=== PATIENT | male | born 1940 | race Caucasian/White ===

== ENCOUNTER 2017-10-22 15:56 | Observation (INO) | payer OTHER ==
[~2017-10-22] VITALS: Ht 172.7 cm; Wt 81.5 kg
[2017-10-22] MEDS ORDERED: SODIUM CHLORIDE 0.9% 1000ML 1,000 ML IV SCH ×2 (16:18→20:15)
[2017-10-22 16:27] LABS: BASO % 0.3 %; BASO ABS # 0.02 K/uL (0-0.2); COMPLETE YES; EOS % 2.4 %; HEMATOCRIT 36.6 % (42-52); IG% 0.6 %; MEAN CELL VOLUME 95.1 fL (80-100); MEAN CORPUSCULAR HEMOGLOBIN 32.5 pg (25-34); MEAN CORPUSCULAR HGB CONC 34.2 g/dl (32-36); MEAN PLATELET VOLUME 9.6 fL (7.4-10.4); MONO % 6.6 %; NEUT % 79.1 %; PLATELET COUNT 191 K/uL (130-400); RED BLOOD COUNT 3.85 M/uL (4.7-6.1); WHITE BLOOD COUNT 6.37 K/uL (4.8-10.8)
--- NOTE | 2017-10-22 16:34 | DIAGNOSTIC IMAGING REPORT ---
CT SCAN OF THE BRAIN WITHOUT IV CONTRAST CLINICAL HISTORY: Strokelike symptoms. COMPARISON STUDY: No priors. TECHNIQUE: Unenhanced axial CT scan of the brain is performed from the vertex to the skull base. CT DOSE: 712.55 mGy.cm FINDINGS: Brain parenchyma: There are age-related involutional changes noting [id number] patchy subcortical and periventricular microangiopathic change. There is no hemorrhage, mass effect, or evidence of acute territorial ischemia by CT criteria. Saxena-white matter is preserved. No extra-axial fluid collection is seen. Ventricles, sulci, cisterns: Prominent secondary to involutional change. Intracranial vasculature: There is atherosclerotic calcification of the cavernous carotid and vertebral arteries. Calvarium: Unremarkable. Sinuses and mastoids: Trace mucosal thickening is seen in the right maxillary antrum. The remaining visualized paranasal sinuses are clear. The mastoid air cells are well pneumatized. Orbits: The bony orbits are grossly intact. IMPRESSION: There is no hemorrhage, mass effect, or evidence of acute territorial ischemia by CT criteria. Electronically signed by: Rylan Ho M.D. 10/22/2017 4:33 PM Dictated Date/Time: 10/22/2017 4:31 PM
[2017-10-22 16:38] LABS: PARTIAL THROMBOPLASTIN RATIO 1.1; PROTHROMBIN TIME (PATIENT) 10.5 SECONDS (9.0-12.0)
[2017-10-22 16:50] LABS: BLOOD UREA NITROGEN 31 mg/dl (7-18); BUN/CREATININE RATIO 16.9 (10-20); CREATININE 1.84 mg/dl (0.60-1.40); GLUCOSE 121 mg/dl (70-99); POTASSIUM 4.2 mmol/L (3.5-5.1); SODIUM 137 mmol/L (136-145)
[2017-10-22 16:51] LABS: CALCIUM 9.6 mg/dl (8.5-10.1); CARBON DIOXIDE 25 mmol/L (21-32); CHLORIDE 103 mmol/L (98-107); MAGNESIUM 2.2 mg/dl (1.8-2.4)
--- NOTE | 2017-10-22 16:52 | DIAGNOSTIC IMAGING REPORT ---
CHEST ONE VIEW PORTABLE CLINICAL HISTORY: Stroke. COMPARISON STUDY: Chest CT August 10, 2014. FINDINGS: Postoperative findings within the left hemithorax with volume loss are unchanged since CT of August 10, 2014. Blunting of the left costophrenic angle is chronic. Old left-sided rib deformities are noted. There is no evidence of pulmonary edema or pneumonia. A large hiatal hernia is noted. Cardiomediastinal silhouette is stable. IMPRESSION: No acute cardiopulmonary findings. No change in appearance of the chest. Electronically signed by: Blair Robles M.D. 10/22/2017 4:51 PM Dictated Date/Time: 10/22/2017 4:50 PM
[2017-10-22 16:56] LABS: CKMB/CK RATIO 1.8 (0-3.0)
[2017-10-22] MEDS ORDERED: PRT/20 PO (17:06)
[2017-10-22] MEDS ORDERED: ZNTT/150 PO (17:06)
[2017-10-22] MEDS ORDERED: CHOL20009 PO (17:06)
[2017-10-22] MEDS ORDERED: DUTA0.5C PO (17:06)
[2017-10-22] MEDS ORDERED: MONT1TAB3 PO (17:06)
[2017-10-22] MEDS ORDERED: SIMV10TA2 PO (17:06)
[2017-10-22] MEDS ORDERED: CLR10 PO (17:06)
[2017-10-22] MEDS ORDERED: PRED-301 PO (17:06)
[2017-10-22] MEDS ORDERED: LOSA25TA18 PO (17:06)
[2017-10-22] MEDS ORDERED: TAMS0.4C38 PO (17:06)
[2017-10-22] MEDS ORDERED: PHARMACIST DISCHARGE MED REC CONSULT PRN (18:30)
[2017-10-22] MEDS ORDERED: IV FLUIDS COMPLETED PRN (18:45)
[2017-10-22] MEDS ORDERED: HydrALAZINE HCL 20 MG/ML VIAL IV. PRN (18:45)
--- NOTE | 2017-10-22 18:45 | History and Physical ---
History & Physical Date & Time of Service: Oct 22, 2017 at 18:45 Chief Complaint: Headache Primary Care Physician: Lexis Jasso M.D. History of Present Illness Source: patient, family, hospital records 77 year old male with PMH HTN, CAD s/p stent, Aortic aneurysm repair, Left carotid endarterectomy presents to the Emergency Room with complaints difficulty to find words. Pt said that today he woke up with a severe headache. He said that later in the afternoon he was trying to explain something to the cleaning lady but he could not find the words. He said that he was having trouble to formulate words. Pt said that the episode lasted about few minutes. Pt said that he had the same episode about 3 weeks ago where he could not find word. He monae that the headache located in the frontal area, constant, pounding. He denies any vision changes, weakness, numbness, dizziness, slur speech, chest pain, palpitation. Past Medical/Surgical History Medical Problems: (1) HTN (hypertension) Status: Chronic Surgical Problems: (1) Lung cancer Status: Resolved (2) S/P partial lobectomy of lung Status: Resolved Left side Carotid Endarterectomy AAA repair BPH Social History Smoking Status: Former Smoker Allergies Coded Allergies: Penicillins (Verified Allergy, Unknown, UNKNOWN, 10/22/17) Home Medications Scheduled Cholecalciferol (Vitamin D), 1 TAB PO DAILY Dutasteride (Avodart), 0.5 MG PO DAILY Loratadine (Claritin), 10 MG PO DAILY Losartan Potassium (Cozaar), 25 MG PO UD Montelukast Sodium (Singulair), 10 MG PO DAILY Pantoprazole (Protonix), 20 MG PO DAILY Prednisone (Prednisone), 5 MG PO DAILY Ranitidine (Zantac), 150 MG PO DAILY Simvastatin (Zocor), 10 MG PO QPM Tamsulosin Hcl (Flomax), 0.4 MG PO DAILY Review of Systems Constitutional: No fever, No chills, No weakness Eyes: No worsening of vision, No diplopia ENT: No hearing loss, No nasal symptoms Respiratory: No cough, No sputum, No shortness of breath Cardiovascular: No chest pain, No orthopnea, No claudication, No palpitations Abdomen: No pain, No nausea, No vomiting Musculoskeletal: No swelling, No calf pain Genitourinary - Male: No hematuria, No dysuria Neurologic: No paralysis, No weakness, No numbness/tingling Psychiatric: No depression symptoms, No substance abuse Endocrine: No excessive thirst Hematologic / Lymphatic: No abnormal bleeding/bruising Integumentary: No rash, No itch Physical Exam Vital Signs Date Time Temp Pulse Resp B/P (MAP) Pulse Ox O2 Delivery O2 Flow Rate FiO2 10/22/17 18:39 76 20 160/88 98 Room Air 10/22/17 17:44 79 18 191/108 95 Room Air 10/22/17 17:23 78 10/22/17 17:19 80 20 166/97 96 Room Air 10/22/17 16:45 98 Room Air 10/22/17 16:44 76 23 168/105 98 Room Air 10/22/17 16:13 79 24 170/108 95 10/22/17 16:04 36.7 76 24 180/113 97 Room Air General Appearance: WD/WN, no apparent distress Head: normocephalic Eyes: PERRL, EOMI ENT: hearing grossly normal Neck: no adenopathy, no JVD Respiratory/Chest: normal breath sounds, no respiratory distress, no accessory muscle use Cardiovascular: regular rate, rhythm, no JVD Abdomen/GI: normal bowel sounds, non tender, soft Back: no CVA tenderness Extremities/Musculoskelatal: no calf tenderness, no pedal edema Neurologic/Psych: pm technician II-XII nml as tested, no motor/sensory deficits, alert, oriented x 3 Skin: warm/dry, no rash Diagnostics Laboratory Results Results Past 24 Hours Test 10/22/17 15:35 10/22/17 16:53 10/22/17 17:00 Range/Units White Blood Count 6.37 4.8-10.8 K/uL Red Blood Count 3.85 4.7-6.1 M/uL Hemoglobin 12.5 14.0-18.0 g/dL Hematocrit 36.6 42-52 % Mean Corpuscular Volume 95.1 80-100 fL Mean Corpuscular Hemoglobin 32.5 25-34 pg Mean Corpuscular Hemoglobin Concent 34.2 32-36 g/dl Platelet Count 191 130-400 K/uL Mean Platelet Volume 9.6 7.4-10.4 fL Neutrophils (%) (Auto) 79.1 % Lymphocytes (%) (Auto) 11.0 % Monocytes (%) (Auto) 6.6 % Eosinophils (%) (Auto) 2.4 % Basophils (%) (Auto) 0.3 % Neutrophils # (Auto) 5.04 1.4-6.5 K/uL Lymphocytes # (Auto) 0.70 1.2-3.4 K/uL Monocytes # (Auto) 0.42 0.11-0.59 K/uL Eosinophils # (Auto) 0.15 0-0.5 K/uL Basophils # (Auto) 0.02 0-0.2 K/uL RDW Standard Deviation 47.3 36.4-46.3 fL RDW Coefficient of Variation 13.6 11.5-14.5 % Immature Granulocyte % (Auto) 0.6 % Immature Granulocyte # (Auto) 0.04 0.00-0.02 K/uL Prothrombin Time 10.5 9.0-12.0 SECONDS Prothromb Time International Ratio 1.0 0.9-1.1 Activated Partial Thromboplast Time 28.0 21.0-31.0 SECONDS Partial Thromboplastin Ratio 1.1 Sodium Level 137 136-145 mmol/L Potassium Level 4.2 3.5-5.1 mmol/L Chloride Level 103 98-107 mmol/L Carbon Dioxide Level 25 21-32 mmol/L Anion Gap 8.0 3-11 mmol/L Blood Urea Nitrogen 31 7-18 mg/dl Creatinine 1.84 0.60-1.40 mg/dl Est Creatinine Clear Calc Drug Dose 34.9 ml/min Estimated GFR () 39.8 Estimated GFR (Non- 34.3 BUN/Creatinine Ratio 16.9 10-20 Random Glucose 121 70-99 mg/dl Calcium Level 9.6 8.5-10.1 mg/dl Magnesium Level 2.2 1.8-2.4 mg/dl Total Creatine Kinase 111 39-308 U/L Creatine Kinase MB 2.0 0.5-3.6 ng/ml Creatine Kinase MB Ratio 1.8 0-3.0 Troponin I < 0.015 0-0.045 ng/ml Bedside Glucose 148 70-99 mg/dl Bedside Prothrombin Time INR 1.0 0.9-1.[address] SCAN OF THE BRAIN WITHOUT IV CONTRAST CLINICAL HISTORY: Strokelike symptoms. COMPARISON STUDY: No priors. TECHNIQUE: Unenhanced axial CT scan of the brain is performed from the vertex to the skull base. CT DOSE: 712.55 mGy.cm FINDINGS: Brain parenchyma: There are age-related involutional changes noting [id number]-ev-[id number] patchy subcortical and periventricular microangiopathic change. There is no hemorrhage, mass effect, or evidence of acute territorial ischemia by CT criteria. Saxena-white matter is preserved. No extra-axial fluid collection is seen. Ventricles, sulci, cisterns: Prominent secondary to involutional change. Intracranial vasculature: There is atherosclerotic calcification of the cavernous carotid and vertebral arteries. Calvarium: Unremarkable. Sinuses and mastoids: Trace mucosal thickening is seen in the right maxillary antrum. The remaining visualized paranasal sinuses are clear. The mastoid air cells are well pneumatized. Orbits: The bony orbits are grossly intact. IMPRESSION: There is no hemorrhage, mass effect, or evidence of acute territorial ischemia by CT criteria. Electronically signed by: Rylan Ho M.D. 10/22/2017 4:33 PM Dictated Date/Time: 10/22/2017 4:31 PM CHEST ONE VIEW PORTABLE CLINICAL HISTORY: Stroke. COMPARISON STUDY: Chest CT August 10, 2014. FINDINGS: Postoperative findings within the left hemithorax with volume loss are unchanged since CT of August 10, 2014. Blunting of the left costophrenic angle is chronic. Old left-sided rib deformities are noted. There is no evidence of pulmonary edema or pneumonia. A large hiatal hernia is noted. Cardiomediastinal silhouette is stable. IMPRESSION: No acute cardiopulmonary findings. No change in appearance of the chest. Electronically signed by: Blair Robles M.D. 10/22/2017 4:51 PM Dictated Date/Time: 10/22/2017 4:50 PM Impression Assessment and Plan Difficulty to find words Need to R/O CVA CT head showed no acute intracranial abnormality Will get a MRI of the head, carotid u/s and ECHO Start on ASA 81 mg Neuro check EKG showed normal sinus rhythm Will keep SBP btw 160 to 170 Continue telemetry Neurology consult Check lipid, TSH, B12 Headache Possible related to Elevated BP Will start on tylenol prn HTN BP elevated Keep BP elevated for now Hydralazine PRN Hold losartan due to elevated creatine CKD Creatine elevated Unknown baseline Hold losartan Gentle IVF Monitor BMP avoid nephrotoxic agents CAD s/p stent Denies any chest pain Not on beta jesus Only taking ASA 3x weekly troponin negative AAA repair Stable Left Carotid Endarterectomy Carotid Doppler pending BPH Continue flomax and avodart Stable DVT px On heparin subq Code Status Full code Level of Care Telemetry Resuscitation Status FULL RESUSCITATION VTE Prophylaxis VTE Risk Assessment Done? Y/N: Yes Risk Level: Moderate Given or contraindicated: Unfractionated heparin SQ
--- NOTE | 2017-10-22 19:35 | DIAGNOSTIC IMAGING REPORT ---
ULTRASOUND OF THE CAROTID ARTERIES CLINICAL HISTORY: Aphasia. COMPARISON STUDY: No priors. TECHNIQUE: Real-time, grayscale, and color Doppler sonography of the carotid arteries is performed. Images are reviewed in the transverse and longitudinal planes. FINDINGS: Blood pressures were not assessed due to IV sites. The carotid arteries are patent bilaterally and demonstrate antegrade flow. There is pvch-[id number] echogenic shadowing atherosclerotic plaque seen the carotid arteries bulbs bilaterally, right greater than left. Normal doppler arterial waveforms are seen throughout. Velocity measurements are listed below. Common carotid peak systolic velocity (cm/sec): RIGHT: 98 LEFT: 89 ICA proximal peak systolic velocity (cm/sec): RIGHT: 64 LEFT: 69 ICA mid peak systolic velocity (cm/sec): RIGHT: 77 LEFT: 73 ICA distal peak systolic velocity (cm/sec): RIGHT: 54 LEFT: 67 ICA/CC peak systolic ratio: RIGHT: 0.8 LEFT: 0.8 Antegrade flow was shown in the vertebral arteries. The external carotid arteries are patent. IMPRESSION: 1. There is no sonographic evidence of hemodynamically significant stenosis in the right or left carotid arterial system. 2. Antegrade flow is shown in the vertebral arteries. Electronically signed by: Rylan Ho M.D. 10/22/2017 7:33 PM Dictated Date/Time: 10/22/2017 7:32 PM
[2017-10-22 20:04] VITALS: BP 183/99; PULSE 77; TEMP 36.6; O2SAT 95
[2017-10-22 20:05] VITALS: BP 183/99; PULSE 76; TEMP 35.8; TEMP 36.6; Ht 172.7 cm; Wt 81.5 kg
[2017-10-22 20:08] VITALS: BP 183/99; PULSE 76; TEMP 36.6; O2SAT 95
--- NOTE | 2017-10-22 20:14 | EMERGENCY ROOM VISIT NOTE ---
History Report prepared by Live: Suleman Joya Under the Supervision of: Dr. Todd Herbert M.D. First contact with patient: 16:11 Chief Complaint: HEADACHE Stated Complaint: HEADACHE History of Present Illness The patient is a 77 year old male who presents to the Emergency Room with complaints of a persistent frontal headache that began early this morning when he awoke. This afternoon about 3 hours ago, he began having trouble formulating his words. This was noticed by his cleaning lady while they were having a conversation. This only lasted about 5 minutes. The exact same episode happened 2 or 3 weeks ago as well. He denies any vision trouble, trouble ambulating, trouble swallowing, sinus congestion, weakness, or numbness. He has a past medical history of lung cancer with a partial lobectomy and hypertension. He states that he took his normal medications today. He denies any history of a previous stroke. Source of History: patient Onset: 3 hours ago Position: head Symptom Intensity: moderate Quality: ache Timing: constant Associated Symptoms: No weakness, No numbness Note: He had a 5 minute episode that was described as trouble formulating his words. He denies any trouble with his vision, gait, or ability to swallow. Review of Systems See HPI for pertinent positives & negatives. A total of 10 systems reviewed and were otherwise negative. Past Medical & Surgical Medical Problems: (1) Aphasia (2) HTN (hypertension) Surgical Problems: (1) Lung cancer (2) S/P partial lobectomy of lung Family History Omitted secondary to the patient's age. Social History Smoking Status: Former Smoker Smokeless Tobacco Use: No Drug Use: none Occupation Status: retired Current/Historical Medications Scheduled Cholecalciferol (Vitamin D), 1 TAB PO DAILY Dutasteride (Avodart), 0.5 MG PO DAILY Loratadine (Claritin), 10 MG PO DAILY Losartan Potassium (Cozaar), 25 MG PO UD Montelukast Sodium (Singulair), 10 MG PO DAILY Pantoprazole (Protonix), 20 MG PO DAILY Prednisone (Prednisone), 5 MG PO DAILY Ranitidine (Zantac), 150 MG PO DAILY Simvastatin (Zocor), 10 MG PO QPM Tamsulosin Hcl (Flomax), 0.4 MG PO DAILY Allergies Coded Allergies: Penicillins (Verified Allergy, Unknown, UNKNOWN, 10/22/17) Physical Exam Vital Signs Date Time Temp Pulse Resp B/P (MAP) Pulse Ox O2 Delivery O2 Flow Rate FiO2 10/22/17 17:44 79 18 191/108 95 Room Air 10/22/17 17:23 78 10/22/17 17:19 80 20 166/97 96 Room Air 10/22/17 16:45 98 Room Air 10/22/17 16:44 76 23 168/105 98 Room Air 10/22/17 16:13 79 24 170/108 95 10/22/17 16:04 36.7 76 24 180/113 97 Room Air Physical Exam Constitutional: Vital signs reviewed. Eyes: Pupils are equal round reactive to light. Conjunctiva are noninjected. ENT: Pharynx is clear without erythema or exudate. Mucous membranes are moist. Neck supple without meningeal signs. Respiratory: Clear to auscultation bilaterally. Breath sounds are equal bilaterally. Cardiovascular: Regular rate and rhythm. No rubs or gallops. GI: Soft, nondistended and nontender. Bowel sounds are present. Musculoskeletal: No peripheral edema. No lower extremity tenderness. Integumentary: No cyanosis. Neurological: The patient is awake and alert. Cranial nerves II-XII are intact. Motor is 5 out of 5 all extremities. Sensation is intact to light touch all extremities. Normal speech. No pronator drift. No limb ataxia. Psychiatric: Normal affect. Medical Decision & Procedures ER Provider Diagnostic Interpretation: Radiology results as stated below per my review and the radiologist's interpretation: CT SCAN OF THE BRAIN WITHOUT IV CONTRAST CLINICAL HISTORY: Strokelike symptoms. COMPARISON STUDY: No priors. TECHNIQUE: Unenhanced axial CT scan of the brain is performed from the vertex to the skull base. CT DOSE: 712.55 mGy.cm FINDINGS: Brain parenchyma: There are age-related involutional changes noting [id number] patchy subcortical and periventricular microangiopathic change. There is no hemorrhage, mass effect, or evidence of acute territorial ischemia by CT criteria. Saxena-white matter is preserved. No extra-axial fluid collection is seen. Ventricles, sulci, cisterns: Prominent secondary to involutional change. Intracranial vasculature: There is atherosclerotic calcification of the cavernous carotid and vertebral arteries. Calvarium: Unremarkable. Sinuses and mastoids: Trace mucosal thickening is seen in the right maxillary antrum. The remaining visualized paranasal sinuses are clear. The mastoid air cells are well pneumatized. Orbits: The bony orbits are grossly intact. IMPRESSION: There is no hemorrhage, mass effect, or evidence of acute territorial ischemia by CT criteria. Electronically signed by: Rylan Ho M.D. 10/22/2017 4:33 PM Dictated Date/Time: 10/22/2017 4:31 PM CHEST ONE VIEW PORTABLE CLINICAL HISTORY: Stroke. COMPARISON STUDY: Chest CT August 10, 2014. FINDINGS: Postoperative findings within the left hemithorax with volume loss are unchanged since CT of August 10, 2014. Blunting of the left costophrenic angle is chronic. Old left-sided rib deformities are noted. There is no evidence of pulmonary edema or pneumonia. A large hiatal hernia is noted. Cardiomediastinal silhouette is stable. IMPRESSION: No acute cardiopulmonary findings. No change in appearance of the chest. Electronically signed by: Blair Robles M.D. 10/22/2017 4:51 PM Dictated Date/Time: 10/22/2017 4:50 PM Laboratory Results 10/22/17 15:35 Red Blood Count 3.85, Mean Corpuscular Volume 95.1, Mean Corpuscular Hemoglobin 32.5, Mean Corpuscular Hemoglobin Concent 34.2, Mean Platelet Volume 9.6, Neutrophils (%) (Auto) 79.1, Lymphocytes (%) (Auto) 11.0, Monocytes (%) (Auto) 6.6, Eosinophils (%) (Auto) 2.4, Basophils (%) (Auto) 0.3, Neutrophils # (Auto) 5.04, Lymphocytes # (Auto) 0.70, Monocytes # (Auto) 0.42, Eosinophils # (Auto) 0.15, Basophils # (Auto) 0.02 10/22/17 15:35 Test 10/22/17 15:35 10/22/17 16:53 10/22/17 17:00 White Blood Count 6.37 K/uL (4.8-10.8) Red Blood Count 3.85 M/uL (4.7-6.1) Hemoglobin 12.5 g/dL (14.0-18.0) Hematocrit 36.6 % (42-52) Mean Corpuscular Volume 95.1 fL (80-100) Mean Corpuscular Hemoglobin 32.5 pg (25-34) Mean Corpuscular Hemoglobin Concent 34.2 g/dl (32-36) Platelet Count 191 K/uL (130-400) Mean Platelet Volume 9.6 fL (7.4-10.4) Neutrophils (%) (Auto) 79.1 % Lymphocytes (%) (Auto) 11.0 % Monocytes (%) (Auto) 6.6 % Eosinophils (%) (Auto) 2.4 % Basophils (%) (Auto) 0.3 % Neutrophils # (Auto) 5.04 K/uL (1.4-6.5) Lymphocytes # (Auto) 0.70 K/uL (1.2-3.4) Monocytes # (Auto) 0.42 K/uL (0.11-0.59) Eosinophils # (Auto) 0.15 K/uL (0-0.5) Basophils # (Auto) 0.02 K/uL (0-0.2) RDW Standard Deviation 47.3 fL (36.4-46.3) RDW Coefficient of Variation 13.6 % (11.5-14.5) Immature Granulocyte % (Auto) 0.6 % Immature Granulocyte # (Auto) 0.04 K/uL (0.00-0.02) Prothrombin Time 10.5 SECONDS (9.0-12.0) Prothromb Time International Ratio 1.0 (0.9-1.1) Activated Partial Thromboplast Time 28.0 SECONDS (21.0-31.0) Partial Thromboplastin Ratio 1.1 Anion Gap 8.0 mmol/L (3-11) Est Creatinine Clear Calc Drug Dose 34.9 ml/min Estimated GFR () 39.8 Estimated GFR (Non- 34.3 BUN/Creatinine Ratio 16.9 (10-20) Calcium Level 9.6 mg/dl (8.5-10.1) Magnesium Level 2.2 mg/dl (1.8-2.4) Total Creatine Kinase 111 U/L (39-308) Creatine Kinase MB 2.0 ng/ml (0.5-3.6) Creatine Kinase MB Ratio 1.8 (0-3.0) Troponin I < 0.015 ng/ml (0-0.045) Bedside Glucose 148 mg/dl (70-99) Bedside Prothrombin Time INR 1.0 (0.9-1.1) Laboratory results as reviewed by me. ECG Indication: other (Neurologic symptoms) Rate (beats per minute): 77 Rhythm: normal sinus Findings: Q waves (Inferior), no ectopy, other (LVH) ED Course 1611: The patient was evaluated in room B4. A complete history and physical exam was performed. 1618: Ordered Sodium Chloride 1000 ml @ 50 mls/hr IV 1726: Upon reevaluation, the patient informed me that he used to take Plavix many years ago but was taken off of it because of his lung resection. He was told that it was dangerous to continue taking it having underwent this procedure. He takes Aspirin 3 times a week. I also reviewed his test results with him at this time. 1730: [facility] We discussed the patient and his results. The patient will be further evaluated by them for further management. Medical Decision This is a 77-year-old male presents with headache and difficulty with his speech. Differential diagnosis includes expressive aphasia, CVA, TIA, metabolic derangement, intracranial mass, intracranial hemorrhage. I did perform a limited focused review of portions of the patient's old chart on the electronic medical record. The patient has had no recent pertinent visits to this hospital. I did evaluate the patient as noted above. IV access was established. The patient was placed on a continuous surveillance monitor. I did order and personally review the patient's 12-lead EKG and chest x-ray as described above. I did order and review the patient's blood work as noted in the electronic medical record. He is anemic and his creatinine is slightly elevated. I did order a CT of the head. I did review the images myself as well as the radiology report as described above. There is no evidence of intracranial hemorrhage, mass or CVA. I did reevaluate the patient. He has no symptoms at this time other than a headache. He was informed of his test results. I did recommend hospitalization for further workup as he is had 2 episodes of aphasia. I did discuss the case with the hospitalist and home health care case manager. Medication Reconcilliation Current Medication List: was personally reviewed by me Blood Pressure Screening Patient's blood pressure: Elevated blood pressure Blood pressure disposition: Referred to PCP Consults Time Called: 1724 Consulting Physician: Dr. Ap - [facility] Returned Call: [phone] We discussed the patient's case. They will evaluate the patient further as an inpatient. Impression Primary Impression: Expressive aphasia Additional Impressions: TIA (transient ischemic attack) Elevated serum creatinine Anemia Scribe Attestation The scribe's documentation has been prepared under my direct and personally reviewed by me in its entirety. I confirm that the note above accurately reflects all work, treatment, procedures, and medical decision making performed by me. Departure Information Dispostion Being Evaluated By Hospitalist Referrals No Doctor, Assigned (PCP) Patient Instructions My [facility] Problem Qualifiers Additional Impressions: TIA (transient ischemic attack) Transient cerebral ischemia type: unspecified Qualified Codes: G45.9 - Transient cerebral ischemic attack, unspecified Anemia Anemia type: unspecified type Qualified Codes: D64.9 - Anemia, unspecified
[2017-10-22] MEDS ORDERED: HEPARIN SOD 5000 UNIT/0.5 ML CARP SQ SCH (21:00)
[2017-10-22] MEDS ORDERED: SIMVASTATIN 10 MG TAB PO SCH (21:00)
[2017-10-23] VITALS (7 sets, daily range): BP systolic 158–170; BP diastolic 90–106; PULSE 73–80; TEMP 36.4–36.6; O2SAT 97–98
[2017-10-23] MEDS ORDERED: AVODART~ORDER AWAITING ACTION SCH
[2017-10-23 07:11] LABS: HEMATOCRIT 39.1 % (42-52); MEAN CELL VOLUME 96.1 fL (80-100); MEAN CORPUSCULAR HEMOGLOBIN 32.2 pg (25-34); MEAN CORPUSCULAR HGB CONC 33.5 g/dl (32-36); MEAN PLATELET VOLUME 9.8 fL (7.4-10.4); PLATELET COUNT 194 K/uL (130-400); RED BLOOD COUNT 4.07 M/uL (4.7-6.1); WHITE BLOOD COUNT 6.05 K/uL (4.8-10.8)
[2017-10-23 07:36] LABS: BUN/CREATININE RATIO 16.8 (10-20); CALCIUM 9.1 mg/dl (8.5-10.1); CREATININE 1.71 mg/dl (0.60-1.40); POTASSIUM 4.1 mmol/L (3.5-5.1)
[2017-10-23 07:42] LABS: ESTIMATED AVERAGE GLUCOSE 114 mg/dl; HA1C FLAG Normal (Normal)
[2017-10-23 07:47] LABS: CHOLESTEROL/HDL RATIO 2.3; THYROID STIMULATING HORMONE 3.28 uIu/ml (0.300-4.500)
[2017-10-23] MEDS ORDERED: SODIUM CHLORIDE 0.9% 500ML 500 ML IV SCH (08:15)
[2017-10-23] MEDS ORDERED: HydrALAZINE HCL 20 MG/ML VIAL IV. PRN (08:15)
[2017-10-23] MEDS ORDERED: MONTELUKAST SOD 10 MG TAB PO SCH (09:00)
[2017-10-23] MEDS ORDERED: TAMSULOSIN HCL 0.4 MG CAP PO SCH (09:00)
[2017-10-23] MEDS ORDERED: LOSARTAN POTASSIUM 25 MG TAB PO SCH (09:00)
[2017-10-23] MEDS ORDERED: PANTOprazole SOD 40 MG TAB PO SCH (09:00)
[2017-10-23] MEDS ORDERED: ASPIRIN 81 MG ECTAB PO SCH (09:00)
[2017-10-23] MEDS ORDERED: HEPARIN SOD 5000 UNIT/0.5 ML CARP SQ SCH (09:00)
--- NOTE | 2017-10-23 11:24 | DIAGNOSTIC IMAGING REPORT ---
MRI OF THE BRAIN WITHOUT CONTRAST CLINICAL HISTORY: Stroke HEADACHE, LUNG CARCINOMA. EXPRESSIVE APHASIA. COMPARISON STUDY: Noncontrast head CT dated 10/22/2017 FINDINGS: Sagittal T1, axial diffusion, proton density and T2 weighted axial, coronal FLAIR, and axial T1-weighted images were acquired. No intra or extra-axial mass lesions are visualized Axial diffusion-weighted images reveal no evidence of acute or subacute infarction. There is mild ventricular dilatation, likely secondary to volume loss. Proton density T2-weighted and FLAIR images reveal scattered foci of increased T2 signal within the white matter, likely on a small vessel basis. There are no abnormal flow voids. IMPRESSION: 1. No acute intracranial findings 2. No evidence of acute or subacute infarction 3. No evidence of intracranial mass on this noncontrast study. Electronically signed by: Erwin Bhakta M.D. 10/23/2017 11:22 AM Dictated Date/Time: 10/23/2017 11:19 AM
--- NOTE | 2017-10-23 13:45 | CONSULTATION REPORT ---
DATE OF CONSULTATION: 10/23/2017 REQUESTING PHYSICIAN: Nano Alfaro MD HISTORY OF PRESENT ILLNESS: Levi is 77 years old. He is a patient of Dr. Millie Jasso of [facility] and has a past medical history of hypertension, coronary artery disease post-stenting, aortic aneurysm repair, and left carotid endarterectomy, who presented to the Emergency Room with complaints of difficulty in word finding, which occurred briefly about 3 weeks ago and then again yesterday. He had awakened with a headache and then later in the afternoon, he was trying to explain something to a cleaning lady and could not find the words for about 5 minutes. The headache had abated by that time. He had a similar episode 3 weeks ago, but it is not clear whether he had the headache at that point and he denies any vision changes, weakness, numbness, dizziness, slurred speech, etc. during any of these 2 events. PAST MEDICAL HISTORY: As noted above and includes hypertension; a history of lung cancer, which has resolved; he has had a partial lobectomy of the lung; he has had an abdominal aortic aneurysm repair; he has BPH; he has had coronary artery disease and a carotid endarterectomy. SOCIAL HISTORY: Reveals him to be a former smoker, nonconsumer of ethanol, and residing in [place]. MEDICATION LIST: Includes cholecalciferol, Avodart, loratadine, losartan, Singulair, Protonix, prednisone, ranitidine, simvastatin, tamsulosin, and aspirin 81 mg 3 times a week. It is not clear why this particular dosage was arranged. It appears historically that the surgeons in [place] had not put him back on aspirin after the aortic aneurysm repair and it sounds as though Dr. Jasso was concerned that they were learned about potential bleeding and reduced his aspirin from daily to 3 times a week because of this. Whatever the case, we are not going to put him back on daily aspirin. FAMILY HISTORY: Noncontributory. REVIEW OF SYSTEMS: Reveals no real systemic complaints. No issues referable to head, eyes, ears, nose and throat other than the headache and the articulatory disturbance that occurred 3 weeks ago and yesterday, but no new cardiovascular, pulmonary, gastrointestinal, genitourinary, or musculoskeletal systems other than those described above related to his past medical history. PHYSICAL EXAMINATION: VITAL SIGNS: On examination in the Emergency Room, blood pressure was 160/88, pulse was 76, and respirations 20. GENERAL: He was well developed and well nourished and appeared be in no acute distress. HEENT: There were no abnormalities on examination of head, eyes, ears, nose and throat. LUNGS: Clear. HEART: Had a regular rhythm. No murmurs were heard. No carotid bruits. ABDOMEN: Soft and nontender. EXTREMITIES: There was no peripheral edema. Peripheral pulses were normal. NEUROLOGIC: Today neurologically, he is absolutely normal. He is awake, alert, oriented in 3 spheres, quite conversant, has no articulatory disturbance. He says naming issues can repeat, can read and write. There is no facial motility problem. No articulatory problems. Normal facial sensation is seen. Eye movements are normal. Visual barth are full. Tongue protrudes in the midline. Neck flexor strength is normal. I do not hear any bruits. Gait, station and coordination are normal. There is no spasticity, ataxia or drift or pronation sign, tremor, tics or choreiform activity. Reflexes are a little hypoactive, but present. Toes are downgoing. No Luciana's signs are seen. Sensation reveals some age-dependent vibratory loss over the lower extremities distally with preservation of proprioception, light touch and temperature. IMAGING STUDIES: Have shown no evidence for an acute infarction. There are some scattered white matter changes, none incompatible with his age, but nothing looks subacute or active. Carotid duplex studies are unremarkable. EKG showed sinus rhythm thus far. PLAN: At this point, I think he probably could be discharged on daily aspirin and follow up with his primary care physician. I suspect these events could have been TIAs. He does not have a clear history of migraines in the past, but one wonders about migrainous event with the headache as being part of it. All this is academic as I do not think we need to do any further studies and he really is not going to need a neurologic followup unless these events continue to occur. I discussed these findings and impression with Dr. Alfaro and I think the patient is going to be discharged today back to his home.
--- NOTE | 2017-10-23 14:38 | Progress Note ---
Medicine Progress Note Date & Time of Visit: Oct 23, 2017 at 13:26. Subjective Pt was seen and examined Sitting in chair with no distress Pt said that he feels fine Pt is getting very anxious to do home he does not want to wait to discharge His blood pressure is getting higher the longer i kept him in the hospital He denies any chest pain, palpitation, dizziness and SOB Objective Last 8 Hrs Date Time Temp Pulse Resp B/P (MAP) Pulse Ox O2 Delivery O2 Flow Rate FiO2 10/23/17 12:40 36.5 80 20 170/98 (122) 98 Room Air 10/23/17 08:00 97 Room Air 10/23/17 07:17 36.4 73 20 166/93 (117) 97 Room Air Physical Exam: General- No acute distress Head- atraumatic Eyes- PERRL, EOMI ENT- oropharynx clear Neck- supple, no JVD Lungs- clear to auscultation Heart- regular rhythm; no murmur Abdomen- normal bowel sounds, soft Extremities-no calf tenderness Neuro- alert, oriented x 3; PERRL, EOMI Skin- warm & dry Laboratory Results: Last 24 Hours Test 10/22/17 15:35 10/22/17 16:53 10/22/17 17:00 10/22/17 21:46 White Blood Count 6.37 K/uL Red Blood Count 3.85 M/uL Hemoglobin 12.5 g/dL Hematocrit 36.6 % Mean Corpuscular Volume 95.1 fL Mean Corpuscular Hemoglobin 32.5 pg Mean Corpuscular Hemoglobin Concent 34.2 g/dl Platelet Count 191 K/uL Mean Platelet Volume 9.6 fL Neutrophils (%) (Auto) 79.1 % Lymphocytes (%) (Auto) 11.0 % Monocytes (%) (Auto) 6.6 % Eosinophils (%) (Auto) 2.4 % Basophils (%) (Auto) 0.3 % Neutrophils # (Auto) 5.04 K/uL Lymphocytes # (Auto) 0.70 K/uL Monocytes # (Auto) 0.42 K/uL Eosinophils # (Auto) 0.15 K/uL Basophils # (Auto) 0.02 K/uL RDW Standard Deviation 47.3 fL RDW Coefficient of Variation 13.6 % Immature Granulocyte % (Auto) 0.6 % Immature Granulocyte # (Auto) 0.04 K/uL Prothrombin Time 10.5 SECONDS Prothromb Time International Ratio 1.0 Activated Partial Thromboplast Time 28.0 SECONDS Partial Thromboplastin Ratio 1.1 Sodium Level 137 mmol/L Potassium Level 4.2 mmol/L Chloride Level 103 mmol/L Carbon Dioxide Level 25 mmol/L Anion Gap 8.0 mmol/L Blood Urea Nitrogen 31 mg/dl Creatinine 1.84 mg/dl Est Creatinine Clear Calc Drug Dose 34.9 ml/min Estimated GFR () 39.8 Estimated GFR (Non- 34.3 BUN/Creatinine Ratio 16.9 Random Glucose 121 mg/dl Calcium Level 9.6 mg/dl Magnesium Level 2.2 mg/dl Total Creatine Kinase 111 U/L Creatine Kinase MB 2.0 ng/ml Creatine Kinase MB Ratio 1.8 Troponin I < 0.015 ng/ml < 0.015 ng/ml Bedside Glucose 148 mg/dl Bedside Prothrombin Time INR 1.0 Test 10/23/17 06:43 White Blood Count 6.05 K/uL Red Blood Count 4.07 M/uL Hemoglobin 13.1 g/dL Hematocrit 39.1 % Mean Corpuscular Volume 96.1 fL Mean Corpuscular Hemoglobin 32.2 pg Mean Corpuscular Hemoglobin Concent 33.5 g/dl RDW Standard Deviation 46.8 fL RDW Coefficient of Variation 13.5 % Platelet Count 194 K/uL Mean Platelet Volume 9.8 fL Sodium Level 139 mmol/L Potassium Level 4.1 mmol/L Chloride Level 105 mmol/L Carbon Dioxide Level 26 mmol/L Anion Gap 8.0 mmol/L Blood Urea Nitrogen 29 mg/dl Creatinine 1.71 mg/dl Est Creatinine Clear Calc Drug Dose 34.4 ml/min Estimated GFR () 43.5 Estimated GFR (Non- 37.5 BUN/Creatinine Ratio 16.8 Random Glucose 96 mg/dl Estimated Average Glucose 114 mg/dl Hemoglobin A1c 5.6 % Calcium Level 9.1 mg/dl Triglycerides Level 101 mg/dl Cholesterol Level 116 mg/dl HDL Cholesterol 51 mg/dl LDL Cholesterol, Calculated 45 mg/dl VLDL Cholesterol, Calculated 20 mg/dl Cholesterol/HDL Ratio 2.3 Vitamin B12 Level 450 pg/mL Folate 16.87 ng/mL Thyroid Stimulating Hormone (TSH) 3.280 uIu/ml Assessment & Plan Difficulty to find words Need to R/O CVA CT head showed no acute intracranial abnormality Carotid U/S showed no sonographic evidence of hemodynamically significant stenosis in the right or left carotid arterial system MRI of the head showed no acute intracranial abnormality Continue ASA 81 mg daily Case discussed with Neurology EKG showed normal sinus rhythm No arrhythmia on tele monitor LDL at goal Pt wants to go home. Does not want to wait for the echo, recommend outpatient echo Headache Possible related to Elevated BP stable HTN Pt was taking BP med 3xweekly, advised pt to take it daily BP elevated Keep BP elevated for now Hydralazine PRN Resume losartan on discharge Monitor BP CKD Creatine elevated Unknown baseline Resume losartan on admission very anxiouis to go home Increase fluid intake Monitor BMP avoid nephrotoxic agents CAD s/p stent Denies any chest pain Not on beta jesus Only taking ASA 3x weekly troponin negative AAA repair Stable Left Carotid Endarterectomy Carotid Doppler pending BPH Continue flomax and avodart Stable DVT px On heparin subq Code Status Full code Disposition Follow up with PCP with 1 week Current Inpatient Medications: Current Inpatient Medications Medications (Trade) Dose Ordered Sig/Salome Route Start Time Stop Time Status Last Admin Dose Admin Aspirin (Ecotrin Tab) 81 mg QAM PO 10/23/17 09:00 11/22/17 08:59 10/23/17 08:31 81 MG Miscellaneous Information (Pharmacist Discharge Med Rec Consult) 1 ea UD PRN N/A 10/22/17 18:30 11/21/17 18:29 Losartan Potassium (coZAAR TAB) 25 mg DAILY PO 10/23/17 09:00 11/22/17 08:59 Future Hold Montelukast Sodium (Singulair Tab) 10 mg DAILY PO 10/23/17 09:00 11/22/17 08:59 10/23/17 08:32 10 MG Prednisone (PredniSONE TAB) 5 mg DAILY PO 10/23/17 09:00 11/22/17 08:59 10/23/17 08:32 5 MG Simvastatin (Zocor Tab) 10 mg QPM PO 10/22/17 21:00 11/21/17 20:59 10/22/17 20:35 10 MG Tamsulosin HCl (Flomax Cap) 0.4 mg DAILY PO 10/23/17 09:00 11/22/17 08:59 10/23/17 08:32 0.4 MG Miscellaneous Information (Order Awaiting Action) 1 ea QS N/A 11/23/17 00:00 11/22/17 00:00 Pantoprazole Sodium (Protonix Tab) 40 mg QAM PO 10/23/17 09:00 11/22/17 08:59 10/23/17 08:31 40 MG Heparin Sodium (Porcine) (Heparin Sq 5000 Unit/0.5ml) 5,000 unit Q12 SQ 10/23/17 09:00 11/21/17 20:59 10/23/17 09:38 5,000 UNIT Sodium Chloride 1,000 ml @ 70 mls/hr [id number] IV 10/22/17 20:15 10/23/17 17:40 10/22/17 20:35 70 MLS/HR Miscellaneous (Iv Fluids Completed) 1 ea PRN PRN N/A 10/22/17 18:45 10/22/18 18:44 Hydralazine HCl (HydrALAZINE INJ) 10 mg Q4 PRN IV. 10/23/17 08:15 11/21/17 18:44
[2017-10-23] MEDS ORDERED: CLONAZEPAM 1 MG TAB ONE (14:39)
[2017-10-23] MEDS ORDERED: ASPEC81 PO (14:41)
[2017-10-23] MEDS ORDERED: LOSA25TA18 PO (14:41)
--- NOTE | 2017-10-23 14:44 | Discharge Instructions ---
Discharge Instructions Date of Service Oct 23, 2017. Admission Reason for Admission: Aphasia,Htn Discharge Discharge Diagnosis / Problem: TIA, HTN, CAD, CKD Discharge Goals Goal(s): Decrease discomfort, Improve function, Improve disease control Activity Recommendations Activity Limitations: resume your previous activity (as tolerated) . Instructions / Follow-Up Instructions / Follow-Up Schedule follow up with your primary care provider within 1 week Continue Losartan daily for the Blood pressure Continue aspirin daily Monitor blood pressure Check BMP within 1 week for the elevated creatine Fall precaution Current Hospital Diet Patient's current hospital diet: Low Sodium Diet (2gm Na), AHA Diet (Heart Healthy) Discharge Diet Recommended Diet: AHA Diet (Heart Healthy), Low Sodium Diet (2gm Na) Pending Studies Studies pending at discharge: no Laboratory Results Hemoglobin A1c Test 10/23/17 06:43 Range/Units Estimated Average Glucose 114 mg/dl Hemoglobin A1c 5.6 4.5-5.6 % Lipid Panel Test 10/23/17 06:43 Range/Units Triglycerides Level 101 0-150 mg/dl Cholesterol Level 116 0-200 mg/dl HDL Cholesterol 51 mg/dl Cholesterol/HDL Ratio 2.3 LDL Cholesterol, Calculated 45 mg/dl Medical Emergencies . Who to Call and When: Medical Emergencies: If at any time you feel your situation is an emergency, please call 911 immediately. . Non-Emergent Contact Non-Emergency issues call your: Primary Care Provider Call Non-Emergent contact if: you have any medication questions . . "Provider Documentation" section prepared by Nano Alfaro. . VTE Core Measure Inpt VTE Proph given/why not?: Unfractionated heparin SQ
[2017-10-23] MEDS ORDERED: CLONIDINE HCL 0.1 MG TAB PO ONE (14:45)
--- NOTE | 2017-10-27 23:30 | Discharge Summary ---
Discharge Summary Date of Service Oct 27, 2017. Discharge Summary Admission Date: Oct 22, 2017 at 18:36 Discharge Date: Oct 23, 2017 Discharge Disposition: Home Principal Diagnosis: Aphasia Secondary Diagnoses/Problems: HTN AAA repair Headache BPH Procedures: MRI OF THE BRAIN WITHOUT CONTRAST CLINICAL HISTORY: Stroke HEADACHE, LUNG CARCINOMA. EXPRESSIVE APHASIA. COMPARISON STUDY: Noncontrast head CT dated 10/22/2017 FINDINGS: Sagittal T1, axial diffusion, proton density and T2 weighted axial, coronal FLAIR, and axial T1-weighted images were acquired. No intra or extra-axial mass lesions are visualized Axial diffusion-weighted images reveal no evidence of acute or subacute infarction. There is mild ventricular dilatation, likely secondary to volume loss. Proton density T2-weighted and FLAIR images reveal scattered foci of increased T2 signal within the white matter, likely on a small vessel basis. There are no abnormal flow voids. IMPRESSION: 1. No acute intracranial findings 2. No evidence of acute or subacute infarction 3. No evidence of intracranial mass on this noncontrast study. Electronically signed by: Erwin Bhakta M.D. 10/23/2017 11:22 AM Dictated Date/Time: 10/23/2017 11:19 AM [~ rep ct add3]] ULTRASOUND OF THE CAROTID ARTERIES CLINICAL HISTORY: Aphasia. COMPARISON STUDY: No priors. TECHNIQUE: Real-time, grayscale, and color Doppler sonography of the carotid arteries is performed. Images are reviewed in the transverse and longitudinal planes. FINDINGS: Blood pressures were not assessed due to IV sites. The carotid arteries are patent bilaterally and demonstrate antegrade flow. There is [id number] echogenic shadowing atherosclerotic plaque seen the carotid arteries bulbs bilaterally, right greater than left. Normal doppler arterial waveforms are seen throughout. Velocity measurements are listed below. Common carotid peak systolic velocity (cm/sec): RIGHT: 98 LEFT: 89 ICA proximal peak systolic velocity (cm/sec): RIGHT: 64 LEFT: 69 ICA mid peak systolic velocity (cm/sec): RIGHT: 77 LEFT: 73 ICA distal peak systolic velocity (cm/sec): RIGHT: 54 LEFT: 67 ICA/CC peak systolic ratio: RIGHT: 0.8 LEFT: 0.8 Antegrade flow was shown in the vertebral arteries. The external carotid arteries are patent. IMPRESSION: 1. There is no sonographic evidence of hemodynamically significant stenosis in the right or left carotid arterial system. 2. Antegrade flow is shown in the vertebral arteries. Electronically signed by: Rylan Ho M.D. 10/22/2017 7:33 PM Dictated Date/Time: 10/22/2017 7:32 PM [~ rep ct add3]] CHEST ONE VIEW PORTABLE CLINICAL HISTORY: Stroke. COMPARISON STUDY: Chest CT August 10, 2014. FINDINGS: Postoperative findings within the left hemithorax with volume loss are unchanged since CT of August 10, 2014. Blunting of the left costophrenic angle is chronic. Old left-sided rib deformities are noted. There is no evidence of pulmonary edema or pneumonia. A large hiatal hernia is noted. Cardiomediastinal silhouette is stable. IMPRESSION: No acute cardiopulmonary findings. No change in appearance of the chest. Electronically signed by: Blair Robles M.D. 10/22/2017 4:51 PM Dictated Date/Time: 10/22/2017 4:50 PM [~ rep ct add3]] CHEST ONE VIEW PORTABLE CLINICAL HISTORY: Stroke. COMPARISON STUDY: Chest CT August 10, 2014. FINDINGS: Postoperative findings within the left hemithorax with volume loss are unchanged since CT of August 10, 2014. Blunting of the left costophrenic angle is chronic. Old left-sided rib deformities are noted. There is no evidence of pulmonary edema or pneumonia. A large hiatal hernia is noted. Cardiomediastinal silhouette is stable. IMPRESSION: No acute cardiopulmonary findings. No change in appearance of the chest. Electronically signed by: Blair Robles M.D. 10/22/2017 4:51 PM Dictated Date/Time: 10/22/2017 4:[address] SCAN OF THE BRAIN WITHOUT IV CONTRAST CLINICAL HISTORY: Strokelike symptoms. COMPARISON STUDY: No priors. TECHNIQUE: Unenhanced axial CT scan of the brain is performed from the vertex to the skull base. CT DOSE: 712.55 mGy.cm FINDINGS: Brain parenchyma: There are age-related involutional changes noting [id number] patchy subcortical and periventricular microangiopathic change. There is no hemorrhage, mass effect, or evidence of acute territorial ischemia by CT criteria. Saxena-white matter is preserved. No extra-axial fluid collection is seen. Ventricles, sulci, cisterns: Prominent secondary to involutional change. Intracranial vasculature: There is atherosclerotic calcification of the cavernous carotid and vertebral arteries. Calvarium: Unremarkable. Sinuses and mastoids: Trace mucosal thickening is seen in the right maxillary antrum. The remaining visualized paranasal sinuses are clear. The mastoid air cells are well pneumatized. Orbits: The bony orbits are grossly intact. IMPRESSION: There is no hemorrhage, mass effect, or evidence of acute territorial ischemia by CT criteria. Electronically signed by: Rylan Ho M.D. 10/22/2017 4:33 PM Dictated Date/Time: 10/22/2017 4:31 PM Consultations: Neuro Medication Reconciliation New Medications: Aspirin (Aspirin EC Low Dose) 81 Mg Ectab 81 MG PO QAM for 30 Days Changed Medications: Losartan Potassium (Cozaar) 25 Mg Tab 25 MG PO DAILY for 30 Days, #30 TAB (Changed from: UD; Removed Instructions) Continued Medications: Cholecalciferol (Vitamin D) 2,000 Unit Tab 1 TAB PO DAILY Dutasteride (Avodart) 0.5 Mg Cap 0.5 MG PO DAILY, CAP Loratadine (Claritin) 10 Mg Tab 10 MG PO DAILY, TAB Montelukast Sodium (Singulair) 10 Mg Tab 10 MG PO DAILY, TAB Pantoprazole (Protonix) 20 Mg Tab 20 MG PO DAILY, #30 TAB Prednisone (Prednisone) 5 Mg Tab 5 MG PO DAILY, TAB Ranitidine (Zantac) 150 Mg Tab 150 MG PO DAILY, TAB Simvastatin (Zocor) 10 Mg Tab 10 MG PO QPM, TAB Tamsulosin Hcl (Flomax) 0.4 Mg Cap 0.4 MG PO DAILY, CAP Admission Information HPI (per Admitting provider): 77 year old male with PMH HTN, CAD s/p stent, Aortic aneurysm repair, Left carotid endarterectomy presents to the Emergency Room with complaints difficulty to find words. Pt said that today he woke up with a severe headache. He said that later in the afternoon he was trying to explain something to the cleaning lady but he could not find the words. He said that he was having trouble to formulate words. Pt said that the episode lasted about few minutes. Pt said that he had the same episode about 3 weeks ago where he could not find word. He monae that the headache located in the frontal area, constant, pounding. He denies any vision changes, weakness, numbness, dizziness, slur speech, chest pain, palpitation. Physical Exam (per Admitting): General Appearance: WD/WN, no apparent distress Head: normocephalic Eyes: PERRL, EOMI ENT: hearing grossly normal Neck: no adenopathy, no JVD Respiratory/Chest: normal breath sounds, no respiratory distress, no accessory muscle use Cardiovascular: regular rate, rhythm, no JVD Abdomen/GI: normal bowel sounds, non tender, soft Back: no CVA tenderness Extremities/Musculoskelatal: no calf tenderness, no pedal edema Neurologic/Psych: supply chain manager II-XII nml as tested, no motor/sensory deficits, alert , oriented x 3 Skin: warm/dry, no rash Hospital Course Difficulty to find words Need to R/O CVA CT head showed no acute intracranial abnormality Carotid U/S showed no sonographic evidence of hemodynamically significant stenosis in the right or left carotid arterial system MRI of the head showed no acute intracranial abnormality Continue ASA 81 mg daily Case discussed with Neurology EKG showed normal sinus rhythm No arrhythmia on tele monitor LDL at goal Pt wants to go home. Does not want to wait for the echo, recommend outpatient echo Headache Possible related to Elevated BP stable HTN Pt was taking BP med 3xweekly, advised pt to take it daily BP elevated Keep BP elevated for now Hydralazine PRN Resume losartan on discharge Monitor BP CKD Creatine elevated Unknown baseline Resume losartan on admission very anxiouis to go home Increase fluid intake Monitor BMP avoid nephrotoxic agents CAD s/p stent Denies any chest pain Not on beta jesus Only taking ASA 3x weekly troponin negative AAA repair Stable Left Carotid Endarterectomy Carotid Doppler pending BPH Continue flomax and avodart Stable DVT px On heparin subq Code Status Full code Disposition Follow up with PCP with 1 week Total time spent on discharge = 35 minutes This includes examination of the patient, discharge planning, medication reconciliation, and communication with other providers. Discharge Instructions Discharge Instructions Date of Service Oct 23, 2017. Admission Reason for Admission: Aphasia,Htn Discharge Discharge Diagnosis / Problem: TIA, HTN, CAD, CKD Discharge Goals Goal(s): Decrease discomfort, Improve function, Improve disease control Activity Recommendations Activity Limitations: resume your previous activity (as tolerated) . Instructions / Follow-Up Instructions / Follow-Up Schedule follow up with your primary care provider within 1 week Continue Losartan daily for the Blood pressure Continue aspirin daily Monitor blood pressure Check BMP within 1 week for the elevated creatine Fall precaution Current Hospital Diet Patient's current hospital diet: Low Sodium Diet (2gm Na), AHA Diet (Heart Healthy) Discharge Diet Recommended Diet: AHA Diet (Heart Healthy), Low Sodium Diet (2gm Na) Pending Studies Studies pending at discharge: no Laboratory Results Hemoglobin A1c Test 10/23/17 06:43 Range/Units Estimated Average Glucose 114 mg/dl Hemoglobin A1c 5.6 4.5-5.6 % Lipid Panel Test 10/23/17 06:43 Range/Units Triglycerides Level 101 0-150 mg/dl Cholesterol Level 116 0-200 mg/dl HDL Cholesterol 51 mg/dl Cholesterol/HDL Ratio 2.3 LDL Cholesterol, Calculated 45 mg/dl Medical Emergencies . Who to Call and When: Medical Emergencies: If at any time you feel your situation is an emergency, please call 911 immediately. . Non-Emergent Contact Non-Emergency issues call your: Primary Care Provider Call Non-Emergent contact if: you have any medication questions . . "Provider Documentation" section prepared by Nano Alfaro. . VTE Core Measure Inpt VTE Proph given/why not?: Unfractionated heparin SQ Additional Copies To Lexis Jasso M.D.
== END 2017-10-23 15:47 | disposition home or self-care (01) ==
LOC: EDBD 15:56 → C.EDB 15:57 → C.2T 18:36 → ENRESERV 18:54
PROVIDERS: ADMIT Internal Medicine; ATTEND Internal Medicine
DX: R47.01 Aphasia (principal); R51 Headache; I12.9 Hypertensive chronic kidney disease with stage 1 through stage 4 chronic kidney disease, or unspecified chronic kidney disease; N18.9 Chronic kidney disease, unspecified; I25.10 Atherosclerotic heart disease of native coronary artery without angina pectoris; D64.9 Anemia, unspecified; N40.0 Benign prostatic hyperplasia without lower urinary tract symptoms; Z85.118 Personal history of other malignant neoplasm of bronchus and lung; Z87.891 Personal history of nicotine dependence; Z90.2 Acquired absence of lung [part of]; Z79.899 Other long term (current) drug therapy; Z95.5 Presence of coronary angioplasty implant and graft

== ENCOUNTER 2018-07-05 11:27 | Inpatient (IN) | payer OTHER ==
[~2018-07-05] VITALS: Ht 182.9 cm; Wt 83.2 kg
[~2018-07-05 11:27] MED LIST: ASPI-320 PO; CHOL20009 PO; CLR10 PO; DUTA0.5C PO; LOSA25TA18 PO; MONT1TAB3 PO; PRED-301 PO; PRT/20 PO; RANI150T85 PO; SIMV10TA2 PO; TAMS0.4C38 PO
--- NOTE | 2018-07-05 11:58 | DIAGNOSTIC IMAGING REPORT ---
CHEST ONE VIEW PORTABLE CLINICAL HISTORY: EVALUATE GI BLEED COMPARISON STUDY: 10/22/2017 FINDINGS: Chronic pleural reactive changes left base. Small fixed lateral hernia. Postoperative changes overlying left hilum. No acute abnormality. IMPRESSION: Chronic and postoperative change. No acute process. The above report was generated using voice recognition software. It may contain grammatical, syntax or spelling errors. Electronically signed by: Jayson Eden M.D. 07/05/2018 11:56 AM Dictated Date/Time: 07/05/2018 11:56 AM
[2018-07-05 12:02] LABS: HEMATOCRIT 26.6 % (42-52); HEMOGLOBIN 8.8 g/dL (14.0-18.0); MEAN CELL VOLUME 93.3 fL (80-100); MEAN CORPUSCULAR HEMOGLOBIN 30.9 pg (25-34); MEAN CORPUSCULAR HGB CONC 33.1 g/dl (32-36); MEAN PLATELET VOLUME 9.3 fL (7.4-10.4); PLATELET COUNT 164 K/uL (130-400); RED CELL DISTRIBUTION WIDTH SD 50.4 fL (36.4-46.3); WHITE BLOOD COUNT 6.23 K/uL (4.8-10.8)
[2018-07-05 12:19] LABS: BASO % 0.3 %; BASO ABS # 0.02 K/uL (0-0.2); EOS % 2.7 %; EOS ABS # 0.17 K/uL (0-0.5); IG# 0.06 K/uL (0.00-0.02); LYMPH % 15.9 %; LYMPH ABS # 0.99 K/uL (1.2-3.4); MONO % 7.9 %; MONO ABS # 0.49 K/uL (0.11-0.59); NEUT % 72.2 %
[2018-07-05 12:21] LABS: PTT PATIENT 21.7 SECONDS (21.0-31.0)
[2018-07-05 12:30] LABS: CALCIUM 8.7 mg/dl (8.5-10.1); CREATININE 1.93 mg/dl (0.60-1.40); TOTAL PROTEIN 6.8 gm/dl (6.4-8.2)
[2018-07-05] MEDS ORDERED: ALLO100T PO (12:43)
[2018-07-05] MEDS ORDERED: METO-217 PO (12:43)
[2018-07-05] MEDS ORDERED: ISM20 PO (12:43)
[2018-07-05] MEDS ORDERED: ONDANSETRON INJ 2 MG/ML 2 ML VIAL IV STA (12:44)
[2018-07-05] MEDS ORDERED: PANTOprazole INJ 80 MG in DEXTROSE 5% 100ML IV SCH (13:15)
[2018-07-05 13:20] VITALS: O2SAT 96; Ht 182.9 cm; Wt 83.2 kg
[2018-07-05] MEDS ORDERED: ACETAMINOPHEN 325 MG TAB PO PRN (13:30)
[2018-07-05] MEDS ORDERED: ONDANSETRON INJ 2 MG/ML 2 ML VIAL IV PRN (13:30)
[2018-07-05] MEDS ORDERED: PANTOprazole INJ 40 MG in DEXTROSE 5% 100ML IV SCH (13:30)
[2018-07-05] MEDS ORDERED: ASPI-320 PO (13:37)
[2018-07-05] MEDS ORDERED: FLUT0.15 NAE (13:37)
[2018-07-05] MEDS ORDERED: NTRGSL/4 UT (13:37)
[2018-07-05 14:14] VITALS: BP 138/78; PULSE 70; TEMP 36.5; O2SAT 96
--- NOTE | 2018-07-05 14:22 | EMERGENCY ROOM VISIT NOTE ---
History Report prepared by Live: Adrienne Marx Under the Supervision of: Dr. Ciro Moore M.D. First contact with patient: 11:30 Stated Complaint: SYNCOPE History of Present Illness The patient is a 78 year old male who presents to the Emergency Room with complaints of a near syncopal episode this morning after voodoo. He denies losing consciousness but reports being sweaty and feeling light-headed. He also reports feeling nauseous but denies having chest pain and headaches. The patient reports that he was in [place] 2 days ago as he has been having black stools for the last 5-6 days. He states that his doctor referred him to a GI specialist in [place]. Per son, the patient had a scope done a month ago for black stools but states that they did not find anything. The patient states that he had stents placed in his heart years ago and states that he had a catheterization done last week. Per son, the patient had some blockages on this catheterization but was told that they are too small to do anything. Source of History: patient, family Onset: this morning Position: other (generalized) Quality: other (near syncopal episode ) Associated Symptoms: + diaphoresis, + weakness (light-headed), No LOC, No headache, No chest pain Review of Systems See HPI for pertinent positives and negatives. A total of ten systems were reviewed and were otherwise negative. Past Medical & Surgical Medical Problems: (1) Aphasia (2) BPH (benign prostatic hyperplasia) (3) CAD (coronary atherosclerotic disease) (4) GI bleed (5) HTN (hypertension) Surgical Problems: (1) H/O aortic aneurysm repair (2) History of left-sided carotid endarterectomy (3) Lung cancer (4) S/P partial lobectomy of lung Family History Patient reports no known family medical history. Social History Smoking Status: Former Smoker Drug Use: none Occupation Status: retired Current/Historical Medications Scheduled Allopurinol (Zyloprim), 100 MG PO MWF Aspirin (Aspirin EC Low Dose), 81 MG PO DAILY Cholecalciferol (Vitamin D), 1 TAB PO DAILY Dutasteride (Avodart), 0.5 MG PO DAILY Fluticasone Propionate (Nasal) (Flonase Allergy Relief), 2 SPRAY MARIA ESTHER HS Isosorbide Mononitrate (Isosorbide Mononitrate), 20 MG PO QAM Loratadine (Claritin), 10 MG PO DAILY Metoprolol Succinate (Toprol Xl), 50 MG PO BID Montelukast Sodium (Singulair), 10 MG PO DAILY Nitroglycerin (Nitrostat), 0.4 MG UT PRN Pantoprazole (Protonix), 20 MG PO BID Ranitidine (Zantac), 150 MG PO DAILY Simvastatin (Zocor), 10 MG PO QPM Tamsulosin Hcl (Flomax), 0.4 MG PO DAILY Allergies Coded Allergies: Penicillins (Verified Allergy, Unknown, UNKNOWN, 07/05/18) Physical Exam Vital Signs Date Time Temp Pulse Resp B/P (MAP) Pulse Ox O2 Delivery O2 Flow Rate FiO2 07/05/18 13:34 68 18 108/65 96 Room Air 07/05/18 13:20 96 Room Air 07/05/18 12:31 65 18 108/65 99 Room Air 07/05/18 11:48 70 07/05/18 11:38 37.0 62 18 114/67 96 Room Air 07/05/18 11:38 94 Room Air Physical Exam GENERAL: Awake, alert, well-appearing, in no distress HENT: Normocephalic, atraumatic. Oropharynx unremarkable. EYES: Normal conjunctiva. Sclera non-icteric. NECK: Supple. No nuchal rigidity. FROM. No masses. RESPIRATORY: Clear to auscultation. No wheezes. No rales. Normal respiratory effort. CARDIAC: Normal rate. Normal rhythm. No murmurs. No rubs. Extremities warm and well perfused. Pulses equal. No JVD. GI: Soft, non-distended. No tenderness to palpation. No rebound or guarding. No masses. RECTAL: Deferred. MUSCULOSKELETAL: Atraumatic. Chest examination reveals no tenderness. The back is symmetrical on inspection without obvious abnormality. There is no CVA tenderness to palpation. No joint edema. LOWER EXTREMITIES: Calves are equal size bilaterally and non-tender. Trace lower extremity edema. No discoloration. NEURO: Normal sensorium. No sensory or motor deficits noted. SKIN: No rash or jaundice noted. Medical Decision & Procedures ER Provider Diagnostic Interpretation: Radiology results as stated below per my review and radiologist interpretation: CHEST ONE VIEW PORTABLE CLINICAL HISTORY: EVALUATE GI BLEED COMPARISON STUDY: 10/22/2017 FINDINGS: Chronic pleural reactive changes left base. Small fixed lateral hernia. Postoperative changes overlying left hilum. No acute abnormality. IMPRESSION: Chronic and postoperative change. No acute process. The above report was generated using voice recognition software. It may contain grammatical, syntax or spelling errors. Electronically signed by: Jayson Eden M.D. 07/05/2018 11:56 AM Dictated Date/Time: 07/05/2018 11:56 AM Laboratory Results 07/05/18 11:48 Red Blood Count 2.85, Mean Corpuscular Volume 93.3, Mean Corpuscular Hemoglobin 30.9, Mean Corpuscular Hemoglobin Concent 33.1, Mean Platelet Volume 9.3, Neutrophils (%) (Auto) 72.2, Lymphocytes (%) (Auto) 15.9, Monocytes (%) (Auto) 7.9, Eosinophils (%) (Auto) 2.7, Basophils (%) (Auto) 0.3, Neutrophils # (Auto) 4.50, Lymphocytes # (Auto) 0.99, Monocytes # (Auto) 0.49, Eosinophils # (Auto) 0.17, Basophils # (Auto) 0.02 07/05/18 11:48 Test 07/05/18 11:48 07/05/18 12:40 White Blood Count 6.23 K/uL (4.8-10.8) Red Blood Count 2.85 M/uL (4.7-6.1) Hemoglobin 8.8 g/dL (14.0-18.0) Hematocrit 26.6 % (42-52) Mean Corpuscular Volume 93.3 fL (80-100) Mean Corpuscular Hemoglobin 30.9 pg (25-34) Mean Corpuscular Hemoglobin Concent 33.1 g/dl (32-36) Platelet Count 164 K/uL (130-400) Mean Platelet Volume 9.3 fL (7.4-10.4) Neutrophils (%) (Auto) 72.2 % Lymphocytes (%) (Auto) 15.9 % Monocytes (%) (Auto) 7.9 % Eosinophils (%) (Auto) 2.7 % Basophils (%) (Auto) 0.3 % Neutrophils # (Auto) 4.50 K/uL (1.4-6.5) Lymphocytes # (Auto) 0.99 K/uL (1.2-3.4) Monocytes # (Auto) 0.49 K/uL (0.11-0.59) Eosinophils # (Auto) 0.17 K/uL (0-0.5) Basophils # (Auto) 0.02 K/uL (0-0.2) RDW Standard Deviation 50.4 fL (36.4-46.3) RDW Coefficient of Variation 15.0 % (11.5-14.5) Immature Granulocyte % (Auto) 1.0 % Immature Granulocyte # (Auto) 0.06 K/uL (0.00-0.02) Red Blood Cell Morphology Unremarkable Prothrombin Time 10.3 SECONDS (9.0-12.0) Prothromb Time International Ratio 1.0 (0.9-1.1) Activated Partial Thromboplast Time 21.7 SECONDS (21.0-31.0) Partial Thromboplastin Ratio 0.8 Anion Gap 8.0 mmol/L (3-11) Est Creatinine Clear Calc Drug Dose 34.1 ml/min Estimated GFR () 37.3 Estimated GFR (Non- 32.2 BUN/Creatinine Ratio 19.8 (10-20) Calcium Level 8.7 mg/dl (8.5-10.1) Total Bilirubin 0.4 mg/dl (0.2-1) Direct Bilirubin 0.1 mg/dl (0-0.2) Aspartate Amino Transf (AST/SGOT) 11 U/L (15-37) Alanine Aminotransferase (ALT/SGPT) 14 U/L (12-78) Alkaline Phosphatase 58 U/L (45-117) Troponin I 0.100 ng/ml (0-0.045) Total Protein 6.8 gm/dl (6.4-8.2) Albumin 3.0 gm/dl (3.4-5.0) Lipase 201 U/L (73-393) Urine Color YELLOW Urine Appearance CLEAR (CLEAR) Urine pH 5.0 (4.5-7.5) Urine Specific [place] 1.023 (1.000-1.030) Urine Protein NEG (NEG) Urine Glucose (UA) NEG (NEG) Urine Ketones NEG (NEG) Urine Occult Blood NEG (NEG) Urine Nitrite NEG (NEG) Urine Bilirubin NEG (NEG) Urine Urobilinogen NEG (NEG) Urine Leukocyte Esterase NEG (NEG) Laboratory results reviewed by me Medications Administered Medications (Trade) Dose Ordered Sig/Salome Route Start Time Stop Time Status Last Admin Dose Admin Ondansetron HCl (Zofran Inj) 4 mg NOW STAT IV 07/05/18 12:44 07/05/18 12:46 DC 07/05/18 12:49 4 MG Pantoprazole Sodium 80 mg/ Dextrose 120 ml @ 480 mls/hr 1315 IV 07/05/18 13:15 07/05/18 13:29 DC 07/05/18 13:30 480 MLS/HR ECG Per My Interpretation Indication: other (near syncope) Rate (beats per minute): 69 Rhythm: normal sinus Findings: other (left ventricular hypertrophy, no ST elevation, no ST depression ) ED Course 1150: The patient was evaluated in room A3. A complete history and physical exam was performed. 1237: Ordered Pantoprazole Sodium 1 ea IV. 1242: Upon reexamination, the patient was resting. I discussed the test results and treatment plan with him. The patient will be evaluated for further management by Alicia PEOPLES. 1244: Ordered Zofran Inj 4 mg IV. Medical Decision Prior records/ancillary studies reviewed. Triage Nursing notes reviewed and agree them. Additional history obtained from the family. The patient's history was concerning for possible gastrointestinal bleeding as well as near syncope. Differential diagnosis: Etiologies such as peptic ulcer disease, variceal bleed, gastritis, diverticulosis, AVM, coagulopathy, colitis, inflammatory bowel disease, malignancy,Katelyn-Molina tear, esophagitis, as well as others were entertained. Physical exam: As above. ER treatment provided: IV Zofran IV Protonix bolus and drip On reassessment the patient felt better. Diagnostics interpreted by me: ECG: No acute ischemia The labs revealed a moderate anemia on CBC with a hemoglobin of 8.8. Chemistry panel revealed a mild elevation of creatinine 1.93. The patient's troponin was mildly elevated as well. Imaging studies: Chest x-ray as above The patient has a history of a GI bleed without obvious source over a month ago. Family notes that he is set up for a scope because of this dark stools for the last 5-6 days. He has a moderate anemia on his CBC. He experienced near syncope today. Further management in the hospital will be necessary. Consultation: A consultation was placed with the hospitalist. The case was discussed and diagnostics were reviewed. The patient was evaluated in the ER for further treatment. Medication Reconcilliation Current Medication List: was personally reviewed by me Blood Pressure Screening Patient's blood pressure: Normal blood pressure Consults Time Called: 1235 Consulting Physician: Alicia Man Returned Call: [phone] Discussed the patient's case. The patient will be evaluated for further treatment and disposition. Impression Primary Impression: Near syncope Additional Impressions: GI bleed Elevated troponin Scribe Attestation The scribe's documentation has been prepared under my direction and personally reviewed by me in its entirety. I confirm that the note above accurately reflects all work, treatment, procedures, and medical decision making performed by me. Departure Information Dispostion Being Evaluated By Hospitalist Referrals Lexis Jasso M.D. (PCP) Problem Qualifiers
[2018-07-05] MEDS: SODIUM CHLORIDE 0.9% 1000ML 1,000 ML IV SCH (14:38)
--- NOTE | 2018-07-05 16:13 | History and Physical ---
History & Physical Date & Time of Service: Jul 05, 2018 ~ 1245 Chief Complaint: Near syncope Primary Care Physician: Lexis aJsso M.D. History of Present Illness 78-year-old male who presents the ED after a near syncopal event today. Over the past few months, patient was having dark stools suspicious for a GI bleed. Approximately 6 weeks ago patient underwent EGD and colonoscopy at [facility] which per patient's report was unremarkable. Patient reports that the bleeding has since stopped until 1 week ago and he has been having black stools again. Patient was seen by his PCP last week and is scheduled for an EGD in 2 days as an outpatient. Today while sitting at buddhist, patient reports he felt very flushed, lightheaded, nauseated. Patient was lowered to the ground with some help and EMS was called. He also had some midsternal chest tightness with this episode. Patient reports he has been experiencing this for the past several months. Patient underwent cardiac catheterization at [facility] on 06/08/18 that showed moderate to severe 2 vessel occlusive coronary disease however given patient's anatomy medical management was advised. Patient reports that this chest tightness will come on after eating. He reports that he can take 2 Tums and the discomfort will resolve. No shortness of breath. He denies abdominal pain, vomiting, and diarrhea. No other recent illnesses, fevers, chills. He denies any urinary symptoms. In the ED, patient's hemoglobin is 8.8 and troponin is mildly elevated at 0.100. EKG shows new T-wave inversions inferiorly. Patient is hemodynamically stable. He was given a Protonix bolus and started on a drip and also given IV Zofran. Past Medical/Surgical History Medical Problems: (1) BPH (benign prostatic hyperplasia) Status: Chronic (2) CAD (coronary atherosclerotic disease) Permanent Comment: S/P LAD stent Status: Chronic (3) Gout Status: Chronic (4) HTN (hypertension) Status: Chronic (5) Lung cancer Status: Chronic Surgical Problems: (1) H/O aortic aneurysm repair Status: Chronic (2) History of left-sided carotid endarterectomy Status: Chronic (3) Lung cancer Status: Resolved (4) S/P AAA repair Status: Chronic (5) S/P lobectomy of lung Status: Chronic (6) S/P partial lobectomy of lung Status: Resolved Family History Noncontributory secondary to patient's advanced age Social History Smoking Status: Former Smoker Alcohol Use: none Housing status: lives alone Allergies Coded Allergies: Penicillins (Verified Allergy, Unknown, UNKNOWN, 07/05/18) Home Medications Scheduled Allopurinol (Zyloprim), 100 MG PO MWF Aspirin (Aspirin EC Low Dose), 81 MG PO DAILY Cholecalciferol (Vitamin D), 1 TAB PO DAILY Dutasteride (Avodart), 0.5 MG PO DAILY Fluticasone Propionate (Nasal) (Flonase Allergy Relief), 2 SPRAY MARIA ESTHER HS Isosorbide Mononitrate (Isosorbide Mononitrate), 20 MG PO QAM Loratadine (Claritin), 10 MG PO DAILY Metoprolol Succinate (Toprol Xl), 50 MG PO BID Montelukast Sodium (Singulair), 10 MG PO DAILY Nitroglycerin (Nitrostat), 0.4 MG UT PRN Pantoprazole (Protonix), 1 TAB PO BID Ranitidine (Zantac), 150 MG PO DAILY Simvastatin (Zocor), 10 MG PO QPM Tamsulosin Hcl (Flomax), 0.4 MG PO DAILY Review of Systems ROS per HPI, all other systems reviewed and negative Physical Exam Vital Signs Date Time Temp Pulse Resp B/P (MAP) Pulse Ox O2 Delivery O2 Flow Rate FiO2 07/05/18 14:14 36.5 70 20 138/78 (98) 96 Room Air 07/05/18 13:34 68 18 108/65 96 Room Air 07/05/18 13:20 96 Room Air 07/05/18 12:31 65 18 108/65 99 Room Air 07/05/18 11:48 70 07/05/18 11:38 37.0 62 18 114/67 96 Room Air 07/05/18 11:38 94 Room Air General Appearance: WD/WN, no apparent distress Head: normocephalic, atraumatic Eyes: normal inspection, EOMI, sclerae normal ENT: hearing grossly normal, + pertinent finding (Mucous membranes moist) Neck: supple, no JVD, trachea midline Respiratory/Chest: lungs clear, normal breath sounds, no respiratory distress Cardiovascular: regular rate, rhythm, normal peripheral pulses, + pertinent finding (Trace edema BLE) Abdomen/GI: normal bowel sounds, non tender, soft, no organomegaly Extremities/Musculoskelatal: normal inspection, no calf tenderness, normal capillary refill Neurologic/Psych: no motor/sensory deficits, alert, normal mood/affect, oriented x 3 Skin: normal color, warm/dry Diagnostics Laboratory Results Results Past 24 Hours Test 07/05/18 11:48 07/05/18 12:40 Range/Units White Blood Count 6.23 4.8-10.8 K/uL Red Blood Count 2.85 4.7-6.1 M/uL Hemoglobin 8.8 14.0-18.0 g/dL Hematocrit 26.6 42-52 % Mean Corpuscular Volume 93.3 80-100 fL Mean Corpuscular Hemoglobin 30.9 25-34 pg Mean Corpuscular Hemoglobin Concent 33.1 32-36 g/dl Platelet Count 164 130-400 K/uL Mean Platelet Volume 9.3 7.4-10.4 fL Neutrophils (%) (Auto) 72.2 % Lymphocytes (%) (Auto) 15.9 % Monocytes (%) (Auto) 7.9 % Eosinophils (%) (Auto) 2.7 % Basophils (%) (Auto) 0.3 % Neutrophils # (Auto) 4.50 1.4-6.5 K/uL Lymphocytes # (Auto) 0.99 1.2-3.4 K/uL Monocytes # (Auto) 0.49 0.11-0.59 K/uL Eosinophils # (Auto) 0.17 0-0.5 K/uL Basophils # (Auto) 0.02 0-0.2 K/uL RDW Standard Deviation 50.4 36.4-46.3 fL RDW Coefficient of Variation 15.0 11.5-14.5 % Immature Granulocyte % (Auto) 1.0 % Immature Granulocyte # (Auto) 0.06 0.00-0.02 K/uL Red Blood Cell Morphology Unremarkable Prothrombin Time 10.3 9.0-12.0 SECONDS Prothromb Time International Ratio 1.0 0.9-1.1 Activated Partial Thromboplast Time 21.7 21.0-31.0 SECONDS Partial Thromboplastin Ratio 0.8 Sodium Level 140 136-145 mmol/L Potassium Level 4.0 3.5-5.1 mmol/L Chloride Level 108 98-107 mmol/L Carbon Dioxide Level 24 21-32 mmol/L Anion Gap 8.0 3-11 mmol/L Blood Urea Nitrogen 38 7-18 mg/dl Creatinine 1.93 0.60-1.40 mg/dl Est Creatinine Clear Calc Drug Dose 34.1 ml/min Estimated GFR () 37.3 Estimated GFR (Non- 32.2 BUN/Creatinine Ratio 19.8 10-20 Random Glucose 124 70-99 mg/dl Calcium Level 8.7 8.5-10.1 mg/dl Total Bilirubin 0.4 0.2-1 mg/dl Direct Bilirubin 0.1 0-0.2 mg/dl Aspartate Amino Transf (AST/SGOT) 11 15-37 U/L Alanine Aminotransferase (ALT/SGPT) 14 12-78 U/L Alkaline Phosphatase 58 45-117 U/L Troponin I 0.100 0-0.045 ng/ml Total Protein 6.8 6.4-8.2 gm/dl Albumin 3.0 3.4-5.0 gm/dl Lipase 201 73-393 U/L Urine Color YELLOW Urine Appearance CLEAR CLEAR Urine pH 5.0 4.5-7.5 Urine Specific [place] 1.023 1.000-1.030 Urine Protein NEG NEG Urine Glucose (UA) NEG NEG Urine Ketones NEG NEG Urine Occult Blood NEG NEG Urine Nitrite NEG NEG Urine Bilirubin NEG NEG Urine Urobilinogen NEG NEG Urine Leukocyte Esterase NEG NEG Diagnostic Radiology CXR IMPRESSION: Chronic and postoperative change. No acute process. Impression Assessment and Plan NEAR SYNCOPE GI BLEED, LIKELY UPPER -Admit to telemetry -Patient presenting after experiencing a near syncopal episode while seated at buddhist; has been having dark stools for the past 1 week -Had EGD and colonoscopy at [facility] approximately 6 weeks ago - normal per patient report; official reports requested -In the ED, hemoglobin 8.8; unsure of recent baseline, records requested; hemoglobin 13.1 10/2017 -Continue to monitor serial H&H -Patient self stopped his baby aspirin about 1 week ago -S/P Protonix bolus and drip in the ED, will continue with Protonix 40 mg IV twice daily -Clear liquids, n.p.o. after midnight -GI consult, case discussed with Dr. Lakhani -Near syncopal event likely secondary to hypovolemia from GI bleed however also consider cardiac source which will be discussed below HISTORY OF CAD, ELEVATED TROPONIN, EKG CHANGES -Patient did report some midsternal chest tightness with his near syncopal event today however reports that this is the same pain he typically gets after eating and will improve with a Tums -Had cardiac catheterization at [facility] 06/08/18 for this chest pain -cath showed moderate to severe 2 vessel occlusive coronary disease however given patient's anatomy, medical management was advised -EKG shows new T-wave inversions inferiorly compared to EKG from [facility] from 06/08/18 -Troponin mildly elevated at 0.100 -possibly demand ischemia from GI bleed however given EKG changes and patient's report of chest pain, need to consider ACS -Unable to use antiplatelets or anticoagulants secondary to GI bleeding -Continue to cycle cardiac enzymes, check resting echocardiogram -Continue beta-jesus and statin -Cardiology consult, case discussed with Dr. Lazaro HYPERTENSION -BP controlled, continue isosorbide, metoprolol BPH -Continue dutasteride and tamsulosin GOUT -Continue allopurinol DVT PROPHYLAXIS -SCDs due to GI bleeding CODE STATUS -Patient is a full code as per my discussion with him. DISPOSITION -In my clinical judgment this beneficiary meets acute admission criteria, established by [facility], that includes being hospitalized through two midnights. Attending Addendum Pt was seen and examined. Agreed with Alicia PEOPLES exam, assessment and plan. 78- year-old male with PMH of CAD, HTN, BPH, Gout presents the ED after a near syncopal event today.Pt said that for the last few months, He has been having dark stools. Approximately 6 weeks ago, he had EGD and colonoscopy at [facility] which seems to be unremarkable as per pt. He said that today at buddhist , he felt very flushed, lightheaded, nauseated. He said that pt at buddhist helped him to lie down on the ground and EMS was called. He said that he has been having intermittent mid sternal chest discomfort that seems to occur after eating and relieves with Tums. Patient underwent cardiac catheterization at [facility] on 06/08/18 that showed moderate to severe 2 vessel occlusive coronary disease however given patient's anatomy medical management was advised. Currently denies any chest pain, palpitation, dizziness and SOB. Hgb on admission was 8.8 and troponin is mildly elevated at 0.100. Already starting on Protonix drip in the ER. Will monitor H/H. Will start on PPI IV BID. Gastro consulted. Will keep NPO after midnight for possible EGD. Follow up troponin. Will consult cardiology for EKG changes. Will monitor closely. Please refer to Alicia Higuera for other problems. MD Angelina Advanced Directives Existing Living Will: No Existing Power of Youth Care Specialist: No Resuscitation Status VTE Prophylaxis Will order VTE Prophylaxis: Yes
[2018-07-05 17:01] LABS: HEMATOCRIT 26.4 % (42-52); HEMOGLOBIN 8.7 g/dL (14.0-18.0)
[2018-07-05 20:42] VITALS: BP 128/75; PULSE 66; TEMP 36.4; O2SAT 97
[2018-07-05] MEDS: SIMVASTATIN 10 MG TAB PO SCH (21:20)
[2018-07-05] MEDS: METOPROLOL SUCC 50MG EXT REL TAB PO SCH (21:20)
[2018-07-05] MEDS: PANTOprazole INJ 40 MG in SYRINGE 0 ML IV SCH (21:21)
[2018-07-05 23:11] LABS: HEMATOCRIT 25.6 % (42-52); HEMOGLOBIN 8.4 g/dL (14.0-18.0)
[2018-07-06] VITALS (9 sets, daily range): BP systolic 122–168; BP diastolic 74–93; PULSE 56–77; TEMP 36.3–37.2; O2SAT 93–99
[2018-07-06] MEDS: SODIUM CHLORIDE 0.9% 1000ML 1,000 ML IV SCH ×2 (03:15→15:39)
[2018-07-06 05:01] LABS: HEMOGLOBIN 8.6 g/dL (14.0-18.0); MEAN CELL VOLUME 93.5 fL (80-100); MEAN CORPUSCULAR HEMOGLOBIN 30.9 pg (25-34); MEAN CORPUSCULAR HGB CONC 33.1 g/dl (32-36); MEAN PLATELET VOLUME 9.4 fL (7.4-10.4); PLATELET COUNT 157 K/uL (130-400); RED CELL DISTRIBUTION WIDTH CV 15.2 % (11.5-14.5); RED CELL DISTRIBUTION WIDTH SD 51.4 fL (36.4-46.3); WHITE BLOOD COUNT 7.18 K/uL (4.8-10.8)
[2018-07-06 05:32] LABS: CALCIUM 8.2 mg/dl (8.5-10.1); CREATININE 1.77 mg/dl (0.60-1.40); POTASSIUM 4.1 mmol/L (3.5-5.1)
[2018-07-06] MEDS ORDERED: PERFLUTREN LIPID MICROSPHERE (DEFINITY) IV ONE (07:59)
[2018-07-06] MEDS: PANTOprazole INJ 40 MG in SYRINGE 0 ML IV SCH ×2 (08:11→21:11)
[2018-07-06] MEDS: ISOSORBIDE MONONITRATE 20 MG TAB PO SCH (08:12)
[2018-07-06] MEDS: CHOLECALCIFEROL 1000 INTER.UNIT TAB PO SCH (08:12)
[2018-07-06] MEDS: LORATADINE 10 MG TAB PO SCH (08:12)
[2018-07-06] MEDS: METOPROLOL SUCC 50MG EXT REL TAB PO SCH ×2 (08:13→21:12)
[2018-07-06] MEDS: RANITIDINE HCL 150 MG TAB PO SCH (08:13)
[2018-07-06] MEDS ORDERED: ALLOPURINOL 100 MG TAB PO SCH (09:00)
--- NOTE | 2018-07-06 10:28 | ECHOCARDIOGRAM REPORT ---
*NOTICE TO RECEIVING [employer] [employer] [facility] This information is strictly Confidential and protected under [place] law. [place] law prohibits you from making any further disclosure of this information unless further disclosure is expressly permitted by the written consent of the person to whom it pertains or is authorized by law. A general authorization for the release of medical or other information is not sufficient for this purpose. Hospital accepts no responsibility if the information is made available to any other person, INCLUDING THE PATIENT. Interpretation Summary * Name: RENE MAK Study Date: 07/06/2018 07:17 AM BP: 122/74 mmHg * Patient Location: [facility]\S\N279\S\1 HR: 71 * : 1940 (M/d/yyyy) Gender: Male Height: 72 in * Age: 78 yrs Ethnicity: [place] Weight: 188 lb * Ordering Physician: Alicia Sotomayor * Performed By: Vanessa Flores RDCS * * Reason For Study: EKG CHANGES * BSA: 2.1 m2 * The study was technically adequate. * There is no comparison study available. * -- Conclusions -- * Ejection Fraction = 60-65%. * There is mild concentric left ventricular hypertrophy. * The left ventricular wall motion is normal. * Aortic valve sclerosis moderate, without significant aortic valvular stenosis. * Trace aortic regurgitation. * There is mild mitral regurgitation. * There is mild tricuspid regurgitation. * The estimated systolic PAP is 40mmHg. Procedure Details * A complete two-dimensional transthoracic echocardiogram was performed (2D, M-mode, Doppler and color flow Doppler). * A contrast injection of Definity was performed to improve assessment of LV function. * Contrast was injected into an intravenous site in the right arm. * One vial of Definity ultrasound contrast was diluted in normal saline to a total volume of 10 ml. A total of '3' ml of solution was administered during imaging. * Lot # [id number] of Definity utilized for procedure. * Expiration date 06/18. * The attending nurse who injected the contrast agent was LILIANA HOWELL RN. Left Ventricle * The left ventricle is normal in size. * There is no thrombus. * There is mild concentric left ventricular hypertrophy. * Ejection Fraction = 60-65%. * Left ventricular systolic function is normal. * The left ventricular wall motion is normal. Right Ventricle * The right ventricle is normal size. * The right ventricular systolic function is normal as assessed by tricuspid annular plane systolic excursion (TAPSE) (normal >1.5 cm). Atria * The left atrium is mildly dilated. * Right atrial size is normal. * There is no evidence of atrial septal defect, but resolution does not allow assessment for a patent foramen ovale. Mitral Valve * The mitral valve is normal. * The mitral valve leaflets appear thickened, but open well. * There is no mitral valve stenosis. * There is mild mitral regurgitation. Tricuspid Valve * The tricuspid valve is normal. * There is no tricuspid stenosis. * There is mild tricuspid regurgitation. * The estimated systolic PAP is 40mmHg. Aortic Valve * The aortic valve is trileaflet. * Aortic valve sclerosis moderate, without significant aortic valvular stenosis. * Aortic stenosis is absent. * Trace aortic regurgitation. Pulmonic Valve * The pulmonary valve is inadequately visualized, but the Doppler data is adequate for interpretation. * There is no pulmonic valvular stenosis. * Mild pulmonic valvular regurgitation. Great Vessels * The aortic root and proximal ascending aorta are normal sized. Pericardium/Pleural * There is no pericardial effusion. Great Vessels * Normal inferior vena cava diameter and respiratory variation suggests normal central venous pressure. Left Ventricular Diastolic Function * Diastolic dysfunction, Grade II (pseudonormalization pattern). MMode 2D Measurements and Calculations IVSd 1.2 cm IVSs 1.6 cm LVIDd 4.6 cm LVIDs 3.1 cm LVPWd 1.2 cm LVPWs 1.4 cm IVS/LVPW 1.1 FS 33.2 % EDV(Teich) 99.1 ml ESV(Teich) 37.8 ml EF(Teich) 61.8 % EDV(cubed) 99.6 ml ESV(cubed) 29.7 ml EF(cubed) 70.2 % % IVS thick 30.7 % % LVPW thick 18.6 % LV mass(C)d 205.3 grams LV mass(C)dI 99.0 grams/m\S\2 LV mass(C)s 162.2 grams LV mass(C)sI 78.2 grams/m\S\2 CO(Teich) 4.4 l/min CI(Teich) 2.1 l/min/m\S\2 SV(Teich) 61.3 ml SI(Teich) 29.5 ml/m\S\2 CO(cubed) 5.0 l/min CI(cubed) 2.4 l/min/m\S\2 SV(cubed) 69.9 ml SI(cubed) 33.7 ml/m\S\2 ACS 0.48 cm asc Aorta Diam 3.1 cm LVOT diam 2.0 cm LVOT area 3.2 cm\S\2 LVAd ap4 30.5 cm\S\2 LVLd ap4 7.7 cm EDV(MOD-sp4) 98.7 ml LVAs ap4 18.6 cm\S\2 LVLs ap4 6.4 cm ESV(MOD-sp4) 43.0 ml EF(MOD-sp4) 56.4 % LVAd ap2 27.9 cm\S\2 LVLd ap2 8.2 cm EDV(MOD-sp2) 79.2 ml LVAs ap2 16.8 cm\S\2 LVLs ap2 6.9 cm ESV(MOD-sp2) 34.5 ml EF(MOD-sp2) 56.4 % CO(MOD-sp4) 4.0 l/min CI(MOD-sp4) 1.9 l/min/m\S\2 SV(MOD-sp4) 55.7 ml SI(MOD-sp4) 26.8 ml/m\S\2 CO(MOD-sp2) 3.2 l/min CI(MOD-sp2) 1.5 l/min/m\S\2 SV(MOD-sp2) 44.7 ml SI(MOD-sp2) 21.5 ml/m\S\2 Doppler Measurements and Calculations MV E max prasanna 108.7 cm/sec MV A max prasanna 78.1 cm/sec MV E/A 1.4 MV dec time 0.23 sec Ao V2 max 168.3 cm/sec Ao max PG 11.3 mmHg Ao max PG (full) 7.1 mmHg PARRISH(V,A) 2.0 cm\S\2 PARRISH(V,D) 2.0 cm\S\2 LV V1 max PG 4.3 mmHg LV V1 max 103.3 cm/sec MR max prasanna 645.8 cm/sec MR max PG 167.0 mmHg PA V2 max 63.1 cm/sec PA max PG 1.6 mmHg PI end-d prasanna 84.8 cm/sec TR max prasanna 297.0 cm/sec
--- NOTE | 2018-07-06 10:31 | Clinical Documentation Query ---
CLINICAL DOCUMENTATION QUERY QUERY 1 OF 2 78 yo male admitted with GI bleed has T wave inversions in the inferior leads and elevated troponin levels of 0.100 peak. Patient's hgb is 8 and patient is SOB. In your clinical opinion is this patient being managed for: ( ) Type 2 WA due to demand ischemia ( ) Not Agree ( ) Other explanation of clinical findings (No explanation is considered a No Response) ( ) Unable to determine ( ) Need to Discuss (Phone CDS or qliq) (No discussion is considered a No Response) The medical record reflects the following clinical findings, treatment, and risk factors. Clinical Indicators: As above Treatment: Serial EKGs, Cardiology consult, serial troponins Risk Factors: Age, GI bleed, acute anemia QUERY 2 OF 2 Patient's GFR ranges 32.2 to 37.5 over past year. In your clinical opinion is this patient being managed for: ( ) Chronic kidney disease, stage 3 ( ) Not Agree ( ) Other explanation of clinical findings (No explanation is considered a No Response) ( ) Unable to determine ( ) Need to Discuss (Phone CDS or qliq) (No discussion is considered a No Response) The medical record reflects the following clinical findings, treatment, and risk factors. Clinical Indicators: As above Treatment: I&O, serial PRPs Risk Factors: Age, HTN, CAD Please clarify and document your clinical opinion in the progress notes and discharge summary. Terms such as "probable", "suspected", "likely", "questionable", "possible", or "still to be ruled out" are acceptable. IF IN AGREEMENT, YOU MUST DOCUMENT ABOVE DIAGNOSTIC STATEMENT IN DAILY PROGRESS NOTES AND DISCHARGE SUMMARY. This document is not part of the patient's record. Thank You, Bren Page RN, MSN [phone]
[2018-07-06] MEDS ORDERED: NURSING VERBAL MED ORDER ONE (10:45)
[2018-07-06 11:04] LABS: HEMATOCRIT 27.6 % (42-52)
--- NOTE | 2018-07-06 11:09 | Gastrointestinal Consultation ---
Gastrointestinal Consultation Date of Consultation: Jul 06, 2018 Attending Physician: Magda Alfaro Consulting Physician: Talha Moreno Reason for Consultation: GI Bleed History of Present Illness Patient is a 78 year old male seen for suspected GI bleed. 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 Was then brought to ED for evaluation. He was found to be anemic w Hgb of high 8s (baseline 13). He admits to also be having dark stools but solid for last 6 weeks. He mentioned that he gets SOB and chest pain when he's walking, also when he tries to lay down in bed. Sometimes have reflux symptoms, been using TUMs on top of his Zantac at home. 6 weeks ago had EGD/Colonoscopy (we do not have records) at [facility] to r/o GI source of chest pain and also was due for screening colonoscopy. He was told everything looks fine. Of note, admission H&P not mentioned that he had previous cardiac cath in [facility] which showed 2 vessel occlusive CAD. On presentation his Troponin is up at 0.1, and his EKG had new Twave inversions inferiorly. Overnight he had been made NPO. Currently on PPI IV BID, and Ranitidine 150mg BID. His blood ct remained stable at 8. He hasn't had any more chest pain or SOB but also said hasn't been moving around much. He denies any NSAIDs uses. Was on ASA up till 6 weeks ago per his report. Past Medical/Surgical History Medical Problems: (1) Anemia Status: Acute (2) Elevated serum creatinine Status: Acute (3) Expressive aphasia Status: Acute (4) TIA (transient ischemic attack) Status: Acute Past Medical History: See HPI above Past Surgical History: L lobe lung ca resection. Family History Patient reports no known family medical history. 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 ) Allergies Coded Allergies: Penicillins (Verified Allergy, Unknown, UNKNOWN, 07/05/18) Current Medications Home Meds and Scripts Medications Dose Route/Sig Max Daily Dose Days Date Category Dose Instructions Flonase Allergy Relief (Fluticasone Propionate (Nasal)) 50 Mcg/Act Spr 2 [place] MARIA ESTHER HS 07/05/18 Reported Nitrostat (Nitroglycerin) 0.4 Mg Tab 0.4 Mg UT PRN 07/05/18 Reported Aspirin EC Low Dose (Aspirin) 81 Mg Ectab 81 Mg PO DAILY 07/05/18 Reported patient self stopped 1 week ago Zyloprim (Allopurinol) 100 Mg Tab 100 Mg PO MWF 07/05/18 Reported Isosorbide Mononitrate 20 Mg Tab 20 Mg PO QAM 07/05/18 Reported Toprol Xl (Metoprolol Succinate) 50 Mg Tabcr 50 Mg PO BID 07/05/18 Reported Vitamin D (Cholecalciferol) 2,000 Unit Tab 1 Tab PO DAILY 10/22/17 Reported Claritin (Loratadine) 10 Mg Tab 10 Mg PO DAILY 10/22/17 Reported Protonix (Pantoprazole Sodium) 20 Mg Tab 20 Mg PO BID 10/22/17 Reported Singulair (Montelukast Sodium) 10 Mg Tab 10 Mg PO DAILY 10/22/17 Reported Flomax (Tamsulosin Hcl) 0.4 Mg Cap 0.4 Mg PO DAILY 10/22/17 Reported Zantac (Ranitidine HCl) 150 Mg Tab 150 Mg PO DAILY 10/22/17 Reported Zocor (Simvastatin) 10 Mg Tab 10 Mg PO QPM 10/22/17 Reported Avodart (Dutasteride) 0.5 Mg Cap 0.5 Mg PO DAILY 10/22/17 Reported Review of Systems Constitutional: No fever, No chills Respiratory: + shortness of breath, + dyspnea on exertion, No cough Cardiac: + chest pain (on exertion) Abdomen: + see HPI, No pain, No nausea, No vomiting Physical Exam Date Time Temp Pulse Resp B/P (MAP) Pulse Ox O2 Delivery O2 Flow Rate FiO2 07/06/18 08:10 71 161/84 (109) 07/06/18 08:00 Room Air 07/06/18 07:23 36.6 70 18 159/87 (111) 95 Room Air 07/06/18 04:46 37.2 71 18 122/74 (90) 99 Room Air 07/06/18 00:07 37.2 56 16 149/93 (111) 94 Room Air 07/06/18 00:00 Room Air 07/05/18 20:42 36.4 66 20 128/75 (92) 97 Room Air 07/05/18 16:00 Room Air 07/05/18 14:14 36.5 70 20 138/78 (98) 96 Room Air 07/05/18 13:34 68 18 108/65 96 Room Air 07/05/18 13:20 96 Room Air 07/05/18 12:31 65 18 108/65 99 Room Air 07/05/18 11:48 70 07/05/18 11:38 37.0 62 18 114/67 96 Room Air 07/05/18 11:38 94 Room Air General Appearance: WD/WN, no apparent distress Eyes: normal inspection, PERRL, EOMI Neck: supple, no JVD, trachea midline Respiratory/Chest: normal breath sounds, no respiratory distress, no accessory muscle use Cardiovascular: regular rate, rhythm, no gallop, no murmur Abdomen: normal bowel sounds, non tender, soft Extremities: normal inspection, no pedal edema, no calf tenderness Neurologic/Psych: alert, normal mood/affect, oriented x 3 Skin: normal color, no jaundice, no rash Laboratory Results Last 24 Hours Test 07/05/18 11:48 07/05/18 12:40 07/05/18 16:51 07/05/18 22:54 White Blood Count 6.23 K/uL Red Blood Count 2.85 M/uL Hemoglobin 8.8 g/dL 8.7 g/dL 8.4 g/dL Hematocrit 26.6 % 26.4 % 25.6 % Mean Corpuscular Volume 93.3 fL Mean Corpuscular Hemoglobin 30.9 pg Mean Corpuscular Hemoglobin Concent 33.1 g/dl Platelet Count 164 K/uL Mean Platelet Volume 9.3 fL Neutrophils (%) (Auto) 72.2 % Lymphocytes (%) (Auto) 15.9 % Monocytes (%) (Auto) 7.9 % Eosinophils (%) (Auto) 2.7 % Basophils (%) (Auto) 0.3 % Neutrophils # (Auto) 4.50 K/uL Lymphocytes # (Auto) 0.99 K/uL Monocytes # (Auto) 0.49 K/uL Eosinophils # (Auto) 0.17 K/uL Basophils # (Auto) 0.02 K/uL RDW Standard Deviation 50.4 fL RDW Coefficient of Variation 15.0 % Immature Granulocyte % (Auto) 1.0 % Immature Granulocyte # (Auto) 0.06 K/uL Red Blood Cell Morphology Unremarkable Prothrombin Time 10.3 SECONDS Prothromb Time International Ratio 1.0 Activated Partial Thromboplast Time 21.7 SECONDS Partial Thromboplastin Ratio 0.8 Sodium Level 140 mmol/L Potassium Level 4.0 mmol/L Chloride Level 108 mmol/L Carbon Dioxide Level 24 mmol/L Anion Gap 8.0 mmol/L Blood Urea Nitrogen 38 mg/dl Creatinine 1.93 mg/dl Est Creatinine Clear Calc Drug Dose 34.1 ml/min Estimated GFR () 37.3 Estimated GFR (Non- 32.2 BUN/Creatinine Ratio 19.8 Random Glucose 124 mg/dl Calcium Level 8.7 mg/dl Total Bilirubin 0.4 mg/dl Direct Bilirubin 0.1 mg/dl Aspartate Amino Transf (AST/SGOT) 11 U/L Alanine Aminotransferase (ALT/SGPT) 14 U/L Alkaline Phosphatase 58 U/L Troponin I 0.100 ng/ml 0.093 ng/ml 0.084 ng/ml Total Protein 6.8 gm/dl Albumin 3.0 gm/dl Lipase 201 U/L Urine Color YELLOW Urine Appearance CLEAR Urine pH 5.0 Urine Specific [place] 1.023 Urine Protein NEG Urine Glucose (UA) NEG Urine Ketones NEG Urine Occult Blood NEG Urine Nitrite NEG Urine Bilirubin NEG Urine Urobilinogen NEG Urine Leukocyte Esterase NEG Test 07/06/18 04:48 07/06/18 10:43 White Blood Count 7.18 K/uL Red Blood Count 2.78 M/uL Hemoglobin 8.6 g/dL Hematocrit 26.0 % Mean Corpuscular Volume 93.5 fL Mean Corpuscular Hemoglobin 30.9 pg Mean Corpuscular Hemoglobin Concent 33.1 g/dl RDW Standard Deviation 51.4 fL RDW Coefficient of Variation 15.2 % Platelet Count 157 K/uL Mean Platelet Volume 9.4 fL Sodium Level 141 mmol/L Potassium Level 4.1 mmol/L Chloride Level 111 mmol/L Carbon Dioxide Level 25 mmol/L Anion Gap 5.0 mmol/L Blood Urea Nitrogen 29 mg/dl Creatinine 1.77 mg/dl Est Creatinine Clear Calc Drug Dose 37.2 ml/min Estimated GFR () 41.4 Estimated GFR (Non- 35.7 BUN/Creatinine Ratio 16.1 Random Glucose 93 mg/dl Calcium Level 8.2 mg/dl Impression Patient is a 78 year old male presented w presyncopal episode (he suspects from being too hot under 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 He had been having exertional CP, SOB and orthopnea symptoms for weeks. Hx of CAD as noted on admission HPI, new Twave inversion on inferior lead EKG, and Troponin elevated. He is anemic and also noted dark solids stools for weeks now. He had previous EGD/Colonoscopy 6 weeks ago at [facility] which he said was normal. Plan - Obtain endoscopy records from [facility] - OK to continue on Protonix 40mg IV BID and Zantac 150mg BID for now. - Monitor H/H and transfuse prn - Cardiology consulted, awaiting recs and clearance should he needs a repeat endoscopic evaluation. Attending attestation I have seen, examined this patient, and agree with the findings and above by our mid-level provider Titi Acevedo. -Chronic intermittent Melena -recent EGD/Colon. Now with what appears to be a pre-syncopal event possibly from vagal. -Recent heart cath without intervention -Hb stable-Discussed case with Cardiology-will plan on EGD/enteroscopy today to ensure no signs of active bleeding
--- NOTE | 2018-07-06 11:19 | Cardiology Consultation ---
Cardiology Consultation Date of Consultation: Jul 06, 2018 Requesting Physician: Dr. abdalla Attending Security Systems Installer: Dr. Lazaro History of Present Illness Patient is a 78 year old male presents to the emergency department with a syncopal episode. 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 After services completed he was changing clothes. Noted feeling extremely warm then flushed. He became lightheaded and lost consciousness. There was a fall with no reported injury. Patient denies any chest discomfort currently, however, apparently reported some chest heaviness to EMS. He denies any chest discomfort at this time. Notes feeling nauseated en route to the hospital. Reports recent cardiac catheterization performed in [place] after abnormal stress testing and reports of exertional angina. I do not have results of that procedure, however, patient (and family) describe a chronic total occlusion. 2 stents previously paced several years ago. Patient is unclear regarding details. Prescribe long-acting nitrates. His anginal pattern has not changed. Chronic dyspnea on exertion is stable which he attributes to prior lobectomy. Denies orthopnea, PND, or lower extremity edema. Reports dark tarry stools over the past week. Anemia noted on admission as well as acute renal insufficiency suggesting dehydration. ECG performed on admission demonstrates sinus rhythm with inferior T-wave abnormality which is not significantly changed compared to an ECG dated June 04, 2018. Family is present at bedside. Past Medical/Surgical History Problem List: Medical Problems: (1) BPH (benign prostatic hyperplasia) (2) CAD (coronary atherosclerotic disease) (3) Gout (4) HTN (hypertension) (5) Lung cancer Surgical Problems: (1) H/O aortic aneurysm repair (2) History of left-sided carotid endarterectomy (3) Lung cancer (4) S/P AAA repair (5) S/P lobectomy of lung (6) S/P partial lobectomy of lung Family History Patient reports no known family medical history. Father with myocardial infarction at age 57. 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 Head: The patient denies headache and prior head trauma. Cardiovascular: The patient denies chest pain or chest discomfort, dyspnea on exertion, palpitations, PND, orthopnea, edema, spontaneous shortness of breath, syncope and near syncope. Pulmonary: The patient denies cough, wheeze, pleurisy, hemoptysis, sputum, and excessive snoring. Gastrointestinal: The patient denies nausea, vomiting, diarrhea, constipation, bloating, hematemesis, hematochezia, and abdominal pain. Skin: The patient denies diaphoresis and rash. Musculoskeletal: The patient denies joint pain, joint swelling, myalgia, back pain, neck pain and prior injuries. Neurological: The patient denies prior stroke and seizures Allergies Coded Allergies: Penicillins (Verified Allergy, Unknown, UNKNOWN, 07/05/18) Medications Reported Home Medications Medications Dose Route/Sig Max Daily Dose Days Date Category Dose Instructions Flonase Allergy Relief (Fluticasone Propionate (Nasal)) 50 Mcg/Act Spr 2 [place] MARIA ESTHER HS 07/05/18 Reported Nitrostat (Nitroglycerin) 0.4 Mg Tab 0.4 Mg UT PRN 07/05/18 Reported Aspirin EC Low Dose (Aspirin) 81 Mg Ectab 81 Mg PO DAILY 07/05/18 Reported patient self stopped 1 week ago Zyloprim (Allopurinol) 100 Mg Tab 100 Mg PO MWF 07/05/18 Reported Isosorbide Mononitrate 20 Mg Tab 20 Mg PO QAM 07/05/18 Reported Toprol Xl (Metoprolol Succinate) 50 Mg Tabcr 50 Mg PO BID 07/05/18 Reported Vitamin D (Cholecalciferol) 2,000 Unit Tab 1 Tab PO DAILY 10/22/17 Reported Claritin (Loratadine) 10 Mg Tab 10 Mg PO DAILY 10/22/17 Reported Protonix (Pantoprazole Sodium) 20 Mg Tab 20 Mg PO BID 10/22/17 Reported Singulair (Montelukast Sodium) 10 Mg Tab 10 Mg PO DAILY 10/22/17 Reported Flomax (Tamsulosin Hcl) 0.4 Mg Cap 0.4 Mg PO DAILY 10/22/17 Reported Zantac (Ranitidine HCl) 150 Mg Tab 150 Mg PO DAILY 10/22/17 Reported Zocor (Simvastatin) 10 Mg Tab 10 Mg PO QPM 10/22/17 Reported Avodart (Dutasteride) 0.5 Mg Cap 0.5 Mg PO DAILY 10/22/17 Reported Physical Exam Vital Signs (Last 8hrs): Last 8 Hrs Date Time Temp Pulse Resp B/P (MAP) Pulse Ox O2 Delivery O2 Flow Rate FiO2 07/06/18 08:10 71 161/84 (109) 07/06/18 08:00 Room Air 07/06/18 07:23 36.6 70 18 159/87 (111) 95 Room Air 07/06/18 04:46 37.2 71 18 122/74 (90) 99 Room Air General Appearance: Alert and Oriented x3. NAD. Head: Normocephalic Atraumatic. Eyes: PERRLA, EOMI, conjunctiva and sclera clear Neck: Supple. No carotid bruits noted. No JVD. No HJD. Respiratory: Breath sounds clear to auscultation bilaterally. No w/r/r. Cardiovascular: Reg rate and rhythm. S1 and S2 noted. Soft, 1/6 systolic ejection murmur heard best at the right second intercostal space. No rubs, gallops. PMI non displace. Abdomen: Normal bowel sounds, soft nontender. no abdominal bruits. Extremities: No edema, no clubbing or cyanosis. distal pulses 2/4 bilaterally. Neuro: No focal deficits. Psychiatric: Normal affect. Data Last 24 Hours Test 07/05/18 11:48 07/05/18 12:40 07/05/18 16:51 07/05/18 22:54 White Blood Count 6.23 K/uL Red Blood Count 2.85 M/uL Hemoglobin 8.8 g/dL 8.7 g/dL 8.4 g/dL Hematocrit 26.6 % 26.4 % 25.6 % Mean Corpuscular Volume 93.3 fL Mean Corpuscular Hemoglobin 30.9 pg Mean Corpuscular Hemoglobin Concent 33.1 g/dl Platelet Count 164 K/uL Mean Platelet Volume 9.3 fL Neutrophils (%) (Auto) 72.2 % Lymphocytes (%) (Auto) 15.9 % Monocytes (%) (Auto) 7.9 % Eosinophils (%) (Auto) 2.7 % Basophils (%) (Auto) 0.3 % Neutrophils # (Auto) 4.50 K/uL Lymphocytes # (Auto) 0.99 K/uL Monocytes # (Auto) 0.49 K/uL Eosinophils # (Auto) 0.17 K/uL Basophils # (Auto) 0.02 K/uL RDW Standard Deviation 50.4 fL RDW Coefficient of Variation 15.0 % Immature Granulocyte % (Auto) 1.0 % Immature Granulocyte # (Auto) 0.06 K/uL Red Blood Cell Morphology Unremarkable Prothrombin Time 10.3 SECONDS Prothromb Time International Ratio 1.0 Activated Partial Thromboplast Time 21.7 SECONDS Partial Thromboplastin Ratio 0.8 Sodium Level 140 mmol/L Potassium Level 4.0 mmol/L Chloride Level 108 mmol/L Carbon Dioxide Level 24 mmol/L Anion Gap 8.0 mmol/L Blood Urea Nitrogen 38 mg/dl Creatinine 1.93 mg/dl Est Creatinine Clear Calc Drug Dose 34.1 ml/min Estimated GFR () 37.3 Estimated GFR (Non- 32.2 BUN/Creatinine Ratio 19.8 Random Glucose 124 mg/dl Calcium Level 8.7 mg/dl Total Bilirubin 0.4 mg/dl Direct Bilirubin 0.1 mg/dl Aspartate Amino Transf (AST/SGOT) 11 U/L Alanine Aminotransferase (ALT/SGPT) 14 U/L Alkaline Phosphatase 58 U/L Troponin I 0.100 ng/ml 0.093 ng/ml 0.084 ng/ml Total Protein 6.8 gm/dl Albumin 3.0 gm/dl Lipase 201 U/L Urine Color YELLOW Urine Appearance CLEAR Urine pH 5.0 Urine Specific [place] 1.023 Urine Protein NEG Urine Glucose (UA) NEG Urine Ketones NEG Urine Occult Blood NEG Urine Nitrite NEG Urine Bilirubin NEG Urine Urobilinogen NEG Urine Leukocyte Esterase NEG Test 07/06/18 04:48 07/06/18 10:43 White Blood Count 7.18 K/uL Red Blood Count 2.78 M/uL Hemoglobin 8.6 g/dL 9.0 g/dL Hematocrit 26.0 % 27.6 % Mean Corpuscular Volume 93.5 fL Mean Corpuscular Hemoglobin 30.9 pg Mean Corpuscular Hemoglobin Concent 33.1 g/dl RDW Standard Deviation 51.4 fL RDW Coefficient of Variation 15.2 % Platelet Count 157 K/uL Mean Platelet Volume 9.4 fL Sodium Level 141 mmol/L Potassium Level 4.1 mmol/L Chloride Level 111 mmol/L Carbon Dioxide Level 25 mmol/L Anion Gap 5.0 mmol/L Blood Urea Nitrogen 29 mg/dl Creatinine 1.77 mg/dl Est Creatinine Clear Calc Drug Dose 37.2 ml/min Estimated GFR () 41.4 Estimated GFR (Non- 35.7 BUN/Creatinine Ratio 16.1 Random Glucose 93 mg/dl Calcium Level 8.2 mg/dl Imaging: Chest x-ray without evidence of CHF. EKG: Sinus rhythm with inferior T-wave abnormality Telemetry reviewed: Sinus rhythm with occasional premature ventricular complexes Assessment & Plan Final impression: 1. 78-year-old patient with history of coronary disease, prior LAD stenting, recent cardiac catheterization demonstrating chronic total occlusion (report requested via medical records) without intervention presents with syncopal episode which is most likely vasovagal in origin in the setting of anemia, dehydration, excessive heat. 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 Unlikely plaque rupture event given stable ECG and echocardiogram. No intervention recommended per recent catheterization. 2. Chronic coronary disease with chronic class II-III angina 3. Peripheral vascular disease with history of prior carotid endarterectomy and abdominal aortic aneurysm repair 4. Acute renal insufficiency secondary to volume depletion 5. Anemia secondary to GI blood loss Plan / Recommendations: Records requested from [facility] regarding recent cardiac catheterization. It appears the patient's anginal pattern is stable/unchanged. Patient has not used any sublingual nitroglycerin recently. ECG reviewed which appears to be chronic in nature and not significantly changed when compared to prior ECG from June 04, 2018. Resting 2D transthoracic echocardiogram demonstrates normal wall motion. No overt contraindication to EGD, however, patient is considered moderate perioperative cardiovascular risk due to chronic stable angina, and peripheral vascular disease as noted above. No further cardiac testing would lower patient's perioperative risk at this time. Restart aspirin when cleared by gastroenterology. Continue telemetry monitoring during hospitalization. Thank you for allowing me to participate in the care of your patient.
--- NOTE | 2018-07-06 13:48 | Progress Note ---
Medicine Progress Note Date & Time of Visit: Jul 06, 2018 at 13:04. Subjective Pt was seen and examined Sitting in chair with no distress Pt said that he has not had any chest pain since admitting He said that he usually has chest pain with exertion He has not had a BM yet Denies any chest pain, palpitation, dizziness and sob Objective Last 8 Hrs Date Time Temp Pulse Resp B/P (MAP) Pulse Ox O2 Delivery O2 Flow Rate FiO2 07/06/18 11:29 36.5 72 18 137/80 (99) 93 07/06/18 08:10 71 161/84 (109) 07/06/18 08:00 Room Air 07/06/18 07:23 36.6 70 18 159/87 (111) 95 Room Air Physical Exam: General- No acute distress Head- atraumatic Eyes- PERRL, EOMI ENT- oropharynx clear Neck- supple, no JVD Lungs- clear to auscultation Heart- regular rhythm Abdomen- normal bowel sounds, Non distended Extremities- no calf tenderness Neuro- alert, oriented x 3; PERRL, EOMI Skin- warm & dry Laboratory Results: Last 24 Hours Test 07/05/18 16:51 07/05/18 22:54 07/06/18 04:48 07/06/18 10:43 Hemoglobin 8.7 g/dL 8.4 g/dL 8.6 g/dL 9.0 g/dL Hematocrit 26.4 % 25.6 % 26.0 % 27.6 % Troponin I 0.093 ng/ml 0.084 ng/ml White Blood Count 7.18 K/uL Red Blood Count 2.78 M/uL Mean Corpuscular Volume 93.5 fL Mean Corpuscular Hemoglobin 30.9 pg Mean Corpuscular Hemoglobin Concent 33.1 g/dl RDW Standard Deviation 51.4 fL RDW Coefficient of Variation 15.2 % Platelet Count 157 K/uL Mean Platelet Volume 9.4 fL Sodium Level 141 mmol/L Potassium Level 4.1 mmol/L Chloride Level 111 mmol/L Carbon Dioxide Level 25 mmol/L Anion Gap 5.0 mmol/L Blood Urea Nitrogen 29 mg/dl Creatinine 1.77 mg/dl Est Creatinine Clear Calc Drug Dose 37.2 ml/min Estimated GFR () 41.4 Estimated GFR (Non- 35.7 BUN/Creatinine Ratio 16.1 Random Glucose 93 mg/dl Calcium Level 8.2 mg/dl Assessment & Plan NEAR SYNCOPE Possible related to GI bleed and hypovolemia No focal deficit on exam Fall precaution Will monitor in tele GI BLEED Had EGD and colonoscopy at [facility] approximately 6 weeks ago Hemoglobin 8.8 on admission Hemoglobin was 13.1 back in 10/2017 Pt already held baby aspirin about 1 week ago On Protonix 40 mg IV twice daily NPO for possible EGD Case discussed with GI and waiting for cardiology clearance for the EGD due to pt cardiac history No contraindication for EGD but patient is considered moderate perioperative cardiovascular risk due to chronic stable angina as per cardiology ELEVATED TROPONIN Due to demand ischemia Troponin on admission elevated, now trending down slowly S/P [facility] Cath showed moderate to severe 2 vessel occlusive coronary disease Due to the anatomical location, medical management was advised Due to GI bleeding, aspirin given and not a candidate to start on anticoagulant Continue beta-jesus and statin Cardiology on board Asymptomatic CKD 3 Stable Monitor creatine HYPERTENSION BP controlled Continue isosorbide, metoprolol BPH Continue dutasteride and tamsulosin GOUT Continue allopurinol DVT PROPHYLAXIS SCDs due to GI bleeding CODE STATUS FULL CODE Current Inpatient Medications: Current Inpatient Medications Medications (Trade) Dose Ordered Sig/Salome Route Start Time Stop Time Status Last Admin Dose Admin Acetaminophen (Tylenol Tab) 650 mg Q4H PRN PO 07/05/18 13:30 08/04/18 13:29 Ondansetron HCl (Zofran Inj) 4 mg Q6H PRN IV 07/05/18 13:30 08/04/18 13:29 Sodium Chloride 1,000 ml @ 80 mls/hr [id number] IV 07/05/18 14:30 08/04/18 14:29 07/06/18 03:15 80 MLS/HR Allopurinol (Zyloprim Tab) 100 mg MoWeFr@0900 PO 07/06/18 09:00 08/05/18 08:59 07/06/18 08:12 100 MG Isosorbide Mononitrate (Ismo Tab) 20 mg QAM PO 07/06/18 09:00 08/05/18 08:59 07/06/18 08:12 20 MG Loratadine (Claritin Tab) 10 mg DAILY PO 07/06/18 09:00 08/05/18 08:59 07/06/18 08:12 10 MG Metoprolol Succinate (Toprol Xl Tab) 50 mg BID PO 07/05/18 21:00 08/04/18 20:59 07/06/18 08:13 50 MG Montelukast Sodium (Singulair Tab) 10 mg QPM PO 07/06/18 21:00 08/05/18 20:59 Ranitidine HCl (zANTac TAB) 150 mg DAILY PO 07/06/18 09:00 08/05/18 08:59 07/06/18 08:13 150 MG Simvastatin (Zocor Tab) 10 mg QPM PO 07/05/18 21:00 08/04/18 20:59 07/05/18 21:20 10 MG Tamsulosin HCl (Flomax Cap) 0.4 mg QPM PO 07/06/18 21:00 08/05/18 20:59 Cholecalciferol (Vitamin D Tab) 2,000 inter.unit DAILY PO 07/06/18 09:00 08/05/18 08:59 07/06/18 08:12 2,000 INTER.UNIT Miscellaneous Information (Order Awaiting Action) 1 ea QS N/A 07/05/18 16:00 08/04/18 15:59 Pantoprazole Sodium 40 mg/ Syringe 10 ml @ 5 mls/min DAILY@ IV 07/05/18 21:00 08/04/18 20:59 07/06/18 08:11 5 MLS/MIN Dutasteride (Avodart) 0.5 mg HS PO 07/06/18 21:00 08/05/18 20:59
[2018-07-06] MEDS ORDERED: TAMSULOSIN HCL 0.4 MG CAP PO SCH (21:00)
[2018-07-06] MEDS ORDERED: DUTASTERIDE 0.5MG PO SCH (21:00)
[2018-07-06] MEDS ORDERED: MONTELUKAST SOD 10 MG TAB PO SCH (21:00)
[2018-07-06] MEDS: SIMVASTATIN 10 MG TAB PO SCH (21:13)
[2018-07-07] VITALS (8 sets, daily range): BP systolic 125–158; BP diastolic 76–90; PULSE 67–73; TEMP 36.4–36.8; O2SAT 94–97
[2018-07-07] MEDS: SODIUM CHLORIDE 0.9% 1000ML 1,000 ML IV SCH (04:08)
[2018-07-07 05:22] LABS: HEMATOCRIT 26.2 % (42-52); HEMOGLOBIN 8.6 g/dL (14.0-18.0); MEAN CELL VOLUME 94.2 fL (80-100); MEAN CORPUSCULAR HEMOGLOBIN 30.9 pg (25-34); MEAN CORPUSCULAR HGB CONC 32.8 g/dl (32-36); MEAN PLATELET VOLUME 9.5 fL (7.4-10.4); PLATELET COUNT 152 K/uL (130-400); RED CELL DISTRIBUTION WIDTH CV 15.1 % (11.5-14.5); RED CELL DISTRIBUTION WIDTH SD 51.7 fL (36.4-46.3); WHITE BLOOD COUNT 5.97 K/uL (4.8-10.8)
[2018-07-07 05:40] LABS: CALCIUM 7.8 mg/dl (8.5-10.1); CREATININE 1.69 mg/dl (0.60-1.40); POTASSIUM 4.2 mmol/L (3.5-5.1)
[2018-07-07] MEDS ORDERED: NURSING VERBAL MED ORDER ONE (07:45)
--- NOTE | 2018-07-07 10:03 | Gastroenterology Progress Note ---
Progress Note Date of Service: Jul 07, 2018 Subjective Pt evaluation today including: conversation w/ patient No events overnight, no melena. Hb stable Review of Systems Constitutional: No see HPI, No fever, No chills, No sweats, No weight loss, No weakness, No fatigue, No problem reported Eyes: No see HPI, No worsening of vision, No eye pain, No redness, No discharge , No diplopia, No problem reported ENT: No see HPI, No hearing loss, No unusual epistaxis, No nasal symptoms, No sore throat, No tinnitus, No dental problems, No trouble swallowing, No pain on swallowing, No problem reported Respiratory: No see HPI, No cough, No sputum, No wheezing, No shortness of breath, No dyspnea on exertion, No dyspnea at rest, No hemoptysis, No problem reported Cardiac: No see HPI, No chest pain, No orthopnea, No PND, No edema, No claudication, No palpitations, No problem reported Abdomen: No see HPI, No pain, No nausea, No vomiting, No diarrhea, No constipation, No GI bleeding, No dysphagia, No odynophagia, No acolic stools, No jaundice, No dark urine, No problem reported Musculoskeletal: No see HPI, No joint pain, No muscle pain, No swelling, No calf pain, No problem reported Male : No see HPI, No dysuria, No urinary frequency, No incontinence, No nocturia more than once/night, No slowing stream, No hematuria, No sexual dysfunction, No problem reported Medications Current Inpatient Medications Medications (Trade) Dose Ordered Sig/Salome Route Start Time Stop Time Status Last Admin Dose Admin Acetaminophen (Tylenol Tab) 650 mg Q4H PRN PO 07/05/18 13:30 08/04/18 13:29 Ondansetron HCl (Zofran Inj) 4 mg Q6H PRN IV 07/05/18 13:30 08/04/18 13:29 Sodium Chloride 1,000 ml @ 80 mls/hr [id number] IV 07/05/18 14:30 08/04/18 14:29 07/07/18 04:08 80 MLS/HR Allopurinol (Zyloprim Tab) 100 mg MoWeFr@0900 PO 07/06/18 09:00 08/05/18 08:59 07/06/18 08:12 100 MG Isosorbide Mononitrate (Ismo Tab) 20 mg QAM PO 07/06/18 09:00 08/05/18 08:59 07/06/18 08:12 20 MG Loratadine (Claritin Tab) 10 mg DAILY PO 07/06/18 09:00 08/05/18 08:59 07/06/18 08:12 10 MG Metoprolol Succinate (Toprol Xl Tab) 50 mg BID PO 07/05/18 21:00 08/04/18 20:59 07/06/18 21:12 50 MG Montelukast Sodium (Singulair Tab) 10 mg QPM PO 07/06/18 21:00 08/05/18 20:59 07/06/18 21:12 10 MG Ranitidine HCl (zANTac TAB) 150 mg DAILY PO 07/06/18 09:00 08/05/18 08:59 07/06/18 08:13 150 MG Simvastatin (Zocor Tab) 10 mg QPM PO 07/05/18 21:00 08/04/18 20:59 07/06/18 21:13 10 MG Tamsulosin HCl (Flomax Cap) 0.4 mg QPM PO 07/06/18 21:00 08/05/18 20:59 07/06/18 21:12 0.4 MG Cholecalciferol (Vitamin D Tab) 2,000 inter.unit DAILY PO 07/06/18 09:00 08/05/18 08:59 07/06/18 08:12 2,000 INTER.UNIT Pantoprazole Sodium 40 mg/ Syringe 10 ml @ 5 mls/min DAILY@ IV 07/05/18 21:00 08/04/18 20:59 07/06/18 21:11 5 MLS/MIN Dutasteride (Avodart) 0.5 mg HS PO 07/06/18 21:00 08/05/18 20:59 07/06/18 21:12 0.5 MG Objective Vital Signs Date Time Temp Pulse Resp B/P (MAP) Pulse Ox O2 Delivery O2 Flow Rate FiO2 07/07/18 09:50 166/101 (122) 07/07/18 09:46 36.7 75 20 177/109 (131) 95 Room Air 07/07/18 07:46 36.7 70 16 149/88 (108) 97 07/07/18 07:43 73 16 158/90 (112) 07/07/18 04:29 36.4 70 20 152/87 (108) 97 Room Air 07/07/18 00:10 36.7 68 20 145/82 (103) 94 Room Air 07/07/18 00:00 Room Air 07/06/18 19:56 37.2 69 20 143/84 (103) 96 Room Air 07/06/18 16:33 95 Room Air 07/06/18 16:29 95 Room Air 07/06/18 15:25 36.3 77 18 168/89 (115) 95 Room Air 07/06/18 11:29 36.5 72 18 137/80 (99) 93 Physical Exam General Appearance: WD/WN, no apparent distress Respiratory/Chest: chest non-tender, lungs clear Cardiovascular: regular rate, rhythm, no edema, no gallop Abdomen: normal bowel sounds, non tender Extremities: normal range of motion, non-tender Neurologic/Psych: invoice checker II-XII nml as tested Laboratory Results Last 24 Hours Test 07/06/18 10:43 07/07/18 05:08 07/07/18 08:30 Hemoglobin 9.0 g/dL 8.6 g/dL Hematocrit 27.6 % 26.2 % White Blood Count 5.97 K/uL Red Blood Count 2.78 M/uL Mean Corpuscular Volume 94.2 fL Mean Corpuscular Hemoglobin 30.9 pg Mean Corpuscular Hemoglobin Concent 32.8 g/dl RDW Standard Deviation 51.7 fL RDW Coefficient of Variation 15.1 % Platelet Count 152 K/uL Mean Platelet Volume 9.5 fL Sodium Level 142 mmol/L Potassium Level 4.2 mmol/L Chloride Level 112 mmol/L Carbon Dioxide Level 24 mmol/L Anion Gap 6.0 mmol/L Blood Urea Nitrogen 20 mg/dl Creatinine 1.69 mg/dl Est Creatinine Clear Calc Drug Dose 38.9 ml/min Estimated GFR () 43.8 Estimated GFR (Non- 37.8 BUN/Creatinine Ratio 11.6 Random Glucose 96 mg/dl Calcium Level 7.8 mg/dl Troponin I 0.024 ng/ml Assessment and Plan 78 yo with what appears to be obscure overt GI bleeding with melena. Received records from [facility] of EGD/Colon dated 04/23. No lesions identified Will proceed with EGD today and then further recommendations to follow
[2018-07-07] MEDS ORDERED: PROPOFOL IV EMULSION 10 MG/ML 20 ML VIAL ONE (10:26)
[2018-07-07] MEDS ORDERED: LIDOCAINE HCL 2% 2 ML VIAL (20MG/ML) ONE (10:26)
[2018-07-07] MEDS ORDERED: ONDANSETRON INJ 2 MG/ML 2 ML VIAL ONE (10:26)
--- NOTE | 2018-07-07 10:27 | GI REPORT ---
Patient Name: Levi Pérez Procedure Date: 07/07/2018 9:59 AM Date of : 1940 Admit Type: Inpatient Age: 78 Gender: Male Attending MD: Talha Moreno MD Procedure: Upper GI endoscopy Providers: Talha Moreno MD Referring MD: Elvia PARSON Indications: Melena Medicines: Monitored Anesthesia Care Complications: No immediate complications. Estimated blood loss: None. Estimated Blood Loss: Estimated blood loss: none. Procedure: Pre-Anesthesia Assessment: - Pre-Anesthesia Assessment: - Prior to the procedure, a History and Physical was performed, and patient medications, allergies and sensitivities were reviewed. The patient's tolerance of previous anesthesia was reviewed. Please see [email or web address] for complete details. - The risks and benefits of the procedure and the sedation options and risks were discussed with the patient. All questions were answered and informed consent was obtained. - Patient identification and proposed procedure were verified prior to the procedure by the physician and the nurse. The procedure was verified in the pre-procedure area in the procedure room. After obtaining informed consent, the endoscope was passed carefully and meticuously under direct vision and only advanced when the lumen was clearly identified, C02 insuflation was utilized throughout the entirity of the procedure. Throughout the procedure, the patient's blood pressure, pulse, and oxygen saturations were monitored continuously. After obtaining informed consent, the endoscope was passed under direct vision. Throughout the procedure, the patient's blood pressure, pulse, and oxygen saturations were monitored continuously. The scope was introduced through the mouth, and advanced to the fourth part of duodenum. The upper GI endoscopy was accomplished without difficulty. The patient tolerated the procedure well. Findings: A large hiatal hernia was present. Localized mild inflammation characterized by friability was found in the gastric fundus. The examined duodenum was normal. Impression: - Large hiatal hernia. - Gastritis. - Normal examined duodenum. - No specimens collected. Recommendation: - [facility]. - Discuss with patient if desires repeat colonoscopy vs outpatient capsule. - No sigs of bleeding, mild gastritis in the region of hiatal hernia, but not to the extent of makayla Fer's erosions. Talha Moreno MD 07/07/2018 10:26:50 AM This report has been signed electronically. Note Initiated On: 07/07/2018 9:59 AM Number of Addenda: 0 I attest to the content of the Intraoperative Record and orders documented therein, exceptions below {[id number]}
--- NOTE | 2018-07-07 11:04 | Progress Note ---
Progress Note Date of Service Jul 07, 2018. Progress Note Discussed with patient in regards to no bleeding or bleeding lesions identified today on EGD. Options-Colonoscopy tomorrow vs outpatient capsule first given recent Colonoscopy by Dr. Prescott in [facility] in March for same problem. Patient desires outpt capsule endoscopy prior to repeating capsule. Send home on BID PPI just for measures for at least 2 months Outpt Capsule endoscopy Ok to advance diet
--- NOTE | 2018-07-07 11:05 | Anesthesiology Progress Note ---
Anesthesia Post Op Note Date & Time Jul 07, 2018 at 11:05 Vital Signs Pain Intensity: 0 Vital Signs Past 12 Hours Date Time Temp Pulse Resp B/P (MAP) Pulse Ox O2 Delivery O2 Flow Rate FiO2 07/07/18 10:59 67 18 153/88 (109) 98 Room Air 07/07/18 10:45 65 18 131/69 (89) 96 Room Air 07/07/18 10:30 64 16 102/55 (71) 100 Room Air 07/07/18 09:50 166/101 (122) 07/07/18 09:46 36.7 75 20 177/109 (131) 95 Room Air 07/07/18 08:00 96 Room Air 07/07/18 07:46 36.7 70 16 149/88 (108) 97 07/07/18 07:43 73 16 158/90 (112) 07/07/18 04:29 36.4 70 20 152/87 (108) 97 Room Air 07/07/18 00:10 36.7 68 20 145/82 (103) 94 Room Air 07/07/18 00:00 Room Air Notes Mental Status: alert / awake / arousable, participated in evaluation Pt Amnestic to Procedure: Yes Nausea / Vomiting: adequately controlled Pain: adequately controlled Airway Patency, RR, SpO2: stable & adequate BP & HR: stable & adequate Hydration State: stable & adequate Anesthetic Complications: no major complications apparent
[2018-07-07] MEDS: PANTOprazole INJ 40 MG in SYRINGE 0 ML IV SCH (11:21)
[2018-07-07] MEDS: CHOLECALCIFEROL 1000 INTER.UNIT TAB PO SCH (11:22)
[2018-07-07] MEDS: LORATADINE 10 MG TAB PO SCH (11:22)
[2018-07-07] MEDS: ISOSORBIDE MONONITRATE 20 MG TAB PO SCH (11:23)
[2018-07-07] MEDS: RANITIDINE HCL 150 MG TAB PO SCH (11:23)
[2018-07-07] MEDS: METOPROLOL SUCC 50MG EXT REL TAB PO SCH (11:24)
--- NOTE | 2018-07-07 14:28 | Cardiology Follow-Up ---
Subjective General Date of Service: Jul 07, 2018. Pt evaluation today including: conversation w/ patient, conversation w/ family , physical exam, chart review, lab review, review of studies, review of inpatient medication list History of Present Illness The patient is a 78 year old male seen in follow-up. Patient feeling well from a cardiovascular perspective. Denies recurrent lightheadedness, dizziness, flushing, syncope, or near syncope. Denies chest pain or unusual shortness of breath. EGD performed today with no obvious source of bleeding. Capsule endoscopy is planned. Troponin has trended down to normal range. Renal function improving. Patient requesting discharge. Offers no complaints at this time. Allergies Coded Allergies: Penicillins (Verified Allergy, Unknown, UNKNOWN, 07/05/18) Social History Smoking Status: Former Smoker Hx Tobacco Use In Past Year?: No (quit at age 39-10 pack year history) Hx Alcohol Use - Type And Amou: No Hx Substance Use - Type And Am: No Problem List Medical Problems: (1) Anemia Status: Acute (2) Elevated serum creatinine Status: Acute (3) Expressive aphasia Status: Acute (4) TIA (transient ischemic attack) Status: Acute Review of Systems Respiratory: No cough, No sputum, No wheezing, No shortness of breath, No dyspnea on exertion, No dyspnea at rest, No hemoptysis Cardiac: No chest pain, No orthopnea, No PND, No edema, No claudication, No palpitations Physical Exam Vital Signs Last Vital Signs Documentation Date Time Temp Pulse Resp B/P (MAP) Pulse Ox O2 Delivery O2 Flow Rate FiO2 07/07/18 12:12 36.7 68 18 125/76 (92) 96 Room Air Physical Exam Constitutional: General Apperance: heathly-appearing Level of Distress: NAD Head: normocephalic, atraumatic ENMT: normal ENT inspection Neck: supple, trachea midline Lungs: Auscultation: breath sounds normal, no wheezing, no rales/crackles, no rhonchi Cardiovascular: Heart Auscultation: RRR, normal S1, normal S2, I/ BETTY Peripheral Pulses: Radial Pulse: normal on the right Abdomen: Bowel Sounds: normal Inspection & Palpation: soft, non-distended, no tenderness, guarding & rebound Liver: non-tender Extremities: no cyanosis, no edema, no clubbing, no ulcers Neurologic: Gait & Station: pertinent finding (No focal motor deficit) Cranial Nerves: grossly intact Assessment and Plan Assessment and Plan 1. 78-year-old patient admitted with vasovagal syncope in the setting of anemia , dehydration, excessive heat with underlying CAD. 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 Unlikely plaque rupture event given stable ECG and echocardiogram. 2. Chronic coronary disease with history of recent cardiac catheterization demonstrating a chronic total occlusion of undisclosed vessel. Stable class II- III angina per history. 3. Peripheral vascular disease with history of prior carotid endarterectomy and abdominal aortic aneurysm repair 4. Acute renal insufficiency secondary to volume depletion -Creatinine trending downward 5. Anemia secondary to GI blood loss Plan / Recommendations: Continue current cardiovascular medications including beta-jesus, statin, and long acting nitrates. Restart antiplatelet therapy when clear by gastroenterology. Recommend outpatient 14 day ZIO (or MCOT) for further evaluation of syncope and possible occult dysrhythmia. This should be arranged to be a patient's primary care physician and outpatient geodesist, Dr. Corral. No further inpatient cardiovascular testing or intervention at this time. Thank you for allowing me to participate in the care of your patient Laboratory Results Last 24 Hours Test 07/07/18 05:08 07/07/18 08:30 07/07/18 11:54 White Blood Count 5.97 K/uL Red Blood Count 2.78 M/uL Hemoglobin 8.6 g/dL Hematocrit 26.2 % Mean Corpuscular Volume 94.2 fL Mean Corpuscular Hemoglobin 30.9 pg Mean Corpuscular Hemoglobin Concent 32.8 g/dl RDW Standard Deviation 51.7 fL RDW Coefficient of Variation 15.1 % Platelet Count 152 K/uL Mean Platelet Volume 9.5 fL Sodium Level 142 mmol/L Potassium Level 4.2 mmol/L Chloride Level 112 mmol/L Carbon Dioxide Level 24 mmol/L Anion Gap 6.0 mmol/L Blood Urea Nitrogen 20 mg/dl Creatinine 1.69 mg/dl Est Creatinine Clear Calc Drug Dose 38.9 ml/min Estimated GFR () 43.8 Estimated GFR (Non- 37.8 BUN/Creatinine Ratio 11.6 Random Glucose 96 mg/dl Calcium Level 7.8 mg/dl Troponin I 0.024 ng/ml Iron Level 18 mcg/dl Total Iron Binding Capacity 222 mcg/dl Transferrin 168 mg/dl Transferrin % Saturation 8 % Ferritin 43.9 ng/ml Vitamin B12 Level 450 pg/mL Folate 14.05 ng/mL
--- NOTE | 2018-07-07 15:37 | Progress Note ---
Medicine Progress Note Date & Time of Visit: Jul 07, 2018 at 15:15. Subjective Pt was seen and examined Sitting in bed with no distress Pt said that he feels fine Ambulates in the hallway with no distress He is very anxious to go home today He had EGD done this morning Denies any chest pain, palpitation, dizziness and SOB Objective Last 8 Hrs Date Time Temp Pulse Resp B/P (MAP) Pulse Ox O2 Delivery O2 Flow Rate FiO2 07/07/18 12:12 36.7 68 18 125/76 (92) 96 Room Air 07/07/18 11:23 36.8 67 16 153/80 (104) 97 Room Air 07/07/18 10:59 67 18 153/88 (109) 98 Room Air 07/07/18 10:45 65 18 131/69 (89) 96 Room Air 07/07/18 10:30 64 16 102/55 (71) 100 Room Air 07/07/18 09:50 166/101 (122) 07/07/18 09:46 36.7 75 20 177/109 (131) 95 Room Air 07/07/18 08:00 96 Room Air 07/07/18 07:46 36.7 70 16 149/88 (108) 97 07/07/18 07:43 73 16 158/90 (112) Physical Exam: General- No acute distress Head- atraumatic Eyes- PERRL, EOMI ENT- oropharynx clear Neck- supple, no JVD Lungs- clear to auscultation Heart- regular rhythm Abdomen- normal bowel sounds, Non distended Extremities- no calf tenderness Neuro- alert, oriented x 3; PERRL, EOMI Skin- warm & dry Laboratory Results: Last 24 Hours Test 07/07/18 05:08 07/07/18 08:30 07/07/18 11:54 White Blood Count 5.97 K/uL Red Blood Count 2.78 M/uL Hemoglobin 8.6 g/dL Hematocrit 26.2 % Mean Corpuscular Volume 94.2 fL Mean Corpuscular Hemoglobin 30.9 pg Mean Corpuscular Hemoglobin Concent 32.8 g/dl RDW Standard Deviation 51.7 fL RDW Coefficient of Variation 15.1 % Platelet Count 152 K/uL Mean Platelet Volume 9.5 fL Sodium Level 142 mmol/L Potassium Level 4.2 mmol/L Chloride Level 112 mmol/L Carbon Dioxide Level 24 mmol/L Anion Gap 6.0 mmol/L Blood Urea Nitrogen 20 mg/dl Creatinine 1.69 mg/dl Est Creatinine Clear Calc Drug Dose 38.9 ml/min Estimated GFR () 43.8 Estimated GFR (Non- 37.8 BUN/Creatinine Ratio 11.6 Random Glucose 96 mg/dl Calcium Level 7.8 mg/dl Troponin I 0.024 ng/ml Iron Level 18 mcg/dl Total Iron Binding Capacity 222 mcg/dl Transferrin 168 mg/dl Transferrin % Saturation 8 % Ferritin 43.9 ng/ml Vitamin B12 Level 450 pg/mL Folate 14.05 ng/mL Assessment & Plan NEAR SYNCOPE Possible related to GI bleed and hypovolemia No focal deficit on exam Fall precaution Stable GI BLEED Had EGD and colonoscopy at [facility] approximately 6 weeks ago Hemoglobin 8.8 on admission Hemoglobin was 13.1 back in 10/2017 Pt already held baby aspirin about 1 week ago On Protonix 40 mg IV twice daily NPO for possible EGD Case discussed with GI and waiting for cardiology clearance for the EGD due to pt cardiac history No contraindication for EGD but patient is considered moderate perioperative cardiovascular risk due to chronic stable angina as per cardiology 07/07 S/P EGD done today showed No sigs of bleeding, mild gastritis in the region of hiatal hernia, but not to the extent of makayla Fer's erosions. Case discussed with Gastro team recommended to continue PPI BID for at least 2 months GI discussed with pt the option for colonoscopy tomorrow vs outpatient capsule Pt said that he had a recent Colonoscopy by Dr. Prescott in [place] in March for same problem. He chose to have outpt capsule endoscopy Gastro team will arranged for the oupt capsule endoscopy and will contact the patient for the appointment Check CBC between 3 to 5 days to monitor hemoglobin Continue to hold aspirin for now ELEVATED TROPONIN Due to demand ischemia Troponin on admission elevated Repeat troponin today back to normal S/P cardiac catheterization at [facility] 06/08/18 Cath showed moderate to severe 2 vessel occlusive coronary disease Due to the anatomical location, medical management was advised Due to GI bleeding, aspirin given and not a candidate to start on anticoagulant Continue beta-jesus and statin Cardiology on board No further inpatient cardiac intervention or testing as per cardiology Cardiology Recommend outpatient 14 day ZIO (or MCOT) for further evaluation of syncope and possible occult dysrhythmia. Should be arranged by primary care physician and outpatient furnace mechanic, Dr. Corral. Asymptomatic Continue beta-jesus and nitrates CKD 3 Creatine continue to trend down stable HYPERTENSION BP controlled Continue isosorbide, metoprolol BPH Continue dutasteride and tamsulosin GOUT Continue allopurinol DVT PROPHYLAXIS SCDs due to GI bleeding CODE STATUS FULL CODE DISPOSITION DISCHARGE HOME TODAY FOLLOW UP WITH YOUR PCP DR. BOWENS Current Inpatient Medications: Current Inpatient Medications Medications (Trade) Dose Ordered Sig/Salome Route Start Time Stop Time Status Last Admin Dose Admin Acetaminophen (Tylenol Tab) 650 mg Q4H PRN PO 07/05/18 13:30 08/04/18 13:29 Ondansetron HCl (Zofran Inj) 4 mg Q6H PRN IV 07/05/18 13:30 08/04/18 13:29 Sodium Chloride 1,000 ml @ 80 mls/hr [id number] IV 07/05/18 14:30 08/04/18 14:29 07/07/18 04:08 80 MLS/HR Allopurinol (Zyloprim Tab) 100 mg MoWeFr@0900 PO 07/06/18 09:00 08/05/18 08:59 07/06/18 08:12 100 MG Isosorbide Mononitrate (Ismo Tab) 20 mg QAM PO 07/06/18 09:00 08/05/18 08:59 07/07/18 11:23 20 MG Loratadine (Claritin Tab) 10 mg DAILY PO 07/06/18 09:00 08/05/18 08:59 07/07/18 11:22 10 MG Metoprolol Succinate (Toprol Xl Tab) 50 mg BID PO 07/05/18 21:00 08/04/18 20:59 07/07/18 11:24 50 MG Montelukast Sodium (Singulair Tab) 10 mg QPM PO 07/06/18 21:00 08/05/18 20:59 07/06/18 21:12 10 MG Ranitidine HCl (zANTac TAB) 150 mg DAILY PO 07/06/18 09:00 08/05/18 08:59 07/07/18 11:23 150 MG Simvastatin (Zocor Tab) 10 mg QPM PO 07/05/18 21:00 08/04/18 20:59 07/06/18 21:13 10 MG Tamsulosin HCl (Flomax Cap) 0.4 mg QPM PO 07/06/18 21:00 08/05/18 20:59 07/06/18 21:12 0.4 MG Cholecalciferol (Vitamin D Tab) 2,000 inter.unit DAILY PO 07/06/18 09:00 08/05/18 08:59 07/07/18 11:22 2,000 INTER.UNIT Dutasteride (Avodart) 0.5 mg HS PO 07/06/18 21:00 08/05/18 20:59 07/06/18 21:12 0.5 MG Pantoprazole Sodium (Protonix Tab) 40 mg BID PO 07/07/18 21:00 08/06/18 20:59
[2018-07-07] MEDS ORDERED: PANT1TAB3 PO ×2 (15:44→16:01)
--- NOTE | 2018-07-07 15:47 | Discharge Instructions ---
Discharge Instructions Date of Service Jul 07, 2018. Admission Reason for Admission: Gi Bleed Discharge Discharge Diagnosis / Problem: GI bleed, Syncope, Elevated troponin Discharge Goals Goal(s): Decrease discomfort, Improve function, Improve disease control Activity Recommendations Activity Limitations: resume your previous activity (as tolerated) . Instructions / Follow-Up Instructions / Follow-Up Please call to schedule a follow up appointment with your primary care provider Dr. Jasso Follow up with your cardiology Dr. Corral. ( Call to schedule for the appointment) Gastroenterology will arrange for outpatient capsule endoscopy (Will contact you for the appointment) Check CBC between 3 to 5 days to monitor hemoglobin Continue to hold aspirin for now (your physician will advise you when to resume it) Avoid NSAIDs such as (Motrin, Aleve, Ibuprofen, Advil, Naproxen, Celebrex, Meloxicam, ...) Your cardiology or your primary care physician will consider to get outpatient 14 day ZIO (or MCOT) for further evaluation of syncope and possible occult dysrhythmia. Fall precaution Current Hospital Diet Patient's current hospital diet: AHA Diet (Heart Healthy) Discharge Diet Recommended Diet: AHA Diet (Heart Healthy) Procedures Procedures Performed: EGD Pending Studies Studies pending at discharge: no Medical Emergencies . Who to Call and When: Medical Emergencies: If at any time you feel your situation is an emergency, please call 911 immediately. . Non-Emergent Contact Non-Emergency issues call your: Primary Care Provider, Cw Operator Call Non-Emergent contact if: you have any medication questions . . "Provider Documentation" section prepared by Nano Alfaro. .
--- NOTE | 2018-07-07 16:06 | Discharge Summary ---
Discharge Summary Date of Service Jul 07, 2018. Discharge Summary Admission Date: Jul 05, 2018 at 13:20 Discharge Date: Jul 07, 2018 Discharge Disposition: Home Principal Diagnosis: Near Syncope Secondary Diagnoses/Problems: GI Bleed Elevated Troponin CKD stage 3 HTN Gout BPH Procedures: EGD CHEST ONE VIEW PORTABLE CLINICAL HISTORY: EVALUATE GI BLEED COMPARISON STUDY: 10/22/2017 FINDINGS: Chronic pleural reactive changes left base. Small fixed lateral hernia. Postoperative changes overlying left hilum. No acute abnormality. IMPRESSION: Chronic and postoperative change. No acute process. The above report was generated using voice recognition software. It may contain grammatical, syntax or spelling errors. Electronically signed by: Jayson Eden M.D. 07/05/2018 11:56 AM Dictated Date/Time: 07/05/2018 11:56 AM Consultations: Cardio Gastro Medication Reconciliation Continued Medications: Allopurinol (Zyloprim) 100 Mg Tab 100 MG PO MWF Cholecalciferol (Vitamin D) 2,000 Unit Tab 1 TAB PO DAILY Dutasteride (Avodart) 0.5 Mg Cap 0.5 MG PO DAILY, CAP Fluticasone Propionate (Nasal) (Flonase Allergy Relief) 50 Mcg/Act Spr 2 SPRAY MARIA ESTHER HS Isosorbide Mononitrate (Isosorbide Mononitrate) 20 Mg Tab 20 MG PO QAM Loratadine (Claritin) 10 Mg Tab 10 MG PO DAILY, TAB Metoprolol Succinate (Toprol Xl) 50 Mg Tabcr 50 MG PO BID Montelukast Sodium (Singulair) 10 Mg Tab 10 MG PO DAILY, TAB Nitroglycerin (Nitrostat) 0.4 Mg Tab 0.4 MG UT PRN, BTL Pantoprazole (Protonix) 40 Mg Tab 1 TAB PO BID for 30 Days, #60 TAB (This prescription has been renewed) Ranitidine (Zantac) 150 Mg Tab 150 MG PO DAILY, TAB Simvastatin (Zocor) 10 Mg Tab 10 MG PO QPM, TAB Tamsulosin Hcl (Flomax) 0.4 Mg Cap 0.4 MG PO DAILY, CAP Discontinued Medications: Aspirin (Aspirin EC Low Dose) 81 Mg Ectab 81 MG PO DAILY patient self stopped 1 week ago Admission Information HPI (per Admitting provider): 78-year-old male who presents the ED after a near syncopal event today. Over the past few months, patient was having dark stools suspicious for a GI bleed. Approximately 6 weeks ago patient underwent EGD and colonoscopy at [facility] which per patient's report was unremarkable. Patient reports that the bleeding has since stopped until 1 week ago and he has been having black stools again. Patient was seen by his PCP last week and is scheduled for an EGD in 2 days as an outpatient. Today while sitting at [place], patient reports he felt very flushed, lightheaded, nauseated. Patient was lowered to the ground with some help and EMS was called. He also had some midsternal chest tightness with this episode. Patient reports he has been experiencing this for the past several months. Patient underwent cardiac catheterization at [facility] on 06/08/18 that showed moderate to severe 2 vessel occlusive coronary disease however given patient's anatomy medical management was advised. Patient reports that this chest tightness will come on after eating. He reports that he can take 2 Tums and the discomfort will resolve. No shortness of breath. He denies abdominal pain, vomiting, and diarrhea. No other recent illnesses, fevers, chills. He denies any urinary symptoms. In the ED, patient's hemoglobin is 8.8 and troponin is mildly elevated at 0.100. EKG shows new T-wave inversions inferiorly. Patient is hemodynamically stable. He was given a Protonix bolus and started on a drip and also given IV Zofran. Physical Exam (per Admitting): General Appearance: WD/WN, no apparent distress Head: normocephalic, atraumatic Eyes: normal inspection, EOMI, sclerae normal ENT: hearing grossly normal, + pertinent finding (Mucous membranes moist) Neck: supple, no JVD, trachea midline Respiratory/Chest: lungs clear, normal breath sounds, no respiratory distress Cardiovascular: regular rate, rhythm, normal peripheral pulses, + pertinent finding (Trace edema BLE) Abdomen/GI: normal bowel sounds, non tender, soft, no organomegaly Extremities/Musculoskelatal: normal inspection, no calf tenderness, normal capillary refill Neurologic/Psych: no motor/sensory deficits, alert, normal mood/affect, oriented x 3 Skin: normal color, warm/dry Hospital Course NEAR SYNCOPE Possible related to GI bleed and hypovolemia No focal deficit on exam Fall precaution Stable GI BLEED Had EGD and colonoscopy at [facility] approximately 6 weeks ago Hemoglobin 8.8 on admission Hemoglobin was 13.1 back in 10/2017 Pt already held baby aspirin about 1 week ago On Protonix 40 mg IV twice daily NPO for possible EGD Case discussed with GI and waiting for cardiology clearance for the EGD due to pt cardiac history No contraindication for EGD but patient is considered moderate perioperative cardiovascular risk due to chronic stable angina as per cardiology 07/07 S/P EGD done today showed No sigs of bleeding, mild gastritis in the region of hiatal hernia, but not to the extent of makayla Fer's erosions. Case discussed with Gastro team recommended to continue PPI BID for at least 2 months GI discussed with pt the option for colonoscopy tomorrow vs outpatient capsule Pt said that he had a recent Colonoscopy by Dr. Prescott in [place] in March for same problem. He chose to have outpt capsule endoscopy Gastro team will arranged for the oupt capsule endoscopy and will contact the patient for the appointment Check CBC between 3 to 5 days to monitor hemoglobin Continue to hold aspirin for now ELEVATED TROPONIN Due to demand ischemia Troponin on admission elevated Repeat troponin today back to normal S/P cardiac catheterization at [facility] 06/08/18 Cath showed moderate to severe 2 vessel occlusive coronary disease Due to the anatomical location, medical management was advised Due to GI bleeding, aspirin given and not a candidate to start on anticoagulant Continue beta-jesus and statin Cardiology on board No further inpatient cardiac intervention or testing as per cardiology Cardiology Recommend outpatient 14 day ZIO (or MCOT) for further evaluation of syncope and possible occult dysrhythmia. Should be arranged by primary care physician and outpatient knockdown man, Dr. Corral. Asymptomatic Continue beta-jesus and nitrates CKD 3 Creatine continue to trend down stable HYPERTENSION BP controlled Continue isosorbide, metoprolol BPH Continue dutasteride and tamsulosin GOUT Continue allopurinol DVT PROPHYLAXIS SCDs due to GI bleeding CODE STATUS FULL CODE DISPOSITION DISCHARGE HOME TODAY FOLLOW UP WITH YOUR PCP DR. JASSO Total time spent on discharge = 35 minutes This includes examination of the patient, discharge planning, medication reconciliation, and communication with other providers. Discharge Instructions Discharge Instructions Date of Service Jul 07, 2018. Admission Reason for Admission: Gi Bleed Discharge Discharge Diagnosis / Problem: GI bleed, Syncope, Elevated troponin Discharge Goals Goal(s): Decrease discomfort, Improve function, Improve disease control Activity Recommendations Activity Limitations: resume your previous activity (as tolerated) . Instructions / Follow-Up Instructions / Follow-Up Please call to schedule a follow up appointment with your primary care provider Dr. Jasso Follow up with your cardiology Dr. Corral. ( Call to schedule for the appointment) Gastroenterology will arrange for outpatient capsule endoscopy (Will contact you for the appointment) Check CBC between 3 to 5 days to monitor hemoglobin Continue to hold aspirin for now (your physician will advise you when to resume it) Avoid NSAIDs such as (Motrin, Aleve, Ibuprofen, Advil, Naproxen, Celebrex, Meloxicam, ...) Your cardiology or your primary care physician will consider to get outpatient 14 day ZIO (or MCOT) for further evaluation of syncope and possible occult dysrhythmia. Fall precaution Current Hospital Diet Patient's current hospital diet: AHA Diet (Heart Healthy) Discharge Diet Recommended Diet: AHA Diet (Heart Healthy) Procedures Procedures Performed: EGD Pending Studies Studies pending at discharge: no Medical Emergencies . Who to Call and When: Medical Emergencies: If at any time you feel your situation is an emergency, please call 911 immediately. . Non-Emergent Contact Non-Emergency issues call your: Primary Care Provider, Code Number Stamper Call Non-Emergent contact if: you have any medication questions . . "Provider Documentation" section prepared by Nano Alfaro. . Additional Copies To Lexis Jasso M.D.
[2018-07-07] MEDS ORDERED: FERR325T5 PO (16:29)
[2018-07-07] MEDS ORDERED: PANTOprazole SOD 40 MG TAB PO SCH (21:00)
== END 2018-07-07 16:43 | disposition home or self-care (01) | DRG 378 ==
LOC: EDBD 11:27 → C.EDA 11:28 → C.MED 13:20 → ENRESERV 13:49
PROVIDERS: ADMIT Internal Medicine; ATTEND Internal Medicine
PROC: 0DJ08ZZ Inspection of Upper Intestinal Tract, Via Natural or Artificial Opening Endoscopic (ICD-10-PCS; principal; 2018-07-07 10:15)
DX: K92.1 Melena (principal); I24.8 Other forms of acute ischemic heart disease; D50.0 Iron deficiency anemia secondary to blood loss (chronic); I12.9 Hypertensive chronic kidney disease with stage 1 through stage 4 chronic kidney disease, or unspecified chronic kidney disease; N18.3 Chronic kidney disease, stage 3 (moderate); R55 Syncope and collapse; I25.118 Atherosclerotic heart disease of native coronary artery with other forms of angina pectoris; N40.0 Benign prostatic hyperplasia without lower urinary tract symptoms; M10.9 Gout, unspecified; N28.9 Disorder of kidney and ureter, unspecified; Z79.82 Long term (current) use of aspirin; Z79.899 Other long term (current) drug therapy; Z87.891 Personal history of nicotine dependence

== ENCOUNTER 2018-07-18 12:13 | Inpatient (IN) | payer OTHER ==
[~2018-07-18] VITALS: Ht 172.7 cm; Wt 82.9 kg
[~2018-07-18 12:13] MED LIST changes: +ALLO100T PO; -ASPI-320 PO; +FERR325T5 PO; +FLUT0.15 NAE; +ISM20 PO; -LOSA25TA18 PO; +METO-217 PO; +NTRGSL/4 UT; +PANT1TAB3 PO; -PRED-301 PO; -PRT/20 PO
[2018-07-18] MEDS ORDERED: SODIUM CHLORIDE 0.9% 1000ML 1,000 ML IV STA (12:20)
--- NOTE | 2018-07-18 12:53 | DIAGNOSTIC IMAGING REPORT ---
CHEST ONE VIEW PORTABLE CLINICAL HISTORY: 78 years-old Male presenting with EVALUATE ALTERED MENTAL STATUS/WEAKNESS. TECHNIQUE: Portable upright AP view of the chest was obtained. COMPARISON: 07/05/2017. FINDINGS: Atherosclerosis of the aortic arch. Cardiac silhouette normal in size. Surgical clips project over the mediastinum. Punctate hyperdensities in the left midlung possibly calcified granuloma. Partial obscuration of the left hemidiaphragm with small left pleural effusion as on prior exam. No pneumothorax. No new pulmonary opacity. Degenerative changes of the thoracic spine. Moderate hiatal hernia may be present. IMPRESSION: 1. Chronic changes at the left lung base. No superimposed infiltrate to suggest acute cardiopulmonary disease. Electronically signed by: Audi Callaway M.D. 07/18/2018 12:51 PM Dictated Date/Time: 07/18/2018 12:50 PM
--- NOTE | 2018-07-18 13:49 | EMERGENCY ROOM VISIT NOTE ---
History Report prepared by Live: Bren Rasmussen Under the Supervision of: Dr. Adam Gamez D.O. First contact with patient: 12:15 Stated Complaint: SOB History of Present Illness The patient is a 78 year old male who presents to the Emergency Room with complaints of an episode of shortness of breath that onset today. The patient [place] and became dizzy while he was getting out of the car. He notes that he had a tight collar on that made it difficult to breath. Per nurse, he stopped talking, turned grewal, and then turned pink again after a few seconds. The patient complains of dizziness and nausea. The patient denies chest pain, abdominal pain, leg swelling, and back pain. He states that he has a history of aneurysm, GI bleed, hypertension, and left lung cancer. Source of History: patient Onset: today Position: chest Timing: other (epsiode) Associated Symptoms: + SOB, + nausea, No chest pain, No abdominal pain, No back pain Note: The patient complains of dizziness. The patient denies leg swelling. Review of Systems See HPI for pertinent positives & negatives. A total of 10 systems reviewed and were otherwise negative. Past Medical & Surgical Medical Problems: (1) BPH (benign prostatic hyperplasia) (2) CAD (coronary atherosclerotic disease) (3) Dizziness (4) Gout (5) HTN (hypertension) (6) Lung cancer Surgical Problems: (1) H/O aortic aneurysm repair (2) History of left-sided carotid endarterectomy (3) Lung cancer (4) S/P AAA repair (5) S/P lobectomy of lung (6) S/P partial lobectomy of lung Family History Patient reports no known family medical history. Social History Smoking Status: Former Smoker Occupation Status: employed Current/Historical Medications Scheduled Allopurinol (Zyloprim), 100 MG PO MWF Cholecalciferol (Vitamin D), 1 TAB PO DAILY Dutasteride (Avodart), 0.5 MG PO DAILY Ferrous Sulfate (Ferrous Sulfate), 1 TAB PO BID Fluticasone Propionate (Nasal) (Flonase Allergy Relief), 2 SPRAY MARIA ESTHER HS Isosorbide Mononitrate (Isosorbide Mononitrate), 20 MG PO QAM Loratadine (Claritin), 10 MG PO DAILY Metoprolol Succinate (Toprol Xl), 50 MG PO BID Montelukast Sodium (Singulair), 10 MG PO DAILY Nitroglycerin (Nitrostat), 0.4 MG UT PRN Pantoprazole (Protonix), 1 TAB PO BID Ranitidine (Zantac), 150 MG PO DAILY Simvastatin (Zocor), 10 MG PO QPM Tamsulosin Hcl (Flomax), 0.4 MG PO DAILY Allergies Coded Allergies: Penicillins (Verified Allergy, Unknown, UNKNOWN, 07/18/18) Physical Exam Vital Signs Date Time Temp Pulse Resp B/P (MAP) Pulse Ox O2 Delivery O2 Flow Rate FiO2 07/18/18 17:01 76 26 142/87 100 Room Air 07/18/18 16:42 72 20 145/77 98 07/18/18 15:43 37.0 07/18/18 15:20 68 21 132/82 100 07/18/18 15:00 64 14 125/74 96 Room Air 07/18/18 14:18 82 25 134/86 96 Room Air 07/18/18 13:42 78 20 130/77 98 Room Air 07/18/18 12:37 98 Room Air 07/18/18 12:31 71 07/18/18 12:14 98 Room Air 07/18/18 12:14 78 14 119/67 98 Room Air Physical Exam GENERAL: Patient is awake, alert, and in no acute distress. Patient is resting comfortably and showing no signs of anxiety EYES: The conjunctivae are clear. The pupils are round and reactive. EARS, NOSE, MOUTH AND THROAT: The nose is without any evidence of any deformity. Mucous membranes are moist. Tongue is midline NECK: The neck is nontender and supple. RESPIRATORY: Normal respiratory effort is noted. There is no evidence of wheezing rhonchi or rales to auscultation. CARDIOVASCULAR: Regular rate and rhythm noted. There no murmurs rubs or gallops normal S1 normal S2 GASTROINTESTINAL: The abdomen is soft. Bowel sounds are present in all quadrants. Abdomen is nontender. MUSCULOSKELETAL/EXTREMITIES: There is no evidence of gross deformity. Full range of motion is noted in the hips and shoulders. SKIN: There is no obvious evidence of any rash. There are no petechiae, pallor or cyanosis noted. NEUROLOGIC: Patient is awake alert and oriented x3. Medical Decision & Procedures ER Provider Diagnostic Interpretation: Radiology results as stated below per my review and radiologist interpretation: CHEST ONE VIEW PORTABLE CLINICAL HISTORY: 78 years-old Male presenting with EVALUATE ALTERED MENTAL STATUS/WEAKNESS. TECHNIQUE: Portable upright AP view of the chest was obtained. COMPARISON: 07/05/2017. FINDINGS: Atherosclerosis of the aortic arch. Cardiac silhouette normal in size. Surgical clips project over the mediastinum. Punctate hyperdensities in the left midlung possibly calcified granuloma. Partial obscuration of the left hemidiaphragm with small left pleural effusion as on prior exam. No pneumothorax. No new pulmonary opacity. Degenerative changes of the thoracic spine. Moderate hiatal hernia may be present. IMPRESSION: 1. Chronic changes at the left lung base. No superimposed infiltrate to suggest acute cardiopulmonary disease. Electronically signed by: Audi Callaway M.D. 07/18/2018 12:51 PM Dictated Date/Time: 07/18/2018 12:50 PM Laboratory Results 07/18/18 14:00 Red Blood Count 3.01, Mean Corpuscular Volume 95.0, Mean Corpuscular Hemoglobin 30.9, Mean Corpuscular Hemoglobin Concent 32.5, Mean Platelet Volume 8.6, Neutrophils (%) (Auto) 70.3, Lymphocytes (%) (Auto) 18.0, Monocytes (%) (Auto) 7.8, Eosinophils (%) (Auto) 2.9, Basophils (%) (Auto) 0.3, Neutrophils # (Auto) 4.17, Lymphocytes # (Auto) 1.07, Monocytes # (Auto) 0.46, Eosinophils # (Auto) 0.17, Basophils # (Auto) 0.02 07/18/18 14:00 Test 07/18/18 14:00 07/18/18 14:20 White Blood Count 5.93 K/uL (4.8-10.8) Red Blood Count 3.01 M/uL (4.7-6.1) Hemoglobin 9.3 g/dL (14.0-18.0) Hematocrit 28.6 % (42-52) Mean Corpuscular Volume 95.0 fL (80-100) Mean Corpuscular Hemoglobin 30.9 pg (25-34) Mean Corpuscular Hemoglobin Concent 32.5 g/dl (32-36) Platelet Count 222 K/uL (130-400) Mean Platelet Volume 8.6 fL (7.4-10.4) Neutrophils (%) (Auto) 70.3 % Lymphocytes (%) (Auto) 18.0 % Monocytes (%) (Auto) 7.8 % Eosinophils (%) (Auto) 2.9 % Basophils (%) (Auto) 0.3 % Neutrophils # (Auto) 4.17 K/uL (1.4-6.5) Lymphocytes # (Auto) 1.07 K/uL (1.2-3.4) Monocytes # (Auto) 0.46 K/uL (0.11-0.59) Eosinophils # (Auto) 0.17 K/uL (0-0.5) Basophils # (Auto) 0.02 K/uL (0-0.2) RDW Standard Deviation 52.1 fL (36.4-46.3) RDW Coefficient of Variation 15.3 % (11.5-14.5) Immature Granulocyte % (Auto) 0.7 % Immature Granulocyte # (Auto) 0.04 K/uL (0.00-0.02) Prothrombin Time 10.6 SECONDS (9.0-12.0) Prothromb Time International Ratio 1.0 (0.9-1.1) Activated Partial Thromboplast Time 26.2 SECONDS (21.0-31.0) Partial Thromboplastin Ratio 1.0 Anion Gap 8.0 mmol/L (3-11) Est Creatinine Clear Calc Drug Dose 31.5 ml/min Estimated GFR () 34.9 Estimated GFR (Non- 30.1 BUN/Creatinine Ratio 19.5 (10-20) Calcium Level 8.2 mg/dl (8.5-10.1) Magnesium Level 2.4 mg/dl (1.8-2.4) Total Bilirubin 0.3 mg/dl (0.2-1) Direct Bilirubin 0.1 mg/dl (0-0.2) Aspartate Amino Transf (AST/SGOT) 11 U/L (15-37) Alanine Aminotransferase (ALT/SGPT) 22 U/L (12-78) Alkaline Phosphatase 72 U/L (45-117) Total Creatine Kinase 50 U/L (39-308) Creatine Kinase MB < 1.0 ng/ml (0.5-3.6) Creatine Kinase MB Ratio (0-3.0) Troponin I < 0.015 ng/ml (0-0.045) Total Protein 6.8 gm/dl (6.4-8.2) Albumin 3.0 gm/dl (3.4-5.0) Lipase 232 U/L (73-393) Thyroid Stimulating Hormone (TSH) 1.700 uIu/ml (0.300-4.500) Urine Color YELLOW Urine Appearance CLEAR (CLEAR) Urine pH 5.0 (4.5-7.5) Urine Specific [place] 1.017 (1.000-1.030) Urine Protein NEG (NEG) Urine Glucose (UA) NEG (NEG) Urine Ketones NEG (NEG) Urine Occult Blood NEG (NEG) Urine Nitrite NEG (NEG) Urine Bilirubin NEG (NEG) Urine Urobilinogen NEG (NEG) Urine Leukocyte Esterase NEG (NEG) Laboratory results per my review. Medications Administered Medications (Trade) Dose Ordered Sig/Salome Route Start Time Stop Time Status Last Admin Dose Admin Sodium Chloride 1,000 ml @ 999 mls/hr Q1H1M STAT IV 07/18/18 12:20 07/18/18 13:20 DC 07/18/18 12:40 999 MLS/HR ECG Per My Interpretation Indication: SOB/dyspnea Rate (beats per minute): 70 Rhythm: normal sinus Findings: no ectopy, other (Inferior t wave inversion noted) Change: no significant change Change: No change from 07/07/18. ED Course 1215: The patient was evaluated in room C7. A complete history and physical examination were performed. 1220: Ordered NSS 1,000 ml @ 999 mls/hr IV 1435: Upon reevaluation, the patient is resting comfortably. 1522: I discussed the patient's case with Aleta Man. The patient will be evaluated for further management. Medical Decision Prior records/ancillary studies reviewed. Triage Nursing notes reviewed. The patient's history was concerning for syncope. Differential diagnosis: Etiologies such as vasovagal event, infection, hypoglycemia, electrolyte abnormalities, cardiac sources, intracerebral event, toxicologic, neurologic, as well as others were entertained. The patient is a 78-year-old male who presented to the emergency department for an evaluation of syncope. The patient had an episode of near syncope initially. He then had an actual syncopal episode on route which was witnessed by the prehospital personnel. The patient had a pause after a PVC which appeared to last longer than expected the patient had symptoms with this pause and became ashen and had what was described as a syncopal episode. The patient was treated with IV fluids in the emergency department. I discussed patient's laboratory and radiographic studies with him. Currently he is being studied for GI bleeding. The patient had anemia. The patient's stool was dark but it was only trace heme positive. I do not feel this is likely consistent with a worsening GI bleed but rather from his iron pills. I discussed patient's laboratory and radiographic studies with the on-call [facility]. They have agreed to evaluate patient in the emergency department for further management and disposition. The patient was recently brought into the hospital for syncope. At that time was felt to be related to his anemia. This may still be the case but given the findings by the prehospital personnel and the amount of ectopy that he was noted to have on cardiac monitoring I would recommend observation for further cardiac dysrhythmia and evaluation for further intervention such as pacemaker placement if the symptoms would warrant. Medication Reconcilliation Current Medication List: was personally reviewed by me Blood Pressure Screening Patient's blood pressure: Normal blood pressure Consults Time Called: 1520 Consulting Physician: Aleta Man Returned Call: [phone]: I discussed the patient's case with Aleta Man. The patient will be evaluated for further management. Impression Primary Impression: Anemia Additional Impressions: Syncope PVC (premature ventricular contraction) Acute kidney injury Scribe Attestation The scribe's documentation has been prepared under my direction and personally reviewed by me in its entirety. I confirm that the note above accurately reflects all work, treatment, procedures, and medical decision making performed by me. Departure Information Dispostion Being Evaluated By Hospitalist Referrals Lexis Jasso M.D. (PCP) Forms IMPORTANT VISIT INFORMATION Problem Qualifiers Primary Impression: Anemia Anemia type: unspecified type Qualified Codes: D64.9 - Anemia, unspecified Additional Impressions: Syncope Syncope type: unspecified Qualified Codes: R55 - Syncope and collapse
[2018-07-18 14:10] LABS: BASO % 0.3 %; BASO ABS # 0.02 K/uL (0-0.2); EOS % 2.9 %; EOS ABS # 0.17 K/uL (0-0.5); HEMATOCRIT 28.6 % (42-52); HEMOGLOBIN 9.3 g/dL (14.0-18.0); IG# 0.04 K/uL (0.00-0.02); LYMPH ABS # 1.07 K/uL (1.2-3.4); MEAN CORPUSCULAR HEMOGLOBIN 30.9 pg (25-34); MEAN CORPUSCULAR HGB CONC 32.5 g/dl (32-36); MEAN PLATELET VOLUME 8.6 fL (7.4-10.4); MONO % 7.8 %; MONO ABS # 0.46 K/uL (0.11-0.59); NEUT % 70.3 %; NEUT ABS # 4.17 K/uL (1.4-6.5); PLATELET COUNT 222 K/uL (130-400); RED CELL DISTRIBUTION WIDTH CV 15.3 % (11.5-14.5); RED CELL DISTRIBUTION WIDTH SD 52.1 fL (36.4-46.3); WHITE BLOOD COUNT 5.93 K/uL (4.8-10.8)
[2018-07-18 14:19] LABS: PTT PATIENT 26.2 SECONDS (21.0-31.0)
[2018-07-18 14:36] LABS: ALKALINE PHOSPHATASE 72 U/L (45-117); ALT/SGPT 22 U/L (12-78); AST/SGOT 11 U/L (15-37); BLOOD UREA NITROGEN 40 mg/dl (7-18); CALCIUM 8.2 mg/dl (8.5-10.1); CARBON DIOXIDE 23 mmol/L (21-32); CKMB < 1.0 ng/ml (0.5-3.6); CREATININE 2.04 mg/dl (0.60-1.40); GLUCOSE 88 mg/dl (70-99); LIPASE 232 U/L (73-393); POTASSIUM 4.8 mmol/L (3.5-5.1); SODIUM 141 mmol/L (136-145); TOTAL PROTEIN 6.8 gm/dl (6.4-8.2)
--- NOTE | 2018-07-18 17:47 | History and Physical ---
History & Physical Date & Time of Service: Jul 18, 2018 at 17:47 Chief Complaint: SOB Primary Care Physician: Lexis Jasso M.D. History of Present Illness Source: patient, hospital records 78-year-old male with PMH of Anemia, BPH, CAD, CKD stage 3, recently discharged on 07/07 for near syncope and GI bleed presents the ED for dizziness. Pt said that today while at [employer] he felt very dizzy, nausea, sweating associated with SOB. Pt said that he turned grewal and then pink for a few seconds. He said that he had a tight button collar in his neck. he said that he was very hot. Pt said that he usually has dizziness when he walks sometimes. As per ER physician, EMS said that when they placed pt on the monitor, he had another episode of dizziness and looked very pale. At that time there was a short pause noted on the monitor. When pt discharged last time cardiology recommended for patient to follow with PCP and his cardiology to arrange for a outpatient 14 day ZIO (or MCOT) for further evaluation of syncope and possible occult dysrhythmia. Pt said that since discharged, he has not been able to see his pcp or his cardiology. Pt said that he continues to have brown stools. He said that he cannot tell if the dark stool is from the iron supplement or bleeding. He had colonoscopy and EGD done in [place] few weeks ago. He said that he received a call on Friday from to schedule for a capsule endoscopy. He had guaiac done in the ER that was lightly positive as per ER attending. Denies any chest pain, palpitation, abdominal pain, and back pain. Past Medical/Surgical History Medical Problems: (1) Anemia (2) BPH (benign prostatic hyperplasia) (3) CAD (coronary atherosclerotic disease) (4) Dizziness (5) Elevated serum creatinine (6) Expressive aphasia (7) Gout (8) HTN (hypertension) (9) Lung cancer (10) TIA (transient ischemic attack) Surgical Problems: (1) H/O aortic aneurysm repair (2) History of left-sided carotid endarterectomy (3) Lung cancer (4) S/P AAA repair (5) S/P lobectomy of lung (6) S/P partial lobectomy of lung Family History Patient reports no known family medical history. Social History Smoking Status: Former Smoker Housing status: lives alone Occupational Status: employed Allergies Coded Allergies: Penicillins (Verified Allergy, Unknown, UNKNOWN, 07/18/18) Home Medications Scheduled Allopurinol (Zyloprim), 100 MG PO MWF Cholecalciferol (Vitamin D), 1 TAB PO DAILY Dutasteride (Avodart), 0.5 MG PO DAILY Ferrous Sulfate (Ferrous Sulfate), 1 TAB PO BID Fluticasone Propionate (Nasal) (Flonase Allergy Relief), 2 SPRAY MARIA ESTHER HS Isosorbide Mononitrate (Isosorbide Mononitrate), 20 MG PO QAM Loratadine (Claritin), 10 MG PO DAILY Metoprolol Succinate (Toprol Xl), 50 MG PO BID Montelukast Sodium (Singulair), 10 MG PO DAILY Nitroglycerin (Nitrostat), 0.4 MG UT PRN Pantoprazole (Protonix), 1 TAB PO BID Ranitidine (Zantac), 150 MG PO DAILY Simvastatin (Zocor), 10 MG PO QPM Tamsulosin Hcl (Flomax), 0.4 MG PO DAILY Review of Systems Constitutional: + sweats, No fever, No chills Eyes: No redness ENT: No nasal symptoms, No sore throat Respiratory: + shortness of breath, No cough Cardiovascular: No chest pain Abdomen: + nausea, No pain Musculoskeletal: No calf pain Genitourinary - Male: No hematuria, No dysuria Neurologic: No memory loss, No paralysis Psychiatric: No substance abuse Endocrine: No fatigue Hematologic / Lymphatic: No night sweats Integumentary: No rash, No itch Physical Exam Vital Signs Date Time Temp Pulse Resp B/P (MAP) Pulse Ox O2 Delivery O2 Flow Rate FiO2 07/18/18 17:01 76 26 142/87 100 Room Air 07/18/18 16:42 72 20 145/77 98 07/18/18 15:43 37.0 07/18/18 15:20 68 21 132/82 100 07/18/18 15:00 64 14 125/74 96 Room Air 07/18/18 14:18 82 25 134/86 96 Room Air 07/18/18 13:42 78 20 130/77 98 Room Air 07/18/18 12:37 98 Room Air 07/18/18 12:31 71 07/18/18 12:14 98 Room Air 07/18/18 12:14 78 14 119/67 98 Room Air General Appearance: WD/WN, no apparent distress Head: normocephalic, atraumatic Eyes: PERRL, EOMI ENT: normal ENT inspection Neck: no JVD, trachea midline Respiratory/Chest: chest non-tender, no respiratory distress, no accessory muscle use Cardiovascular: regular rate, rhythm, no JVD Abdomen/GI: normal bowel sounds, non tender Back: no CVA tenderness Extremities/Musculoskelatal: no calf tenderness Neurologic/Psych: no motor/sensory deficits, alert, normal mood/affect Skin: warm/dry, no rash Diagnostics Laboratory Results Results Past 24 Hours Test 07/18/18 14:00 07/18/18 14:20 Range/Units White Blood Count 5.93 4.8-10.8 K/uL Red Blood Count 3.01 4.7-6.1 M/uL Hemoglobin 9.3 14.0-18.0 g/dL Hematocrit 28.6 42-52 % Mean Corpuscular Volume 95.0 80-100 fL Mean Corpuscular Hemoglobin 30.9 25-34 pg Mean Corpuscular Hemoglobin Concent 32.5 32-36 g/dl Platelet Count 222 130-400 K/uL Mean Platelet Volume 8.6 7.4-10.4 fL Neutrophils (%) (Auto) 70.3 % Lymphocytes (%) (Auto) 18.0 % Monocytes (%) (Auto) 7.8 % Eosinophils (%) (Auto) 2.9 % Basophils (%) (Auto) 0.3 % Neutrophils # (Auto) 4.17 1.4-6.5 K/uL Lymphocytes # (Auto) 1.07 1.2-3.4 K/uL Monocytes # (Auto) 0.46 0.11-0.59 K/uL Eosinophils # (Auto) 0.17 0-0.5 K/uL Basophils # (Auto) 0.02 0-0.2 K/uL RDW Standard Deviation 52.1 36.4-46.3 fL RDW Coefficient of Variation 15.3 11.5-14.5 % Immature Granulocyte % (Auto) 0.7 % Immature Granulocyte # (Auto) 0.04 0.00-0.02 K/uL Prothrombin Time 10.6 9.0-12.0 SECONDS Prothromb Time International Ratio 1.0 0.9-1.1 Activated Partial Thromboplast Time 26.2 21.0-31.0 SECONDS Partial Thromboplastin Ratio 1.0 Sodium Level 141 136-145 mmol/L Potassium Level 4.8 3.5-5.1 mmol/L Chloride Level 110 98-107 mmol/L Carbon Dioxide Level 23 21-32 mmol/L Anion Gap 8.0 3-11 mmol/L Blood Urea Nitrogen 40 7-18 mg/dl Creatinine 2.04 0.60-1.40 mg/dl Est Creatinine Clear Calc Drug Dose 31.5 ml/min Estimated GFR () 34.9 Estimated GFR (Non- 30.1 BUN/Creatinine Ratio 19.5 10-20 Random Glucose 88 70-99 mg/dl Calcium Level 8.2 8.5-10.1 mg/dl Magnesium Level 2.4 1.8-2.4 mg/dl Total Bilirubin 0.3 0.2-1 mg/dl Direct Bilirubin 0.1 0-0.2 mg/dl Aspartate Amino Transf (AST/SGOT) 11 15-37 U/L Alanine Aminotransferase (ALT/SGPT) 22 12-78 U/L Alkaline Phosphatase 72 45-117 U/L Total Creatine Kinase 50 39-308 U/L Creatine Kinase MB < 1.0 0.5-3.6 ng/ml Creatine Kinase MB Ratio 0-3.0 Troponin I < 0.015 0-0.045 ng/ml Total Protein 6.8 6.4-8.2 gm/dl Albumin 3.0 3.4-5.0 gm/dl Lipase 232 73-393 U/L Thyroid Stimulating Hormone (TSH) 1.700 0.300-4.500 uIu/ml Urine Color YELLOW Urine Appearance CLEAR CLEAR Urine pH 5.0 4.5-7.5 Urine Specific [place] 1.017 1.000-1.030 Urine Protein NEG NEG Urine Glucose (UA) NEG NEG Urine Ketones NEG NEG Urine Occult Blood NEG NEG Urine Nitrite NEG NEG Urine Bilirubin NEG NEG Urine Urobilinogen NEG NEG Urine Leukocyte Esterase NEG NEG Diagnostic Radiology CHEST ONE VIEW PORTABLE CLINICAL HISTORY: 78 years-old Male presenting with EVALUATE ALTERED MENTAL STATUS/WEAKNESS. TECHNIQUE: Portable upright AP view of the chest was obtained. COMPARISON: 07/05/2017. FINDINGS: Atherosclerosis of the aortic arch. Cardiac silhouette normal in size. Surgical clips project over the mediastinum. Punctate hyperdensities in the left midlung possibly calcified granuloma. Partial obscuration of the left hemidiaphragm with small left pleural effusion as on prior exam. No pneumothorax. No new pulmonary opacity. Degenerative changes of the thoracic spine. Moderate hiatal hernia may be present. IMPRESSION: 1. Chronic changes at the left lung base. No superimposed infiltrate to suggest acute cardiopulmonary disease. Electronically signed by: Audi Callaway M.D. 07/18/2018 12:51 PM Dictated Date/Time: 07/18/2018 12:50 PM Impression Assessment and Plan DIZZINESS Present on admission with dizziness, Nausea associated with SOB Possible Vasovagal vs cardiac arrhythmia Strip from EMS showed a quick second pause as per ER ( Might be due to PVC) Cardiology Recommended outpatient 14 day ZIO (or MCOT) for further evaluation of syncope and possible occult dysrhythmia in the last admission Troponin on admission negative EKG on admission showed no ischemic or AV block Currently asymptomatic Will get a carotid u/s Consult cardiology Repeat EKG in am Check for orthostatic BP Hold flomax for now Will continue monitor telemetry Echo done on 07/06 * Ejection Fraction = 60-65%. * There is mild concentric left ventricular hypertrophy. * The left ventricular wall motion is normal. * Aortic valve sclerosis moderate, without significant aortic valvular stenosis. * Trace aortic regurgitation. * There is mild mitral regurgitation. * There is mild tricuspid regurgitation. * The estimated systolic PAP is 40mmHg. HX GI BLEED Had EGD and colonoscopy at [facility] approximately 6 -8 weeks ago Hemoglobin 9.3 on admission, improved when discharge on 07.06 has been off of baby aspirin Continue PPI Had EGD done on last admission that showed No sigs of bleeding, mild gastritis in the region of hiatal hernia, but not to the extent of makayla Fer's erosions. Received call last week for outpatient capsule endoscopy Continue monitor hemoglobin CKD 3 Creatine on admission 2.04 Creatine baseline btw 1.7 to 1.9 Will give gentle hydration Avoid nephrotoxic agents Monitor BP HYPERTENSION BP controlled On isosorbide, metoprolol Will do orthostatic BP BPH On dutasteride Hold flomax for now until r/o orthostatic BP GOUT Continue allopurinol DVT PROPHYLAXIS SCDs due to recent admission for GI bleeding CODE STATUS FULL CODE Resuscitation Status VTE Prophylaxis Will order VTE Prophylaxis: Yes
--- NOTE | 2018-07-18 18:16 | DIAGNOSTIC IMAGING REPORT ---
CAROTID DOPPLER NECK ART CLINICAL HISTORY: 78 years-old Male presenting with dizziness. TECHNIQUE: Real-time grayscale and color and spectral Doppler ultrasound imaging of the bilateral carotid arteries was performed. NASCET criteria was used in evaluating this study. COMPARISON: 10/22/2017. FINDINGS: RIGHT: Common carotid artery (CCA): Atherosclerosis at the carotid bulb. Peak systolic velocity (PSV) 70 cm/s. Internal carotid artery (ICA): Atherosclerosis of the proximal ICA. PSV 77 cm/s. End diastolic velocity (EDV) 25 cm/s. ICA/CCA (systolic) ratio: 1.1. External carotid artery (ECA): Patent. PSV 70 cm/s. LEFT: Common carotid artery (CCA): Atherosclerosis at the carotid bulb. PSV 75 cm/s. Internal carotid artery (ICA): Atherosclerosis of the proximal ICA with findings suggesting pansystolic spectral broadening. PSV 82 cm/s. EDV 19 cm/s. ICA/CCA (systolic) ratio: 1.1. External carotid artery (ECA): Atherosclerosis. PSV 116 cm/s. Bilateral antegrade flow within the vertebral arteries. Blood pressure: Brachial: Right: 136/85 mmHg, Left: 149/87 mmHg. Reference ranges: Stenosis measurements are compared to reference velocity parameters by the Society of Radiologists in Ultrasound (SRU) consensus and Sonographic NASCET index (S-NASCET). SRU Primary parameters: ICA PSV <125 cm/s = normal or less than 50% stenosis; ICA PSV 125-230 cm/s = 50-69% stenosis; ICA PSV >230 cm/s = greater than or equal to 70% stenosis. SRU Additional parameters: ICA/CCA PSV ratio <2 = normal or less than 50% stenosis; ratio 2-4 = 50-69% stenosis; ratio >4 = greater than or equal to 70% stenosis. ICA EDV <40 cm/s = normal or less than 50% stenosis; ICA EDV 40-100 cm/s = 50-69% stenosis; ICA EDV >100 cm/s = greater than or equal to 70% stenosis. S-NASCET parameters: Deceleration spectral broadening + PSV <125 cm/s = less than 50% stenosis; pansystolic spectral broadening + PSV <125 cm/s = 16-49% stenosis; pansystolic spectral broadening + PSV >125 cm/s + EDV <110 cm/s or ICA/CCA PSV ratio 2-4 = 50-69% stenosis; pansystolic spectral broadening + PSV >270 cm/s OR EDV >110 cm/s OR ICA/CCA PSV ratio >4 = 70-79% stenosis; EDV >140 cm/s = 80-99% stenosis. IMPRESSION: 1. Atherosclerosis without hemodynamically significant stenosis in the right carotid arteries. 2. Atherosclerosis with findings suggesting less than 50% stenosis of the proximal left internal carotid artery. Electronically signed by: Audi Callaway M.D. 07/18/2018 6:14 PM Dictated Date/Time: 07/18/2018 6:10 PM
[2018-07-18 18:40] VITALS: BP 152/85; PULSE 72; TEMP 36.4; O2SAT 97
[2018-07-18 19:30] VITALS: O2SAT 97; Ht 172.7 cm; Wt 82.9 kg
[2018-07-18] MEDS ORDERED: METOPROLOL SUCC 50MG EXT REL TAB PO SCH (21:00)
[2018-07-18] MEDS ORDERED: NURSING VERBAL MED ORDER ONE (21:00)
[2018-07-18] MEDS: PANTOprazole SOD 40 MG TAB PO SCH (21:09)
[2018-07-18] MEDS: FERROUS SULFATE 325 MG TAB PO SCH (21:09)
[2018-07-18] MEDS: MONTELUKAST SOD 10 MG TAB PO SCH (21:10)
[2018-07-18] MEDS: SIMVASTATIN 10 MG TAB PO SCH (21:10)
[2018-07-18 23:16] VITALS: BP 123/45; PULSE 65; TEMP 36.7; O2SAT 97
[2018-07-18] MEDS: AVODART-ORDER AWAITING ACTION SCH (23:34)
[2018-07-19] VITALS (8 sets, daily range): BP systolic 102–151; BP diastolic 57–84; PULSE 47–73; TEMP 36.2–36.8; O2SAT 95–99
[2018-07-19 07:19] LABS: CALCIUM 8.5 mg/dl (8.5-10.1); CREATININE 2.08 mg/dl (0.60-1.40); POTASSIUM 4.8 mmol/L (3.5-5.1)
[2018-07-19] MEDS ORDERED: SODIUM CHLORIDE 0.9% 1000ML 1,000 ML IV SCH (07:30)
[2018-07-19 07:32] LABS: HEMATOCRIT 29.9 % (42-52); HEMOGLOBIN 9.7 g/dL (14.0-18.0); MEAN CELL VOLUME 95.5 fL (80-100); MEAN CORPUSCULAR HGB CONC 32.4 g/dl (32-36); MEAN PLATELET VOLUME 9.5 fL (7.4-10.4); PLATELET COUNT 229 K/uL (130-400); RED CELL DISTRIBUTION WIDTH CV 15.4 % (11.5-14.5); RED CELL DISTRIBUTION WIDTH SD 52.8 fL (36.4-46.3); WHITE BLOOD COUNT 5.49 K/uL (4.8-10.8)
[2018-07-19] MEDS: AVODART-ORDER AWAITING ACTION SCH ×2 (08:00→16:00)
[2018-07-19] MEDS: CHOLECALCIFEROL 1000 INTER.UNIT TAB PO SCH (08:17)
[2018-07-19] MEDS: FERROUS SULFATE 325 MG TAB PO SCH ×2 (08:17→20:37)
[2018-07-19] MEDS: ISOSORBIDE MONONITRATE 20 MG TAB PO SCH (08:17)
[2018-07-19] MEDS: PANTOprazole SOD 40 MG TAB PO SCH ×2 (08:17→20:37)
[2018-07-19] MEDS: RANITIDINE HCL 150 MG TAB PO SCH (08:18)
[2018-07-19] MEDS ORDERED: MONTELUKAST SOD 10 MG TAB PO SCH (09:00)
[2018-07-19] MEDS ORDERED: CHOLECALCIFEROL 1000 INTER.UNIT TAB PO SCH (09:00)
[2018-07-19] MEDS ORDERED: METOPROLOL SUCC 25MG EXT REL TAB PO ONE (10:45)
--- NOTE | 2018-07-19 11:53 | Progress Note ---
Medicine Progress Note Date & Time of Visit: Jul 19, 2018 at 10:45. Subjective Pt was seen and examined Sitting in chair with no distress Pt said that he feels fine He said that he does not have any dizziness today He tolerated his diet today Denies any chest pain, palpitation, dizziness and SOB Objective Last 8 Hrs Date Time Temp Pulse Resp B/P (MAP) Pulse Ox O2 Delivery O2 Flow Rate FiO2 07/19/18 08:00 Room Air 07/19/18 07:01 36.4 58 18 142/84 (103) 97 Room Air 07/19/18 04:10 36.8 52 16 128/75 (92) 97 Room Air Physical Exam: General- No acute distress Head- atraumatic Eyes- PERRL, EOMI ENT- oropharynx clear Neck- supple, no JVD Lungs- CTA B/L Heart- regular rhythm, +murmur Abdomen- normal bowel sounds, soft Extremities- no calf tenderness Neuro- alert, oriented x 3; PERRL, EOMI Skin- warm & dry Laboratory Results: Last 24 Hours Test 07/18/18 14:00 07/18/18 14:20 07/19/18 06:29 White Blood Count 5.93 K/uL 5.49 K/uL Red Blood Count 3.01 M/uL 3.13 M/uL Hemoglobin 9.3 g/dL 9.7 g/dL Hematocrit 28.6 % 29.9 % Mean Corpuscular Volume 95.0 fL 95.5 fL Mean Corpuscular Hemoglobin 30.9 pg 31.0 pg Mean Corpuscular Hemoglobin Concent 32.5 g/dl 32.4 g/dl Platelet Count 222 K/uL 229 K/uL Mean Platelet Volume 8.6 fL 9.5 fL Neutrophils (%) (Auto) 70.3 % Lymphocytes (%) (Auto) 18.0 % Monocytes (%) (Auto) 7.8 % Eosinophils (%) (Auto) 2.9 % Basophils (%) (Auto) 0.3 % Neutrophils # (Auto) 4.17 K/uL Lymphocytes # (Auto) 1.07 K/uL Monocytes # (Auto) 0.46 K/uL Eosinophils # (Auto) 0.17 K/uL Basophils # (Auto) 0.02 K/uL RDW Standard Deviation 52.1 fL 52.8 fL RDW Coefficient of Variation 15.3 % 15.4 % Immature Granulocyte % (Auto) 0.7 % Immature Granulocyte # (Auto) 0.04 K/uL Prothrombin Time 10.6 SECONDS Prothromb Time International Ratio 1.0 Activated Partial Thromboplast Time 26.2 SECONDS Partial Thromboplastin Ratio 1.0 Sodium Level 141 mmol/L 138 mmol/L Potassium Level 4.8 mmol/L 4.8 mmol/L Chloride Level 110 mmol/L 108 mmol/L Carbon Dioxide Level 23 mmol/L 24 mmol/L Anion Gap 8.0 mmol/L 6.0 mmol/L Blood Urea Nitrogen 40 mg/dl 35 mg/dl Creatinine 2.04 mg/dl 2.08 mg/dl Est Creatinine Clear Calc Drug Dose 31.5 ml/min 30.3 ml/min Estimated GFR () 34.9 34.1 Estimated GFR (Non- 30.1 29.4 BUN/Creatinine Ratio 19.5 16.9 Random Glucose 88 mg/dl 91 mg/dl Calcium Level 8.2 mg/dl 8.5 mg/dl Magnesium Level 2.4 mg/dl Total Bilirubin 0.3 mg/dl Direct Bilirubin 0.1 mg/dl Aspartate Amino Transf (AST/SGOT) 11 U/L Alanine Aminotransferase (ALT/SGPT) 22 U/L Alkaline Phosphatase 72 U/L Total Creatine Kinase 50 U/L Creatine Kinase MB < 1.0 ng/ml Creatine Kinase MB Ratio Troponin I < 0.015 ng/ml Total Protein 6.8 gm/dl Albumin 3.0 gm/dl Lipase 232 U/L Thyroid Stimulating Hormone (TSH) 1.700 uIu/ml Urine Color YELLOW Urine Appearance CLEAR Urine pH 5.0 Urine Specific [place] 1.017 Urine Protein NEG Urine Glucose (UA) NEG Urine Ketones NEG Urine Occult Blood NEG Urine Nitrite NEG Urine Bilirubin NEG Urine Urobilinogen NEG Urine Leukocyte Esterase NEG Assessment & Plan DIZZINESS Present on admission with dizziness, Nausea associated with SOB Mostly Vasovagal/ orthostatic hypotension Tele monitor showed frequent PVC Strip from EMS showed a quick second pause as per ER ( seems to be due to PVC) Repeat EKG this morning showed PVC Positive orthostatic Currently asymptomatic Carotid doppler showed findings suggesting less than 50% stenosis of the proximal left internal carotid artery and no significant stenosis in the right carotid arteries. Continue to hold flomax due to positive orthostatic Cardiology on board Echo done on 07/06 * Ejection Fraction = 60-65%. * There is mild concentric left ventricular hypertrophy. * The left ventricular wall motion is normal. * Aortic valve sclerosis moderate, without significant aortic valvular stenosis. * Trace aortic regurgitation. * There is mild mitral regurgitation. * There is mild tricuspid regurgitation. * The estimated systolic PAP is 40mmHg. Frequent PVC/Bradycardia Tele monitor and EKG showed PVC Metoprolol decreased to 25mg BID Continue monitor in tele HX GI BLEED Had EGD and colonoscopy at [facility] approximately 6 -8 weeks ago Hemoglobin 9.3 on admission, improved when discharge on 8.6 Hemoglobin improves to 9.7 today has been off of baby aspirin Continue PPI Had EGD done on last admission that showed No sigs of bleeding, mild gastritis in the region of hiatal hernia, but not to the extent of makayla Fer's erosions. Received call last week for outpatient capsule endoscopy Continue monitor hemoglobin CKD 3 Creatine on admission 2.04 Creatine baseline btw 1.7 to 1.9 Creatine today 2.08 Continue gentle IVFx 1 bag Avoid nephrotoxic agents Monitor BP HYPERTENSION Positive orthostatic Continue isosorbide Metoprolol decreased to 25mg Hold flomax due to orthostatic BPH On dutasteride Hold flomax for now until r/o orthostatic BP GOUT Continue allopurinol DVT PROPHYLAXIS SCDs due to recent admission for GI bleeding CODE STATUS FULL CODE Current Inpatient Medications: Current Inpatient Medications Medications (Trade) Dose Ordered Sig/Salome Route Start Time Stop Time Status Last Admin Dose Admin Allopurinol (Zyloprim Tab) 100 mg MoWeFr@0900 PO 07/20/18 09:00 08/19/18 08:59 Ferrous Sulfate (Feosol Tab) 325 mg BID PO 07/18/18 21:00 08/17/18 20:59 07/19/18 08:17 325 MG Isosorbide Mononitrate (Ismo Tab) 20 mg QAM PO 07/19/18 09:00 08/18/18 08:59 07/19/18 08:17 20 MG Pantoprazole Sodium (Protonix Tab) 40 mg BID PO 07/18/18 21:00 08/17/18 20:59 07/19/18 08:17 40 MG Ranitidine HCl (zANTac TAB) 150 mg DAILY PO 07/19/18 09:00 08/18/18 08:59 07/19/18 08:18 150 MG Simvastatin (Zocor Tab) 10 mg QPM PO 07/18/18 21:00 08/17/18 20:59 07/18/18 21:10 10 MG Miscellaneous Information (Order Awaiting Action) 1 ea QS N/A 07/19/18 00:00 08/18/18 00:00 Cholecalciferol (Vitamin D Tab) 2,000 inter.unit DAILY PO 07/19/18 09:00 08/18/18 08:59 07/19/18 08:17 2,000 INTER.UNIT Montelukast Sodium (Singulair Tab) 10 mg HS PO 07/18/18 21:00 08/17/18 20:59 07/18/18 21:10 10 MG Sodium Chloride 1,000 ml @ 75 mls/hr [id number] IV 07/19/18 07:30 07/19/18 20:49 07/19/18 08:16 75 MLS/HR Metoprolol Succinate (Toprol Xl Tab) 25 mg BID PO 07/19/18 21:00 08/18/18 20:59 Metoprolol Succinate (Toprol Xl Tab) 25 mg 1045 ONCE PO 07/19/18 10:45 07/19/18 10:46
--- NOTE | 2018-07-19 19:30 | CARDIOLOGY CONSULTATION ---
DATE OF CONSULTATION: 07/19/2018 REQUESTING PHYSICIAN: Nano Alfaro MD REASON FOR CONSULTATION: Near syncopal episode. HISTORY OF PRESENT ILLNESS: Mr. Pérez is a very pleasant 78-year-old gentleman who is now only following with our cardiology practice, who presented to [facility] on 07/18/2018 with a complaint of a near syncopal event. 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 He states that before the event, he had some herbal tea in the morning to drink and no other liquids, and then several hours later, he went to the [employer] where it was extremely warm. Upon arising out of his car, he got lightheaded, and as he proceeded into the [employer] and up steps, the lightheadedness worsened. He never lost consciousness at this time; however, the lightheadedness worsened, and he felt as though he might, so EMS was called. 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 Since admission, the patient was given IV fluids, and he states he is starting to feel much better now. Of note, the patient was recently hospitalized only 2 weeks ago for a similar event where he was seen and was recommended a 14-day outpatient Zero patch be performed and he follow up with his primary commercial energy auditor, Dr. Corral. PAST SURGICAL HISTORY: 1. History of aortic aneurysm repair. 2. Left carotid endarterectomy. 3. Lung cancer. 4. Abdominal aortic aneurysm repair. 5. Lobectomy. 6. Reported multiple stents to unknown vessels. PAST MEDICAL HISTORY: 1. Coronary artery disease, status post PCI to unknown vessels, with a likely chronic total occlusion. 2. Hypertension. 3. Lung cancer. 4. Gout. 5. BPH. FAMILY HISTORY: Remarkable for father who had a myocardial infarction at age 57. SOCIAL HISTORY: Patient is a former smoker. He denies any alcohol use. He lives by himself. 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 REVIEW OF SYSTEMS: As per HPI, all other review of systems reviewed and negative at this time. ALLERGIES: PENICILLIN. CURRENT MEDICATIONS: 1. Metoprolol succinate 25 mg b.i.d. 2. Isosorbide mononitrate daily. 3. Zantac daily. 4. Protonix daily. 5. Zocor 10 mg daily. PHYSICAL EXAMINATION: VITAL SIGNS: Temperature 36.4, pulse 61, respiratory rate 12, blood pressure 141/77. The patient did have positive orthostatic vital signs this a.m. GENERAL: Awake, alert, oriented x3, in no acute distress, out of bed in chair. HEENT: Normocephalic and atraumatic. Pupils equal, round, and reactive to light and accommodation. Extraocular muscles intact. Anicteric sclerae. Moist mucous membranes. NECK: No JVD, no bruit. CARDIOVASCULAR: Regular. Positive S4. Normal S1 and S2. No S3. No murmurs or rubs. PULMONARY: Clear to auscultation bilaterally. No rales, rhonchi, or wheezing. GASTROINTESTINAL: Bowel sounds x4. Soft. No rebound, guarding, or tenderness. No organomegaly. EXTREMITIES: No clubbing, cyanosis, or edema. +2 pedal pulses bilaterally. SKIN: Warm and dry. TEST RESULTS: 2D echocardiogram performed on 07/06/2018 that was read as mild concentric LVH with normal LV systolic function and wall motion, EF 60%-65%, moderate aortic valve sclerosis/stenosis, mild mitral regurgitation, mild tricuspid regurgitation, PA systolic pressure of 40 mmHg. Telemetry review shows sinus rhythm with frequent PVCs and occasional runs of ventricular bigeminy. IMPRESSION: 1. Orthostatic near syncope. 2. Frequent PVCs. 3. Coronary artery disease. 4. Significant volume depletion. RECOMMENDATIONS: It is my pleasure to see Mr. Pérez in consultation today. The patient and his son were counseled that given the clinical context, it appears that patient was volume depleted and most likely suffered from an orthostatic event, so he was counseled on the need for avoidance in the future, and at this time, I would like to monitor him overnight for another night to make sure we are not missing any arrhythmias. We will continue with IV fluids at this time, and I will be continuing on his beta ejsus. He should then follow up with his primary commercial energy auditor as an outpatient.
[2018-07-19] MEDS: SIMVASTATIN 10 MG TAB PO SCH (20:37)
[2018-07-19] MEDS: MONTELUKAST SOD 10 MG TAB PO SCH (20:37)
[2018-07-19] MEDS: METOPROLOL SUCC 25MG EXT REL TAB PO SCH (20:43)
[2018-07-20 03:54] VITALS: BP 146/75; PULSE 65; TEMP 36.2; O2SAT 99
--- NOTE | 2018-07-20 06:45 | Clinical Documentation Query ---
CLINICAL DOCUMENTATION QUERY 78 yo male admitted for dizziness and orthostatic hypotension. Creatinine is 2.04 on admission with a baseline of 1.69 and 1.77. Patient has a history of CKD 3. In your clinical opinion is this patient being managed for: ( ) Acute kidney failure ( ) Not Agree ( ) Other explanation of clinical findings (No explanation is considered a No Response) ( ) Unable to determine ( ) Need to Discuss (Phone CDS or qliq) (No discussion is considered a No Response) The medical record reflects the following clinical findings, treatment, and risk factors. Clinical Indicators: As above Treatment: IV hydration, serial PRPs Risk Factors: Age, CKD, anemia Please clarify and document your clinical opinion in the progress notes and discharge summary. Terms such as "probable", "suspected", "likely", "questionable", "possible", or "still to be ruled out" are acceptable. IF IN AGREEMENT, YOU MUST DOCUMENT ABOVE DIAGNOSTIC STATEMENT IN DAILY PROGRESS NOTES AND DISCHARGE SUMMARY. This document is not part of the patient's record. Thank You, Bren Page RN, MSN [id number]
[2018-07-20] MEDS: AVODART-ORDER AWAITING ACTION SCH ×2 (06:58)
[2018-07-20 07:25] LABS: CALCIUM 8.7 mg/dl (8.5-10.1); CREATININE 2.06 mg/dl (0.60-1.40); POTASSIUM 4.5 mmol/L (3.5-5.1)
[2018-07-20 07:26] VITALS: BP_SYST 130; BP_SYST 132; BP_SYST 137; BP_DIAS 72; BP_DIAS 77; BP_DIAS 78; PULSE 71; PULSE 74; TEMP 36.2; O2SAT 98
[2018-07-20] MEDS: METOPROLOL SUCC 25MG EXT REL TAB PO SCH (08:08)
[2018-07-20] MEDS: CHOLECALCIFEROL 1000 INTER.UNIT TAB PO SCH (08:08)
[2018-07-20] MEDS: PANTOprazole SOD 40 MG TAB PO SCH (08:08)
[2018-07-20] MEDS: RANITIDINE HCL 150 MG TAB PO SCH (08:08)
[2018-07-20] MEDS: ISOSORBIDE MONONITRATE 20 MG TAB PO SCH (08:08)
[2018-07-20] MEDS: FERROUS SULFATE 325 MG TAB PO SCH (08:08)
[2018-07-20] MEDS ORDERED: ALLOPURINOL 100 MG TAB PO SCH (09:00)
[2018-07-20 10:50] VITALS: BP 109/65
--- NOTE | 2018-07-20 11:34 | Progress Note ---
Medicine Progress Note Date & Time of Visit: Jul 20, 2018 at 11:28. Subjective Pt was seen and examined Sitting in chair with no distress reading newspaper Pt said that he feels much better today He said that he walked around with nurse this morning with no dizziness Denies any chest pain, palpitation, dizziness and SOB Objective Last 8 Hrs Date Time Temp Pulse Resp B/P (MAP) Pulse Ox O2 Delivery O2 Flow Rate FiO2 07/20/18 07:50 Room Air 07/20/18 07:26 36.2 74 18 130/78 (95) 98 Room Air 71 137/77 (97) 71 132/72 (92) 07/20/18 03:54 36.2 65 16 146/75 (98) 99 Room Air Physical Exam: General- No acute distress Head- atraumatic Eyes- PERRL, EOMI ENT- oropharynx clear Neck- supple, no JVD Lungs- CTA B/L Heart- regular rhythm, +murmur Abdomen- normal bowel sounds, soft Extremities- no calf tenderness Neuro- alert, oriented x 3; PERRL, EOMI Skin- warm & dry Laboratory Results: Last 24 Hours Test 07/20/18 06:31 Sodium Level 141 mmol/L Potassium Level 4.5 mmol/L Chloride Level 109 mmol/L Carbon Dioxide Level 23 mmol/L Anion Gap 9.0 mmol/L Blood Urea Nitrogen 32 mg/dl Creatinine 2.06 mg/dl Est Creatinine Clear Calc Drug Dose 30.5 ml/min Estimated GFR () 34.5 Estimated GFR (Non- 29.7 BUN/Creatinine Ratio 15.6 Random Glucose 98 mg/dl Calcium Level 8.7 mg/dl Assessment & Plan DIZZINESS Present on admission with dizziness, Nausea associated with SOB Mostly Vasovagal/ orthostatic hypotension Tele monitor showed frequent PVC Strip from EMS showed a quick second pause as per ER ( seems to be due to PVC) Repeat EKG this morning showed PVC Positive orthostatic Currently asymptomatic Carotid doppler showed findings suggesting less than 50% stenosis of the proximal left internal carotid artery and no significant stenosis in the right carotid arteries. Continue to hold flomax due to positive orthostatic Cardiology on board 07/20 Dizziness resolved No orthostatic VS today Advised pt to move slowly when you are going from a sitting to standing position to avoid falling. Fall precaution Echo done on 07/06 * Ejection Fraction = 60-65%. * There is mild concentric left ventricular hypertrophy. * The left ventricular wall motion is normal. * Aortic valve sclerosis moderate, without significant aortic valvular stenosis. * Trace aortic regurgitation. * There is mild mitral regurgitation. * There is mild tricuspid regurgitation. * The estimated systolic PAP is 40mmHg. Frequent PVC/Bradycardia Tele monitor and EKG showed PVC Continue metoprolol 25mg BID Stable HX GI BLEED Had EGD and colonoscopy at [facility] approximately 6 -8 weeks ago Hemoglobin 9.3 on admission, improved when discharge on 8.6 Hemoglobin improves to 9.7 today has been off of baby aspirin Continue PPI Had EGD done on last admission that showed No sigs of bleeding, mild gastritis in the region of hiatal hernia, but not to the extent of makayla Fer's erosions. Received call last week for outpatient capsule endoscopy Advised pt to call to schedule the capsule endoscopy Continue monitor hemoglobin CKD 3 Creatine on admission 2.04 Creatine baseline btw 1.7 to 1.9 Received gently hydration Creatine today 2.06 Avoid nephrotoxic agents Monitor BP HYPERTENSION Positive orthostatic on admission Continue isosorbide and metoprolol 25mg Stable BPH On dutasteride Will resume flomax on discharge but if symptoms reoccur please d/c flomax GOUT Continue allopurinol DVT PROPHYLAXIS SCDs due to recent admission for GI bleeding CODE STATUS FULL CODE DISPOSITION Follow up with Dr. Jasso on 07/23 (already had an appointment schedule) Current Inpatient Medications: Current Inpatient Medications Medications (Trade) Dose Ordered Sig/Salome Route Start Time Stop Time Status Last Admin Dose Admin Allopurinol (Zyloprim Tab) 100 mg MoWeFr@0900 PO 07/20/18 09:00 08/19/18 08:59 07/20/18 08:07 100 MG Ferrous Sulfate (Feosol Tab) 325 mg BID PO 07/18/18 21:00 08/17/18 20:59 07/20/18 08:08 325 MG Isosorbide Mononitrate (Ismo Tab) 20 mg QAM PO 07/19/18 09:00 08/18/18 08:59 07/20/18 08:08 20 MG Pantoprazole Sodium (Protonix Tab) 40 mg BID PO 07/18/18 21:00 08/17/18 20:59 07/20/18 08:08 40 MG Ranitidine HCl (zANTac TAB) 150 mg DAILY PO 07/19/18 09:00 08/18/18 08:59 07/20/18 08:08 150 MG Simvastatin (Zocor Tab) 10 mg QPM PO 07/18/18 21:00 08/17/18 20:59 07/19/18 20:37 10 MG Miscellaneous Information (Order Awaiting Action) 1 ea QS N/A 07/19/18 00:00 08/18/18 00:00 Cholecalciferol (Vitamin D Tab) 2,000 inter.unit DAILY PO 07/19/18 09:00 08/18/18 08:59 07/20/18 08:08 2,000 INTER.UNIT Montelukast Sodium (Singulair Tab) 10 mg HS PO 07/18/18 21:00 08/17/18 20:59 07/19/18 20:37 10 MG Metoprolol Succinate (Toprol Xl Tab) 25 mg BID PO 07/19/18 21:00 08/18/18 20:59 07/20/18 08:08 25 MG
[2018-07-20] MEDS ORDERED: TPRSR/25 PO (12:00)
--- NOTE | 2018-07-20 12:05 | Discharge Instructions ---
Discharge Instructions Date of Service Jul 20, 2018. Admission Reason for Admission: Dizziness Discharge Discharge Diagnosis / Problem: Dizziness Discharge Goals Goal(s): Decrease discomfort, Increase independence, Improve disease control Activity Recommendations Activity Limitations: resume your previous activity (as tolerated) . Instructions / Follow-Up Instructions / Follow-Up Please follow up with your primary care provider Dr. Jasso Follow up with your cardiology Dr. Corral. ( Call to schedule for the appointment) Gastroenterology to schedule for your capsule endoscopy Continue holding aspirin (your physician will advise you when to resume it) Avoid NSAIDs such as (Motrin, Aleve, Ibuprofen, Advil, Naproxen, Celebrex, Meloxicam, ...) Your cardiology or your primary care physician will need to arrange for outpatient 14 day ZIO (or MCOT) for further evaluation of syncope and possible occult dysrhythmia. Check BMP in 1 week (Your physician will give you the lab order) Fall precaution Metoprolol decreased to 25mg twice a day If dizziness reoccurs, please hold the Flomax and inform your primary care physician about that Current Hospital Diet Patient's current hospital diet: AHA Diet (Heart Healthy) Discharge Diet Recommended Diet: AHA Diet (Heart Healthy) Pending Studies Studies pending at discharge: no Medical Emergencies . Who to Call and When: Medical Emergencies: If at any time you feel your situation is an emergency, please call 911 immediately. . Non-Emergent Contact Non-Emergency issues call your: Primary Care Provider, Gyn Physician, Hydrogen Cell Tender Call Non-Emergent contact if: you have any medication questions . . "Provider Documentation" section prepared by Nano Alfaro. .
[2018-07-20 12:21] VITALS: BP 109/65; PULSE 71; TEMP 36.2; O2SAT 98
--- NOTE | 2018-07-20 18:38 | Discharge Summary ---
Discharge Summary Date of Service Jul 20, 2018. Discharge Summary Admission Date: Jul 18, 2018 at 17:09 Discharge Date: Jul 20, 2018 Discharge Disposition: Home with services Principal Diagnosis: Dizziness Secondary Diagnoses/Problems: Frequent PVC/Bradycardia HTN HX GI BLEED CKD 3 BPH GOUT Procedures: CAROTID DOPPLER NECK ART CLINICAL HISTORY: 78 years-old Male presenting with dizziness. TECHNIQUE: Real-time grayscale and color and spectral Doppler ultrasound imaging of the bilateral carotid arteries was performed. NASCET criteria was used in evaluating this study. COMPARISON: 10/22/2017. FINDINGS: RIGHT: Common carotid artery (CCA): Atherosclerosis at the carotid bulb. Peak systolic velocity (PSV) 70 cm/s. Internal carotid artery (ICA): Atherosclerosis of the proximal ICA. PSV 77 cm/s. End diastolic velocity (EDV) 25 cm/s. ICA/CCA (systolic) ratio: 1.1. External carotid artery (ECA): Patent. PSV 70 cm/s. LEFT: Common carotid artery (CCA): Atherosclerosis at the carotid bulb. PSV 75 cm/s. Internal carotid artery (ICA): Atherosclerosis of the proximal ICA with findings suggesting pansystolic spectral broadening. PSV 82 cm/s. EDV 19 cm/s. ICA/CCA (systolic) ratio: 1.1. External carotid artery (ECA): Atherosclerosis. PSV 116 cm/s. Bilateral antegrade flow within the vertebral arteries. Blood pressure: Brachial: Right: 136/85 mmHg, Left: 149/87 mmHg. Reference ranges: Stenosis measurements are compared to reference velocity parameters by the Society of Radiologists in Ultrasound (SRU) consensus and Sonographic NASCET index (S-NASCET). SRU Primary parameters: ICA PSV <125 cm/s = normal or less than 50% stenosis; ICA PSV 125-230 cm/s = 50-69% stenosis; ICA PSV >230 cm/s = greater than or equal to 70% stenosis. SRU Additional parameters: ICA/CCA PSV ratio <2 = normal or less than 50% stenosis; ratio 2-4 = 50-69% stenosis; ratio >4 = greater than or equal to 70% stenosis. ICA EDV <40 cm/s = normal or less than 50% stenosis; ICA EDV 40-100 cm/s = 50-69% stenosis; ICA EDV >100 cm/s = greater than or equal to 70% stenosis. S-NASCET parameters: Deceleration spectral broadening + PSV <125 cm/s = less than 50% stenosis; pansystolic spectral broadening + PSV <125 cm/s = 16-49% stenosis; pansystolic spectral broadening + PSV >125 cm/s + EDV <110 cm/s or ICA/CCA PSV ratio 2-4 = 50-69% stenosis; pansystolic spectral broadening + PSV >270 cm/s OR EDV >110 cm/s OR ICA/CCA PSV ratio >4 = 70-79% stenosis; EDV >140 cm/s = 80-99% stenosis. IMPRESSION: 1. Atherosclerosis without hemodynamically significant stenosis in the right carotid arteries. 2. Atherosclerosis with findings suggesting less than 50% stenosis of the proximal left internal carotid artery. Electronically signed by: Audi Callaway M.D. 07/18/2018 6:14 PM Dictated Date/Time: 07/18/2018 6:10 PM [~ rep ct add3]] CHEST ONE VIEW PORTABLE CLINICAL HISTORY: 78 years-old Male presenting with EVALUATE ALTERED MENTAL STATUS/WEAKNESS. TECHNIQUE: Portable upright AP view of the chest was obtained. COMPARISON: 07/05/2017. FINDINGS: Atherosclerosis of the aortic arch. Cardiac silhouette normal in size. Surgical clips project over the mediastinum. Punctate hyperdensities in the left midlung possibly calcified granuloma. Partial obscuration of the left hemidiaphragm with small left pleural effusion as on prior exam. No pneumothorax. No new pulmonary opacity. Degenerative changes of the thoracic spine. Moderate hiatal hernia may be present. IMPRESSION: 1. Chronic changes at the left lung base. No superimposed infiltrate to suggest acute cardiopulmonary disease. Electronically signed by: Audi Callaway M.D. 07/18/2018 12:51 PM Dictated Date/Time: 07/18/2018 12:50 PM Consultations: cardio Medication Reconciliation Changed Medications: Metoprolol Succinate (Metoprolol Succinate ER) 25 Mg Tabcr 1 TAB PO BID for 30 Days (Changed from: Metoprolol Succinate (Toprol Xl) 50 Mg Tabcr 50 Mg PO BID) Continued Medications: Allopurinol (Zyloprim) 100 Mg Tab 100 MG PO MWF Cholecalciferol (Vitamin D) 2,000 Unit Tab 1 TAB PO DAILY Dutasteride (Avodart) 0.5 Mg Cap 0.5 MG PO DAILY, CAP Ferrous Sulfate (Ferrous Sulfate) 325 Mg Tab 1 TAB PO BID for 30 Days Fluticasone Propionate (Nasal) (Flonase Allergy Relief) 50 Mcg/Act Spr 2 SPRAY MARIA ESTHER HS Isosorbide Mononitrate (Isosorbide Mononitrate) 20 Mg Tab 20 MG PO QAM Loratadine (Claritin) 10 Mg Tab 10 MG PO DAILY, TAB Montelukast Sodium (Singulair) 10 Mg Tab 10 MG PO DAILY, TAB Nitroglycerin (Nitrostat) 0.4 Mg Tab 0.4 MG UT PRN, BTL Pantoprazole (Protonix) 40 Mg Tab 1 TAB PO BID for 30 Days, #60 TAB Ranitidine (Zantac) 150 Mg Tab 150 MG PO DAILY, TAB Simvastatin (Zocor) 10 Mg Tab 10 MG PO QPM, TAB Tamsulosin Hcl (Flomax) 0.4 Mg Cap 0.4 MG PO DAILY, CAP Admission Information HPI (per Admitting provider): 78-year-old male with PMH of Anemia, BPH, CAD, CKD stage 3, recently discharged on 07/07 for near syncope and GI bleed presents the ED for dizziness. Pt said that today while at [facility] he felt very dizzy, nausea, sweating associated with SOB. Pt said that he turned grewal and then pink for a few seconds. He said that he had a tight button collar in his neck. he said that he was very hot. Pt said that he usually has dizziness when he walks sometimes. As per ER physician, EMS said that when they placed pt on the monitor, he had another episode of dizziness and looked very pale. At that time there was a short pause noted on the monitor. When pt discharged last time cardiology recommended for patient to follow with PCP and his cardiology to arrange for a outpatient 14 day ZIO (or MCOT) for further evaluation of syncope and possible occult dysrhythmia. Pt said that since discharged, he has not been able to see his pcp or his cardiology. Pt said that he continues to have brown stools. He said that he cannot tell if the dark stool is from the iron supplement or bleeding. He had colonoscopy and EGD done in [place] few weeks ago. He said that he received a call on Friday from to schedule for a capsule endoscopy. He had guaiac done in the ER that was lightly positive as per ER attending. Denies any chest pain, palpitation, abdominal pain, and back pain. Physical Exam (per Admitting): General Appearance: WD/WN, no apparent distress Head: normocephalic, atraumatic Eyes: PERRL, EOMI ENT: normal ENT inspection Neck: no JVD, trachea midline Respiratory/Chest: chest non-tender, no respiratory distress, no accessory muscle use Cardiovascular: regular rate, rhythm, no JVD Abdomen/GI: normal bowel sounds, non tender Back: no CVA tenderness Extremities/Musculoskelatal: no calf tenderness Neurologic/Psych: no motor/sensory deficits, alert, normal mood/affect Skin: warm/dry, no rash Hospital Course DIZZINESS Present on admission with dizziness, Nausea associated with SOB Mostly Vasovagal/ orthostatic hypotension Tele monitor showed frequent PVC Strip from EMS showed a quick second pause as per ER ( seems to be due to PVC) Repeat EKG this morning showed PVC Positive orthostatic Currently asymptomatic Carotid doppler showed findings suggesting less than 50% stenosis of the proximal left internal carotid artery and no significant stenosis in the right carotid arteries. Continue to hold flomax due to positive orthostatic Cardiology on board 07/20 Dizziness resolved No orthostatic VS today Advised pt to move slowly when you are going from a sitting to standing position to avoid falling. Fall precaution Echo done on 07/06 * Ejection Fraction = 60-65%. * There is mild concentric left ventricular hypertrophy. * The left ventricular wall motion is normal. * Aortic valve sclerosis moderate, without significant aortic valvular stenosis. * Trace aortic regurgitation. * There is mild mitral regurgitation. * There is mild tricuspid regurgitation. * The estimated systolic PAP is 40mmHg. Frequent PVC/Bradycardia Tele monitor and EKG showed PVC Continue metoprolol 25mg BID Stable HX GI BLEED Had EGD and colonoscopy at [facility] approximately 6 -8 weeks ago Hemoglobin 9.3 on admission, improved when discharge on 8.6 Hemoglobin improves to 9.7 today has been off of baby aspirin Continue PPI Had EGD done on last admission that showed No sigs of bleeding, mild gastritis in the region of hiatal hernia, but not to the extent of makayla Fer's erosions. Received call last week for outpatient capsule endoscopy Advised pt to call to schedule the capsule endoscopy Continue monitor hemoglobin CKD 3 Creatine on admission 2.04 Creatine baseline btw 1.7 to 1.9 Received gently hydration Creatine today 2.06 Avoid nephrotoxic agents Monitor BP HYPERTENSION Positive orthostatic on admission Continue isosorbide and metoprolol 25mg Stable BPH On dutasteride Will resume flomax on discharge but if symptoms reoccur please d/c flomax GOUT Continue allopurinol DVT PROPHYLAXIS SCDs due to recent admission for GI bleeding CODE STATUS FULL CODE DISPOSITION Follow up with Dr. Jasso on 07/23 (already had an appointment schedule) Total time spent on discharge = 35 minutes This includes examination of the patient, discharge planning, medication reconciliation, and communication with other providers. Discharge Instructions Discharge Instructions Date of Service Jul 20, 2018. Admission Reason for Admission: Dizziness Discharge Discharge Diagnosis / Problem: Dizziness Discharge Goals Goal(s): Decrease discomfort, Increase independence, Improve disease control Activity Recommendations Activity Limitations: resume your previous activity (as tolerated) . Instructions / Follow-Up Instructions / Follow-Up Please follow up with your primary care provider Dr. Jasso Follow up with your cardiology Dr. Corral. ( Call to schedule for the appointment) Gastroenterology to schedule for your capsule endoscopy Continue holding aspirin (your physician will advise you when to resume it) Avoid NSAIDs such as (Motrin, Aleve, Ibuprofen, Advil, Naproxen, Celebrex, Meloxicam, ...) Your cardiology or your primary care physician will need to arrange for outpatient 14 day ZIO (or MCOT) for further evaluation of syncope and possible occult dysrhythmia. Fall precaution Metoprolol decreased to 25mg twice a day If dizziness reoccurs, please hold the Flomax and inform your primary care physician about that Current Hospital Diet Patient's current hospital diet: AHA Diet (Heart Healthy) Pending Studies Studies pending at discharge: no Medical Emergencies . Who to Call and When: Medical Emergencies: If at any time you feel your situation is an emergency, please call 911 immediately. . Non-Emergent Contact Non-Emergency issues call your: Primary Care Provider, Toe Closing Machine Tender, [place] Feather Trimmer Call Non-Emergent contact if: you have any medication questions . . "Provider Documentation" section prepared by Nano Alfaro. . Additional Copies To Lexis Jasso M.D.
== END 2018-07-20 12:50 | disposition home health service (06) | DRG 312 ==
LOC: EDBD 12:13 → C.EDC 12:15 → C.MED 17:09 → ENRESERV 17:38
PROVIDERS: ADMIT Internal Medicine; ATTEND Internal Medicine
DX: I95.1 Orthostatic hypotension (principal); N40.0 Benign prostatic hyperplasia without lower urinary tract symptoms; I25.10 Atherosclerotic heart disease of native coronary artery without angina pectoris; M10.9 Gout, unspecified; I12.9 Hypertensive chronic kidney disease with stage 1 through stage 4 chronic kidney disease, or unspecified chronic kidney disease; N18.3 Chronic kidney disease, stage 3 (moderate); I49.3 Ventricular premature depolarization; R00.1 Bradycardia, unspecified; Z79.899 Other long term (current) drug therapy; Z87.891 Personal history of nicotine dependence; Z88.0 Allergy status to penicillin

== ENCOUNTER 2022-07-25 08:59 | Inpatient (IN) ==
[2022-07-25] MEDS ORDERED: NITROGLYCERIN 2% OINTMENT 30GM TUBE EXT STA (09:25)
--- NOTE | 2022-07-25 09:32 | Emergency Department Note ---
Impression & Plan Precordial chest pain, Anemia, Acute GI bleeding, Elevated troponin ED Provider Note NAME: RENE MAK AGE: 82 SEX: M : 1940 ARRIVES VIA: Ambulance INFORMANT: [Patient][ems] ED PROVIDER(S): [Rylan Mar MD] CHIEF COMPLAINT: Cardiac assessment HISTORY OF PRESENT ILLNESS: Patient is an 82-year-old male who presents to the ER with intermittent chest pain for weeks. Today, he woke up around 2 hours ago with chest discomfort. He felt something in his left arm as well. The pain was a 5/10. He was not short of breath. No sweating or nausea. Patient called EMS. On the way to our hospital, he was given 1 nitroglycerin and 3 baby aspirin, his pain is now gone. Patient does have a cardiac history. He had 4 stents placed around 10 years ago. He has a history of lung cancer as well as AAA. The patient does have nitroglycerin prescribed but has not used any over the last few weeks. There has been no cough or congestion. He has been in baseline health otherwise except for the chest discomfort. 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 Of note, on his second interview, the patient admitted to about 2 weeks or so of black stool. REVIEW OF SYSTEMS: See HPI for pertinent positives and negatives. A total of ten systems were reviewed and were otherwise negative. PMHx/PSHx: See Below SOCIAL HISTORY: See Below. PHYSICAL EXAM: GENERAL: Patient is in no acute distress. HEENT: No acute trauma, normocephalic atraumatic, mucous membranes moist, no nasal congestion, no scleral icterus. NECK: No stridor, no adenopathy, no meningismus, trachea is midline. LUNGS: Somewhat diminished breath sounds with occasional crackles at the right base, no respiratory distress, no wheezing. HEART: Regular rhythm with an occasional extra beat, subtle systolic murmur, normal rate. ABDOMEN: Soft, nontender, bowel sounds positive, no peritonitis. EXTREMITIES: No cyanosis or edema, full range of motion of all the joints without pain or difficulty, no signs for acute trauma. NEUROLOGIC: Oriented x 3, no acute motor or sensory deficits, no focal weakness. SKIN: No rash, no jaundice, no diaphoresis. Rectal: Black stool, heme positive. DIFFERENTIAL DIAGNOSIS: Cardiac ischemia, aortic dissection, pulmonary embolism, pneumothorax, pneumonia, pericarditis, myocarditis, esophageal rupture, GERD, cholecystitis, pancreatitis, musculoskeletal, as well as other pathologies. EMERGENCY DEPARTMENT COURSE/PROCEDURES: ECG: Indication was chest pain. The ECG shows a sinus rhythm with PVCs. There is some nonspecific ST change seen diffusely. There is no ST elevation. QTc is 460. Compared to an ECG from 02 September 2018, the number of PVCs has decreased. Continuous Cardiac Monitoring: An order was placed for continuous cardiac monitoring. The monitor shows a rate of 90 with sinus rhythm with PVCs. Critical Care Note: I have personally spent 41 minutes of critical care time in the direct management of this patient. This includes bedside care, interpretation of diagnostic studies, and testing, discussion with consultants, patient, and family members, and other required patient management activities. This 41 minutes is in excess of all separately billable procedures. MEDICAL DECISION MAKING: There is no leukocytosis. The patient is anemic with a hemoglobin of 7.6. I did perform a rectal exam, stool was black and heme positive. There was a normal platelet count. No coagulopathy. Creatinine was elevated but this appears baseline. No significant electrolyte abnormality in need of emergent correction. No concerning liver enzyme elevation. Troponin was elevated, this elevation could be secondary to cardiac ischemia versus demand mismatch. No evidence for pancreatitis. ECG showed a sinus rhythm with PVCs. There was some nonspecific ST change, no ST elevation. COVID test returned negative. Chest x-ray showed some chronic changes, no pneumonia or CHF. The patient was given nitroglycerin paste. He did receive IV Protonix. As he was experiencing chest pain with a low hemoglobin, I discussed a blood transfusion with him. He did consent. The appropriate consent paperwork was signed. 1 unit of packed red blood cells was ordered to be transfused here in the ED. The patient is in need of a hospital stay, certainly, the anemia could be le ading to his chest discomfort/angina. Further cardiac work-up and GI work-ups are warranted. I did speak with the patient and case management. The on-call hospitalist was consulted. Past Med/Surg History Medical History Anemia Arthritis BPH (benign prostatic hyperplasia) CAD (coronary atherosclerotic disease) "S/P LAD stent" Chronic kidney disease ? STAGE GERD (gastroesophageal reflux disease) Hearing deficit HTN (hypertension) Hx of cancer of lung Hx of gout Poor historian Stomach ulcer REASON FOR EGD TIA (transient ischemic attack) X 2 "WITHIN THE LAST 2 YEARS" NONE IN THE LAST 3 MONTHS Surgical History H/O aortic aneurysm repair 2013 AT [facility] H/O heart artery stent X 4 (? DATE "LAST 2 STENTS PLACED AT [facility]") History of colonoscopy History of left-sided carotid endarterectomy History of tonsillectomy and adenoidectomy History of tooth extraction S/P lobectomy of lung Family History (Updated 07/25/22 @ 11:53 by Michelle Gill PA-C) Other No family history of adverse response to anesthesia No significant family history Social History Smoking Status: Former smoker Smoking End Date: 30 years ago; Second Hand Exposure: Yes ( A CHILD/PARENTS SMOKED); Hx Alcohol Use: No Hx Substance Use: No Preferred Language: Yakut Communication Ability: Effective Sfdc Consultant Required: No Beliefs That Will Affect Care: None Current Living Situation: Alone Current Living Situation Comment: 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 How many Children do You have: 1 Feels Safe at Home: Yes Safety Concerns: Feels Safe At This Time Assistive Devices: None Allergies Allergies Allergy/AdvReac Type Severity Reaction Status Date / Time Penicillins Allergy Mild Rash Verified 04/08/22 14:45 Home Meds Home Medications Medication Instructions Recorded Confirmed loratadine 10 mg tablet 10 mg PO QAM #0 tabs 10/22/17 07/25/22 montelukast 10 mg tablet 10 mg PO QPM #0 tabs 10/22/17 07/25/22 metoprolol tartrate 25 mg tablet 50 mg PO BID 08/03/18 07/25/22 amlodipine 5 mg tablet 10 mg PO QAM 09/02/18 07/25/22 allopurinol 100 mg tablet 100 mg PO 3XWK 08/24/21 07/25/22 aspirin 81 mg tablet,delayed 81 mg PO DAILY 08/24/21 07/25/22 release atorvastatin 10 mg tablet 10 mg PO DAILY 08/24/21 07/25/22 cholecalciferol (vitamin D3) 50 50 mcg PO QAM 08/24/21 07/25/22 mcg (2,000 unit) tablet (Vitamin D3) clopidogrel 75 mg tablet 75 mg PO DAILY 08/24/21 07/25/22 famotidine 20 mg tablet 20 mg PO BID 08/24/21 07/25/22 isosorbide mononitrate 60 mg 60 mg PO DAILY 08/24/21 07/25/22 tablet,extended release 24 hr pantoprazole 40 mg tablet,delayed 40 mg PO DAILY 07/25/22 07/25/22 release Previous Rx's Medication Instructions Recorded dutasteride 0.5 mg capsule 0.5 mg PO HS #90 caps 08/20/21 Results & Data (ED) Vital Signs Vital Signs - 24 hr 07/25/22 08:51 07/25/22 08:51 07/25/22 09:30 Temperature 36.7 C Temperature Source Oral Pulse Rate 90 Pulse Rate from SpO2 Sensor Respiratory Rate 16 Respiratory Effort / Characteristics Non-Labored Spontaneous Accessory Muscle Use Non-Labored Spontaneous Respiratory Depth Normal Normal Blood Pressure 161/93 H 141/79 H Blood Pressure Mean 115 99 Pulse Oximetry 98 Oxygen Delivery Method Room Air Room Air Sepsis Recent Fever Within 48 Hours No Sepsis New/Unexplained Change in Mental Status N/A Sepsis Action Taken by Nursing No Action Required 07/25/22 09:30 07/25/22 10:00 07/25/22 10:00 Temperature Temperature Source Pulse Rate 87 90 Pulse Rate from SpO2 Sensor 87 90 Respiratory Rate 17 17 Respiratory Effort / Characteristics Respiratory Depth Blood Pressure 144/87 H Blood Pressure Mean 106 Pulse Oximetry 95 97 Oxygen Delivery Method Sepsis Recent Fever Within 48 Hours Sepsis New/Unexplained Change in Mental Status Sepsis Action Taken by Nursing 07/25/22 10:30 07/25/22 10:30 Temperature Temperature Source Pulse Rate 86 Pulse Rate from SpO2 Sensor Respiratory Rate 16 Respiratory Effort / Characteristics Respiratory Depth Blood Pressure 146/96 H Blood Pressure Mean 112 Pulse Oximetry Oxygen Delivery Method Sepsis Recent Fever Within 48 Hours Sepsis New/Unexplained Change in Mental Status Sepsis Action Taken by Penitentiary Medications Current Medication List: was personally reviewed by me Laboratory Data Attestation: I reviewed the patient's lab results. Result diagrams: 07/25/22 09:15 07/25/22 09:58 Lab Results 07/25/22 07/25/22 07/25/22 Range/Units 09:15 09:15 09:35 WBC 6.04 (4.8-10.8) K/ul RBC 2.35 L (4.63-6.08) M/uL Hgb 7.6 L (14.0-18.0) g/dl Hct 23.3 L (40.1-51.0) % MCV 99.1 (80.0-100.0) fL MCH 32.3 (25.0-34.0) pg MCHC 32.6 (32.0-36.0) g/dL RDW Std Deviation 49.9 H (36.4-46.3) fL RDW Coeff of Serene 14.2 (11.5-14.5) % Plt Count 195 (130-400) K/uL MPV 10.3 (9.4-12.4) fL Immature Gran % (Auto) 0.8 % Neut % (Auto) 73.2 % Lymph % (Auto) 13.4 % Tyrrell % (Auto) 7.6 % Eos % (Auto) 4.5 % Baso % (Auto) 0.5 % Neut # (Auto) 4.42 (1.4-6.5) K/uL Lymph # (Auto) 0.81 L (1.2-3.4) K/uL Tyrrell # (Auto) 0.46 (0.24-0.82) K/uL Eos # (Auto) 0.27 (0-0.50) K/uL Baso # (Auto) 0.03 (0-0.2) K/uL Immature Gran # (Auto) 0.05 H (0.00-0.02) K/uL RBC Morphology Unremarkable PT (9.0-12.0) Seconds INR (0.9-1.1) APTT (21.0-31.0) Seconds PTT Ratio Sodium Cancelled Potassium Cancelled Chloride Cancelled Carbon Dioxide Cancelled Anion Gap Cancelled BUN Cancelled Creatinine Cancelled Est Cr Clr Drug Dosing Cancelled Est GFR ( Amer) Cancelled Est GFR (Non-Af Amer) Cancelled BUN/Creatinine Ratio Cancelled Glucose Cancelled Calcium Cancelled Magnesium Cancelled Total Bilirubin Cancelled AST Cancelled ALT Cancelled Alkaline Phosphatase Cancelled Troponin I High Sens Cancelled Total Protein Cancelled Albumin Cancelled Globulin Cancelled Albumin/Globulin Ratio Cancelled Lipase Cancelled SARS-CoV-2, RNA, NAAT NEGATIVE (NEGATIVE) Blood Type Antibody Screen Crossmatch 07/25/22 07/25/22 07/25/22 Range/Units 09:53 09:58 09:58 WBC (4.8-10.8) K/ul RBC (4.63-6.08) M/uL Hgb (14.0-18.0) g/dl Hct (40.1-51.0) % MCV (80.0-100.0) fL MCH (25.0-34.0) pg MCHC (32.0-36.0) g/dL RDW Std Deviation (36.4-46.3) fL RDW Coeff of Serene (11.5-14.5) % Plt Count (130-400) K/uL MPV (9.4-12.4) fL Immature Gran % (Auto) % Neut % (Auto) % Lymph % (Auto) % Tyrrell % (Auto) % Eos % (Auto) % Baso % (Auto) % Neut # (Auto) (1.4-6.5) K/uL Lymph # (Auto) (1.2-3.4) K/uL Tyrrell # (Auto) (0.24-0.82) K/uL Eos # (Auto) (0-0.50) K/uL Baso # (Auto) (0-0.2) K/uL Immature Gran # (Auto) (0.00-0.02) K/uL RBC Morphology PT 10.6 (9.0-12.0) Seconds INR 1.0 (0.9-1.1) APTT 26.3 (21.0-31.0) Seconds PTT Ratio 1.0 Sodium 140 Potassium 4.3 Chloride 109 H Carbon Dioxide 25 Anion Gap 6 BUN 31 H Creatinine 1.80 H Est Cr Clr Drug Dosing 29.1 Est GFR ( Amer) 39.5 Est GFR (Non-Af Amer) 34.0 BUN/Creatinine Ratio 17.2 Glucose 108 H Calcium 9.5 Magnesium 2.0 Total Bilirubin 0.3 AST 12 L ALT 7 Alkaline Phosphatase 57 Troponin I High Sens 20.7 H Total Protein 6.7 Albumin 3.5 Globulin 3.2 Albumin/Globulin Ratio 1.1 Lipase 33 SARS-CoV-2, RNA, NAAT (NEGATIVE) Blood Type O Positive Antibody Screen NEGATIVE Crossmatch See Detail Administered Medications Pantoprazole Sodium 40 mg/ (Dextrose) 100 mls @ 20 mls/hr IV Q5H ALEX Stop: 08/24/22 12:29 Last Admin: 07/25/22 12:47 Dose: 8 mg/hr, 20 mls/hr Documented By: YANNI Sodium Chloride (Nss 1000ml) 1,000 mls @ 70 mls/hr IV .[id number] ALEX Stop: 07/26/22 00:42 Last Infusion: 07/25/22 15:54 Dose: 70 mls/hr Documented By: Admin: 07/25/22 12:48 Dose: 125 mls/hr Documented By: YANNI Miscellaneous (Avodart-Order Awaiting Action) 1 each N/A QS ALEX Stop: 08/24/22 15:59 Last Admin: 07/25/22 15:52 Dose: Not Given Documented By: YANNI Discontinued Medications Pantoprazole Sodium 80 mg/ (Dextrose) 100 mls @ 400 mls/hr IV ONE STA Stop: 07/25/22 10:22 Last Infusion: 07/25/22 10:55 Dose: 0 mls/hr Documented By: Admin: 07/25/22 10:40 Dose: 400 mls/hr Documented By: STORMY Nitroglycerin (Nitroglycerin 2% Ointment 30gm Tube) 1 inch EXT NOW STA Stop: 07/25/22 09:26 Last Admin: 07/25/22 09:38 Dose: 1 inch Documented By: STORMY Imaging Data Radiologist's Impression: Chest X-Ray 07/25/22 09:26 XR chest 1V portable CLINICAL HISTORY: Atypical chest pain. COMPARISON STUDY: Chest CT August 10, 2014. Chest radiograph August 03, 2018. FINDINGS: Postoperative findings within left hemithorax are unchanged with volume loss. Blunting of the left costophrenic angle is chronic. There is no pneumothorax. Cardiomegaly is unchanged. No evidence for pulmonary edema. A hiatal hernia is noted. Old left sixth rib deformity is present. Surgical clips within the left neck are present. IMPRESSION: No acute cardiopulmonary findings. No change in appearance of the chest. ACT 112: Negative or not required by law. Electronically signed by: Blair Robles M.D. 07/25/2022 10:03 AM Discharge Plan Visit Data Chief Complaint: Cardiac Assessment ED Provider: Rylan Mar Discharge Problem: Precordial chest pain, Anemia, Acute GI bleeding, Elevated troponin Patient Disposition: Admitted As Inpatient Condition: Fair Discharge Instructions Interventions: ED Discharge Assessment Last Done: 07/25/22 11:36
[2022-07-25 09:50] LABS: Basophils # (auto) 0.03 K/uL (0-0.2); Basophils % (auto) 0.5 %; Eosinophils # (auto) 0.27 K/uL (0-0.50); Eosinophils % (auto) 4.5 %; Hematocrit (blood only) 23.3 % (40.1-51.0); Hemoglobin 7.6 g/dl (14.0-18.0); Immature Granulocytes # (auto) 0.05 K/uL (0.00-0.02); Immature Granulocytes % (auto) 0.8 %; Lymphocytes # (auto) 0.81 K/uL (1.2-3.4); Lymphocytes % (auto) 13.4 %; Mean Corpuscular Hemoglobin 32.3 pg (25.0-34.0); Mean Corpuscular Hgb Conc 32.6 g/dL (32.0-36.0); Mean Corpuscular Volume 99.1 fL (80.0-100.0); Mean Platelet Volume 10.3 fL (9.4-12.4); Monocytes # (auto) 0.46 K/uL (0.24-0.82); Monocytes % (auto) 7.6 %; Neutrophils # (auto) 4.42 K/uL (1.4-6.5); Neutrophils % (auto) 73.2 %; Platelet Count 195 K/uL (130-400); RDW Coefficient of Variation 14.2 % (11.5-14.5); RDW Standard Deviation 49.9 fL (36.4-46.3); Red Blood Count 2.35 M/uL (4.63-6.08); White Blood Count 6.04 K/ul (4.8-10.8)
--- NOTE | 2022-07-25 10:05 | XRay Report ---
XR chest 1V portable CLINICAL HISTORY: Atypical chest pain. COMPARISON STUDY: Chest CT August 10, 2014. Chest radiograph August 03, 2018. FINDINGS: Postoperative findings within left hemithorax are unchanged with volume loss. Blunting of t he left costophrenic angle is chronic. There is no pneumothorax. Cardiomegaly is unchanged. No eviden ce for pulmonary edema. A hiatal hernia is noted. Old left sixth rib deformity is present. Surgical c lips within the left neck are present. IMPRESSION: No acute cardiopulmonary findings. No change in appearance of the chest. ACT 112: Negative or not required by law. Electronically signed by: Blair Robles M.D. 07/25/2022 10:03 AM
[2022-07-25] MEDS ORDERED: SODIUM CHLORIDE 0.9% 250 ML IV PRN ×2 (10:08→10:29)
[2022-07-25] MEDS ORDERED: PANTOprazole 80 MG in DEXTROSE 5% 100 ML IV STA (10:08)
[2022-07-25 10:15] LABS: RBC Morphology Unremarkable
--- NOTE | 2022-07-25 10:25 | History & Physical Report ---
Date of Service July 25, 2022 Assessment & Plan (1) GI bleed: Plan: - Admit to tele - Concern for GI bleed with hemoglobin dropped from 11-7.6, start IV pantoprazole in the ER, will continue with Protonix gtt for now - Consult GI, previously has followed with Dr. Conner for history of EGD - Likely that GI bleed is causing chest pain/ischemia but pt also has hx of moderate to large hiatal hernia ? friction exacerbating pain - discussed with GI - appreciate - H&H q6H - Type and cross, blood consent obtained by ER, trend CBC, transfuse 1 unit PRBCs now, maintain Hgb > 8 with CAD - Holding plavix with acute GI bleed, cont baby aspirin (2) Chest pain: (3) CAD (coronary atherosclerotic disease): Plan: - Hx of 2 vessel disease with LAD and RCA s/p stenting. Follows with [facility] as outpatient - Trend cardiac biomarkers, initial set 20.7, trending Q6H x 3 more sets - EKG reviewed without ST wave changes or signs of ischemia, looks similar to previous EKG - Check 2 D echo - Consult cardiology - discussed with Dr. Posey - Holding BP meds, plavix secondary to acute GI bleed as above. Can resume if improvement/stabilization of hgb/hct, likely elevated BP with hypovolemia s econdary to blood loss, monitor, appreciate cardiology recs. - Will continue baby aspirin since on pantoprazole - PT/OT consulted (4) HTN (hypertension): Plan: - Will hold BP medications today and resume tomorrow. Elevated Bp of 150s/110s likely due to hypovolemia currently, scheduled for blood transfusion today. (5) HLD (hyperlipidemia): Plan: - cont statin therapy (6) AAA (abdominal aortic aneurysm): Plan: - Recently saw outpatient vascular surgeon, Dr. Huffman, who he was referred to by [facility]. - Recent CTA abd/pelvis shows 4.1x5.5 cm AAA s/p repair on 07/01/22 and there were no plans other than to watch it at this time per pt - shows occlusion fo proximal inferior mesenteric arter with distal reconstitution, multifocal stenosis of AA and iliac art, left common iliac artery has an aneurysmal dilation - Will check CTA abd/pelvis stat to r/o any change in AAA- start NSS x 1 bag to hydrate with giving contrast (7) GERD (gastroesophageal reflux disease): Plan: - Continue protonix IV BID for now, prior to hospitalization was on both pantoprazole and famotidine - GI consult as above DVT ppx: - teds, scd, holding Plavix secondary to GI bleed CODE: Code Dispo: From home, likely to remain in the hospital x 1-2 days, from home, lives by self (8) Anemia: History of Present Illness Chief Complaint: Chest pain Primary Care Provider: Lexis Jasso This is an 82 yo M with PMhx of CAD s/p remote PCI of the mid LAD (stented and has 50% in stent stenosis), hx of stent in the RCA s/p total occlusion, mitral regurg, HTN, HLD, who follows with [facility] with Dr. Zhong. He presented to the hospital today with acute onset of worsening chest pain which radiating into the left arm. For the past 2 weeks he has awoken in the morning to some substernal chest pain, which has been relieved with taking tums. He reports burping several times but then the pain has typically resolved. This morning he awoke to the substernal chest pain and took 2 Tums, however did not relieve the pain. He rated pain as 5/10 and radiated into his left arm. He reports being left-handed and therefore cannot confirm that this was a new pain or if this was a sore pain from doing regular ADLs. He pressed his life alert button and EMS presented to his home, who then administered aspirin and nitro x1 and pain resolved. Currently he is chest pain-free. He admits to some associated shortness of breath but this is a chronic issue for him, as he has history of remote lung cancer where he has had a partial lobectomy. In the past week he has had worsening shortness of breath with ambulation; prior to the recent hot spell with it being 90 degrees outside he was walking 1 mile per day, took the last week off, and upon walking about 0.25 miles he noticed he was significantly short of breath and needed to rest. He does not wear any oxygen at baseline. On further review he reports he has had some issues with GI bleeding in the past on and off and has previously been on iron supplementation but is not currently. Admits to having dark tarry stools for at least 1 week, and had his last bowel movement this morning. There is some bright pink on toilet paper with wiping. He typically is having 1 bowel movement daily. He has previously followed with [facility] gastroenterology but it has been about 1 year since then when he had an EGD. He cannot recall his last colonoscopy. Denies any lightheadedness, dizziness or recent falls. He uses a walking stick for ambulation assistance. Today was found to have hgb of 7.6 and HCT 23.2, where previously in Aug 2021 Hgb/Hct was 11.3/35/3. Previously the patient has followed with [facility] GI and had an EGD in August 2021 due to abdominal pain and was found to have a hiatal hernia. Social Hx: Pt is a of 8 years, in 2013. 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 Pt currently is working and takes one weekend off every month. Lives at home by himself, has a son and daughter in law who are both physicians. Allergies Allergy/AdvReac Type Severity Reaction Status Date / Time Penicillins Allergy Mild Rash Verified 04/08/22 14:45 Home Medications Medication Instructions Recorded Confirmed Type loratadine 10 mg tablet 10 mg PO QAM #0 tabs 10/22/17 07/25/22 History montelukast 10 mg tablet 10 mg PO QPM #0 tabs 10/22/17 07/25/22 History metoprolol tartrate 25 mg tablet 50 mg PO BID 08/03/18 07/25/22 History amlodipine 5 mg tablet 10 mg PO QAM 09/02/18 07/25/22 History dutasteride 0.5 mg capsule 0.5 mg PO HS #90 caps 08/20/21 07/25/22 Rx allopurinol 100 mg tablet 100 mg PO 3XWK 08/24/21 07/25/22 History aspirin 81 mg tablet,delayed 81 mg PO DAILY 08/24/21 07/25/22 History release atorvastatin 10 mg tablet 10 mg PO DAILY 08/24/21 07/25/22 History cholecalciferol (vitamin D3) 50 50 mcg PO QAM 08/24/21 07/25/22 History mcg (2,000 unit) tablet (Vitamin D3) clopidogrel 75 mg tablet 75 mg PO DAILY 08/24/21 07/25/22 History famotidine 20 mg tablet 20 mg PO BID 08/24/21 07/25/22 History isosorbide mononitrate 60 mg 60 mg PO DAILY 08/24/21 07/25/22 History tablet,extended release 24 hr pantoprazole 40 mg tablet,delayed 40 mg PO DAILY 07/25/22 07/25/22 History release Past Med/Surg History Medical History (Updated 07/25/22 @ 11:27 by Michelle Gill PA-C) Anemia Arthritis BPH (benign prostatic hyperplasia) CAD (coronary atherosclerotic disease) "S/P LAD stent" Chronic kidney disease ? STAGE GERD (gastroesophageal reflux disease) Hearing deficit HTN (hypertension) Hx of cancer of lung Hx of gout Poor historian Stomach ulcer REASON FOR EGD TIA (transient ischemic attack) X 2 "WITHIN THE LAST 2 YEARS" NONE IN THE LAST 3 MONTHS Surgical History H/O aortic aneurysm repair 2013 AT [facility] H/O heart artery stent X 4 (? DATE "LAST 2 STENTS PLACED AT [facility]") History of colonoscopy History of left-sided carotid endarterectomy History of tonsillectomy and adenoidectomy History of tooth extraction S/P lobectomy of lung Family History (Updated 07/25/22 @ 11:53 by Michelle Gill PA-C) Other No family history of adverse response to anesthesia No significant family history Social History Smoking Status: Former smoker Smoking End Date: 30 years ago; Second Hand Exposure: Yes ( A CHILD/PARENTS SMOKED); Hx Alcohol Use: No Hx Substance Use: No Preferred Language: American Communication Ability: Effective Bond Writer Required: No Beliefs That Will Affect Care: None Current Living Situation: Alone Current Living Situation Comment: 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 3X PER WEEK How many Children do You have: 1 Feels Safe at Home: Yes Safety Concerns: Feels Safe At This Time Assistive Devices: None Review of Systems Review of Systems: Constitutional: No fever, sweats or chills Eyes: No diplopia, no worsening or blurred vision ENT: normal hearing, no trouble swallowing Respiratory: No cough, sputum, dyspnea at rest, + dyspnea on exertion as per HPI Cardiovascular: + As per HPI, no current chest pain, tightness or palpitations Abdomen: As per HPI, + dark tarry bowel movements, some pink in bowel movements, no pain, nausea, vomiting, diarrhea or constipation Musculoskeletal: No joint pain, calf pain, swelling Neurologic: No weakness, numbness/tingling, or balance problems Psychiatric: No anxiety or depression Skin: No rash or itch Physical Exam Physical Exam: General: awake, alert, no apparent distress, + pallor Head: Normocephalic, atraumatic ENT: PERRL, EOMI, no pharyngeal exudate, mucous membranes moist Chest: Clear to auscultation, on room air, no adventitious breath sounds Cardiac: Pain is not reproducible with palpation on the chest wall, regular rate and rhythm, + soft systolic murmur, no JVD, normal peripheral pulses, good capillary refill Abdominal: NABS x 4 quadrants, soft, nondistended, nontender to palpation, no rebound or guarding Extremities: Normal inspection, no peripheral edema or erythema, calfs nontender to palpation Psych: Normal mood and affect Neuro: AAO x 3, strength intact bilaterally and rated 5/5, no motor deficits, speech is clear, no peripheral sensory deficits Results & Data Results & Data ([facility]) Vital Signs (Past 12 Hours) Vital Signs Temp Pulse Resp BP Pulse Ox O2 Del Method 07/25/22 08:51 36.7 C 90 16 161/93 H 98 Room Air 07/25/22 08:51 Room Air Laboratory Results 07/25/22 07/25/22 07/25/22 09:58 09:58 09:53 WBC RBC Hgb Hct MCV MCH MCHC RDW Std Deviation RDW Coeff of Serene Plt Count MPV Immature Gran % (Auto) Neut % (Auto) Lymph % (Auto) Branch % (Auto) Eos % (Auto) Baso % (Auto) Neut # (Auto) Lymph # (Auto) Branch # (Auto) Eos # (Auto) Baso # (Auto) Immature Gran # (Auto) RBC Morphology PT 10.6 INR 1.0 APTT 26.3 PTT Ratio 1.0 Sodium 140 Potassium 4.3 Chloride 109 H Carbon Dioxide 25 Anion Gap 6 BUN 31 H Creatinine 1.80 H Est Cr Clr Drug Dosing 29.1 Est GFR ( Amer) 39.5 Est GFR (Non-Af Amer) 34.0 BUN/Creatinine Ratio 17.2 Glucose 108 H Calcium 9.5 Magnesium 2.0 Total Bilirubin 0.3 AST 12 L ALT 7 Alkaline Phosphatase 57 Troponin I High Sens 20.7 H Total Protein 6.7 Albumin 3.5 Globulin 3.2 Albumin/Globulin Ratio 1.1 Lipase 33 SARS-CoV-2, RNA, NAAT Crossmatch See Detail 07/25/22 07/25/22 07/25/22 09:35 09:15 09:15 WBC 6.04 RBC 2.35 L Hgb 7.6 L Hct 23.3 L MCV 99.1 MCH 32.3 MCHC 32.6 RDW Std Deviation 49.9 H RDW Coeff of Serene 14.2 Plt Count 195 MPV 10.3 Immature Gran % (Auto) 0.8 Neut % (Auto) 73.2 Lymph % (Auto) 13.4 Branch % (Auto) 7.6 Eos % (Auto) 4.5 Baso % (Auto) 0.5 Neut # (Auto) 4.42 Lymph # (Auto) 0.81 L Branch # (Auto) 0.46 Eos # (Auto) 0.27 Baso # (Auto) 0.03 Immature Gran # (Auto) 0.05 H RBC Morphology Unremarkable PT INR APTT PTT Ratio Sodium Cancelled Potassium Cancelled Chloride Cancelled Carbon Dioxide Cancelled Anion Gap Cancelled BUN Cancelled Creatinine Cancelled Est Cr Clr Drug Dosing Cancelled Est GFR ( Amer) Cancelled Est GFR (Non-Af Amer) Cancelled BUN/Creatinine Ratio Cancelled Glucose Cancelled Calcium Cancelled Magnesium Cancelled Total Bilirubin Cancelled AST Cancelled ALT Cancelled Alkaline Phosphatase Cancelled Troponin I High Sens Cancelled Total Protein Cancelled Albumin Cancelled Globulin Cancelled Albumin/Globulin Ratio Cancelled Lipase Cancelled SARS-CoV-2, RNA, NAAT NEGATIVE Crossmatch Diagnostic Findings Chest X-Ray 07/25/22 09:26 XR chest 1V portable CLINICAL HISTORY: Atypical chest pain. COMPARISON STUDY: Chest CT August 10, 2014. Chest radiograph August 03, 2018. FINDINGS: Postoperative findings within left hemithorax are unchanged with volume loss. Blunting of the left costophrenic angle is chronic. There is no pneumothorax. Cardiomegaly is unchanged. No evidence for pulmonary edema. A hiatal hernia is noted. Old left sixth rib deformity is present. Surgical clips within the left neck are present. IMPRESSION: No acute cardiopulmonary findings. No change in appearance of the chest. ACT 112: Negative or not required by law. Electronically signed by: Blair Robles M.D. 07/25/2022 10:03 AM Code Status & VTE Plan Code Status Full code -discussed with the patient at bedside Supervising Physician Co-Signing Physician Notes 82-year-old male with PMH of CAD status post stents, mitral regurgitation, HTN, HLD presented to the hospital 07/25 with complaint of worsening chest pain since last 2 weeks HOME CARE RN, with radiation into left arm. Patient reports having chest pain on and off ongoing for the last 2 weeks and also reports having black stool for 1 to 2 weeks HOME CARE RN. Patient denies any NSAID intake. But he does appear to have some GI bleeding issues in the past on and off. Likely upper GI bleed, admitting hemoglobin 7.6, continue with pantoprazole IV, GI evaluated, n.p.o. midnight, likely scope tomorrow, hold antiplatelets. With chest pain, troponin minimally elevated at 20.7, trend troponins. Admitting EKG with no signs of acute ischemia. Cardiology consulted. Upon examination: GENERAL: Alert and oriented x3. NAD, on RA. HEENT: No pallor, no icterus. Pupils equal, round and reactive to light. Oral mucosa moist. NECK: No JVD, no neck masses. HEART: S1 and S2 heard. Regular rate and rhythm. + murmur, no gallop. RESPIRATORY SYSTEM: Normal AP diameter. No accessory muscle use. No wheezing, no crackles. ABDOMEN: Soft, bowel sounds present, nontender, no distention. CENTRAL NERVOUS SYSTEM: No facial droop. Speech is clear. Obeys simple commands. Moves extremities. EXTREMITIES: No edema, no erythema seen. I have seen and examined the patient and have discussed the case with the provider above. I agree with the assessment and plan as stated.
[2022-07-25 10:35] LABS: Partial Thromboplastin Time 26.3 Seconds (21.0-31.0); Prothrombin Time 10.6 Seconds (9.0-12.0)
[2022-07-25 10:46] LABS: Albumin Globulin Ratio 1.1 (0.9-2); Albumin Level 3.5 gm/dl (3.4-5.0); BUN Creatinine Ratio 17.2 (10-20); Bilirubin,Total 0.3 mg/dl (0.2-1.0); Calcium 9.5 mg/dl (8.5-10.1); Creatinine Clr Calc Pharmacy 29.1 ml/min; Est GFR (African American) 39.5 ml/min; Globulin 3.2 gm/dl (2.5-4.0); Potassium 4.3 mmol/L (3.5-5.1); Total Protein 6.7 gm/dl (6.0-8.3)
[2022-07-25 10:51] LABS: Troponin I High Sensitivity 20.7 pg/ml (0-20)
[2022-07-25] MEDS ORDERED: PANTOPRAZOLE BOLUS/DRIP 1 EACH IV STA (12:12)
[2022-07-25] MEDS ORDERED: ACETAMINOPHEN 325 MG TAB PO PRN (12:12)
[2022-07-25] MEDS ORDERED: ONDANSETRON INJ 2 MG/ML 2 ML VIAL IV PRN (12:12)
[2022-07-25] MEDS ORDERED: SODIUM CHLORIDE 0.9% 1000ML 1,000 ML IV SCH (12:15)
[2022-07-25] MEDS: PANTOprazole 40 MG in DEXTROSE 5% 100 ML IV SCH ×3 (12:47→22:47)
--- NOTE | 2022-07-25 13:24 | Gastrointestinal Consultation ---
Date of Consultation July 25, 2022 Assessment & Plan (1) Chest pain: (2) Anemia: Pt is a 82 yo male who presented w CP symptoms relieved w ASA and Nitro though wo acute changes in his EKG and Troponin wo significant elevation. He was found to be anemic w c/o black stools. He had hx of large paraesophageal hernia. Currently also on ASA and Plavix for hx of CAD. Suspect possible Fer's erosion, PUD, AVMs. - CL; NPO after midnight - EGD on 07/26 - PPI bolus and gtt - PRBC transfusion, monitor blood ct and repeat transfusion prn - Recommend repeating CTA to re-eval L iliac artery dissection Supervising Physician Co-Signing Physician Notes I saw and evaluated the patient. We were asked to see the patient with anemia and regular Showed signs of melena. The patient's history is somewhat complicated given her vascular history in addition to a large paraesophageal hernia. Patient denies having hematemesis or bright red blood per rectum. physical examination. Elderly appearing male in no obvious distress Impression: Patient with recurrent Plan, given all his medical history the patient could have a number of etiologies to include arteriovenous malformations, Fer's erosions from his hiatal hernia or perhaps even peptic ulcer disease. Plan hold Anticoagulation and antiplatelet agents agree with transfusion Continue Protonix Endoscopy planned for tomorrow (after trasnfusion and resusitation) History of Present Illness Reason for Consultation: Anemia, GI bleed Requesting Physician: Dr. Kathy Langston Attending Physician: Dr. Jill Vasquez History of Present Illness Pt is a 82 yo male w hx of CAD, AAA repair, GERD, paraesophageal hernia, TIA who presented today w c/o chest pain. He had been having symptoms for days, and usually CP relieved w TUMs. However CP persist this AM despite him taking TUMs. He's not sure if he's having the pain radiating down L arm or not, since he's left handed. He then pressed life alert button, when EMS arrived, given ASA and Nitro, which relieved CP. He denies associated abd pain, n/v. Has intermittent BRBPR which he relates to hemorrhoids, but noticed in the last few days stools are black in color. He is on ASA and Plavix. Denies regular uses of NSAIDs, though took Advil 2 tabs this AM. On eval, he's found to be anemic w H/H 7.6/23 (baseline Hgb 11-13). Normal coag function. BUN/Cr up though at baseline. 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 He's had EGDs in 2017 and 2020 w findings of large paraesophageal hernia. Allergies Allergy/AdvReac Type Severity Reaction Status Date / Time Penicillins Allergy Mild Rash Verified 04/08/22 14:45 Home Medications Medication Instructions Recorded Confirmed Type loratadine 10 mg tablet 10 mg PO QAM #0 tabs 10/22/17 07/25/22 History montelukast 10 mg tablet 10 mg PO QPM #0 tabs 10/22/17 07/25/22 History metoprolol tartrate 25 mg tablet 50 mg PO BID 08/03/18 07/25/22 History amlodipine 5 mg tablet 10 mg PO QAM 09/02/18 07/25/22 History dutasteride 0.5 mg capsule 0.5 mg PO HS #90 caps 08/20/21 07/25/22 Rx allopurinol 100 mg tablet 100 mg PO 3XWK 08/24/21 07/25/22 History aspirin 81 mg tablet,delayed 81 mg PO DAILY 08/24/21 07/25/22 History release atorvastatin 10 mg tablet 10 mg PO DAILY 08/24/21 07/25/22 History cholecalciferol (vitamin D3) 50 50 mcg PO QAM 08/24/21 07/25/22 History mcg (2,000 unit) tablet (Vitamin D3) clopidogrel 75 mg tablet 75 mg PO DAILY 08/24/21 07/25/22 History famotidine 20 mg tablet 20 mg PO BID 08/24/21 07/25/22 History isosorbide mononitrate 60 mg 60 mg PO DAILY 08/24/21 07/25/22 History tablet,extended release 24 hr pantoprazole 40 mg tablet,delayed 40 mg PO DAILY 07/25/22 07/25/22 History release Patient History Medical History (Updated 07/25/22 @ 11:27 by Michelleshahla Gill PA-C) Anemia Arthritis BPH (benign prostatic hyperplasia) CAD (coronary atherosclerotic disease) "S/P LAD stent" Chronic kidney disease ? STAGE GERD (gastroesophageal reflux disease) Hearing deficit HTN (hypertension) Hx of cancer of lung Hx of gout Poor historian Stomach ulcer REASON FOR EGD TIA (transient ischemic attack) X 2 "WITHIN THE LAST 2 YEARS" NONE IN THE LAST 3 MONTHS Surgical History H/O aortic aneurysm repair 2013 AT [facility] H/O heart artery stent X 4 (? DATE "LAST 2 STENTS PLACED AT [facility]") History of colonoscopy History of left-sided carotid endarterectomy History of tonsillectomy and adenoidectomy History of tooth extraction S/P lobectomy of lung Family History (Updated 07/25/22 @ 11:53 by Michelle Gill PA-C) Other No family history of adverse response to anesthesia No significant family history Social History Smoking Status: Former smoker Smoking End Date: 30 years ago; Second Hand Exposure: Yes ( A CHILD/PARENTS SMOKED); Hx Alcohol Use: No Hx Substance Use: No Preferred Language: Polish Communication Ability: Effective Trouble Lineman Required: No Beliefs That Will Affect Care: None Current Living Situation: Alone Current Living Situation Comment: 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 PER 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 Feels Safe at Home: Yes Safety Concerns: Feels Safe At This Time Assistive Devices: Cane, Glasses and Hearing Aid - Bilateral Review of Systems Review of Systems: All systems reviewed & are unremarkable except as noted in HPI & below Physical Exam Constitutional: WD/WN, vitals as above well groomed, cooperative and comfortable Eyes: PERRL, conjunctivae normal, anicteric sclerae ENMT: external ear and nose normal, oropharynx normal Respiratory: normal respiratory effort, lungs clear to auscultation Cardiovascular: RRR, no murmur, no edema Gastrointestinal (Abdomen): normal bowel sounds, soft, nontender, no hepatosp lenomegaly Skin: no rashes, warm and dry no jaundice Psychiatric: A+Ox3, euthymic affect Lymphatic: no lymphedema Results & Data ([facility]) Vital Signs (Past 12 Hours) Vital Signs Temp Pulse Pulse Resp BP Pulse Ox O2 Del Method 07/25/22 12:32 36.5 C 95 H 20 168/83 H 94 07/25/22 11:36 84 14 117/93 96 Room Air 07/25/22 11:22 Room Air 07/25/22 11:22 86 16 97 Room Air 07/25/22 11:00 89 15 07/25/22 11:00 156/110 H 07/25/22 10:30 86 16 07/25/22 10:30 146/96 H 07/25/22 10:00 90 17 97 07/25/22 10:00 144/87 H 07/25/22 09:30 87 17 95 07/25/22 09:30 141/79 H 07/25/22 08:51 36.7 C 90 16 161/93 H 98 Room Air 07/25/22 08:51 Room Air
--- NOTE | 2022-07-25 14:02 | Cardiology Consultation ---
Date of Consultation July 25, 2022 Assessment & Plan (1) Chest pain: (2) Anemia: (3) GI bleed: (4) GERD (gastroesophageal reflux disease): (5) AAA (abdominal aortic aneurysm): (6) HLD (hyperlipidemia): (7) CAD (coronary atherosclerotic disease): (8) TIA (transient ischemic attack): Plan Patient is a complex 82-year-old male with medical issues as outlined. Include chronic stable ischemic heart disease, atherosclerotic carotid disease on dual antiplatelet therapy due to TIAs, abdominal aortic aneurysm status postsurgical repair with proximal to prior repair persistent abdominal aneurysm. Patient on guideline directed optimal medical regimen at baseline Patient carries a history of past anemia, paraesophageal hernia Presents now with signs and symptoms of abdominal and chest discomfort relieved initially by antacids now persistent. Laboratory studies reflect significantly reduced hemoglobin of 7.6. EKGs do not reflect acute ischemia and initial troponin upper limits of normal.. History and presentation findings are not suggestive of acute coronary syndrome although patient at risk given diffuse vascular disease. No acute abdominal or back pain or tenderness to palpation currently CTA of the abdomen pending. Aneurysm evaluation by CAT scan May 2022 and July 01, 2022. We will compare to current study GI evaluation with endoscopy planned Will hold aspirin and clopidogrel acutely. May consider use of single agent antiplatelet therapy as course progresses. Would choose clopidogrel over aspirin given stroke benefits, reduced GI bleeding. Continue all other cardiac medications and antihypertensives Follow renal function closely given contrast administration planned, CKD. Patient to receive hydration as well as blood transfusion will need to follow volume status closely as well Cardiology will follow as clinical course progresses. Appreciate GI evaluation History of Present Illness Reason for Consultation: Chest and abdominal pain, anemia Requesting Physician: Dr. Langston Attending Physician: Kathy Langston MD History of Present Illness AbdominalPatient is an 82-year-old male with complex history which includes 1. Longstanding chronic ischemic heart disease status post remote coronary interventions LAD and right coronary artery. Last diagnostic cardiac catheterization 2017 demonstrated patent LAD stent with 50% narrowing, chronic right coronary occlusion. 2. Chronic angina pectoris 3. Atherosclerotic vascular disease status post abdominal aortic aneurysm repair, 2013 open surgical, with chronic abdominal aneurysm dilatation proximal to the repair site. Aneurysm evaluated at time of chest CT May 10, 2022 and follow-up CT 07/01/2020 4. Atherosclerotic carotid disease status post left carotid enterectomy, past TIAs on dual antiplatelet therapy with aspirin and clopidogrel 5. Left lower lobe lung resection for malignancy 2013 with chronic obstructive lung disease 6. Recurrent anemia, paraesophageal hiatal hernia 7. CKD stage III 8. Hypertension 9. Hyperlipidemia Patient presents now noting approximately 2-week or 3-week history of intermittent epigastric lower chest discomfort nocturnally. Symptoms in the past several days have been relieved by Tums. No daytime exacerbation or worsening with ambulation though patient relatively sedentary. He notes chronic dyspnea secondary to multiple medical issues. Has been aware of melena and blood in stools in the morning bowel movements. No tachypalpitations syncope or near syncope. No true angina. Did not use nitroglycerin for complaints at home. No fevers chills or unexplained infections. No acute sleep disruptions. Does not wear oxygen chronically. No acute weight loss or gain Had similar episode this morning of chest pressure not relieved by Tums. He took additional Advil and presented for further evaluation. ER evaluation included significant drop in hemoglobin of 7.6 (last available 11.03 August 2021) Patient currently without acute complaint, he is receiving blood transfusion. Allergies Allergy/AdvReac Type Severity Reaction Status Date / Time Penicillins Allergy Mild Rash Verified 04/08/22 14:45 Home Medications Medication Instructions Recorded Confirmed Type loratadine 10 mg tablet 10 mg PO QAM #0 tabs 10/22/17 07/25/22 History montelukast 10 mg tablet 10 mg PO QPM #0 tabs 10/22/17 07/25/22 History metoprolol tartrate 25 mg tablet 50 mg PO BID 08/03/18 07/25/22 History amlodipine 5 mg tablet 10 mg PO QAM 09/02/18 07/25/22 History dutasteride 0.5 mg capsule 0.5 mg PO HS #90 caps 08/20/21 07/25/22 Rx allopurinol 100 mg tablet 100 mg PO 3XWK 08/24/21 07/25/22 History aspirin 81 mg tablet,delayed 81 mg PO DAILY 08/24/21 07/25/22 History release atorvastatin 10 mg tablet 10 mg PO DAILY 08/24/21 07/25/22 History cholecalciferol (vitamin D3) 50 50 mcg PO QAM 08/24/21 07/25/22 History mcg (2,000 unit) tablet (Vitamin D3) clopidogrel 75 mg tablet 75 mg PO DAILY 08/24/21 07/25/22 History famotidine 20 mg tablet 20 mg PO BID 08/24/21 07/25/22 History isosorbide mononitrate 60 mg 60 mg PO DAILY 08/24/21 07/25/22 History tablet,extended release 24 hr pantoprazole 40 mg tablet,delayed 40 mg PO DAILY 07/25/22 07/25/22 History release Patient History Medical History (Updated 07/25/22 @ 11:27 by Michelle Gill PA-C) Anemia Arthritis BPH (benign prostatic hyperplasia) CAD (coronary atherosclerotic disease) "S/P LAD stent" Chronic kidney disease ? STAGE GERD (gastroesophageal reflux disease) Hearing deficit HTN (hypertension) Hx of cancer of lung Hx of gout Poor historian Stomach ulcer REASON FOR EGD TIA (transient ischemic attack) X 2 "WITHIN THE LAST 2 YEARS" NONE IN THE LAST 3 MONTHS Surgical History H/O aortic aneurysm repair 2013 AT [facility] H/O heart artery stent X 4 (? DATE "LAST 2 STENTS PLACED AT [facility]") History of colonoscopy History of left-sided carotid endarterectomy History of tonsillectomy and adenoidectomy History of tooth extraction S/P lobectomy of lung Family History (Updated 07/25/22 @ 11:53 by Michelle Gill PA-C) Other No family history of adverse response to anesthesia No significant family history Social History Smoking Status: Former smoker Smoking End Date: 30 years ago; Second Hand Exposure: Yes ( A CHILD/PARENTS SMOKED); Hx Alcohol Use: No Hx Substance Use: No Preferred Language: Australian Communication Ability: Effective Software Requirements Engineer Required: No Beliefs That Will Affect Care: None Current Living Situation: Alone Current Living Situation Comment: 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 COURT 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 3X PER WEEK Feels Safe at Home: Yes Safety Concerns: Feels Safe At This Time Assistive Devices: Cane, Glasses and Hearing Aid - Bilateral Review of Systems Review of Systems: All systems reviewed & are unremarkable except as noted in HPI & below Physical Exam Constitutional: WD/WN, vitals as above Eyes: PERRL, conjunctivae normal, anicteric sclerae ENMT: external ear and nose normal, oropharynx normal Neck: trachea midline, no thyromegaly Respiratory: normal respiratory effort, lungs clear to auscultation Cardiovascular: Rate/Rhythm: regular rate and regular rhythm Heart Sounds: normal S1, normal S2 and + murmur (Grade 2 / 6 systolic murmur); no gallop Palpation: normal PMI Vessels: normal carotid upstroke and radial pulses present; no JVD and no carotid bruit Extremities: no edema Gastrointestinal (Abdomen): normal bowel sounds, soft, nontender, no hepatosplenomegaly Midline incisions intact. No focal tenderness to deep palpation no audible abdominal bruit Musculoskeletal: no cyanosis or clubbing, extremities motor strength 5/5 Skin: no rashes, warm and dry Neurologic: PERRL, EOMI, accommodation nl, no face palsy, no dysarthria Psychiatric: A+Ox3, euthymic affect Results & Data ([facility]) Vital Signs (Past 12 Hours) Vital Signs Temp Pulse Pulse Resp BP Pulse Ox O2 Del Method 07/25/22 13:42 36.5 C 92 H 20 147/80 H 99 07/25/22 13:12 36.8 C 80 20 168/71 H 97 07/25/22 13:05 85 07/25/22 13:03 Room Air 07/25/22 12:57 36.5 C 93 H 20 161/89 H 98 07/25/22 12:32 36.5 C 95 H 20 168/83 H 94 07/25/22 11:36 84 14 117/93 96 Room Air 07/25/22 11:22 Room Air 07/25/22 11:22 86 16 97 Room Air 07/25/22 11:00 89 15 07/25/22 11:00 156/110 H 07/25/22 10:30 86 16 07/25/22 10:30 146/96 H 07/25/22 10:00 90 17 97 07/25/22 10:00 144/87 H 07/25/22 09:30 87 17 95 07/25/22 09:30 141/79 H 07/25/22 08:51 36.7 C 90 16 161/93 H 98 Room Air 07/25/22 08:51 Room Air Laboratory Results Laboratory Results - last 24 hr 07/25/22 07/25/22 07/25/22 09:15 09:15 09:35 WBC 6.04 RBC 2.35 L Hgb 7.6 L Hct 23.3 L MCV 99.1 MCH 32.3 MCHC 32.6 RDW Std Deviation 49.9 H RDW Coeff of [place] 14.2 Plt Count 195 MPV 10.3 Immature Gran % (Auto) 0.8 Neut % (Auto) 73.2 Lymph % (Auto) 13.4 [place] % (Auto) 7.6 Eos % (Auto) 4.5 Baso % (Auto) 0.5 Neut # (Auto) 4.42 Lymph # (Auto) 0.81 L [place] # (Auto) 0.46 Eos # (Auto) 0.27 Baso # (Auto) 0.03 Immature Gran # (Auto) 0.05 H RBC Morphology Unremarkable PT INR APTT PTT Ratio Sodium Cancelled Potassium Cancelled Chloride Cancelled Carbon Dioxide Cancelled Anion Gap Cancelled BUN Cancelled Creatinine Cancelled Est Cr Clr Drug Dosing Cancelled Est GFR ( Amer) Cancelled Est GFR (Non-Af Amer) Cancelled BUN/Creatinine Ratio Cancelled Glucose Cancelled Calcium Cancelled Magnesium Cancelled Total Bilirubin Cancelled AST Cancelled ALT Cancelled Alkaline Phosphatase Cancelled Troponin I High Sens Cancelled Total Protein Cancelled Albumin Cancelled Globulin Cancelled Albumin/Globulin Ratio Cancelled Lipase Cancelled SARS-CoV-2, RNA, NAAT NEGATIVE Blood Type Antibody Screen Crossmatch 07/25/22 07/25/22 07/25/22 09:53 09:58 09:58 WBC RBC Hgb Hct MCV MCH MCHC RDW Std Deviation RDW Coeff of [place] Plt Count MPV Immature Gran % (Auto) Neut % (Auto) Lymph % (Auto) [place] % (Auto) Eos % (Auto) Baso % (Auto) Neut # (Auto) Lymph # (Auto) [place] # (Auto) Eos # (Auto) Baso # (Auto) Immature Gran # (Auto) RBC Morphology PT 10.6 INR 1.0 APTT 26.3 PTT Ratio 1.0 Sodium 140 Potassium 4.3 Chloride 109 H Carbon Dioxide 25 Anion Gap 6 BUN 31 H Creatinine 1.80 H Est Cr Clr Drug Dosing 29.1 Est GFR ( Amer) 39.5 Est GFR (Non-Af Amer) 34.0 BUN/Creatinine Ratio 17.2 Glucose 108 H Calcium 9.5 Magnesium 2.0 Total Bilirubin 0.3 AST 12 L ALT 7 Alkaline Phosphatase 57 Troponin I High Sens 20.7 H Total Protein 6.7 Albumin 3.5 Globulin 3.2 Albumin/Globulin Ratio 1.1 Lipase 33 SARS-CoV-2, RNA, NAAT Blood Type O Positive Antibody Screen NEGATIVE Crossmatch See Detail Diagnostic Findings Echocardiogram 07/25/2022, personally reviewed Mild left ventricular hypertrophy with normal to hyperdynamic LV function EF 60- 65% without wall motion abnormality. Aortic valve is calcified with only minimal stenosis, peak aortic valve velocity 2.1 m per ECG Additional Comments: EKG 07/25/2022, personally reviewed Sinus rhythm with minimal voltage criteria for left hypertrophy, premature ventricular beats. No acute ST segment abnormalities or Q waves
--- NOTE | 2022-07-25 16:25 | Electrocardiogram Report ---
Test Reason : Blood Pressure : / mmHG Vent. Rate : 092 BPM Atrial Rate : 092 BPM P-R Int : 184 ms QRS Dur : 080 ms QT Int : 372 ms P-R-T Axes : 051 053 047 degrees QTc Int : 460 ms Sinus rhythm with frequent Premature ventricular complexes Diffuse Minor Nonspecific ST abnormality Abnormal ECG When compared with ECG of 02-SEP-2018 18:19, No significant change Confirmed by Antonio Yuan ([id number]) on 07/25/2022 4:25:24 PM Referred By: REFERRED SELF Confirmed By:Antonio Yuan
[2022-07-25] MEDS: MONTELUKAST SODIUM 10 MG TABLET PO SCH (21:28)
[2022-07-26] MEDS: PANTOprazole 40 MG in DEXTROSE 5% 100 ML IV SCH ×3 (03:49→14:25)
[2022-07-26 04:02] LABS: Hematocrit (blood only) 25.8 % (40.1-51.0); Hemoglobin 8.6 g/dl (14.0-18.0); Mean Corpuscular Hemoglobin 31.7 pg (25.0-34.0); Mean Corpuscular Hgb Conc 33.3 g/dL (32.0-36.0); Mean Corpuscular Volume 95.2 fL (80.0-100.0); Mean Platelet Volume 9.7 fL (9.4-12.4); Platelet Count 210 K/uL (130-400); RDW Coefficient of Variation 13.9 % (11.5-14.5); RDW Standard Deviation 47.7 fL (36.4-46.3); Red Blood Count 2.71 M/uL (4.63-6.08); White Blood Count 5.58 K/ul (4.8-10.8)
[2022-07-26 04:21] LABS: Albumin Globulin Ratio 1.2 (0.9-2); Albumin Level 3.4 gm/dl (3.4-5.0); BUN Creatinine Ratio 13.6 (10-20); Bilirubin,Total 0.8 mg/dl (0.2-1.0); Calcium 8.8 mg/dl (8.5-10.1); Creatinine Clr Calc Pharmacy 32.3 ml/min; Est GFR (African American) 44.8 ml/min; Est GFR (Non-African American) 38.7 ml/min; Globulin 2.9 gm/dl (2.5-4.0); Potassium 3.7 mmol/L (3.5-5.1); Total Protein 6.3 gm/dl (6.0-8.3)
[2022-07-26 04:44] LABS: Troponin I High Sensitivity 83.2 pg/ml (0-20)
[2022-07-26] MEDS: ISOSORBIDE MONO EXTENDED REL 60 MG TABCR PO SCH (06:50)
[2022-07-26] MEDS: ATORVASTATIN 10 MG TAB PO SCH (06:50)
[2022-07-26] MEDS: CHOLECALCIFEROL 1,000 UNITS 25 MCG TAB PO SCH (06:50)
[2022-07-26] MEDS: amLODIPine BESYLATE 5 MG TAB PO SCH (06:50)
[2022-07-26] MEDS: LORATADINE 10 MG TAB PO SCH (06:50)
[2022-07-26] MEDS: METOPROLOL TARTRATE 50 MG TAB PO SCH ×2 (06:51→20:00)
--- NOTE | 2022-07-26 08:04 | Electrocardiogram Report ---
Test Reason : Blood Pressure : / mmHG Vent. Rate : 078 BPM Atrial Rate : 078 BPM P-R Int : 198 ms QRS Dur : 088 ms QT Int : 396 ms P-R-T Axes : 056 032 034 degrees QTc Int : 451 ms Normal sinus rhythm Minimal voltage criteria for LVH, may be normal variant Diffuse Minor Nonspecific ST abnormality Borderline ECG When compared with ECG of 25-JUL-2022 09:06, Premature ventricular complexes are no longer Present Confirmed by Antonio Yuan ([id number]) on 07/26/2022 8:03:46 AM Referred By: REFERRED SELF Confirmed By:Antonio Yuan
--- NOTE | 2022-07-26 08:08 | Anesthesiology Consultation ---
Date of Service July 26, 2022 Assessment & Plan (1) Encounter for pre-operative examination: Chart Review Chart Review: entry level project coordinator initiated History Surgery Operation Date: 07/26/22 15:45 Proposed Procedures p Esophagogastroduodenoscopy Dr Pedro Vasquez, Height/Weight Height: 5 ft 7 in Weight: 78.6 kg Allergies Allergy/AdvReac Type Severity Reaction Status Date / Time Penicillins Allergy Mild Rash Verified 04/08/22 14:45 Medications Home Medications Medication Instructions Recorded Confirmed Last Taken loratadine 10 mg tablet 10 mg PO QAM #0 tabs 10/22/17 07/25/22 07/24/22 montelukast 10 mg tablet 10 mg PO QPM #0 tabs 10/22/17 07/25/22 07/24/22 metoprolol tartrate 25 mg tablet 50 mg PO BID 08/03/18 07/25/22 07/24/22 amlodipine 5 mg tablet 10 mg PO QAM 09/02/18 07/25/22 07/24/22 dutasteride 0.5 mg capsule 0.5 mg PO HS #90 caps 08/20/21 07/25/22 07/24/22 allopurinol 100 mg tablet 100 mg PO 3XWK 08/24/21 07/25/22 07/24/22 aspirin 81 mg tablet,delayed 81 mg PO DAILY 08/24/21 07/25/22 07/24/22 release atorvastatin 10 mg tablet 10 mg PO DAILY 08/24/21 07/25/22 07/24/22 cholecalciferol (vitamin D3) 50 50 mcg PO QAM 08/24/21 07/25/22 07/24/22 mcg (2,000 unit) tablet (Vitamin D3) clopidogrel 75 mg tablet 75 mg PO DAILY 08/24/21 07/25/22 07/24/22 famotidine 20 mg tablet 20 mg PO BID 08/24/21 07/25/22 07/24/22 isosorbide mononitrate 60 mg 60 mg PO DAILY 08/24/21 07/25/22 07/24/22 tablet,extended release 24 hr pantoprazole 40 mg tablet,delayed 40 mg PO DAILY 07/25/22 07/25/22 07/24/22 release Active Medications Generic Name Dose Route Start Last Admin Trade Name Freq PRN Reason Stop Dose Admin Allopurinol 100 mg 08/26/22 09:00 07/26/22 06:50 Allopurinol 100 Mg Tab PO 08/25/22 08:59 Not Given [id number] [facility] Amlodipine Besylate 10 mg 07/26/22 09:00 07/26/22 06:50 Amlodipine Besylate 5 Mg Tab PO 08/25/22 08:59 Not Given QAM [facility] Atorvastatin Calcium 10 mg 07/26/22 09:00 07/26/22 06:50 Atorvastatin 10 Mg Tab PO 08/25/22 08:59 Not Given DAILY [facility] Pantoprazole Sodium 40 mg/ 100 mls @ 20 mls/hr 07/25/22 12:30 07/26/22 03:49 Dextrose IV 08/24/22 12:29 8 mg/hr Q5H ALEX 20 mls/hr Administration 8 MG/HR Isosorbide Mononitrate 60 mg 07/26/22 09:00 07/26/22 06:50 Isosorbide [place] Extended Rel 60 Mg Tabcr PO 08/25/22 08:59 Not Given DAILY [facility] Protocol Loratadine 10 mg 07/26/22 09:00 07/26/22 06:50 Loratadine 10 Mg Tab PO 08/25/22 08:59 Not Given QAM [facility] Metoprolol Tartrate 50 mg 07/26/22 09:00 07/26/22 06:51 Metoprolol Tartrate 50 Mg Tab PO 08/25/22 08:59 Not Given BID [facility] Miscellaneous 1 each 07/25/22 16:00 07/26/22 06:49 Avodart-Order Awaiting Action N/A 08/24/22 15:59 Not Given QS [facility] Montelukast Sodium 10 mg 07/25/22 21:00 07/25/22 21:28 Montelukast Sodium 10 Mg Tablet PO 08/24/22 20:59 10 mg QPM [facility] Administration Vitamin D 2,000 units 07/26/22 09:00 07/26/22 06:50 Cholecalciferol 1,000 Units 25 Mcg Tab PO 08/25/22 08:59 Not Given QAM [facility] Past Medical History Medical History Anemia Arthritis BPH (benign prostatic hyperplasia) CAD (coronary atherosclerotic disease) "S/P LAD stent" Chronic kidney disease ? STAGE GERD (gastroesophageal reflux disease) Hearing deficit HTN (hypertension) Hx of cancer of lung Hx of gout Poor historian Stomach ulcer REASON FOR EGD TIA (transient ischemic attack) X 2 "WITHIN THE LAST 2 YEARS" NONE IN THE LAST 3 MONTHS Past Family History Family History Other No family history of adverse response to anesthesia No significant family history Past Surgical History Surgical History H/O aortic aneurysm repair 2013 AT [facility] H/O heart artery stent X 4 (? DATE "LAST 2 STENTS PLACED AT [facility]") History of colonoscopy History of left-sided carotid endarterectomy History of tonsillectomy and adenoidectomy History of tooth extraction S/P lobectomy of lung Social History Smoking Status: Former smoker tobacco type: cigarettes Smoking End Date: 30 years ago Hx Alcohol Use: No Hx Substance Use: No substance use type: does not use Physical Exam Vital Signs Last Vital Signs Temp 98.2 F 07/26/22 07:27 Pulse 80 07/26/22 07:27 Resp 20 07/26/22 07:27 BP 162/84 H 07/26/22 07:27 Pulse Ox 97 07/26/22 07:27 O2 Del Method 07/26/22 07:27 Testing Laboratory Results 07/26/22 03:44 07/26/22 03:44 PT 10.6 Seconds (9.0-12.0) 07/25/22 09:53 INR 1.0 (0.9-1.1) 07/25/22 09:53 APTT 26.3 Seconds (21.0-31.0) 07/25/22 09:53 Blood Type O Positive 07/25/22 09:58 Antibody Screen NEGATIVE 07/25/22 09:58 Electrocardiogram Date: 07/26/22 Normal sinus rhythm, rate 78 bpm Minimal voltage criteria for LVH, may be normal variant Borderline ECG When compared with ECG of 25-JUL-2022 09:06, Premature ventricular complexes are no longer Present Chest X-Ray Date: 07/25/22 IMPRESSION: No acute cardiopulmonary findings. No change in appearance of the chest. Echocardiogram Date: 07/25/22 LV is normal in size Mild LVH LV wall motion is normal EF 60-65% Grade 1 diastolic dysfunction There is mod calcification of the AV leaflets and mild restriction of leaflet mobility There is trace MR/TR Doppler findings do not suggest pulmonary hypertension
--- NOTE | 2022-07-26 08:16 | History & Physical Bridge Note ---
Date of Service July 26, 2022 History & Physical Bridge Note I have examined the patient, reviewed the History & Physical and in the interval since the performance of the History & Physical I have noted the following changes of clinical significance. Patient with ongoing melena for the past week but intermittent over the past few months. Denies hematochezia, hematemesis, or any brisk bleeding. Hemoglobin on admission 7.6 from baseline of 13 (however from 08/2018). He recieved 1 unit PRBC with appropriate response to 8.6. On plavix and asa at home. Last EGD in 08/2021 with large paraesophageal hernia Will plan on EGD today given melena and concern for acute blood loss anemia. No known history of GI bleeding. Denies NSAID use. Explained risks of procedure with patient including, but not limited to, bleeding, infection, perforation.
[2022-07-26] MEDS ORDERED: PROPOFOL IV EMULSION 10 MG/ML 20 ML VIAL IV ONE (08:39)
[2022-07-26] MEDS ORDERED: LIDOCAINE 2% MPF LOCAL 5 ML VIAL INFIL ONE (08:39)
[2022-07-26] MEDS ORDERED: allopurinoL 100 MG TAB PO SCH (09:00)
[2022-07-26] MEDS ORDERED: ASPIRIN 81 MG ECTAB PO SCH (09:00)
--- NOTE | 2022-07-26 09:19 | Anesthesiology Progress Note ---
Date of Service July 26, 2022 Anesthesia Post Procedure Vital Signs Vital Signs: Temp Pulse Pulse Resp BP BP BP 07/26/22 08:46 97.2 F L 88 20 172/88 H 07/26/22 07:27 98.2 F 80 20 162/84 H 07/26/22 06:55 78 07/26/22 03:29 99.0 F 86 18 124/68 07/25/22 22:22 76 07/25/22 22:57 97.9 F 79 18 148/67 H 07/25/22 20:30 07/25/22 19:17 97.5 F L 83 18 173/79 H 07/25/22 16:33 97.9 F 80 19 143/80 H 07/25/22 16:19 90 07/25/22 15:48 97.5 F L 79 18 146/77 H 07/25/22 14:42 97.7 F 88 20 151/74 H 07/25/22 13:42 97.7 F 92 H 20 147/80 H 07/25/22 13:12 98.2 F 80 20 168/71 H 07/25/22 13:05 85 07/25/22 13:03 07/25/22 12:57 97.7 F 93 H 20 161/89 H 07/25/22 12:32 97.7 F 95 H 20 168/83 H 07/25/22 11:36 84 14 117/93 07/25/22 11:22 07/25/22 11:22 86 16 07/25/22 11:00 89 15 07/25/22 11:00 156/110 H 07/25/22 10:30 86 16 07/25/22 10:30 146/96 H 07/25/22 10:00 90 17 07/25/22 10:00 144/87 H 07/25/22 09:30 87 17 07/25/22 09:30 141/79 H Pulse Ox O2 Del Method 07/26/22 08:46 99 Room Air 07/26/22 07:27 97 Room Air 07/26/22 06:55 07/26/22 03:29 96 Room Air 07/25/22 22:22 07/25/22 22:57 97 Room Air 07/25/22 20:30 Room Air 07/25/22 19:17 98 Room Air 07/25/22 16:33 96 Room Air 07/25/22 16:19 07/25/22 15:48 99 07/25/22 14:42 98 07/25/22 13:42 99 07/25/22 13:12 97 07/25/22 13:05 07/25/22 13:03 Room Air 07/25/22 12:57 98 07/25/22 12:32 94 07/25/22 11:36 96 Room Air 07/25/22 11:22 Room Air 07/25/22 11:22 97 Room Air 07/25/22 11:00 07/25/22 11:00 07/25/22 10:30 07/25/22 10:30 07/25/22 10:00 97 07/25/22 10:00 07/25/22 09:30 95 07/25/22 09:30 Transfer of Care Handoff Completed per policy Notes Mental Status: alert / awake / arousable and participated in evaluation Patient Amnestic to Procedure: Yes Nausea / Vomiting: adequately controlled Pain: adequately controlled Airway Patency, RR, SpO2: stable & adequate BP & HR: stable & adequate Hydration State: stable & adequate Anesthetic Complications: no major complications apparent and Pt Satisfied with anesthetic care
--- NOTE | 2022-07-26 09:21 | GI REPORT ---
Patient Name: Levi Pérez Procedure Date: 07/26/2022 8:49 AM Date of : 1940 Admit Type: Inpatient Age: 82 Gender: Male Attending MD: Ramonita Pretty DO Procedure: Upper GI endoscopy Providers: Ramonita Pretty DO Referring MD: Kathy Langston Md Indications: Melena Patient Profile: This is an 82 year old male. Refer to note in patient chart for documentation of history and physical. Medicines: Monitored Anesthesia Care Complications: No immediate complications. Estimated Blood Loss: Estimated blood loss: none. Procedure: Pre-Anesthesia Assessment: - Prior to the procedure, a History and Physical was performed, and patient medications and allergies were reviewed. The risks and benefits of the procedure and the sedation options and risks were discussed with the patient. All questions were answered and informed consent was obtained. Patient identification and proposed procedure were verified by the physician, the nurse and the compressor station engineer chief in the procedure room. Mental Status Examination: alert and oriented. Airway Examination: Mallampati Class II (the uvula but not tonsillar pillars visualized). Respiratory Examination: clear to auscultation. CV Examination: RRR, no murmurs, no S3 or S4. Prophylactic Antibiotics: The patient does not require prophylactic antibiotics. Prior Anticoagulants: The patient has taken Plavix (clopidogrel), last dose was 2 days prior to procedure. ASA Grade Assessment: III - A patient with severe systemic disease. After reviewing the risks and benefits, the patient was deemed in satisfactory condition to undergo the procedure. The anesthesia plan was to use monitored anesthesia care (MAC). Immediately prior to administration of medications, the patient was re-assessed for adequacy to receive sedatives. The physical status of the patient was re-assessed after the procedure. After obtaining informed consent, the endoscope was passed under direct vision. Throughout the procedure, the patient's blood pressure, pulse, and oxygen saturations were monitored continuously. The Endoscope was introduced through the mouth, and advanced to the second part of duodenum. The upper GI endoscopy was accomplished without difficulty. The patient tolerated the procedure well. Findings: The Z-line was regular and was found 36 cm from the incisors. A large hiatal hernia was present. The exam of the esophagus was otherwise normal. The entire examined stomach was normal. The duodenal bulb and second portion of the duodenum were normal. Impression: - Z-line regular, 36 cm from the incisors. - Large hiatal hernia. No evidence of shell erosions or ulcerations despite thorough examination of the hernia sac. - Normal stomach. - Normal duodenal bulb and second portion of the duodenum. - No specimens collected. - No source found on upper endoscopy today to explain patient's melena or anemia. Recommendation: - [facility]. - Resume previous diet. - Continue present medications. - Monitor for further evidence of GI bleeding including melena and hematochezia. If he has evidence of overt GI bleeding or dropping hemoglobin would plan for colonoscopy while inpatient. Otherwise would recommend outpatient colonoscopy. Ramonita Pretty, 07/26/2022 9:20:47 AM Note Initiated On: 07/26/2022 8:49 AM Number of Addenda: 0 I attest to the content of the Intraoperative Record and orders documented therein, exceptions below {[id number]}
--- NOTE | 2022-07-26 09:41 | Communication Note ---
Date of Service: July 26, 2022 Given negative EGD today and patient's comorbidities will plan for inpatient colonoscopy on Friday. Will plan for bowel prep on Friday evening and clear l iquid diet the entire day on Friday. NPO after midnight on Friday.
[2022-07-26] MEDS ORDERED: OPTIRAY 300 500mL IV ONE (11:00)
--- NOTE | 2022-07-26 11:07 | Cardiology Progress Note ---
Date of Service July 26, 2022 Assessment & Plan (1) Chest pain: (2) Anemia: (3) GI bleed: (4) GERD (gastroesophageal reflux disease): (5) AAA (abdominal aortic aneurysm): (6) HLD (hyperlipidemia): (7) CAD (coronary atherosclerotic disease): (8) TIA (transient ischemic attack): Plan Patient is a complex 82-year-old male with medical issues as outlined. Include chronic stable ischemic heart disease, atherosclerotic carotid disease on dual antiplatelet therapy due to TIAs, abdominal aortic aneurysm status postsurgical repair with proximal to prior repair persistent abdominal aneurysm. Patient on guideline directed optimal medical regimen at baseline Patient carries a history of past anemia, paraesophageal hernia Presents now with signs and symptoms of abdominal and chest discomfort relieved initially by antacids now persistent. Laboratory studies reflect significantly reduced hemoglobin of 7.6. EKGs do not reflect acute ischemia and initial troponin upper limits of normal.. History and presentation findings are not suggestive of acute coronary syndrome although patient at risk given diffuse vascular disease. No acute abdominal or back pain or tenderness to palpation currently CTA of the abdomen pending. Aneurysm evaluation by CAT scan May 2022 and Jul ust 2021. We will compare to current study GI evaluation with endoscopy planned Will hold aspirin and clopidogrel acutely. May consider use of single agent antiplatelet therapy as course progresses. Would choose clopidogrel over aspirin given stroke benefits, reduced GI bleeding. Continue all other cardiac medications and antihypertensives 07/26/2022 Upper endoscopy without evidence of bleeding source. Interpretation of CTA of the abdomen pending Issues addressed as follows 1. Mildly elevated troponin: Secondary to demand based ischemia and patient with diffuse coronary atherosclerosis. EKG without acute change echocardiogram with preserved LV systolic function 2. GI bleeding with planned colonoscopy on Friday 3. Diffuse atherosclerosis, abdominal aortic aneurysm status post aneurysm repair. CTA pending. Would follow renal function following contrast administration 4. CKD stage III Admission and Anticipated Discharge Date Admission Date: July 25, 2022 Subjective Patient seen and examined, chart, medications, telemetry reviewed. Patient underwent upper GI endoscopy this morning with good tolerance. No revealing source of bleeding. Does note episode of blood in stools as late as yesterday. No noted today but no bowel movement. No fevers or chills. No chest pains or discomfort no worsening shortness of breath. Blood pressure currently elevated but did not have morning medications in anticipation of procedure Review of Systems Review of Systems: All systems reviewed & are unremarkable except as noted in Subjective Physical Exam Constitutional: WD/WN, vitals as above Eyes: PERRL, conjunctivae normal, anicteric sclerae ENMT: external ear and nose normal, oropharynx normal Neck: trachea midline, no thyromegaly Respiratory: normal respiratory effort, lungs clear to auscultation Cardiovascular: Rate/Rhythm: regular rate and regular rhythm Heart Sounds: normal S1, normal S2 and + murmur (Grade 2 / 6 systolic murmur); no gallop Palpation: normal PMI Vessels: normal carotid upstroke and radial pulses present; no JVD and no carotid bruit Extremities: no edema Gastrointestinal (Abdomen): normal bowel sounds, soft, nontender, no hepatosplenomegaly Musculoskeletal: no cyanosis or clubbing, extremities motor strength 5/5 Skin: no rashes, warm and dry Neurologic: PERRL, EOMI, accommodation nl, no face palsy, no dysarthria Psychiatric: A+Ox3, euthymic affect Results & Data ([facility]) Vital Signs (Past 12 Hours) Vital Signs Temp Pulse Pulse Resp BP BP Pulse Ox 07/26/22 09:58 36.4 C L 81 20 163/80 H 98 07/26/22 09:41 77 20 167/87 H 98 07/26/22 09:26 78 20 118/80 98 07/26/22 09:11 78 20 108/67 99 07/26/22 08:46 36.2 C L 88 20 172/88 H 99 07/26/22 07:27 36.8 C 80 20 162/84 H 97 07/26/22 06:55 78 07/26/22 03:29 37.2 C 86 18 124/68 96 O2 Del Method 07/26/22 09:58 Room Air 07/26/22 09:41 Room Air 07/26/22 09:26 Room Air 07/26/22 09:11 Room Air 07/26/22 08:46 Room Air 07/26/22 07:27 Room Air 07/26/22 06:55 07/26/22 03:29 Room Air Laboratory Results Laboratory Results - last 24 hr 07/25/22 07/25/22 07/25/22 09:58 15:22 21:31 WBC RBC Hgb Hct MCV MCH MCHC RDW Std Deviation RDW Coeff of Serene Plt Count MPV Sodium Potassium Chloride Carbon Dioxide Anion Gap BUN Creatinine Est Cr Clr Drug Dosing Est GFR ( Amer) Est GFR (Non-Af Amer) BUN/Creatinine Ratio Glucose Calcium Total Bilirubin AST ALT Alkaline Phosphatase Troponin I High Sens 88.2 H* D 126.8 H* D Total Protein Albumin Globulin Albumin/Globulin Ratio Blood Type O Positive Antibody Screen NEGATIVE Crossmatch See Detail 07/26/22 07/26/22 07/26/22 03:44 03:44 10:10 WBC 5.58 RBC 2.71 L Hgb 8.6 L Hct 25.8 L MCV 95.2 MCH 31.7 MCHC 33.3 RDW Std Deviation 47.7 H RDW Coeff of Serene 13.9 Plt Count 210 MPV 9.7 Sodium 138 Potassium 3.7 Chloride 107 Carbon Dioxide 23 Anion Gap 8 BUN 22 Creatinine 1.62 H Est Cr Clr Drug Dosing 32.3 Est GFR ( Amer) 44.8 Est GFR (Non-Af Amer) 38.7 BUN/Creatinine Ratio 13.6 Glucose 134 H Calcium 8.8 Total Bilirubin 0.8 D AST 11 L ALT 6 L Alkaline Phosphatase 59 Troponin I High Sens 83.2 H* D 59.0 H* D Total Protein 6.3 Albumin 3.4 Globulin 2.9 Albumin/Globulin Ratio 1.2 Blood Type Antibody Screen Crossmatch ECG Additional Comments: EKG 07/26/2022 Normal sinus rhythm Minimal voltage criteria for LVH, may be normal variant Diffuse Minor Nonspecific ST abnormality Borderline ECG When compared with ECG of 25-JUL-2022 09:06, Premature ventricular complexes are no longer Present
--- NOTE | 2022-07-26 11:56 | CT Scan Report ---
CT ANGIOGRAM OF THE ABDOMEN AND PELVIS COMBO CLINICAL HISTORY: Abdominal aortic aneurysm. COMPARISON STUDY: Abdomen and pelvis CTA 07/01/2022. TECHNIQUE: Before and following the IV administration of 120 cc of Optiray 320, CT angiogram of the a bdomen and pelvis was performed from the lung bases the proximal femora. Images are reviewed in the a xial, sagittal, and coronal planes. 3-D MIPS images are created and assessed. IV contrast was adminis tered without complication. A dose lowering technique was utilized adhering to the principles of ALA RA. CT DOSE: 1083.91 mGy.cm FINDINGS: Lower chest: The heart is normal in size and without pericardial effusion. The coronary arteries are densely calcified. There is a moderate to large hiatal hernia, unchanged. Emphysematous change is not ed at the lung bases. There is volume loss in the left lung with a linear metallic foreign body at th e left lung base. Trace bilateral pleural effusions. Scattered calcified granulomas are observed. Liver: The contrast-enhanced liver is normal in size, contour, and attenuation. There is no intrahepa tic biliary ductal dilatation. The main portal veins appear patent. A few subcentimeter hypodense les ions favor cysts. Gallbladder: The gallbladder is contracted and contains calcified gallstones. Spleen: Normal in size and attenuation noting heterogeneous arterial phase enhancement. Pancreas: Unremarkable. Adrenal glands: Unremarkable. Kidneys: The contrast enhanced kidneys are atrophic and without hydronephrosis. The kidneys enhance s ymmetrically. There are at least 4 nonobstructing left renal calculi seen on the unenhanced series. T hese measure up to 4 mm. No right renal calculi are identified and there is no ureteral stone. Scatte red renal cysts measure up to 1.7 cm. A retroaortic left renal vein is incidentally noted. Abdominal aorta and iliac arteries: There is advanced atherosclerotic calcification of the abdominal aorta and iliac arteries. There is evidence of previous repair of a proximal abdominal aortic aneurys m. The residual aneurysm sac just above the level of the renal arteries measures 4.1 x 4.5 cm (AP x t ransverse). This remains unchanged. The abdominal aorta is patent. There is aneurysmal dilatation of the left common iliac artery which measures up to 1.9 cm diameter. 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 There is mild to moderate focal stenosis of the right external iliac artery. Stable mild th ickening of the proximal abdominal aorta wall. Major branches of the abdominal aorta: The celiac trunk and superior mesenteric artery are patent. Th ere is mild to moderate focal stenosis at the origin of the celiac trunk. There is mild to moderate s tenosis of the proximal superior mesenteric artery with poststenotic dilatation. 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 This is reconstituted distally via retrograde flow. Hepat ic arterial anatomy is conventional. There are single bilateral renal arteries. There is high-grade stenosis of the origin of the right renal artery and at least moderate stenosis at the origin of the left renal artery. Bowel: There is moderate to advanced colonic diverticulosis without CT evidence of acute diverticulit is. No bowel obstruction is seen. Fecal retention is noted throughout the colon. The appendix is not visualized. Peritoneum: There is no intraperitoneal free air or abdominal ascites. There is a fat-containing umbi lical hernia. Lymphadenopathy: None. Pelvic viscera: The prostate gland is diminutive and heterogeneous. The bladder wall appears mildly t hickened and trabeculated indicating chronic outlet obstruction. There are bilateral fat-containing i nguinal hernias. Skeletal structures: The skeletal structures are osteopenic. There is a mild chronic superior endplat e compression deformity of T12. Lumbosacral spondylosis is noted. No lytic or blastic lesions are see n. IMPRESSION: 1. Overall no significant change compared to the prior study. The patient is status post repair of a proximal abdominal aortic aneurysm as above. The residual aneurysm sac measures 4.5 x 4.1 cm, unchang ed. 2. The abdominal aorta and iliac arteries are patent bilaterally. 3. 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 4. Multifocal stenoses of the major branches of the abdominal aorta and iliac arteries as above. 5. 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 6. Emphysema with chronic pulmonary parenchymal changes as above. 7. Stable mild thickening of the proximal abdominal aorta wall. 8. Moderate to advanced colonic diverticulosis without CT evidence of acute diverticulitis. 9. Left-sided nephrolithiasis. 10. Moderate to large hiatal hernia. 11. Additional findings as above. ACT 112: Negative or not required by law. Electronically signed by: Shailesh Pinon M.D. 07/26/2022 11:53 AM
--- NOTE | 2022-07-26 14:06 | Hospitalist Progress Note ---
Date of Service July 26, 2022 Assessment & Plan (1) Acute GI bleeding: Plan 82-year-old male with PMH of CAD status post stents, mitral regurgitation, HTN, HLD presented to the hospital 07/25 with complaint of worsening chest pain since last 2 weeks [employer], with radiation into left arm. 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 Patient denies any NSAID intake. But he does appear to have some GI bleeding issues in the past on and off. 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 Plan for inpatient colonoscopy on Friday. Patient with no further bloody/black bowel movement while in the hospital. Patient is status post 1 unit PRBC on 07/25. Hemoglobin stable above 8. Patient with no chest pain. Continue with pantoprazole, transfusion as appropriate, H&H daily or as n eeded from tomorrow. Avoid NSAIDs. DAPT on hold. 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 Admitting EKG with no signs of acute ischemia. DAPT on hold. No further chest pain while in hospital. 07/25 echo with EF of 60 to 65%, grade 1 diastolic dysfunction. Monitor and replete electrolytes as appropriate. Abdominal aortic aneurysm: Follows vascular surgeon Dr. Huffman. Recent CTA ABD/pelvis with 4.1 x 5.5 cm AAA status postrepair on 07/01/2022. Stable. Other chronic medical conditions: HTN, HLD, GERD --->> continue with/resume home meds as and when appropriate. DVT prophylaxis: SCDs, ambulation, DVT/chemoprophylaxis on hold secondary to GI bleed. Full code Dispo: For colonoscopy on Friday. Admission and Anticipated Discharge Date Admission Date: July 25, 2022 Subjective Patient seen and examined at bedside as a follow-up of likely GI bleed and chest pain. Patient was sitting up in chair, on room air, denies any new acute events overnight, NAD, denies any further bowel movement, denies any further chest pain while in the hospital, recently came from upper scope, reports scratchy throat, plan to resume diet. Patient denies any headache/dizziness/belly pain/pain or burning while passing urine/other review of symptoms. Physical Exam Physical Exam: GENERAL: Alert and oriented x3. NAD, on RA. HEENT: No pallor, no icterus. Pupils equal, round and reactive to light. Oral mucosa moist. NECK: No JVD, no neck masses. HEART: S1 and S2 heard. Regular rate and rhythm. + murmur, no gallop. RESPIRATORY SYSTEM: Normal AP diameter. No accessory muscle use. No wheezing, no crackles. ABDOMEN: Soft, bowel sounds present, nontender, no distention. CENTRAL NERVOUS SYSTEM: No facial droop. Speech is clear. Obeys simple commands. Moves extremities. EXTREMITIES: No edema, no erythema seen. Results & Data Results & Data ([facility]) Vital Signs (Past 12 Hours) Vital Signs Temp Pulse Pulse Resp BP BP Pulse Ox 07/26/22 11:22 36.5 C 78 19 146/83 H 100 07/26/22 09:58 36.4 C L 81 20 163/80 H 98 07/26/22 09:41 77 20 167/87 H 98 07/26/22 09:26 78 20 118/80 98 07/26/22 09:11 78 20 108/67 99 07/26/22 08:46 36.2 C L 88 20 172/88 H 99 07/26/22 07:27 36.8 C 80 20 162/84 H 97 07/26/22 06:55 78 07/26/22 03:29 37.2 C 86 18 124/68 96 O2 Del Method O2 Flow Rate 07/26/22 11:22 Nasal Cannula 2 07/26/22 09:58 Room Air 07/26/22 09:41 Room Air 07/26/22 09:26 Room Air 07/26/22 09:11 Room Air 07/26/22 08:46 Room Air 07/26/22 07:27 Room Air 07/26/22 06:55 07/26/22 03:29 Room Air
[2022-07-26] MEDS ORDERED: CLOPIDOGREL BISULFATE 75 MG TAB PO ONE (15:00)
[2022-07-26 16:05] LABS: Hematocrit (blood only) 26.3 % (40.1-51.0); Hemoglobin 8.7 g/dl (14.0-18.0)
[2022-07-26] MEDS ORDERED: LAVAGE SOLUTION 4000ML PO SCH (17:00)
[2022-07-26] MEDS: MONTELUKAST SODIUM 10 MG TABLET PO SCH (20:00)
[2022-07-26 21:29] LABS: Hematocrit (blood only) 26.3 % (40.1-51.0); Hemoglobin 8.8 g/dl (14.0-18.0)
[2022-07-27 06:14] LABS: Hemoglobin 8.5 g/dl (14.0-18.0); Mean Corpuscular Hemoglobin 31.3 pg (25.0-34.0); Mean Corpuscular Volume 91.9 fL (80.0-100.0); Mean Platelet Volume 9.9 fL (9.4-12.4); Platelet Count 220 K/uL (130-400); RDW Coefficient of Variation 13.7 % (11.5-14.5); RDW Standard Deviation 45.6 fL (36.4-46.3); Red Blood Count 2.72 M/uL (4.63-6.08); White Blood Count 5.76 K/ul (4.8-10.8)
[2022-07-27 06:47] LABS: Albumin Globulin Ratio 1.1 (0.9-2); Albumin Level 3.3 gm/dl (3.4-5.0); BUN Creatinine Ratio 14.7 (10-20); Bilirubin,Total 0.4 mg/dl (0.2-1.0); Creatinine Clr Calc Pharmacy 28.4 ml/min; Est GFR (African American) 38.4 ml/min; Est GFR (Non-African American) 33.2 ml/min; Potassium 3.9 mmol/L (3.5-5.1); Total Protein 6.3 gm/dl (6.0-8.3)
[2022-07-27] MEDS ORDERED: CLOPIDOGREL BISULFATE 75 MG TAB PO SCH (09:00)
[2022-07-27] MEDS ORDERED: PANTOprazole 40 MG TAB PO SCH (09:00)
[2022-07-27] MEDS: amLODIPine BESYLATE 5 MG TAB PO SCH (09:04)
[2022-07-27] MEDS: CHOLECALCIFEROL 1,000 UNITS 25 MCG TAB PO SCH (09:05)
[2022-07-27] MEDS: ATORVASTATIN 10 MG TAB PO SCH (09:05)
[2022-07-27] MEDS: ISOSORBIDE MONO EXTENDED REL 60 MG TABCR PO SCH (09:06)
[2022-07-27] MEDS: LORATADINE 10 MG TAB PO SCH (09:06)
[2022-07-27] MEDS: METOPROLOL TARTRATE 50 MG TAB PO SCH (09:07)
[2022-07-27] MEDS ORDERED: DOCUSATE SODIUM 100 MG CAP PO ONE (10:44)
[2022-07-27] MEDS ORDERED: POLYETHYLENE (MIRALAX) 17 GM PACK PO STA (10:44)
--- NOTE | 2022-07-27 12:02 | Discharge Summary ---
Date of Service July 27, 2022 Admission HPI Per Admitting Provider This is an 82 yo M with PMhx of CAD s/p remote PCI of the mid LAD (stented and has 50% in stent stenosis), hx of stent in the RCA s/p total occlusion, mitral regurg, HTN, HLD, who follows with [facility] with Dr. Zhong. He presented to the hospital today with acute onset of worsening chest pain which radiating into the left arm. For the past 2 weeks he has awoken in the morning to some substernal chest pain, which has been relieved with taking tums. He reports burping several times but then the pain has typically resolved. This morning he awoke to the substernal chest pain and took 2 Tums, however did not relieve the pain. He rated pain as 5/10 and radiated into his left arm. He reports being left-handed and therefore cannot confirm that this was a new pain or if this was a sore pain from doing regular ADLs. He pressed his life alert button and EMS presented to his home, who then administered aspirin and nitro x1 and pain resolved. Currently he is chest pain-free. He admits to some associated shortness of breath but this is a chronic issue for him, as he has history of remote lung cancer where he has had a partial lobectomy. In the past week he has had worsening shortness of breath with ambulation; prior to the recent hot spell with it being 90 degrees outside he was walking 1 mile per day, took the last week off, and upon walking about 0.25 miles he noticed he was significantly short of breath and needed to rest. He does not wear any oxygen at baseline. On further review he reports he has had some issues with GI bleeding in the past on and off and has previously been on iron supplementation but is not currently. Admits to having dark tarry stools for at least 1 week, and had his last bowel movement this morning. There is some bright pink on toilet paper with wiping. He typically is having 1 bowel movement daily. He has previously followed with [facility] gastroenterology but it has been about 1 year since then when he had an EGD. He cannot recall his last colonoscopy. Denies any lightheadedness, dizziness or recent falls. He uses a walking stick for ambulation assistance. Today was found to have hgb of 7.6 and HCT 23.2, where previously in Aug 2021 Hgb/Hct was 11.3/35/3. Previously the patient has followed with [facility] and had an EGD in August 2021 due to abdominal pain and was found to have a hiatal hernia. Social Hx: Pt is a of 8 years, in 2013. 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 Pt currently is working and takes one weekend off every month. Lives at home by himself, has a son and daughter in law who are both physicians. Admission Exam Per Admitting Provider General: awake, alert, no apparent distress, + pallor Head: Normocephalic, atraumatic ENT: PERRL, EOMI, no pharyngeal exudate, mucous membranes moist Chest: Clear to auscultation, on room air, no adventitious breath sounds Cardiac: Pain is not reproducible with palpation on the chest wall, regular rate and rhythm, + soft systolic murmur, no JVD, normal peripheral pulses, good capillary refill Abdominal: NABS x 4 quadrants, soft, nondistended, nontender to palpation, no rebound or guarding Extremities: Normal inspection, no peripheral edema or erythema, calfs nontender to palpation Psych: Normal mood and affect Neuro: AAO x 3, strength intact bilaterally and rated 5/5, no motor deficits, speech is clear, no peripheral sensory deficits Principal Diagnosis GI bleed Likely demand ischemia Discharge Exam GENERAL: Alert and oriented x3. NAD, on RA. HEENT: No pallor, no icterus. Pupils equal, round and reactive to light. Oral mucosa moist. NECK: No JVD, no neck masses. HEART: S1 and S2 heard. Regular rate and rhythm. + murmur, no gallop. RESPIRATORY SYSTEM: Normal AP diameter. No accessory muscle use. No wheezing, no crackles. ABDOMEN: Soft, bowel sounds present, nontender, no distention. CENTRAL NERVOUS SYSTEM: No facial droop. Speech is clear. Obeys simple commands. Moves extremities. EXTREMITIES: No edema, no erythema seen. Discharge Data Allergies Allergy/AdvReac Type Severity Reaction Status Date / Time Penicillins Allergy Mild Rash Verified 04/08/22 14:45 Consultations 07/25/22 10:30 ED Decision to Admit Stat 07/25/22 10:39 Consult Cardiology Routine Consult Gastroenterology Routine Procedures Performed Operation Date: 07/26/22 15:45 Actual Procedures p Esophagogastroduodenoscopy - Ramonita Pretty DO Operation Date: 07/29/22 16:30 <No data on this case meets the specified criteria> Operation Date: 07/30/22 16:30 <No data on this case meets the specified criteria> Ordered Studies 07/25/22 12:06 CTA abd pelvis wo/w con [CT angio abd pelvis wo/w con] Stat Hospital Course (1) Acute GI bleeding: Plan 82-year-old male with PMH of CAD status post stents, mitral regurgitation, HTN, HLD presented to the hospital 07/25 with complaint of worsening chest pain since last 2 weeks COPRA SAMPLER, with radiation into left arm. Patient reports having chest pain on and off ongoing for the last 2 weeks and also reports having black stool for 1 to 2 weeks COPRA SAMPLER. Patient denies any NSAID intake. But he does appear to have some GI bleeding issues in the past on and off. He was managed for the following: GI bleed: Patient reported black stool since 1 to 2 weeks COPRA SAMPLER, admitting hemoglobin of 7.6, 07/26 EGD scope with large hiatal hernia but no source of bleed found. Colonoscopy planned on Friday couldn't happen, hence patient would like to pursue Outpatient colonoscopy. Patient with no further bloody/black bowel movement while in the hospital. Patient is status post 1 unit PRBC on 07/25. Hemoglobin stable above 8. Patient with no chest pain. Continue with pantoprazole, Avoid NSAIDs. Patient advised not to strain while defecating, can use [id number] laxative/stool softener liberally. Patient to call GI office at [facility] to set up appointment if he does not get a call from GI office. Patient to get CBC and CMP done in 5 days upon discharge and have the results forwarded to his primary care physician. Chest pain/likely demand ischemia: Patient presented with chest pain on and off for the last 2 weeks COPRA SAMPLER, troponin elevated and down trended, likely in the setting of acute on chronic anemia likely secondary to GI bleed. Admitting EKG with no signs of acute ischemia. Aspirin discontinued on discharge and Plavix resumed. No further chest pain while in hospital. 07/25 echo with EF of 60 to 65%, grade 1 diastolic dysfunction. Monitor and replete electrolytes as appropriate. Abdominal aortic aneurysm: Follows vascular surgeon Dr. Huffman. Recent CTA ABD/pelvis with 4.1 x 5.5 cm AAA status postrepair on 07/01/2022. Stable. Other chronic medical conditions: HTN, HLD, GERD --->> continue with/resume home meds as and when appropriate. DVT prophylaxis: SCDs, ambulation, DVT/chemoprophylaxis on hold secondary to GI bleed. Full code Patient being discharged home with following instruction at the point of discharge: Follow-up with the primary care physician within a week time. For your GI bleed, GI doctor evaluated you, you will need to call GI office at [facility] for setting up appointment for outpatient colonoscopy. You underwent EGD scope while in here without any identifiable source of bleeding. You are being discharged on Protonix daily. As discussed at the bedside, you are advised not to strain while defecating, you can use liberally laxative/stool softener which are available [id number]. Avoid NSAIDs. For your chest pain likely secondary to acute anemia, cardiology evaluated you, your aspirin has been discontinued upon discharge. Continue with Plavix only upon discharge. Get your blood work CBC and CMP done in 5 days upon discharge and have the results forwarded to your primary care physician. You will have to call PCP office to set up the test. If you have further chest pain or recurrence of GI bleed/lightheadedness/dizziness, you need to contact emergency immediately. Take your medications as prescribed. Total Time Total Time Spent Total Time Spent (In Minutes): 35 Discharge Plan Discharge Items Patient Disposition: Home - Self-Care Reason For Visit: CHEST PAIN,GI BLEED Discharge Diagnosis: GI bleed Likely demand ischemia Condition on Discharge: Fair Activity: Resume your previous activity Non-emergency contact: Primary Care Provider Call non-emergency contact if: you have any medication questions, your symptoms worsen and your temperature is above 101 Follow-up/Referrals: Lexis Jasso [Primary Care Provider] - Diet: Heart Healthy Addtl Attending Provider Instructions: Follow-up with the primary care physician within a week time. For your GI bleed, GI doctor evaluated you, you will need to call GI office at [facility] for setting up appointment for outpatient colonoscopy. You underwent EGD scope while in here without any identifiable source of bleeding. You are being discharged on Protonix daily. As discussed at the bedside, you are advised not to strain while defecating, you can use liberally laxative/stool softener which are available [id number]. Avoid NSAIDs. For your chest pain likely secondary to acute anemia, cardiology evaluated you, your aspirin has been discontinued upon discharge. Continue with Plavix only upon discharge. Get your blood work CBC and CMP done in 5 days upon discharge and have the results forwarded to your primary care physician. You will have to call PCP office to set up the test. If you have further chest pain or recurrence of GI bleed/lightheadedness/dizziness, you need to contact emergency immediately. Take your medications as prescribed. Pending Studies at Discharge: No Stand-Alone Forms: [facility], Smoking Cessation Medications and DC Order Prescriptions: Continued montelukast 10 mg Tablet 10 mg PO QPM Qty: 0 loratadine 10 mg Tablet 10 mg PO QAM Qty: 0 dutasteride 0.5 mg capsule 0.5 mg PO HS Qty: 90 3RF metoprolol tartrate 25 mg Tablet 50 mg PO BID amlodipine 5 mg tablet 10 mg PO QAM pantoprazole 40 mg tablet,delayed release (DR/EC) 40 mg PO DAILY Qty: 30 0RF atorvastatin 10 mg Tablet 10 mg PO DAILY clopidogrel 75 mg Tablet 75 mg PO DAILY allopurinol 100 mg Tablet 100 mg PO 3XWK isosorbide mononitrate 60 mg Tablet Extended Release 24 Hr 60 mg PO DAILY famotidine 20 mg Tablet 20 mg PO BID cholecalciferol (vitamin D3) [Vitamin D3] 50 mcg (2,000 unit) Tablet 50 mcg PO QAM Discontinued aspirin 81 mg Tablet,Delayed Release (Dr/Ec) 81 mg PO DAILY Discharge Orders: Discharge Order (Routine); Ordered 07/27/22 Ordered By: Kathy Langston Admission Data Admit Date/Time: 07/25/22 10:39 Attending Provider: Kathy Langston Admit Provider: Michelle Gill Primary Care Provider: Lexis Jasso Other Providers: Cassius Posey ; Jill Vasquez ; Kathy Langston Other Interventions: Discharge Summary Assessment (RN) Last Done: 07/26/22 09:26
[2022-07-29] MEDS ORDERED: LAVAGE SOLUTION 4000ML PO SCH (17:00)
== END 2022-07-27 14:43 | disposition home or self-care (01) | DRG 378 ==
LOC: ED 08:59 → 2S 10:39

== ENCOUNTER 2022-12-14 18:35 | Observation (INO) ==
--- NOTE | 2022-12-14 19:10 | Emergency Department Note ---
Impression & Plan COVID-19, Acute kidney injury superimposed on chronic kidney disease ED Provider Note HISTORY OF PRESENT ILLNESS: Patient is an 82-year-old male presenting with sinus congestion. He reportedly has been having symptoms for the last 2 to 3 days. He was diagnosed with COVID- 19 earlier today at [facility] urgent care. He called his primary care doctor who referred him to the emergency department for further evaluation. Patient denies any chest pain or shortness of breath. He just reports having nasal congestion. Denies any notable fevers. Denies any headache. Reports a nonproductive cough. Reports has been taking Mucinex at home with some relief of symptoms ROS: as above PHYSICAL EXAM: Constitutional: Patient appears in no acute distress. HENT: Head: Normocephalic and atraumatic. Eyes: EOMI, PERRL Mouth/Throat: Mucous membranes moist. Neck: Trachea midline. Neck supple. Cardiovascular: RRR, No murmurs, rubs or gallops. Intact distal pulses. Pulmonary/Chest: No respiratory distress. Breath sounds clear and equal bilaterally. No wheezes or rales. Abdominal: BS +. Abdomen soft, no tenderness, rebound or guarding. Back: No midline spinal tenderness, no paraspinal tenderness, no CVA tende rness. Musculoskeletal: No edema, tenderness or deformity noted. Skin: Warm and dry. No rash, erythema, pallor or cyanosis Psychiatric: Appropriate mood and affect for situation. Neurological: Alert and keenly responsive. CN II-XII grossly intact, moving all extremities equally and fully. MDM: - Vitals signs showed hypertension. - History obtained via patient. Patient presents after being referred by his doctor. He tested positive for COVID-19 earlier today at an urgent care and when he called his doctor he was referred to the emergency department. Patient denies any chest pain, shortness of breath or significant symptoms. He reports having nasal congestion for the last few days. He states has been taking Mucinex at home with some relief of symptoms - Chronic conditions affecting care: CKD; CAD (s/p PCI); HTN - Differential diagnoses include, but are not limited to: viral syndrome; pneumonia; ACS; bronchitis - Order placed for continuous cardiac monitoring. At this time, monitor showed rate of 83 bpm with normal rhythm, per my interpretation. - External medical records reviewed. Patient admitted for GI bleed in July 2022. - EKG reviewed by myself showed normal sinus rhythm. Rate 76 bpm. No acute ischemic changes. QTc 436. Normal intervals. - Laboratory workup interpreted by myself showed slight leukopenia (WBC 3.81); chronic anemia (Hgb 10.4 - improved from previous in July 2022); CELESTE on CKD (Cr 2.36 - baseline around 1.7); stable electrolytes; normal troponin - CXR negative for acute cardiopulmonary pathology, per my interpretation. - CT chest considered, but patient is having no respiratory complaints and is vitally stable. He is on room air. - Discussion was had with social about patient's case and need for admission. - Hospitalist, Dr. Ramirez, consulted for admission. - Patient was given 1L NS in ER. - Social determinants of health impacting treatment: [homelessness; no medical insurance; addition] - Patient admitted to [facility] service for further evaluation and management. ASSESSMENT AND PLAN: Diagnosis: COVID-19 infection; CELESTE on CKD Plan: discharge Stable at discharge Past Med/Surg History Medical History (Updated 12/14/22 @ 20:18 by Jaylin Terry MD) Anemia recently admitted to [facility] for this Arthritis BPH (benign prostatic hyperplasia) CAD (coronary atherosclerotic disease) "S/P LAD stent" Chronic kidney disease ? STAGE GERD (gastroesophageal reflux disease) Hearing deficit bilat CORREA's History of GI bleed 07/25/22, pt recently admitted to [facility] for gi bleed. pt "unsure of all the details, but know that I was anemic and had a couple pints of blood." HTN (hypertension) Hx of cancer of lung Hx of gout Poor historian Stomach ulcer pt "thinks it's gone now" TIA (transient ischemic attack) X 2 "a few years ago was last one" Surgical History H/O aortic aneurysm repair 2013 AT [facility] H/O heart artery stent X 4 (? DATE-"maybe 5 years ago" "LAST 2 STENTS PLACED AT [facility], OTHER 2 AT [facility]") History of colonoscopy History of left-sided carotid endarterectomy History of tonsillectomy and adenoidectomy History of tooth extraction S/P lobectomy of lung Family History Other No family history of adverse response to anesthesia No significant family history Social History Smoking Status: Former smoker Second Hand Exposure: No; Hx Alcohol Use: Yes ("not any more") Hx Substance Use: No Preferred Language: Azeri Communication Ability: Effective Director Marketing Required: No Beliefs That Will Affect Care: None Current Living Situation: Alone Current Living Situation Comment: HAS A RHEUMATOLOGY SPECIALIST ASSISTS 3X PER WEEK How many Children do You have: 1 Feels Safe at Home: Yes Assistive Devices: Glasses and Hearing Aid - Bilateral Allergies Allergies Allergy/AdvReac Type Severity Reaction Status Date / Time Penicillins Allergy Mild Rash Verified 10/09/22 15:19 Home Meds Home Medications Medication Instructions Recorded Confirmed metoprolol tartrate 25 mg tablet 50 mg PO BID 08/03/18 10/09/22 amlodipine 5 mg tablet 5 mg PO QAM 09/02/18 10/09/22 allopurinol 100 mg tablet 100 mg PO Q2D 08/24/21 10/09/22 atorvastatin 10 mg tablet 10 mg PO HS 08/24/21 10/09/22 cholecalciferol (vitamin D3) 50 50 mcg PO QAM 08/24/21 10/09/22 mcg (2,000 unit) tablet (Vitamin D3) clopidogrel 75 mg tablet 75 mg PO QAM 08/24/21 10/09/22 famotidine 20 mg tablet 20 mg PO HS 08/24/21 10/09/22 isosorbide mononitrate 60 mg 60 mg PO QAM 08/24/21 10/09/22 tablet,extended release 24 hr pantoprazole 40 mg tablet,delayed 40 mg PO QAM 08/01/22 10/09/22 release Previous Rx's Medication Instructions Recorded dutasteride 0.5 mg capsule 0.5 mg PO HS #90 caps 10/09/22 Results & Data (ED) Vital Signs Vital Signs - 24 hr 12/14/22 18:47 12/14/22 19:00 12/14/22 19:00 Temperature 36.4 C L Temperature Source Oral Pulse Rate 80 80 Respiratory Rate 18 20 Respiratory Effort / Characteristics Non-Labored Respiratory Depth Normal Blood Pressure 160/89 H 132/81 Blood Pressure Mean 112 98 Pulse Oximetry 94 94 Oxygen Delivery Method Room Air Sepsis Recent Fever Within 48 Hours No Sepsis New/Unexplained Change in Mental Status No Sepsis Action Taken by Nursing No Action Required 12/14/22 19:30 12/14/22 19:30 Temperature Temperature Source Pulse Rate 80 Respiratory Rate 20 Respiratory Effort / Characteristics Respiratory Depth Blood Pressure 143/77 H Blood Pressure Mean 99 Pulse Oximetry 96 Oxygen Delivery Method Room Air Sepsis Recent Fever Within 48 Hours Sepsis New/Unexplained Change in Mental Status Sepsis Action Taken by Nursing Laboratory Data 12/14/22 19:25 12/14/22 19:25 Lab Results 12/14/22 12/14/22 Range/Units 19:25 19:25 WBC 3.81 L (4.8-10.8) K/ul RBC 3.49 L (4.63-6.08) M/uL Hgb 10.4 L (14.0-18.0) g/dl Hct 31.5 L (40.1-51.0) % MCV 90.3 (80.0-100.0) fL MCH 29.8 (25.0-34.0) pg MCHC 33.0 (32.0-36.0) g/dL RDW Std Deviation 55.5 H (36.4-46.3) fL RDW Coeff of Serene 16.8 H (11.5-14.5) % Plt Count 174 (130-400) K/uL MPV 10.1 (9.4-12.4) fL Immature Gran % (Auto) 0.5 % Neut % (Auto) 47.3 % Lymph % (Auto) 26.2 % Freestone % (Auto) 22.6 % Eos % (Auto) 2.9 % Baso % (Auto) 0.5 % Neut # (Auto) 1.80 (1.4-6.5) K/uL Lymph # (Auto) 1.00 L (1.2-3.4) K/uL Freestone # (Auto) 0.86 H (0.24-0.82) K/uL Eos # (Auto) 0.11 (0-0.50) K/uL Baso # (Auto) 0.02 (0-0.2) K/uL Immature Gran # (Auto) 0.02 (0.00-0.02) K/uL Sodium 136 (136-145) mmol/L Potassium 4.0 (3.5-5.1) mmol/L Chloride 105 (98-107) mmol/L Carbon Dioxide 24 (21-32) mmol/L Anion Gap 7 (3-11) BUN 33 H (6-23) mg/dl Creatinine 2.36 H (0.6-1.4) mg/dl Est Cr Clr Drug Dosing 22.9 ml/min Est GFR ( Amer) 28.4 ml/min Est GFR (Non-Af Amer) 24.5 ml/min BUN/Creatinine Ratio 14.0 (10-20) Glucose 138 H (70-99(Fasting)) mg/dl Calcium 9.0 (8.5-10.1) mg/dl Total Bilirubin 0.5 (0.2-1.0) mg/dl AST 15 (13-39) U/L ALT 8 (7-52) U/L Alkaline Phosphatase 63 (34-104) U/L Troponin I High Sens 15.5 (0-20) pg/ml Total Protein 6.9 (6.0-8.3) gm/dl Albumin 3.6 (3.4-5.0) gm/dl Globulin 3.3 (2.5-4.0) gm/dl Albumin/Globulin Ratio 1.1 (0.9-2) Administered Medications Sodium Chloride (Nss 1000ml) 1,000 mls @ 999 mls/hr IV .Q1H1M ONE Stop: 12/14/22 20:56 Last Admin: 12/14/22 20:04 Dose: 999 mls/hr Documented By: AN Discharge Plan Visit Data Chief Complaint: Illness ED Provider: Jaylin Terry Discharge Problem: COVID-19, Acute kidney injury superimposed on chronic kidney disease Forms Stand Alone Forms: My [facility] Prescriptions Prescriptions: No Action dutasteride 0.5 mg capsule 0.5 mg PO HS Qty: 90 3RF metoprolol tartrate 25 mg Tablet 50 mg PO BID amlodipine 5 mg tablet 5 mg PO QAM pantoprazole 40 mg tablet,delayed release (DR/EC) 40 mg PO QAM atorvastatin 10 mg Tablet 10 mg PO HS clopidogrel 75 mg Tablet 75 mg PO QAM allopurinol 100 mg Tablet 100 mg PO Q2D isosorbide mononitrate 60 mg Tablet Extended Release 24 Hr 60 mg PO QAM famotidine 20 mg Tablet 20 mg PO HS cholecalciferol (vitamin D3) [Vitamin D3] 50 mcg (2,000 unit) Tablet 50 mcg PO QAM Referrals Referrals: Lexis Jasso [Primary Care Provider] -
[2022-12-14 19:34] LABS: Basophils # (auto) 0.02 K/uL (0-0.2); Basophils % (auto) 0.5 %; Eosinophils # (auto) 0.11 K/uL (0-0.50); Eosinophils % (auto) 2.9 %; Hematocrit (blood only) 31.5 % (40.1-51.0); Hemoglobin 10.4 g/dl (14.0-18.0); Immature Granulocytes # (auto) 0.02 K/uL (0.00-0.02); Immature Granulocytes % (auto) 0.5 %; Lymphocytes % (auto) 26.2 %; Mean Corpuscular Hemoglobin 29.8 pg (25.0-34.0); Mean Corpuscular Volume 90.3 fL (80.0-100.0); Mean Platelet Volume 10.1 fL (9.4-12.4); Monocytes # (auto) 0.86 K/uL (0.24-0.82); Monocytes % (auto) 22.6 %; Neutrophils % (auto) 47.3 %; Platelet Count 174 K/uL (130-400); RDW Coefficient of Variation 16.8 % (11.5-14.5); RDW Standard Deviation 55.5 fL (36.4-46.3); Red Blood Count 3.49 M/uL (4.63-6.08); White Blood Count 3.81 K/ul (4.8-10.8)
[2022-12-14 19:53] LABS: Albumin Globulin Ratio 1.1 (0.9-2); Albumin Level 3.6 gm/dl (3.4-5.0); Bilirubin,Total 0.5 mg/dl (0.2-1.0); Creatinine Clr Calc Pharmacy 22.9 ml/min; Est GFR (African American) 28.4 ml/min; Est GFR (Non-African American) 24.5 ml/min; Globulin 3.3 gm/dl (2.5-4.0); Total Protein 6.9 gm/dl (6.0-8.3)
[2022-12-14] MEDS ORDERED: SODIUM CHLORIDE 0.9% 1000ML 1,000 ML IV ONE ×2 (19:56→20:29)
[2022-12-14 20:00] LABS: Troponin I High Sensitivity 15.5 pg/ml (0-20)
--- NOTE | 2022-12-14 20:12 | XRay Report ---
XR chest 1V portable CLINICAL HISTORY: cough; COVID+ TECHNIQUE: Single frontal radiograph of the chest was obtained. Comparison: Comparison is made to chest radiograph 07/25/2022 FINDINGS: No lines and tubes are seen. Cardiomegaly is noted. The lungs are clear. A small left pleural effusio n is seen. IMPRESSION: No acute chest disease. ACT 112: Negative or not required by law. Electronically signed by: Jeyson Arana M.D. 12/14/2022 8:10 PM
[2022-12-14] MEDS ORDERED: METOPROLOL TARTRATE 25 MG TAB PO STA (21:42)
--- NOTE | 2022-12-14 21:50 | History & Physical Report ---
Date of Service December 14, 2022 Assessment & Plan (1) Acute kidney injury superimposed on chronic kidney disease: Plan: Secondary to decreased p.o. 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 OBS Medical telemetry given uncontrolled BP Facilitate home BP meds and titrate as needed Supportive management for COVID-19 illness Baseline UA, monitor creatinine response to IVF PT OT eval DVT prophylaxis. Heparin subcu Full code Patient requests for his son to be given periodic updates. Mr. Damian Pérez ([id number]). Text document was generated using [employer] voice recognition software. It may contain grammatical or spelling errors. Kindly contact undersigned for clarification of any documentation item in question. History of Present Illness Chief Complaint: Congestion Primary Care Provider: Lexis Jasso History obtained from patient and records. 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 Last confinement July 2022 for UGI B. Outpatient EGD was normal. Outpatient sigmoid colonoscopy showed diverticulosis and hemorrhoids. Few days history of congestion and dry cough symptoms. No chest pain. Some shortness of breath with coughing. Poor appetite. Patient not sure about sick contacts. Has completed COVID-19 vaccination. Increasing weakness. No headache. Patient sent to ER for evaluation. SBP 180s at the ER. Medical History as above Surgical History : Aortic aneurysm repair, tonsillectomy/adenoidectomy, carotid endarterectomy dental surgery, lung lobectomy Family History : Heart disease Personal/Social history : Past tobacco abuse, rare EtOH intake Allergies Allergy/AdvReac Type Severity Reaction Status Date / Time Penicillins Allergy Mild Rash Verified 12/14/22 21:15 Home Medications Medication Instructions Recorded Confirmed Type metoprolol tartrate 25 mg tablet 25 mg PO BID 08/03/18 12/14/22 History allopurinol 100 mg tablet 100 mg PO 3XWK 08/24/21 12/14/22 History atorvastatin 10 mg tablet 10 mg PO HS 08/24/21 12/14/22 History cholecalciferol (vitamin D3) 50 50 mcg PO QAM 08/24/21 12/14/22 History mcg (2,000 unit) tablet (Vitamin D3) clopidogrel 75 mg tablet 75 mg PO QAM 08/24/21 12/14/22 History famotidine 20 mg tablet 20 mg PO HS 08/24/21 12/14/22 History isosorbide mononitrate 60 mg 60 mg PO QAM 08/24/21 12/14/22 History tablet,extended release 24 hr pantoprazole 40 mg tablet,delayed 40 mg PO QAM 08/01/22 12/14/22 History release dutasteride 0.5 mg capsule 0.5 mg PO HS #90 caps 10/09/22 12/14/22 Rx amlodipine 2.5 mg tablet 2.5 mg PO QAM 12/14/22 12/14/22 History azelastine-fluticasone 137 mcg-50 2 spray intranasal DIRECTED PRN 12/14/22 12/14/22 History mcg/spray nasal spray Nasal Congestion sohkf-hhietfqu-vwf-turp-pet 1 ea topical DIRECTED PRN .. 12/14/22 12/14/22 History topical ointment ferrous sulfate 325 mg (65 mg 325 mg PO 3XWK 12/14/22 12/14/22 History iron) tablet (FeroSul) guaifenesin 600 mg tablet, 600 mg PO Q12H PRN Congestion 12/14/22 12/14/22 History extended release 12 hr (Mucinex) lutein 25 mg-zeaxanthin 5 mg 1 cap PO DAILY 12/14/22 12/14/22 History capsule (Ocuvite Blue Light) Past Med/Surg History Medical History (Updated 12/14/22 @ 20:18 by Jaylin Terry MD) Anemia recently admitted to [facility] for this Arthritis BPH (benign prostatic hyperplasia) CAD (coronary atherosclerotic disease) "S/P LAD stent" Chronic kidney disease ? STAGE GERD (gastroesophageal reflux disease) Hearing deficit bilat [facility]RE[facility]'s History of GI bleed 07/25/22, pt recently admitted to [facility] for gi bleed. pt "unsure of all the details, but know that I was anemic and had a couple pints of blood." HTN (hypertension) Hx of cancer of lung Hx of gout Poor historian Stomach ulcer pt "thinks it's gone now" TIA (transient ischemic attack) X 2 "a few years ago was last one" Surgical History H/O aortic aneurysm repair 2013 AT [facility] H/O heart artery stent X 4 (? DATE-"maybe 5 years ago" "LAST 2 STENTS PLACED AT [facility], OTHER [address] [facility]") History of colonoscopy History of left-sided carotid endarterectomy History of tonsillectomy and adenoidectomy History of tooth extraction S/P lobectomy of lung Family History Other No family history of adverse response to anesthesia No significant family history Social History Smoking Status: Former smoker Second Hand Exposure: No; Do You Dip or Chew Tobacco: No; Tobacco Cessation Education Requested by Patient: No Hx Alcohol Use: No Hx Substance Use: No Preferred Language: Congolese Communication Ability: Effective Burling And Joining Supervisor Required: No Beliefs That Will Affect Care: None Current Living Situation: Alone Current Living Situation Comment: 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 How many Children do You have: 1 Other Information That Helps Us Care for You: No Feels Safe at Home: Yes Safety Concerns: Feels Safe At This Time Assistive Devices: Cane, Glasses and Hearing Aid - Bilateral Review of Systems Review of Systems: As per HPI, all other systems reviewed and negative Physical Exam Physical Exam: GENERAL: Slightly uncomfortable, occasional coughing, slightly hard of hearing, no respiratory distress SKIN: Pallor, warm HEENT: Bespectacled, pale palpebral conjunctivae, no ptosis, dry buccal mucosa NECK : Supple, no tenderness CHEST : Decreased effort , no tenderness HEART : RRR, systolic murmur ABDOMEN: Some distention, nontender EXTREMITIES : No LE swelling/tenderness, no other conspicuous deformities noted NEUROLOGIC : Coherent, no facial asymmetry, gait and stance not assessed. Results & Data Results & Data ([facility]) Vital Signs (Past 12 Hours) Vital Signs Temp Pulse Resp BP Pulse Ox O2 Del Method 12/14/22 21:00 79 94 Room Air 12/14/22 21:00 180/103 H 12/14/22 20:30 82 16 96 12/14/22 20:30 171/94 H 12/14/22 20:00 81 20 94 Room Air 12/14/22 20:00 152/87 H 12/14/22 19:30 80 20 96 Room Air 12/14/22 19:30 143/77 H 12/14/22 19:00 80 20 94 12/14/22 19:00 132/81 12/14/22 18:47 36.4 C L 80 18 160/89 H 94 Room Air Laboratory Results Laboratory Results WBC 3.81 K/ul (4.8-10.8) L 12/14/22 19:25 RBC 3.49 M/uL (4.63-6.08) L 12/14/22 19:25 Hgb 10.4 g/dl (14.0-18.0) L 12/14/22 19:25 Hct 31.5 % (40.1-51.0) L 12/14/22 19:25 MCV 90.3 fL (80.0-100.0) 12/14/22 19:25 MCH 29.8 pg (25.0-34.0) 12/14/22 19:25 MCHC 33.0 g/dL (32.0-36.0) 12/14/22 19:25 RDW Std Deviation 55.5 fL (36.4-46.3) H 12/14/22 19:25 RDW Coeff of Serene 16.8 % (11.5-14.5) H 12/14/22 19:25 Plt Count 174 K/uL (130-400) 12/14/22 19:25 MPV 10.1 fL (9.4-12.4) 12/14/22 19:25 Immature Gran % (Auto) 0.5 % 12/14/22 19:25 Neut % (Auto) 47.3 % 12/14/22 19:25 Lymph % (Auto) 26.2 % 12/14/22 19:25 Person % (Auto) 22.6 % 12/14/22 19:25 Eos % (Auto) 2.9 % 12/14/22 19:25 Baso % (Auto) 0.5 % 12/14/22 19:25 Neut # (Auto) 1.80 K/uL (1.4-6.5) 12/14/22 19:25 Lymph # (Auto) 1.00 K/uL (1.2-3.4) L 12/14/22 19:25 Person # (Auto) 0.86 K/uL (0.24-0.82) H 12/14/22 19:25 Eos # (Auto) 0.11 K/uL (0-0.50) 12/14/22 19:25 Baso # (Auto) 0.02 K/uL (0-0.2) 12/14/22 19:25 Immature Gran # (Auto) 0.02 K/uL (0.00-0.02) 12/14/22 19:25 Sodium 136 mmol/L (136-145) 12/14/22 19:25 Potassium 4.0 mmol/L (3.5-5.1) 12/14/22 19:25 Chloride 105 mmol/L (98-107) 12/14/22 19:25 Carbon Dioxide 24 mmol/L (21-32) 12/14/22 19:25 Anion Gap 7 (3-11) 12/14/22 19:25 BUN 33 mg/dl (6-23) H 12/14/22 19:25 Creatinine 2.36 mg/dl (0.6-1.4) H 12/14/22 19:25 Est Cr Clr Drug Dosing 22.9 ml/min 12/14/22 19:25 Est GFR ( Amer) 28.4 ml/min 12/14/22 19:25 Est GFR (Non-Af Amer) 24.5 ml/min 12/14/22 19:25 BUN/Creatinine Ratio 14.0 (10-20) 12/14/22 19:25 Glucose 138 mg/dl (70-99(Fasting)) H 12/14/22 19:25 Calcium 9.0 mg/dl (8.5-10.1) 12/14/22 19:25 Magnesium 2.1 mg/dl (1.7-2.4) 12/14/22 19:25 Total Bilirubin 0.5 mg/dl (0.2-1.0) 12/14/22 19:25 AST 15 U/L (13-39) 12/14/22 19:25 ALT 8 U/L (7-52) 12/14/22 19:25 Alkaline Phosphatase 63 U/L (34-104) 12/14/22 19:25 Troponin I High Sens 15.5 pg/ml (0-20) 12/14/22 19:25 Total Protein 6.9 gm/dl (6.0-8.3) 12/14/22 19:25 Albumin 3.6 gm/dl (3.4-5.0) 12/14/22 19:25 Globulin 3.3 gm/dl (2.5-4.0) 12/14/22 19:25 Albumin/Globulin Ratio 1.1 (0.9-2) 12/14/22 19:25 SARS-CoV-2, RNA, NAAT POSITIVE (NEGATIVE) A* 12/14/22 20:16 Impressions Chest X-Ray 12/14/22 19:07 XR chest 1V portable CLINICAL HISTORY: cough; COVID+ TECHNIQUE: Single frontal radiograph of the chest was obtained. Comparison: Comparison is made to chest radiograph 07/25/2022 FINDINGS: No lines and tubes are seen. Cardiomegaly is noted. The lungs are clear. A small left pleural effusion is seen. IMPRESSION: No acute chest disease. ACT 112: Negative or not required by law. Electronically signed by: Jeyson Arana M.D. 12/14/2022 8:10 PM Diagnostic Findings EKG as per my interpretation : Rate 75, NSR, LAD, LAFB, T wave abnormalities inferior leads,
[2022-12-14] MEDS ORDERED: BENZONATATE 100 MG CAPSULE PO PRN (21:54)
[2022-12-14] MEDS ORDERED: PROMETHAZINE HCL 6.25 MG in SODIUM CHLORIDE 0.9% 50 ML IV PRN (21:54)
[2022-12-14] MEDS ORDERED: BENZONATATE 100 MG CAPSULE PO ONE (21:54)
[2022-12-14 22:39] LABS: Appearance Urine Clear (Clear); Bilirubin Urine Negative (Negative); Blood Urine Negative (Negative); Color Urine Yellow; Glucose Urine UA Negative (Negative); Ketones Urine Negative (Negative); Leukocyte Esterase Urine Negative (Negative); Nitrite Urine Negative (Negative); Protein Urine Negative (Negative); Specific Gravity Urine 1.009 (1.000-1.030); Urobilinogen Urine Negative (Negative)
[2022-12-14] MEDS ORDERED: guaiFENesin 600 MG TABCR PO PRN (23:17)
[2022-12-14] MEDS ORDERED: ACETAMINOPHEN 325 MG TAB PO PRN (23:17)
[2022-12-15] MEDS: HEPARIN SOD 5,000 UNIT/0.5 ML VIAL SQ SCH ×2 (05:12→14:31)
[2022-12-15 06:13] LABS: Basophils # (auto) 0.03 K/uL (0-0.2); Basophils % (auto) 0.8 %; Eosinophils % (auto) 5.7 %; Hemoglobin 9.8 g/dl (14.0-18.0); Immature Granulocytes # (auto) 0.01 K/uL (0.00-0.02); Immature Granulocytes % (auto) 0.3 %; Lymphocytes # (auto) 0.88 K/uL (1.2-3.4); Lymphocytes % (auto) 24.9 %; Mean Corpuscular Hemoglobin 29.3 pg (25.0-34.0); Mean Corpuscular Hgb Conc 32.7 g/dL (32.0-36.0); Mean Corpuscular Volume 89.8 fL (80.0-100.0); Mean Platelet Volume 9.2 fL (9.4-12.4); Monocytes # (auto) 0.73 K/uL (0.24-0.82); Monocytes % (auto) 20.7 %; Neutrophils # (auto) 1.68 K/uL (1.4-6.5); Neutrophils % (auto) 47.6 %; Platelet Count 162 K/uL (130-400); RDW Coefficient of Variation 16.6 % (11.5-14.5); RDW Standard Deviation 54.7 fL (36.4-46.3); Red Blood Count 3.34 M/uL (4.63-6.08); White Blood Count 3.53 K/ul (4.8-10.8)
[2022-12-15 06:39] LABS: BUN Creatinine Ratio 14.1 (10-20); Calcium 8.5 mg/dl (8.5-10.1); Creatinine Clr Calc Pharmacy 26.3 ml/min; Est GFR (Non-African American) 30.2 ml/min; Potassium 3.8 mmol/L (3.5-5.1)
[2022-12-15] MEDS ORDERED: AVODART~ORDER AWAITING ACTION SCH (08:00)
[2022-12-15] MEDS ORDERED: CLOPIDOGREL BISULFATE 75 MG TAB PO SCH (09:00)
[2022-12-15] MEDS ORDERED: PANTOprazole 40 MG TAB PO SCH (09:00)
[2022-12-15] MEDS ORDERED: amLODIPine BESYLATE 5 MG TAB PO SCH (09:00)
[2022-12-15] MEDS ORDERED: METOPROLOL TARTRATE 25 MG TAB PO SCH (09:00)
[2022-12-15] MEDS ORDERED: ISOSORBIDE MONO EXTENDED REL 60 MG TABCR PO SCH (09:00)
--- NOTE | 2022-12-15 15:42 | Discharge Summary ---
Date of Service December 15, 2022 Admission HPI Per Admitting Provider History obtained from patient and records. 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 Last confinement July 2022 for UGI B. Outpatient EGD was normal. Outpatient sigmoid colonoscopy showed diverticulosis and hemorrhoids. Few days history of congestion and dry cough symptoms. No chest pain. Some shortness of breath with coughing. Poor appetite. Patient not sure about sick contacts. Has completed COVID-19 vaccination. Increasing weakness. No headache. Patient sent to ER for evaluation. SBP 180s at the ER. Medical History as above Surgical History : Aortic aneurysm repair, tonsillectomy/adenoidectomy, carotid endarterectomy dental surgery, lung lobectomy Family History : Heart disease Personal/Social history : Past tobacco abuse, rare EtOH intake Admission Exam Per Admitting Provider GENERAL: Slightly uncomfortable, occasional coughing, slightly hard of hearing, no respiratory distress SKIN: Pallor, warm HEENT: Bespectacled, pale palpebral conjunctivae, no ptosis, dry buccal mucosa NECK : Supple, no tenderness CHEST : Decreased effort , no tenderness HEART : RRR, systolic murmur ABDOMEN: Some distention, nontender EXTREMITIES : No LE swelling/tenderness, no other conspicuous deformities noted NEUROLOGIC : Coherent, no facial asymmetry, gait and stance not assessed. Principal Diagnosis Acute kidney injury superimposed on chronic kidney disease: COVID 19 Discharge Exam General- No acute distress Head- atraumatic Eyes- PERRL, EOMI, ENT- oropharynx clear Neck- supple, no JVD Lungs- No wheezing Heart- regular rhythm; no murmur Abdomen- normal bowel sounds, soft, nontender Extremities- no calf tenderness Neuro- alert, oriented x 3; PERRL, EOMI; no facial palsy; no dysarthria Skin- warm & dry Discharge Data Allergies Allergy/AdvReac Type Severity Reaction Status Date / Time Penicillins Allergy Mild Rash Verified 12/14/22 21:15 Consultations 12/14/22 20:11 ED Decision to Admit Stat Ordered Studies Laboratory Results WBC 3.53 K/ul (4.8-10.8) L 12/15/22 06:01 RBC 3.34 M/uL (4.63-6.08) L 12/15/22 06:01 Hgb 9.8 g/dl (14.0-18.0) L 12/15/22 06:01 Hct 30.0 % (40.1-51.0) L 12/15/22 06:01 MCV 89.8 fL (80.0-100.0) 12/15/22 06:01 MCH 29.3 pg (25.0-34.0) 12/15/22 06:01 MCHC 32.7 g/dL (32.0-36.0) 12/15/22 06:01 RDW Std Deviation 54.7 fL (36.4-46.3) H 12/15/22 06:01 RDW Coeff of Serene 16.6 % (11.5-14.5) H 12/15/22 06:01 Plt Count 162 K/uL (130-400) 12/15/22 06:01 MPV 9.2 fL (9.4-12.4) L 12/15/22 06:01 Immature Gran % (Auto) 0.3 % 12/15/22 06:01 Neut % (Auto) 47.6 % 12/15/22 06:01 Lymph % (Auto) 24.9 % 12/15/22 06:01 [place] % (Auto) 20.7 % 12/15/22 06:01 Eos % (Auto) 5.7 % 12/15/22 06:01 Baso % (Auto) 0.8 % 12/15/22 06:01 Neut # (Auto) 1.68 K/uL (1.4-6.5) 12/15/22 06:01 Lymph # (Auto) 0.88 K/uL (1.2-3.4) L 12/15/22 06:01 [place] # (Auto) 0.73 K/uL (0.24-0.82) 12/15/22 06:01 Eos # (Auto) 0.20 K/uL (0-0.50) 12/15/22 06:01 Baso # (Auto) 0.03 K/uL (0-0.2) 12/15/22 06:01 Immature Gran # (Auto) 0.01 K/uL (0.00-0.02) 12/15/22 06:01 Sodium 138 mmol/L (136-145) 12/15/22 06:01 Potassium 3.8 mmol/L (3.5-5.1) 12/15/22 06:01 Chloride 108 mmol/L (98-107) H 12/15/22 06:01 Carbon Dioxide 25 mmol/L (21-32) 12/15/22 06:01 Anion Gap 5 (3-11) 12/15/22 06:01 BUN 28 mg/dl (6-23) H 12/15/22 06:01 Creatinine 1.99 mg/dl (0.6-1.4) H D 12/15/22 06:01 Est Cr Clr Drug Dosing 26.3 ml/min 12/15/22 06:01 Est GFR ( Amer) 35.0 ml/min 12/15/22 06:01 Est GFR (Non-Af Amer) 30.2 ml/min 12/15/22 06:01 BUN/Creatinine Ratio 14.1 (10-20) 12/15/22 06:01 Glucose 87 mg/dl (70-99(Fasting)) 12/15/22 06:01 Calcium 8.5 mg/dl (8.5-10.1) 12/15/22 06:01 Magnesium 2.1 mg/dl (1.7-2.4) 12/14/22 19:25 Total Bilirubin 0.5 mg/dl (0.2-1.0) 12/14/22 19:25 AST 15 U/L (13-39) 12/14/22 19:25 ALT 8 U/L (7-52) 12/14/22 19:25 Alkaline Phosphatase 63 U/L (34-104) 12/14/22 19:25 Troponin I High Sens 15.5 pg/ml (0-20) 12/14/22 19:25 Total Protein 6.9 gm/dl (6.0-8.3) 12/14/22 19:25 Albumin 3.6 gm/dl (3.4-5.0) 12/14/22 19:25 Globulin 3.3 gm/dl (2.5-4.0) 12/14/22 19:25 Albumin/Globulin Ratio 1.1 (0.9-2) 12/14/22 19:25 Urine Color Yellow 12/14/22 22:10 Urine Appearance Clear (Clear) 12/14/22 22:10 Urine pH 6.0 (4.5-7.5) 12/14/22 22:10 Ur Specific [place] 1.009 (1.000-1.030) 12/14/22 22:10 Urine Protein Negative (Negative) 12/14/22 22:10 Urine Glucose (UA) Negative (Negative) 12/14/22 22:10 Urine Ketones Negative (Negative) 12/14/22 22:10 Urine Blood Negative (Negative) 12/14/22 22:10 Urine Nitrite Negative (Negative) 12/14/22 22:10 Urine Bilirubin Negative (Negative) 12/14/22 22:10 Urine Urobilinogen Negative (Negative) 12/14/22 22:10 Ur Leukocyte Esterase Negative (Negative) 12/14/22 22:10 SARS-CoV-2, RNA, NAAT POSITIVE (NEGATIVE) A* 12/14/22 20:16 Impressions Chest X-Ray 12/14/22 19:07 XR chest 1V portable CLINICAL HISTORY: cough; COVID+ TECHNIQUE: Single frontal radiograph of the chest was obtained. Comparison: Comparison is made to chest radiograph 07/25/2022 FINDINGS: No lines and tubes are seen. Cardiomegaly is noted. The lungs are clear. A small left pleural effusion is seen. IMPRESSION: No acute chest disease. ACT 112: Negative or not required by law. Electronically signed by: Jeyson Arana M.D. 12/14/2022 8:10 PM Hospital Course (1) Acute kidney injury superimposed on chronic kidney disease: Hx CKD stage 4 Present on admission with Poor oral intake due to COVID 19 Creatinine on admission 2.3 Received IVF, Creatinine improved to 1.9 (baseline around 1.7 to 1.9) Continue to avoid nephrotoxic agents Check BMP in 1 week to monitor renal function Covid 19 Does not meet criteria for when the MCV and dexamethasone since patient saturating well on room air Pt said that he feels fine Continue incentive spirometry Pt was advised to seek urgent medical attention if he develops any SOB Clinically stable CAD (coronary atherosclerotic disease): No cardiac symptoms Continue Plavix, Metoprolol and statin HTN (hypertension): Continue amlodipine 2.5 mg p.o. daily, metoprolol Gout Continue Allopurinol Stable DVT prophylaxis on SCD Code status Full code Disposition Spoke to son Damian over the phone that lives in [place] in detail and answered all his questions Stable from physical therapy to return home with HH Discharge home today with home health (2) COVID-19: Total Time Total Time Spent Total Time Spent (In Minutes): 35 minutes Discharge Plan Discharge Items Patient Disposition: Home - Home Health Services Reason For Visit: HTN URGENCY,ARF,COVID Discharge Diagnosis: Acute kidney injury superimposed on chronic kidney disease: COVID 19 Activity: Resume your previous activity Non-emergency contact: Primary Care Provider Call non-emergency contact if: you have any medication questions, your symptoms worsen and your temperature is above 101 Follow-up/Referrals: Lexis Jasso [Primary Care Provider] - Diet: Heart Healthy Addtl Attending Provider Instructions: Follow up with your primary care provider within 1 week Continue physical and occupation therapy with home care Check BMP in 1 week to monitor your renal function Fall precaution Continue to wear mask and practice social distance Continue incentive spirometry Seek medical attention if you develop any shortness of breath Home Isolation COVID-19 Instructions The following information about Home Isolation is from the CDC Website: https://www.cdc.gov/coronavirus/2019-ncov/hcp/iglotgnz-skxmema-iaadwn.html Stay home except to get medical care People who are mildly ill with COVID-19 are able to isolate at home during their illness. You should restrict activities outside your home, except for getting medical care. Do not go to work, school, or public areas. Avoid using public transportation, ride-sharing, or taxis. Separate yourself from other people and animals in your home People: As much as possible, you should stay in a specific room and away from other people in your home. Also, you should use a separate bathroom, if available. Animals: You should restrict contact with pets and other animals while you are sick with COVID-19, just like you would around other people. Although there have not been reports of pets or other animals becoming sick with COVID-19, it is still recommended that people sick with COVID-19 limit contact with animals until more information is known about the virus. When possible, have another member of your household care for your animals while you are sick. If you are sick with COVID-19, avoid contact with your pet, including petting, snuggling, being kissed or licked, and sharing food. If you must care for your pet or be around animals while you are sick, wash your hands before and after you interact with pets and wear a face mask. Call ahead before visiting your doctor If you have a medical appointment, call the healthcare provider and tell them that you have or may have COVID-19. This will help the healthcare providers office take steps to keep other people from getting infected or exposed. Wear a face mask You should wear a face mask when you are around other people (e.g., sharing a room or vehicle) or pets and before you enter a healthcare providers office. If you are not able to wear a face mask (for example, because it causes trouble breathing), then people who live with you should not stay in the same room with you, or they should wear a face mask if they enter your room. Cover your coughs and sneezes Cover your mouth and nose with a tissue when you cough or sneeze. Throw used tissues in a lined trash can. Immediately wash your hands with soap and water for at least 20 seconds or, if soap and water are not available, clean your hands with an alcohol-based hand desktop support technician that contains at least 60% alcohol. Clean your hands often Wash your hands often with soap and water for at least 20 seconds, especially after blowing your nose, coughing, or sneezing; going to the bathroom; and before eating or preparing food. If soap and water are not readily available, use an alcohol-based hand desktop support technician with at least 60% alcohol, covering all surfaces of your hands and rubbing them together until they feel dry. Soap and water are the best option if hands are visibly dirty. Avoid touching your eyes, nose, and mouth with unwashed hands. Avoid sharing personal household items You should not share dishes, drinking glasses, cups, eating utensils, towels, or bedding with other people or pets in your home. After using these items, they s hould be washed thoroughly with soap and water. Clean all high-touch surfaces everyday High touch surfaces include counters, tabletops, doorknobs, bathroom fixtures, toilets, phones, keyboards, tablets, and bedside tables. Also, clean any surfaces that may have blood, stool, or body fluids on them. Use a household cleaning spray or wipe, according to the label instructions. Labels contain instructions for safe and effective use of the cleaning product including precautions you should take when applying the product, such as wearing gloves and making sure you have good ventilation during use of the product. Monitor your symptoms Seek prompt medical attention if your illness is worsening (e.g., difficulty breathing).Beforeseeking care, call your healthcare provider and tell them that you have, or are being evaluated for, COVID-19. Put on a face mask before you enter the facility. These steps will help the healthcare providers office to keep other people in the office or waiting room from getting infected or exposed. Ask your healthcare provider to call the local or state health department. Persons who are placed under active monitoring or facilitated self- monitoring should follow instructions provided by their local health department or occupational health professionals, as appropriate. When working with your local health department check their available hours. If you have a medical emergency and need to call 911, notify the dispatch personnel that you have, or are being evaluated for COVID-19. If possible, put on a face mask before emergency medical services arrive. Discontinuing home isolation Patients with confirmed COVID-19 should remain under home isolation precautions until the risk of secondary transmission to others is thought to be low. The decision to discontinue home isolation precautions should be made on a [id number] basis, in consultation with healthcare providers and state and local health departments. Coronavirus disease 2019 (COVID-19) is a virus that causes a respiratory illness. It is caused by a coronavirus called 2019 novel coronavirus (2019- nCoV). There are many types of coronavirus. Coronaviruses are a very common cause of bronchitis. They may sometimes cause lung infection(pneumonia). Symptoms can range from mild to severe respiratory illness. These viruses are also foundin some animals. COVID-19 was first found in people in [facility], in late 2018. In 2020, several cases of COVID-19 have been confirmed in the [place] Public health officials are working to find the source. How the virus spreads is not yet fully known. It may be spread through droplets of fluid that a person coughs or sneezes into the air. It may be spread if you touch a surface with virus on it, such as a handle or object, and then touch your mouth. What are the symptoms of COVID-19? Some people have no symptoms or mild symptoms. Symptoms may appear 2 to 14 days after contact with the virus. Symptoms can include: Fever Coughing Trouble breathing What are possible complications from COVID-19? In many cases, this virus can cause infection (pneumonia) in both lungs. In some cases, this can cause . How is COVID-19 diagnosed? Your healthcare provider will ask about your symptoms. He or she will also ask about your recent travel and contact with sick people. Testing for the virus is only done through the [facility]. [facility] thinks you may have COVID- 19, he or she will work with your local health department and the CDC on testing. Follow all instructions from your healthcare provider. COVID-19 is diagnosed by: Nasal and throat swab. A cotton-tipped swab is wiped inside your nose or throat. This is done to check for viruses in your nasal mucus. Sputum culture. A small sample of mucus coughed from your lungs (sputum) is collected if you have a cough. It is checked for the virus. How is COVID-19 treated? There is currently no medicine to treat the virus. Treatment is done to help your body while it fights the virus. This is known as supportive care. Supportive care may include: Pain medicine. These include acetaminophen and ibuprofen. They are used to help ease pain and reduce fever. Bed rest. This helps your body fight the illness. For severe illness, you may need to stay in the hospital. Care during severe illness may include: IV (intravenous) fluids.These are given through a vein to help keep your body hydrated. Oxygen. Supplemental oxygen or ventilation with a breathing machine (ventilator) may be given. This is done to keep enough oxygen in your body. Are you at risk for COVID-19? If youve been to a place where people have been sick with this virus, you are at risk for infection. You are at risk if you: Recently traveled to an affected area Had contact with a sick person who recently traveled to this area Had contact with a person who was diagnosed with COVID-19 How can COVID-19 be prevented? There is no vaccine yet. The best prevention is to not have contact with the virus. The CDC advises that people should not travel to areas where there are COVID-19 outbreaks right now for any reason that is not urgent. To help prevent spreading the infection, wash your hands often, or use an alcohol-basedhand desktop support technician. If you are in an area with COVID-19: Wash your hands often. Or use an alcohol-based hand desktop support technician often. Only touch your eyes, nose, or mouth with clean hands. Dont have contact with people who are sick. Follow local instructions about being in public. For example, you may be told to not use public transport for a period of time. Stay away from markets that have live or animals. Wash your hands after touching any animals. Don't touch animals that may be sick. Dont share eating or drinking tools with sick people. Dont kiss someone who is sick. Clean surfaces often with disinfectant. If you were in an area with COVID-19 in the last 14 days: Call your healthcare provider. He or she can talk with local health staff to see what action may be needed. Follow all instructions from your provider. Take your temperature every morning and evening for at least 14 days. This is to check for fever. Keep a record of the readings. Keep watch for symptoms of the virus. Tell your provider right away if you have symptoms. If you were in an area with COVID-19 and have a fever or other symptoms: Dont panic. Keep in mind that other illnesses can cause similar symptoms. Stay away from work, school, and public places. Limit physical contact with family members. Don't kiss anyone or share eating or drinking utensils. Clean surfaces you touch with disinfectant. This is to help prevent the virus from spreading. Call your healthcare provider. Explain that you have been exposed to COVID-19 and have symptoms. Do this before going to any hospital. Wait for instructions. Keep in mind that healthcare staff may wear protective equipment such as masks, gowns, gloves, and eye protection. You may be put in a separate room. This is to prevent the possible virus from spreading. Tell the healthcare staff about recent travel. This includes local travel on public transport. Staff may need to find other people you have been in contact with. Follow all instructions the healthcare staff give you. If you have been diagnosed with COVID-19 Follow all instructions from your healthcare provider. Dont leave your home, except to get medical care. Call your healthcare providers office before going. They can prepare and give you instructions. This will help prevent the virus from spreading. Dont go to work, school, or public areas. Dont use public transport or taxis. Stay away from other people in your home. Have them wear face masks around you. Dont share household items or food. Wear a face mask if you can. This includes at home or in a medical facility. Cover your face with a tissue when you cough or sneeze. Throw the tissue away. Wash your hands. Wash your hands often. Caregivers should: Follow all instructions from healthcare staff. Wear a face mask and protective clothing as advised. Wash hands often. Keep track of the sick persons symptoms. Clean surfaces, fabrics, and laundry thoroughly. Keep other people away from the sick person. When to call your healthcare provider Call your healthcare provider: If youve recently traveled and have symptoms If you have been diagnosed with COVID-19 and your symptoms are worse To learn more To find out more about COVID-19, visit the CDC website at www.cdc.gov/coronavirus/2019-ncov/index.html. 2824-[address] [employer] [place] [address], [place] [address]. All rights reserved. This information is not intended as a substitute for professional medical care. Always follow your healthcare professional's instructions. This information has been adapted from [employer] Pending Studies at Discharge: No Stand-Alone Forms: [facility] [employer], Smoking Cessation Medications and DC Order Prescriptions: Continued dutasteride 0.5 mg capsule 0.5 mg PO HS Qty: 90 3RF metoprolol tartrate 25 mg Tablet 25 mg PO BID pantoprazole 40 mg tablet,delayed release (DR/EC) 40 mg PO QAM amlodipine 2.5 mg tablet 2.5 mg PO QAM Vicks Vaporub Ointment 1 ea TOPICAL DIRECTED PRN (Reason: ..) ferrous sulfate [FeroSul] 325 mg (65 mg iron) tablet 325 mg PO 3XWK Rx Instructions: Take mon, wed, fri azelastine-fluticasone 137-50 mcg/spray spray,non-aerosol 2 spray INTRANASAL DIRECTED PRN (Reason: Nasal Congestion) lutein-zeaxanthin [Ocuvite Blue Light] 25-5 mg capsule 1 cap PO DAILY guaifenesin [Mucinex] 600 mg Tablet Extended Release 12hr 600 mg PO Q12H PRN (Reason: Congestion) atorvastatin 10 mg Tablet 10 mg PO HS clopidogrel 75 mg Tablet 75 mg PO QAM allopurinol 100 mg Tablet 100 mg PO 3XWK Rx Instructions: Take mon, wed, fri isosorbide mononitrate 60 mg Tablet Extended Release 24 Hr 60 mg PO QAM famotidine 20 mg Tablet 20 mg PO HS cholecalciferol (vitamin D3) [Vitamin D3] 50 mcg (2,000 unit) Tablet 50 mcg PO QAM Discharge Orders: Discharge Order (Routine); Ordered 12/15/22 Ordered By: Nano Alfaro Admission Data Admit Date/Time: 12/14/22 21:53 Attending Provider: Nano Alfaro Admit Provider: Sammy Sandoval Primary Care Provider: Lexis Jasso Other Providers: Sammy Sandoval
[2022-12-15] MEDS ORDERED: ATORVASTATIN 10 MG TAB PO SCH (21:00)
[2022-12-15] MEDS ORDERED: FAMOTIDINE 20 MG TAB PO SCH (21:00)
--- NOTE | 2022-12-15 22:12 | Electrocardiogram Report ---
Test Reason : Blood Pressure : / mmHG Vent. Rate : 076 BPM Atrial Rate : 076 BPM P-R Int : 162 ms QRS Dur : 084 ms QT Int : 388 ms P-R-T Axes : -18 005 017 degrees QTc Int : 436 ms Normal sinus rhythm Normal ECG When compared with ECG of 26-JUL-2022 05:25, No significant change was found Confirmed by Reymundo Mckeon ([id number]) on 12/15/2022 10:12:29 PM Referred By: REFERRED SELF Confirmed By:Reymundo Mckeon
[2022-12-16] MEDS ORDERED: FERROUS SULFATE 325 MG TAB PO SCH (09:00)
[2022-12-16] MEDS ORDERED: allopurinoL 100 MG TAB PO SCH (09:00)
== END 2022-12-15 16:05 | disposition home health service (06) ==
LOC: 2N 18:35 → ED 18:35 → 2N 22:25
DX: I50.32 Chronic diastolic (congestive) heart failure; Z87.891 Personal history of nicotine dependence; M10.9 Gout, unspecified; Z88.0 Allergy status to penicillin; I25.10 Atherosclerotic heart disease of native coronary artery without angina pectoris; N17.9 Acute kidney failure, unspecified; I13.0 Hypertensive heart and chronic kidney disease with heart failure and stage 1 through stage 4 chronic kidney disease, or unspecified chronic kidney disease; Z79.899 Other long term (current) drug therapy; I16.0 Hypertensive urgency; N18.4 Chronic kidney disease, stage 4 (severe); I27.20 Pulmonary hypertension, unspecified; U07.1 COVID-19

== ENCOUNTER 2023-01-16 23:14 | Observation (INO) ==
[2023-01-16] MEDS ORDERED: OPTIRAY 320 500ml IV ONE (23:32)
--- NOTE | 2023-01-16 23:49 | Emergency Department Note ---
History of Present Illness General Chief complaint: Stroke Alert Stated complaint: STROKE Time Seen by Provider: 01/16/23 23:18 Source: EMS History of Present Illness Provider complaint: Facial droop aphasia Onset (ago): hour(s) 2 82-year-old male presents emergency department via EMS for strokelike symptoms. Per EMS at 2130 the patient started having expressive aphasia and facial droop. EMS reports that the patient's expressive aphasia has improved since arrival. Patient is not on any blood thinners except for Plavix. Home Medications Medication Instructions Recorded Confirmed Type metoprolol tartrate 25 mg tablet 25 mg PO BID 08/03/18 01/16/23 History allopurinol 100 mg tablet 100 mg PO 3XWK 08/24/21 01/16/23 History atorvastatin 10 mg tablet 10 mg PO HS 08/24/21 01/16/23 History cholecalciferol (vitamin D3) 50 50 mcg PO QAM 08/24/21 01/16/23 History mcg (2,000 unit) tablet (Vitamin D3) clopidogrel 75 mg tablet 75 mg PO QAM 08/24/21 01/16/23 History famotidine 20 mg tablet 20 mg PO HS 08/24/21 01/16/23 History isosorbide mononitrate 60 mg 60 mg PO QAM 08/24/21 01/16/23 History tablet,extended release 24 hr pantoprazole 40 mg tablet,delayed 40 mg PO QAM 08/01/22 01/16/23 History release dutasteride 0.5 mg capsule 0.5 mg PO HS #90 caps 10/09/22 01/16/23 Rx amlodipine 2.5 mg tablet 2.5 mg PO QAM 12/14/22 01/16/23 History azelastine-fluticasone 137 mcg-50 2 spray intranasal DIRECTED PRN 12/14/22 01/16/23 History mcg/spray nasal spray Nasal Congestion ewoot-xdfuqahg-pyz-turp-pet 1 ea topical DIRECTED PRN Pain 12/14/22 01/16/23 History topical ointment ferrous sulfate 325 mg (65 mg 325 mg PO 3XWK 12/14/22 01/16/23 History iron) tablet (FeroSul) guaifenesin 600 mg tablet, 600 mg PO Q12H PRN Congestion 12/14/22 01/16/23 History extended release 12 hr (Mucinex) lutein 25 mg-zeaxanthin 5 mg 1 cap PO DAILY 12/14/22 01/16/23 History capsule (Ocuvite Blue Light) Allergies Allergy/AdvReac Type Severity Reaction Status Date / Time Penicillins Allergy Intermediate Rash Verified 01/16/23 23:34 Past Med/Surg History Medical History Acute kidney injury superimposed on chronic kidney disease Anemia recently admitted to [facility] for this Arthritis BPH (benign prostatic hyperplasia) CAD (coronary atherosclerotic disease) "S/P LAD stent" Chronic kidney disease ? STAGE COVID-19 GERD (gastroesophageal reflux disease) Hearing deficit bilat CORREA's History of GI bleed 07/25/22, pt recently admitted to [facility] for gi bleed. pt "unsure of all the details, but know that I was anemic and had a couple pints of blood." HTN (hypertension) Hx of cancer of lung Hx of gout Poor historian Stomach ulcer pt "thinks it's gone now" TIA (transient ischemic attack) X 2 "a few years ago was last one" Surgical History H/O aortic aneurysm repair 2013 AT [facility] H/O heart artery stent X 4 (? DATE-"maybe 5 years ago" "LAST 2 STENTS PLACED AT [facility], OTHER 2 AT [facility]") History of colonoscopy History of left-sided carotid endarterectomy History of tonsillectomy and adenoidectomy History of tooth extraction S/P lobectomy of lung Family History Other No family history of adverse response to anesthesia No significant family history Social History Smoking Status: Former smoker Second Hand Exposure: No; Hx Alcohol Use: No Hx Substance Use: No Preferred Language: Amharic Communication Ability: Effective Police Liaison Officer Required: No Beliefs That Will Affect Care: None Current Living Situation: Alone Current Living Situation Comment: 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 How many Children do You have: 1 Feels Safe at Home: Yes Assistive Devices: None Physical Exam Vital Signs Vital Signs - 24 hr 01/16/23 23:33 01/16/23 23:37 01/16/23 23:56 Temperature 36.5 C Temperature Source Temporal Artery Scan Pulse Rate 88 85 Pulse Rate [Right] 90 Respiratory Rate 16 18 Respiratory Effort / Characteristics Non-Labored Spontaneous Non-Labored Spontaneous Respiratory Depth Normal Normal Blood Pressure 147/105 H Blood Pressure [Right Arm] 195/116 H Blood Pressure Mean 119 Blood Pressure Mean [Right Arm] 142 Blood Pressure Position Lying Pulse Oximetry 96 95 Oxygen Delivery Method Room Air Room Air Sepsis Recent Fever Within 48 Hours No Sepsis New/Unexplained Change in Mental Status N/A Sepsis Action Taken by Nursing No Action Required 01/17/23 00:10 Temperature Temperature Source Pulse Rate Pulse Rate [Right] 86 Respiratory Rate 16 Respiratory Effort / Characteristics Non-Labored Spontaneous Respiratory Depth Normal Blood Pressure Blood Pressure [Right Arm] 179/106 H Blood Pressure Mean Blood Pressure Mean [Right Arm] 130 Blood Pressure Position Pulse Oximetry 94 Oxygen Delivery Method Room Air Sepsis Recent Fever Within 48 Hours Sepsis New/Unexplained Change in Mental Status Sepsis Action Taken by Nursing Physical Exam HENT: Exam performed. - Head: Normocephalic and atraumatic. - Mouth/Throat: The oropharynx is clear and moist. No trismus in the jaw. No dental abscesses or uvula swelling. No oropharyngeal exudate or tonsillar abscesses. EYES: Conjunctivae and EOM are normal. Pupils are equal, round, and reactive to light. Right eye exhibits no discharge. Left eye exhibits no discharge. No scl eral icterus. NECK: Normal range of motion. Neck supple. No JVD present. No spinous process tenderness present. CV: Normal rate, regular rhythm, normal heart sounds and intact distal pulses. There is no peripheral edema. Palpable radial pulses bue. PULM/CHEST: Effort normal and breath sounds normal. No respiratory distress. No stridor. He has no wheezes. He has no rales. ABD: The abdomen is soft. NEURO:NIHSS: 2 (4:1, 9:1) SKIN: Skin is warm and dry. He is not diaphoretic. Course Course 230: Received call from EMS. Code stroke called prior to patient's arrival. 2317: The patient was evaluated in room B1. A complete history and physical exam was performed Cardiac monitoring: An order was placed for continuous cardiac monitoring. The monitor shows a rate of 85 with sinus rhythm interpreted by me NIHSS: 2 2331:CT of the head viewed by me shows no ICH. Spoke with Dr. Ron James teleneurology who will evaluate the patient. 0020: Vital signs have improved. Symptoms have improved slightly in the pa tiejennifer's speech. Patient is not a TNK candidate per Erika teleneurology. Recommend aspirin 81 mg and labetalol 10 mg at this time. He recommends admission and EEG with MRIs. Patient will be admitted to [facility] Hospitalist team Dr. Hurd was notified. Administered Medications Discontinued Medications Ioversol (Optiray 320 500ml) 125 ml IV ONCE ONE Stop: 01/16/23 23:33 Last Admin: 01/16/23 23:33 Dose: 109 ml Documented By: SHEILA Critical Care Time Critical Care Time: Yes Total Critical Care Time: 38 I have personally spent greater than 38 minutes of critical care time in the direct management of this patient. This includes bedside care, interpretation of diagnostic studies, and testing, discussion with consultants, patient, and family members, and other required patient management activities. This 38 minutes is in excess of all separately billable procedures. Medical Decision Making Medical Records Attestation: I reviewed the patient's medical records. External medical records reviewed. Patient has a history of strokelike symptoms in 2018 with expressive aphasia Laboratory Data Attestation: I reviewed the patient's lab results. 01/16/23 23:36 01/16/23 23:36 Lab Results 01/16/23 01/16/23 01/16/23 Range/Units 23:36 23:36 23:36 WBC 3.90 L (4.8-10.8) K/ul RBC 3.10 L (4.70-6.10) M/uL Hgb 9.5 L (14.0-18.0) g/dl Hct 28.5 L (42.0-52.0) % MCV 91.9 (80.0-100.0) fL MCH 30.6 (25.0-34.0) pg MCHC 33.3 (32.0-36.0) g/dL RDW Std Deviation 52.9 H (36.4-46.3) fL RDW Coeff of Serene 15.6 H (11.5-14.5) % Plt Count 195 (130-400) K/uL MPV 9.5 (9.4-12.4) fL Immature Gran % (Auto) 1.0 % Neut % (Auto) 57.5 % Lymph % (Auto) 18.7 % Lake % (Auto) 15.6 % Eos % (Auto) 6.7 % Baso % (Auto) 0.5 % Neut # (Auto) 2.24 (1.40-6.50) K/uL Lymph # (Auto) 0.73 L (1.2-3.4) K/uL Lake # (Auto) 0.61 H (0.11-0.59) K/uL Eos # (Auto) 0.26 (0-0.50) K/uL Baso # (Auto) 0.02 (0-0.2) K/uL Immature Gran # (Auto) 0.04 (0.01-0.20) K/uL PT 11.4 (9.0-12.0) Seconds INR 1.1 (0.9-1.1) APTT 26.4 (21.0-31.0) Seconds PTT Ratio 1.0 Sodium 133 L (136-145) mmol/L Potassium 3.6 (3.5-5.1) mmol/L Chloride 103 (98-107) mmol/L Carbon Dioxide 26 (21-32) mmol/L Anion Gap 4 (3-11) BUN 26 H (6-23) mg/dl Creatinine 1.94 H (0.6-1.4) mg/dl Est Cr Clr Drug Dosing 28.2 ml/min Est GFR ( Amer) 36.0 ml/min Est GFR (Non-Af Amer) 31.1 ml/min BUN/Creatinine Ratio 13.4 (10-20) Glucose 121 H (70-99(Fasting)) mg/dl POC Glucose (70-99) mg/dl Calcium 8.6 (8.5-10.1) mg/dl Magnesium 1.9 (1.7-2.4) mg/dl Total Bilirubin 0.4 (0.2-1.0) mg/dl AST 12 L (13-39) U/L ALT 8 (7-52) U/L Alkaline Phosphatase 50 (34-104) U/L Troponin I High Sens 14.5 (0-20) pg/ml Total Protein 6.0 (6.0-8.3) gm/dl Albumin 3.1 L (3.4-5.0) gm/dl Globulin 2.9 (2.5-4.0) gm/dl Albumin/Globulin Ratio 1.1 (0.9-2) 01/16/23 Range/Units 23:41 WBC (4.8-10.8) K/ul RBC (4.70-6.10) M/uL Hgb (14.0-18.0) g/dl Hct (42.0-52.0) % MCV (80.0-100.0) fL MCH (25.0-34.0) pg MCHC (32.0-36.0) g/dL RDW Std Deviation (36.4-46.3) fL RDW Coeff of Serene (11.5-14.5) % Plt Count (130-400) K/uL MPV (9.4-12.4) fL Immature Gran % (Auto) % Neut % (Auto) % Lymph % (Auto) % Lake % (Auto) % Eos % (Auto) % Baso % (Auto) % Neut # (Auto) (1.40-6.50) K/uL Lymph # (Auto) (1.2-3.4) K/uL Lake # (Auto) (0.11-0.59) K/uL Eos # (Auto) (0-0.50) K/uL Baso # (Auto) (0-0.2) K/uL Immature Gran # (Auto) (0.01-0.20) K/uL PT (9.0-12.0) Seconds INR (0.9-1.1) APTT (21.0-31.0) Seconds PTT Ratio Sodium (136-145) mmol/L Potassium (3.5-5.1) mmol/L Chloride (98-107) mmol/L Carbon Dioxide (21-32) mmol/L Anion Gap (3-11) BUN (6-23) mg/dl Creatinine (0.6-1.4) mg/dl Est Cr Clr Drug Dosing ml/min Est GFR ( Amer) ml/min Est GFR (Non-Af Amer) ml/min BUN/Creatinine Ratio (10-20) Glucose (70-99(Fasting)) mg/dl POC Glucose 127 H (70-99) mg/dl Calcium (8.5-10.1) mg/dl Magnesium (1.7-2.4) mg/dl Total Bilirubin (0.2-1.0) mg/dl AST (13-39) U/L ALT (7-52) U/L Alkaline Phosphatase (34-104) U/L Troponin I High Sens (0-20) pg/ml Total Protein (6.0-8.3) gm/dl Albumin (3.4-5.0) gm/dl Globulin (2.5-4.0) gm/dl Albumin/Globulin Ratio (0.9-2) Imaging Data My Impression: CT head: No ICH Radiologist's Impression: PreliminaryFindingsOnly See Final Report For Complete Findings CT HEAD: No evidence of acute intracranial pathology. Remote ischemic injuryof the left frontal lobe with encephalomalacia and gliosis. Remote left cerebellar ischemic injury. Mild to moderate nonspecific white matter changes. Left lens replacement. No comparisons. Radiologist: Judith Christianson MD Study ready at 23:44 and initial results transmitted at 23:57 Communications: Clear Time Type Notes Call Doctor Stroke PreliminaryFindingsOnly See Final Report For Complete Findings CTAHEAD: Negative CT angiogramof the head. Comparison made to prior MRAof the brain fromSeptember 03, 2018. Radiologist: Judith Christianson MD Study ready at 23:43 and initial results transmitted at 23:55 Communications: Clear Time Type Notes Call Doctor Stroke PreliminaryFindingsOnly See Final Report For Complete Findings CTANECK: There is a 70%stenosis of the proximal right ICA. Patient is status post left carotid energeticallywith expected postsurgical changes. The vertebral arteries are unremarkable. No comparisons. Findings concerning for bronchitiswith pneumonitis. Prominent mediastinal lymph nodes. Dental carieswith large periapical lucencyabout tooth 14 and #32 concerning for periapical abscess. Recommend dental consult. Radiologist: Judith Christianson MD Study ready at 23:43 and initial results transmitted at 23:50 Communications: Clear Time Type Notes Call Doctor Stroke ECG Data Attestation: I personally reviewed and interpreted this ECG as follows: Indication: + other (cva) Rate (beats per minute): 84 Rhythm: + normal sinus ECG Intervals/blocks: + Normal QRS, + Normal MD and + Normal QT-c ECG ST segments: + Normal ST segments [facility] Narrative 2300: Received call from EMS. Code stroke called prior to patient's arrival. 2318: The patient was evaluated in room B1. A complete history and physical exam was performed Cardiac monitoring: An order was placed for continuous cardiac monitoring. The monitor shows a rate of 85 with sinus rhythm interpreted by me NIHSS: 2 2331:CT of the head viewed by me shows no ICH. Spoke with Dr. Ron James teleneurology who will evaluate the patient. 0020: Vital signs have improved. Symptoms have improved slightly in the patient's speech. Patient is not a TNK candidate per Erika borgesneurology. Recommend aspirin 81 mg and labetalol 10 mg at this time. He recommends admission and EEG with MRIs. Patient will be admitted to [facility] hospitalist team Dr. Hurd was notified. Impression & Plan Brain TIA Discharge Plan Visit Data Chief Complaint: Stroke Alert Stated Complaint: STROKE ED Provider: Daryl Burnham Discharge Problem: Brain TIA Patient Disposition: Admitted As Inpatient Forms Stand Alone Forms: [facility] Prescriptions Prescriptions: No Action dutasteride 0.5 mg capsule 0.5 mg PO HS Qty: 90 3RF metoprolol tartrate 25 mg Tablet 25 mg PO BID pantoprazole 40 mg tablet,delayed release (DR/EC) 40 mg PO QAM amlodipine 2.5 mg tablet 2.5 mg PO QAM uiuee-juoiniqr-hph-turp-pet Ointment 1 ea TOPICAL DIRECTED PRN (Reason: Pain) ferrous sulfate [FeroSul] 325 mg (65 mg iron) tablet 325 mg PO 3XWK Rx Instructions: Take mon, wed, fri azelastine-fluticasone 137-50 mcg/spray spray,non-aerosol 2 spray INTRANASAL DIRECTED PRN (Reason: Nasal Congestion) lutein-zeaxanthin [Ocuvite Blue Light] 25-5 mg capsule 1 cap PO DAILY guaifenesin [Mucinex] 600 mg Tablet Extended Release 12hr 600 mg PO Q12H PRN (Reason: Congestion) atorvastatin 10 mg Tablet 10 mg PO HS clopidogrel 75 mg Tablet 75 mg PO QAM allopurinol 100 mg Tablet 100 mg PO 3XWK Rx Instructions: Take mon, wed, fri isosorbide mononitrate 60 mg Tablet Extended Release 24 Hr 60 mg PO QAM famotidine 20 mg Tablet 20 mg PO HS cholecalciferol (vitamin D3) [Vitamin D3] 50 mcg (2,000 unit) Tablet 50 mcg PO QAM Referrals Referrals: Lexis Jasso [Primary Care Provider] -
[2023-01-16 23:53] LABS: Basophils # (auto) 0.02 K/uL (0-0.2); Basophils % (auto) 0.5 %; Eosinophils # (auto) 0.26 K/uL (0-0.50); Eosinophils % (auto) 6.7 %; Hematocrit (blood only) 28.5 % (42.0-52.0); Hemoglobin 9.5 g/dl (14.0-18.0); Immature Granulocytes # (auto) 0.04 K/uL (0.01-0.20); Lymphocytes # (auto) 0.73 K/uL (1.2-3.4); Lymphocytes % (auto) 18.7 %; Mean Corpuscular Hemoglobin 30.6 pg (25.0-34.0); Mean Corpuscular Hgb Conc 33.3 g/dL (32.0-36.0); Mean Corpuscular Volume 91.9 fL (80.0-100.0); Mean Platelet Volume 9.5 fL (9.4-12.4); Monocytes # (auto) 0.61 K/uL (0.11-0.59); Monocytes % (auto) 15.6 %; Neutrophils # (auto) 2.24 K/uL (1.40-6.50); Neutrophils % (auto) 57.5 %; Platelet Count 195 K/uL (130-400); RDW Coefficient of Variation 15.6 % (11.5-14.5); RDW Standard Deviation 52.9 fL (36.4-46.3)
[2023-01-17 00:08] LABS: Albumin Globulin Ratio 1.1 (0.9-2); Albumin Level 3.1 gm/dl (3.4-5.0); BUN Creatinine Ratio 13.4 (10-20); Bilirubin,Total 0.4 mg/dl (0.2-1.0); Calcium 8.6 mg/dl (8.5-10.1); Creatinine Clr Calc Pharmacy 28.2 ml/min; Est GFR (Non-African American) 31.1 ml/min; Globulin 2.9 gm/dl (2.5-4.0); Magnesium 1.9 mg/dl (1.7-2.4); Potassium 3.6 mmol/L (3.5-5.1)
[2023-01-17 00:13] LABS: Troponin I High Sensitivity 14.5 pg/ml (0-20)
[2023-01-17] MEDS ORDERED: ASPIRIN 81 MG CHEW PO STA (00:15)
[2023-01-17 00:19] LABS: INR 1.1 (0.9-1.1); Partial Thromboplastin Time 26.4 Seconds (21.0-31.0); Prothrombin Time 11.4 Seconds (9.0-12.0)
[2023-01-17] MEDS ORDERED: LABETALOL HCL IV 5 MG/ML 20ML IV STA (00:20)
[2023-01-17] MEDS ORDERED: ASPIRIN CHEW 324 MG PO STA (00:20)
[2023-01-17] MEDS ORDERED: ASPIRIN 81 MG CHEW ONE (00:24)
[2023-01-17] MEDS ORDERED: SODIUM CHLORIDE 0.9% 1000ML 1,000 ML IV SCH (02:38)
[2023-01-17] MEDS ORDERED: EUCALYPTUS OIL TOP PRN (02:38)
[2023-01-17] MEDS ORDERED: NITROGLYCERIN SL 0.4 MG/TAB TAB SL PRN (02:38)
[2023-01-17] MEDS ORDERED: POLYETHYLENE (MIRALAX) 17 GM PACK PO PRN (02:38)
[2023-01-17] MEDS ORDERED: guaiFENesin 600 MG TABCR PO PRN (02:38)
[2023-01-17] MEDS ORDERED: [UNRECOGNIZED DRUG - OTHER] TOP PRN (02:38)
[2023-01-17] MEDS ORDERED: CAMPHOR TOP PRN (02:38)
[2023-01-17] MEDS ORDERED: PETROLATUM TOP PRN (02:38)
[2023-01-17] MEDS ORDERED: PHARMACIST DISCHARGE MED REC CONSULT PRN (02:38)
[2023-01-17] MEDS ORDERED: MENTHOL TOP PRN (02:38)
[2023-01-17] MEDS ORDERED: ACETAMINOPHEN 325 MG TAB PO PRN (02:38)
[2023-01-17 06:09] LABS: Basophils # (auto) 0.02 K/uL (0-0.2); Basophils % (auto) 0.5 %; Eosinophils # (auto) 0.27 K/uL (0-0.50); Eosinophils % (auto) 6.8 %; Hematocrit (blood only) 29.5 % (42.0-52.0); Hemoglobin 9.7 g/dl (14.0-18.0); Immature Granulocytes # (auto) 0.05 K/uL (0.01-0.20); Immature Granulocytes % (auto) 1.3 %; Lymphocytes # (auto) 0.66 K/uL (1.2-3.4); Lymphocytes % (auto) 16.5 %; Mean Corpuscular Hemoglobin 30.4 pg (25.0-34.0); Mean Corpuscular Hgb Conc 32.9 g/dL (32.0-36.0); Mean Corpuscular Volume 92.5 fL (80.0-100.0); Mean Platelet Volume 9.7 fL (9.4-12.4); Monocytes # (auto) 0.54 K/uL (0.11-0.59); Monocytes % (auto) 13.5 %; Neutrophils # (auto) 2.45 K/uL (1.40-6.50); Neutrophils % (auto) 61.4 %; Platelet Count 217 K/uL (130-400); RDW Coefficient of Variation 15.6 % (11.5-14.5); RDW Standard Deviation 53.1 fL (36.4-46.3); Red Blood Count 3.19 M/uL (4.70-6.10); White Blood Count 3.99 K/ul (4.8-10.8)
[2023-01-17 06:14] LABS: BUN Creatinine Ratio 13.9 (10-20); Calcium 9.2 mg/dl (8.5-10.1); Chol HDL Ratio 3.3 (0-5); Creatinine Clr Calc Pharmacy 29.7 ml/min; Est GFR (African American) 39.5 ml/min; Potassium 3.7 mmol/L (3.5-5.1)
--- NOTE | 2023-01-17 06:47 | History and Physical Report ---
DATE OF ADMISSION: 01/17/2023 CHIEF COMPLAINT: Stroke-like symptoms. HISTORY OF PRESENT ILLNESS: This is an 82-year-old male with past medical history significant for chronic diastolic CHF, EF of 60-65% on echo in 2021, history of CAD status post stent, history of peripheral vascular disease, history of abdominal aortic aneurysm repair, history of carotid endarterectomy, history of valvular heart disease and mild AR, moderate MR/TR, history of hypertension, pulmonary hypertension, history of TIA, history of lung cancer, status post surgery, chronic kidney disease, baseline creatinine around 2, chronic anemia, baseline hemoglobin around 10, history of past tobacco abuse, history of upper GI bleed, presents with stroke-like symptoms. The patient lives alone.At 9pm today he was bending down to black pickler the TV remote when the batteries spilled over and same time his son called him, when he answered the call to son , he was having trouble speaking, . Son called half hour later he still was having some symptoms and advised to come to the ER. The patient says he had similar kind of symptoms in the past, resolved on their own. It did not happen in last two years and this time also it lasted for half an hour and got resolved. Currently when he came in, stroke alert was called. Initial workup is unremarkable. There was some facial droop, when he came in, it looks like it is much improved. His speech is clear now. He says he ambulates okay. No difficulty swallowing. Denies any headache. No chest pain, no shortness of breath, no nausea, no abdominal pain. Normal bowel and bladder movements. He has some cough, and has chronic runny nose, no fever. Hemodynamically stable.Lives alone. ALLERGIES: PENICILLIN. PAST MEDICAL HISTORY: As mentioned above. PAST SURGICAL HISTORY: Aortic aneurysm repair, tonsillectomy and adenoidectomy, carotid endarterectomy, dental surgery, lung lobectomy. FAMILY HISTORY: Significant for heart disease. SOCIAL HISTORY: hx of tobacco abuse. Alcohol, occasional. REVIEW OF SYSTEMS: As per HPI. Rest of review of systems is negative. MEDICATIONS: The patient is on allopurinol 100 mg p.o. 3 times week, amlodipine 2.5 mg p.o. a.m., atorvastatin 10 mg p.o. at bedtime, azelastine/fluticasone 2 sprays intranasal p.r.n., vitamin D 50 mcg p.o. a.m., Plavix 75 mg p.o. daily, dutasteride 0.5 mg p.o. at bedtime, famotidine 20 mg p.o. at bedtime, ferrous sulfate 325 mg p.o. 3 times daily, Mucinex 600 mg p.o. b.i.d. p.r.n., isosorbide mononitrate 60 mg p.o. a.m., Ocuvite Blue Light one capsule p.o. daily, metoprolol tartrate 25 mg p.o. b.i.d., Protonix 40 mg p.o. daily. PHYSICAL EXAMINATION: GENERAL: The patient is alert, oriented, not in acute distress. VITAL SIGNS: Temperature 36.5, pulse 84, respiratory rate 16, blood pressure 192/105, oxygen 96% on room air. HEENT: Pupils equal, round and reactive to light. Oral mucosa moist. NECK: No JVD or neck masses. CARDIOVASCULAR: S1 and S2 heard. Regular rate and rhythm. No murmur, no gallop. RESPIRATORY SYSTEM: Normal AP diameter. No accessory muscle use. No wheezing, no crackles. ABDOMEN: Soft, bowel sounds present, nontender, no distention. CENTRAL NERVOUS SYSTEM: Alert and oriented. Speech is clear. No obvious facial droop seen. Power 5/5 in all extremities. Coordination of movements normal. No pronator drift. Sensation is intact. Position sense intact. EXTREMITIES: No edema, no erythema. LABORATORY DATA: WBC 3.9, hemoglobin 9.5, hematocrit 28.5, platelets 195. PT 11.4, INR 1.1, APTT 26.4. Sodium 133, potassium 3.6, chloride 103, CO2 of 26, BUN 36, creatinine 1.9, serum glucose 121, calcium 8.6, magnesium 1.9, total bilirubin 0.4, AST 12, ALT 8, alkaline phosphatase 50. Troponin I high sensitivity 14.5. SARS-CoV-2 rapid test negative. IMAGING DATA: Neck CTA: 70% stenosis of the proximal right ICA. The patient is status post left carotid endarterectomy. Vertebral arteries are unremarkable. Findings concerning for bronchitis and pneumonia. Head CTA, preliminary report, negative CT angiogram of the head. CT of the head without contrast, 1. No acute intracranial findings. 2. 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 EKG: Normal sinus rhythm, rate of 84, no acute ST changes seen. ASSESSMENT AND PLAN: This is an 82-year-old male who presents with stroke-like symptoms. 1. Stroke-like symptoms: Possible transient ischemic attack. This patient has history of TIAs in the past. He had similar episodes in the past. He had some difficulty speaking from 9:30 to 10:00 p.m. tonight. Initial stroke workup with CTA of the head and neck and CTA of the neck are unremarkable. CT head showing old CVA. The patient is on low dose statin and Plavix. We will do stroke workup with MRI scan, lipid profile, HbA1c levels, echocardiogram, PT/OT, monitor in the tele. Speech consult in a.m. and neuro consult in a.m. Closely monitor neuro checks. 2. History of lung cancer, status post lobectomy. 3. History of chronic diastolic congestive heart failure. Will monitor for any volume overload. We will follow echocardiogram. 4. History of coronary artery disease, status post stent. Continue his Plavix, statin and beta jesus and Imdur Currently stable. 5. History of abdominal aortic aneurysm repair and history of left carotid endarterectomy. On Plavix and statin. 6. Hypertension. Continue home medications of Imdur and metoprolol tartrate. We will hold amlodipine to allow for permissive hypertension. We will monitor the blood pressure. 7. Chronic kidney disease, his baseline creatinine is around 2, current creatinine of 1.9. Follow the repeat labs. 8. Chronic anemia, hemoglobin around 10, current hemoglobin 9.5. We will follow the repeat labs. 9. History of gout: On allopurinol. 10. Deep venous thrombosis prophylaxis: Sequential compression devices for now. DISPOSITION: Closely monitor in the tele floor. Level 1 full code. Expect to discharge home and follow with family doctor. Social service to help with discharge planning. Job ID: [id number] [facility] HOSPITALBrittani
--- NOTE | 2023-01-17 07:09 | Magnetic Resonance Report ---
MRI OF THE BRAIN WITHOUT CONTRAST CLINICAL HISTORY: Slurred speech. Confusion. Evaluate for cerebrovascular accident. COMPARISON STUDY: Head CT and CTA of the head January 16, 2023. MRI of the brain September 02, 2018. TECHNIQUE: Utilizing a 1.5 Daniela magnet and dedicated coil, multiplanar, multiecho imaging of the bra in was performed without IV contrast. FINDINGS: There are no foci of restricted diffusion to suggest acute infarct. No acute intracranial h emorrhage, midline shift or mass effect is present. Asymmetric dilatation of the left lateral ventric le is due to atrophy and several old infarcts. Left basal ganglia infarcts were shown on previous MRI . Left frontoparietal infarct is new since previous MRI but chronic. Several old infarcts within left cerebellar hemisphere are present. Basal cisterns are patent. There are no extra-axial collections. Flow-voids for the major intracranial vessels are present. Suspected posterior right nasal cavity benitez yp is noted. Mild polypoid mucosal thickening in the right sphenoid sinus is incidentally noted. Calv arial signal is normal. IMPRESSION: 1. No acute intracranial findings. 2. Multiple old infarcts, as above. ACT 112: Negative or not required by law. Electronically signed by: Blair Robles M.D. 01/17/2023 7:07 AM
--- NOTE | 2023-01-17 07:18 | CT Scan Report ---
CT OF THE HEAD WITHOUT CONTRAST CLINICAL HISTORY: neuro deficit, acute stroke suspected COMPARISON STUDY: Head CT and MRI of the brain September 02, 2018. TECHNIQUE: Helical axial images of the head were obtained without IV contrast. Automated exposure con trol was utilized for the study. A dose lowering technique was utilized adhering to the principles o f ALARA. FINDINGS: No acute intracranial hemorrhage, midline shift or mass effect is present. Old left basal g anglia infarcts are again noted. These are shown on prior exam. Left frontoparietal infarcts are new since prior exam but chronic. Several old lacunar infarcts within the left cerebellar hemisphere are present. Asymmetric dilatation of the left lateral ventricle is due to these old infarct. The basal c isterns are patent. There are no extra-axial collections. No acute calvarial fracture. IMPRESSION: 1. No acute intracranial findings. 2. Several old infarcts, as above. ACT 112: Negative or not required by law. Electronically signed by: Blair Robles M.D. 01/17/2023 7:15 AM
--- NOTE | 2023-01-17 07:25 | CT Scan Report ---
CTA ANGIOGRAPHY OF THE HEAD CLINICAL HISTORY: neuro deficit, acute stroke suspected COMPARISON STUDY: MRA of the head September 03, 2018. TECHNIQUE: Helical axial images of the head were obtained following uneventful intravenous administr ation of 109 cc of Optiray. Sagittal and coronal reconstructions were viewed as well as maximal inten sity projections on an independent 3-D workstation. Automated exposure control was utilized for the study. A dose lowering technique was utilized adhering to the principles of ALARA. FINDINGS: The head CT will be reported separately. No acute intracranial hemorrhage is noted on this exam. 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 Basal cisterns are patent. There are no extra-axial collections. There is extensive plaque within the bilateral cavernou s carotids. This results in moderate stenosis of the right cavernous carotid. There is no central ves katt occlusion. No intracranial aneurysm. There is moderate stenosis of the right P2 segment. Posterio r circulation is otherwise unremarkable. IMPRESSION: 1. No central vessel occlusion. No intracranial aneurysm. 2. Moderate multifocal stenoses within the intracranial vessels, as above. ACT 112: Negative or not required by law. Electronically signed by: Blair Robles M.D. 01/17/2023 7:22 AM
[2023-01-17 07:45] LABS: Estimated Average Glucose 140 mg/dl; Hemoglobin A1C 6.5 % (4.5-5.6)
--- NOTE | 2023-01-17 08:48 | CT Scan Report ---
CT angio neck with con CLINICAL HISTORY: neuro deficit, acute stroke suspected TECHNIQUE: CT angiography of the neck was performed following intravenous administration of iodinated contrast. Coronal and sagittal MIPS were obtained from the axial data set and were submitted for rev iew. Automated dose lowering techniques and/or adjustment according to patient size were utilized fo r this examination. All measurements were calculated based on NASCET criteria. CT DOSE: 1258.02 mGy.cm Comparison: Prior MRI neck 09/03/2018 FINDINGS: Biapical emphysema is seen. CTA Neck: A 3 vessel aortic arch is shown. Atherosclerotic plaque is present in the aortic arch and at the origin of the great vessels. Retropharyngeal course of the carotid arteries noted. There is 70 % stenosis of the right internal carotid artery which may be stable to mildly increased from prior MR A neck. The vertebral arteries are codominant. IMPRESSION: 70% stenosis of the right internal carotid artery may be stable to mildly increased from prior MRI ne ck. Assessment of stenosis of the internal carotid arteries is based on NASCET criteria. ACT 112: Negative or not required by law. Electronically signed by: Jeyson Arana M.D. 01/17/2023 8:46 AM
[2023-01-17] MEDS ORDERED: METOPROLOL TARTRATE 25 MG TAB PO SCH (09:00)
[2023-01-17] MEDS ORDERED: PANTOprazole 40 MG TAB PO SCH (09:00)
[2023-01-17] MEDS ORDERED: allopurinoL 100 MG TAB PO SCH (09:00)
[2023-01-17] MEDS ORDERED: CLOPIDOGREL BISULFATE 75 MG TAB PO SCH (09:00)
[2023-01-17] MEDS ORDERED: ISOSORBIDE MONO EXTENDED REL 60 MG TABCR PO SCH (09:00)
[2023-01-17] MEDS ORDERED: FERROUS SULFATE 325 MG TAB PO SCH (09:00)
[2023-01-17] MEDS ORDERED: CHOLECALCIFEROL 1,000 UNITS 25 MCG TAB PO SCH (09:00)
--- NOTE | 2023-01-17 10:21 | XRay Report ---
XR chest 1V portable CLINICAL HISTORY: neuro deficit, acute stroke suspected TECHNIQUE: Single frontal radiograph of the chest was obtained. Comparison: Comparison is made to chest radiograph 12/14/[address] chest 08/10/2014 FINDINGS: No lines and tubes are seen. The cardiomediastinal silhouette is normal. The lungs are clear. Redemon stration of postsurgical changes of left upper lobectomy. There is blunting of the left costophrenic angle which is compatible with previously noted pleural thickening. IMPRESSION: No acute abnormality is seen. Redemonstration of left upper lobectomy and pleural thickening. ACT 112: Negative or not required by law. Electronically signed by: Jeyson Arana M.D. 01/17/2023 10:20 AM
--- NOTE | 2023-01-17 11:05 | Neurology Consultation ---
Date of Consultation January 17, 2023 Assessment & Plan (1) TIA (transient ischemic attack): Plan NEUROLOGY CONSULTATION Assessment & Plan: Impression: pt with transient speech change now resolved. maybe TIA if any. mri brain negative. Recommendations: not much to offer at this point. no longer need permissive HtN continue plavix and statin and stroke risk modifications. avoid hypotension and sudden position change. will sign off. Dr. Ciro Luna MD [facility] Chief Complaint: speech change History of Present Illness: HPI: pt this morning feeling well and back to himself. no more speech change. able to speak well and no problem swallowing. mri brain negative. chart reviewed. Admission/Initial HPI documentation: This is an 82-year-old male with past medical history significant for chronic diastolic CHF, EF of 60-65% on echo in 2021, history of CAD status post stent, history of peripheral vascular disease, history of abdominal aortic aneurysm repair, history of carotid endarterectomy, history of valvular heart disease and mild AR, moderate MR/TR, history of hypertension, pulmonary hypertension, history of TIA, history of lung cancer, status post surgery, chronic kidney disease, baseline creatinine around 2, chronic anemia, baseline hemoglobin around 10, history of past tobacco abuse, history of upper GI bleed, presents with stroke-like symptoms. 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 Son called half hour later he still was having some symptoms and advised to come to the ER. The patient says he had similar kind of symptoms in the past, resolved on their own. It did not happen in last two years and this time also it lasted for half an hour and got resolved. Currently when he came in, stroke alert was called. Initial workup is unremarkable. There was some facial droop, when he came in, it looks like it is much improved. His speech is clear now. He says he ambulates okay. No difficulty swallowing. Denies any headache. No chest pain, no shortness of breath, no nausea, no abdominal pain. Normal bowel and bladder movements. He has some cough, and has chronic runny nose, no fever. Hemodynamically stable.Lives alone. Past Medical History: See chart Meds: See chart I personally reviewed all of the medications Social & Family History: See chart Review of Systems: Per initial HPI on admission. Physical Exam: GEN: NAD HEENT: Normocephalic Neuro: Mental status:A & O x 3.No dysarthria or aphasia.No neglect. Fluent speech. No apraxia Cranial Nerves:II-XII intact Motor:Normal bulk and tone,5/5 strength x 4 extremities Coordination:Intact Reflexes: down going toes ilene Sensation: Intact x 4 extremities to touch Chart reviewed I have spent more than 50% educating patient about potential diagnosis and neurological evaluation and coordinating care with patient's treatment team. Total time spent (including chart review and coordination of care): 80 min (this includes chart review). History of Present Illness Attending Physician: Kathy Langston MD Allergies Allergy/AdvReac Type Severity Reaction Status Date / Time Penicillins Allergy Intermediate Rash Verified 01/16/23 23:34 Home Medications Medication Instructions Recorded Confirmed Type metoprolol tartrate 25 mg tablet 25 mg PO BID 08/03/18 01/16/23 History allopurinol 100 mg tablet 100 mg PO 3XWK 08/24/21 01/16/23 History atorvastatin 10 mg tablet 10 mg PO HS 08/24/21 01/16/23 History cholecalciferol (vitamin D3) 50 50 mcg PO QAM 08/24/21 01/16/23 History mcg (2,000 unit) tablet (Vitamin D3) clopidogrel 75 mg tablet 75 mg PO QAM 08/24/21 01/16/23 History famotidine 20 mg tablet 20 mg PO HS 08/24/21 01/16/23 History isosorbide mononitrate 60 mg 60 mg PO QAM 08/24/21 01/16/23 History tablet,extended release 24 hr pantoprazole 40 mg tablet,delayed 40 mg PO QAM 08/01/22 01/16/23 History release dutasteride 0.5 mg capsule 0.5 mg PO HS #90 caps 10/09/22 01/16/23 Rx amlodipine 2.5 mg tablet 2.5 mg PO QAM 12/14/22 01/16/23 History azelastine-fluticasone 137 mcg-50 2 spray intranasal DIRECTED PRN 12/14/22 01/16/23 History mcg/spray nasal spray Nasal Congestion kpzfk-bksvembd-wlh-turp-pet 1 ea topical DIRECTED PRN Pain 12/14/22 01/16/23 History topical ointment ferrous sulfate 325 mg (65 mg 325 mg PO 3XWK 12/14/22 01/16/23 History iron) tablet (FeroSul) guaifenesin 600 mg tablet, 600 mg PO Q12H PRN Congestion 12/14/22 01/16/23 History extended release 12 hr (Mucinex) lutein 25 mg-zeaxanthin 5 mg 1 cap PO DAILY 12/14/22 01/16/23 History capsule (Ocuvite Blue Light) Patient History Medical History Acute kidney injury superimposed on chronic kidney disease Anemia recently admitted to [facility] for this Arthritis BPH (benign prostatic hyperplasia) CAD (coronary atherosclerotic disease) "S/P LAD stent" Chronic kidney disease ? STAGE COVID-19 GERD (gastroesophageal reflux disease) Hearing deficit bilat CORREA's History of GI bleed 07/25/22, pt recently admitted to [facility] for gi bleed. pt "unsure of all the details, but know that I was anemic and had a couple pints of blood." HTN (hypertension) Hx of cancer of lung Hx of gout Poor historian Stomach ulcer pt "thinks it's gone now" TIA (transient ischemic attack) X 2 "a few years ago was last one" Surgical History H/O aortic aneurysm repair 2013 AT [facility] H/O heart artery stent X 4 (? DATE-"maybe 5 years ago" "LAST 2 STENTS PLACED AT [facility], OTHER 2 AT [facility]") History of colonoscopy History of left-sided carotid endarterectomy History of tonsillectomy and adenoidectomy History of tooth extraction S/P lobectomy of lung Family History Other No family history of adverse response to anesthesia No significant family history Social History Smoking Status: Former smoker Second Hand Exposure: No; Do You Dip or Chew Tobacco: No; Hx Alcohol Use: No Hx Substance Use: No Preferred Language: Bahamian Communication Ability: Effective Licensing Coordinator Required: No Beliefs That Will Affect Care: None Current Living Situation: Alone Current Living Situation Comment: HAS A NEGATIVE NOTCHER ASSISTS 3X PER WEEK How many Children do You have: 1 Feels Safe at Home: Yes Safety Concerns: Feels Safe At This Time Assistive Devices: Glasses and Hearing Aid - Bilateral Results & Data ([facility]) Vital Signs (Past 12 Hours) Vital Signs Temp Pulse Pulse Resp BP BP Pulse Ox 01/17/23 07:16 36.6 C 78 14 156/87 H 95 01/17/23 06:00 75 01/17/23 04:15 01/17/23 04:08 36.7 C 82 16 152/99 H 96 01/17/23 03:00 01/17/23 02:32 01/17/23 02:31 81 20 156/91 H 94 01/17/23 01:30 86 16 137/86 93 01/17/23 00:51 84 16 192/105 H 96 01/17/23 00:10 86 16 179/106 H 94 01/16/23 23:56 90 18 195/116 H 95 01/16/23 23:37 85 01/16/23 23:33 36.5 C 88 16 147/105 H 96 Pulse Ox O2 Del Method O2 Del Method 01/17/23 07:16 Room Air 01/17/23 06:00 Room Air 01/17/23 04:15 Room Air 01/17/23 04:08 Room Air 01/17/23 03:00 96 Room Air 01/17/23 02:32 Room Air 01/17/23 02:31 Room Air 01/17/23 01:30 Room Air 01/17/23 00:51 Room Air 01/17/23 00:10 Room Air 01/16/23 23:56 Room Air 01/16/23 23:37 01/16/23 23:33 Room Air
--- NOTE | 2023-01-17 13:25 | Pharmacy Report ---
- Date of Service January 17, 2023 - Pharmacy CVA/TIA Medication Review Medications to Prevent Stroke handout has been added to the patients discharge packet. Antiplatelet(s) * clopidogrel 75mg PO daily Cholesterol * Atorvastatin 10mg daily [moderate intensity statin]- High intensity statin deferred due to age >75, LDL 65mg/dL DVT Prophylaxis * SCD thigh Therapeutic Anticoagulation * No history of Afib/Aflutter noted Type 2 Diabetes * [id number]-1.5% consistent with diabetes-- Per hospitalist, will pursue lifestyle modifications for 3 months with PCP follow up. Plan for chemical educator to evaluate prior to discharge. A diabetes medication with proven CVD benefit will then be deferred to their outpatient provider due to familiarity with risks/benefits of such therapies. "Medications to prevent stroke" handout has already been added to the patient's discharge packet, which instructs the patient to follow up with their outpatient provider to evaluate which diabetes medication with proven CVD benefit is best for them.
[2023-01-17] MEDS ORDERED: STROKE PATIENT DISCHARGE STA (13:32)
--- NOTE | 2023-01-17 13:32 | Discharge Summary ---
Date of Service January 17, 2023 Admission HPI Per Admitting Provider DATE OF ADMISSION: 01/17/2023 CHIEF COMPLAINT: Stroke-like symptoms. HISTORY OF PRESENT ILLNESS: This is an 82-year-old male with past medical history significant for chronic diastolic CHF, EF of 60-65% on echo in 2021, history of CAD status post stent, history of peripheral vascular disease, history of abdominal aortic aneurysm repair, history of carotid endarterectomy, history of valvular heart disease and mild AR, moderate MR/TR, history of hypertension, pulmonary hypertension, history of TIA, history of lung cancer, status post surgery, chronic kidney disease, baseline creatinine around 2, chronic anemia, baseline hemoglobin around 10, history of past tobacco abuse, history of upper GI bleed, presents with stroke-like symptoms. The patient lives alone.At 9pm today he was bending down to pickler helper the TV remote when the batteries spilled over and same time his son called him, when he answered the call to son , he was having trouble speaking, . Son called half hour later he still was having some symptoms and advised to come to the ER. The patient says he had similar kind of symptoms in the past, resolved on their own. It did not happen in last two years and this time also it lasted for half an hour and got resolved. Currently when he came in, stroke alert was called. Initial workup is unremarkable. There was some facial droop, when he came in, it looks like it is much improved. His speech is clear now. He says he ambulates okay. No difficulty swallowing. Denies any headache. No chest pain, no shortness of breath, no nausea, no abdominal pain. Normal bowel and bladder movements. He has some cough, and has chronic runny nose, no fever. Hemodynamically stable.Lives alone. ALLERGIES: PENICILLIN. PAST MEDICAL HISTORY: As mentioned above. PAST SURGICAL HISTORY: Aortic aneurysm repair, tonsillectomy and adenoidectomy, carotid endarterectomy, dental surgery, lung lobectomy. FAMILY HISTORY: Significant for heart disease. SOCIAL HISTORY: hx of tobacco abuse. Alcohol, occasional. REVIEW OF SYSTEMS: As per HPI. Rest of review of systems is negative. Admission Exam Per Admitting Provider GENERAL: The patient is alert, oriented, not in acute distress. VITAL SIGNS: Temperature 36.5, pulse 84, respiratory rate 16, blood pressure 192/105, oxygen 96% on room air. HEENT: Pupils equal, round and reactive to light. Oral mucosa moist. NECK: No JVD or neck masses. CARDIOVASCULAR: S1 and S2 heard. Regular rate and rhythm. No murmur, no gallop. RESPIRATORY SYSTEM: Normal AP diameter. No accessory muscle use. No wheezing, no crackles. ABDOMEN: Soft, bowel sounds present, nontender, no distention. CENTRAL NERVOUS SYSTEM: Alert and oriented. Speech is clear. No obvious facial droop seen. Power 5/5 in all extremities. Coordination of movements normal. No pronator drift. Sensation is intact. Position sense intact. EXTREMITIES: No edema, no erythema. Principal Diagnosis TIA Discharge Exam GENERAL: Alert and oriented x3. NAD, on RA. HEENT: No pallor, no icterus. Pupils equal, round and reactive to light. Oral mucosa moist. NECK: No JVD, no neck masses. HEART: S1 and S2 heard. Regular rate and rhythm. No murmur, no gallop. RESPIRATORY SYSTEM: Normal AP diameter. No accessory muscle use. No wheezing, no crackles. ABDOMEN: Soft, bowel sounds present, nontender, no distention. CENTRAL NERVOUS SYSTEM: No facial droop. Speech is clear. Obeys simple commands. Moves extremities. EXTREMITIES: No edema, no erythema seen. Discharge Data Allergies Allergy/AdvReac Type Severity Reaction Status Date / Time Penicillins Allergy Intermediate Rash Verified 01/16/23 23:34 Consultations 01/17/23 00:08 ED Decision to Admit Stat 01/17/23 08:00 Consult Neurology Routine Ordered Studies 01/16/23 23:18 CT angio head w con Stat CT angio neck with con Stat CT head/brain wo con Stat 01/17/23 02:38 MR brain wo con Urgent Hospital Course (1) Brain TIA: Plan 82-year-old man with PMH of chronic diastolic CHF [EF 60 to 65% in echo 2021], CAD status post stent, PVD, AAA repair, carotid endarterectomy, valvular heart disease and mild MR/moderate MR & TR, HTN, pulmonary hypertension, TIA, lung cancer status post surgery, CKD with baseline creatinine around 2, chronic anemia, past tobacco abuse, history of GI bleed presented with strokelike symptoms in the ED on 01/16. Patient underwent a stroke work-up with troponin, EKG, CTA head and neck, brain MRI, CT head which were negative for any new acute findings. Echo was obtained and reviewed. Patient reports having trouble speaking for half an hour, no focal weakness or generalized body weakness. Patient is completely able to articulate clearly and at his baseline at bedside exam and reports his symptoms has been resolved since then. Neurology evaluated, appreciate their recommendation. Patient is also found to have A1c of 6.5%, patient counseled regarding diabetes management in his complex situation of history of TIA/stroke/multiple vascular diseases. Patient opted for lifestyle modification for the time being and would like to follow-up with his PCP for ongoing care of his newly diagnosed diabetes. para educator will be consulted prior to discharge. PT/OT/speech evaluated the patient. Patient reports doing better and is at his baseline and would like to go home today. Lipid panel w/ LDL of 65. Follow up w/ pcp for ongoing HLD Mx. By CMS guidelines, a determination that the admission or continued stay is not medically necessary has been made by a member of the Utilization Review committee and a physician for this hospital stay. Therefore, a Code 44 will be completed and the inpatient admission will be changed to outpatient. Following instructions were communicated at the point of discharge: Follow-up with your primary care physician within a week time and likely you will need labs CBC/CMP/magnesium/phosphorus. For your newly diagnosed diabetes with A1c of 6.5%, you opted for lifestyle modification, our nurse informatics educator will meet you prior to your discharge today. Recommend to closely follow-up with your PCP for ongoing evaluation for your diabetes management and likely you will need repeat A1c level in 3 months. Continue to take your stroke medications as prior. Home Health Attestation I certify that this patient is under my care and that I, or a physicians events and promotions assistant working with me, had a face to-face encounter that meets the home health ujdp-ia-rves encounter requirements with this patient. The encounter with the patient was in whole, or in part, for the following medical condition, which is the primary reason for home health care (list medical condition): I certify that, based on my findings, the following services are medically necessary home health services: My clinical findings support the need for the above services because: Further, I certify that my clinical findings support that this patient is homebound (i.e. absences from home require considerable and taxing effort and are for medical reasons or hoahaoism services or infrequently or of short duration when for other reasons) because: Certification for Home Health Services: Based on the above findings, I certify that this patient is confined to the home and needs intermittent senior living care, physical therapy and/or speech therapy or continues to need occupational therapy. The patient is under my care, and I have initiated the establishment of the plan of care. This patient will be followed by a physician who will periodically review the plan of care. Total Time Total Time Spent Total Time Spent (In Minutes): 45 Discharge Plan Discharge Items Patient Disposition: Home - Self-Care Reason For Visit: STROKE SYMPTOMS Discharge Diagnosis: Likely TIA Activity: Resume your previous activity Non-emergency contact: Primary Care Provider Call non-emergency contact if: you have any medication questions, your symptoms worsen and your temperature is above 101 Follow-up/Referrals: Lexis Jasso [Primary Care Provider] - Diet: Carb Consistent or DM2 and Heart Healthy Addtl Attending Provider Instructions: Follow-up with your primary care physician within a week time and likely you will need labs CBC/CMP/magnesium/phosphorus. For your newly diagnosed diabetes with A1c of 6.5%, you opted for lifestyle modification, our nurse informatics educator will meet you prior to your discharge today. Recommend to closely follow-up with your PCP for ongoing evaluation for your diabetes management and likely you will need repeat A1c level in 3 months. Continue to take your stroke medications as prior. Pending Studies at Discharge: No Stand-Alone Forms: My [facility] [employer], Smoking Cessation, Medications to Prevent Stroke Medications and DC Order Prescriptions: Continued dutasteride 0.5 mg capsule 0.5 mg PO HS Qty: 90 3RF metoprolol tartrate 25 mg Tablet 25 mg PO BID pantoprazole 40 mg tablet,delayed release (DR/EC) 40 mg PO QAM amlodipine 2.5 mg tablet 2.5 mg PO QAM fawoi-tyzytxnv-gbf-turp-pet Ointment 1 ea TOPICAL DIRECTED PRN (Reason: Pain) ferrous sulfate [FeroSul] 325 mg (65 mg iron) tablet 325 mg PO 3XWK Rx Instructions: Take mon, wed, fri azelastine-fluticasone 137-50 mcg/spray spray,non-aerosol 2 spray INTRANASAL DIRECTED PRN (Reason: Nasal Congestion) lutein-zeaxanthin [Ocuvite Blue Light] 25-5 mg capsule 1 cap PO DAILY guaifenesin [Mucinex] 600 mg Tablet Extended Release 12hr 600 mg PO Q12H PRN (Reason: Congestion) atorvastatin 10 mg Tablet 10 mg PO HS clopidogrel 75 mg Tablet 75 mg PO QAM allopurinol 100 mg Tablet 100 mg PO 3XWK Rx Instructions: Take mon, wed, fri isosorbide mononitrate 60 mg Tablet Extended Release 24 Hr 60 mg PO QAM famotidine 20 mg Tablet 20 mg PO HS cholecalciferol (vitamin D3) [Vitamin D3] 50 mcg (2,000 unit) Tablet 50 mcg PO QAM Discharge Orders: Discharge Order (Routine); Ordered 01/17/23 Ordered By: Kathy Clark/Other Patient Handouts: A1C, 5 Steps for Eating Healthier Admission Data Admit Date/Time: 01/17/23 01:42 Attending Provider: Kathy Langston Admit Provider: Carlos Hurd Primary Care Provider: Lexis Jasso Other Providers: Carlos Hurd ; Alexis Guerra Emile ; Odilia Faustin ; Milly Castellano ; Nelly Quarles ; Ciro Onofre Kathleen ; Jose Sage ; Farida Carvajal ; Pal Samuels ; Jana Rose ; Irasema Mitchell ; Ciro Luna ; Prashant Smith
--- NOTE | 2023-01-17 13:34 | Communication Note ---
Date of Service: January 17, 2023 Code 44 attestation: He is an 82-year-old male was admitted with strokelike symptoms and has had appropriate investigation and evaluation by the neurologist. He was discharged home safely in a good medical condition by the attending. By CMS guidelines, a determination that the admission or continued stay is not medically necessary has been made by a member of the UR committee and a physician for this hospital stay, therefore a Code 44 will be completed and the Inpatient admission will be changed to outpatient. Dr Yocasta Forbes Member UR committee
[2023-01-17] MEDS ORDERED: FAMOTIDINE 20 MG TAB PO SCH (21:00)
[2023-01-17] MEDS ORDERED: ATORVASTATIN 10 MG TAB PO SCH (21:00)
--- NOTE | 2023-01-17 22:32 | Electrocardiogram Report ---
Test Reason : Blood Pressure : / mmHG Vent. Rate : 084 BPM Atrial Rate : 084 BPM P-R Int : 186 ms QRS Dur : 080 ms QT Int : 384 ms P-R-T Axes : 058 061 058 degrees QTc Int : 453 ms Poor data quality, interpretation may be adversely affected Normal sinus rhythm Normal ECG When compared with ECG of 14-DEC-2022 19:16, No significant change Confirmed by Booker Friend ([id number]) on 01/17/2023 10:32:04 PM Referred By: REFERRED SELF Confirmed By:Randall Friend
== END 2023-01-17 18:19 | disposition home or self-care (01) | DRG 69 ==
LOC: ED 23:14 → INTOOBSV 01-17 01:42 → 2E 01-17 01:42

== ENCOUNTER 2024-01-02 09:26 | Inpatient (IN) ==
[2024-01-02] MEDS: SODIUM CHLORIDE 0.9% 500 ML IV STA (11:12)
[2024-01-02 11:32] LABS: Basophils # (auto) 0.05 K/uL (0.00-0.20); Basophils % (auto) 0.8 %; Eosinophils # (auto) 0.23 K/uL (0.00-0.50); Eosinophils % (auto) 3.8 %; Hematocrit (blood only) 31.6 % (42.0-52.0); Immature Granulocytes # (auto) 0.03 K/uL (0.01-0.20); Immature Granulocytes % (auto) 0.5 %; Lymphocytes # (auto) 0.86 K/uL (1.20-3.40); Lymphocytes % (auto) 14.3 %; Mean Corpuscular Hemoglobin 31.5 pg (25.0-34.0); Mean Corpuscular Hgb Conc 31.6 g/dL (32.0-36.0); Mean Corpuscular Volume 99.7 fL (80.0-100.0); Monocytes # (auto) 0.43 K/uL (0.11-0.59); Monocytes % (auto) 7.2 %; Neutrophils # (auto) 4.41 K/uL (1.40-6.50); Neutrophils % (auto) 73.4 %; Platelet Count 241 K/uL (130-400); RDW Coefficient of Variation 14.4 % (11.5-14.5); RDW Standard Deviation 52.5 fL (36.4-46.3); Red Blood Count 3.17 M/uL (4.70-6.10); White Blood Count 6.01 K/ul (4.8-10.8)
[2024-01-02 11:40] LABS: Base Excess VBG -1.1 mEq/L; HCO3 VBG 25 mmol/L; Oxygen Saturation VBG < 60.0 %; PCO2 VBG 46 mmHg (38-50); PO2 VBG 25 mmHg; pH VBG 7.34 (7.36-7.41)
[2024-01-02 11:50] LABS: Albumin Globulin Ratio 1.1 (0.9-2); Albumin Level 3.7 gm/dl (3.4-5.0); BUN Creatinine Ratio 15.4 (10-20); Bilirubin,Total 0.6 mg/dl (0.2-1.0); Calcium 9.5 mg/dl (8.6-10.3); Creatinine Clr Calc Pharmacy 22.2 ml/min; Est GFR (African American) 27.7 ml/min; Est GFR (Non-African American) 23.9 ml/min; Globulin 3.4 gm/dl (2.5-4.0); Magnesium 2.1 mg/dl (1.7-2.4); Potassium 4.7 mmol/L (3.5-5.1); Total Protein 7.1 gm/dl (6.0-8.3)
--- NOTE | 2024-01-02 11:54 | XRay Report ---
XR chest 1V portable HISTORY: Dyspnea COMPARISON: Chest 01/17/2023. FINDINGS: No pneumothorax. There are trace bilateral pleural effusions. There is right greater than l eft interstitial/vascular thickening consistent with developing asymmetric pulmonary edema. The heart is mildly enlarged. Postoperative changes again noted within the left hemithorax. No new focal lung consolidations identified. Left basilar linear densities favor scarring. There is a moderate hiatus h ernia, unchanged. IMPRESSION: Developing mild asymmetric pulmonary edema with cardiomegaly and trace bilateral pleural effusions. T his has progressed in the interval. ACT 112: Negative or not required by law. Electronically signed by: Shailesh Pinon M.D. 01/02/2024 11:53 AM
[2024-01-02 11:56] LABS: Troponin I High Sensitivity 15.8 pg/ml (0-20)
[2024-01-02 11:56] LABS: Appearance Urine Clear (Clear); Bacteria Urine Automated Negative (Negative); Bilirubin Urine Negative (Negative); Blood Urine Negative (Negative); Cast Urine Automated 0 /lpf (0-5); Color Urine Yellow; Epithelial Cell Urine Auto 0-5 /lpf (0-5); Glucose Urine UA Negative (Negative); Ketones Urine Negative (Negative); Leukocyte Esterase Urine Negative (Negative); Nitrite Urine Negative (Negative); RBC Urine Automated 0-4 /hpf (0-4); Specific Gravity Urine 1.012 (1.000-1.030); Urobilinogen Urine Negative (Negative); WBC Urine Automated 0 /hpf (0-5)
[2024-01-02 11:58] LABS: Protein Urine 1+ (Negative)
[2024-01-02 12:07] LABS: Partial Thromboplastin Time 27 Seconds (21-31); Prothrombin Time 10.9 Seconds (9.0-12.0)
[2024-01-02 12:11] LABS: D Dimer 5700 ug/L FEU (0-500)
[2024-01-02 12:21] LABS: Adenovirus PCR Not Detected (NotDetected); Bordetella parapertussis PCR Not Detected (NotDetected); Bordetella pertussis PCR Not Detected (NotDetected); Chlamydia pneumoniae PCR Not Detected (NotDetected); Coronavirus 229E PCR Not Detected (NotDetected); Coronavirus CoV-2 (COVID19)PCR Not Detected (NotDetected); Coronavirus HKU1 PCR Not Detected (NotDetected); Coronavirus NL63 PCR Not Detected (NotDetected); Coronavirus OC43PCR Not Detected (NotDetected); Human Metapneumovirus PCR Not Detected (NotDetected); Influenza A PCR Not Detected (NotDetected); Influenza B PCR Not Detected (NotDetected); Mycoplasma pneumoniae PCR Not Detected (NotDetected); Parainfluenza Virus 1 PCR Not Detected (NotDetected); Parainfluenza Virus 2 PCR Not Detected (NotDetected); Parainfluenza Virus 3 PCR Not Detected (NotDetected); Parainfluenza Virus 4 PCR Not Detected (NotDetected); Respiratory Syncytial VirusPCR Not Detected (NotDetected); Rhinovirus/Enterovirus PCR Not Detected (NotDetected)
--- NOTE | 2024-01-02 12:29 | CT Scan Report ---
HEAD CT NONCONTRAST CT DOSE: 625.8 mGy.cm HISTORY: fall 12/15, head injury, worsening confusion TECHNIQUE: Multiaxial CT images of the head were performed without the use of intravenous contrast. A utomated exposure control was utilized for this study. A dose lowering technique was utilized adheri ng to the principles of ALARA. Comparison: Head CT 01/16/2023. Findings: The paranasal sinuses and mastoid air cells are clear. The calvarium and skull base are int act. There is no mass, hematoma, midline shift, acute infarct. White matter hypodensity is nonspecifi c but suggestive of microvascular ischemic change. The ventricles and sulci demonstrate mild age-rela rosey involutional changes. 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 Impression: No significant change compared to the prior study. No acute intracranial abnormality. ACT 112: Negative or not required by law. Electronically signed by: Shailesh Pinon M.D. 01/02/2024 12:28 PM
[2024-01-02] MEDS: LOSARTAN POTASSIUM 50 MG TAB PO STA (13:15)
[2024-01-02] MEDS: ISOSORBIDE MONO EXTENDED REL 60 MG TABCR PO STA (13:16)
--- NOTE | 2024-01-02 13:19 | History & Physical Report ---
Date of Service January 02, 2024 Assessment & Plan (1) Palpitations: (2) SOB (shortness of breath): (3) Chronic diastolic heart failure: Plan: Patient is 83-year-old male with PMH chronic diastolic heart failure, CAD s/p stent, PVD, history AAA repair history of carotid endarterectomy, HTN, HLD, history of TIA, history of lung cancer s/p surgery, CKD IV, chronic anemia, and others listed below presented to ER with c/o episode of palpitations and SOB this morning. In ER afebrile, BP 219/139, P: 72, 95% on room air. No leukocytosis. Negative BioFire respiratory panel D-dimer: 5700. BNP 1215. Negative troponin x 2 CT head: No acute intracranial abnormality CXR: No pneumothorax. There are trace bilateral pleural effusions. There is right greater than left interstitial/vascular thickening consistent with developing asymmetric pulmonary edema. No new focal lung consolidations identified. Left basilar linear densities favor scarring DDx: Arrhythmia. Less likely suspect ACS as EKG without acute ST elevation and no current CP and troponins WNL. Less likely suspect PE however additional studies pending Patient does not examine as significant volume overloaded In ER given 500 mL NSS, Lasix 20 mg IV Venous Doppler BLE pending to rule out DVT VQ scan to rule out PE Monitor response to IV Lasix given in ER Monitor I's and O's, daily weights Echo CBC, BMP, EKG in a.m. (4) Hypertensive urgency: Plan: In ER significantly hypertensive with BP 219/139 Denies headache, dizziness, chest pain, shortness of breath currently Did not have a.m. meds today In ER was given morning meds losartan 100 mg, isosorbide 60 mg. Was also given Lasix 20 mg IV, Nitropaste Hydralazine 10 mg IV now BPs improved to 183/105 Continue losartan, isosorbide, metoprolol succinate Patient previously was on amlodipine however was discontinued in the past Continue to monitor BP, may need to add or adjust BP agents (5) CKD (chronic kidney disease) stage 4, GFR 15-29 ml/min: Plan: Cr: 2.4. Was 2.6 on 08/15/2023 Follows with nephrology, Dr. Booker Willson [facility] Monitor renal functions, avoid nephrotoxic agents if possible (6) CAD (coronary atherosclerotic disease): Plan: S/p stent Continue aspirin, Plavix, atorvastatin, isosorbide, metoprolol succinate Follows with cardiology [facility] (7) TIA (transient ischemic attack): Plan: History TIA Continue aspirin, atorvastatin, Plavix (8) Hx of cancer of lung: Plan: S/p lobectomy 2011 (9) AAA (abdominal aortic aneurysm): Plan: History of AAA repair 2017 (10) GERD (gastroesophageal reflux disease): Plan: Continue famotidine (11) Hx of gout: Plan: Continue allopurinol (12) BPH (benign prostatic hyperplasia): Plan: Continue dutasteride DVT Prophylaxis Heparin SQ Full Code as per discussion with pt Follows with Dr Jasso for routine care Pt was seen and care coordinated with Dr Abraham. See addendum I spent a total of 78 minutes reviewing notes, outpatient records, labs, medication, coordinating, documenting and providing care for this patient excluding time spent in the performance of separately billed services. History of Present Illness Chief Complaint: "heart pounding" and SOB Primary Care Provider: Lexis Jasso Patient is 83-year-old male with PMH chronic diastolic heart failure, CAD s/p stent, PVD, history AAA repair history of carotid endarterectomy, HTN, HLD, history of TIA, history of lung cancer s/p surgery, CKD IV, chronic anemia, and others listed below presented to ER with c/o episode of palpitations and SOB this morning. History obtained from patient as well as inpatient and outpatient chart review. Patient states this morning he was standing trying to urinate when he had sudden onset of "heart pounding" with associated shortness of breath, nausea, diaphoresis. Denies any chest pain, dizziness, headache, syncope, or vomiting. Patient states he made it back to his bed and sat down and called EMS. It is reported EMS noted that patient looked pale and they reported 89% on room air pulse ox and patient was wheezing. Reported gave patient DuoNeb and oxygen. Upon arrival to ER patient is noted to be hypertensive, is not hypoxic. Denies any shortness of breath, palpitations, chest pain, nausea currently. Patient states several weeks ago he had a fall and was seen at [facility] and reports was told had negative CT head at that time. Patient states he also injured his right knee which is getting better. He states he has been having home physical therapy. Has been using walker to ambulate. Patient denies any recurrent falls since. He states has been having progressive memory problems. Patient states earlier this week physical therapist did not complete his physical therapy secondary to his BP being high and reported SBP of 200. Patient reports chronic shortness of breath with exertion since his lung cancer and lobectomy. Denies shortness of breath at rest. Reports chronic clear rhinorrhea. History BPH with chronic hesitancy reported. Denies fever/chills, V/D/C, CORREA, dizziness, syncope, vision changes, neck pain, orthopnea, cough, sore throat, choking, otalgia, rhinorrhea, abdominal pain, paresthesias, extremity weakness, extremity edema, rashes, dysuria, hematuria. Allergies Allergy/AdvReac Type Severity Reaction Status Date / Time Penicillins Allergy Intermediate Rash Verified 07/02/23 12:43 Home Medications Medication Instructions Recorded Confirmed Type allopurinol 100 mg tablet 100 mg PO UD 08/24/21 01/02/24 History atorvastatin 10 mg tablet 10 mg PO HS 08/24/21 01/02/24 History cholecalciferol (vitamin D3) 50 50 mcg PO QAM 08/24/21 01/02/24 History mcg (2,000 unit) tablet (Vitamin D3) clopidogrel 75 mg tablet 75 mg PO HS 08/24/21 01/02/24 History isosorbide mononitrate 60 mg 60 mg PO QAM 08/24/21 01/02/24 History tablet,extended release 24 hr azelastine 137 mcg-fluticasone 50 2 spray intranasal DIRECTED PRN 12/14/22 01/02/24 History mcg/spray nasal spray Nasal Congestion yhebw-xrdoklbw-tos-turp-pet 1 ea topical DIRECTED PRN Pain 12/14/22 01/02/24 History topical ointment guaifenesin 600 mg tablet, 600 mg PO Q12H PRN Congestion 12/14/22 01/02/24 History extended release 12 hr (Mucinex) lutein 25 mg-zeaxanthin 5 mg 1 cap PO DAILY 12/14/22 01/02/24 History capsule (Ocuvite Blue Light) dutasteride 0.5 mg capsule 0.5 mg PO HS #90 caps 09/17/23 01/02/24 Rx aspirin 81 mg tablet,delayed 81 mg PO 3XWK 01/02/24 01/02/24 History release famotidine 20 mg tablet 20 mg PO BID 01/02/24 01/02/24 History losartan 100 mg tablet 100 mg PO DAILY 01/02/24 01/02/24 History metoprolol succinate 100 mg 100 mg PO HS 01/02/24 01/02/24 History tablet,extended release 24 hr montelukast 10 mg tablet 10 mg PO HS 01/02/24 01/02/24 History sodium bicarbonate 650 mg tablet 650 mg PO TID 01/02/24 01/02/24 History Past Med/Surg History Medical History (Updated 01/02/24 @ 22:10 by Aleta Hammer PA-C) BPH (benign prostatic hyperplasia) Acute kidney injury superimposed on chronic kidney disease COVID-19 History of GI bleed 07/25/22, pt recently admitted to [facility] for gi bleed. pt "unsure of all the details, but know that I was anemic and had a couple pints of blood." Poor historian Hearing deficit bilat CORREA's Stomach ulcer pt "thinks it's gone now" Arthritis Chronic kidney disease ? STAGE GERD (gastroesophageal reflux disease) Hx of cancer of lung Hx of gout Anemia recently admitted to [facility] for this TIA (transient ischemic attack) X 2 "a few years ago was last one" CAD (coronary atherosclerotic disease) "S/P LAD stent" HTN (hypertension) Surgical History History of colonoscopy History of tooth extraction History of tonsillectomy and adenoidectomy H/O heart artery stent X 4 (? DATE-"maybe 5 years ago" "LAST 2 STENTS PLACED AT [facility], OTHER 2 AT [facility]") S/P lobectomy of lung History of left-sided carotid endarterectomy H/O aortic aneurysm repair 2013 AT [facility] Family History Other No family history of adverse response to anesthesia No significant family history Social History Smoking Status: Former smoker Second Hand Exposure: No; Do You Dip or Chew Tobacco: No; Hx Alcohol Use: No Hx Substance Use: No Preferred Language: Kyrgyz Communication Ability: Effective Communications Technician Required: No Beliefs That Will Affect Care: None Current Living Situation: Alone Current Living Situation Comment: HAS A [employer] ASSISTS 3X PER WEEK How many Children do You have: 1 Other Information That Helps Us Care for You: No Feels Safe at Home: Yes Safety Concerns: Feels Safe At This Time Assistive Devices: Cane, Glasses and Walker Review of Systems Review of Systems: All systems reviewed & are unremarkable except as noted in HPI & below Physical Exam Physical Exam: General: no acute distress, WDWN Head: normocephalic, atraumatic Eyes: PERRL, EOM's intact, conjunctiva non-injected, anicteric ENT: normal inspection external ears, nose, mucous membranes moist Neck: supple, trachea midline Lungs: clear, no respiratory distress. on RA with O2 sat 95%, slightly diminished breath sounds CV: RRR, + murmur, trace pretibial edema Abd: normal BS, soft, non-tender Ext: no cyanosis, no calf tenderness Neuro: Alert, oriented to person, place, month and year, initially didn't know the day of week, no focal deficits noted, normal affect Skin: warm, dry Results & Data Results & Data Vital Signs (Past 12 Hours) Vital Signs Temp Pulse Pulse Resp BP BP Pulse Ox 01/02/24 13:00 69 21 223/130 H 95 01/02/24 11:30 68 24 217/125 H 98 01/02/24 10:57 68 22 97 01/02/24 10:40 67 01/02/24 09:48 01/02/24 09:30 95 01/02/24 09:27 36.5 C 72 12 219/139 H 93 O2 Del Method 01/02/24 13:00 Room Air 01/02/24 11:30 Room Air 01/02/24 10:57 Room Air 01/02/24 10:40 01/02/24 09:48 Room Air 01/02/24 09:30 Room Air 01/02/24 09:27 Room Air Laboratory Results Short CBC 01/02/24 Range/Units 11:10 WBC 6.01 (4.8-10.8) K/ul Hgb 10.0 L (14.0-18.0) g/dl Hct 31.6 L (42.0-52.0) % Plt Count 241 (130-400) K/uL BMP 01/02/24 11:10 Sodium 140 Potassium 4.7 Chloride 109 H Carbon Dioxide 24 BUN 37 H Creatinine 2.40 H Glucose 99 Calcium 9.5 Liver Function 01/02/24 Range/Units 11:10 Total Bilirubin 0.6 (0.2-1.0) mg/dl AST 24 (13-39) U/L ALT 23 (7-52) U/L Alkaline Phosphatase 72 (34-104) U/L Albumin 3.7 (3.4-5.0) gm/dl Urine 01/02/24 Range/Units 10:35 Urine Color Yellow Urine Appearance Clear (Clear) Urine pH 8.0 H (4.5-7.5) Ur Specific [place] 1.012 (1.000-1.030) Urine Protein 1+ H (Negative) Urine Glucose (UA) Negative (Negative) Diagnostic Findings Head CT 01/02/24 10:[address] DOSE: 625.8 mGy.cm HISTORY: fall 12/15, head injury, worsening confusion TECHNIQUE: Multiaxial CT images of the head were performed without the use of intravenous contrast. Automated exposure control was utilized for this study. A dose lowering technique was utilized adhering to the principles of ALARA. Comparison: Head CT 01/16/2023. Findings: The paranasal sinuses and mastoid air cells are clear. The calvarium and skull base are intact. There is no mass, hematoma, midline shift, acute infarct. White matter hypodensity is nonspecific but suggestive of microvascular ischemic change. The ventricles and sulci demonstrate mild age-related involutio nal changes. 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 Impression: No significant change compared to the prior study. No acute intracranial abnormality. ACT 112: Negative or not required by law. Electronically signed by: Shailesh Pinon M.D. 01/02/2024 12:28 PM Chest X-Ray 01/02/24 10:48 XR chest 1V portable HISTORY: Dyspnea COMPARISON: Chest 01/17/2023. FINDINGS: No pneumothorax. There are trace bilateral pleural effusions. There is right greater than left interstitial/vascular thickening consistent with developing asymmetric pulmonary edema. The heart is mildly enlarged. Postoperative changes again noted within the left hemithorax. No new focal lung consolidations identified. Left basilar linear densities favor scarring. There is a moderate hiatus hernia, unchanged. IMPRESSION: Developing mild asymmetric pulmonary edema with cardiomegaly and trace bilateral pleural effusions. This has progressed in the interval. ACT 112: Negative or not required by law. Electronically signed by: Shailesh Pinon M.D. 01/02/2024 11:53 AM Supervising Physician Co-Signing Physician Notes Pt seen and examined by myself, Puja Abraham MD on the day of service. Care was coordinated with Aleta Hammer PA-C. Pt is an 83-year-old male with PMHx significant for HTN, chronic diastolic heart failure, CAD s/p stent, PVD, history AAA repair, history of carotid endarterectomy, HLD, history of TIA, history of lung cancer s/p surgery, CKD IV, chronic anemia presenting with concerning chest discomfort and found to have hypertensive urgency and possible HFpEf exacerbation. Per pt, he woke up to urinate at about 4:30AM and noticed a "pounding" in his chest, felt like his heart "was trembling". States it was hard to catch his breath but he went back to bed. States it got better when he was laying down but returned and worsened when he was up and moving around. Presented to the ED for further evaluation. Per ED report pt was found to be hypoxic at home and given breathing treatments and oxygen and his symptoms of respiratory distress were resolved on admission. Per patient he loves his salt and cannot live without it. Notes he had [place] onion soup in a bowl from [employer] the day before presentation. hgb 10, d-dimer 5700, VBG pH 7.34 pCO2 46, Cr 2.40, baseline in chart appr 1.8, BNP 1215, UA with noted protein, Biofire negative Chest XR- mild asymmetric pulm edema, trace bilateral pleural effusions (progressing), cardiomegaly, moderate hiatal hernia Echo 2022- EF 65-70%, mild LVH, Grade I diastolic dysfunction, mild aortic stenosis BP 223/130 HR 72, O2 sat >90% on RA Resting comfortably in bed on exam, RRR, no crackles appreciated at lung bases but breath sounds decreased, no appreciable lower extremity edema Pleural Effusions/Pulm Edema/HFpEF- chest xray with mild pulm edema and pleural effusions, CT chest w/o contrast to further define. BNP 1215, possibly significant elevation due to kidney disease. Repeat echo pending. Received IV lasix 20mg in the ED, continue cautious diuresis prn in setting of CKD. Pt currently on RA, no increased oxygen requirement, reassuring. Consider liu placement for accurate ins and out measurements, daily weights recommended. Consider nephrology consult for need for diuresis in setting of CKD. Hypertensive urgency- possibly the cause of his chest symptoms, denies headache. Received home losartan 100mg in the ED, nitrobid paste on anterior chest wall, IV hydralazine 10mg. Consider addition of IV labetalol if further control needed. Consider Nephrology consult if persistent/difficulty controlling. Elevated D-dimer- in ED, d-dimer elevated at 5700. Will defer on CTA PE protocol with contrast in setting of CKD. Doppler US bilateral lower extremities ordered in the ED reassuring for no DVT. Low suspicion for PE given pt's quick resolution of SOB, however V/Q scan ordered and pending. CKD- Cr 2.40, appears chronic, follows with Nephrology outpt. Consider Nephrology consult for further increase. Otherwise as above.
[2024-01-02] MEDS: NITROGLYCERIN 2% OINTMENT 30GM TUBE EXT STA (14:26)
[2024-01-02] MEDS: hydrALAZINE HCL 20 MG/ML VIAL IV STA (14:28)
[2024-01-02] MEDS: FUROSEMIDE INJ 20 MG/2 ML VIAL IV STA (14:29)
--- NOTE | 2024-01-02 14:36 | Emergency Department Note ---
Impression & Plan HTN (hypertension), Dyspnea ED Provider Note CHIEF COMPLAINT: Shortness of breath this morning HISTORY OF PRESENT ILLNESS: This 83-year-old male patient presents to the emergency department via private vehicle for evaluation of shortness of breath. This came on suddenly this morning upon awakening. Patient states he normally feels somewhat short of breath in the mornings, but today was much worse. He states he got out of bed to go to the bathroom and felt that he may not have even made at the 10 feet to the toilet due to how severe the shortness of breath was. He pressed his med alert button and EMS was summoned. Upon EMS arrival, per their report, the patient was wheezing on examination. O2 saturation was 89% on room air. They provided a DuoNeb treatment and started the patient on oxygen which did seem to help. Per EMS report, his color improved and his wheezing resolved. Upon arrival to the emergency department, the patient states that his symptoms had resolved. He is feeling much better. He does report a history of head injury about 3 weeks ago. He was seen in [place] and had a negative CT scan completed at that time. The patient states that he has been following up with his primary care provider, but his son notes that his mental status has been declining somewhat since then. Patient denies any chest pain. Denies any leg pain or swelling, wheezing, congestion, runny nose, sore throat, nausea, vomiting, headache, dizziness, passing out, or other concerning symptoms. REVIEW OF SYSTEMS: A 10 system review of systems was performed with positives and pertinent negatives listed in the history of present illness. All other systems were reviewed and are negative. ALLERGIES: Penicillin PHYSICAL EXAM: VITALS: Vitals are noted on the nurse's note and reviewed by myself. Vital signs stable. GENERAL: This is an 83-year-old, in no acute distress, nondiaphoretic, well- developed well-nourished. SKIN: The skin was without rashes, erythema, edema, or bruising. There is no tenting of the skin. Capillary refill less than 2 seconds. HEAD: Normocephalic atraumatic. EARS: External auditory canals clear, tympanic membranes pearly grewal without erythema or effusion bilaterally. No hemotympanum. Negative prescott sign EYES: Pupils equal round and reactive to light and accommodation. Conjunctivae without injection, sclerae without icterus. Extraocular movements intact. NOSE: Patent, turbinates without inflammation or discharge. No sinus tenderness. MOUTH: Mucous membranes moist. Tonsils are not enlarged. Pharynx without erythema or exudate. Uvula midline. Airway patent. Tongue does not deviate. NECK: Supple without nuchal rigidity. No lymphadenopathy. Cervical spine is nontender. No JVD. HEART: Regular rate and rhythm without murmurs gallops or rubs. LUNGS: Clear to auscultation bilaterally without wheezes, rales or rhonchi. No retractions or accessory muscle use. ABDOMEN: Positive bowel sounds x 4. Soft, nontender, without masses or organomegaly. Carvajal sign negative. No guarding or rebound tenderness. MUSCULOSKELETAL: No muscle atrophy, erythema, or edema noted. Full range of motion without joint tenderness in all extremities. No tenderness to palpation. Normal gait. Strength 5/5 throughout. NEURO: Patient was alert and oriented to person place and time. Normal sensation to light and sharp touch. Deep tendon reflexes 2+ throughout. No focal neurological deficits. An order was placed for continuous punchboard stuffer. The monitor showed a normal sinus rhythm at a ventricular rate of 69 bpm, per my interpretation. EKG was reviewed by myself and found to be Normal Sinus Rhythm at a rate of 70 beats per minute and per my interpretation reveals no ST elevation or depression. No T wave inversion. When compared to previous EKG of 01/16/2023 is not significantly changed Imaging as interpreted by myself and the radiologist revealed no acute findings on head CT, chest x-ray was concerning for developing mild asymmetric pulmonary edema with cardiomegaly and trace bilateral pleural effusions which has progressed from prior study, with radiologist interpretation as above. I agree with the radiologist's findings as based upon my independent interpretation. EMERGENCY DEPARTMENT COURSE: The patient was seen and evaluated as above. There is concern for a hypoxic episode this morning. The patient appears well on examination at this time. He is hypertensive with a blood pressure of 223/130. He did not take his morning medications. These were ordered while in the emergency department, however unfortunately, there did appear to be a delay in obtaining them. Chest x-ray was concerning for asymmetric pulmonary edema with cardiomegaly and trace bilateral pleural effusions. IV access was obtained, labs were drawn. CT of the head was completed and was negative for acute abnormality. This was performed due to history of a fall about 3 weeks ago and son's report of confusion. IV access was obtained, labs were drawn. No leukocytosis, concerning anemia, thrombocytopenia. Renal, hepatic function, and electrolytes without significant abnormality. INR was 1.0. D-dimer was 5700. Creatinine elevated 2.4. Hepatic function and electrolytes otherwise without acute abnormality. BNP elevated at 1215. Troponin 15.8. Urinalysis negative for blood or evidence of infection. D-dimer is elevated. Given the CELESTE with a creatinine of 2.4, we did elect to perform DVT studies of the bilateral lower extremities. Medicine team can consider additional testing for PE. I discussed the case with my attending physician. Patient was medicated with his morning losartan and Imdur. He was given Nitropaste, Lasix, and hydralazine due to the persistent hypertension. The patient did not experience any further episodes of hypoxia. I do feel that the patient would benefit from inpatient care given the persistent hypertension, episode of shortness of breath, and suspicion for CHF episode. I discussed the case with Aleta Hammer PA-C who did agree to see and evaluate the patient for admission. Please see the [facility] dictation regarding ongoing management care of this patient Case was discussed with the attending physician. This visit is during a period of high volume and high acuity in the emergency department. I attest that I have personally reviewed the patient medication list. I attest that I have reviewed the patient's blood pressure and it was found to be hypertensive - hospitalist to manage. GCS 15 In the evaluation and treatment of this patient the following differential diagnoses were entertained: Reactive airway disease, pneumonia, pneumothorax, COPD, CHF, infections, cardiac ischemia, pulmonary embolism, musculoskeletal, gastrointestinal, as well as other pathologies. The chart was completed utilizing [employer] Speech voice recognition software. Grammatical errors, random word insertions, pronoun errors, and incomplete sentences are an occasional consequence of this system due to software limitations, ambient noise, and hardware issues. Any formal questions or concerns about the content, text, or information contained within the body of this dictation should be directly addressed to the provider for clarification. Past Med/Surg History Medical History Acute kidney injury superimposed on chronic kidney disease COVID-19 History of GI bleed 07/25/22, pt recently admitted to [facility] for gi bleed. pt "unsure of all the details, but know that I was anemic and had a couple pints of blood." Poor historian Hearing deficit bilat CORREA's Stomach ulcer pt "thinks it's gone now" Arthritis Chronic kidney disease ? STAGE GERD (gastroesophageal reflux disease) Hx of cancer of lung Hx of gout Anemia recently admitted to [facility] for this TIA (transient ischemic attack) X 2 "a few years ago was last one" CAD (coronary atherosclerotic disease) "S/P LAD stent" BPH (benign prostatic hyperplasia) HTN (hypertension) Surgical History History of colonoscopy History of tooth extraction History of tonsillectomy and adenoidectomy H/O heart artery stent X 4 (? 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: No Beliefs That Will Affect Care: None Current Living Situation: Alone Current Living Situation Comment: 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 How many Children do You have: 1 Feels Safe at Home: Yes Assistive Devices: Other Allergies Allergies Allergy/AdvReac Type Severity Reaction Status Date / Time Penicillins Allergy Intermediate Rash Verified 07/02/23 12:43 Home Meds Home Medications Medication Instructions Recorded Confirmed allopurinol 100 mg tablet 100 mg PO UD 08/24/21 01/02/24 atorvastatin 10 mg tablet 10 mg PO HS 08/24/21 01/02/24 cholecalciferol (vitamin D3) 50 50 mcg PO QAM 08/24/21 01/02/24 mcg (2,000 unit) tablet (Vitamin D3) clopidogrel 75 mg tablet 75 mg PO HS 08/24/21 01/02/24 isosorbide mononitrate 60 mg 60 mg PO QAM 08/24/21 01/02/24 tablet,extended release 24 hr azelastine 137 mcg-fluticasone 50 2 spray intranasal DIRECTED PRN 12/14/22 01/02/24 mcg/spray nasal spray Nasal Congestion [id number]-strzzycr-[id number]-turp-pet 1 ea topical DIRECTED PRN Pain 12/14/22 01/02/24 topical ointment guaifenesin 600 mg tablet, 600 mg PO Q12H PRN Congestion 12/14/22 01/02/24 extended release 12 hr (Mucinex) lutein 25 mg-zeaxanthin 5 mg 1 cap PO DAILY 12/14/22 01/02/24 capsule (Ocuvite Blue Light) aspirin 81 mg tablet,delayed 81 mg PO 3XWK 01/02/24 01/02/24 release famotidine 20 mg tablet 20 mg PO BID 01/02/24 01/02/24 losartan 100 mg tablet 100 mg PO DAILY 01/02/24 01/02/24 metoprolol succinate 100 mg 100 mg PO HS 01/02/24 01/02/24 tablet,extended release 24 hr montelukast 10 mg tablet 10 mg PO HS 01/02/24 01/02/24 sodium bicarbonate 650 mg tablet 650 mg PO TID 01/02/24 01/02/24 Previous Rx's Medication Instructions Recorded dutasteride 0.5 mg capsule 0.5 mg PO HS #90 caps 09/17/23 Results & Data (ED) Vital Signs Vital Signs - 24 hr 01/02/24 09:27 01/02/24 09:30 01/02/24 09:48 Temperature 36.5 C Temperature Source Oral Pulse Rate 72 Pulse Rate [Apical] Respiratory Rate 12 Respiratory Effort / Characteristics Non-Labored Spontaneous Non-Labored Spontaneous Respiratory Depth Normal Normal Respiratory Pattern Regular Blood Pressure 219/139 H Blood Pressure [Left Arm] Blood Pressure Mean 165 Blood Pressure Mean [Left Arm] Pulse Oximetry 93 95 Oxygen Delivery Method Room Air Room Air Room Air Sepsis Recent Fever Within 48 Hours No Sepsis New/Unexplained Change in Mental Status No Sepsis Action Taken by Nursing No Action Required 01/02/24 10:40 01/02/24 10:57 01/02/24 11:30 Temperature Temperature Source Pulse Rate 67 68 Pulse Rate [Apical] 68 Respiratory Rate 22 24 Respiratory Effort / Characteristics Respiratory Depth Respiratory Pattern Blood Pressure Blood Pressure [Left Arm] 217/125 H Blood Pressure Mean Blood Pressure Mean [Left Arm] 155 Pulse Oximetry 97 98 Oxygen Delivery Method Room Air Room Air Sepsis Recent Fever Within 48 Hours Sepsis New/Unexplained Change in Mental Status Sepsis Action Taken by Nursing 01/02/24 13:00 Temperature Temperature Source Pulse Rate Pulse Rate [Apical] 69 Respiratory Rate 21 Respiratory Effort / Characteristics Non-Labored Spontaneous Respiratory Depth Normal Respiratory Pattern Blood Pressure Blood Pressure [Left Arm] 223/130 H Blood Pressure Mean Blood Pressure Mean [Left Arm] 161 Pulse Oximetry 95 Oxygen Delivery Method Room Air Sepsis Recent Fever Within 48 Hours Sepsis New/Unexplained Change in Mental Status Sepsis Action Taken by Nursing Laboratory Data 01/02/24 11:10 01/02/24 11:10 Lab Results 01/02/24 01/02/24 01/02/24 Range/Units 10:35 11:08 11:10 WBC 6.01 (4.8-10.8) K/ul RBC 3.17 L (4.70-6.10) M/uL Hgb 10.0 L (14.0-18.0) g/dl Hct 31.6 L (42.0-52.0) % MCV 99.7 (80.0-100.0) fL MCH 31.5 (25.0-34.0) pg MCHC 31.6 L (32.0-36.0) g/dL RDW Std Deviation 52.5 H (36.4-46.3) fL RDW Coeff of Serene 14.4 (11.5-14.5) % Plt Count 241 (130-400) K/uL MPV 10.0 (9.4-12.4) fL Immature Gran % (Auto) 0.5 % Neut % (Auto) 73.4 % Lymph % (Auto) 14.3 % [place] % (Auto) 7.2 % Eos % (Auto) 3.8 % Baso % (Auto) 0.8 % Neut # (Auto) 4.41 (1.40-6.50) K/uL Lymph # (Auto) 0.86 L (1.20-3.40) K/uL [place] # (Auto) 0.43 (0.11-0.59) K/uL Eos # (Auto) 0.23 (0.00-0.50) K/uL Baso # (Auto) 0.05 (0.00-0.20) K/uL Immature Gran # (Auto) 0.03 (0.01-0.20) K/uL PT 10.9 (9.0-12.0) Seconds INR 1.0 (0.9-1.1) APTT 27 (21-31) Seconds PTT Ratio 1.0 D-Dimer 5700 H* (0-500) ug/L FEU VBG pH (7.36-7.41) VBG pCO2 (38-50) mmHg VBG pO2 mmHg VBG HCO3 mmol/L VBG O2 Saturation % VBG Base Excess mEq/L Sodium 140 (136-145) mmol/L Potassium 4.7 (3.5-5.1) mmol/L Chloride 109 H (98-107) mmol/L Carbon Dioxide 24 (21-32) mmol/L Anion Gap 7 (3-11) BUN 37 H (6-23) mg/dl Creatinine 2.40 H (0.6-1.4) mg/dl Est Cr Clr Drug Dosing 22.2 ml/min Est GFR ( Amer) 27.7 ml/min Est GFR (Non-Af Amer) 23.9 ml/min BUN/Creatinine Ratio 15.4 (10-20) Glucose 99 (70-99(Fasting)) mg/dl Calcium 9.5 (8.6-10.3) mg/dl Magnesium 2.1 (1.7-2.4) mg/dl Total Bilirubin 0.6 (0.2-1.0) mg/dl AST 24 (13-39) U/L ALT 23 (7-52) U/L Alkaline Phosphatase 72 (34-104) U/L Troponin I High Sens 15.8 (0-20) pg/ml B-Natriuretic Peptide 1215 H (0-100) pg/ml Total Protein 7.1 (6.0-8.3) gm/dl Albumin 3.7 (3.4-5.0) gm/dl Globulin 3.4 (2.5-4.0) gm/dl Albumin/Globulin Ratio 1.1 (0.9-2) Urine Color Yellow Urine Appearance Clear (Clear) Urine pH 8.0 H (4.5-7.5) Ur Specific [place] 1.012 (1.000-1.030) Urine Protein 1+ H (Negative) Urine Glucose (UA) Negative (Negative) Urine Ketones Negative (Negative) Urine Blood Negative (Negative) Urine Nitrite Negative (Negative) Urine Bilirubin Negative (Negative) Urine Urobilinogen Negative (Negative) Ur Leukocyte Esterase Negative (Negative) Urine WBC (Auto) 0 (0-5) /hpf Urine RBC (Auto) 0-4 (0-4) /hpf U Hyaline Cast (Auto) 0 (0-5) /lpf U Epithel Cells (Auto) 0-5 (0-5) /lpf Urine Bacteria (Auto) Negative (Negative) Adenovirus (PCR) Not Detected (NotDetected) B. pertussis DNA (PCR) Not Detected (NotDetected) B.parapertussis DNA PCR Not Detected (NotDetected) C. pneumoniae DNA (PCR) Not Detected (NotDetected) Coronavirus OC43 (PCR) Not Detected (NotDetected) Coronavirus HKU1 (PCR) Not Detected (NotDetected) Coronavirus 229E (PCR) Not Detected (NotDetected) SARS-CoV-2 (PCR) Not Detected (NotDetected) Coronavirus NL63 (PCR) Not Detected (NotDetected) Human Metapneumovir PCR Not Detected (NotDetected) Influenza Type A (PCR) Not Detected (NotDetected) Influenza Type B (PCR) Not Detected (NotDetected) M. pneumoniae (PCR) Not Detected (NotDetected) Parainfluenza 1 (PCR) Not Detected (NotDetected) Parainfluenza 2 (PCR) Not Detected (NotDetected) Parainfluenza 3 (PCR) Not Detected (NotDetected) Parainfluenza 4 (PCR) Not Detected (NotDetected) RSV (PCR) Not Detected (NotDetected) Entero/Rhino (PCR) Not Detected (NotDetected) 01/02/24 01/02/24 Range/Units 11:26 14:39 WBC (4.8-10.8) K/ul RBC (4.70-6.10) M/uL Hgb (14.0-18.0) g/dl Hct (42.0-52.0) % MCV (80.0-100.0) fL MCH (25.0-34.0) pg MCHC (32.0-36.0) g/dL RDW Std Deviation (36.4-46.3) fL RDW Coeff of Serene (11.5-14.5) % Plt Count (130-400) K/uL MPV (9.4-12.4) fL Immature Gran % (Auto) % Neut % (Auto) % Lymph % (Auto) % [place] % (Auto) % Eos % (Auto) % Baso % (Auto) % Neut # (Auto) (1.40-6.50) K/uL Lymph # (Auto) (1.20-3.40) K/uL [place] # (Auto) (0.11-0.59) K/uL Eos # (Auto) (0.00-0.50) K/uL Baso # (Auto) (0.00-0.20) K/uL Immature Gran # (Auto) (0.01-0.20) K/uL PT (9.0-12.0) Seconds INR (0.9-1.1) APTT (21-31) Seconds PTT Ratio D-Dimer (0-500) ug/L FEU VBG pH 7.34 L (7.36-7.41) VBG pCO2 46 (38-50) mmHg VBG pO2 25 mmHg VBG HCO3 25 mmol/L VBG O2 Saturation < 60.0 % VBG Base Excess -1.1 mEq/L Sodium (136-145) mmol/L Potassium (3.5-5.1) mmol/L Chloride (98-107) mmol/L Carbon Dioxide (21-32) mmol/L Anion Gap (3-11) BUN (6-23) mg/dl Creatinine (0.6-1.4) mg/dl Est Cr Clr Drug Dosing ml/min Est GFR ( Amer) ml/min Est GFR (Non-Af Amer) ml/min BUN/Creatinine Ratio (10-20) Glucose (70-99(Fasting)) mg/dl Calcium (8.6-10.3) mg/dl Magnesium (1.7-2.4) mg/dl Total Bilirubin (0.2-1.0) mg/dl AST (13-39) U/L ALT (7-52) U/L Alkaline Phosphatase (34-104) U/L Troponin I High Sens 18.0 (0-20) pg/ml B-Natriuretic Peptide (0-100) pg/ml Total Protein (6.0-8.3) gm/dl Albumin (3.4-5.0) gm/dl Globulin (2.5-4.0) gm/dl Albumin/Globulin Ratio (0.9-2) Urine Color Urine Appearance (Clear) Urine pH (4.5-7.5) Ur Specific [place] (1.000-1.030) Urine Protein (Negative) Urine Glucose (UA) (Negative) Urine Ketones (Negative) Urine Blood (Negative) Urine Nitrite (Negative) Urine Bilirubin (Negative) Urine Urobilinogen (Negative) Ur Leukocyte Esterase (Negative) Urine WBC (Auto) (0-5) /hpf Urine RBC (Auto) (0-4) /hpf U Hyaline Cast (Auto) (0-5) /lpf U Epithel Cells (Auto) (0-5) /lpf Urine Bacteria (Auto) (Negative) Adenovirus (PCR) (NotDetected) B. pertussis DNA (PCR) (NotDetected) B.parapertussis DNA PCR (NotDetected) C. pneumoniae DNA (PCR) (NotDetected) Coronavirus OC43 (PCR) (NotDetected) Coronavirus HKU1 (PCR) (NotDetected) Coronavirus 229E (PCR) (NotDetected) SARS-CoV-2 (PCR) (NotDetected) Coronavirus NL63 (PCR) (NotDetected) Human Metapneumovir PCR (NotDetected) Influenza Type A (PCR) (NotDetected) Influenza Type B (PCR) (NotDetected) M. pneumoniae (PCR) (NotDetected) Parainfluenza 1 (PCR) (NotDetected) Parainfluenza 2 (PCR) (NotDetected) Parainfluenza 3 (PCR) (NotDetected) Parainfluenza 4 (PCR) (NotDetected) RSV (PCR) (NotDetected) Entero/Rhino (PCR) (NotDetected) Administered Medications Discontinued Medications Furosemide (Furosemide Inj 20 Mg/2 Ml Vial) 20 mg IV NOW STA Stop: 01/02/24 13:53 Last Admin: 01/02/24 14:29 Dose: 20 mg Documented By: PORFIRIO Hydralazine HCl (Hydralazine Hcl 20 Mg/Ml Vial) 10 mg IV NOW STA Stop: 01/02/24 14:01 Last Admin: 01/02/24 14:28 Dose: 10 mg Documented By: PORFIRIO Sodium Chloride (Nss) 500 mls @ 999 mls/hr IV .Q31M STA Stop: 01/02/24 11:17 Last Infusion: 01/02/24 11:43 Dose: Infused Documented By: Admin: 01/02/24 11:12 Dose: 999 mls/hr Documented By: RED Isosorbide Mononitrate (Isosorbide [place] Extended Rel 60 Mg Tabcr) 60 mg PO NOW STA Stop: 01/02/24 12:08 Last Admin: 01/02/24 13:16 Dose: 60 mg Documented By: PORFIRIO Losartan Potassium (Losartan Potassium 50 Mg Tab) 100 mg PO NOW STA Stop: 01/02/24 12:08 Last Admin: 01/02/24 13:15 Dose: 100 mg Documented By: PORFIRIO Nitroglycerin (Nitroglycerin 2% Ointment 30gm Tube) 0.5 inch EXT NOW STA Stop: 01/02/24 13:51 Last Admin: 01/02/24 14:26 Dose: 0.5 inch Documented By: PORFIRIO Imaging Data Radiologist's Impression: Head CT 01/02/24 10:[address] DOSE: 625.8 mGy.cm HISTORY: fall 12/15, head injury, worsening confusion TECHNIQUE: Multiaxial CT images of the head were performed without the use of intravenous contrast. Automated exposure control was utilized for this study. A dose lowering technique was utilized adhering to the principles of ALARA. Comparison: Head CT 01/16/2023. Findings: The paranasal sinuses and mastoid air cells are clear. The calvarium and skull base are intact. There is no mass, hematoma, midline shift, acute infarct. White matter hypodensity is nonspecific but suggestive of microvascular ischemic change. The ventricles and sulci demonstrate mild age-related involutional changes. 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 Impression: No significant change compared to the prior study. No acute intracranial abnormality. ACT 112: Negative or not required by law. Electronically signed by: Shailesh Pinon M.D. 01/02/2024 12:28 PM Chest X-Ray 01/02/24 10:48 XR chest 1V portable HISTORY: Dyspnea COMPARISON: Chest 01/17/2023. FINDINGS: No pneumothorax. There are trace bilateral pleural effusions. There is right greater than left interstitial/vascular thickening consistent with developing asymmetric pulmonary edema. The heart is mildly enlarged. Postoperative changes again noted within the left hemithorax. No new focal lung consolidations identified. Left basilar linear densities favor scarring. There is a moderate hiatus hernia, unchanged. IMPRESSION: Developing mild asymmetric pulmonary edema with cardiomegaly and trace bilateral pleural effusions. This has progressed in the interval. ACT 112: Negative or not required by law. Electronically signed by: Shailesh Pinon M.D. 01/02/2024 11:53 AM Discharge Plan Visit Data Chief Complaint: Shortness of Breath/Dyspnea Stated Complaint: SOB ED Provider: Ciro Moore ED Midlevel Provider: Reina Rivas Discharge Problem: HTN (hypertension), Dyspnea Forms Stand Alone Forms: [facility] [employer] Prescriptions Prescriptions: No Action dutasteride 0.5 mg capsule 0.5 mg PO HS Qty: 90 3RF toqse-qdlgexnr-zsr-turp-pet Ointment 1 ea TOPICAL DIRECTED PRN (Reason: Pain) azelastine-fluticasone 137-50 mcg/spray spray,non-aerosol 2 spray INTRANASAL DIRECTED PRN (Reason: Nasal Congestion) lutein-zeaxanthin [Ocuvite Blue Light] 25-5 mg capsule 1 cap PO DAILY guaifenesin [Mucinex] 600 mg Tablet Extended Release 12hr 600 mg PO Q12H PRN (Reason: Congestion) atorvastatin 10 mg Tablet 10 mg PO HS clopidogrel 75 mg Tablet 75 mg PO HS allopurinol 100 mg Tablet 100 mg PO UD Rx Instructions: Take mon, fri isosorbide mononitrate 60 mg Tablet Extended Release 24 Hr 60 mg PO QAM cholecalciferol (vitamin D3) [Vitamin D3] 50 mcg (2,000 unit) Tablet 50 mcg PO QAM metoprolol succinate 100 mg tablet extended release 24 hr 100 mg PO HS montelukast 10 mg tablet 10 mg PO HS aspirin 81 mg tablet,delayed release (DR/EC) 81 mg PO 3XWK Rx Instructions: Friday and Friday sodium bicarbonate 650 mg tablet 650 mg PO TID famotidine 20 mg tablet 20 mg PO BID losartan 100 mg tablet 100 mg PO DAILY Referrals Referrals: Lexis Jasso [Primary Care Provider] -
[2024-01-02] MEDS ORDERED: ACETAMINOPHEN 325 MG TAB PO PRN (16:41)
[2024-01-02] MEDS ORDERED: ONDANSETRON INJ 2 MG/ML 2 ML VIAL IV PRN (16:41)
[2024-01-02] MEDS ORDERED: POLYETHYLENE (MIRALAX) 17 GM PACK PO PRN (16:41)
[2024-01-02] MEDS: allopurinoL 100 MG TAB PO SCH (18:11)
[2024-01-02] MEDS: ASPIRIN 81 MG ECTAB PO SCH (18:11)
--- NOTE | 2024-01-02 18:17 | Emergency Department Note ---
ED Visit Note I was consulted by the Advanced Practice Provider. I personally made/approved the management plan and take responsibility for the patient management. I performed a substantive portion of the visit. This includes the aspects of: -History/Physical/Personally seeing the patient -MDM -I independently interpreted the following studies: cxr shows developing CHF .
--- OUTSIDE RECORDS SUMMARY | 2024-01-02 20:45 | External Medical Summary ---
Author Name Unknown Address Unknown Organization [id number]:[facility] [place] - [address] [place] [address] Laboratory Report Ordering Provider Test Date Status JULIO C RODRIGUES 08/15/2023 12:53:22 Final Observation Date Value Abnormality Reference (Units ) Status Hep C Ab 08/15/2023 12:53:22 Negative Negative Final Further HCV quantitative jon ting not performed per protocol. Performing Location [facility] - [address] [place] [address]
--- OUTSIDE RECORDS SUMMARY | 2024-01-02 20:45 | External Medical Summary ---
Author Name Unknown Address Unknown Organization K01:[facility] - [address] [place] [address] Laboratory Report Ordering Provider Test Date Status JULIO C RODRIGUES 08/15/2023 12:53:22 Final Observation Date Value Abnormality Reference (Units ) Status Hep B surface Ag 08/15/2023 12:53:22 Negative Neg ative Final Performing Location [facility] - [address] [place] [address]
--- OUTSIDE RECORDS SUMMARY | 2024-01-02 20:45 | External Medical Summary ---
Author Name Unknown Address Unknown Organization [id number]:[facility] [place] [facility] [address] [facility] [address] Laboratory Report Ordering Provider Test Date Status JULIO C RODRIGUES 08/15/2023 12:53:22 Final Observation Date Value Abnormality Reference (Units) Status Protein 08/15/2023 12:53:22 6.7 6.0-8.3 (g/dL) Final Albumin/Protein.total [Pure mass fraction] in Serum or Plasma by Electrophoresis 08/15/2023 12:53:22 3.35 3.30-4.40 (g/dL) Final Alpha 1 globulin/Protein.tota l [Pure mass fraction] in Serum or Plasma by Electrophoresis 08/15/2023 12:53:22 0.24 0.10-0.30 (g/dL) Final Alpha 2 globulin/Protein.tota l [Pure mass fraction] in Serum or Plasma by Electrophoresis 08/15/2023 12:53:22 0.92 0.60-1.00 (g/dL) Final Beta globulin/Protein.tota l [Pure mass fraction] in Serum or Plasma by Electrophoresis 08/15/2023 12:53:22 0.74 Below low normal 0.80-1.30 (g/dL) Final Gamma globulin/Protein.tota l [Pure mass fraction] in Serum or Plasma by Electrophoresis 08/15/2023 12:53:22 1.46 0.70-1.70 (g/dL) Final Protein Fractions [Interpretation] in Serum or Plasma by Electrophoresis Narrative 08/15/2023 12:53:22 No paraprotein detected. Final Performing Location [facility] [place] [address] [facility] [address]
--- OUTSIDE RECORDS SUMMARY | 2024-01-02 20:45 | External Medical Summary ---
Author Name Unknown Address Unknown Organization [id number][place] [place] [address] [facility] [place] [address] Laboratory Report Ordering Provider Test Date Status JULIO C RODRIGUES 08/15/2023 12:53:22 Final Observation Date Value Abnormality Reference (Units ) Status Triglyceride 08/15/2023 12:53:22 98 <=174 ( mg/dL) Final Triglyceride Reference Range s (mg/dL):
<150 Acceptable
150-174 Borderline high
175-499 High
>=500 Very high Cholesterol 08/15/2023 12:53:22 111 <200 (mg /dL) Final Total Cholesterol Reference Ranges (mg/dL):
<200 Desirable
200-239 Borderline high
>=240 High HDL 08/15/2023 12:53:22 48 >39 (mg/dL ) Final HDL Cholesterol Reference Ra nges (mg/dL):
>=60 High (Desirable)
<50 Low (Undesirable) For Females
<40 Low (Undesirable) For Males NON-HDL CHOLESTEROL 08/15/2023 12:53:22 63 <=159 (mg/dL) Final Non-HDL Cholesterol Referenc e Range (mg/dL):
<100 Target level for high risk ASCVD patient
<130 Optimal for general population
130-159 Near optimal for general population
160-189 Borderline High
190-219 High
>=220 Very High LDL, (calculated) 08/15/2023 12:53:22 43 <= 129 (mg/dL) Final LDL Cholesterol Reference Ra nges (mg/dL):
<70 Target level for high risk ASCVD patient
<100 Optimal for general population
100-129 Near optimal for general population
130-159 Borderline high
160-189 High
>=190 Very high Performing Location [facility] [place] [address] [facility] [address]
--- OUTSIDE RECORDS SUMMARY | 2024-01-02 20:45 | External Medical Summary | Summary of Care ---
Author Name Unknown Organization [facility] Address [address] [facility] [place] [address] Phone [phone] Care Team Providers Care Stone Rougher Name Role Phone Aura Jasso MD Primary Care Provider [phone] Reason for Visit * Reason Comments Outpatient Testing Encounter Details Date Type Department Care Team Description 08/15/2023 Laboratory Laboratory [address] [place] [id number] [facility] [address] [place] [address] Kidney disease, chronic, stage IV (GFR 15-29 ml/min) (HCC); Anemia; Hyperparathyroidism, secondary renal (HCC); Vitamin D deficiency; Myopathy; Uricacidemia; Dyslipidemia, goal LDL below 160; Blood glucose elevated; Disorder of thyroid; Monoclonal paraproteinemia; 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 At bedtime. 0 Active Metamucil 48.57 % Oral Powder (Psyllium) Take by mouth. Three tablespoons in juice after breakfast 0 Active amLODIPine Besylate 10 MG Oral Tablet (Norvasc) Take 1 Tablet by mouth in the morning. In the morning. . 0 Active Metoprolol Tartrate 50 MG Oral Tablet (Lopressor) Take 0.5 Tablets by mouth in the morning and 0.5 Tablets before bedtime. 0 Active Acetaminophen 500 MG Oral Tablet Take 1 Tablet by mouth. Take 2 tabs at night for back pain as needed 0 Active NATURAL SUPPLEMENT Take by mouth daily. eucerin cream apply to dry skin twice per day 0 Active Dutasteride 0.5 MG Oral Capsule (Avodart) Take 1 Capsule by mouth in the morning. 0 Active Allopurinol 100 MG Oral Tablet (Zyloprim) Take 1 Tablet by mouth. Friday , Friday and Friday. 0 Active Aspirin 81 MG Oral Tablet Delayed Release Take 1 Tablet by mouth in the morning. After breakfast . 0 Active Nitroglycerin 0.4 MG Sublingual Tablet Sublingual (Nitrostat) Place 1 Tablet under the tongue. Take one tablet under the tongue as needed for chest pain or pressure. 0 Active Clopidogrel Bisulfate 75 MG Oral Tablet (pLAVix) Take 1 Tablet by mouth in the morning. 0 Active Vitamin D3 50 MCG (2000 UT) Oral Capsule Take 1 Capsule by mouth in the morning. 0 Active Isosorbide Mononitrate ER 60 MG Oral Tablet Extended Release 24 Hour (Imdur) Take 1 Tablet by mouth in the morning. In the morning.. 0 05/05/2023 Active Ocuvite Blue Light 25-5 MG Oral Capsule Take 1 Capsule by mouth in the morning. 0 05/05/2023 Active Jardiance 10 MG Oral Tablet Take 1 Tablet by mouth once a day Friday and only. 0 05/15/2023 Active Losartan Potassium 25 MG Oral Tablet (Cozaar) Take 1 Tablet by mouth in the morning. 30 Tablet 5 06/04/2023 Active Chlorthalidone 25 MG Oral Tablet (Hygroton) Take 0.5 Tablets by mouth in the morning. 45 Tablet 3 06/20/2023 Active documented as of this encounter (statuses as of 08/15/2023) Active Problems Problem Noted Date Chronic kidney disease, stage 4 (severe) 08/11/2023 Overview: Per CKD protocol AAA (abdominal aortic aneurysm) 12/28/19 16 Overview: 3.8 cm 05/12/14 Malignant neoplasm of upper lobe, bronch us or lung 04/21/2012 documented as of this encounter (statuses as of 08/15/2023) Resolved Problems Problem Noted Date Resolved Date Chronic kidney disease, stage 3b 06/09/2023 08/14/2023 Overview: Per CKD protocol documented as of this encounter (statuses as of 08/15/2023) Immunizations Name Administration Dates Next Due Seasonal Influenza, Quadrivalent Hd (Fluzone Hd) 09/01/2021 documented as of this encounter Social History Tobacco Use Types Packs/Day Years Used Date Smoking Tobacco: Former Cigarettes 1 Pipe Cigars Smokeless Tobacco: Former Comments:quit in Alcohol Use Standard Drinks/Week Comments Not Currently 0 (1 standard drink = 0.6 oz pur e alcohol) Sex Assigned at Date Recorded Not on file Job Start Date Occupation Industry Not on file Not on file Not on file documented as of this encounter Plan of Treatment Pending Results Name Type Priority Associated Diagnoses Date /Time COMPREHENSIVE METABOLIC PANEL Lab Routine Kidney disease, chronic, stage IV (GFR 15-29 ml/min) (HCC) Anemia Hyperparathyroidism, secondary renal (HCC) Vitamin D deficiency Myopathy Uricacidemia Dyslipidemia, goal LDL below 160 Blood glucose elevated 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 Tuberculosis exposure 08/15/2023 12:53 PM EDT MAGNESIUM Lab Routine Kidney disease, chronic, stage IV (GFR 15-29 ml/min) (HCC) Anemia Hyperparathyroidism, secondary renal (HCC) Vitamin D deficiency Myopathy Uricacidemia Dyslipidemia, goal LDL below 160 Blood glucose elevated 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 Tuberculosis exposure 08/15/2023 12:53 PM EDT PHOSPHORUS Lab Routine Kidney disease, chronic, stage IV (GFR 15-29 ml/min) (HCC) Anemia Hyperparathyroidism, secondary renal (HCC) Vitamin D deficiency Myopathy Uricacidemia Dyslipidemia, goal LDL below 160 Blood glucose elevated 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 Tuberculosis exposure 08/15/2023 12:53 PM EDT CBC Lab Routine Kidney disease, chronic, stage IV (GFR 15-29 ml/min) (HCC) Anemia Hyperparathyroidism, secondary renal (HCC) Vitamin D deficiency Myopathy Uricacidemia Dyslipidemia, goal LDL below 160 Blood glucose elevated 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 Tuberculosis exposure 08/15/2023 12:53 PM EDT IRON SCREEN, INCLUDING TIBC Lab Routine Kidney disease, chronic, stage IV (GFR 15-29 ml/min) (HCC) Anemia Hyperparathyroidism, secondary renal (HCC) Vitamin D deficiency Myopathy Uricacidemia Dyslipidemia, goal LDL below 160 Blood glucose elevated 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 Tuberculosis exposure 08/15/2023 12:53 PM EDT FERRITIN Lab Routine Kidney disease, chronic, stage IV (GFR 15-29 ml/min) (HCC) Anemia Hyperparathyroidism, secondary renal (HCC) Vitamin D deficiency Myopathy Uricacidemia Dyslipidemia, goal LDL below 160 Blood glucose elevated 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 Tuberculosis exposure 08/15/2023 12:53 PM EDT TRANSFERRIN Lab Routine Kidney disease, chronic, stage IV (GFR 15-29 ml/min) (HCC) Anemia Hyperparathyroidism, secondary renal (HCC) Vitamin D deficiency Myopathy Uricacidemia Dyslipidemia, goal LDL below 160 Blood glucose elevated 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 Tuberculosis exposure 08/15/2023 12:53 PM EDT FOLIC ACID Lab Routine Kidney disease, chronic, stage IV (GFR 15-29 ml/min) (HCC) Anemia Hyperparathyroidism, secondary renal (HCC) Vitamin D deficiency Myopathy Uricacidemia Dyslipidemia, goal LDL below 160 Blood glucose elevated 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 Tuberculosis exposure 08/15/2023 12:53 PM EDT VITAMIN B12 Lab Routine Kidney disease, chronic, stage IV (GFR 15-29 ml/min) (HCC) Anemia Hyperparathyroidism, secondary renal (HCC) Vitamin D deficiency Myopathy Uricacidemia Dyslipidemia, goal LDL below 160 Blood glucose elevated 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 Tuberculosis exposure 08/15/2023 12:53 PM EDT PTH Lab Routine Kidney disease, chronic, stage IV (GFR 15-29 ml/min) (HCC) Anemia Hyperparathyroidism, secondary renal (HCC) Vitamin D deficiency Myopathy Uricacidemia Dyslipidemia, goal LDL below 160 Blood glucose elevated 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 Tuberculosis exposure 08/15/2023 12:53 PM EDT 25-HYDROXY VITAMIN D Lab Routine Kidney disease, chronic, stage IV (GFR 15-29 ml/min) (HCC) Anemia Hyperparathyroidism, secondary renal (HCC) Vitamin D deficiency Myopathy Uricacidemia Dyslipidemia, goal LDL below 160 Blood glucose elevated 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 Tuberculosis exposure 08/15/2023 12:53 PM EDT CK Lab Routine Kidney disease, chronic, stage IV (GFR 15-29 ml/min) (HCC) Anemia Hyperparathyroidism, secondary renal (HCC) Vitamin D deficiency Myopathy Uricacidemia Dyslipidemia, goal LDL below 160 Blood glucose elevated 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 Tuberculosis exposure 08/15/2023 12:53 PM EDT URIC ACID Lab Routine Kidney disease, chronic, stage IV (GFR 15-29 ml/min) (HCC) Anemia Hyperparathyroidism, secondary renal (HCC) Vitamin D deficiency Myopathy Uricacidemia Dyslipidemia, goal LDL below 160 Blood glucose elevated 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 Tuberculosis exposure 08/15/2023 12:53 PM EDT LIPID PANEL WITH DIRECT LDL IF TG IS HIGH Lab Routine Kidney disease, chronic, stage IV (GFR 15-29 ml/min) (HCC) Anemia Hyperparathyroidism, secondary renal (HCC) Vitamin D deficiency Myopathy Uricacidemia Dyslipidemia, goal LDL below 160 Blood glucose elevated 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 Tuberculosis exposure 08/15/2023 12:53 PM EDT HEMOGLOBIN A1C Lab Routine Kidney disease, chronic, stage IV (GFR 15-29 ml/min) (HCC) Anemia Hyperparathyroidism, secondary renal (HCC) Vitamin D deficiency Myopathy Uricacidemia Dyslipidemia, goal LDL below 160 Blood glucose elevated 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 Tuberculosis exposure 08/15/2023 12:53 PM EDT TSH Lab Routine Kidney disease, chronic, stage IV (GFR 15-29 ml/min) (HCC) Anemia Hyperparathyroidism, secondary renal (HCC) Vitamin D deficiency Myopathy Uricacidemia Dyslipidemia, goal LDL below 160 Blood glucose elevated 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 Tuberculosis exposure 08/15/2023 12:53 PM EDT SERUM PROTEIN ELECTROPHORESIS REFLEX PROFILE Lab Routine Kidney disease, chronic, stage IV (GFR 15-29 ml/min) (HCC) Anemia Hyperparathyroidism, secondary renal (HCC) Vitamin D deficiency Myopathy Uricacidemia Dyslipidemia, goal LDL below 160 Blood glucose elevated 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 Tuberculosis exposure 08/15/2023 12:53 PM EDT SERUM IMMUNOFIXATION Lab Routine Kidney disease, chronic, stage IV (GFR 15-29 ml/min) (HCC) Anemia Hyperparathyroidism, secondary renal (HCC) Vitamin D deficiency Myopathy Uricacidemia Dyslipidemia, goal LDL below 160 Blood glucose elevated 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 Tuberculosis exposure 08/15/2023 12:53 PM EDT URINE IMMUNOFIXATION, BENCE ENRIQUE PROTEIN, RANDOM URINE Lab Routine Kidney disease, chronic, stage IV (GFR 15-29 ml/min) (HCC) Anemia Hyperparathyroidism, secondary renal (HCC) Vitamin D deficiency Myopathy Uricacidemia Dyslipidemia, goal LDL below 160 Blood glucose elevated 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 Tuberculosis exposure 08/15/2023 12:53 PM EDT ALBUMIN / CREATININE RATIO, URINE Lab Routine Kidney disease, chronic, stage IV (GFR 15-29 ml/min) (HCC) Anemia Hyperparathyroidism, secondary renal (HCC) Vitamin D deficiency Myopathy Uricacidemia Dyslipidemia, goal LDL below 160 Blood glucose elevated 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 Tuberculosis exposure 08/15/2023 12:53 PM EDT SODIUM, RANDOM URINE Lab Routine Kidney disease, chronic, stage IV (GFR 15-29 ml/min) (HCC) Anemia Hyperparathyroidism, secondary renal (HCC) Vitamin D deficiency Myopathy Uricacidemia Dyslipidemia, goal LDL below 160 Blood glucose elevated 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 Tuberculosis exposure 08/15/2023 12:53 PM EDT HEPATITIS B CORE ANTIBODIES IGG AND IGM Lab Routine Kidney disease, chronic, stage IV (GFR 15-29 ml/min) (HCC) Anemia Hyperparathyroidism, secondary renal (HCC) Vitamin D deficiency Myopathy Uricacidemia Dyslipidemia, goal LDL below 160 Blood glucose elevated 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 Tuberculosis exposure 08/15/2023 12:53 PM EDT HEPATITIS B CORE ANTIBODY IGM Lab Routine Kidney disease, chronic, stage IV (GFR 15-29 ml/min) (HCC) Anemia Hyperparathyroidism, secondary renal (HCC) Vitamin D deficiency Myopathy Uricacidemia Dyslipidemia, goal LDL below 160 Blood glucose elevated 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 Tuberculosis exposure 08/15/2023 12:53 PM EDT HEPATITIS B SURFACE ANTIBODY Lab Routine Kidney disease, chronic, stage IV (GFR 15-29 ml/min) (HCC) Anemia Hyperparathyroidism, secondary renal (HCC) Vitamin D deficiency Myopathy Uricacidemia Dyslipidemia, goal LDL below 160 Blood glucose elevated 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 Tuberculosis exposure 08/15/2023 12:53 PM EDT HEPATITIS B SURFACE ANTIGEN,CONFIRMATION Lab Routine Kidney disease, chronic, stage IV (GFR 15-29 ml/min) (HCC) Anemia Hyperparathyroidism, secondary renal (HCC) Vitamin D deficiency Myopathy Uricacidemia Dyslipidemia, goal LDL below 160 Blood glucose elevated 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 Tuberculosis exposure 08/15/2023 12:53 PM EDT HEPATITIS BE ANTIGEN Lab Routine Kidney disease, chronic, stage IV (GFR 15-29 ml/min) (HCC) Anemia Hyperparathyroidism, secondary renal (HCC) Vitamin D deficiency Myopathy Uricacidemia Dyslipidemia, goal LDL below 160 Blood glucose elevated 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 Tuberculosis exposure 08/15/2023 12:53 PM EDT HEPATITIS C ANTIBODY SCREEN WITH PROGRESSION TO HEPATITIS C RNA QUANTITATIVE Lab Routine Kidney disease, chronic, stage IV (GFR 15-29 ml/min) (HCC) Anemia Hyperparathyroidism, secondary renal (HCC) Vitamin D deficiency Myopathy Uricacidemia Dyslipidemia, goal LDL below 160 Blood glucose elevated 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 Tuberculosis exposure 08/15/2023 12:53 PM EDT QUANTIFERON TB GOLD PLUS Lab Routine Kidney disease, chronic, stage IV (GFR 15-29 ml/min) (HCC) Anemia Hyperparathyroidism, secondary renal (HCC) Vitamin D deficiency Myopathy Uricacidemia Dyslipidemia, goal LDL below 160 Blood glucose elevated 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 Tuberculosis exposure 08/15/2023 12:53 PM EDT RPR Lab Routine Kidney disease, chronic, stage IV (GFR 15-29 ml/min) (HCC) Anemia Hyperparathyroidism, secondary renal (HCC) Vitamin D deficiency Myopathy Uricacidemia Dyslipidemia, goal LDL below 160 Blood glucose elevated 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 Tuberculosis exposure 08/15/2023 12:53 PM EDT URINALYSIS, REFLEX TO CULTURE (NOT FOR NEUTROPENIC PATIENTS) Lab Routine Kidney disease, chronic, stage IV (GFR 15-29 ml/min) (HCC) Anemia Hyperparathyroidism, secondary renal (HCC) Vitamin D deficiency Myopathy Uricacidemia Dyslipidemia, goal LDL below 160 Blood glucose elevated 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 Tuberculosis exposure 08/15/2023 12:53 PM EDT HEPATITIS C ANTIBODY Lab Routine Kidney disease, chronic, stage IV (GFR 15-29 ml/min) (HCC) Anemia Hyperparathyroidism, secondary renal (HCC) Vitamin D deficiency Myopathy Uricacidemia Dyslipidemia, goal LDL below 160 Blood glucose elevated 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 Tuberculosis exposure 08/15/2023 12:53 PM EDT HEPATITIS C RNA ADD ON Lab Routine Kidney disease, chronic, stage IV (GFR 15-29 ml/min) (HCC) Anemia Hyperparathyroidism, secondary renal (HCC) Vitamin D deficiency Myopathy Uricacidemia Dyslipidemia, goal LDL below 160 Blood glucose elevated 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 Tuberculosis exposure 08/15/2023 12:53 PM EDT URINALYSIS, REFLEX TO CULTURE Lab Routine Kidney disease, chronic, stage IV (GFR 15-29 ml/min) (HCC) Anemia Hyperparathyroidism, secondary renal (HCC) Vitamin D deficiency Myopathy Uricacidemia Dyslipidemia, goal LDL below 160 Blood glucose elevated 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 Tuberculosis exposure 08/15/2023 12:53 PM EDT URINE PROTEIN ELECTROPHORESIS REFLEX PROFILE, RANDOM URINE Lab Routine Kidney disease, chronic, stage IV (GFR 15-29 ml/min) (HCC) Anemia Hyperparathyroidism, secondary renal (HCC) Vitamin D deficiency Myopathy Uricacidemia Dyslipidemia, goal LDL below 160 Blood glucose elevated 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 Tuberculosis exposure 08/15/2023 12:55 PM EDT Health Maintenance Due Date Last Done Comments COVID-19 Vaccine (#1) 1940 Pneumococcal Vaccine: 65+ Years (1 - PCV) 1945 Depression Screening 1951 DTaP,Tdap,and Td Vaccines (1 - Tdap) 1958 Zoster Vaccines (1 of 2) 1989 CKD PHOS USE SMARTSET 33112 08/06/2019 08/06/2018, 0 08/13/2013 AAA Monitoring 07/01/2023 07/01/2022, 01/02, 06/06/2014, Additional history exists Influenza Vaccine (FLU shot) (#1) 2023 09/01/2021 GFR 02/03/2024 08/05/2023, 06/01, 06/10/2023, Additional history exists Albumin/Creatinine Ratio 05/06/2024 05/06/2023 CKD HGB USE SMARTSET 73539 06/19/202406/19, 05/02/2023, 04/02/2023, Additional history exists GARDASIL-HPV IMMUNIZATION SERIES Aged Out No longer eligible based on patient's age to complete this topic Hepatitis B Aged Out No longer eligi ble based on patient's age to complete this topic MENINGOCOCCAL (MENACTRA/MENVEO) Aged Out No longer eligible based on patient's age to complete this topic documented as of this encounter Medical Devices Not on filedocumented as of this encounter Procedures Procedure Name Priority Date/Time Associated Diagnosis Comments URINALYSIS, REFLEX TO CULTURE (CUP ONLY) Routine 08/15/2023 12:53 PM EDT Kidney disease, chronic, stage IV (GFR 15-29 ml/min) (HCC) Anemia Hyperparathyroidism , secondary renal (HCC) Vitamin D deficiency Myopathy Uricacidemia Dyslipidemia, goal LDL below 160 Blood glucose elevated 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 Tuberculosis exposure documented in this encounter Results * URINALYSIS, REFLEX TO CULTURE (CUP ONLY) (08/15/2023 12:53 PM EDT) Urinalysis, Reflex to Culture Specimen Specimen collected and received 08/15/2023 2:01 PM EDT [facility] [place]rine Urine specimen / Unknown Non-blood Collection / Unknown 08/15/2023 12:53 PM EDT 08/15/2023 12:53 PM EDT [facility] URINE ORDERABLES [facility] [place] [address] [place] [address] documented in this encounter Visit Diagnoses Diagnosis Kidney disease, chronic, stage IV (GFR 15-29 ml/min) (HCC) Chronic kidney disease, Stage IV (severe) Anemia Anemia, unspecified Hyperparathyroidism, secondary renal (HCC) Secondary hyperparathyroidism (of renal origin) Vitamin D deficiency Unspecified vitamin D deficiency Myopathy Myopathy, unspecified Uricacidemia Other abnormal blood chemistry Dyslipidemia, goal LDL below 160 Other and unspecified hyperlipidemia Blood glucose elevated Other abnormal glucose Disorder of thyroid Unspecified disorder of thyroid 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
--- OUTSIDE RECORDS SUMMARY | 2024-01-02 20:45 | External Medical Summary | Summary of Care ---
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 Role Phone Aura Jasso MD Primary Care Provider [phone] Reason for Visit * Reason Comments Outpatient Testing Encounter Details Date Type Department Care Team Description 08/15/2023 Laboratory Laboratory [address] [place] [id number] [facility] [address] [place] [id number] Kidney disease, chronic, [...] as of this encounter (statuses as of 08/16/2023) Medications Medication Sig Dispensed Refills Start Date [...] as of this encounter (statuses as of 08/16/2023) Active Problems Problem Noted Date Chronic kidney disease, stage 4 (severe) 08/11/2023 Overview: Per CKD protocol AAA (abdominal aortic aneurysm) 12/28/19 16 Overview: 3.8 cm 05/12/14 Malignant neoplasm of upper lobe, bronch us or lung 04/21/2012 documented as of this encounter (statuses as of 08/16/2023) Resolved Problems Problem Noted Date Resolved Date Chronic kidney disease, stage 3b 06/09/2023 08/14/2023 Overview: Per CKD protocol documented as of this encounter (statuses as of 08/16/2023) Immunizations Name Administration Dates Next Due Seasonal [...] Name Type Priority Associated Diagnoses Date /Time SERUM PROTEIN ELECTROPHORESIS REFLEX PROFILE Lab Routine [...] Tdap) 1959 Zoster Vaccines (1 of 2) 1959 AAA Monitoring 07/01/2023 07/01/2022, 01/02, 06/06/2014, Additional history exists Influenza Vaccine (FLU shot) (#1) 2023 09/01/2021 GFR 02/13/2024 08/15/2023, 03/2023, 06/19/2023, Additional history exists Albumin/Creatinine Ratio 08/15/2024 08/15/2023, 05/2023 CKD HGB USE SMARTSET 11386 08/15/202408/15, 06/19/2023, 05/02/2023, Additional history exists CKD PHOS USE SMARTSET 60554 08/15/202408/01, 08/06/2018, 08/13/2013 GARDASIL-HPV IMMUNIZATION SERIES Aged Out No longer [...] Associated Diagnosis Comments URINALYSIS, REFLEX TO CULTURE Routine 08/15/2023 12:53 PM EDT Kidney disease, chronic, stage IV (GFR 15-29 ml/min) (HCC) Anemia Hyperparathyroidis m, secondary renal (HCC) Vitamin D deficiency Myopathy Uricacidemia Dyslipidemia, goal LDL below 160 Blood glucose elevated 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 Tuberculosis exposure URINALYSIS, REFLEX TO CULTURE (CUP ONLY) Routine 08/15/2023 12:53 PM EDT Kidney disease, chronic, stage IV (GFR 15-29 ml/min) (HCC) Anemia Hyperparathyroidis m, secondary renal (HCC) Vitamin D deficiency Myopathy Uricacidemia Dyslipidemia, goal LDL below 160 Blood glucose elevated 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 Tuberculosis exposure HEPATITIS C RNA ADD ON Routine 12:53 PM EDT Kidney disease, chronic, stage IV (GFR 15-29 ml/min) (HCC) Anemia Hyperparathyroidis m, secondary renal (HCC) Vitamin D deficiency Myopathy Uricacidemia Dyslipidemia, goal LDL below 160 Blood glucose elevated 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 Tuberculosis exposure URINALYSIS, REFLEX TO CULTURE (NOT FOR NEUTROPENIC PATIENTS) Routine 08/15/2023 12:53 PM EDT Kidney disease, chronic, stage IV (GFR 15-29 ml/min) (HCC) Anemia Hyperparathyroidis m, secondary renal (HCC) Vitamin D deficiency Myopathy Uricacidemia Dyslipidemia, goal LDL below 160 Blood glucose elevated 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 Tuberculosis exposure HEPATITIS B SURFACE ANTIBODY Routine 08/15/2023 12:53 PM EDT Kidney disease, chronic, stage IV (GFR 15-29 ml/min) (HCC) Anemia Hyperparathyroidis m, secondary renal (HCC) Vitamin D deficiency Myopathy Uricacidemia Dyslipidemia, goal LDL below 160 Blood glucose elevated 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 Tuberculosis exposure LIPID PANEL WITH DIRECT LDL IF TG IS HIGH Routine 08/15/2023 12:53 PM EDT Kidney disease, chronic, stage IV (GFR 15-29 ml/min) (HCC) Anemia Hyperparathyroidis m, secondary renal (HCC) Vitamin D deficiency Myopathy Uricacidemia Dyslipidemia, goal LDL below 160 Blood glucose elevated 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 Tuberculosis exposure 25-HYDROXY VITAMIN D Routine 08/15/2023 12:53 PM EDT Kidney disease, chronic, stage IV (GFR 15-29 ml/min) (HCC) Anemia Hyperparathyroidis m, secondary renal (HCC) Vitamin D deficiency Myopathy Uricacidemia Dyslipidemia, goal LDL below 160 Blood glucose elevated 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 Tuberculosis exposure HEPATITIS C ANTIBODY SCREEN WITH PROGRESSION TO HEPATITIS C RNA QUANTITATIVE Routine 08/15/2023 12:53 PM EDT Kidney disease, chronic, stage IV (GFR 15-29 ml/min) (HCC) Anemia Hyperparathyroidis m, secondary renal (HCC) Vitamin D deficiency Myopathy Uricacidemia Dyslipidemia, goal LDL below 160 Blood glucose elevated 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 Tuberculosis exposure HEMOGLOBIN A1C Routine 08/15/2023 12:53 PM EDT Kidney disease, chronic, stage IV (GFR 15-29 ml/min) (HCC) Anemia Hyperparathyroidis m, secondary renal (HCC) Vitamin D deficiency Myopathy Uricacidemia Dyslipidemia, goal LDL below 160 Blood glucose elevated 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 Tuberculosis exposure COMPREHENSIVE METABOLIC PANEL Routine 08/15/2023 12:53 PM EDT Kidney disease, chronic, stage IV (GFR 15-29 ml/min) (HCC) Anemia Hyperparathyroidis m, secondary renal (HCC) Vitamin D deficiency Myopathy Uricacidemia Dyslipidemia, goal LDL below 160 Blood glucose elevated 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 Tuberculosis exposure HEPATITIS C ANTIBODY Routine 08/15/2023 12:53 PM EDT Kidney disease, chronic, stage IV (GFR 15-29 ml/min) (HCC) Anemia Hyperparathyroidis m, secondary renal (HCC) Vitamin D deficiency Myopathy Uricacidemia Dyslipidemia, goal LDL below 160 Blood glucose elevated 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 Tuberculosis exposure HEPATITIS B CORE ANTIBODY IGM Routine 08/15/2023 12:53 PM EDT Kidney disease, chronic, stage IV (GFR 15-29 ml/min) (HCC) Anemia Hyperparathyroidis m, secondary renal (HCC) Vitamin D deficiency Myopathy Uricacidemia Dyslipidemia, goal LDL below 160 Blood glucose elevated 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 Tuberculosis exposure HEPATITIS B CORE ANTIBODIES IGG AND IGM Routine 08/15/2023 12:53 PM EDT Kidney disease, chronic, stage IV (GFR 15-29 ml/min) (HCC) Anemia Hyperparathyroidis m, secondary renal (HCC) Vitamin D deficiency Myopathy Uricacidemia Dyslipidemia, goal LDL below 160 Blood glucose elevated 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 Tuberculosis exposure FOLIC ACID Routine 08/15/2023 12:53 PM EDT Kidney disease, chronic, stage IV (GFR 15-29 ml/min) (HCC) Anemia Hyperparathyroidis m, secondary renal (HCC) Vitamin D deficiency Myopathy Uricacidemia Dyslipidemia, goal LDL below 160 Blood glucose elevated 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 Tuberculosis exposure IRON SCREEN, INCLUDING TIBC Routine 08/15/2023 12:53 PM EDT Kidney disease, chronic, stage IV (GFR 15-29 ml/min) (HCC) Anemia Hyperparathyroidis m, secondary renal (HCC) Vitamin D deficiency Myopathy Uricacidemia Dyslipidemia, goal LDL below 160 Blood glucose elevated 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 Tuberculosis exposure CK Routine 08/15/2023 12:53 PM EDT Kidney disease, chronic, stage IV (GFR 15-29 ml/min) (HCC) Anemia Hyperparathyroidis m, secondary renal (HCC) Vitamin D deficiency Myopathy Uricacidemia Dyslipidemia, goal LDL below 160 Blood glucose elevated 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 Tuberculosis exposure SODIUM, RANDOM URINE Routine 08/15/2023 12:53 PM EDT Kidney disease, chronic, stage IV (GFR 15-29 ml/min) (HCC) Anemia Hyperparathyroidis m, secondary renal (HCC) Vitamin D deficiency Myopathy Uricacidemia Dyslipidemia, goal LDL below 160 Blood glucose elevated 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 Tuberculosis exposure PHOSPHORUS Routine 08/15/2023 12:53 PM EDT Kidney disease, chronic, stage IV (GFR 15-29 ml/min) (HCC) Anemia Hyperparathyroidis m, secondary renal (HCC) Vitamin D deficiency Myopathy Uricacidemia Dyslipidemia, goal LDL below 160 Blood glucose elevated 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 Tuberculosis exposure PTH Routine 08/15/2023 12:53 PM EDT Kidney disease, chronic, stage IV (GFR 15-29 ml/min) (HCC) Anemia Hyperparathyroidis m, secondary renal (HCC) Vitamin D deficiency Myopathy Uricacidemia Dyslipidemia, goal LDL below 160 Blood glucose elevated 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 Tuberculosis exposure ALBUMIN / CREATININE RATIO, URINE Routine 08/15/2023 12:53 PM EDT Kidney disease, chronic, stage IV (GFR 15-29 ml/min) (HCC) Anemia Hyperparathyroidis m, secondary renal (HCC) Vitamin D deficiency Myopathy Uricacidemia Dyslipidemia, goal LDL below 160 Blood glucose elevated 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 Tuberculosis exposure CBC Routine 08/15/2023 12:53 PM EDT Kidney disease, chronic, stage IV (GFR 15-29 ml/min) (HCC) Anemia Hyperparathyroidis m, secondary renal (HCC) Vitamin D deficiency Myopathy Uricacidemia Dyslipidemia, goal LDL below 160 Blood glucose elevated 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 Tuberculosis exposure URIC ACID Routine 08/15/2023 12:53 PM EDT Kidney disease, chronic, stage IV (GFR 15-29 ml/min) (HCC) Anemia Hyperparathyroidis m, secondary renal (HCC) Vitamin D deficiency Myopathy Uricacidemia Dyslipidemia, goal LDL below 160 Blood glucose elevated 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 Tuberculosis exposure TRANSFERRIN Routine 08/15/2023 12:53 PM EDT Kidney disease, chronic, stage IV (GFR 15-29 ml/min) (HCC) Anemia Hyperparathyroidis m, secondary renal (HCC) Vitamin D deficiency Myopathy Uricacidemia Dyslipidemia, goal LDL below 160 Blood glucose elevated 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 Tuberculosis exposure TSH Routine 08/15/2023 12:53 PM EDT Kidney disease, chronic, stage IV (GFR 15-29 ml/min) (HCC) Anemia Hyperparathyroidis m, secondary renal (HCC) Vitamin D deficiency Myopathy Uricacidemia Dyslipidemia, goal LDL below 160 Blood glucose elevated 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 Tuberculosis exposure MAGNESIUM Routine 08/15/2023 12:53 PM EDT Kidney disease, chronic, stage IV (GFR 15-29 ml/min) (HCC) Anemia Hyperparathyroidis m, secondary renal (HCC) Vitamin D deficiency Myopathy Uricacidemia Dyslipidemia, goal LDL below 160 Blood glucose elevated 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 Tuberculosis exposure FERRITIN Routine 08/15/2023 12:53 PM EDT Kidney disease, chronic, stage IV (GFR 15-29 ml/min) (HCC) Anemia Hyperparathyroidis m, secondary renal (HCC) Vitamin D deficiency Myopathy Uricacidemia Dyslipidemia, goal LDL below 160 Blood glucose elevated 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 Tuberculosis exposure VITAMIN B12 Routine 08/15/2023 12:53 PM EDT Kidney disease, chronic, stage IV (GFR 15-29 ml/min) (HCC) Anemia Hyperparathyroidis m, secondary renal (HCC) Vitamin D deficiency Myopathy Uricacidemia Dyslipidemia, goal LDL below 160 Blood glucose elevated 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 Tuberculosis exposure documented in this encounter Results * (ABNORMAL) URINALYSIS, REFLEX TO CULTURE (08/15/2023 12:53 PM EDT) Color, Urine Colorless Colorless, Light Yellow, Yellow, Dark Yellow 08/15/2023 10:23 PM EDT [facility] Clarity, Urine Clear Clear 08/15/2023 10:23 PM EDT [facility] Glucose, Urine Negative Negative mg/dL 08/15/2023 10:23 PM EDT [facility] Bilirubin, Urine Negative Negative 08/15/2023 10:23 PM EDT [facility] Ketone, Urine Negative Negative mg/dL 08/15/2023 10:23 PM EDT [facility] Specific [place], Urine 1.015 1.003 - 1.030 08/15/2023 10:23 PM EDT [facility] Blood, Urine Negative Negative 08/15/2023 10:23 PM EDT [facility] pH, Urine 6.0 5.0 - 7.5 Units 08/15/2023 10:23 PM EDT [facility] Protein, Urine 30(A) Negative mg/dL 08/15/2023 10:23 PM EDT [facility] Urobilinogen, Urine Normal Normal mg/dL 08/15/2023 10:23 PM EDT [facility] Nitrite, Urine Negative Negative 08/15/2023 10:23 PM EDT [facility] Esterase, Urine Negative Negative 08/15/2023 10:23 PM EDT [facility] RBC, Urine 0-2 0 - 2 /HPF 08/15/2023 10:23 PM EDT [facility] WBC, Urine 0-2 0 - 2 /HPF 08/15/2023 10:23 PM EDT LABORATORY [facility] Bacteria, Urine 0-25 0 - 25 /HPF 08/15/2023 10:23 PM EDT LABORATORY [facility] Culture, Urine 08/15/2023 10:23 PM EDT LABORATORY [facility] Comment:Culture not indicate d by urinalysis results Urine Urine specimen / Unknown Non-blood Collection / Unknown 08/15/2023 12:53 PM EDT 08/15/2023 12:53 PM EDT Booker DangPurdy [facility] LAB URINE ORDERABLES Performing Organization Address City/[facility]/ZIP Co de Phone Number LABORATORY [facility] [address] [place] [address] * URINALYSIS, REFLEX TO CULTURE (CUP ONLY) (08/15/2023 12:53 PM EDT) Urinalysis, Reflex to Culture Specimen Specimen collected and received 08/15/2023 2:01 PM EDT LABORATORY [facility] Urine Urine specimen / Unknown Non-blood Collection / Unknown 08/15/2023 12:53 PM EDT 08/15/2023 12:53 PM EDT Booker Sullivan [facility] URINE ORDERABLES Performing Organization Address [facility] de Phone Number LABORATORY [facility] [address] [place] [address] * HEPATITIS C RNA ADD ON (08/15/2023 12:53 PM EDT) Blood Venous blood specimen / Unknown Venipuncture / Unknown 08/15/2023 12:53 PM EDT 08/15/2023 12:53 PM EDT Booker Good [facility] LAB BLOOD ORDERABLES Performing Organization Address City/[facility]/ZIP Co de Phone Number LABORATORY [facility] [address] [place] [address] * HEPATITIS C ANTIBODY (08/15/2023 12:53 PM EDT) Hepatitis C Antibody Negative Negative 08/16/2023 12:52 AM EDT LABORATORY [facility] Comment:Further HCV quantita tive testing not performed per protocol. Blood Venous blood specimen / Unknown Venipuncture / Unknown 08/15/2023 12:53 PM EDT 08/15/2023 12:53 PM EDT Booker Dangpadmini [employer] DO LAB BLOOD ORDERABLES Performing Organization Address City/[facility]/ZIP Co de Phone Number LABORATORY [facility] [address] [place] [address] * HEPATITIS B SURFACE ANTIBODY (08/15/2023 12:53 PM EDT) Hepatitis B Surface Antibody, Quantitative <3.5 mIU/mL 08/16/2023 12:52 AM EDT LABORATORY [facility] Hepatitis B Surface Antibody, Qualitative Negative 08/16/2023 12:52 AM EDT LABORATORY [facility] Hepatitis B Surface Antibody, Interpretation NOT immune to Hepatitis B Virus 08/16/2023 12:52 AM EDT LABORATORY [facility] Comment: POSITIVE: >=11.5 mIU/mL INDETERMINATE: 8.5-<11.5 mIU/mL NEGATIVE: <8.5 mIU/mL Blood Venous blood specimen / Unknown Venipuncture / Unknown 08/15/2023 12:53 PM EDT 08/15/2023 12:53 PM EDT Booker Dangpadmini [employer] DO LAB BLOOD ORDERABLES Performing Organization Address [facility]/ZIP Co de Phone Number LABORATORY [facility] [address] [place] [address] * HEPATITIS B CORE ANTIBODY IGM (08/15/2023 12:53 PM EDT) Hepatitis B Core Antibody IgM Negative Negative 08/16/2023 12:52 AM EDT LABORATORY [facility] Blood Venous blood specimen / Unknown Venipuncture / Unknown 08/15/2023 12:53 PM EDT 08/15/2023 12:53 PM EDT Booker Sullivan [facility] DO LAB BLOOD ORDERABLES LABORATORY [facility] [address] [place] [address] * HEPATITIS B CORE ANTIBODIES IGG AND IGM (08/15/2023 12:53 PM EDT) Pathologist [facility] Hepatitis B Core Antibodies IgG and IgM Negative Negative 08/16/2023 12:52 AM EDT LABORATORY [facility] Blood Venous blood specimen / Unknown Venipuncture / Unknown 08/15/2023 12:53 PM EDT 08/15/2023 12:53 PM EDT Booker Giordanokim [employer] LAB BLOOD ORDERABLES Performing Organization Address [facility] Co de Phone Number LABORATORY [facility] [address] [place] [address] * SODIUM, RANDOM URINE (08/15/2023 12:53 PM EDT) Pathologist [facility] Sodium, Random Urine 112 mmol/L 08/15/2023 10:27 PM EDT LABORATORY [facility] Urine Non-blood Collection / Unknown 08/15/2023 12:53 PM EDT 08/15/2023 1:49 PM EDT Booker Laurie [facility] LAB URINE ORDERABLES Performing Organization Address [facility] Co de Phone Number LABORATORY [facility] [address] [place] [address] * (ABNORMAL) ALBUMIN / CREATININE RATIO, URINE (08/15/2023 12:53 PM EDT) Pathologist [facility] Albumin, Random Urine 10.23 mg/dL 08/15/2023 10:25 PM EDT LABORATORY [facility] Creatinine, Random Urine 59 mg/dL 08/15/2023 10:25 PM EDT LABORATORY [facility] Albumin / Creatinine Ratio, Urine 173(H) <30 mg/g Creat 08/15/2023 10:25 PM EDT LABORATORY [facility] Urine Urine specimen obtained by clean catch procedure / Unknown Non-blood Collection / Unknown 08/15/2023 12:53 PM EDT 08/15/2023 12:53 PM EDT Narrative LABORATORY [facility] - 08/15/2023 10:25 PM EDT Normal: <30 mg/g creatinine High: 30-300 mg/g creatinine Very High: >300 mg/g creatinine Nephrotic: >2200 mg/g creatinine [facility] URINE ORDERABLES Performing Organization Address City/[facility]/ZIP Co de Phone Number LABORATORY [facility] [address] [place] [address] * TSH (08/15/2023 12:53 PM EDT) Pathologist [facility] TSH 2.37 0.27 - 4.20 uIU/mL 08/16/2023 12:13 AM EDT LABORATORY [facility] Blood Venous blood specimen / Unknown Venipuncture / Unknown 08/15/2023 12:53 PM EDT 08/15/2023 12:53 PM EDT Booker Sullivan [facility] LAB BLOOD ORDERABLES Performing Organization Address [facility] de Phone Number LABORATORY [facility] [address] [place] [address] * (ABNORMAL) HEMOGLOBIN A1C (08/15/2023 12:53 PM EDT) [facility] Hemoglobin A1C 5.8(H) 4.0 - 5.6 % 08/15/2023 10:23 PM EDT LABORATORY [facility] Comment:The use of HbA1c to monitor glycemic status is based on normal hemoglobin and HbA composition. This test should not be used in patients with abnormal hemoglobin that affects the half life of the red blood cell or the in vivo glycation rates. Estimated Average Glucose 120 <126 mg/dL 08/15/2023 10:23 PM EDT LABORATORY [facility] Blood Venous blood specimen / Unknown Venipuncture / Unknown 08/15/2023 12:53 PM EDT 08/15/2023 12:53 PM EDT Booker Sullivan [facility] LAB BLOOD ORDERABLES Performing Organization Address City/[facility]/ZIP Co de Phone Number LABORATORY [facility] [address] [place] [address] * LIPID PANEL WITH DIRECT LDL IF TG IS HIGH (08/15/2023 12:53 PM EDT) Triglycerides 98 <=174 mg/dL 08/15/2023 11:26 PM EDT LABORATORY [facility] Comment: Triglyceride Reference Ranges (mg/dL): <150 Acceptable 150-174 Borderline high 175-499 High >=500 Very high Cholesterol 111 <200 mg/dL 08/15/2023 11:26 PM EDT LABORATORY [facility] Comment: Total Cholesterol Reference Ranges (mg/dL): <200 Desirable 200-239 Borderline high >=240 High HDL Cholesterol 48 >39 mg/dL 11:26 PM EDT LABORATORY [facility] Comment: HDL Cholesterol Reference Ranges (mg/dL): >=60 High (Desirable) <50 Low (Undesirable) For Females <40 Low (Undesirable) For Males Non-HDL Cholesterol 63 <=159 mg/dL 08/15/2023 11:26 PM EDT LABORATORY [facility] Comment: Non-HDL Cholesterol Reference Range (mg/dL): <100 Target level for high risk ASCVD patient <130 Optimal for general population 130-159 Near optimal for general population 160-189 Borderline High 190-219 High >=220 Very High LDL Cholesterol 43 <=129 mg/dL 08/15/2023 11:26 PM EDT LABORATORY [facility] Comment: LDL Cholesterol Reference Ranges (mg/dL): <70 Target level for high risk ASCVD patient <100 Optimal for general population 100-129 Near optimal for general population 130-159 Borderline high 160-189 High >=190 Very high Blood Venous blood specimen / Unknown Venipuncture / Unknown 08/15/2023 12:53 PM EDT 08/15/2023 12:53 PM EDT Booker Willson LAB BLOOD ORDERABLES LABORATORY [facility] [address] [place] [address] * (ABNORMAL) URIC ACID (08/15/2023 12:53 PM EDT) Uric Acid 7.3(H) 3.4 - 7.0 mg/dL 08/15/2023 11:27 PM EDT LABORATORY [facility] Blood Venous blood specimen / Unknown Venipuncture / Unknown 08/15/2023 12:53 PM EDT 08/15/2023 12:53 PM EDT Booker Sullivan [facility] LAB BLOOD ORDERABLES LABORATORY [facility] [address] [place] [address] * CK (08/15/2023 12:53 PM EDT) CK 71 39 - 308 U/L 08/15/2023 11:26 PM EDT LABORATORY [facility] Blood Venous blood specimen / Unknown Venipuncture / Unknown 08/15/2023 12:53 PM EDT 08/15/2023 12:53 PM EDT Booker Dangpadmini [facility] LAB BLOOD ORDERABLES Performing Organization Address [facility] de Phone Number LABORATORY [facility] [address] [place] [address] * 25-HYDROXY VITAMIN D (08/15/2023 12:53 PM EDT) Pathologist [facility] 25-Hydroxy Vitamin D 68 >19 ng/mL 08/15/2023 11:04 PM EDT LABORATORY [facility] Blood Venous blood specimen / Unknown Venipuncture / Unknown 08/15/2023 12:53 PM EDT 08/15/2023 12:53 PM EDT Narrative LABORATORY [facility] - 08/15/2023 11:04 PM EDT Deficient: <20 ng/mL Insufficient: 20-29 ng/mL Recommended/Optimum:30-50 ng/mL Vitamin D intoxication is rare. If suspicious of Vitamin D toxicity, evaluation of serum Calcium and PTH is recommended. Booker Sullivan [facility] LAB BLOOD ORDERABLES Performing Organization Address City/[facility]/ZIP Co de Phone Number LABORATORY [facility] [address] [place] [address] * (ABNORMAL) PTH (08/15/2023 12:53 PM EDT) Pathologist [facility] PTH 83(H) 15 - 65 pg/mL 08/16/2023 12:13 AM EDT LABORATORY [facility] Blood Venous blood specimen / Unknown Venipuncture / Unknown 08/15/2023 12:53 PM EDT 08/15/2023 12:53 PM EDT [facility] LABORATORY [facility] [address] [place] [address] * VITAMIN B12 (08/15/2023 12:53 PM EDT) [facility] Vitamin B12 343 232 - 1,245 pg/mL 08/16/2023 12:13 AM EDT LABORATORY [facility] Blood Venous blood specimen / Unknown Venipuncture / Unknown 08/15/2023 12:53 PM EDT 08/15/2023 12:53 PM EDT Booker Sullivan [facility] LAB BLOOD ORDER[facility]LES LABORATORY [place] [address] [place] [address] * FOLIC ACID (08/15/2023 12:53 PM EDT) [facility] Folic Acid 9.4 >4.5 ng/mL 08/16/2023 12:13 AM EDT LABORATORY [facility] Blood Venous blood specimen / Unknown Venipuncture / Unknown 08/15/2023 12:53 PM EDT 08/15/2023 12:53 PM EDT [facility] LABORATORY [facility] [address] [place] [address] * (ABNORMAL) TRANSFERRIN (08/15/2023 12:53 PM EDT) Transferrin 189(L) 200 - 360 mg/dL 08/15/2023 11:27 PM EDT LAB[facility]ORY [facility] Blood Venous blood specimen / Unknown Venipuncture / Unknown 08/15/2023 12:53 PM EDT 08/15/2023 12:53 PM EDT Booker Dangpadmini [facility] LAB BLOOD ORDERABLES Performing Organization Address City/[facility]/ZIP Co de Phone Number LABORATORY [facility] [address] [place] [address] * FERRITIN (08/15/2023 12:53 PM EDT) Ferritin 68 30 - 400 ng/mL 08/16/2023 12:13 AM EDT LABORATORY [facility] Blood Venous blood specimen / Unknown Venipuncture / Unknown 08/15/2023 12:53 PM EDT 08/15/2023 12:53 PM EDT Booker Sullivan [facility] LAB BLOOD ORDERABLES Performing Organization Address [facility] de Phone Number LABORATORY [facility] [address] [place] [address] * IRON SCREEN, INCLUDING TIBC (08/15/2023 12:53 PM EDT) Iron 86 45 - 176 ug/dL 08/16/2023 2:17 AM EDT LAB[facility]ATORY [facility] Iron Binding Capacity 256 250 - 425 ug/dL 08/16/2023 2:17 AM EDT LAB[facility]ATORY [facility] Transferrin Saturation Percent 34 15 - 55 % 08/16/2023 2:17 AM EDT LAB[facility]ATORY [facility] Blood Venous blood specimen / Unknown Venipuncture / Unknown 08/15/2023 12:53 PM EDT 08/15/2023 12:53 PM EDT Booker Sullivan [facility] LAB BLOOD ORDERABLES Performing Organization Address [facility]/ZIP Co de Phone Number LABORATORY [facility] [address] [place] [address] * (ABNORMAL) CBC (08/15/2023 12:53 PM EDT) WBC 6.07 4.00 - 10.80 K/uL 08/15/2023 10:18 PM EDT LAB[facility]ATORY [facility] RBC 3.33 4.50 - 5.25 M/uL 08/15/2023 10:18 PM EDT LAB[facility]ATORY [facility] HGB 10.9(L) 14.0 - 16.8 g/dL 08/15/2023 10:18 PM EDT LAB[facility]ATORY [facility] HCT 34.3(L) 40.0 - 48.4 % 08/15/2023 10:18 PM EDT LAB[facility]ATORY [facility] MCV 103.0 82.0 - 99.5 fL 08/15/2023 10:18 PM EDT LAB[facility]ATORY [facility] MCH 32.7 27.0 - 34.0 pg 08/15/2023 10:18 PM EDT LAB[facility]ATORY [facility] MCHC 31.8 32.0 - 36.0 g/dL 08/15/2023 10:18 PM EDT LAB[facility]ATORY [facility] RDW 13.4 11.5 - 15.5 % 08/15/2023 10:18 PM EDT LAB[facility]ATORY [facility] PLT 202 140 - 400 K/uL 08/15/2023 10:18 PM EDT LAB[facility]ATORY [facility] MPV 10.9 6.6 - 11.1 fL 08/15/2023 10:18 PM EDT LAB[facility]ATORY [facility] nRBCs 0 <=0 /100 WBCs 08/15/2023 10:18 PM EDT LAB[facility]ATORY [facility] Blood Venous blood specimen / Unknown Venipuncture / Unknown 08/15/2023 12:53 PM EDT 08/15/2023 12:53 PM EDT Booker Sullivan [facility] LAB BLOOD ORDERABLES LABORATORY [facility] [address] [place] [address] * PHOSPHORUS (08/15/2023 12:53 PM EDT) Phosphorus 3.7 2.5 - 4.8 mg/dL 08/15/2023 11:27 PM EDT LAB[facility]ATORY [facility] Blood Venous blood specimen / Unknown Venipuncture / Unknown 08/15/2023 12:53 PM EDT 08/15/2023 12:53 PM EDT [facility] BLO[facility]LES LABORATORY [facility] [address] [place] [address] * MAGNESIUM (08/15/2023 12:53 PM EDT) Pathologist [facility] Magnesium 2.4 1.5 - 2.6 mg/dL 08/15/2023 11:26 PM EDT LABORATORY [facility] Blood Venous blood specimen / Unknown Venipuncture / Unknown 08/15/2023 12:53 PM EDT 08/15/2023 12:53 PM EDT [facility] LAB BLOOD [facility]ABLES Performing Organization Address [facility] Co de Phone Number LABORATORY [facility] [address] [place] [address] * (ABNORMAL) COMPREHENSIVE METABOLIC PANEL (08/15/2023 12:53 PM EDT) BUN 44(H) 6 - 20 mg/dL 08/16/2023 2:17 AM EDT LABORATORY [facility] Creatinine 2.6(H) 0.6 - 1.2 mg/dL 08/16/2023 2:17 AM EDT LABORATORY [facility] Estimated Glomerular Filtration Rate 24(L) >=60 mL/min 08/16/2023 2:17 AM EDT LABORATORY C Comment:eGFR is calculated b ased on the CKD-EPI 2020 equation Sodium 142 135 - 146 mmol/L 08/16/2023 2:17 AM EDT LAB[facility]ATORY [facility] Potassium 5.5(H) 3.5 - 5.1 mmol/L 08/16/2023 2:17 AM EDT LAB[facility]ATORY [facility] Chloride 109(H) 98 - 107 mmol/L 08/16/2023 2:17 AM EDT LAB[facility]ATORY [facility] CO2 19(L) 22 - 32 mmol/L 08/16/2023 2:17 AM EDT LAB[facility]ATORY [facility] Anion Gap 14 7 - 15 mmol/L 08/16/2023 2:17 AM EDT LAB[facility]ATORY [facility] Glucose 99 70 - 120 mg/dL 08/16/2023 2:17 AM EDT LAB[facility]ATORY [facility] Albumin 4.1 3.8 - 5.0 g/dL 08/16/2023 2:17 AM EDT LAB[facility]ATORY [facility] AST 12 10 - 50 U/L 08/16/2023 2:17 AM EDT LAB[facility]ATORY [facility] Alkaline Phosphatase 77 35 - 130 U/L 08/16/2023 2:17 AM EDT LAB[facility]ATORY [facility] Bilirubin, Total 0.4 <=1.2 mg/dL 08/16/2023 2:17 AM EDT LAB[facility]ATORY [facility] Calcium 9.7 8.4 - 10.2 mg/dL 08/16/2023 2:17 AM EDT LAB[facility]ATORY [facility] Protein 6.7 6.0 - 8.3 g/dL 08/16/2023 2:17 AM EDT LAB[facility]ATORY [facility] ALT 9(L) 10 - 50 U/L 08/16/2023 2:17 AM EDT LAB[facility]ATORY [facility] Blood Venous blood specimen / Unknown Venipuncture / Unknown 08/15/2023 12:53 PM EDT 08/15/2023 12:53 PM EDT Booker Sullivan [facility] LAB BLOOD ORDERABLES LAB[facility]ATORY [facility] [address] [place] [address] documented in this encounter Visit [...] tuberculosis documented in this encounter Care Teams Buhr Mill Operator Relationship Specialty Start Date End Date Aura Jasso MD [address] [place] [address] [place] [id number] PCP - General 01/16/01 documented as of this encounter
--- OUTSIDE RECORDS SUMMARY | 2024-01-02 20:45 | External Medical Summary ---
Author Name Unknown Address Unknown Organization [id number]:LABORATORY [facility] [place] [place] - [address] [place] [address] Laboratory Report Ordering Provider Test Date Status JULIO C RODRIGUES 08/15/2023 12:53:22 Final Observation Date Value Abnormality Reference (Units ) Status Folic Acid 08/15/2023 12:53:22 9.4 >4.5 (ng/ mL) Final Performing Location LAB[facility]ATORY [facility] - [address] [place] [address]
--- OUTSIDE RECORDS SUMMARY | 2024-01-02 20:45 | External Medical Summary | Summary of Care ---
Author Name Unknown Organization [facility] Address [address] [address] Phone [phone] Care Team Providers Care Cutting Inspector Name Role Phone Aura Jasso MD Primary Care Provider [phone] Encounter Details Date Type Department Care Team (Late st Contact Info) Description 05/19/2023 Population Health External Data Unspecified Department Allergies Active Allergy Reactions Criticality Noted Date Comments Lisinopril Cough Medium 05/25/2023 Penicillin G Rash 04/21/2012 documented as of this encounter (statuses as of 10/13/2023) Medications Medication Sig Dispensed Refills Start Date [...] day Friday and only. 0 05/15/2023 Active documented as of this encounter (statuses as of 10/13/2023) Active Problems Problem Noted Date Diagnosed Date Chronic kidney disease, stage 4 (severe) 023 Overview: Per CKD protocol AAA (abdominal aortic aneurysm) 12/28/2015 Overview: 3.8 cm 05/12/14 Malignant neoplasm of upper lobe, 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 documented as of this encounter (statuses as of 10/13/2023) Resolved Problems Problem Noted Date Diagnosed Date Resolved Date Chronic kidney disease, stage 3b 06/09/2023 08/14/2023 Overview: Per CKD protocol documented as of this encounter (statuses as of 10/13/2023) Immunizations Name Administration Dates Next Due Seasonal Influenza, Quadrivalent Hd (Fluzone Hd) 09/01/2021 documented as of this encounter Social History Tobacco Use Types Packs/Day Years Used Date Smoking Tobacco: Former Cigarettes 1 Pipe Cigars Smokeless Tobacco: Former Comments:quit in Alcohol Use Standard Drinks/Week Comments Not Currently 0 (1 standard drink = 0.6 oz pur e alcohol) Sex and Gender Information Value Date Recorded Sex Assigned at Not on file Gender Identity Not on file Sexual Orientation Not on file Job Start Date Occupation Industry Not on file Not on file Not on file documented as of this encounter Plan of Treatment Health Maintenance Due Date Last Done Comments COVID-19 Vaccine (#1) 1940 Pneumococcal Vaccine: 65+ Years (1 - PCV) 1945 Depression Screening 1951 DTaP,Tdap,and Td Vaccines (1 - Tdap) 1958 Zoster Vaccines (1 of 2) 1989 Hepatitis B (1 of 3 - Risk 3-dose series) 1999 Influenza Vaccine (FLU shot) (#1) 2023 09/01/2021 GFR 02/13/2024 08/15/2023, 03/2023, 06/19/2023, Additional history exists Albumin/Creatinine Ratio 08/15/2024 08/15/2023, 05/2023 CKD HGB USE SMARTSET 88843 08/15/202408/15, 06/19/2023, 05/02/2023, Additional history exists CKD PHOS USE SMARTSET 16740 08/15/202408/01, 08/06/2018, 08/13/2013 AAA Monitoring 08/21/2024 08/21/2023, 08/0 12/2021, 01/27/2017, Additional history exists GARDASIL-HPV IMMUNIZATION SERIES Aged Out No longer eligible based on patient's age to complete this topic MENINGOCOCCAL (MENACTRA/MENVEO) Aged Out No longer eligible based on patient's age to complete this topic documented as of this encounter Medical Devices Not on filedocumented as of this encounter Care Teams Cutting Inspector Relationship Specialty Start Date End Date Aura Jasso MD [address] [place], [place] [address] [id number] PCP - General 01/16/01 documented as of this encounter
--- OUTSIDE RECORDS SUMMARY | 2024-01-02 20:45 | External Medical Summary ---
Author Name Unknown Address Unknown Organization [id number]:LABORATORY [facility] [place] [address] [facility] [address] Laboratory Report Ordering Provider Test Date Status JULIO C RODRIGUES 08/15/2023 12:53:22 Final Observation Date Value Abnormality Reference (Units ) Status Uric Acid 08/15/2023 12:53:22 7.3 Above high normal 3. 4-7.0 (mg/dL) Final Performing Location LABORATORY [facility] [place] [address] [place] [address]
--- OUTSIDE RECORDS SUMMARY | 2024-01-02 20:45 | External Medical Summary ---
Author Name Unknown Address Unknown Organization [id number]:LABORATORY [facility] - [address] [facility] [address] Laboratory Report Ordering Provider Test Date Status PEG RODRIGUESBENNETTSAMANTHA 08/15/2023 12:53:22 Final Observation Date Value Abnormality Reference (Units ) Status HbA1C 08/15/2023 12:53:22 5.8 Above high normal 4. 0-5.6 (%) Final The use of HbA1c to monitor glycemic status is based on normal hemoglobin and HbA composition. This test should not be used in patients with abnormal hemoglobin that affects the half life of the red blood cell or the in vivo glycation rates. Glucose, estimated average 08/15/2023 12:53:22 120 <126 (mg/dL) Final Performing Location LABORATORY [facility] - [address] [facility] [address]
--- OUTSIDE RECORDS SUMMARY | 2024-01-02 20:45 | External Medical Summary ---
Author Name Unknown Address Unknown Organization [id number]:LABORATORY [facility] - [address] [place] [address] Laboratory Report Ordering Provider Test Date Status JULIO C RODRIGUES 08/15/2023 12:53:22 Final Observation Date Value Abnormality Reference (Units ) Status Vitamin B12 08/15/2023 12:53:22 [phone] (pg/mL) Final Performing Location LAB[facility]ATORY [facility] - [address] [place] [address]
--- OUTSIDE RECORDS SUMMARY | 2024-01-02 20:45 | External Medical Summary | Summary of Care ---
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) Allergies Active Allergy Reactions Severity Noted Date [...] Pipe Cigars Smokeless Tobacco: Former Comments:quit in 1969's Alcohol Use Standard Drinks/Week Comments Not Currently 0 (1 standard drink = 0.6 oz pur e alcohol) Sex Assigned at Date Recorded Not on file Job Start Date Occupation Industry Not on file Not on file Not on file documented as of this encounter Plan of Treatment Pending Results Name Type Priority Associated Diagnoses Date /Time HEPATITIS B SURFACE ANTIGEN Lab Routine 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 Kidney disease, chronic, stage IV (GFR 15-29 ml/min) (HCC) 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) 08/15/2023 12:53 PM EDT Scheduled Orders Name Type Priority Associated Diagnoses Orde r Schedule HEPATITIS B SURFACE ANTIGEN Lab Routine 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 Kidney disease, chronic, stage IV (GFR 15-29 ml/min) (HCC) 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) Expected: 08/16/2023, Expires: 08/16/2024 Health Maintenance Due Date Last Done Comments COVID-19 Vaccine (#1) 1940 Pneumococcal Vaccine: 65+ Years (1 - PCV) 1945 Depression Screening 1951 DTaP,Tdap,and Td Vaccines (1 - Tdap) 1958 Zoster Vaccines (1 of 2) 1958 AAA Monitoring 07/01/2023 07/01/2022, 01/02, 06/06/2014, Additional history exists Influenza Vaccine (FLU shot) (#1) 2023 09/01/2021 GFR 02/13/2024 08/15/2023, 09/0 03/2023, 06/19/2023, Additional history exists Albumin/Creatinine Ratio 08/15/2024 08/15/2023, 05/2023 CKD HGB USE SMARTSET 53409 08/15/202408/15, 06/19/2023, 05/02/2023, Additional history exists CKD PHOS USE SMARTSET 81702 08/15/202408/01, 08/06/2018, 08/13/2013 GARDASIL-HPV IMMUNIZATION SERIES Aged [...] Not on filedocumented as of this encounter Visit Diagnoses Diagnosis 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
--- OUTSIDE RECORDS SUMMARY | 2024-01-02 20:45 | External Medical Summary | Summary of Care ---
Author Name Unknown Organization [facility] Address [address] [address] Phone [phone] Care Team Providers Care Recreation Therapy Director Name Role Phone Aura Jasso MD Primary Care Provider [phone] Encounter Details Date Type Department Care Team (Late st Contact Info) Description 05/14/2023 Population Health External Data Unspecified Department Allergies [...] 08/15/2024 08/15/2023, 05/2023 CKD HGB USE SMARTSET 41298 08/15/202408/15, 06/19/2023, 05/02/2023, Additional history exists CKD PHOS USE SMARTSET 29997 08/15/202408/01, 08/06/2018, 08/13/2013 AAA Monitoring 08/21/2024 08/21/2023, 08/0 12/2021, 01/27/2017, Additional history exists GARDASIL-HPV IMMUNIZATION SERIES Aged Out No longer eligible based on patient's age to complete this topic MENINGOCOCCAL (MENACTRA/MENVEO) Aged Out No longer eligible based on patient's age to complete this topic documented as of this encounter Medical Devices Not on filedocumented as of this encounter Care Teams Recreation Therapy Director Relationship Specialty Start Date End Date Aura Jasso MD [address] [place], [place] [address] [id number] PCP - General 01/16/01 documented as of this encounter
--- OUTSIDE RECORDS SUMMARY | 2024-01-02 20:45 | External Medical Summary ---
Author Name Unknown Address Unknown Organization K01:LABORATORY [facility] - [address] [place] [address] Laboratory Report Ordering Provider Test Date Status JULIO C RODRIGUES 08/15/2023 12:53:22 Final Observation Date Value Abnormality Reference (Units ) Status Ferritin 08/15/2023 12:53:22 68 30-400 (ng /mL) Final Performing Location LAB[facility]ATORY [facility] - [address] [place] [address]
--- OUTSIDE RECORDS SUMMARY | 2024-01-02 20:45 | External Medical Summary ---
Author Name Unknown Address Unknown Organization K01:LABORATORY [facility] [place] - [address] [place] [address] Laboratory Report Ordering Provider Test Date Status RAVIPEGGARRETT 08/15/2023 12:53:22 Final Observation Date Value Abnormality Reference (Units) Status Protein, Urine 08/15/2023 12:53:22 30 (mg/dL) Final Immunofixation for Urine Narrative 08/15/2023 12:53:22 No monoclonal free light chains present (Bence Enrique protein), in a background of glomerular proteinuria. Final Performing Location LABORATORY [facility] [place] - [address] [place] [address]
--- OUTSIDE RECORDS SUMMARY | 2024-01-02 20:45 | External Medical Summary ---
Author Name Unknown Address Unknown Organization K01:LAB[facility]ATORY [facility] - [address] [place] [address] Laboratory Report Ordering Provider Test Date Status JULIO C RODRIGUES 08/15/2023 12:53:22 Final Observation Date Value Abnormality Reference (Units ) Status Phosphate 08/15/2023 12:53:22 3.7 2.5-4.8 (m g/dL) Final Performing Location LAB[facility] - [address] [facility] [address]
--- OUTSIDE RECORDS SUMMARY | 2024-01-02 20:45 | External Medical Summary ---
Author Name Unknown Address Unknown Organization K01:LAB[facility]ATORY [facility] - [address] [place] [address] Laboratory Report Ordering Provider Test Date Status JULIO C RODRIGUES 08/15/2023 12:53:22 Final Observation Date Value Abnormality Reference (Units ) Status Transferrin 08/15/2023 12:53:22 189 Below low normal 2 00-360 (mg/dL) Final Performing Location LABORATORY [facility] - [address] [place] [address]
--- OUTSIDE RECORDS SUMMARY | 2024-01-02 20:45 | External Medical Summary ---
Author Name Unknown Address Unknown Organization K01:LABORATORY [facility] - [address] [place] [address] Laboratory Report Ordering Provider Test Date Status JULIO C RODRIGUES 08/15/2023 12:53:22 Final Observation Date Value Abnormality Reference (Units ) Status CK 08/15/2023 12:53:22 71 39-308 (U/ L) Final Performing Location LABORATORY [facility] - [address] [place] [address]
--- OUTSIDE RECORDS SUMMARY | 2024-01-02 20:45 | External Medical Summary ---
Author Name Unknown Address Unknown Organization K01:[place]ORY [facility] [place] [address] [facility] [address] Laboratory Report Ordering Provider Test Date Status JULIO C RODRIGUES 08/15/2023 12:53:22 Final Observation Date Value Abnormality Reference (Units ) Status TSH 08/15/2023 12:53:22 2.37 0.27-4.20 (uIU/mL) Final Performing Location LAB[facility]ATORY [facility] - [address] [facility] [address]
--- OUTSIDE RECORDS SUMMARY | 2024-01-02 20:45 | External Medical Summary ---
Author Name Unknown Address Unknown Organization K01:LABORATORY [facility] [place] - [address] [place] [address] Laboratory Report Ordering Provider Test Date Status PEG RODRIGUESBENNETTSAMANTHA 08/15/2023 12:53:22 Final Deficient: <20 ng/mL
Ins ufficient: 20-29 ng/mL
Recommended/Optimum:30-50 ng/mL

Vitamin D intoxication is rare. If suspicious of Vitamin D toxicity, evaluation of serum Calcium and PTH is recommended. Observation Date Value Abnormality Reference (Units ) Status 25-OH Vitamin D total 08/15/2023 12:53:22 68 >19 (ng/mL) Final Performing Location LABORATORY [facility] [place] - [address] [place] [address]
--- OUTSIDE RECORDS SUMMARY | 2024-01-02 20:45 | External Medical Summary ---
Author Name Unknown Address Unknown Organization K01:LABORATORY [place] - [address] [place] [address] Laboratory Report Ordering Provider Test Date Status JULIO C RODRIGUES 08/15/2023 12:53:22 Final Observation Date Value Abnormality Reference (Units ) Status Sodium, Urine 08/15/2023 12:53:22 112 (mmol/ L) Final Performing Location LABORATORY C - [address] [place] [address]
--- OUTSIDE RECORDS SUMMARY | 2024-01-02 20:45 | External Medical Summary ---
Author Name Unknown Address Unknown Organization K01:[place] [facility] [place] [address] [facility] [address] Laboratory Report Ordering Provider Test Date Status JULIO C RODRIGUES 08/15/2023 12:53:22 Final Observation Date Value Abnormality Reference (Units ) Status WBC, Total 08/15/2023 12:53:22 6.07 4.00-10.80 (K/uL) Final RBC 08/15/2023 12:53:22 3.33 4.50-5.25 (M/uL) Final Hemoglobin 08/15/2023 12:53:22 10.9 Below low normal 14.0-16.8 (g/dL) Final HCT 08/15/2023 12:53:22 34.3 Below low normal 40.0-48.4 (%) Final MCV 08/15/2023 12:53:22 103.0 82.0-99.5 (fL) Final MCH 08/15/2023 12:53:22 32.7 27.0-34.0 (pg) Final MCHC 08/15/2023 12:53:22 31.8 32.0-36.0 (g/dL) Final RDW 08/15/2023 12:53:22 13.4 11.5-15.5 (%) Final Platelets 08/15/2023 12:53:22 202 140-400 (K/uL) Final MPV 08/15/2023 12:53:22 10.9 6.6-11.1 (fL) Final Nucleated erythrocytes/100 leukocytes [Ratio] in Blood by Automated count 08/15/2023 12:53:22 0 <=0 (/100 WBCs) Final Performing Location [facility] [place] [address] [facility] [address]
--- OUTSIDE RECORDS SUMMARY | 2024-01-02 20:45 | External Medical Summary ---
Author Name Unknown Address Unknown Organization K01:[place]ORY [facility] [place] [address] [place] [address] Laboratory Report Ordering Provider Test Date Status JULIO C RODRIGUES 08/15/2023 12:53:22 Final Observation Date Value Abnormality Reference (Units ) Status Reagin Ab [Presence] in Serum by RPR 08/15/2023 12:53:22 Nonreactive Nonreactive Final Performing Location LABORATORY [facility] [place] [address] [place] [address]
--- OUTSIDE RECORDS SUMMARY | 2024-01-02 20:45 | External Medical Summary ---
Author Name Unknown Address Unknown Organization K01:LABORATORY [facility] [place] - [address] [facility] [place] [address] Laboratory Report Ordering Provider Test Date Status RAVIJULIO C 08/15/2023 12:55:55 Final Observation Date Value Abnormality Reference (Units) Status Protein, Urine 08/15/2023 12:55:55 32 (mg/dL) Final Protein Fractions [Interpretation] in Urine by Electrophoresis Narrative 08/15/2023 12:55:55 Glomerular pattern, no paraprotein detected. Final Albumin, Urine 08/15/2023 12:55:55 15.1 (mg/dL) Final Globulin [Mass/volume] in Urine by Electrophoresis 08/15/2023 12:55:55 16.9 (mg/dL) Final Performing Location LABORATORY [facility] [place] - [address] [facility] [address]
--- OUTSIDE RECORDS SUMMARY | 2024-01-02 20:45 | External Medical Summary ---
Author Name Unknown Address Unknown Organization K01:LABORATORY [facility] [place] - [address] [place] [address] [place] [address] Laboratory Report Ordering Provider Test Date Status JULIO C RODRIGUES 08/15/2023 12:53:22 Final Observation Date Value Abnormality Reference (Units ) Status Parathyrin.intact [Mass/volume] in Serum or Plasma 08/15/2023 12:53:22 83 Above high normal 15-65 (pg/mL) Final Performing Location LABORATORY [facility] [place] - [address] [facility] [address]
--- OUTSIDE RECORDS SUMMARY | 2024-01-02 20:45 | External Medical Summary ---
Author Name Unknown Address Unknown Organization : Laboratory Report Ordering Provider Test Date Status JULIO C RODRIGUES 08/15/2023 12:53:22 Final Observation Date Value Abnormality Reference (Units ) Status Hep B E Ag 08/15/2023 12:53:22 Nonreactive Final Reference range: Nonreactive
For additional information, please refer to
[email or web address]
(This link is being provided for informational/
educational purposes only.)

Test Performed at:
[facility]
[address]
[place] [address]
Shailesh Grier M.D., Ph.D.,Director of Laboratories Performing Location
--- OUTSIDE RECORDS SUMMARY | 2024-01-02 20:45 | External Medical Summary ---
Author Name Unknown Address Unknown Organization : Laboratory Report Ordering Provider Test Date Status PEG RODRIGUESGARRETT 08/15/2023 12:53:22 Final Observation Date Value Abnormality Reference (Units ) Status Mycobacterium tuberculosis stimulated gamma interferon [Interpretation] in Blood Qualitative 08/15/2023 12:53:22 NEGATIVE NEGATIVE Final Negative test result. M. tub erculosis complex
infection unlikely. Gamma interferon background [Units/volume] in Blood by Immunoassay 08/15/2023 12:53:22 0.01 (IU/mL) Final Mitogen stimulated gamma int erferon [Units/volume] corrected for background in Blood 08/15/2023 12:53:22 9.23 (IU/mL) Final Mycobacterium tuberculosis s timulated gamma interferon release by CD4+ T-cells [Units/volume] corrected for background in Blood 08/15/2023 12:53:22 0.00 (IU/mL) Final Mycobacterium tuberculosis s timulated gamma interferon release by CD4+ and CD8+ T-cells [Units/volume] corrected for background in Blood 08/15/2023 12:53:22 0.01 (IU/mL) Final The Nil tube value reflects the background interferon
gamma immune response of the patient's blood sample.
This value has been subtracted from the patient's
displayed TB and Mitogen results.
Lower than expected results with the Mitogen tube
prevent false-negative Quantiferon readings by detect-
ing a patient with a potential immune suppressive
condition and/or suboptimal pre-analytical specimen
handling.
The TB1 Antigen tube is coated with the M.
tuberculosis-specific antigens designed to elicit
responses from TB antigen primed CD4+ helper
T-lymphocytes.
The TB2 Antigen tube is coated with the M.
tuberculosis-specific antigens designed to elicit
responses from TB antigen primed CD4+ helper and CD8+
cytotoxic T-lymphocytes.
For additional information, please refer to
http://education.[employer]ITbills/faq/BJT843
(This link is being provided for information/
educational purposes only.)

Test Performed at:
[facility]
[address]
[place] [address]
Shailesh Grier M.D., Ph.D.,Director of Laboratories Performing Location
--- OUTSIDE RECORDS SUMMARY | 2024-01-02 20:45 | External Medical Summary ---
Author Name Unknown Address Unknown Organization K01:[facility] [address] [place] [address] Laboratory Report Ordering Provider Test Date Status JULIO C RODRIGUES 08/15/2023 12:53:22 Final Observation Date Value Abnormality Reference (Units ) Status Magnesium 08/15/2023 12:53:22 2.4 1.5-2.6 (m g/dL) Final Performing Location [facility] - [address] [place] [address]
--- OUTSIDE RECORDS SUMMARY | 2024-01-02 20:46 | External Medical Summary | Summary of Care ---
Author Name Unknown Organization [facility] Address [address] [address] Phone [phone] Care Team Providers Care Rig Builder Name Role Phone Aura Jasso MD Primary Care Provider [phone] Reason for Visit * Reason Comments Outpatient Testing Encounter Details Date Type Department Care Team Description 08/05/2023 Laboratory Laboratory [address] [place] [id number] [facility] [address] [place] [id number] HTN, goal below 130/80; HTN, goal below 140/90; Kidney disease, chronic, stage IV (GFR 15-29 ml/min) ([facility]); DM type 2, not at goal ([facility]) Allergies Active Allergy Reactions Severity Noted Date Comments Lisinopril Cough Medium 05/25/2023 Penicillin G Rash 04/21/2012 documented as of this encounter (statuses as of 08/05/2023) Medications Medication Sig Dispensed Refills Start Date [...] as of this encounter (statuses as of 08/05/2023) Active Problems Problem Noted Date Chronic kidney disease, stage 3b 023 Overview: Per CKD protocol AAA (abdominal aortic aneurysm) 12/28/19 16 Overview: 3.8 cm 05/12/14 Malignant neoplasm of upper lobe, bronch us or lung 04/21/2012 documented as of this encounter (statuses as of 08/05/2023) Immunizations Name Administration Dates Next Due Seasonal Influenza, Quadrivalent Hd (Fluzone Hd) 09/01/2021 documented as of this encounter Social History Tobacco Use Types Packs/Day Years Used Date Smoking Tobacco: Former Cigarettes 1 Pipe Cigars Smokeless Tobacco: Former Comments:quit in 1970's Alcohol Use Standard Drinks/Week Comments Not Currently 0 (1 standard drink = 0.6 oz pur e alcohol) Sex Assigned at Date Recorded Not on file Job Start Date Occupation Industry Not on file Not on file Not on file documented as of this encounter Plan of Treatment Pending Results Name Type Priority Associated Diagnoses Date /Time COMPREHENSIVE METABOLIC PANEL Lab Routine HTN, goal below 140/90 Kidney disease, chronic, stage IV (GFR 15-29 ml/min) (HCC) DM type 2, not at goal (HCC) 08/05/2023 9:44 AM EDT HEMOGLOBIN A1C Lab Routine HTN, goal below 140/90 Kidney disease, chronic, stage IV (GFR 15-29 ml/min) (HCC) DM type 2, not at goal (HCC) 08/05/2023 9:44 AM EDT Health Maintenance Due Date Last Done Comments COVID-19 Vaccine (#1) 1940 Depression Screening, Annual for Pts 12 and Over 1951 DTaP,Tdap,and Td Vaccines (1 - Tdap) 1958 Zoster Vaccines (1 of 2) 1989 Pneumococcal Vaccine: 65+ Years (1 - PCV) 02/10/2004 CKD PHOS USE SMARTSET 29607 08/06/2019 08/06/2018, 0 08/13/2013 AAA Monitoring 07/01/2023 07/01/2022, 01/02, 06/06/2014, Additional history exists Influenza Vaccine (FLU shot) (#1) 2023 09/01/2021 GFR 12/20/2023 06/19/2023, 05/31, 05/13/2023, Additional history exists Albumin/Creatinine Ratio 05/06/2024 05/06/2023 CKD HGB USE SMARTSET 62247 06/19/202406/19, 05/02/2023, 04/02/2023, Additional history exists GARDASIL-HPV [...] as of this encounter Visit Diagnoses Diagnosis HTN, goal below 130/80 Unspecified essential hypertension HTN, goal below 140/90 Unspecified essential hypertension Kidney disease, chronic, stage IV (GFR 15-29 ml/min) (HCC) Chronic kidney disease, Stage IV (severe) DM type 2, not at goal (HCC) Type II or unspecified type diabetes mellitus without mention of complication, not stated as uncontrolled documented in this encounter Care Teams Rig Builder Relationship Specialty Start Date End Date Aura Jasso MD [address] [place] [address] [place] [id number] PCP - General 01/16/01 documented as of this encounter
--- OUTSIDE RECORDS SUMMARY | 2024-01-02 20:46 | External Medical Summary ---
Author Name Unknown Address Unknown Organization K01:[facility] - [address] [place] [address] Laboratory Report Ordering Provider Test Date Status JULIO C RODRIGUES 08/15/2023 12:53:22 Final Observation Date Value Abnormality Reference (Units ) Status Hep B Core IgM 08/15/2023 12:53:22 Negative Negat odalys Final Performing Location [facility] - [address] [place] [address]
--- OUTSIDE RECORDS SUMMARY | 2024-01-02 20:46 | External Medical Summary ---
Author Name Unknown Address Unknown Organization K01:[facility] [place] [facility] [address] [place] [address] Laboratory Report Ordering Provider Test Date Status JULIO C RODRIGUES 08/15/2023 12:53:22 Final Normal: <30 mg/g creatinine< br/>High: 30-300 mg/g creatinine
Very High: >300 mg/g creatinine
Nephrotic: >2200 mg/g creatinine Observation Date Value Abnormality Reference (Units ) Status Albumin, Urine 08/15/2023 12:53:22 10.23 (mg/dL) Final Creatinine, Urine 08/15/2023 12:53:22 59 (mg/dL) Final Albumin/Creatinine [Mass Ratio] in Urine 08/15/2023 12:53:22 173 Above high normal <30 (mg/g Creat) Final Performing Location [facility] [place] - [address] [place] [address]
--- OUTSIDE RECORDS SUMMARY | 2024-01-02 20:46 | External Medical Summary | Summary of Care ---
Author Name Unknown Organization [facility] Address [address] [facility] [address] Phone [phone] Care Team Providers Care Ux Design Manager Name Role Phone Aura Jasso MD Primary Care Provider [phone] Reason for Visit * Reason Comments Outpatient Testing Encounter Details Date Type Department Care Team Description 08/05/2023 Laboratory Laboratory [address] [place] [phone] [facility] [address] [place] [id number] HTN, goal below 130/80; HTN, goal below 140/90; Kidney disease, chronic, stage IV (GFR 15-29 ml/min) ([facility]); DM type 2, not at goal ([facility]) Allergies Active Allergy Reactions Severity Noted Date [...] - PCV) 02/10/2004 CKD PHOS USE SMARTSET 10697 08/06/2019 08/06/2018, 0 08/13/2013 AAA Monitoring 07/01/2023 07/01/2022, 01/02, 06/06/2014, Additional history exists Influenza Vaccine (FLU shot) (#1) 2023 09/01/2021 GFR 12/20/2023 06/19/2023, 05/31, 05/13/2023, Additional history exists Albumin/Creatinine Ratio 05/06/2024 05/06/2023 CKD HGB USE SMARTSET 47053 06/19/202406/19, 05/02/2023, 04/02/2023, Additional history exists GARDASIL-HPV [...] uncontrolled documented in this encounter Care Teams Ux Design Manager Relationship Specialty Start Date End Date Aura Jasso MD [address] [place] [address] [place] [id number] PCP - General 01/16/01 documented as of this encounter
--- OUTSIDE RECORDS SUMMARY | 2024-01-02 20:46 | External Medical Summary ---
Author Name Unknown Address Unknown Organization K01:[facility] - [address] [facility] [address] Laboratory Report Ordering Provider Test Date Status KWAN BLANCA 08/05/2023 09:44:04 Final Observation Date Value Abnormality Reference (Units ) Status HbA1C 08/05/2023 09:44:04 6.0 Above high normal 4. 0-5.6 (%) Final The use of HbA1c to monitor glycemic status is based on normal hemoglobin and HbA composition. This test should not be used in patients with abnormal hemoglobin that affects the half life of the red blood cell or the in vivo glycation rates. Glucose, estimated average 08/05/2023 09:44:04 126 Above high normal <126 (mg/dL) Ari skelton Performing Location LAB[facility]ATORY [facility] - [address] [facility] [address]
--- OUTSIDE RECORDS SUMMARY | 2024-01-02 20:46 | External Medical Summary ---
Author Name Unknown Address Unknown Organization K01:[facility] [place] [address] [place] [address] Laboratory Report Ordering Provider Test Date Status KWAN BLANCA 08/05/2023 09:44:04 Final Observation Date Value Abnormality Reference (Units ) Status BUN 08/05/2023 09:44:04 54 Above high normal 6-20 (mg/dL) Final Creatinine 08/05/2023 09:44:04 3.1 Above high normal 0.6-1.2 (mg/dL) Final Glomerular filtration rate/1.73 sq M.predicted [Volume Rate/Area] in Serum, Plasma or Blood by Creatinine-based formula (CKD-EPI) 08/05/2023 09:44:04 19 Below low normal >=60 (mL/min) Final eGFR is calculated based on the CKD-EPI 2020 equation SODIUM 08/05/2023 09:44:04 139 135-146 (m mol/L) Final Potassium 08/05/2023 09:44:04 4.4 3.5-5.1 (m mol/L) Final Cl 08/05/2023 09:44:04 105 98-107 (mm ol/L) Final CO2 08/05/2023 09:44:04 22 22-32 (mmo l/L) Final Anion gap 08/05/2023 09:44:04 12 7-15 (mmol /L) Final Glucose 08/05/2023 09:44:04 78 70-120 (mg /dL) Final Albumin 08/05/2023 09:44:04 3.9 3.8-5.0 (g /dL) Final AST (Aspartate aminotransferase) 08/05/2023 09:44:04 13 10-50 (U/L) Final Alk Phos 08/05/2023 09:44:04 66 35-130 (U/ L) Final Bilirubin, Total 08/05/2023 09:44:04 0.3 <=1 .2 (mg/dL) Final Calcium 08/05/2023 09:44:04 9.6 8.4-10.2 ( mg/dL) Final Protein 08/05/2023 09:44:04 6.7 6.0-8.3 (g /dL) Final ALT (Alanine aminotransferase) 08/05/2023 09:44:04 10 10-50 (U/L) Final Performing Location [facility] [place] - [address] [facility] [address]
--- OUTSIDE RECORDS SUMMARY | 2024-01-02 20:46 | External Medical Summary ---
Author Name Unknown Address Unknown Organization K01:[facility] [place] [address] [place] [address] Laboratory Report Ordering Provider Test Date Status PEG RODRIGUESGARRETT 08/15/2023 12:53:22 Final Observation Date Value Abnormality Reference (Units ) Status Iron 08/15/2023 12:53:22 86 45-176 (ug /dL) Final Iron-binding capacity 08/15/2023 12:53:22 256 250-425 (ug/dL) Final Transferrin Sat % 08/15/2023 12:53:22 34 15 -55 (%) Final Performing Location [facility] [place] [address] [place] [address]
[2024-01-02] MEDS: CLOPIDOGREL BISULFATE 75 MG TAB PO SCH (20:58)
[2024-01-02] MEDS: ATORVASTATIN 10 MG TAB PO SCH (20:58)
[2024-01-02] MEDS: FINASTERIDE 5 MG TAB PO SCH (20:59)
[2024-01-02] MEDS: FAMOTIDINE 20 MG TAB PO SCH (20:59)
[2024-01-02] MEDS: METOPROLOL SUCC 50MG EXT REL TAB PO SCH (21:00)
[2024-01-02] MEDS: HEPARIN SOD 5,000 UNIT/0.5 ML VIAL SQ SCH (21:00)
[2024-01-02] MEDS: MONTELUKAST SODIUM 10 MG TABLET PO SCH (21:01)
[2024-01-02] MEDS: SODIUM BICARBONATE 650 MG TAB PO SCH (21:01)
--- NOTE | 2024-01-03 01:20 | Ultrasound Report ---
Exam(s): US VENOUS BILATERAL LOWER EXTREMITIES EXAM: US Duplex Bilateral Lower Extremities Veins CLINICAL HISTORY: Reason for exam: sob, +dimer. TECHNIQUE: Real-time duplex ultrasound scan of the bilateral lower extremity veins integrating B-mode two-dimensional vascular structure, Doppler spectral analysis, color flow Doppler imaging and compression. COMPARISON: No relevant prior studies available. FINDINGS: Right deep veins: Unremarkable. No DVT in the right common femoral, femoral, proximal deep femoral or popliteal veins. The veins demonstrate normal color flow, are normally compressible, with normal phasic flow and/or augmentation response. Left deep veins: Unremarkable. No DVT in the left common femoral, femoral, proximal deep femoral or popliteal veins. The veins demonstrate normal color flow, are normally compressible, with normal phasic flow and/or augmentation response. Soft tissues: No acute findings. No popliteal cyst. IMPRESSION: No evidence of bilateral lower extremity deep venous thrombosis. Electronically signed by: Davide Berger M.D. 01/03/24 01:18 AM
[2024-01-03] MEDS: LABETALOL HCL IV 5 MG/ML 20ML IV PRN (05:16)
[2024-01-03 07:16] LABS: Hematocrit (blood only) 27.4 % (42.0-52.0); Mean Corpuscular Hemoglobin 31.9 pg (25.0-34.0); Mean Corpuscular Hgb Conc 32.8 g/dL (32.0-36.0); Mean Corpuscular Volume 97.2 fL (80.0-100.0); Mean Platelet Volume 10.1 fL (9.4-12.4); Platelet Count 228 K/uL (130-400); RDW Coefficient of Variation 14.3 % (11.5-14.5); RDW Standard Deviation 50.2 fL (36.4-46.3); Red Blood Count 2.82 M/uL (4.70-6.10); White Blood Count 5.78 K/ul (4.8-10.8)
[2024-01-03 07:32] LABS: BUN Creatinine Ratio 16.9 (10-20); Calcium 9.3 mg/dl (8.6-10.3); Creatinine Clr Calc Pharmacy 19.8 ml/min; Est GFR (Non-African American) 21.6 ml/min; Potassium 4.3 mmol/L (3.5-5.1)
[2024-01-03] MEDS ORDERED: hydrALAZINE 10 MG TAB PO SCH (07:45)
[2024-01-03] MEDS: CHOLECALCIFEROL 25 MCG (1000 UNITS) TAB PO SCH (08:45)
[2024-01-03] MEDS: LOSARTAN POTASSIUM 50 MG TAB PO SCH (08:45)
[2024-01-03] MEDS: ISOSORBIDE MONO EXTENDED REL 60 MG TABCR PO SCH (08:45)
--- NOTE | 2024-01-03 08:56 | Nephrology Consultation ---
Date of Consultation January 03, 2024 Assessment & Plan (1) Acute on chronic heart failure with normal ejection fraction: needs diuresis and better BP control >hold further losartan while in house >start lasix 60 mg IV q4h x 3 doses today; reassess in AM tomorrow for further doses >will give potassium 20 mEq bid as well -daily standing weight >f/u cardiology recs (2) CKD (chronic kidney disease) stage 4, GFR 15-29 ml/min: at/near baseline. -daily bmp -hold ARB for now History of Present Illness Reason for Consultation: CELESTE/ CKD , Volume overload, HTN Requesting Physician: Dr Alexis Attending Physician: Kira Alexis MD History of Present Illness 83 y/o M whom I'm asked to see for CELESTE on CKD4 as well as volume overload and HTN was admitted yesterday w/ acute on chronic HFpEF and HTN urgency. PMH includes CKD 4 (follows w/ Dr Willson; baseline creatinine unknown but had been low to mid 2's in ), HFpEF, CAD s/p stent, PVD, s/p AAA repair and carotid endarterectomy, HLD, TIA w/ vertebrobasilar artery syndrome, chronic exertional dyspna after lobectomy 2011 for non small cell lung cancer, prostatic hypertrophy w/ LUTS; concern for early cognitive impairment, gout. [facility] ER visit a few weeks back after a fall w/ R knee injury, ambulatory dysfunction/walker. Earlier this week PT reportedly suspended d/t sbp 200. Takes losartan, metoprolol, imdur for BP as OP. On AM of admission he was standing/ trying to urinate when he had sudden onset of "heart pounding" with associated shortness of breath, nausea, diaphoresis. EMS noted 89% RA and wheezing; gave duoneb, 02. No hypoxia in ER. In the ER he had a L of NS; 20 mg IV lasix, 100 mg losartan, 60 mg imdur, hydralazine 10 mg IV x 1. Currently on losartan 100 mg daily, toprol XL 100 mg, imdur 60 mg daily (his usual OP regimen) to which hydrlazine 25 mg po q8 hrs was added along w/ PRN labetalol 10 mg (has had x 1). when I evaluated him on afternoon rounds he denied dyspnea, f/c, current dizziness or syncope, new/worrisome voiding sx including sense of incomplete void. denied LE edema. rest of 12 system review otherwise negative Allergies Allergy/AdvReac Type Severity Reaction Status Date / Time Penicillins Allergy Intermediate Rash Verified 07/02/23 12:43 Home Medications Medication Instructions Recorded Confirmed Type allopurinol 100 mg tablet 100 mg PO UD 08/24/21 01/02/24 History atorvastatin 10 mg tablet 10 mg PO HS 08/24/21 01/02/24 History cholecalciferol (vitamin D3) 50 50 mcg PO QAM 08/24/21 01/02/24 History mcg (2,000 unit) tablet (Vitamin D3) clopidogrel 75 mg tablet 75 mg PO HS 08/24/21 01/02/24 History isosorbide mononitrate 60 mg 60 mg PO QAM 08/24/21 01/02/24 History tablet,extended release 24 hr azelastine 137 mcg-fluticasone 50 2 spray intranasal DIRECTED PRN 12/14/22 01/02/24 History mcg/spray nasal spray Nasal Congestion revcy-ggerisma-cre-turp-pet 1 ea topical DIRECTED PRN Pain 12/14/22 01/02/24 History topical ointment guaifenesin 600 mg tablet, 600 mg PO Q12H PRN Congestion 12/14/22 01/02/24 History extended release 12 hr (Mucinex) lutein 25 mg-zeaxanthin 5 mg 1 cap PO DAILY 12/14/22 01/02/24 History capsule (Ocuvite Blue Light) dutasteride 0.5 mg capsule 0.5 mg PO HS #90 caps 09/17/23 01/02/24 Rx aspirin 81 mg tablet,delayed 81 mg PO 3XWK 01/02/24 01/02/24 History release famotidine 20 mg tablet 20 mg PO BID 01/02/24 01/02/24 History losartan 100 mg tablet 100 mg PO DAILY 01/02/24 01/02/24 History metoprolol succinate 100 mg 100 mg PO HS 01/02/24 01/02/24 History tablet,extended release 24 hr montelukast 10 mg tablet 10 mg PO HS 01/02/24 01/02/24 History sodium bicarbonate 650 mg tablet 650 mg PO TID 01/02/24 01/02/24 History Patient History Medical History CKD (chronic kidney disease) stage 4, GFR 15-29 ml/min BPH (benign prostatic hyperplasia) Acute kidney injury superimposed on chronic kidney disease COVID-19 History of GI bleed 07/25/22, pt recently admitted to [facility] for gi bleed. pt "unsure of all the details, but know that I was anemic and had a couple pints of blood." Poor historian Hearing deficit bilat CORREA's Stomach ulcer pt "thinks it's gone now" Arthritis GERD (gastroesophageal reflux disease) Hx of cancer of lung Hx of gout Anemia recently admitted to [facility] for this TIA (transient ischemic attack) X 2 "a few years ago was last one" CAD (coronary atherosclerotic disease) "S/P LAD stent" HTN (hypertension) Surgical History History of colonoscopy History of tooth extraction History of tonsillectomy and adenoidectomy H/O heart artery stent X 4 (? DATE-"maybe 5 years ago" "LAST 2 STENTS PLACED AT [facility], OTHER 2 AT [facility]") S/P lobectomy of lung History of left-sided carotid endarterectomy H/O aortic aneurysm repair 2013 AT [facility] Family History Other No family history of adverse response to anesthesia No significant family history Social History Smoking Status: Former smoker Second Hand Exposure: No; Do You Dip or Chew Tobacco: No; Hx Alcohol Use: No Hx Substance Use: No Preferred Language: Mohawk Communication Ability: Effective Trumpet Player Required: No Beliefs That Will Affect Care: None Current Living Situation: Alone Current Living Situation Comment: 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 How many Children do You have: 1 Other Information That Helps Us Care for You: No Feels Safe at Home: Yes Safety Concerns: Feels Safe At This Time Assistive Devices: Cane and Walker Review of Systems 2 Review of Systems: All systems reviewed & are unremarkable except as noted in HPI & below Physical Exam 2 Constitutional: well developed (sitting up in chair on RA w/ sitter) and + thin Eyes: EOM intact bilaterally ENMT: Ears: no external ear abnormality Nose: no external nose abnormality Mouth: + dry oral mucous membranes Neck: no nuchal rigidity Respiratory: normal respiratory effort Auscultation: + diminished lung sounds (markedly) and + crackles (R base) Cardiovascular: Rate/Rhythm: regular rate (HS distant) and regular rhythm no edema Gastrointestinal (Abdomen): Inspection/Auscultation: normal bowel sounds P ercussion/Palpation: abdomen soft; abdomen nontender Musculoskeletal: Extremities: strength 5/5 throughout Skin: no rashes, warm and dry Neurologic: larson, fluent speech, no tremor Psychiatric: Orientation: alert, oriented to person and oriented to place Results & Data Vital Signs (Past 12 Hours) Vital Signs Temp Pulse Pulse Resp BP BP BP 01/03/24 07:36 36.6 C 66 18 175/115 H 01/03/24 05:31 66 166/90 H 01/03/24 05:16 64 183/93 H 01/03/24 04:26 68 16 172/97 H 01/03/24 03:45 188/116 H 01/03/24 03:29 36.5 C 67 18 188/109 H 01/02/24 23:47 36.5 C 64 18 167/91 H 01/02/24 23:00 75 01/02/24 20:56 79 186/83 H Pulse Ox O2 Del Method 01/03/24 07:36 97 Room Air 01/03/24 05:31 01/03/24 05:16 01/03/24 04:26 01/03/24 03:45 01/03/24 03:29 95 Room Air 01/02/24 23:47 97 Room Air 01/02/24 23:00 01/02/24 20:56 Laboratory Results 01/03/24 06:38 01/03/24 06:38 BNP 1215 UA pH 8, 1012; 1+ protein else bland Diagnostic Findings cxr FINDINGS: No pneumothorax. There are trace bilateral pleural effusions. There is right greater than left interstitial/vascular thickening consistent with developing asymmetric pulmonary edema. The heart is mildly enlarged. Postoperative changes again noted within the left hemithorax. No new focal lung consolidations identified. Left basilar linear densities favor scarring. There is a moderate hiatus hernia, unchanged. IMPRESSION: Developing mild asymmetric pulmonary edema with cardiomegaly and trace bilateral pleural effusions. This has progressed in the interval. BLE Dopplers negative Head CT w/o acute process
[2024-01-03] MEDS: hydrALAZINE HCL 25 MG TAB PO SCH (09:20)
[2024-01-03] MEDS: FUROSEMIDE 40 MG/4 ML VIAL IV SCH (09:22)
[2024-01-03] MEDS: POTASSIUM CHLORIDE CRTAB 20 MEQ TABCR PO SCH (09:25)
--- NOTE | 2024-01-03 10:26 | CT Scan Report ---
CT chest diagnostic wo con CT DOSE: 379.93 mGy.cm CLINICAL HISTORY: 83 years-old Male with SOB. Acute shortness of breath. Prior left upper lobectomy. TECHNIQUE: Multiaxial CT images of the chest were performed without contrast. A dose lowering techni que was utilized adhering to the principles of ALARA. COMPARISON: Chest radiograph January 02, 2024, chest CT 08/10/2014. FINDINGS: No thyroid nodule. Borderline enlarged 10 mm precarinal lymph node on image 96 has slightly increased in size from prior and is nonspecific. The heart is upper limits of normal in size. Extens odalys coronary artery calcifications. Atherosclerosis of the thoracic aorta with descending thoracic ao rtic tortuosity. Fusiform aneurysmal dilation of the upper abdominal aorta is partially imaged measur ing up to 4.4 x 5.3 cm, which has increased from the 2014 study. Metallic density focus projects over the posterior left lung base on image 200, which is a chronic fi nding. There are small right greater than left pleural effusions. Moderate pulmonary emphysema with b iapical pleural-parenchymal scarring. Postoperative changes of left hemithorax compatible with prior left upper lobectomy. Bilateral mosaic attenuation with ill-defined ground-glass densities. Mild depe ndent subsegmental bibasilar atelectasis. Scattered low suspicion bilateral solid pulmonary nodules m easuring up to 4 mm appears stable from the 2014 study compatible with benign etiology. There is an i ll-defined 5 mm nodular focus within the right upper lobe posterior segment on image 79, series 4, wh ich is new from prior. Mild intralobular septal thickening. Central airways are patent. Moderate sized hiatal hernia. Cortical thinning of the kidneys. No acute upper abdominal abnormality. Unremarkable soft tissues. Endplate compression deformity without retropulsion at T12 appears chroni c. IMPRESSION: 1. Equivocal mild pulmonary edema with small right greater than left pleural effusions and mild bibas ilar atelectasis. 2. Emphysema with air trapping. 3. There is a new 5 mm solid pulmonary nodule within the right upper lobe with additional stable francisca gn scattered bilateral solid pulmonary nodules measuring up to 4 mm. 4. Aneurysmal dilation of the upper abdominal aorta measures up to 5.3 cm. 5. Prior left upper lobectomy. Please refer to below summary of Fleischner criteria recommendations for follow-up of incidental CT n odules Ayush Moore, Guidelines for management of small pulmonary nodules detected on CT scans: A johanne correa from the Fleischner Society, Radiology 237: [phone].) SOLID NODULES Multiple nodules size: <6 mm * Low risk patients: no routine follow-up * high risk patients: optional CT at 12 months Note: newly detected indeterminate nodule in persons 35 years of age or older. * Low risk patients: minimal or absent history of smoking and/or other known risk factors * high risk patients: history of smoking or of other known risk factors (e.g. first degree relative with lung cancer, or exposure to asbestos, radon, uranium) * if a nodule up to 8 mm is partly solid or is ground glass further follow-up is required after 24 m [address] to exclude possible slow growing adenocarcinoma (REGGIE) ACT 112: Negative or not required by law. Dictated: 01/03/2024 9:26 AM Transcribed: 01/03/2024 10:03 AM Sammy [id number] [facility] Electronically signed by: Andre Pineda M.D. 01/03/2024 10:24 AM
--- NOTE | 2024-01-03 14:12 | Cardiology Consultation ---
Date of Consultation January 03, 2024 Assessment & Plan (1) Hypertensive urgency: (2) Acute heart failure with preserved ejection fraction: (3) Encephalopathy: (4) Aortic stenosis, moderate: (5) Anemia: Plan Patient is an 83-year-old male with known coronary artery and peripheral vascular and carotid artery disease, longstanding hypertension presents with symptoms of shortness of breath and confusion. Marked hypertensive urgency on presentation with chest x-ray findings of pulmonary edema, heart failure with preserved ejection fraction Blood pressures improving with increased medications and diuresis since hospitalization. Echocardiogram ordered and will be reviewed but on preliminary assessment no significant changes from past No signs suggest acute myocardial injury or ischemia Heart failure likely secondary to hypertensive heart disease and hypertensive urgency, underlying kidney disease with diastolic heart failure Appreciate nephrology input on diuretics Oral hydralazine added to medical regimen with blood pressure improving Will continue to follow with patient History of Present Illness Reason for Consultation: Hypertensive urgency, confusion Requesting Physician: Dr. Alexis Attending Physician: Kira Alexis MD History of Present Illness Patient is an 83-year-old male with underlying medical and cardiac issues which include 1. Longstanding chronic ischemic heart disease status post remote coronary interventions LAD and right coronary artery. Last diagnostic cardiac catheterization 2017 demonstrated patent LAD stent with 50% narrowing, chronic right coronary occlusion. 2. Chronic angina pectoris 3. Atherosclerotic vascular disease status post abdominal aortic aneurysm repair, 2013 open surgical, with chronic abdominal aneurysm dilatation proximal to the repair site. 4. Atherosclerotic carotid disease status post left carotid enterectomy, past TIAs on dual antiplatelet therapy with aspirin and clopidogrel 5. Left lower lobe lung resection for malignancy 2013 with chronic obstructive lung disease 6. Recurrent anemia, paraesophageal hiatal hernia 7. CKD stage III-IV 8. Hypertension 9. Hyperlipidemia 10. Calcific aortic valve disease with moderate aortic stenosis Patient presents for symptoms of dyspnea and hypertension. Increased confusion. Patient fair historian only. Family present in the room at time of examination were able to add additional information. Recent increase in difficulties in taking medications with lapse of over a week in late October. Currently is getting 8 and home to help with medication management. But most recently has had symptoms of increasing confusion and dyspnea. Ultimately summoned paramedics due to symptoms of marked dyspnea and heart pounding Chest x-ray with pulmonary edema on presentation. Blood pressure is markedly Patient denies specific chest pain, syncope or near syncope. No recent fevers or infections. No orthopnea per patient no productive cough Historical data per patient limited Allergies Allergy/AdvReac Type Severity Reaction Status Date / Time Penicillins Allergy Intermediate Rash Verified 07/02/23 12:43 Home Medications Medication Instructions Recorded Confirmed Type allopurinol 100 mg tablet 100 mg PO UD 08/24/21 01/02/24 History atorvastatin 10 mg tablet 10 mg PO HS 08/24/21 01/02/24 History cholecalciferol (vitamin D3) 50 50 mcg PO QAM 08/24/21 01/02/24 History mcg (2,000 unit) tablet (Vitamin D3) clopidogrel 75 mg tablet 75 mg PO HS 08/24/21 01/02/24 History isosorbide mononitrate 60 mg 60 mg PO QAM 08/24/21 01/02/24 History tablet,extended release 24 hr azelastine 137 mcg-fluticasone 50 2 spray intranasal DIRECTED PRN 12/14/22 01/02/24 History mcg/spray nasal spray Nasal Congestion hbbbf-nbdltquf-xxl-turp-pet 1 ea topical DIRECTED PRN Pain 12/14/22 01/02/24 History topical ointment guaifenesin 600 mg tablet, 600 mg PO Q12H PRN Congestion 12/14/22 01/02/24 History extended release 12 hr (Mucinex) lutein 25 mg-zeaxanthin 5 mg 1 cap PO DAILY 12/14/22 01/02/24 History capsule (Ocuvite Blue Light) dutasteride 0.5 mg capsule 0.5 mg PO HS #90 caps 09/17/23 01/02/24 Rx aspirin 81 mg tablet,delayed 81 mg PO 3XWK 01/02/24 01/02/24 History release famotidine 20 mg tablet 20 mg PO BID 01/02/24 01/02/24 History losartan 100 mg tablet 100 mg PO DAILY 01/02/24 01/02/24 History metoprolol succinate 100 mg 100 mg PO HS 01/02/24 01/02/24 History tablet,extended release 24 hr montelukast 10 mg tablet 10 mg PO HS 01/02/24 01/02/24 History sodium bicarbonate 650 mg tablet 650 mg PO TID 01/02/24 01/02/24 History Patient History Medical History (Updated 01/03/24 @ 14:26 by Cassius Posey MD) CKD (chronic kidney disease) stage 4, GFR 15-29 ml/min BPH (benign prostatic hyperplasia) Acute kidney injury superimposed on chronic kidney disease COVID-19 History of GI bleed 07/25/22, pt recently admitted to [facility] for gi bleed. pt "unsure of all the details, but know that I was anemic and had a couple pints of blood." Poor historian Hearing deficit bilat CORREA's Stomach ulcer pt "thinks it's gone now" Arthritis GERD (gastroesophageal reflux disease) Hx of cancer of lung Hx of gout Anemia recently admitted to [facility] for this TIA (transient ischemic attack) X 2 "a few years ago was last one" CAD (coronary atherosclerotic disease) "S/P LAD stent" HTN (hypertension) Surgical History History of colonoscopy History of tooth extraction History of tonsillectomy and adenoidectomy H/O heart artery stent X 4 (? DATE-"maybe 5 years ago" "LAST 2 STENTS PLACED AT [facility], OTHER 2 AT [facility]") S/P lobectomy of lung History of left-sided carotid endarterectomy H/O aortic aneurysm repair 2014 AT [facility] Family History Other No family history of adverse response to anesthesia No significant family history Social History Smoking Status: Former smoker Second Hand Exposure: No; Do You Dip or Chew Tobacco: No; Hx Alcohol Use: No Hx Substance Use: No Preferred Language: Yakut Communication Ability: Effective Button Sawyer Required: No Beliefs That Will Affect Care: None Current Living Situation: Alone Current Living Situation Comment: HAS A GRAB SETTER ASSISTS 3X PER WEEK How many Children do You have: 1 Other Information That Helps Us Care for You: No Feels Safe at Home: Yes Safety Concerns: Feels Safe At This Time Assistive Devices: Cane, Glasses and Walker Review of Systems Review of Systems: Unobtainable due to cognitive status Physical Exam Constitutional: well developed; no acute distress Eyes: PERRL, conjunctivae normal, anicteric sclerae Neck: trachea midline, no thyromegaly Respiratory: Auscultation: + diminished lung sounds; no wheezes Cardiovascular: Rate/Rhythm: regular rate and regular rhythm Heart Sounds: normal S1, normal S2 and + murmur (Grade 2 or 6 systolic no diastolic) Vessels: no JVD Extremities: + edema (1+) Gastrointestinal (Abdomen): normal bowel sounds, soft, nontender, no hepatosplenomegaly Results & Data Vital Signs (Past 12 Hours) Vital Signs Temp Pulse Pulse Resp BP BP BP 01/03/24 11:49 36.5 C 68 18 144/74 H 01/03/24 09:38 63 01/03/24 09:00 01/03/24 07:36 36.6 C 66 18 175/115 H 01/03/24 05:31 66 166/90 H 01/03/24 05:16 64 183/93 H 01/03/24 04:26 68 16 172/97 H 01/03/24 03:45 188/116 H 01/03/24 03:29 36.5 C 67 18 188/109 H Pulse Ox O2 Del Method 01/03/24 11:49 98 Room Air 01/03/24 09:38 01/03/24 09:00 Room Air 01/03/24 07:36 97 Room Air 01/03/24 05:31 01/03/24 05:16 01/03/24 04:26 01/03/24 03:45 01/03/24 03:29 95 Room Air Laboratory Results Laboratory Results - last 24 hr 01/02/24 01/03/24 14:39 06:38 WBC 5.78 RBC 2.82 L Hgb 9.0 L Hct 27.4 L MCV 97.2 MCH 31.9 MCHC 32.8 RDW Std Deviation 50.2 H RDW Coeff of Serene 14.3 Plt Count 228 MPV 10.1 Sodium 137 Potassium 4.3 Chloride 106 Carbon Dioxide 23 Anion Gap 8 BUN 44 H Creatinine 2.61 H Est Cr Clr Drug Dosing 19.8 Est GFR ( Amer) 25.0 Est GFR (Non-Af Amer) 21.6 BUN/Creatinine Ratio 16.9 Glucose 96 Calcium 9.3 Phosphorus 4.0 Magnesium 2.0 Troponin I High Sens 18.0 Diagnostic Findings Laboratory Results - last 24 hr 01/02/24 01/03/24 14:39 06:38 WBC 5.78 RBC 2.82 L Hgb 9.0 L Hct 27.4 L MCV 97.2 MCH 31.9 MCHC 32.8 RDW Std Deviation 50.2 H RDW Coeff of Serene 14.3 Plt Count 228 MPV 10.1 Sodium 137 Potassium 4.3 Chloride 106 Carbon Dioxide 23 Anion Gap 8 BUN 44 H Creatinine 2.61 H Est Cr Clr Drug Dosing 19.8 Est GFR ( Amer) 25.0 Est GFR (Non-Af Amer) 21.6 BUN/Creatinine Ratio 16.9 Glucose 96 Calcium 9.3 Phosphorus 4.0 Magnesium 2.0 Troponin I High Sens 18.0 ECG Additional Comments: EKG 01/03/2024 Sinus rhythm with voltage criteria for left ventricular hypertrophy (5) Anemia Anemia type: unspecified type Qualified Code(s): D64.9 - Anemia, unspecified
--- NOTE | 2024-01-03 14:28 | Hospitalist Progress Note ---
Date of Service January 03, 2024 Assessment & Plan (1) Palpitations: (2) SOB (shortness of breath): (3) Chronic diastolic heart failure: (4) Hypertensive urgency: (5) CKD (chronic kidney disease) stage 4, GFR 15-29 ml/min: (6) CAD (coronary atherosclerotic disease): (7) TIA (transient ischemic attack): (8) Hx of cancer of lung: (9) AAA (abdominal aortic aneurysm): (10) GERD (gastroesophageal reflux disease): (11) Hx of gout: (12) BPH (benign prostatic hyperplasia): Plan Mr. Pérez is an 83-year-old male with PMH chronic diastolic heart failure, CAD s/p stent, PVD, history AAA repair history of carotid endarterectomy, HTN, HLD, history of TIA, history of lung cancer s/p surgery, CKD IV, chronic anemia, and others listed below presented to ER on 01/02 with c/o episode of palpitations and SOB. In ER afebrile, BP 219/139, P: 72, 95% on room air. No leukocytosis. Negative [employer] respiratory panel D-dimer: 5700. BNP 1215. Negative troponin x 2 CT head: No acute intracranial abnormality CXR: No pneumothorax. There are trace bilateral pleural effusions. There is right greater than left interstitial/vascular thickening consistent with developing asymmetric pulmonary edema. No new focal lung consolidations identified. Left basilar linear densities favor scarring Long discussion (45 min ) over phone with son, Damian, and daughter in law, regarding patient safety at home. They note they have application in for assisted living, but express deep concern for patient's safety over course of last 2-3 months with subtle cognitive decline involving frequently missed medications and confusion spells, including occasional issues with auditory/visual hallucinations. discussed plan of care from medical standpoint, involving optimizing cardiac/renal status and pt/ot evaluation, all questions answered. #Delirium #Cognitive impairment #Generalized Weakness Family with growing concerns for dementia and inability to care for self at home CT with old scattered infarcts and age related microvascular changes Delirium precautions, fall precautions Avoid benzos PT/OT #Acute on chronic heart failure with preserved EF #Hypertensive Urgency #Acute Dyspnea CXR with pulm edema and cardiomegaly, +pleural effusions Venous Doppler BLE negative for DVT VQ scan ordered on admission ECHO with G1DD, left ventricular hypertropy, EF 55-60% normal wall motion, no phtn -Discontinued losartan 2/2 renal function -Continue metoprolol 100mg qhs -Continue imdur 60mg -Lasix 60mg q4h -Hydralazine 25mg q8h added this am -Potassium supplementation -Continue ASA #Elevated D-Dimer Respiratory status stable, iso AHFpEF, breathing improving, dopplers nega tive--will hold on AC at this [facility] VQ scan ordered on admission, will follow up results #CKD IV Baseline per Nephrology low-mid 2s, 2.61 this am Follows with nephrology, Dr. Booker [facility] Nephrology on consult -Hold Losartan -Starting lasix 60mg q4h IV x 3 doses, reassess in am -Potassium supplementation -At baseline per nephrology -Chris levy and disha ordered #CAD s/p stent #Ischemic cardiomyopathy Continue aspirin, Plavix, atorvastatin, isosorbide, metoprolol succinate Follows with cardiology [facility] #Prior post abdominal aortic aneurysm repair, 2013 open surgical, with chronic abdominal aneurysm dilatation proximal to the repair site. #left carotid enterectomy #Prior TIA CT Aneurysmal dilation of the upper abdominal aorta measures up to 5.3 cm. Continue aspirin, atorvastatin, Plavix #Prior lung cancer S/p [place] lobectomy 2011 #COPD, emphysema #Pulmonary nodules - CT with 5 mm solid pulmonary nodule within the right upper lobe with additional stable benign scattered bilateral solid pulmonary nodules measuring up to 4 mm. #Paraesophageal Hiatal Hernia Continue famotidine #gout Continue allopurinol #BPH Continue dutasteride DVT Prophylaxis Heparin SQ Full Code Admission and Anticipated Discharge Date Admission Date: January 02, 2024 Subjective Patient states he feels well and eager to get home--notes he does live home alone, but he has new "help" When asked what year it is, he stated "1973" then "2073" Denies chest pain, palpitations, further SOB Physical Exam Constitutional: thin gentleman, conversational pleasant, subtle delirium noted with orientation questions Respiratory: scattered crackles, diminished bibasilar Cardiovascular: ?BETTY RRR no lower extremity edema Gastrointestinal (Abdomen): normal bowel sounds, soft, nontender, no hepatosplenomegaly Musculoskeletal: moving all extremities equally Neurologic: PERRL, EOMI, accommodation nl, no face palsy, no dysarthria Results & Data Results & Data Vital Signs (Past 12 Hours) Vital Signs Temp Pulse Pulse Resp BP BP BP 01/03/24 11:49 36.5 C 68 18 144/74 H 01/03/24 09:38 63 01/03/24 09:00 01/03/24 07:36 36.6 C 66 18 175/115 H 01/03/24 05:31 66 166/90 H 01/03/24 05:16 64 183/93 H 01/03/24 04:26 68 16 172/97 H 01/03/24 03:45 188/116 H 01/03/24 03:29 36.5 C 67 18 188/109 H Pulse Ox O2 Del Method 01/03/24 11:49 98 Room Air 01/03/24 09:38 01/03/24 09:00 Room Air 01/03/24 07:36 97 Room Air 01/03/24 05:31 01/03/24 05:16 01/03/24 04:26 01/03/24 03:45 01/03/24 03:29 95 Room Air Laboratory Results Short CBC 01/03/24 Range/Units 06:38 WBC 5.78 (4.8-10.8) K/ul Hgb 9.0 L (14.0-18.0) g/dl Hct 27.4 L (42.0-52.0) % Plt Count 228 (130-400) K/uL BMP 01/03/24 06:38 Sodium 137 Potassium 4.3 Chloride 106 Carbon Dioxide 23 BUN 44 H Creatinine 2.61 H Glucose 96 Calcium 9.3 Medications Administered Home Medications Medication Instructions Recorded Confirmed Last Taken allopurinol 100 mg tablet 100 mg PO 08/24/21 01/02/24 01/15/23 atorvastatin 10 mg tablet 10 mg PO 08/24/21 01/02/24 01/16/23 cholecalciferol (vitamin D3) 50 50 mcg PO [facility] 08/24/21 01/02/24 01/16/23 mcg (2,000 unit) tablet (Vitamin D3) clopidogrel 75 mg tablet 75 mg PO 08/24/21 01/02/24 01/16/23 isosorbide mononitrate 60 mg 60 mg PO [facility] 08/24/21 01/02/24 01/16/23 tablet,extended release 24 hr azelastine 137 mcg-fluticasone 50 2 spray intranasal DIRECTED PRN 12/14/22 01/02/24 Unknown mcg/spray nasal spray Nasal Congestion lummo-mcvywvhl-uzw-turp-pet 1 ea topical DIRECTED PRN Pain 12/14/22 01/02/24 Unknown topical ointment guaifenesin 600 mg tablet, 600 mg PO Q12H PRN Congestion 12/14/22 01/02/24 Unknown extended release 12 hr (Mucinex) lutein 25 mg-zeaxanthin 5 mg 1 cap PO DAILY 12/14/22 01/02/24 01/16/23 capsule (Ocuvite Blue Light) dutasteride 0.5 mg capsule 0.5 mg PO HS #90 caps 09/17/23 01/02/24 Unknown aspirin 81 mg tablet,delayed 81 mg PO 3XWK 01/02/24 01/02/24 Unknown release famotidine 20 mg tablet 20 mg PO BID 01/02/24 01/02/24 Unknown losartan 100 mg tablet 100 mg PO DAILY 01/02/24 01/02/24 Unknown metoprolol succinate 100 mg 100 mg PO HS 01/02/24 01/02/24 Unknown tablet,extended release 24 hr montelukast 10 mg tablet 10 mg PO HS 01/02/24 01/02/24 Unknown sodium bicarbonate 650 mg tablet 650 mg PO TID 01/02/24 01/02/24 Unknown Active Medications Generic Name Dose Route Start Last Admin Trade Name Freq PRN Reason Stop Dose Admin Allopurinol 100 mg 01/02/24 17:00 01/02/24 18:11 Allopurinol 100 Mg Tab PO 02/01/24 16:59 100 mg [id number] ALEX Administration Aspirin 81 mg 01/02/24 17:00 01/02/24 18:11 Aspirin 81 Mg Ectab PO 02/01/24 16:59 81 mg MoWeFr ALEX Administration Atorvastatin Calcium 10 mg 01/02/24 21:00 01/02/24 20:58 Atorvastatin 10 Mg Tab PO 02/01/24 20:59 10 mg HS ALEX Administration Clopidogrel Bisulfate 75 mg 01/02/24 21:00 01/02/24 20:58 Clopidogrel Bisulfate 75 Mg Tab PO 02/01/24 20:59 75 mg HS ALEX Administration Famotidine 20 mg 01/02/24 21:00 01/03/24 08:45 Famotidine 20 Mg Tab PO 02/01/24 20:59 20 mg BID ALEX Administration Finasteride 5 mg 01/02/24 21:00 01/02/24 20:59 Finasteride 5 Mg Tab PO 02/01/24 20:59 5 mg HS ALEX Administration Furosemide 60 mg 01/03/24 09:15 01/03/24 13:00 Furosemide 40 Mg/4 Ml Vial IV 01/03/24 17:16 60 mg Q4H ALEX Administration Heparin Sodium (Porcine) 5,000 units 01/02/24 21:00 01/03/24 08:45 Heparin Sod 5,000 Unit/0.5 Ml Vial SQ 02/01/24 20:59 5,000 units Q12 ALEX Administration Hydralazine HCl 25 mg 01/03/24 07:45 01/03/24 09:20 Hydralazine Hcl 25 Mg Tab PO 02/02/24 07:44 25 mg Q8H ALEX Administration Isosorbide Mononitrate 60 mg 01/03/24 09:00 01/03/24 08:45 Isosorbide [place] Extended Rel 60 Mg Tabcr PO 02/02/24 08:59 60 mg QAM ALEX Administration Labetalol HCl 10 mg 01/03/24 04:48 01/03/24 05:16 Labetalol Hcl Iv 5 Mg/Ml 20ml IV 02/02/24 04:47 10 mg Q4H PRN Administration Hypertension Losartan Potassium 100 mg 01/03/24 09:00 01/03/24 08:45 Losartan Potassium 50 Mg Tab PO 02/02/24 08:59 100 mg DAILY ALEX Administration Metoprolol Succinate 100 mg 01/02/24 21:00 01/02/24 21:00 Metoprolol Succ 50mg Ext Rel Tab PO 02/01/24 20:59 100 mg HS ALEX Administration Montelukast Sodium 10 mg 01/02/24 21:00 01/02/24 21:01 Montelukast Sodium 10 Mg Tablet PO 02/01/24 20:59 10 mg HS AELX Administration Potassium Chloride 20 meq 01/03/24 09:15 01/03/24 09:25 Potassium Chloride Crtab 20 Meq Tabcr PO 02/02/24 09:14 20 meq BID ALEX Administration Sodium Bicarbonate 650 mg 01/02/24 21:00 02/03/24 14:02 Sodium Bicarbonate 650 Mg Tab PO 02/01/24 20:59 650 mg TID ALEX Administration Vitamin D 50 mcg 01/03/24 09:00 01/03/24 08:45 Cholecalciferol 25 Mcg (1000 Units) Tab PO 02/02/24 08:59 50 mcg QAM ALEX Administration
--- NOTE | 2024-01-03 21:42 | Electrocardiogram Report ---
Test Reason : Blood Pressure : / mmHG Vent. Rate : 070 BPM Atrial Rate : 070 BPM P-R Int : 182 ms QRS Dur : 082 ms QT Int : 414 ms P-R-T Axes : 036 025 036 degrees QTc Int : 447 ms Normal sinus rhythm Minimal voltage criteria for LVH, may be normal variant Borderline ECG When compared with ECG of 16-JAN-2023 23:43, T wave amplitude has increased in Lateral leads Confirmed by Travis Charles ([id number]) on 01/03/2024 9:42:19 PM Referred By: REFERRED SELF Confirmed By:Travis Charles
--- NOTE | 2024-01-04 06:21 | Electrocardiogram Report ---
Test Reason : Blood Pressure : / mmHG Vent. Rate : 065 BPM Atrial Rate : 065 BPM P-R Int : 186 ms QRS Dur : 084 ms QT Int : 456 ms P-R-T Axes : 050 033 021 degrees QTc Int : 474 ms Normal sinus rhythm Voltage criteria for left ventricular hypertrophy Abnormal ECG When compared with ECG of 02-JAN-2024 11:30, No significant change Confirmed by Travis Charles ([id number]) on 01/04/2024 6:21:14 AM Referred By: REFERRED SELF Confirmed By:Travis Charles
[2024-01-04] MEDS: hydrALAZINE HCL 20 MG/ML VIAL IV ONE (08:13)
[2024-01-04 08:19] LABS: Hematocrit (blood only) 34.9 % (42.0-52.0); Hemoglobin 11.4 g/dl (14.0-18.0); Mean Corpuscular Hemoglobin 31.8 pg (25.0-34.0); Mean Corpuscular Hgb Conc 32.7 g/dL (32.0-36.0); Mean Corpuscular Volume 97.2 fL (80.0-100.0); Mean Platelet Volume 9.9 fL (9.4-12.4); Platelet Count 271 K/uL (130-400); RDW Coefficient of Variation 14.6 % (11.5-14.5); Red Blood Count 3.59 M/uL (4.70-6.10); White Blood Count 5.92 K/ul (4.8-10.8)
[2024-01-04 08:33] LABS: BUN Creatinine Ratio 18.2 (10-20); Calcium 10.2 mg/dl (8.6-10.3); Creatinine Clr Calc Pharmacy 15.2 ml/min; Est GFR (African American) 19.2 ml/min; Est GFR (Non-African American) 16.5 ml/min; Magnesium 2.2 mg/dl (1.7-2.4); Phosphorus 4.5 mg/dl (2.5-4.9); Potassium 4.4 mmol/L (3.5-5.1)
[2024-01-04] MEDS: ISOSORBIDE MONO EXTENDED REL 30 MG TABCR PO SCH (08:41)
[2024-01-04] MEDS: hydrALAZINE TAB 50 MG TAB PO SCH (08:41)
--- NOTE | 2024-01-04 12:17 | Hospitalist Progress Note ---
Date of Service January 04, 2024 Assessment & Plan (1) Palpitations: (2) SOB (shortness of breath): (3) Chronic diastolic heart failure: (4) Hypertensive urgency: (5) CKD (chronic kidney disease) stage 4, GFR 15-29 ml/min: (6) CAD (coronary atherosclerotic disease): (7) TIA (transient ischemic attack): (8) Hx of cancer of lung: (9) AAA (abdominal aortic aneurysm): (10) GERD (gastroesophageal reflux disease): (11) Hx of gout: (12) BPH (benign prostatic hyperplasia): Plan Mr. Pérez is an 83-year-old male with PMH chronic diastolic heart failure, CAD s/p stent, PVD, history AAA repair history of carotid endarterectomy, HTN, HLD, history of TIA, history of lung cancer s/p surgery, CKD IV, chronic anemia, and others listed below presented to ER on 01/02 with c/o episode of palpitations and SOB. In ER afebrile, BP 219/139, P: 72, 95% on room air. No leukocytosis. Negative [employer] respiratory panel D-dimer: 5700. BNP 1215. Negative troponin x 2 CT head: No acute intracranial abnormality CXR: No pneumothorax. There are trace bilateral pleural effusions. There is right greater than left interstitial/vascular thickening consistent with developing asymmetric pulmonary edema. No new focal lung consolidations identified. Left basilar linear densities favor scarring Long discussion (45 min ) over phone with son, Damian, and daughter in law, regarding patient safety at home. They note they have application in for assisted living, but express deep concern for patient's safety over course of last 2-3 months with subtle cognitive decline involving frequently missed medications and confusion spells, including occasional issues with auditory/visual hallucinations. discussed plan of care from medical standpoint, involving optimizing cardiac/renal status and pt/ot evaluation, all questions answered. 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 #Generalized Weakness Family with growing concerns for dementia and inability to care for self at home CT on admission 01/02 with old scattered infarcts and age related microvascular changes Delirium precautions, fall precautions Avoid benzos PT/OT CT scan today given worsening delirium Given degree of known vacular disease, will allow for degree of permissive hypertension #Acute on chronic heart failure with preserved EF #Hypertensive Urgency #Acute Dyspnea CXR with pulm edema and cardiomegaly, +pleural effusions Venous Doppler BLE negative for DVT VQ scan ordered on admission ECHO with G1DD, left ventricular hypertropy, EF 55-60% normal wall motion, no phtn -Discontinued losartan 2/2 renal function -Continue metoprolol 100mg qhs -Continue imdur increased to 90mg -Lasix 60mg q4h x3 dose, held this am -Hydralazine 25mg q8h, increased to 50mg q8--now held as worsening mentation with "optimized" BP control -Potassium supplementation -Continue ASA #Elevated D-Dimer Respiratory status stable, iso AHFpEF, breathing improving, dopplers negative--will hold on AC at this tme #CELESTE on CKD IV Baseline per Nephrology low-mid 2s, 2.61 this am Follows with nephrology, Dr. Booker Willson [facility] Nephrology on consult -Hold Losartan -Starting lasix 60mg q4h IV x 3 doses, reassess in am -Holding lasix secondary to worsening renal function -Permissive HTN iso notable vascular disease -Potassium supplementation -Avoid nephrotoxic agents -Daiy bmp and lytes ordered #CAD s/p stent #Ischemic cardiomyopathy Continue aspirin, Plavix, atorvastatin, isosorbide, metoprolol succinate Follows with cardiology [facility] #Prior post abdominal aortic aneurysm repair, 2013 open surgical, with chronic abdominal aneurysm dilatation proximal to the repair site. #left carotid enterectomy #Prior TIA CT Aneurysmal dilation of the upper abdominal aorta measures up to 5.3 cm. Continue aspirin, atorvastatin, Plavix #Prior lung cancer S/p [place] lobectomy 2011 #COPD, emphysema #Pulmonary nodules - CT with 5 mm solid pulmonary nodule within the right upper lobe with additional stable benign scattered bilateral solid pulmonary nodules measuring up to 4 mm. #Paraesophageal Hiatal Hernia Continue famotidine #gout Continue allopurinol #BPH Continue dutasteride DVT Prophylaxis Heparin SQ Full Code Admission and Anticipated Discharge Date Admission Date: January 02, 2024 Subjective NAEO Delirious this morning, not following commands Family at bedside, noting history of delirium however "this is the worst yet" Physical Exam Constitutional: eyes open, talking incoherently moving all limbs not following commands Respiratory: diminished 2/2 effort Cardiovascular: BETTY, trace edema of lower extremities Gastrointestinal (Abdomen): normal bowel sounds, soft, nontender, no hepatosplenomegaly Neurologic: Not following commands, disoriented, no focal deficits, aphasic Results & Data Results & Data Vital Signs (Past 12 Hours) Vital Signs Temp Pulse Pulse Pulse Resp BP Pulse Ox 01/04/24 11:54 86 18 128/86 96 01/04/24 08:00 01/04/24 07:41 36.6 C 64 20 186/96 H 97 01/04/24 07:32 66 01/04/24 07:30 66 01/04/24 03:22 36.5 C 71 18 168/92 H 98 01/04/24 00:33 70 01/04/24 00:28 66 163/96 H O2 Del Method 01/04/24 11:54 Room Air 01/04/24 08:00 Room Air 01/04/24 07:41 Room Air 01/04/24 07:32 01/04/24 07:30 01/04/24 03:22 Room Air 01/04/24 00:33 01/04/24 00:28 Laboratory Results Short CBC 01/04/24 Range/Units 07:52 WBC 5.92 (4.8-10.8) K/ul Hgb 11.4 L (14.0-18.0) g/dl Hct 34.9 L (42.0-52.0) % Plt Count 271 (130-400) K/uL [facility] 01/04/24 07:52 Sodium 136 Potassium 4.4 Chloride 100 Carbon Dioxide 25 BUN 59 H Creatinine 3.25 H D Glucose 102 H Calcium 10.2 Medications Administered Home Medications Medication Instructions Recorded Confirmed Last Taken allopurinol 100 mg tablet 100 mg PO 08/24/21 01/02/24 01/15/23 atorvastatin 10 mg tablet 10 mg PO 08/24/21 01/02/24 01/16/23 cholecalciferol (vitamin D3) 50 50 mcg PO QAM 08/24/21 01/02/24 01/16/23 mcg (2,000 unit) tablet (Vitamin D3) clopidogrel 75 mg tablet 75 mg PO 08/24/21 01/02/24 01/16/23 isosorbide mononitrate 60 mg 60 mg PO [facility] 08/24/21 01/02/24 01/16/23 tablet,extended release 24 hr azelastine 137 mcg-fluticasone 50 2 spray intranasal DIRECTED PRN 12/14/22 01/02/24 Unknown mcg/spray nasal spray Nasal Congestion lbekt-njrnsbxo-kbe-turp-pet 1 ea topical DIRECTED PRN Pain 12/14/22 01/02/24 Unknown topical ointment guaifenesin 600 mg tablet, 600 mg PO Q12H PRN Congestion 12/14/22 01/02/24 Unknown extended release 12 hr (Mucinex) lutein 25 mg-zeaxanthin 5 mg 1 cap PO DAILY 12/14/22 01/02/24 01/16/23 capsule (Ocuvite Blue Light) dutasteride 0.5 mg capsule 0.5 mg PO HS #90 caps 09/17/23 01/02/24 Unknown aspirin 81 mg tablet,delayed 81 mg PO 3XWK 01/02/24 01/02/24 Unknown release famotidine 20 mg tablet 20 mg PO BID 01/02/24 01/02/24 Unknown losartan 100 mg tablet 100 mg PO DAILY 01/02/24 01/02/24 Unknown metoprolol succinate 100 mg 100 mg PO HS 01/02/24 01/02/24 Unknown tablet,extended release 24 hr montelukast 10 mg tablet 10 mg PO HS 01/02/24 01/02/24 Unknown sodium bicarbonate 650 mg tablet 650 mg PO TID 01/02/24 01/02/24 Unknown Active Medications Generic Name Dose Route Start Last Admin Trade Name Freq PRN Reason Stop Dose Admin Allopurinol 100 mg 01/02/24 17:00 01/02/24 18:11 Allopurinol 100 Mg Tab PO 02/01/24 16:59 100 mg [id number] ALEX Administration Aspirin 81 mg 01/02/24 17:00 01/02/24 18:11 Aspirin 81 Mg Ectab PO 02/01/24 16:59 81 mg MoWeFr ALEX Administration Atorvastatin Calcium 10 mg 01/02/24 21:00 01/03/24 20:49 Atorvastatin 10 Mg Tab PO 02/01/24 20:59 10 mg HS ALEX Administration Clopidogrel Bisulfate 75 mg 01/02/24 21:00 01/03/24 20:49 Clopidogrel Bisulfate 75 Mg Tab PO 02/01/24 20:59 75 mg HS ALEX Administration Famotidine 20 mg 01/02/24 21:00 01/04/24 08:09 Famotidine 20 Mg Tab PO 02/01/24 20:59 20 mg BID ALEX Administration Finasteride 5 mg 01/02/24 21:00 01/03/24 20:49 Finasteride 5 Mg Tab PO 02/01/24 20:59 5 mg HS ALEX Administration Heparin Sodium (Porcine) 5,000 units 01/02/24 21:00 01/04/24 08:10 Heparin Sod 5,000 Unit/0.5 Ml Vial SQ 02/01/24 20:59 5,000 units Q12 ALEX Administration Hydralazine HCl 50 mg 01/04/24 08:00 01/04/24 08:41 Hydralazine Tab 50 Mg Tab PO 02/03/24 07:59 50 mg Q8H ALEX Administration Isosorbide Mononitrate 90 mg 01/04/24 09:00 01/04/24 08:41 Isosorbide [place] Extended Rel 30 Mg Tabcr PO 02/03/24 08:59 90 mg QAM AELX Administration Labetalol HCl 10 mg 01/03/24 04:48 01/03/24 05:16 Labetalol Hcl Iv 5 Mg/Ml 20ml IV 02/02/24 04:47 10 mg Q4H PRN Administration Hypertension Losartan Potassium 100 mg 01/03/24 09:00 01/03/24 08:45 Losartan Potassium 50 Mg Tab PO 02/02/24 08:59 100 mg DAILY ALEX Administration Metoprolol Succinate 100 mg 01/02/24 21:00 01/03/24 20:47 Metoprolol Succ 50mg Ext Rel Tab PO 02/01/24 20:59 100 mg HS ALEX Administration Montelukast Sodium 10 mg 01/02/24 21:00 01/03/24 20:48 Montelukast Sodium 10 Mg Tablet PO 02/01/24 20:59 10 mg HS ALEX Administration Potassium Chloride 20 meq 01/03/24 09:15 01/04/24 08:09 Potassium Chloride Crtab 20 Meq Tabcr PO 02/02/24 09:14 20 meq BID ALEX Administration Sodium Bicarbonate 650 mg 01/02/24 21:00 01/04/24 08:10 Sodium Bicarbonate 650 Mg Tab PO 02/01/24 20:59 650 mg TID ALEX Administration Vitamin D 50 mcg 01/03/24 09:00 01/04/24 08:09 Cholecalciferol 25 Mcg (1000 Units) Tab PO 02/02/24 08:59 50 mcg QAM ALEX Administration
--- NOTE | 2024-01-04 13:05 | CT Scan Report ---
CT head/brain wo con CLINICAL HISTORY: 83 years-old Male with AMS. Acutely altered mental status TECHNIQUE: Multiple axial CT images of the head were obtained without contrast. A dose lowering tech nique was utilized adhering to the principles of ALARA. CT DOSE: 844.34 mGy.cm COMPARISON: Head CT January 02, 2024 FINDINGS: No acute intracranial hemorrhage, midline shift, intracranial mass, hydrocephalus, territorial ischem ia or abnormal extra-axial collection. Involutional changes with chronic microvascular ischemic disea se. Unchanged asymmetric left lateral ventriculomegaly. Chronic subcentimeter hyperdensity of the rig ht lentiform nucleus on image 20 series 2. Chronic cerebellar lacunar infarcts. Unchanged encephaloma lacia of the superior left frontal lobe. The calvarium is intact. Prior bilateral lens repair. The paranasal sinuses, mastoid air cells, and m iddle ear cavities are clear. IMPRESSION: Chronic findings as above without acute intracranial abnormality identified. ACT 112: Negative or not required by law. The above report was generated using voice recognition software. It may contain grammatical, syntax o r spelling errors. Electronically signed by: Andre Pineda M.D. 01/04/2024 1:02 PM
--- NOTE | 2024-01-04 13:13 | Nephrology Progress Note ---
Date of Service January 04, 2024 Assessment & Plan (1) Acute on chronic renal failure: Plan: Baseline creatinine low to mid twos. Worsening renal function today with creatinine up to 3.3 after diuresis yesterday: Nonoliguric stage I acute kidney injury on CKD 4 in the setting of labile hypertension with urgency and acute on chronic heart failure with preserved ejection fraction -daily bmp -hold ARB for now, though I do note he had a dose yesterday which may be part of the worsened function today in the setting of diuresis; also not clear or known how well this community dwelling patient with concerns for dementia was following his medication regimen at home > so he may have abrupt renal failure with taking meds that were previously prescribed potentially; would need to review with family as patient is not a reliable historian -Reasonable to use hydralazine today/for the time being 50 mg p.o. every 8 hours Potassium on hold while diuretics on hold Continue Toprol and Imdur Will start calcium channel jesus: Amlodipine 5 mg with evening meal; in order to space out different blood pressure medication doses through the day (2) Acute on chronic heart failure with normal ejection fraction: Plan: needs diuresis and better BP control but would hold diuresis today with worsened renal function >hold further losartan for now; diuretics and other antihypertensives as above -daily standing weight Continue fluid restriction 1.8 L Continue strict intake and output >f/u cardiology recs Admission and Anticipated Discharge Date Admission Date: January 02, 2024 Subjective Diuresed nearly 3 kg yesterday; very confused today and not cooperative w/ ROS or exam Review of Systems 2 Review of Systems: Unobtainable due to cognitive status Physical Exam 2 Constitutional: well developed (lying flat in bed on RA) and + thin Eyes: EOM intact bilaterally ENMT: Ears: no external ear abnormality Nose: no external nose abnormality Mouth: + dry oral mucous membranes Neck: no nuchal rigidity Respiratory: normal respiratory effort Auscultation: + diminished lung sounds (markedly) Cardiovascular: Rate/Rhythm: regular rate (HS distant) and regular rhythm Gastrointestinal (Abdomen): Inspection/Auscultation: normal bowel sounds P ercussion/Palpation: abdomen soft; abdomen nontender Musculoskeletal: Extremities: strength 5/5 throughout Skin: no rashes, warm and dry Psychiatric: Orientation: alert (but not oriented beyond to self) Results & Data Vital Signs (Past 12 Hours) Vital Signs Temp Pulse Pulse Pulse Resp BP Pulse Ox 01/04/24 11:54 86 18 128/86 96 01/04/24 08:00 01/04/24 07:41 36.6 C 64 20 186/96 H 97 01/04/24 07:32 66 01/04/24 07:30 66 01/04/24 03:22 36.5 C 71 18 168/92 H 98 O2 Del Method 01/04/24 11:54 Room Air 01/04/24 08:00 Room Air 01/04/24 07:41 Room Air 01/04/24 07:32 01/04/24 07:30 01/04/24 03:22 Room Air Laboratory Results 01/04/24 07:52 01/04/24 07:52
--- NOTE | 2024-01-04 15:11 | Cardiology Progress Note ---
Date of Service January 04, 2024 Assessment & Plan (1) Hypertensive urgency: (2) Acute heart failure with preserved ejection fraction: (3) Encephalopathy: (4) Aortic stenosis, moderate: (5) Anemia: Plan Patient is an 83-year-old male with known coronary artery and peripheral vascular and carotid artery disease, longstanding hypertension presents with symptoms of shortness of breath and confusion. Marked hypertensive urgency on presentation with chest x-ray findings of pu lmonary edema, heart failure with preserved ejection fraction Blood pressures improving with increased medications and diuresis since hospitalization. Echocardiogram ordered and will be reviewed but on preliminary assessment no significant changes from past No signs suggest acute myocardial injury or ischemia Heart failure likely secondary to hypertensive heart disease and hypertensive urgency, underlying kidney disease with diastolic heart failure Appreciate nephrology input on diuretics Oral hydralazine added to medical regimen with blood pressure improving Will continue to follow with patient 01/04/2024 Impression: 1. Heart failure with preserved ejection fraction, pulmonary edema. Clinically appears improved after diuresis. Agree with holding diuretics and hydralazine currently 2. Hypertensive urgency hemodynamically improved. Hydralazine on hold due to very low blood pressures, renal function and delirium. Consider reintroducing hydralazine at lower dose 3. Acute on chronic kidney disease: Given diffuse vascular disease may be requiring higher perfusion pressures renal and cerebral 4. Dementia/delirium Family fully apprised Admission and Anticipated Discharge Date Admission Date: January 02, 2024 Subjective Patient seen and personally examined. Chart medications and telemetry reviewed Patient alert but disoriented with worsening delirium overnight Has had brisk diuresis and appears improved hemodynamically, volume status and blood pressure Hydralazine and Lasix now on hold. No acute complaints chest pain or discomfort no limited Review of Systems Review of Systems: Unobtainable due to cognitive status Physical Exam Constitutional: + thin and + disheveled; no acute distre ss Eyes: PERRL, conjunctivae normal, anicteric sclerae Neck: trachea midline, no thyromegaly Respiratory: Auscultation: + diminished lung sounds; no rales and no wheezes Cardiovascular: Rate/Rhythm: regular rate and regular rhythm Heart Sounds: normal S1, normal S2 and + murmur (Grade 2 or 6 systolic no diastolic) Vessels: no JVD Extremities: + edema (1+) Gastrointestinal (Abdomen): normal bowel sounds, soft, nontender, no hepatosplenomegaly Results & Data Vital Signs (Past 12 Hours) Vital Signs Temp Pulse Pulse Pulse Resp BP Pulse Ox 01/04/24 11:54 86 18 128/86 96 01/04/24 08:00 01/04/24 07:41 36.6 C 64 20 186/96 H 97 01/04/24 07:32 66 01/04/24 07:30 66 01/04/24 03:22 36.5 C 71 18 168/92 H 98 O2 Del Method 01/04/24 11:54 Room Air 01/04/24 08:00 Room Air 01/04/24 07:41 Room Air 01/04/24 07:32 01/04/24 07:30 01/04/24 03:22 Room Air Laboratory Results Laboratory Results - last 24 hr 01/04/24 07:52 WBC 5.92 RBC 3.59 L Hgb 11.4 L Hct 34.9 L MCV 97.2 MCH 31.8 MCHC 32.7 RDW Std Deviation 52.0 H RDW Coeff of Serene 14.6 H Plt Count 271 MPV 9.9 Sodium 136 Potassium 4.4 Chloride 100 Carbon Dioxide 25 Anion Gap 11 BUN 59 H Creatinine 3.25 H D Est Cr Clr Drug Dosing 15.2 Est GFR ( Amer) 19.2 Est GFR (Non-Af Amer) 16.5 BUN/Creatinine Ratio 18.2 Glucose 102 H Calcium 10.2 Phosphorus 4.5 Magnesium 2.2 (5) Anemia Anemia type: unspecified type Qualified Code(s): D64.9 - Anemia, unspecified
[2024-01-04] MEDS: amLODIPine BESYLATE 5 MG TAB PO SCH (16:49)
--- NOTE | 2024-01-04 19:05 | Communication Note ---
Date of Service: January 04, 2024 Responded to code purple this evening-patient was back in bed with an RN placing a liu catheter. He was breathing spontaneously and oxygenating 95% on room air. Vitals were 117/74, Pulse 96, sinus rhythm on the monitor. He is a WNWD man in NAD but has a consistent concern to get up and go to the bathroom. Appears confused. Pr RN in room, he was in the bathroom earlier when he became lightheaded and appeared to become grewal and ashen to the RN assisting. Appeared to have transiently lost consciousness and was drooling for a moment. He was o ff monitor at that time and then maneuvered back to bed and was placed on monitor. Sinus rhythm was noted. A liu catheter was successfully placed. I spoke with daytime RN who reports that earlier int he day he was noted to become confused with speech less clear. This was after lunch and appeared to have been precipitated by his therapy evaluation which had made him dizzy per RN. Per family this was described to be similar to a previous presentation of TIA, so this prompted a repeat head CT. CT head earlier today revealed no acute abnormalities. Normal speech noted this morning and also now but patient is delirious and now trying to get up out of bed constantly saying "I have to go to the bathroom." Although he can tell me he is in the hospital, it is clear he is confused and disoriented. Uncertain mental baseline with reports of dementia history. Soft mitt restraints are being placed after he attempted to remove liu catheter. CN 2-12 are grossly intact and he is moving all extremities equally. Pupils are round and equal bilaterally. No tremor noted. Patient otherwise is delirious and unable to participate in any exam. He is also much too disoriented to tolerate any repeat imaging of his head, which is likely not needed at this point. Per records, he was given 3 consecutive doses of Lasix 60mg IV yesterday and has a worsening renal function today. Hydralazine, a new antihypertensive for him was started this admission and held this morning. In the setting of aortic stenosis and aggressive treatment of his BP, it is possible this altered consciousness was likely a presyncopal event related to an orthostatic change in BP for which he wasn't able to compensate. He also likely has some component of autonomic neuropathy given his age, and may have had a vasovagal component to this if he was bearing down which isn't known. He did have a BM in the bed after everything calmed down. Will repeat BMP now and relay to morning provider. Tarik,
[2024-01-04] MEDS: OLANZapine 10 MG/2.1 ML SDV IM PRN (19:18)
[2024-01-04 20:14] LABS: BUN Creatinine Ratio 17.8 (10-20); Calcium 10.3 mg/dl (8.6-10.3); Creatinine Clr Calc Pharmacy 13.5 ml/min; Est GFR (African American) 16.6 ml/min; Est GFR (Non-African American) 14.3 ml/min; Potassium 4.4 mmol/L (3.5-5.1)
[2024-01-05 07:20] LABS: Hematocrit (blood only) 35.1 % (42.0-52.0); Hemoglobin 11.4 g/dl (14.0-18.0); Mean Corpuscular Hemoglobin 31.7 pg (25.0-34.0); Mean Corpuscular Hgb Conc 32.5 g/dL (32.0-36.0); Mean Corpuscular Volume 97.5 fL (80.0-100.0); Platelet Count 277 K/uL (130-400); RDW Coefficient of Variation 14.5 % (11.5-14.5); RDW Standard Deviation 51.6 fL (36.4-46.3)
[2024-01-05 07:49] LABS: BUN Creatinine Ratio 17.4 (10-20); Calcium 10.5 mg/dl (8.6-10.3); Creatinine Clr Calc Pharmacy 13.2 ml/min; Est GFR (African American) 16.2 ml/min; Magnesium 2.4 mg/dl (1.7-2.4); Phosphorus 4.6 mg/dl (2.5-4.9); Potassium 5.2 mmol/L (3.5-5.1)
[2024-01-05 09:41] LABS: Appearance Urine Slightly Cloudy (Clear); Bilirubin Urine Negative (Negative); Blood Urine 1+ (Negative); Color Urine Yellow; Glucose Urine UA Negative (Negative); Ketones Urine Negative (Negative); Leukocyte Esterase Urine 1+ (Negative); Nitrite Urine Negative (Negative); Protein Urine 2+ (Negative); Specific Gravity Urine 1.015 (1.000-1.030); Urobilinogen Urine Negative (Negative)
[2024-01-05 10:00] LABS: Bacteria Urine 1+ (Negative); Hyaline Casts Urine 0-5 /lpf (0-5)
[2024-01-05 10:01] LABS: Epithelial Cell Urine 0-5 /lpf (0-5)
--- NOTE | 2024-01-05 10:33 | Nephrology Progress Note ---
Date of Service January 05, 2024 Assessment & Plan Admission and Anticipated Discharge Date Admission Date: January 02, 2024 Subjective Assessment & Plan (1) Acute on chronic renal failure: Plan: Baseline creatinine low to mid twos. Worsening renal function today with creatinine even higher. Did not make much urine and Diuretics on Hold. Also Stop Kcl and Losartan for now. Tila likely from ATN and Creat still rising. However his Mental Status iS quite poor and most likely his underlying dementia was lot worse than evident. No dialysis today. (2) Acute on chronic heart failure with normal ejection fraction: Plan: needs diuresis and better BP control but would hold diuresis today with worsened renal function hold further losartan for now. Daily standing weight Continue fluid restriction 1.8 L Continue strict intake and output Subjective had Code Purple with LOC and Acute Worsening of MS. Now he is sleeping. eyes Closed. NPO and no PO meds currently. made very little urine yesterday after Diuretics held. Review of Systems Review of Systems: Unobtainable due to cognitive status Physical Exam Constitutional: eyes closed and not responsive + dry oral mucous membranes Respiratory: normal respiratory effort Auscultation: + diminished lung sounds Cardiovascular: Rate/Rhythm: regular rate (HS distant) and regular rhythm Gastrointestinal (Abdomen): Inspection/Auscultation: normal bowel sounds Percussion/Palpation: abdomen soft; abdomen nontender Musculoskeletal: Extremities: No edema Skin: no rashes, warm and dry Results & Data Vital Signs (Past 12 Hours) Vital Signs Temp Pulse Pulse Pulse Resp BP Pulse Ox 01/05/24 06:59 36.7 C 84 17 153/92 H 97 01/05/24 02:31 36.7 C 88 18 159/93 H 97 01/05/24 00:27 92 H 18 176/98 H 01/04/24 23:00 88 01/04/24 22:30 36.6 C 76 18 171/100 H 96 O2 Del Method 01/05/24 06:59 Room Air 01/05/24 02:31 Room Air 01/05/24 00:27 01/04/24 23:00 01/04/24 22:30 Room Air
--- NOTE | 2024-01-05 14:45 | Hospitalist Progress Note ---
Date of Service January 05, 2024 Assessment & Plan (1) Palpitations: (2) SOB (shortness of breath): (3) Chronic diastolic heart failure: (4) Hypertensive urgency: (5) CKD (chronic kidney disease) stage 4, GFR 15-29 ml/min: (6) CAD (coronary atherosclerotic disease): (7) TIA (transient ischemic attack): (8) Hx of cancer of lung: (9) AAA (abdominal aortic aneurysm): (10) GERD (gastroesophageal reflux disease): (11) Hx of gout: (12) BPH (benign prostatic hyperplasia): Plan Mr. Pérez is an 83-year-old male with PMH chronic diastolic heart failure, CAD s/p stent, PVD, history AAA repair history of carotid endarterectomy, HTN, HLD, history of TIA, history of lung cancer s/p surgery, CKD IV, chronic anemia, and others listed below presented to ER on 01/02 with c/o episode of palpitations and SOB. In ER afebrile, BP 219/139, P: 72, 95% on room air. No leukocytosis. Negative BioFire respiratory panel D-dimer: 5700. BNP 1215. Negative troponin x 2 CT head: No acute intracranial abnormality CXR: No pneumothorax. There are trace bilateral pleural effusions. There is right greater than left interstitial/vascular thickening consistent with developing asymmetric pulmonary edema. No new focal lung consolidations identified. Left basilar linear densities favor scarring Long discussion (45 min ) over phone with son, Damian, and daughter in law, regarding patient safety at home. They note they have application in for assisted living, but express deep concern for patient's safety over course of last 2-3 months with subtle cognitive decline involving frequently missed medications and confusion spells, including occasional issues with auditory/visual hallucinations. discussed plan of care from medical standpoint, involving optimizing cardiac/renal status and pt/ot evaluation, all questions answered. Altered mental status Ongoing cognitive issues for 2-3 months Generalized weakness DD: Metabolic encephalopathy, delirium, cognitive impairment due to possible vascular dementia, Uremia --CT head:No significant change compared to the prior study. No acute intracranial abnormality. --Repeat CT head:Chronic findings as above without acute intracranial abnormality identified. -- BioFire negative Delirium precautions, fall precautions Avoid benzos continue PT/OT Acute on chronic heart failure with preserved EF Hypertensive Urgency Acute Dyspnea Elevated D-dimer--Chest CT:Equivocal mild pulmonary edema with small right greater than left pleural effusions and mild bibasilar atelectasis. Emphysema with air trapping. There is a new 5 mm solid pulmonary nodule within the right upper lobe with additional stable benign scattered bilateral solid pulmonary nodules measuring up to 4 mm. Aneurysmal dilation of the upper abdominal aorta measures up to 5.3 cm. Prior left upper lobectomy. --Venous Doppler:No evidence of bilateral lower extremity deep venous thrombosis. --VQ scan:pending --ECHO: Close normal LV size. Moderate concentric LVH. Basal septum is thickened and dilated consistent with sigmoid septum. Left ventricle wall motion is normal. EF 55 to 60% with grade 1 diastolic dysfunction. Moderate calcification of the aortic valve leaflets and mild restriction of leaflet mobility. Mild to moderate aortic stenosis is present. Trace mitral regurgitation. Mild tricuspid regurgitation. -Discontinued losartan 2/2 renal function -Continue metoprolol 100mg qhs , Imdur increased to 90mg --Started on amlodipine 5 mg daily --Received Lasix --Monitor volume status --Appreciate cardiology, nephrology Input CELESTE on CKD IV Baseline per Nephrology low-mid 2s Follows with nephrology, Dr. Booker [facility]son [facility] Cr 3.7 today -- Lasix, losartan held Monitor renal function Avoid nephrotoxic agents as able Nephrology following Hyperkalemia Secondary to CELESTE Monitor electrolytes Added low potassium diet Multiple pulmonary nodules Incidental finding on CT Follow-up as outpatient Abnormal urinalysis Suspected UTI Follow-up urine cultures Empirically started on Rocephin CAD s/p stent Ischemic cardiomyopathy Continue aspirin, Plavix, atorvastatin, isosorbide, metoprolol succinate Follows with cardiology [facility] [place] Prior post abdominal aortic aneurysm repair, 2013 open surgical, with chronic abdominal aneurysm dilatation proximal to the repair site. H/O left carotid enterectomy H/O TIA CT Aneurysmal dilation of the upper abdominal aorta measures up to 5.3 cm. Continue aspirin, atorvastatin, Plavix, Metoprolol Prior lung cancer S/p [place] lobectomy 2011 COPD, emphysema Pulmonary nodules -CT with 5 mm solid pulmonary nodule within the right upper lobe with additional stable benign scattered bilateral solid pulmonary nodules measuring up to 4 mm. Follow-up as outpatient Paraesophageal Hiatal Hernia Continue famotidine Gout Continue allopurinol BPH Continue dutasteride DVT Px Heparin SQ Code Status Full Code Admission and Anticipated Discharge Date Admission Date: January 02, 2024 Subjective Patient is seen and examined at bedside Drowsy during my encounter Unable to provide any history Sitter at bedside Discussed with patient's son over the phone No distress on exam Urinalysis suggestive of possible UTI Review of Systems Review of Systems: All systems reviewed & are unremarkable except as noted in Subjective Physical Exam Physical Exam: Physical Exam: Vitals signs as noted above General Appearance: Thin, frail, ill-appearing, no apparent distress Head: normocephalic, Atraumatic Eyes: normal inspection, EOMI Neck: supple, Trachea midline Respiratory/Chest: Decreased breath sounds, CTA, No accessory muscle use Cardiovascular: S1, S2, +murmur Abdomen/GI:Soft, Non tender, Bowel sounds present Extremities/Musculoskeletal:normal inspection, no edema Neurologic/Psych: Unable to perform complete neurological exam,+ drowsy Skin: normal color, warm Results & Data Results & Data Vital Signs (Past 12 Hours) Vital Signs Temp Pulse Resp BP Pulse Ox O2 Del Method 01/05/24 11:02 36.7 C 71 17 113/75 100 Room Air 01/05/24 10:43 Room Air 01/05/24 06:59 36.7 C 84 17 153/92 H 97 Room Air Laboratory Results Short CBC 01/05/24 Range/Units 07:02 WBC 7.80 (4.8-10.8) K/ul Hgb 11.4 L (14.0-18.0) g/dl Hct 35.1 L (42.0-52.0) % Plt Count 277 (130-400) K/uL BMP 01/04/24 01/05/24 19:35 07:02 Sodium 136 138 Potassium 4.4 5.2 H Chloride 100 104 Carbon Dioxide 22 24 BUN 65 H 65 H Creatinine 3.66 H D 3.73 H Glucose 141 H 111 H Calcium 10.3 10.5 H Urine 01/05/24 Range/Units Unknown Urine Color Yellow Urine Appearance Slightly Cloudy (Clear) Urine pH 7.0 (4.5-7.5) Ur Specific Morris 1.015 (1.000-1.030) Urine Protein 2+ H (Negative) Urine Glucose (UA) Negative (Negative)
[2024-01-05] MEDS ORDERED: allopurinoL 100 MG TAB PO SCH (15:00)
[2024-01-05] MEDS: cefTRIAXone SODIUM 1,000 MG in DEXTROSE 5 % MINI-B 50 ML IV SCH (15:21)
--- NOTE | 2024-01-05 17:18 | Cardiology Progress Note ---
Date of Service January 05, 2024 Assessment & Plan (1) Hypertensive urgency: (2) Acute heart failure with preserved ejection fraction: (3) Encephalopathy: (4) Aortic stenosis, moderate: (5) Anemia: Plan Patient is an 83-year-old male with known coronary artery and peripheral vascular and carotid artery disease, longstanding hypertension presents with symptoms of shortness of breath and confusion. Marked hypertensive urgency on presentation with chest x-ray findings of pu lmonary edema, heart failure with preserved ejection fraction. Repeat echocardiogram demonstrating preserved LV systolic function with mild to moderate aortic valve stenosis. Clinically improved since admission with diuresis and medical therapy. Agree with holding diuretic and hydralazine at this time due to borderline hypotension and renal insufficiency. Blood pressure remains labile. Continue metoprolol succinate, atorvastatin, clopidogrel, isosorbide mononitrate, amlodipine and aspirin. Recommend hold isosorbide mononitrate with any recurrent hypotension. Admission and Anticipated Discharge Date Admission Date: January 02, 2024 Subjective Patient seen examined the bedside. Poor historian. Denies chest pain or shortness of breath. States "I do not want this treatment". Telemetry will sinus rhythm with PVCs. Review of Systems Review of Systems: Unobtainable due to cognitive status Physical Exam Constitutional: well nourished; no acute distress Cardiovascular: Rate/Rhythm: regular rate and regular rhythm Heart Sounds: normal S1, normal S2 and + murmur (1-2/6 BETTY) Vessels: no JVD Extremities: no edema Neurologic: CN's II-XI intact bilaterally and moves all extremities Results & Data Vital Signs (Past 12 Hours) Vital Signs Temp Pulse Pulse Resp BP BP Pulse Ox 01/05/24 16:00 36.3 C L 84 18 119/75 94 01/05/24 15:00 72 01/05/24 11:02 36.7 C 71 17 113/75 100 01/05/24 10:43 01/05/24 08:30 78 01/05/24 06:59 36.7 C 84 17 153/92 H 97 O2 Del Method 01/05/24 16:00 Room Air 01/05/24 15:00 01/05/24 11:02 Room Air 01/05/24 10:43 Room Air 01/05/24 08:30 01/05/24 06:59 Room Air Laboratory Results CBC 01/05/24 Range/Units 07:02 WBC 7.80 (4.8-10.8) K/ul RBC 3.60 L (4.70-6.10) M/uL Hgb 11.4 L (14.0-18.0) g/dl Hct 35.1 L (42.0-52.0) % Plt Count 277 (130-400) K/uL Comprehensive Metabolic Panel 01/04/24 01/05/24 Range/Units 19:35 07:02 Sodium 136 138 (136-145) mmol/L Potassium 4.4 5.2 H (3.5-5.1) mmol/L Chloride 100 104 (98-107) mmol/L Carbon Dioxide 22 24 (21-32) mmol/L BUN 65 H 65 H (6-23) mg/dl Creatinine 3.66 H D 3.73 H (0.6-1.4) mg/dl Glucose 141 H 111 H (70-99(Fasting)) mg/dl Calcium 10.3 10.5 H (8.6-10.3) mg/dl Intake and Output 01/05/24 01/05/24 01/05/24 06:59 14:59 22:59 Intake Total 660 / 710 50 / 710 Output Total 300 / 401 175 / 175 Balance -300 / -251 485 / 535 50 / 535 Intake: IV 50 / 50 cefTRIAXone SODIUM 1,000 mg In 50 / 50 Dextrose 5 % Mini-B 50 ml @ 100 mls/hr IV Q24H [facility] Rx#: [id number] Oral 660 / 660 Output: Urine Amount (Catheter) 300 / 400 175 / 175 Albert/Indwelling 300 / 400 175 / 175 Other: Weight 63.1 kg Weight Measurement Method Built in [facility] (5) Anemia Anemia type: unspecified type Qualified Code(s): D64.9 - Anemia, unspecified
[2024-01-05] MEDS: QUEtiapine FUMARATE 25 MG TABLET PO PRN (23:03)
[2024-01-06 00:50] LABS: iSTAT Arterial Blood Gas HCO3 17 meg/L (19-24); iSTAT Arterial Blood Gas pCO2 30 mmHg (35-46); iSTAT Arterial Blood Gas pH 7.37 (7.35-7.45); iSTAT Arterial Blood Gas pO2 82 mmHg (80-95); iSTAT Carbon Dioxide 18 mmol/L (24-31); iSTAT Hematocrit 33 % (42-52); iSTAT Hemoglobin 11.2 g/dl (14.0-18.0); iSTAT Potassium 4.6 mmol/L (3.3-5.0); iSTAT Sodium 134 mmol/L (135-144)
--- NOTE | 2024-01-06 01:03 | CT Scan Report ---
Exam(s): CT HEAD Without Contrast EXAM: CT Head Without Intravenous Contrast CLINICAL HISTORY: Reason for exam: AMS. TECHNIQUE: Axial computed tomography images of the head/brain without intravenous contrast. CTDI is 48.47 mGy and DLP is 899.15 mGy-cm. Automated exposure control was utilized for the study. A dose lowering technique was utilized adhering to the principles of ALARA. COMPARISON: No relevant prior studies available. FINDINGS: Brain: Moderate ischemic microangiopathy.. No hemorrhage. No edema. Ventricles: Unremarkable. No ventriculomegaly. Bones/joints: Unremarkable. No acute fracture. Soft tissues: Unremarkable. Sinuses: Unremarkable as visualized. No acute sinusitis. Mastoid air cells: Unremarkable as visualized. No mastoid effusion. IMPRESSION: Normal head/brain CT. Electronically signed by: Joshua Fleming MD 01/06/24 01:03 AM
--- NOTE | 2024-01-06 01:13 | Critical Care Consultation ---
Date of Consultation January 06, 2024 Assessment & Plan (1) Encephalopathy acute: (2) Acute on chronic renal failure: (3) Acute heart failure with preserved ejection fraction: (4) Aortic stenosis, moderate: (5) HTN (hypertension): (6) CAD (coronary atherosclerotic disease): (7) Bradycardia: Plan Reason Critically Ill: 83 YOM with declination of cognitive status over the past few months per chart review, admitted for what appears acute heart failure exacerbation with worsening hyperactive delirium. Required emergent intubation this evening for sustained unresponsive episode complicated by apnea and sonorous respirations. While in ICU post induction and sedation was noted to be bradycardic requiring 0.5mg Atropine followed by Dopamine infusion to maintain HR and MAP. Neuro - Encephalopathy, Delirium, HX of TIA CAM ICU: [place] - Patient with multiple unresponsive like episodes over the past few days followed by hyperactive delirium - Has been receiving PRN Seroquel and/or olanzapine- this evening he received Seroquel - Followed by unresponsive episode with sonorous respirations that progressed to apneic episodes requiring emergent intubation as he never returned back to baseline - Will sedate with propofol - ? 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 - He initially presented with hypertensive urgency and has had increase and addition of multiple blood pressure medications - ECG is without STEMI or block - He has received his 100mg Metoprolol this evening and this may be exacerbated by his worsening renal function - symptoms at this time do not seem to be related to catastrophic intracranial process at this time - HFpEF - is followed by cardiology as well and has had his diuretics and blood pressure medications adjusted relating to his hemodynamics and renal function. - Will hold his ARB, Amlodipine, Metoprolol - while requiring chronotropic and vasoactive medications - IF dose needs to increase consider holding ISMN as well Respiratory - apneic and hypoventilatory requiring emergent intubation and mechanical ventilation - Will need to investigate further on inciting event as clinical picture at this time has many possible offending culprits - Will attempt to wake up and SBT this morning pending mental status as well as hemodynamics GI - No acute needs - OGT placed to LIWS - Initiate feedings if unable to extubate today and decreasing vasopressors RENAL/LYTES - Non Oliguric ARF on CKD 4, - rapid increase in renal function from earlier on 01/05/24- now with BUN 93 and 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 5.54- remains with stable acid base status as well as electrolytes - Baseline 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 2ish- ARB on hold since 01/05/24 - Doubt that this is a BRASH type picture with preserved electrolytes and acid base balance- but either way BB and ARB on hold - Will replace intravascular volume at this time with plasmalyte 110 ml per hour x1 liter - Hold further diuretics at this time and follow urine out put and intravascular/peripheral fluid volumes - Nephrology following prior to ICU admission appreciate their recommendations as well - Hx BPH - Hold Proscar while Albert in place and while on vasoactive medications ENDO - ICU hyperglycemic protocol HEME - No acute needs ID - UTI Possible - On Rocephin for urine on 01/05/24 with WBC and Bacteria +1 LINES/IV ACCESS - PIV, ETT, OGT, Albert Continue use of these lines - pending his clinical course he may need central access as well as arterial line DVT PROPHYLAXIS - SCDs, Heparin subq DISPO: ICU while requiring vasoactive medications and intubation with mechanical ventilation Family Discussion at 0357- Son Reymundo called back we have reviewed mirian's events as well as worsening renal function and hemodynamics. He reports that he tried to call in on 01/05/24 and was unable to get in touch with case managment as they were going to make Levi a DNR/DNI. Following the options of continuing with full support - he reports that his dad would not want to live like this or go through being on life support. He also reports that he would not want dialysis if it ever came to that. He reports that he would also not want to be dependant on other persons in a assisted living or rehab facility. He was also given the choice of stop further escalation of care and wait until morning to see if he improves mentally or hemodynamically and decide further course following further investigation. Son reports that again that he would not want to be kept alive like this. He was given the option of stopping all life sustaining treatment at this time, turn off sedation and palliatively extubate his dad, If he would continue to progress down declination and to focus on comfort measures only at that time. He understands that he may not pass this morning and if that is the case then he would be DNR/DNI and initiation of Comfort measure when and if he would progress towards . I have personally spent 60 minutes of critical care time in the direct management of this patient. This is a life/limb threatening event. This includes time spent evaluating patient, direct bedside care, chart review, placing orders, interpretation of diagnostic studies, discussion with consultants, patient, and family members, as well as other required patient management activities. This time is exclusive of all separately billable procedures, and teaching time and separate from and in addition to any other critical care service time. Thank you for allowing us to participate in the care of this patient. Please refer to my attending physician's documentation for any further recommendations. History of Present Illness Reason for Consultation: Obtundation with apnea requiring emergent intubation and mechanical ventilation Requesting Physician: Carlos Hurd Attending Physician: Timmy Owens MD History of Present Illness 83 YOM with medical history of: HFpEF, HTN, CKD 4, CAD, TIA, lung cancer with lobectomy in 2011, AAA repair 2017, GERD, BPH. Patient was originally admitted on 01/02/24 for complaints of palpitations and difficulty breathing and was brought in by EMS for hypoxia. He was apparently by chart review appropriate and ambulating with a walker prior to admission, but was noted with cognitive decline over the past few months. Patient has had episodes of hyperactive delirium over the past few nights as well as a previous "CODE PURPLE" for a vasovagal like response where he was slow to respond and staring off, but came back to normal baseline a few nights ago. This evening patient was reportedly sitting in chair at bedside asking for ordering pizza and getting more delirious. He was given Seroquel 25mg at 2303 this evening. At 2320 patient had another "CODE PURPLE" called as he became unresponsive, sitting with mouth open, and gasping respirations. He did come to respond to painful stimuli and moving his all his extremities but remained with staring and incomprehensible sounds. He had ABG performed at that time which was with adequate PH and adequate ventilation with oxygenation. He was take to CT scan for stat CT of the head. This again was negative for acute bleed, mass, or Large territorial stroke. He became a little more arousable and was taken back to his room with plan to follow closely as he previously would come to and be hyperactive delirious shortly after. He had EtCO2 placed on and was then noted to be have apneic periods and hypoventilatory periods. At this time decision was made to bring him to the ICU for monitoring of respiratory status and intubation if no rapid resolution. He was given 0.4mg IV Narcan empirically on arrival that had no response noted. He would groan and move localize with noxious stimuli, however remained with incomprehensible sounds and apnea. Decision was made to intubate the patient as he was unable to maintain or protect his airway at this time. See separate Procedure note by Dr. Berger. Family was attempted to be updated by the Primary Hospitalist Service- Dr. Hurd and the RN without answer. Patient will be maintained in the ICU sedated and on mechanical ventilation, will wean sedation this morning and SBT. Consider EEG in the morning. His labs drawn during his "CODE PURPLE" have returned noting notable increase in his BUN to 93 from 65 and 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 up to 5.54 from 3.73 and HCO3 of 20. He has remained with HR in the 50s, BP stable, afebrile through the past few days. SPO2 100% on room air. CODE: FULL Allergies Allergy/AdvReac Type Severity Reaction Status Date / Time Penicillins Allergy Intermediate Rash Verified 07/02/23 12:43 Home Medications Medication Instructions Recorded Confirmed Type allopurinol 100 mg tablet 100 mg PO UD 08/24/21 01/02/24 History atorvastatin 10 mg tablet 10 mg PO HS 08/24/21 01/02/24 History cholecalciferol (vitamin D3) 50 50 mcg PO QAM 08/24/21 01/02/24 History mcg (2,000 unit) tablet (Vitamin D3) clopidogrel 75 mg tablet 75 mg PO HS 08/24/21 01/02/24 History isosorbide mononitrate 60 mg 60 mg PO QAM 08/24/21 01/02/24 History tablet,extended release 24 hr azelastine 137 mcg-fluticasone 50 2 spray intranasal DIRECTED PRN 12/14/22 01/02/24 History mcg/spray nasal spray Nasal Congestion vjaxp-fbxbqyrb-yqo-turp-pet 1 ea topical DIRECTED PRN Pain 12/14/22 01/02/24 History topical ointment guaifenesin 600 mg tablet, 600 mg PO Q12H PRN Congestion 12/14/22 01/02/24 History extended release 12 hr (Mucinex) lutein 25 mg-zeaxanthin 5 mg 1 cap PO DAILY 12/14/22 01/02/24 History capsule (Ocuvite Blue Light) dutasteride 0.5 mg capsule 0.5 mg PO HS #90 caps 09/17/23 01/02/24 Rx aspirin 81 mg tablet,delayed 81 mg PO 3XWK 01/02/24 01/02/24 History release famotidine 20 mg tablet 20 mg PO BID 01/02/24 01/02/24 History losartan 100 mg tablet 100 mg PO DAILY 01/02/24 01/02/24 History metoprolol succinate 100 mg 100 mg PO HS 01/02/24 01/02/24 History tablet,extended release 24 hr montelukast 10 mg tablet 10 mg PO HS 01/02/24 01/02/24 History sodium bicarbonate 650 mg tablet 650 mg PO TID 01/02/24 01/02/24 History Patient History Medical History CKD (chronic kidney disease) stage 4, GFR 15-29 ml/min BPH (benign prostatic hyperplasia) Acute kidney injury superimposed on chronic kidney disease COVID-19 History of GI bleed 07/25/22, pt recently admitted to [facility] for gi bleed. pt "unsure of all the details, but know that I was anemic and had a couple pints of blood." Poor historian Hearing deficit bilat CORREA's Stomach ulcer pt "thinks it's gone now" Arthritis GERD (gastroesophageal reflux disease) Hx of cancer of lung Hx of gout Anemia recently admitted to [facility] for this TIA (transient ischemic attack) X 2 "a few years ago was last one" CAD (coronary atherosclerotic disease) "S/P LAD stent" HTN (hypertension) Surgical History History of colonoscopy History of tooth extraction History of tonsillectomy and adenoidectomy H/O heart artery stent X 4 (? DATE-"maybe 5 years ago" "LAST 2 STENTS PLACED AT [facility], OTHER 2 AT [facility]") S/P lobectomy of lung History of left-sided carotid endarterectomy H/O aortic aneurysm repair [address] 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 How many Children do You have: 1 Feels Safe at Home: Yes Assistive Devices: Cane and Walker Review of Systems Review of Systems: unable to perform secondary to mental status Physical Exam Physical Exam: PHYSICAL EXAM: General: awake, not following commands Head: Normocephalic, atraumatic ENT: PERRLA, EOMI, no pharyngeal exudate, mucous membranes dry Neuro: GCS 11, speech incomprehensible groans, localizes to pain in all extremities then back to obtundation with sonorous respirations and apnea/hypoventilation Chest: equal rise and fall of the chest, no accessory muscle use, no heaves or thrills, Clear to auscultation, on room air, Cardiac: Regular rate and rhythm, telemetry reviewed- sinus bradycardia, skin warm dry, cap refill <3 seconds, peripheral pulses +2 no JVD, no murmur, no edema GI: NABS x 4 quadrants, soft, nontender to palpation, no rebound, guarding or tenderness : Albert to gravity Extremities: Normal inspection, no peripheral edema or erythema, calfs nontender to palpation Psych: Normal mood and affect Skin: no rash or erythema Results & Data Results & Data Vital Signs (Past 12 Hours) Vital Signs Temp Pulse Pulse Resp BP BP Pulse Ox 01/05/24 22:39 36.5 C 73 18 121/85 94 01/05/24 21:00 01/05/24 19:20 36.7 C 72 18 108/73 93 01/05/24 16:00 36.3 C L 84 18 119/75 94 01/05/24 15:00 72 O2 Del Method 01/05/24 22:39 Room Air 01/05/24 21:00 Room Air 01/05/24 19:20 Room Air 01/05/24 16:00 Room Air 01/05/24 15:00 Laboratory Results Abnormal lab results 01/05/24 01/05/24 01/06/24 Range/Units 07:02 Unknown 00:21 RBC 3.60 L (4.70-6.10) M/uL Hgb 11.4 L (14.0-18.0) g/dl POC Hgb (14.0-18.0) g/dl Hct 35.1 L (42.0-52.0) % POC Hct (42-52) % MCHC (32.0-36.0) g/dL RDW Std Deviation 51.6 H (36.4-46.3) fL RDW Coeff of Serene (11.5-14.5) % [place] # (Auto) (0.11-0.59) K/uL POC pCO2 (35-46) mmHg POC HCO3 (19-24) louis/L POC Total CO2 (24-31) mmol/L POC ABG O2 Sat (90-95) % POC Sodium (135-144) mmol/L Sodium (136-145) mmol/L Potassium 5.2 H (3.5-5.1) mmol/L Carbon Dioxide (21-32) mmol/L Anion Gap (3-11) BUN 65 H (6-23) mg/dl Creatinine 3.73 H (0.6-1.4) mg/dl Glucose 111 H (70-99(Fasting)) mg/dl POC Glucose 194 H (70-99) mg/dl Calcium 10.5 H (8.6-10.3) mg/dl AST (13-39) U/L Troponin I High Sens (0-20) pg/ml Urine Protein 2+ H (Negative) Urine Blood 1+ H (Negative) Ur Leukocyte Esterase 1+ H (Negative) Urine RBC 10-30 H (0-4) /hpf Urine WBC 10-30 H (0-5) /hpf Urine Bacteria 1+ H (Negative) 01/06/24 01/06/24 Range/Units 00:36 00:58 RBC 3.45 L (4.70-6.10) M/uL Hgb 10.9 L (14.0-18.0) g/dl POC Hgb 11.2 L (14.0-18.0) g/dl Hct 34.3 L (42.0-52.0) % POC Hct 33 L (42-52) % MCHC 31.8 L (32.0-36.0) g/dL RDW Std Deviation 52.9 H (36.4-46.3) fL RDW Coeff of Serene 14.7 H (11.5-14.5) % [place] # (Auto) 0.96 H (0.11-0.59) K/uL POC pCO2 30 L (35-46) mmHg POC HCO3 17 L (19-24) louis/L POC Total CO2 18 L (24-31) mmol/L POC ABG O2 Sat 96.0 H (90-95) % POC Sodium 134 L (135-144) mmol/L Sodium 133 L (136-145) mmol/L Potassium (3.5-5.1) mmol/L Carbon Dioxide 20 L (21-32) mmol/L Anion Gap 14 H (3-11) BUN 93 H D (6-23) mg/dl Creatinine 5.54 H* D (0.6-1.4) mg/dl Glucose 133 H (70-99(Fasting)) mg/dl POC Glucose (70-99) mg/dl Calcium (8.6-10.3) mg/dl AST 11 L (13-39) U/L Troponin I High Sens 25.5 H (0-20) pg/ml Urine Protein (Negative) Urine Blood (Negative) Ur Leukocyte Esterase (Negative) Urine RBC (0-4) /hpf Urine WBC (0-5) /hpf Urine Bacteria (Negative) Diagnostic Findings Head CT 01/06/24 00:36 Exam(s): CT HEAD Without Contrast EXAM: CT Head Without Intravenous Contrast CLINICAL HISTORY: Reason for exam: AMS. TECHNIQUE: Axial computed tomography images of the head/brain without intravenous contrast. CTDI is 48.47 mGy and DLP is 899.15 mGy-cm. Automated exposure control was utilized for the study. A dose lowering technique was utilized adhering to the principles of ALARA. COMPARISON: No relevant prior studies available. FINDINGS: Brain: Moderate ischemic microangiopathy.. No hemorrhage. No edema. Ventricles: Unremarkable. No ventriculomegaly. Bones/joints: Unremarkable. No acute fracture. Soft tissues: Unremarkable. Sinuses: Unremarkable as visualized. No acute sinusitis. Mastoid air cells: Unremarkable as visualized. No mastoid effusion. IMPRESSION: Normal head/brain CT. Electronically signed by: Joshua Fleming MD 01/06/24 01:03 AM ECG Additional Comments: Sinus bradycardia Voltage criteria for left ventricular hypertrophy Abnormal ECG When compared with ECG of 06-JAN-2024 00:25, (unconfirmed) T wave inversion now evident in Inferior leads Coding Level of Care Code 44657 CRITICAL CARE 1ST 30-74M Diagnoses Encephalopathy acute G93.40 Acute on chronic renal failure N17.9; N18.9 Acute heart failure with preserved ejection fraction I50.31 Aortic stenosis, moderate I35.0 HTN (hypertension) I10 CAD (coronary atherosclerotic disease) I25.10 Bradycardia R00.1
[2024-01-06] MEDS: NALOXONE HCL 0.4 MG/1 ML VIAL/CARP IV STA (01:20)
[2024-01-06 01:27] LABS: Basophils # (auto) 0.06 K/uL (0.00-0.20); Basophils % (auto) 0.7 %; Eosinophils # (auto) 0.21 K/uL (0.00-0.50); Eosinophils % (auto) 2.5 %; Hematocrit (blood only) 34.3 % (42.0-52.0); Hemoglobin 10.9 g/dl (14.0-18.0); Immature Granulocytes # (auto) 0.11 K/uL (0.01-0.20); Immature Granulocytes % (auto) 1.3 %; Lymphocytes % (auto) 22.2 %; Mean Corpuscular Hemoglobin 31.6 pg (25.0-34.0); Mean Corpuscular Hgb Conc 31.8 g/dL (32.0-36.0); Mean Corpuscular Volume 99.4 fL (80.0-100.0); Mean Platelet Volume 10.1 fL (9.4-12.4); Monocytes # (auto) 0.96 K/uL (0.11-0.59); Monocytes % (auto) 11.2 %; Neutrophils # (auto) 5.31 K/uL (1.40-6.50); Neutrophils % (auto) 62.1 %; Platelet Count 276 K/uL (130-400); RDW Coefficient of Variation 14.7 % (11.5-14.5); RDW Standard Deviation 52.9 fL (36.4-46.3); Red Blood Count 3.45 M/uL (4.70-6.10); White Blood Count 8.55 K/ul (4.8-10.8)
[2024-01-06] MEDS: propofoL 1,000 MG/100 ML VIAL IV SCH (01:30)
[2024-01-06 01:45] LABS: Albumin Globulin Ratio 1.1 (0.9-2); Albumin Level 4.2 gm/dl (3.4-5.0); BUN Creatinine Ratio 16.8 (10-20); Bilirubin,Total 0.5 mg/dl (0.2-1.0); Calcium 9.7 mg/dl (8.6-10.3); Creatinine Clr Calc Pharmacy 8.9 ml/min; Est GFR (African American) 10.1 ml/min; Est GFR (Non-African American) 8.7 ml/min; Globulin 3.7 gm/dl (2.5-4.0); Potassium 4.6 mmol/L (3.5-5.1); Total Protein 7.9 gm/dl (6.0-8.3); Troponin I High Sensitivity 25.5 pg/ml (0-20)
[2024-01-06] MEDS ORDERED: STAT IV Infusion **Titration per Protocol STA ×3 (01:46→02:24)
[2024-01-06] MEDS ORDERED: PROPOFOL BOLUS FROM BAG IV PRN (01:46)
--- NOTE | 2024-01-06 02:08 | Emergency Department Note ---
ED Visit Note I was called up to the ICU for help with intubation for this patient. In brief this patient this patient has had episodes of confusion and confusion throughout his hospital stay. Today there was a code purple called for altered mental status/apnea. Patient had been intermittently having apnea episodes. Decision was made by ICU to intubate the patient. I was called for intubation procedure. 20 mg of etomidate as well as 1 mg of succinylcholine was used for video laryngoscopy intubation with a 7.5 ET tube. Tube was visualized through cords at 24 cm at the lip. Endotracheal Intubation Indication apnea, altered mental status. The patient was on 100% oxygen via NRB prior to the procedure. Suction, airway equipment, RSI drugs, respiratory equipment, and appropriate personnel were prepared prior to the initiation of the procedure. A time out was taken. Induction was performed with etomidate/succinylcholine. After observing the c linical benefit of the medications, the airway was easily visualized utilizing a video laryngoscopy. A 7.5 size ETT tube was placed atraumatically to 24 cm using standard technique. The cuff inflated without signs of malfunction. There were bilateral breath sounds, positive colormetric change, no gastric sounds, a good capnography waveform, and post procedure pulse oximetry was 100%. Post intubati on sedation was administered using propofol. There were no complications. .
[2024-01-06] MEDS: PHENYLEPHRINE/NSS 25 MG/250 ML BAG IV SCH (02:20)
[2024-01-06] MEDS: PROPOFOL IV EMULSION 10 MG/ML 100 ML VIAL IV ONE (02:25)
[2024-01-06] MEDS: PLASMA-LYTE A 500 ML IV ONE (02:26)
[2024-01-06] MEDS: NALOXONE HCL 0.4 MG/1 ML VIAL/CARP ONE (02:28)
[2024-01-06] MEDS: RAPID SEQUENCE INDUCTION BAG ONE (02:28)
[2024-01-06] MEDS: ATROPINE SULFATE 0.1 MG/ML 10ML SYR IV STA (02:29)
[2024-01-06] MEDS: DOPamine 400MG / 250ML D5W IV ONE (02:29)
[2024-01-06] MEDS: PHENYLEPHRINE HCL 25 MG/250 ML NSS IV ONE (02:29)
[2024-01-06] MEDS: ATROPINE SULFATE 0.1 MG/ML 10ML SYR IV ONE (02:29)
[2024-01-06] MEDS: DOPamine / D5W 400 MG/250 ML BAG IV SCH (02:30)
[2024-01-06] MEDS: PLASMA-LYTE A 1,000 ML IV SCH (02:30)
[2024-01-06] MEDS: fentaNYL citrate PF 100 MCG/2 ML VIAL IV PRN (03:37)
[2024-01-06 03:52] LABS: iSTAT Allen Test Pass; iSTAT Art Bld Gas pCO2 Correct 40 mmHg (35-46); iSTAT Art Bld Gas pH Corrected 7.367 (7.35-7.45); iSTAT Arterial Blood Gas HCO3 23 meg/L (19-24); iSTAT Arterial Blood Gas pCO2 42 mmHg (35-46); iSTAT Arterial Blood Gas pH 7.35 (7.35-7.45); iSTAT Arterial Blood Gas pO2 178 mmHg (80-95); iSTAT Arterial Blood Gas pO2 C 172; iSTAT Carbon Dioxide 25 mmol/L (24-31); iSTAT FiO2 50 %; iSTAT Hematocrit 24 % (42-52); iSTAT Hemoglobin 8.2 g/dl (14.0-18.0); iSTAT Potassium 4.8 mmol/L (3.3-5.0); iSTAT Site R Radial; iSTAT Sodium 134 mmol/L (135-144)
[2024-01-06] MEDS ORDERED: MoRPHine SULFATE 2 MG/ML CARP IV PRN ×2 (04:08→08:02)
[2024-01-06] MEDS ORDERED: GLYCOPYRROLATE 0.2 MG/ML VIAL IV PRN (04:08)
[2024-01-06] MEDS ORDERED: PROMETHAZINE HCL 12.5 MG in SODIUM CHLORIDE 0.9% 50 ML IV PRN (04:08)
[2024-01-06] MEDS ORDERED: LORazepam 1 MG in SYRINGE 0.25 ML IV PRN (04:08)
[2024-01-06] MEDS ORDERED: LORazepam 0.5 MG TAB PO PRN (04:08)
[2024-01-06] MEDS ORDERED: ONDANSETRON 4 MG OD TAB SL PRN (04:08)
[2024-01-06] MEDS ORDERED: ONDANSETRON INJ 2 MG/ML 2 ML VIAL IV PRN (04:08)
[2024-01-06] MEDS ORDERED: MoRPHine SULFATE 10 MG/0.5 ML UDP PO PRN ×2 (04:08→08:02)
--- NOTE | 2024-01-06 04:22 | Communication Note ---
Date of Service: January 06, 2024 0420- Patient extubated - vasopressor medications removed as well. No further escalation of care as per discussion with Son. - Comfort Measures orders placed for when patient may need them - Initiate if patient progresses towards with either respiratory failure or hemodynamic failure - DNR/DNI [place] ([facility]-)
[2024-01-06] MEDS ORDERED: LORazepam 1 MG in SYRINGE 0.5 ML IV PRN (04:27)
--- NOTE | 2024-01-06 07:07 | XRay Report ---
XR chest 1V portable CLINICAL HISTORY: post intubation COMPARISON STUDY: Chest radiograph January 02, 2024. Chest CT January 03, 2024. FINDINGS: The tip of the endotracheal tube is 3.4 cm above the tito. Tip of nasogastric tube is wit hin the body of the stomach. There is no evidence for pulmonary edema. There is no consolidation to s uggest pneumonia. A hiatal hernia is noted. Cardiomediastinal silhouette is stable. There are trace b ilateral pleural effusions. Left neck surgical clips are present. No pneumothorax. IMPRESSION: 1. Satisfactory positioning of the endotracheal and nasogastric tubes. 2. No evidence for pulmonary edema. No consolidation to suggest pneumonia. Trace bilateral pleural ef fusions. ACT 112: Negative or not required by law. Electronically signed by: Blair Robles M.D. 01/06/2024 7:06 AM
--- NOTE | 2024-01-06 07:46 | Communication Note ---
Date of Service: January 06, 2024 Code lloyd was called last night as patient suddenly became unresponsive.Heart rates were in 40's when it happened. Saw the patient. Heart rates in 50's. Rest of the vitals ok. Moving extremities on painful stimuli.Once in a while spoke one word on prompting but otherwise mostly unresponsive.ABG was ok. Ct head was ok. Then patient developed apneic episodes and at that time patient was transferred to ICU and was intubated. Called Son and daughter and left voice message.Then Patient seems to became bradycardic requiring a dose of atropine and dopamine infusion to maintain HR and MAP. ICU was able to talk to son. And son wanted patient to be DNR and no escalation of care and comfort care if deteriorates . Patient was extubated and currently seems breathing on his own. BP meds held as patient was bradycardic and required dopamine. To monitor and if declines to notify son and initiate comfort care. Further management based on as patient condition evolves .Notified am providers.
--- NOTE | 2024-01-06 08:00 | Communication Note ---
Date of Service: January 06, 2024 Discussed with patient's son at bedside. Explained by ICU team about patient's condition in detail. He understands and agrees with current management. Patient's son prefers patient be transition to comfort measures only. Patient will be transferred out of ICU and will be transition to comfort measures as per family's request.
[2024-01-06] MEDS ORDERED: ATROPINE SULFATE 1% OP SOLN 5 ML BTL SL PRN (08:02)
[2024-01-06] MEDS ORDERED: LORazepam 0.5 MG in SYRINGE 0.25 ML IV PRN (08:02)
[2024-01-06] MEDS: MoRPHine SULFATE 2 MG/ML CARP ONE (08:11)
--- NOTE | 2024-01-06 08:40 | Electrocardiogram Report ---
Test Reason : Blood Pressure : / mmHG Vent. Rate : 053 BPM Atrial Rate : 053 BPM P-R Int : 138 ms QRS Dur : 090 ms QT Int : 482 ms P-R-T Axes : 066 042 072 degrees QTc Int : 452 ms Sinus bradycardia Left atrial enlargement Left ventricular hypertrophy Abnormal ECG When compared with ECG of 03-JAN-2024 03:38, No significant change Confirmed by Antonio Yuan ([id number]) on 01/06/2024 8:39:54 AM Referred By: REFERRED SELF Confirmed By:Antonio Yuan
--- NOTE | 2024-01-06 08:41 | Electrocardiogram Report ---
Test Reason : Blood Pressure : / mmHG Vent. Rate : 052 BPM Atrial Rate : 052 BPM P-R Int : 152 ms QRS Dur : 096 ms QT Int : 486 ms P-R-T Axes : 049 042 000 degrees QTc Int : 451 ms Sinus bradycardia Left ventricular hypertrophy T-wave inversion in Inferior leads , consider ischemia Abnormal ECG When compared with ECG of 06-JAN-2024 00:25, T wave inversion now evident in Inferior leads Confirmed by Antonio Yuan ([id number]) on 01/06/2024 8:40:59 AM Referred By: REFERRED SELF Confirmed By:Antonio Yuan
[2024-01-06] MEDS ORDERED: ETOMIDATE 2 MG/ML 20 ML VIAL IV ONE (12:29)
[2024-01-06] MEDS ORDERED: SUCCINYLCHOLINE CHLORIDE 20 MG/ML 10 ML VIAL IV ONE (12:29)
--- NOTE | 2024-01-06 18:17 | Hospitalist Progress Note ---
Date of Service January 06, 2024 Assessment & Plan (1) Palpitations: (2) SOB (shortness of breath): (3) Chronic diastolic heart failure: (4) Hypertensive urgency: (5) CKD (chronic kidney disease) stage 4, GFR 15-29 ml/min: (6) CAD (coronary atherosclerotic disease): (7) TIA (transient ischemic attack): (8) Hx of cancer of lung: (9) AAA (abdominal aortic aneurysm): (10) GERD (gastroesophageal reflux disease): (11) Hx of gout: (12) BPH (benign prostatic hyperplasia): Plan Mr. Pérez is an 83-year-old male with PMH chronic diastolic heart failure, CAD s/p stent, PVD, history AAA repair history of carotid endarterectomy, HTN, HLD, history of TIA, history of lung cancer s/p surgery, CKD IV, chronic anemia, and others listed below presented to ER on 01/02 with c/o episode of palpitations and SOB. In ER afebrile, BP 219/139, P: 72, 95% on room air. No leukocytosis. Negative BioFire respiratory panel D-dimer: 5700. BNP 1215. Negative troponin x 2 CT head: No acute intracranial abnormality CXR: No pneumothorax. There are trace bilateral pleural effusions. There is right greater than left interstitial/vascular thickening consistent with developing asymmetric pulmonary edema. No new focal lung consolidations identified. Left basilar linear densities favor scarring As per prior provider: Long discussion (45 min ) over phone with son, Damian, and daughter in law, regarding patient safety at home. They note they have application in for assisted living, but express deep concern for patient's safety over course of last 2-3 months with subtle cognitive decline involving frequently missed medications and confusion spells, including occasional issues with auditory/visual hallucinations. discussed plan of care from medical standpoint, involving optimizing cardiac/renal status and pt/ot evaluation, all questions answered. Altered mental status Ongoing cognitive issues for 2-3 months Generalized weakness DD: Metabolic encephalopathy, delirium, cognitive impairment due to possible vascular dementia, Uremia --CT head:No significant change compared to the prior study. No acute intracranial abnormality. --Repeat CT head:Chronic findings as above without acute intracranial abnormality identified. -- BioFire negative Delirium precautions, fall precautions Avoid benzos continue PT/OT Currently transition to comfort measures only Acute on chronic heart failure with preserved EF Hypertensive Urgency Acute Dyspnea Bradycardia Likely Cardiogenic shock--pressors discontinued Terminally extubated on 01/06/2024 Elevated D-dimer--Chest CT:Equivocal mild pulmonary edema with small right greater than left pleural effusions and mild bibasilar atelectasis. Emphysema with air trapping. There is a new 5 mm solid pulmonary nodule within the right upper lobe with additional stable benign scattered bilateral solid pulmonary nodules measuring up to 4 mm. Aneurysmal dilation of the upper abdominal aorta measures up to 5.3 cm. Prior left upper lobectomy. --Venous Doppler:No evidence of bilateral lower extremity deep venous thrombosis. --VQ scan: ordered--discontinued as currently on comfort measures --ECHO: No change when compared to prior study. EF 55 to 60%. Moderate LVH. Left ventricle wall motion normal. Grade 1 diastolic dysfunction. Trace mitral and tricuspid regurgitation. Mild to moderate aortic stenosis is present. Close normal LV size. Moderate concentric LVH. Basal septum is thickened and dilated consistent with sigmoid septum. Left ventricle wall motion is normal. EF 55 to 60% with grade 1 diastolic dysfunction. Moderate calcification of the aortic valve leaflets and mild restriction of leaflet mobility. Mild to moderate aortic stenosis is present. Trace mitral regurgitation. Mild tricuspid regurgitation. -Discontinued losartan 2/2 renal function -Continue metoprolol 100mg qhs , Imdur increased to 90mg--discontinued and is currently on comfort measures --Started on amlodipine 5 mg daily --Received Lasix --Appreciate cardiology, nephrology Input CELESTE on CKD IV Baseline per Nephrology low-mid 2s Follows with nephrology, Dr. Booker [facility] Cr 5.54 -- Lasix, losartan held Monitor renal function Avoid nephrotoxic agents as able Nephrology following Given age, worsening comorbidities, patient/ patient's familypreferred to be transition to comfort measures only Family prefers no escalation of care Hyperkalemia Secondary to CELESTE Monitor electrolytes Added low potassium diet Multiple pulmonary nodules Incidental finding on CT Follow-up as outpatient Abnormal urinalysis UTI ruled out Urine culture negative CAD s/p stent Ischemic cardiomyopathy Continue aspirin, Plavix, atorvastatin, isosorbide, metoprolol succinate--discontinued as some comfort measures only [facility] Prior post abdominal aortic aneurysm repair, 2013 open surgical, with chronic abdominal aneurysm dilatation proximal to the repair site. H/O left carotid enterectomy H/O TIA CT Aneurysmal dilation of the upper abdominal aorta measures up to 5.3 cm. Continue aspirin, atorvastatin, Plavix, Metoprolol--discontinued as some comfort measures only Prior lung cancer S/p [place] lobectomy 2011 COPD, emphysema Pulmonary nodules -CT with 5 mm solid pulmonary nodule within the right upper lobe with additional stable benign scattered bilateral solid pulmonary nodules measuring up to 4 mm. Follow-up as outpatient Paraesophageal Hiatal Hernia Continue famotidine Gout BPH Was on allopurinol, dutasteride DVT Px Heparin SQ--DCed Code Status DNI/DNR Admission and Anticipated Discharge Date Admission Date: January 02, 2024 Subjective Patient is seen and examined at bedside Patient had code purple overnight resulting in unresponsive episode with bradycardia. He underwent emergent intubation and was thought to be in cardiogenic shock. Pressors were initiated by ICU team. Patient was terminally extubated Discussed with patient's son at bedside Patient denies any pain, dyspnea Transitioned to comfort measures Review of Systems Review of Systems: All systems reviewed & are unremarkable except as noted in Subjective Physical Exam Physical Exam: Physical Exam: Vitals signs as noted above General Appearance: Thin, frail, ill-appearing, no apparent distress Head: normocephalic, Atraumatic Eyes: normal inspection, EOMI Neck: supple, Trachea midline Respiratory/Chest: Decreased breath sounds, CTA, No accessory muscle use Cardiovascular: S1, S2, +murmur Abdomen/GI:Soft, Non tender, Bowel sounds present Extremities/Musculoskeletal:normal inspection, no edema Neurologic/Psych: Alert, awake, oriented X1, Grossly moves all extremities, Skin: normal color, warm Results & Data Results & Data Vital Signs (Past 12 Hours) Vital Signs Temp Pulse Pulse Resp BP BP Pulse Ox 01/06/24 16:52 36.6 C 90 16 115/73 94 01/06/24 08:37 01/06/24 06:10 36.7 C 61 15 93 01/06/24 06:10 132/69 O2 Del Method 01/06/24 16:52 Room Air 01/06/24 08:37 Room Air 01/06/24 06:10 01/06/24 06:10 Laboratory Results Short CBC 01/06/24 Range/Units 00:58 WBC 8.55 (4.8-10.8) K/ul Hgb 10.9 L (14.0-18.0) g/dl Hct 34.3 L (42.0-52.0) % Plt Count 276 (130-400) K/uL BMP 01/06/24 00:58 Sodium 133 L Potassium 4.6 Chloride 99 Carbon Dioxide 20 L BUN 93 H D Creatinine 5.54 H* D Glucose 133 H Calcium 9.7 Liver Function 01/06/24 Range/Units 00:58 Total Bilirubin 0.5 (0.2-1.0) mg/dl AST 11 L (13-39) U/L ALT 12 (7-52) U/L Alkaline Phosphatase 71 (34-104) U/L Albumin 4.2 (3.4-5.0) gm/dl
--- NOTE | 2024-01-07 16:27 | Hospitalist Progress Note ---
Date of Service January 07, 2024 Assessment & Plan (1) Palpitations: (2) SOB (shortness of breath): (3) Chronic diastolic heart failure: (4) Hypertensive urgency: (5) CKD (chronic kidney disease) stage 4, GFR 15-29 ml/min: (6) CAD (coronary atherosclerotic disease): (7) TIA (transient ischemic attack): (8) Hx of cancer of lung: (9) AAA (abdominal aortic aneurysm): (10) GERD (gastroesophageal reflux disease): (11) Hx of gout: (12) BPH (benign prostatic hyperplasia): Plan Mr. Pérez is an 83-year-old male with PMH chronic diastolic heart failure, CAD s/p stent, PVD, history AAA repair history of carotid endarterectomy, HTN, HLD, history of TIA, history of lung cancer s/p surgery, CKD IV, chronic anemia, and others listed below presented to ER on 01/02 with c/o episode of palpitations and SOB. In ER afebrile, BP 219/139, P: 72, 95% on room air. No leukocytosis. Negative BioFire respiratory panel D-dimer: 5700. BNP 1215. Negative troponin x 2 CT head: No acute intracranial abnormality CXR: No pneumothorax. There are trace bilateral pleural effusions. There is right greater than left interstitial/vascular thickening consistent with developing asymmetric pulmonary edema. No new focal lung consolidations identified. Left basilar linear densities favor scarring As per prior provider: Long discussion (45 min ) over phone with son, Damian, and daughter in law, regarding patient safety at home. They note they have application in for assisted living, but express deep concern for patient's safety over course of last 2-3 months with subtle cognitive decline involving frequently missed medications and confusion spells, including occasional issues with auditory/visual hallucinations. discussed plan of care from medical standpoint, involving optimizing cardiac/renal status and pt/ot evaluation, all questions answered. Altered mental status Ongoing cognitive issues for 2-3 months Generalized weakness DD: Metabolic encephalopathy, delirium, cognitive impairment due to possible vascular dementia, Uremia --CT head:No significant change compared to the prior study. No acute intracranial abnormality. --Repeat CT head:Chronic findings as above without acute intracranial abnormality identified. -- BioFire negative Delirium precautions, fall precautions Avoid benzos continue PT/OT Currently transition to comfort measures only Discussed with patient's son today: Plan to continue current treatment and discuss further options tomorrow if continues to be stable Acute on chronic heart failure with preserved EF Hypertensive Urgency Acute Dyspnea Bradycardia Likely Cardiogenic shock--pressors discontinued Terminally extubated on 01/06/2024 Elevated D-dimer--Chest CT:Equivocal mild pulmonary edema with small right greater than left pleural effusions and mild bibasilar atelectasis. Emphysema with air trapping. There is a new 5 mm solid pulmonary nodule within the right upper lobe with additional stable benign scattered bilateral solid pulmonary nodules measuring up to 4 mm. Aneurysmal dilation of the upper abdominal aorta measures up to 5.3 cm. Prior left upper lobectomy. --Venous Doppler:No evidence of bilateral lower extremity deep venous thrombosis. --VQ scan: ordered--discontinued as currently on comfort measures --ECHO: No change when compared to prior study. EF 55 to 60%. Moderate LVH. Left ventricle wall motion normal. Grade 1 diastolic dysfunction. Trace mitral and tricuspid regurgitation. Mild to moderate aortic stenosis is present. Close normal LV size. Moderate concentric LVH. Basal septum is thickened and dilated consistent with sigmoid septum. Left ventricle wall motion is normal. EF 55 to 60% with grade 1 diastolic dysfunction. Moderate calcification of the aortic valve leaflets and mild restriction of leaflet mobility. Mild to moderate aortic stenosis is present. Trace mitral regurgitation. Mild tricuspid regurgitation. -Discontinued losartan 2/2 renal function -Continue metoprolol 100mg qhs , Imdur increased to 90mg--discontinued and is currently on comfort measures --Started on amlodipine 5 mg daily --Received Lasix --Appreciate cardiology, nephrology Input CELESTE on CKD IV Baseline per Nephrology low-mid 2s Follows with nephrology, Dr. Booker [facility]son [facility] Cr 5.54 -- Lasix, losartan held Monitor renal function Avoid nephrotoxic agents as able Nephrology following Given age, worsening comorbidities, patient/ patient's familypreferred to be transition to comfort measures only Family prefers no escalation of care Hyperkalemia Secondary to CELESTE Monitor electrolytes Added low potassium diet Multiple pulmonary nodules Incidental finding on CT Follow-up as outpatient Abnormal urinalysis UTI ruled out Urine culture negative CAD s/p stent Ischemic cardiomyopathy Continue aspirin, Plavix, atorvastatin, isosorbide, metoprolol succinate--discontinued as some comfort measures only Follows with cardiology [facility] Prior post abdominal aortic aneurysm repair, 2013 open surgical, with chronic abdominal aneurysm dilatation proximal to the repair site. H/O left carotid enterectomy H/O TIA CT Aneurysmal dilation of the upper abdominal aorta measures up to 5.3 cm. Continue aspirin, atorvastatin, Plavix, Metoprolol--discontinued as some comfort measures only Prior lung cancer S/p [place] lob[place] 2011 COPD, emphysema Pulmonary nodules -CT with 5 mm solid pulmonary nodule within the right upper lobe with additional stable benign scattered bilateral solid pulmonary nodules measuring up to 4 mm. Follow-up as outpatient Paraesophageal Hiatal Hernia Continue famotidine Gout BPH Was on allopurinol, dutasteride DVT Px Heparin SQ--DCed Code Status DNI/DNR Admission and Anticipated Discharge Date Admission Date: January 02, 2024 Subjective Patient is seen and examined at bedside States having minimal right ankle pain " I feel stiff" Otherwise offers no complaints Discussed with patient's son over the phone today Currently on comfort measures only Review of Systems Review of Systems: All systems reviewed & are unremarkable except as noted in Subjective Physical Exam Physical Exam: Physical Exam: Vitals signs as noted above General Appearance: Thin, frail, ill-appearing, no apparent distress Head: normocephalic, Atraumatic Eyes: normal inspection, EOMI Neck: supple, Trachea midline Respiratory/Chest: Decreased breath sounds, CTA, No accessory muscle use Cardiovascular: S1, S2, +murmur Abdomen/GI:Soft, Non tender, Bowel sounds present Extremities/Musculoskeletal:normal inspection, no edema Neurologic/Psych: Alert, awake, oriented X1, Grossly moves all extremities Skin: normal color, warm
[2024-01-07] MEDS: ACETAMINOPHEN 325 MG TAB PO PRN (20:30)
--- NOTE | 2024-01-08 16:38 | Hospitalist Progress Note ---
Date of Service January 08, 2024 Assessment & Plan (1) Palpitations: (2) SOB (shortness of breath): (3) Chronic diastolic heart failure: (4) Hypertensive urgency: (5) CKD (chronic kidney disease) stage 4, GFR 15-29 ml/min: (6) CAD (coronary atherosclerotic disease): (7) TIA (transient ischemic attack): (8) Hx of cancer of lung: (9) AAA (abdominal aortic aneurysm): (10) GERD (gastroesophageal reflux disease): (11) Hx of gout: (12) BPH (benign prostatic hyperplasia): Plan Mr. Pérez is an 83-year-old male with PMH chronic diastolic heart failure, CAD s/p stent, PVD, history AAA repair history of carotid endarterectomy, HTN, HLD, history of TIA, history of lung cancer s/p surgery, CKD IV, chronic anemia, and others listed below presented to ER on 01/02 with c/o episode of palpitations and SOB. In ER afebrile, BP 219/139, P: 72, 95% on room air. No leukocytosis. Negative BioFire respiratory panel D-dimer: 5700. BNP 1215. Negative troponin x 2 CT head: No acute intracranial abnormality CXR: No pneumothorax. There are trace bilateral pleural effusions. There is right greater than left interstitial/vascular thickening consistent with developing asymmetric pulmonary edema. No new focal lung consolidations identified. Left basilar linear densities favor scarring As per prior provider: Long discussion (45 min ) over phone with son, Damian, and daughter in law, regarding patient safety at home. They note they have application in for assisted living, but express deep concern for patient's safety over course of last 2-3 months with subtle cognitive decline involving frequently missed medications and confusion spells, including occasional issues with auditory/visual hallucinations. discussed plan of care from medical standpoint, involving optimizing cardiac/renal status and pt/ot evaluation, all questions answered. Altered mental status Ongoing cognitive issues for 2-3 months Generalized weakness DD: Metabolic encephalopathy, delirium, cognitive impairment due to possible vascular dementia, Uremia --CT head:No significant change compared to the prior study. No acute intracranial abnormality. --Repeat CT head:Chronic findings as above without acute intracranial abnormality identified. -- BioFire negative Delirium precautions, fall precautions Avoid benzos continue PT/OT Currently transition to comfort measures only Discussed with patient's son on multiple occasions: Plan to continue comfort measures for now Plan to discharge to rehab facility as able Acute on chronic heart failure with preserved EF Hypertensive Urgency Acute Dyspnea Bradycardia Likely Cardiogenic shock--pressors discontinued Terminally extubated on 01/06/2024 Elevated D-dimer--Chest CT:Equivocal mild pulmonary edema with small right greater than left pleural effusions and mild bibasilar atelectasis. Emphysema with air trapping. There is a new 5 mm solid pulmonary nodule within the right upper lobe with additional stable benign scattered bilateral solid pulmonary nodules measuring up to 4 mm. Aneurysmal dilation of the upper abdominal aorta measures up to 5.3 cm. Prior left upper lobectomy. --Venous Doppler:No evidence of bilateral lower extremity deep venous thrombosis. --VQ scan: ordered--discontinued as currently on comfort measures --ECHO: No change when compared to prior study. EF 55 to 60%. Moderate LVH. Left ventricle wall motion normal. Grade 1 diastolic dysfunction. Trace mitral and tricuspid regurgitation. Mild to moderate aortic stenosis is present. Close normal LV size. Moderate concentric LVH. Basal septum is thickened and dilated consistent with sigmoid septum. Left ventricle wall motion is normal. EF 55 to 60% with grade 1 diastolic dysfunction. Moderate calcification of the aortic valve leaflets and mild restriction of leaflet mobility. Mild to moderate aortic stenosis is present. Trace mitral regurgitation. Mild tricuspid regurgitation. -Discontinued losartan 2/2 renal function -Continue metoprolol 100mg qhs , Imdur increased to 90mg--discontinued and is currently on comfort measures --Started on amlodipine 5 mg daily --Received Lasix --Appreciate cardiology, nephrology Input CELESTE on CKD IV Baseline per Nephrology low-mid 2s Follows with nephrology, Dr. Booker [facility] Cr 5.54 -- Lasix, losartan held Monitor renal function Avoid nephrotoxic agents as able Nephrology following Given age, worsening comorbidities, patient/ patient's familypreferred to be transition to comfort measures only Family prefers no escalation of care Hyperkalemia Secondary to CELESTE Monitor electrolytes Added low potassium diet Multiple pulmonary nodules Incidental finding on CT Follow-up as outpatient Abnormal urinalysis UTI ruled out Urine culture negative CAD s/p stent Ischemic cardiomyopathy Continue aspirin, Plavix, atorvastatin, isosorbide, metoprolol succinate--discontinued as some comfort measures only Follows with cardiology [facility] Prior post abdominal aortic aneurysm repair, 2013 open surgical, with chronic abdominal aneurysm dilatation proximal to the repair site. H/O left carotid enterectomy H/O TIA CT Aneurysmal dilation of the upper abdominal aorta measures up to 5.3 cm. Continue aspirin, atorvastatin, Plavix, Metoprolol--discontinued as some comfort measures only Prior lung cancer S/p [place] lob[place] 2011 COPD, emphysema Pulmonary nodules -CT with 5 mm solid pulmonary nodule within the right upper lobe with additional stable benign scattered bilateral solid pulmonary nodules measuring up to 4 mm. Follow-up as outpatient Paraesophageal Hiatal Hernia Continue famotidine Gout BPH Was on allopurinol, dutasteride DVT Px Heparin SQ--DCed Code Status DNI/DNR Disposition Rehab as able Admission and Anticipated Discharge Date Admission Date: January 02, 2024 Subjective Patient is seen and examined at bedside Patient's mental status waxes and wanes States having some discomfort of left great toe Discussed with patient's son at bedside Patient denied any chest pain, dyspnea Currently on comfort measures only Patient's son discussed about possible transition to hospice Review of Systems Review of Systems: All systems reviewed & are unremarkable except as noted in Subjective Physical Exam Physical Exam: Physical Exam: Vitals signs as noted above General Appearance: Thin, frail, ill-appearing, no apparent distress Head: normocephalic, Atraumatic Eyes: normal inspection, EOMI Neck: supple, Trachea midline Respiratory/Chest: Decreased breath sounds, CTA, No accessory muscle use Cardiovascular: S1, S2, +murmur Abdomen/GI:Soft, Non tender, Bowel sounds present Extremities/Musculoskeletal:normal inspection, no edema Neurologic/Psych: Alert, awake, oriented X1, Grossly moves all extremities Skin: normal color, warm Results & Data Results & Data Vital Signs (Past 12 Hours) Vital Signs O2 Del Method 01/08/24 11:23 Room Air
--- NOTE | 2024-01-09 17:07 | Hospitalist Progress Note ---
Date of Service January 09, 2024 Assessment & Plan (1) Palpitations: (2) SOB (shortness of breath): (3) Chronic diastolic heart failure: (4) Hypertensive urgency: (5) CKD (chronic kidney disease) stage 4, GFR 15-29 ml/min: (6) CAD (coronary atherosclerotic disease): (7) TIA (transient ischemic attack): (8) Hx of cancer of lung: (9) AAA (abdominal aortic aneurysm): (10) GERD (gastroesophageal reflux disease): (11) Hx of gout: (12) BPH (benign prostatic hyperplasia): Plan Mr. Pérez is an 83-year-old male with PMH chronic diastolic heart failure, CAD s/p stent, PVD, history AAA repair history of carotid endarterectomy, HTN, HLD, history of TIA, history of lung cancer s/p surgery, CKD IV, chronic anemia, and others listed below presented to ER on 01/02 with c/o episode of palpitations and SOB. In ER afebrile, BP 219/139, P: 72, 95% on room air. No leukocytosis. Negative BioFire respiratory panel D-dimer: 5700. BNP 1215. Negative troponin x 2 CT head: No acute intracranial abnormality CXR: No pneumothorax. There are trace bilateral pleural effusions. There is right greater than left interstitial/vascular thickening consistent with developing asymmetric pulmonary edema. No new focal lung consolidations identified. Left basilar linear densities favor scarring As per prior provider: Long discussion (45 min ) over phone with son, Damian, and daughter in law, regarding patient safety at home. They note they have application in for assisted living, but express deep concern for patient's safety over course of last 2-3 months with subtle cognitive decline involving frequently missed medications and confusion spells, including occasional issues with auditory/visual hallucinations. discussed plan of care from medical standpoint, involving optimizing cardiac/renal status and pt/ot evaluation, all questions answered. Altered mental status Ongoing cognitive issues for 2-3 months Generalized weakness DD: Metabolic encephalopathy, delirium, cognitive impairment due to possible vascular dementia, Uremia --CT head:No significant change compared to the prior study. No acute intracranial abnormality. --Repeat CT head:Chronic findings as above without acute intracranial abnormality identified. -- BioFire negative Delirium precautions, fall precautions Avoid benzos continue PT/OT Currently transition to comfort measures only Discussed with patient's son on multiple occasions: Plan to continue comfort measures for now Plan to discharge to rehab facility tomorrow Acute on chronic heart failure with preserved EF Hypertensive Urgency Acute Dyspnea Bradycardia Likely Cardiogenic shock--pressors discontinued Terminally extubated on 01/06/2024 Elevated D-dimer--Chest CT:Equivocal mild pulmonary edema with small right greater than left pleural effusions and mild bibasilar atelectasis. Emphysema with air trapping. There is a new 5 mm solid pulmonary nodule within the right upper lobe with additional stable benign scattered bilateral solid pulmonary nodules measuring up to 4 mm. Aneurysmal dilation of the upper abdominal aorta measures up to 5.3 cm. Prior left upper lobectomy. --Venous Doppler:No evidence of bilateral lower extremity deep venous thrombosis. --VQ scan: ordered--discontinued as currently on comfort measures --ECHO: No change when compared to prior study. EF 55 to 60%. Moderate LVH. Left ventricle wall motion normal. Grade 1 diastolic dysfunction. Trace mitral and tricuspid regurgitation. Mild to moderate aortic stenosis is present. Close normal LV size. Moderate concentric LVH. Basal septum is thickened and dilated consistent with sigmoid septum. Left ventricle wall motion is normal. EF 55 to 60% with grade 1 diastolic dysfunction. Moderate calcification of the aortic valve leaflets and mild restriction of leaflet mobility. Mild to moderate aortic stenosis is present. Trace mitral regurgitation. Mild tricuspid regurgitation. -Discontinued losartan 2/2 renal function -Continue metoprolol 100mg qhs , Imdur increased to 90mg--discontinued and is currently on comfort measures --Started on amlodipine 5 mg daily --Received Lasix --Appreciate cardiology, nephrology Input CELESTE on CKD IV Baseline per Nephrology low-mid 2s Follows with nephrology, Dr. Booker Willson [facility] Cr 5.54 -- Lasix, losartan held Monitor renal function Avoid nephrotoxic agents as able Nephrology following Given age, worsening comorbidities, patient/ patient's familypreferred to be transition to comfort measures only Family prefers no escalation of care Hyperkalemia Secondary to CELESTE Monitor electrolytes Added low potassium diet Multiple pulmonary nodules Incidental finding on CT Follow-up as outpatient Abnormal urinalysis UTI ruled out Urine culture negative CAD s/p stent Ischemic cardiomyopathy Continue aspirin, Plavix, atorvastatin, isosorbide, metoprolol succinate--discontinued as some comfort measures only [facility]s [facility] Prior post abdominal aortic aneurysm repair, 2013 open surgical, with chronic abdominal aneurysm dilatation proximal to the repair site. H/O left carotid enterectomy H/O TIA CT Aneurysmal dilation of the upper abdominal aorta measures up to 5.3 cm. Continue aspirin, atorvastatin, Plavix, Metoprolol--discontinued as some comfort measures only Prior lung cancer S/p [place] lobectomy 2011 COPD, emphysema Pulmonary nodules -CT with 5 mm solid pulmonary nodule within the right upper lobe with additional stable benign scattered bilateral solid pulmonary nodules measuring up to 4 mm. Follow-up as outpatient Paraesophageal Hiatal Hernia Continue famotidine Gout BPH Was on allopurinol, dutasteride DVT Px Heparin SQ--DCed Code Status DNI/DNR Disposition Rehab likely tomorrow Admission and Anticipated Discharge Date Admission Date: January 02, 2024 Subjective Patient is seen and examined at bedside Alert, awake during my encounter Pleasantly confused Unable to obtain any meaningful history No distress on exam Afebrile today Waiting for placement Review of Systems Review of Systems: All systems reviewed & are unremarkable except as noted in Subjective Physical Exam Physical Exam: Physical Exam: Vitals signs as noted above General Appearance: Thin, frail, ill-appearing, no apparent distress Head: normocephalic, Atraumatic Eyes: normal inspection, EOMI Neck: supple, Trachea midline Respiratory/Chest: Decreased breath sounds, CTA, No accessory muscle use Cardiovascular: S1, S2, +murmur Abdomen/GI:Soft, Non tender, Bowel sounds present Extremities/Musculoskeletal:normal inspection, no edema Neurologic/Psych: Alert, awake, oriented X1, Grossly moves all extremities Skin: normal color, warm Results & Data Results & Data Vital Signs (Past 12 Hours) Vital Signs O2 Del Method 01/09/24 08:40 Room Air
--- NOTE | 2024-01-10 11:57 | Hospitalist Progress Note ---
Date of Service January 10, 2024 Assessment & Plan (1) Palpitations: (2) SOB (shortness of breath): (3) Chronic diastolic heart failure: (4) Hypertensive urgency: (5) CKD (chronic kidney disease) stage 4, GFR 15-29 ml/min: (6) CAD (coronary atherosclerotic disease): (7) TIA (transient ischemic attack): (8) Hx of cancer of lung: (9) AAA (abdominal aortic aneurysm): (10) GERD (gastroesophageal reflux disease): (11) Hx of gout: (12) BPH (benign prostatic hyperplasia): Plan Mr. Pérez is an 83-year-old male with PMH chronic diastolic heart failure, CAD s/p stent, PVD, history AAA repair history of carotid endarterectomy, HTN, HLD, history of TIA, history of lung cancer s/p surgery, CKD IV, chronic anemia, and others listed below presented to ER on 01/02 with c/o episode of palpitations and SOB. In ER afebrile, BP 219/139, P: 72, 95% on room air. No leukocytosis. Negative BioFire respiratory panel D-dimer: 5700. BNP 1215. Negative troponin x 2 CT head: No acute intracranial abnormality CXR: No pneumothorax. There are trace bilateral pleural effusions. There is right greater than left interstitial/vascular thickening consistent with developing asymmetric pulmonary edema. No new focal lung consolidations identified. Left basilar linear densities favor scarring As per prior provider: Long discussion (45 min ) over phone with son, Damian, and daughter in law, regarding patient safety at home. They note they have application in for assisted living, but express deep concern for patient's safety over course of last 2-3 months with subtle cognitive decline involving frequently missed medications and confusion spells, including occasional issues with auditory/visual hallucinations. discussed plan of care from medical standpoint, involving optimizing cardiac/renal status and pt/ot evaluation, all questions answered. Altered mental status Ongoing cognitive issues for 2-3 months Generalized weakness DD: Metabolic encephalopathy, delirium, cognitive impairment due to possible vascular dementia, Uremia --CT head:No significant change compared to the prior study. No acute intracranial abnormality. --Repeat CT head:Chronic findings as above without acute intracranial abnormality identified. -- BioFire negative Delirium precautions, fall precautions Avoid benzos continue PT/OT Currently transition to comfort measures only Discussed with patient's son on multiple occasions: Plan to continue comfort measures for now Plan to discharge to SNF today Acute on chronic heart failure with preserved EF Hypertensive Urgency Acute Dyspnea Bradycardia Likely Cardiogenic shock--pressors discontinued Terminally extubated on 01/06/2024 Elevated D-dimer--Chest CT:Equivocal mild pulmonary edema with small right greater than left pleural effusions and mild bibasilar atelectasis. Emphysema with air trapping. There is a new 5 mm solid pulmonary nodule within the right upper lobe with additional stable benign scattered bilateral solid pulmonary nodules measuring up to 4 mm. Aneurysmal dilation of the upper abdominal aorta measures up to 5.3 cm. Prior left upper lobectomy. --Venous Doppler:No evidence of bilateral lower extremity deep venous thrombosis. --VQ scan: ordered--discontinued as currently on comfort measures --ECHO: No change when compared to prior study. EF 55 to 60%. Moderate LVH. Left ventricle wall motion normal. Grade 1 diastolic dysfunction. Trace mitral and tricuspid regurgitation. Mild to moderate aortic stenosis is present. Close normal LV size. Moderate concentric LVH. Basal septum is thickened and dilated consistent with sigmoid septum. Left ventricle wall motion is normal. EF 55 to 60% with grade 1 diastolic dysfunction. Moderate calcification of the aortic valve leaflets and mild restriction of leaflet mobility. Mild to mode rate aortic stenosis is present. Trace mitral regurgitation. Mild tricuspid regurgitation. -Discontinued losartan 2/2 renal function -Continue metoprolol 100mg qhs , Imdur increased to 90mg--discontinued and is currently on comfort measures --Started on amlodipine 5 mg daily --Received Lasix --Appreciate cardiology, nephrology Input CELESTE on CKD IV Baseline per Nephrology low-mid 2s Follows with nephrology, Dr. Booker Willson [facility] Cr 5.54 -- Lasix, losartan held Monitor renal function Avoid nephrotoxic agents as able Nephrology following Given age, worsening comorbidities, patient/ patient's familypreferred to be transition to comfort measures only Family prefers no escalation of care Hyperkalemia Secondary to CELESTE Monitor electrolytes Added low potassium diet Multiple pulmonary nodules Incidental finding on CT Follow-up as outpatient Abnormal urinalysis UTI ruled out Urine culture negative CAD s/p stent Ischemic cardiomyopathy Continue aspirin, Plavix, atorvastatin, isosorbide, metoprolol succinate--discontinued as some comfort measures only Follows with cardiology [facility] Prior post abdominal aortic aneurysm repair, 2013 open surgical, with chronic abdominal aneurysm dilatation proximal to the repair site. H/O left carotid enterectomy H/O TIA CT Aneurysmal dilation of the upper abdominal aorta measures up to 5.3 cm. Continue aspirin, atorvastatin, Plavix, Metoprolol--discontinued as some comfort measures only Prior lung cancer S/p [place] lob[place] 2011 COPD, emphysema Pulmonary nodules -CT with 5 mm solid pulmonary nodule within the right upper lobe with additional stable benign scattered bilateral solid pulmonary nodules measuring up to 4 mm. Follow-up as outpatient Paraesophageal Hiatal Hernia Continue famotidine Gout BPH Was on allopurinol, dutasteride DVT Px Heparin SQ--DCed Code Status DNI/DNR Disposition SNF Admission and Anticipated Discharge Date Admission Date: January 02, 2024 Subjective Patient is seen and examined at bedside Oriented to person and place during my encounter today States having some abdominal discomfort but otherwise no other complaints Denies any chest pain, dyspnea Also denies any nausea, vomiting Plan to be discharged to rehab facility today Review of Systems Review of Systems: All systems reviewed & are unremarkable except as noted in Subjective Physical Exam Physical Exam: Physical Exam: Vitals signs as noted above General Appearance: Thin, frail, ill-appearing, no apparent distress Head: normocephalic, Atraumatic Eyes: normal inspection, EOMI Neck: supple, Trachea midline Respiratory/Chest: Decreased breath sounds, CTA, No accessory muscle use Cardiovascular: S1, S2, +murmur Abdomen/GI:Soft, Non tender, Bowel sounds present Extremities/Musculoskeletal:normal inspection, no edema Neurologic/Psych: Alert, awake, oriented X2, Grossly moves all extremities Skin: normal color, warm Results & Data Results & Data Vital Signs (Past 12 Hours) Vital Signs O2 Del Method 01/10/24 07:24 Room Air
--- NOTE | 2024-01-10 12:04 | Discharge Summary ---
Date of Service January 10, 2024 Admission HPI Per Admitting Provider Patient is 83-year-old male with PMH chronic diastolic heart failure, CAD s/p stent, PVD, history AAA repair history of carotid endarterectomy, HTN, HLD, history of TIA, history of lung cancer s/p surgery, CKD IV, chronic anemia, and others listed below presented to ER with c/o episode of palpitations and SOB this morning. History obtained from patient as well as inpatient and outpatient chart review. Patient states this morning he was standing trying to urinate when he had sudden onset of "heart pounding" with associated shortness of breath, nausea, diaphoresis. Denies any chest pain, dizziness, headache, syncope, or vomiting. Patient states he made it back to his bed and sat down and called EMS. It is reported EMS noted that patient looked pale and they reported 89% on room air pulse ox and patient was wheezing. Reported gave patient DuoNeb and oxygen. Upon arrival to ER patient is noted to be hypertensive, is not hypoxic. Denies any shortness of breath, palpitations, chest pain, nausea currently. Patient states several weeks ago he had a fall and was seen at [facility] and reports was told had negative CT head at that time. Patient states he also injured his right knee which is getting better. He states he has been having home physical therapy. Has been using walker to ambulate. Patient denies any recurrent falls since. He states has been having progressive memory problems. Patient states earlier this week physical therapist did not complete his physical therapy secondary to his BP being high and reported SBP of 200. Patient reports chronic shortness of breath with exertion since his lung cancer and lobectomy. Denies shortness of breath at rest. Reports chronic clear rhinorrhea. History BPH with chronic hesitancy reported. Denies fever/chills, V/D/C, CORREA, dizziness, syncope, vision changes, neck pain, orthopnea, cough, sore throat, choking, otalgia, rhinorrhea, abdominal pain, paresthesias, extremity weakness, extremity edema, rashes, dysuria, hematuria. Admission Exam Per Admitting Provider General: no acute distress, WDWN Head: normocephalic, atraumatic Eyes: PERRL, EOM's intact, conjunctiva non-injected, anicteric ENT: normal inspection external ears, nose, mucous membranes moist Neck: supple, trachea midline Lungs: clear, no respiratory distress. on RA with O2 sat 95%, slightly diminished breath sounds CV: RRR, + murmur, trace pretibial edema Abd: normal BS, soft, non-tender Ext: no cyanosis, no calf tenderness Neuro: Alert, oriented to person, place, month and year, initially didn't know the day of week, no focal deficits noted, normal affect Skin: warm, dry Principal Diagnosis Acute on chronic heart failure with preserved EF Hypertensive Urgency Cardiogenic shock Acute metabolic encephalopathy CELESTE on CKD IV Coronary artery disease Bradycardia Hyperkalemia Discharge Data Allergies Allergy/AdvReac Type Severity Reaction Status Date / Time Penicillins Allergy Intermediate Rash Verified 07/02/23 12:43 Consultations 01/02/24 13:23 ED Decision to Admit Stat 01/03/24 07:37 Consult Cardiology Routine 01/03/24 08:03 Consult Nephrology Routine 01/06/24 01:52 Consult Flatwork Feeder Routine Ordered Studies 01/02/24 10:47 CT head/brain wo con Stat 01/02/24 12:54 US venous doppler LE BI Stat 01/03/24 08:00 CT chest diagnostic wo con Routine 01/04/24 11:37 CT head/brain wo con Urgent 01/06/24 00:36 CT head/brain wo con Stat Hospital Course (1) Palpitations: (2) SOB (shortness of breath): (3) Chronic diastolic heart failure: (4) Hypertensive urgency: (5) CKD (chronic kidney disease) stage 4, GFR 15-29 ml/min: (6) CAD (coronary atherosclerotic disease): (7) TIA (transient ischemic attack): (8) Hx of cancer of lung: (9) AAA (abdominal aortic aneurysm): (10) GERD (gastroesophageal reflux disease): (11) Hx of gout: (12) BPH (benign prostatic hyperplasia): Plan Mr. Pérez is an 83-year-old male with PMH chronic diastolic heart failure, CAD s/p stent, PVD, history AAA repair history of carotid endarterectomy, HTN, HLD, history of TIA, history of lung cancer s/p surgery, CKD IV, chronic anemia, and others listed below presented to ER on 01/02 with c/o episode of palpitations and SOB. In ER afebrile, BP 219/139, P: 72, 95% on room air. No leukocytosis. Negative BioFire respiratory panel D-dimer: 5700. BNP 1215. Negative troponin x 2 CT head: No acute intracranial abnormality CXR: No pneumothorax. There are trace bilateral pleural effusions. There is right greater than left interstitial/vascular thickening consistent with developing asymmetric pulmonary edema. No new focal lung consolidations identified. Left basilar linear densities favor scarring As per prior provider: Long discussion (45 min ) over phone with son, Damian, and daughter in law, regarding patient safety at home. They note they have application in for assisted living, but express deep concern for patient's safety over course of last 2-3 months with subtle cognitive decline involving frequently missed medications and confusion spells, including occasional issues with auditory/visual hallucinations. discussed plan of care from medical standpoint, involving optimizing cardiac/renal status and pt/ot evaluation, all questions answered. Altered mental status Ongoing cognitive issues for 2-3 months Generalized weakness DD: Metabolic encephalopathy, delirium, cognitive impairment due to possible vascular dementia, Uremia --CT head:No significant change compared to the prior study. No acute intracranial abnormality. --Repeat CT head:Chronic findings as above without acute intracranial abnormality identified. -- BioFire negative Delirium precautions, fall precautions Avoid benzos continue PT/OT Currently transition to comfort measures only Discussed with patient's son on multiple occasions: Plan to continue comfort measures for now Plan to discharge to SNF today Plan is to eventually transition to hospice upon discharge Acute on chronic heart failure with preserved EF Hypertensive Urgency Acute Dyspnea Bradycardia Likely Cardiogenic shock--pressors discontinued Terminally extubated on 01/06/2024 Elevated D-dimer--Chest CT:Equivocal mild pulmonary edema with small right greater than left pleural effusions and mild bibasilar atelectasis. Emphysema with air trapping. There is a new 5 mm solid pulmonary nodule within the right upper lobe with additional stable benign scattered bilateral solid pulmonary nodules measuring up to 4 mm. Aneurysmal dilation of the upper abdominal aorta measures up to 5.3 cm. Prior left upper lobectomy. --Venous Doppler:No evidence of bilateral lower extremity deep venous thrombosis. --VQ scan: ordered--discontinued as currently on comfort measures --ECHO: No change when compared to prior study. EF 55 to 60%. Moderate LVH. Left ventricle wall motion normal. Grade 1 diastolic dysfunction. Trace mitral and tricuspid regurgitation. Mild to moderate aortic stenosis is present. Close normal LV size. Moderate concentric LVH. Basal septum is thickened and dilated consistent with sigmoid septum. Left ventricle wall motion is normal. EF 55 to 60% with grade 1 diastolic dysfunction. Moderate calcification of the aortic valve leaflets and mild restriction of leaflet mobility. Mild to moderate aortic stenosis is present. Trace mitral regurgitation. Mild tr icuspid regurgitation. -Discontinued losartan 2/2 renal function -Continue metoprolol 100mg qhs , Imdur increased to 90mg--discontinued and is currently on comfort measures --Started on amlodipine 5 mg daily --Received Lasix --Appreciate cardiology, nephrology Input CELESTE on CKD IV Baseline per Nephrology low-mid 2s Follows with nephrology, Dr. Booker Willson [facility] Cr 5.54 -- Lasix, losartan held Monitor renal function Avoid nephrotoxic agents as able Nephrology following Given age, worsening comorbidities, patient/ patient's familypreferred to be transition to comfort measures only Family prefers no escalation of care Hyperkalemia Secondary to CELESTE Monitor electrolytes Added low potassium diet Multiple pulmonary nodules Incidental finding on CT Follow-up as outpatient Abnormal urinalysis UTI ruled out Urine culture negative CAD s/p stent Ischemic cardiomyopathy Continue aspirin, Plavix, atorvastatin, isosorbide, metoprolol succinate--discontinued as some comfort measures only Follows with cardiology [facility] Prior post abdominal aortic aneurysm repair, 2013 open surgical, with chronic abdominal aneurysm dilatation proximal to the repair site. H/O left carotid enterectomy H/O TIA CT Aneurysmal dilation of the upper abdominal aorta measures up to 5.3 cm. Continue aspirin, atorvastatin, Plavix, Metoprolol--discontinued as some comfort measures only Prior lung cancer S/p [place] lobectomy 2011 COPD, emphysema Pulmonary nodules -CT with 5 mm solid pulmonary nodule within the right upper lobe with additional stable benign scattered bilateral solid pulmonary nodules measuring up to 4 mm. Follow-up as outpatient Paraesophageal Hiatal Hernia Continue famotidine Gout BPH Was on allopurinol, dutasteride DVT Px Heparin SQ--DCed Code Status DNI/DNR Disposition SNF Total Time Total Time Spent Total Time Spent (In Minutes): 49 minutes Discharge Plan Discharge Items Patient Disposition: Transfer Group Home Fac Reason For Visit: SOB Discharge Diagnosis: Acute on chronic heart failure with preserved EF Hypertensive Urgency Cardiogenic shock Acute metabolic encephalopathy CELESTE on CKD IV Coronary artery disease Bradycardia Hyperkalemia Activity: Per Instructions section Exercise/Sports: Gradually increase as tolerated Non-emergency contact: Primary Care Provider Call non-emergency contact if: you have any medication questions, your symptoms worsen, your pain is concerning for you and you have a fever Follow-up/Referrals: Lexis Jasso [Primary Care Provider] - Diet: Regular Addtl Attending Provider Instructions: Follow-up with your primary care physician in 1 week upon discharge from rehab facility Follow-up with your blackjack dealer in 3 to 4 weeks Follow-up with your multi purpose machine operator in 2 to 3 weeks -- Monitor your blood pressure regularly at rehab facility. Discussed with your physician for further adjustment of medications as needed --Obtain blood test (metabolic panel) in 1 week and follow-up with your physician for further recommendations for Seek immediate medical attention if your symptoms reoccur or worsen Please take all medications as instructed on discharge list below. Please call if you have any questions or problems. You can reach a [facility] hospitalist on duty at [facility] 24 hours a day by calling [phone] Pending Studies at Discharge: No Stand-Alone Forms: My [facility] Skilled Items Patient informed of condition?: Yes DNR: Yes Discharge Level of Care: Skilled Communicable Disease: No Discharge Prognosis: Stable Lines: None Urinary Catheter: No Medications and DC Order Prescriptions: Continued dutasteride 0.5 mg capsule 0.5 mg PO HS Qty: 90 3RF [id number] Ointment 1 ea TOPICAL DIRECTED PRN (Reason: Pain) azelastine-fluticasone 137-50 mcg/spray spray,non-aerosol 2 spray INTRANASAL DIRECTED PRN (Reason: Nasal Congestion) lutein-zeaxanthin [Ocuvite Blue Light] 25-5 mg capsule 1 cap PO DAILY guaifenesin [Mucinex] 600 mg Tablet Extended Release 12hr 600 mg PO Q12H PRN (Reason: Congestion) atorvastatin 10 mg Tablet 10 mg PO HS clopidogrel 75 mg Tablet 75 mg PO HS allopurinol 100 mg Tablet 100 mg PO UD Rx Instructions: Take mon, fri isosorbide mononitrate 60 mg Tablet Extended Release 24 Hr 60 mg PO QAM cholecalciferol (vitamin D3) [Vitamin D3] 50 mcg (2,000 unit) Tablet 50 mcg PO QAM montelukast 10 mg tablet 10 mg PO HS aspirin 81 mg tablet,delayed release (DR/EC) 81 mg PO [id number] Rx Instructions: Friday and Friday sodium bicarbonate 650 mg tablet 650 mg PO TID famotidine 20 mg tablet 20 mg PO BID Held metoprolol succinate 100 mg tablet extended release 24 hr 100 mg PO HS Hold Instructions: Until further recommendations by your primary care physician losartan 100 mg tablet 100 mg PO DAILY Hold Instructions: Until further recommendations by your primary care physician Discharge Orders: Discharge Order (Routine); Ordered 01/10/24 Ordered By: Timmy Owens Admission Data Admit Date/Time: 01/02/24 13:40 Attending Provider: Timmy Owens Admit Provider: Puja Abraham Primary Care Provider: Lexis Jasso Other Providers: [facility]; Puja Abraham; Jenna Cowan; Sylvester Waller; [facility]
--- NOTE | 2024-01-10 15:14 | Communication Note ---
Date of Service: January 10, 2024 Patient could not be discharged today due to transportation issues. Will likely discharge to SNF tomorrow
--- NOTE | 2024-01-11 09:00 | Hospitalist Progress Note ---
Date of Service January 11, 2024 Assessment & Plan (1) Palpitations: (2) SOB (shortness of breath): (3) Chronic diastolic heart failure: (4) Hypertensive urgency: (5) CKD (chronic kidney disease) stage 4, GFR 15-29 ml/min: (6) CAD (coronary atherosclerotic disease): (7) TIA (transient ischemic attack): (8) Hx of cancer of lung: (9) AAA (abdominal aortic aneurysm): (10) GERD (gastroesophageal reflux disease): (11) Hx of gout: (12) BPH (benign prostatic hyperplasia): Plan Mr. Pérez is an 83-year-old male with PMH chronic diastolic heart failure, CAD s/p stent, PVD, history AAA repair history of carotid endarterectomy, HTN, HLD, history of TIA, history of lung cancer s/p surgery, CKD IV, chronic anemia, and others listed below presented to ER on 01/02 with c/o episode of palpitations and SOB. In ER afebrile, BP 219/139, P: 72, 95% on room air. No leukocytosis. Negative BioFire respiratory panel D-dimer: 5700. BNP 1215. Negative troponin x 2 CT head: No acute intracranial abnormality CXR: No pneumothorax. There are trace bilateral pleural effusions. There is right greater than left interstitial/vascular thickening consistent with developing asymmetric pulmonary edema. No new focal lung consolidations identified. Left basilar linear densities favor scarring As per prior provider: Long discussion (45 min ) over phone with son, Damian, and daughter in law, regarding patient safety at home. They note they have application in for assisted living, but express deep concern for patient's safety over course of last 2-3 months with subtle cognitive decline involving frequently missed medications and confusion spells, including occasional issues with auditory/visual hallucinations. discussed plan of care from medical standpoint, involving optimizing cardiac/renal status and pt/ot evaluation, all questions answered. Altered mental status Ongoing cognitive issues for 2-3 months Generalized weakness DD: Metabolic encephalopathy, delirium, cognitive impairment due to possible vascular dementia, Uremia --CT head:No significant change compared to the prior study. No acute intracranial abnormality. --Repeat CT head:Chronic findings as above without acute intracranial abnormality identified. -- BioFire negative Delirium precautions, fall precautions Avoid benzos continue PT/OT Currently transition to comfort measures only Discussed with patient's son on multiple occasions: Plan to continue comfort measures for now Plan is to eventually transition to hospice upon discharge Clinically no significant change from yesterday Plan to be discharged to rehab facility today per case management Acute on chronic heart failure with preserved EF Hypertensive Urgency Acute Dyspnea Bradycardia Likely Cardiogenic shock--pressors discontinued Terminally extubated on 01/06/2024 Elevated D-dimer--Chest CT:Equivocal mild pulmonary edema with small right greater than left pleural effusions and mild bibasilar atelectasis. Emphysema with air trapping. There is a new 5 mm solid pulmonary nodule within the right upper lobe with additional stable benign scattered bilateral solid pulmonary nodules measuring up to 4 mm. Aneurysmal dilation of the upper abdominal aorta measures up to 5.3 cm. Prior left upper lobectomy. --Venous Doppler:No evidence of bilateral lower extremity deep venous thrombosis. --VQ scan: ordered--discontinued as currently on comfort measures --ECHO: No change when compared to prior study. EF 55 to 60%. Moderate LVH. Left ventricle wall motion normal. Grade 1 diastolic dysfunction. Trace mitral and tricuspid regurgitation. Mild to moderate aortic stenosis is present. Close normal LV size. Moderate concentric LVH. Basal septum is thickened and dilated consistent with sigmoid septum. Left ventricle wall motion is normal. EF 55 to 60% with grade 1 diastolic dysfunction. Moderate calcification of the aortic valve leaflets and mild restriction of leaflet mobility. Mild to moderate aortic stenosis is present. Trace mitral regurgitation. Mild tricuspid regurgitation. -Discontinued losartan 2/2 renal function -Continue metoprolol 100mg qhs , Imdur increased to 90mg--discontinued and is currently on comfort measures --Started on amlodipine 5 mg daily --Received Lasix --Appreciate cardiology, nephrology Input CELESTE on CKD IV Baseline per Nephrology low-mid 2s Follows with nephrology, Dr. Booker Willson [facility] Cr 5.54 -- Lasix, losartan held Monitor renal function Avoid nephrotoxic agents as able Nephrology following Given age, worsening comorbidities, patient/ patient's familypreferred to be transition to comfort measures only Family prefers no escalation of care Hyperkalemia Secondary to CELESTE Monitor electrolytes Added low potassium diet Multiple pulmonary nodules Incidental finding on CT Follow-up as outpatient Abnormal urinalysis UTI ruled out Urine culture negative CAD s/p stent Ischemic cardiomyopathy Continue aspirin, Plavix, atorvastatin, isosorbide, metoprolol succinate--discontinued as some comfort measures only Follows with cardiology [facility] [place] Prior post abdominal aortic aneurysm repair, 2013 open surgical, with chronic abdominal aneurysm dilatation proximal to the repair site. H/O left carotid enterectomy H/O TIA CT Aneurysmal dilation of the upper abdominal aorta measures up to 5.3 cm. Continue aspirin, atorvastatin, Plavix, Metoprolol--discontinued as some comfort measures only Prior lung cancer S/p [place] lob[place] 2011 COPD, emphysema Pulmonary nodules -CT with 5 mm solid pulmonary nodule within the right upper lobe with additional stable benign scattered bilateral solid pulmonary nodules measuring up to 4 mm. Follow-up as outpatient Paraesophageal Hiatal Hernia Continue famotidine Gout BPH Was on allopurinol, dutasteride DVT Px Heparin SQ--DCed Code Status DNI/DNR Disposition SNF Admission and Anticipated Discharge Date Admission Date: January 02, 2024 Subjective Patient is seen and examined at bedside Was having breakfast during my encounter Abdominal pain resolved No new complaints Plan to be discharged to SNF today No distress on exam Denies any chest pain, dyspnea, nausea, vomiting Review of Systems Review of Systems: All systems reviewed & are unremarkable except as noted in Subjective Physical Exam Physical Exam: Physical Exam: Vitals signs as noted above General Appearance: Thin, frail, ill-appearing, no apparent distress Head: normocephalic, Atraumatic Eyes: normal inspection, EOMI Neck: supple, Trachea midline Respiratory/Chest: Decreased breath sounds, CTA, No accessory muscle use Cardiovascular: S1, S2, +murmur Abdomen/GI:Soft, Non tender, Bowel sounds present Extremities/Musculoskeletal:normal inspection, no edema Neurologic/Psych: Alert, awake, oriented X2, Grossly moves all extremities Skin: normal color, warm
== END 2024-01-11 12:30 | DRG 291 ==
LOC: ED 09:26 → SUATTDRO 13:40 → EDINP 13:40 → 2S 16:30 → 1E 01-06 01:33 → 3E 01-06 08:36

== ENCOUNTER 2024-04-01 07:58 | Inpatient (IN) ==
--- NOTE | 2024-04-01 08:20 | Emergency Department Note ---
Impression & Plan CHF (congestive heart failure), Pleural effusion ED Provider Note Diagnosis: CHF exacerbation, pleural effusion Disposition: Admission CHIEF COMPLAINT: Short of breath HPI: Patient is an 84-year-old male presenting with complaint of shortness of breath. Patient had acute dyspnea this morning while in the bathroom. Patient was rapidly breathing and oxygen saturation was 90%. EMS placed him on 10 L nonrebreather brought him to the hospital where we were able to wean him off upon arrival of oxygen. Patient was given 2 sprays of nitroglycerin which reportedly significantly helped his symptoms. Patient unsure if he had any active chest pain. Patient states that he has been noticing worsening dyspnea on exertion over the past 1 month's time. Patient has had some increased lower extremity swelling. PAST MEDICAL HISTORY: See Below PAST SURGICAL HISTORY: See Below SOCIAL HISTORY: See Below HOME MEDICATIONS: See Below ALLERGIES: See Below VITALS: See Below PHYSICAL EXAMINATION: GENERAL: Well appearing, well nourished, NAD, non-toxic. EYE EXAM: Normal conjunctiva. OROPHARYNX: Moist mucus membranes. Grossly normal dentition. NECK: Supple, LUNGS: Clear to auscultation. Normal chest wall mechanics. HEART: NSR, mild lower extremity edema bilaterally ABDOMEN: Abdomen soft, non-tender, normo-active bowel sounds, no masses, no rebound or guarding BACK: No CVA TTP. SKIN: No rashes and no bruising. UPPER EXTREMITIES: Upper extremities are grossly normal LOWER EXTREMITIES: Grossly normal, no edema. NEURO EXAM: A&O x3,, normal speech, moves all 4 extremities PSYCH: Cooperative MEDICAL DECISION MAKING: Reviewed external documents: History obtained from: Patient ER Course: Patient is an 84-year-old male presenting with shortness of breath. Patient denies infectious symptoms. Patient denies any chest pain. Patient not requiring oxygen at this time. Patient found to have bilateral pleural effusions was started on Lasix. Patient's EKG without signs of ischemia. Patient's BNP elevated. Patient case discussed with hospital service further treatment evaluation. Labs (independently interpreted) are significant for: Elevated BNP Imaging results (independently interpreted): Chest x-ray with bilateral pleural effusions EKG interpretation (independently interpreted): Sinus rhythm no ST segment elevation or depression Medications given: IV Lasix Consultants: Hospitalist service Chronic conditions affecting care: Congestive heart failure Triage Nursing notes reviewed and agree them. Vital Signs: reviewed and remarkable for: no significant abnormalities Past Med/Surg History Medical History (Updated 04/01/24 @ 14:28 by Russell Crump DO) Flash pulmonary edema CKD (chronic kidney disease) stage 4, GFR 15-29 ml/min BPH (benign prostatic hyperplasia) Acute kidney injury superimposed on chronic kidney disease COVID-19 History of GI bleed 07/25/22, pt recently admitted to [facility] for gi bleed. pt "unsure of all the details, but know that I was anemic and had a couple pints of blood." Poor historian Hearing deficit bilat CORREA's Stomach ulcer pt "thinks it's gone now" Arthritis GERD (gastroesophageal reflux disease) Hx of cancer of lung Hx of gout Anemia recently admitted to [facility] for this TIA (transient ischemic attack) X 2 "a few years ago was last one" CAD (coronary atherosclerotic disease) "S/P LAD stent" HTN (hypertension) Surgical History History of colonoscopy History of tooth extraction History of tonsillectomy and adenoidectomy H/O heart artery stent X 4 (? DATE-"maybe 5 years ago" "LAST 2 STENTS PLACED AT [facility], OTHER 2 AT [facility]") S/P lobectomy of lung History of left-sided carotid endarterectomy H/O aortic aneurysm repair 2013 AT [facility] Family History Other No family history of adverse response to anesthesia No significant family history Social History Smoking Status: Former smoker Second Hand Exposure: No; Do You Dip or Chew Tobacco: No; Hx Alcohol Use: No Hx Substance Use: No Preferred Language: Thai Communication Ability: Effective Hydraulic Blocker Required: No Beliefs That Will Affect Care: Uatsdin Current Living Situation: Alone Current Living Situation Comment: 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 How many Children do You have: 1 Feels Safe at Home: Yes Assistive Devices: Cane and Walker Allergies Allergies Allergy/AdvReac Type Severity Reaction Status Date / Time Penicillins Allergy Intermediate Rash Verified 04/01/24 11:24 Home Meds Home Medications Medication Instructions Recorded Confirmed allopurinol 100 mg tablet 100 mg PO UD 08/24/21 04/01/24 atorvastatin 10 mg tablet 10 mg PO HS 08/24/21 04/01/24 cholecalciferol (vitamin D3) 50 50 mcg PO QAM 08/24/21 04/01/24 mcg (2,000 unit) tablet (Vitamin D3) clopidogrel 75 mg tablet 75 mg PO HS 08/24/21 04/01/24 isosorbide mononitrate 60 mg 60 mg PO QAM 08/24/21 04/01/24 tablet,extended release 24 hr azelastine 137 mcg-fluticasone 50 2 spray intranasal DIRECTED PRN 12/14/22 04/01/24 mcg/spray nasal spray Nasal Congestion kzusg-wfxxioge-dqb-turp-pet 1 ea topical DIRECTED PRN Pain 12/14/22 04/01/24 topical ointment guaifenesin 600 mg tablet, 600 mg PO Q12H PRN Congestion 12/14/22 04/01/24 extended release 12 hr (Mucinex) lutein 25 mg-zeaxanthin 5 mg 1 cap PO DAILY 12/14/22 04/01/24 capsule (Ocuvite Blue Light) aspirin 81 mg tablet,delayed 81 mg PO 3XWK 01/02/24 04/01/24 release famotidine 20 mg tablet 20 mg PO BID 01/02/24 04/01/24 sodium bicarbonate 650 mg tablet 650 mg PO TID 01/02/24 04/01/24 amlodipine 5 mg tablet 10 mg PO DAILY 04/01/24 04/01/24 finasteride 5 mg tablet 5 mg PO PM 04/01/24 04/01/24 hydralazine 25 mg tablet 25 mg PO BID 04/01/24 04/01/24 metoprolol succinate 50 mg 75 mg PO PM 04/01/24 04/01/24 tablet,extended release 24 hr Results & Data (ED) Vital Signs Vital Signs - 24 hr 04/01/24 08:04 04/01/24 08:04 04/01/24 08:04 Temperature 36.6 C Temperature Source Oral Pulse Rate 81 Pulse Rhythm Regular Pulse Strength Normal Respiratory Rate 20 Respiratory Effort / Characteristics Spontaneous SOB on Exertion Non-Labored Spontaneous Respiratory Depth Shallow Normal Respiratory Pattern Regular Blood Pressure 176/110 H Blood Pressure Mean 132 Blood Pressure Position Semi-fowlers Pulse Oximetry 95 95 Oxygen Delivery Method Room Air Room Air Sepsis Recent Fever Within 48 Hours No Sepsis New/Unexplained Change in Mental Status N/A Sepsis Action Taken by Nursing No Action Required 04/01/24 08:04 04/01/24 08:16 04/01/24 08:34 Temperature Temperature Source Pulse Rate 80 83 Pulse Rhythm Regular Pulse Strength Respiratory Rate 20 20 Respiratory Effort / Characteristics Spontaneous Respiratory Depth Normal Respiratory Pattern Regular Blood Pressure Blood Pressure Mean Blood Pressure Position Pulse Oximetry 95 95 Oxygen Delivery Method Room Air Room Air Sepsis Recent Fever Within 48 Hours Sepsis New/Unexplained Change in Mental Status Sepsis Action Taken by Nursing 04/01/24 13:15 Temperature Temperature Source Pulse Rate 82 Pulse Rhythm Pulse Strength Respiratory Rate Respiratory Effort / Characteristics Respiratory Depth Respiratory Pattern Blood Pressure Blood Pressure Mean Blood Pressure Position Pulse Oximetry Oxygen Delivery Method Sepsis Recent Fever Within 48 Hours Sepsis New/Unexplained Change in Mental Status Sepsis Action Taken by Nursing Laboratory Data 04/01/24 08:13 04/01/24 08:13 Lab Results 04/01/24 04/01/24 04/01/24 Range/Units 08:13 10:00 Unknown WBC 6.17 (4.8-10.8) K/ul RBC 3.16 L (4.70-6.10) M/uL Hgb 9.9 L (14.0-18.0) g/dl Hct 30.4 L (42.0-52.0) % MCV 96.2 (80.0-100.0) fL MCH 31.3 (25.0-34.0) pg MCHC 32.6 (32.0-36.0) g/dL RDW Std Deviation 48.1 H (36.4-46.3) fL RDW Coeff of [place] 13.6 (11.5-14.5) % Plt Count 218 (130-400) K/uL MPV 10.1 (9.4-12.4) fL Immature Gran % (Auto) 0.8 % Neut % (Auto) 67.5 % Lymph % (Auto) 13.8 % [place] % (Auto) 7.6 % Eos % (Auto) 9.7 % Baso % (Auto) 0.6 % Neut # (Auto) 4.16 (1.40-6.50) K/uL Lymph # (Auto) 0.85 L (1.20-3.40) K/uL [place] # (Auto) 0.47 (0.11-0.59) K/uL Eos # (Auto) 0.60 H (0.00-0.50) K/uL Baso # (Auto) 0.04 (0.00-0.20) K/uL Immature Gran # (Auto) 0.05 (0.01-0.20) K/uL VBG pH 7.40 (7.36-7.41) VBG pCO2 38 (38-50) mmHg VBG pO2 52 mmHg VBG HCO3 24 mmol/L VBG O2 Saturation 84.8 % VBG Base Excess -1.1 mEq/L Sodium 136 (136-145) mmol/L Potassium 3.9 (3.5-5.1) mmol/L Chloride 105 (98-107) mmol/L Carbon Dioxide 23 (21-32) mmol/L Anion Gap 8 (3-11) BUN 38 H (6-23) mg/dl Creatinine 2.69 H (0.6-1.4) mg/dl Est Cr Clr Drug Dosing 18.8 ml/min Est GFR ( Amer) 23.9 ml/min Est GFR (Non-Af Amer) 20.7 ml/min BUN/Creatinine Ratio 14.1 (10-20) Glucose 106 H (70-99(Fasting)) mg/dl Calcium 9.3 (8.6-10.3) mg/dl Total Bilirubin 0.5 (0.2-1.0) mg/dl AST 11 L (13-39) U/L ALT 10 (7-52) U/L Alkaline Phosphatase 80 (34-104) U/L Troponin I High Sens 15.9 (0-20) pg/ml B-Natriuretic Peptide 496 H (0-100) pg/ml Total Protein 7.2 (6.0-8.3) gm/dl Albumin 3.9 (3.4-5.0) gm/dl Globulin 3.3 (2.5-4.0) gm/dl Albumin/Globulin Ratio 1.2 (0.9-2) Urine Color Yellow Urine Appearance Clear (Clear) Urine pH 6.5 (4.5-7.5) Ur Specific [place] 1.009 (1.000-1.030) Urine Protein Trace H (Negative) Urine Glucose (UA) Negative (Negative) Urine Ketones Negative (Negative) Urine Blood Negative (Negative) Urine Nitrite Negative (Negative) Urine Bilirubin Negative (Negative) Urine Urobilinogen Negative (Negative) Ur Leukocyte Esterase Negative (Negative) Urine WBC (Auto) 0-5 (0-5) /hpf Urine RBC (Auto) 0-2 (0-2) /hpf U Hyaline Cast (Auto) 0-2 (0-2) /lpf U Epithel Cells (Auto) 0-2 (0-2) /hpf Urine Bacteria (Auto) None Seen (None Seen) Adenovirus (PCR) Not Detected (NotDetected) B. pertussis DNA (PCR) Not Detected (NotDetected) B.parapertussis DNA PCR Not Detected (NotDetected) C. pneumoniae DNA (PCR) Not Detected (NotDetected) Coronavirus OC43 (PCR) Not Detected (NotDetected) Coronavirus HKU1 (PCR) Not Detected (NotDetected) Coronavirus 229E (PCR) Not Detected (NotDetected) SARS-CoV-2 (PCR) Cancelled Coronavirus NL63 (PCR) (NotDetected) Human Metapneumovir PCR (NotDetected) Influenza Type A (PCR) Influenza Type B (PCR) M. pneumoniae (PCR) (NotDetected) Parainfluenza 1 (PCR) (NotDetected) Parainfluenza 2 (PCR) (NotDetected) Parainfluenza 3 (PCR) (NotDetected) Parainfluenza 4 (PCR) (NotDetected) RSV (RT-PCR) RSV (PCR) (NotDetected) Entero/Rhino (PCR) (NotDetected) 04/01/24 04/01/24 04/01/24 Range/Units Unknown Unknown Unknown WBC (4.8-10.8) K/ul RBC (4.70-6.10) M/uL Hgb (14.0-18.0) g/dl Hct (42.0-52.0) % MCV (80.0-100.0) fL MCH (25.0-34.0) pg MCHC (32.0-36.0) g/dL RDW Std Deviation (36.4-46.3) fL RDW Coeff of Serene (11.5-14.5) % Plt Count (130-400) K/uL MPV (9.4-12.4) fL Immature Gran % (Auto) % Neut % (Auto) % Lymph % (Auto) % [place] % (Auto) % Eos % (Auto) % Baso % (Auto) % Neut # (Auto) (1.40-6.50) K/uL Lymph # (Auto) (1.20-3.40) K/uL [place] # (Auto) (0.11-0.59) K/uL Eos # (Auto) (0.00-0.50) K/uL Baso # (Auto) (0.00-0.20) K/uL Immature Gran # (Auto) (0.01-0.20) K/uL VBG pH (7.36-7.41) VBG pCO2 (38-50) mmHg VBG pO2 mmHg VBG HCO3 mmol/L VBG O2 Saturation % VBG Base Excess mEq/L Sodium (136-145) mmol/L Potassium (3.5-5.1) mmol/L Chloride (98-107) mmol/L Carbon Dioxide (21-32) mmol/L Anion Gap (3-11) BUN (6-23) mg/dl Creatinine (0.6-1.4) mg/dl Est Cr Clr Drug Dosing ml/min Est GFR ( Amer) ml/min Est GFR (Non-Af Amer) ml/min BUN/Creatinine Ratio (10-20) Glucose (70-99(Fasting)) mg/dl Calcium (8.6-10.3) mg/dl Total Bilirubin (0.2-1.0) mg/dl AST (13-39) U/L ALT (7-52) U/L Alkaline Phosphatase (34-104) U/L Troponin I High Sens (0-20) pg/ml B-Natriuretic Peptide (0-100) pg/ml Total Protein (6.0-8.3) gm/dl Albumin (3.4-5.0) gm/dl Globulin (2.5-4.0) gm/dl Albumin/Globulin Ratio (0.9-2) Urine Color Urine Appearance (Clear) Urine pH (4.5-7.5) Ur Specific [place] (1.000-1.030) Urine Protein (Negative) Urine Glucose (UA) (Negative) Urine Ketones (Negative) Urine Blood (Negative) Urine Nitrite (Negative) Urine Bilirubin (Negative) Urine Urobilinogen (Negative) Ur Leukocyte Esterase (Negative) Urine WBC (Auto) (0-5) /hpf Urine RBC (Auto) (0-2) /hpf U Hyaline Cast (Auto) (0-2) /lpf U Epithel Cells (Auto) (0-2) /hpf Urine Bacteria (Auto) (None Seen) Adenovirus (PCR) (NotDetected) B. pertussis DNA (PCR) (NotDetected) B.parapertussis DNA PCR (NotDetected) C. pneumoniae DNA (PCR) (NotDetected) Coronavirus OC43 (PCR) (NotDetected) Coronavirus HKU1 (PCR) (NotDetected) Coronavirus 229E (PCR) (NotDetected) SARS-CoV-2 (PCR) Not Detected Coronavirus NL63 (PCR) Not Detected (NotDetected) Human Metapneumovir PCR Not Detected (NotDetected) Influenza Type A (PCR) Cancelled Not Detected Influenza Type B (PCR) Cancelled Not Detected M. pneumoniae (PCR) Not Detected (NotDetected) Parainfluenza 1 (PCR) Not Detected (NotDetected) Parainfluenza 2 (PCR) Not Detected (NotDetected) Parainfluenza 3 (PCR) Not Detected (NotDetected) Parainfluenza 4 (PCR) Not Detected (NotDetected) RSV (RT-PCR) Cancelled RSV (PCR) Not Detected (NotDetected) Entero/Rhino (PCR) DETECTED A (NotDetected) Administered Medications Discontinued Medications Furosemide (Furosemide 40 Mg/4 Ml Vial) 40 mg IV ONE ONE Stop: 04/01/24 10:01 Last Admin: 04/01/24 10:12 Dose: 40 mg Documented By: MARTHA Hydralazine HCl (Hydralazine Hcl 25 Mg Tab) 25 mg PO NOW ONE Stop: 04/01/24 13:16 Last Admin: 04/01/24 13:39 Dose: 25 mg Documented By: MARTHA Isosorbide Mononitrate (Isosorbide [place] Extended Rel 60 Mg Tabcr) 60 mg PO NOW ONE Stop: 04/01/24 13:16 Last Admin: 04/01/24 13:38 Dose: 60 mg Documented By: MARTHA Multivitamins/Minerals (Cerovite Adv Formula Tab) 1 tab PO ONE ONE Stop: 04/01/24 13:16 Last Admin: 04/01/24 14:23 Dose: 1 tab Documented By: MARTHA Sodium Bicarbonate (Sodium Bicarbonate 650 Mg Tab) 650 mg PO NOW ONE Stop: 04/01/24 13:16 Last Admin: 04/01/24 13:38 Dose: 650 mg Documented By: MARTHA Imaging Data Radiologist's Impression: Chest X-Ray 04/01/24 08:16 SINGLE VIEW CHEST CLINICAL HISTORY: Dyspnea FINDINGS: An AP, portable, upright chest radiograph is compared to study dated 01/06/2024 and correlated with chest CT dated 01/03/2024. Surgical clips are noted in the lower neck. A hiatal hernia is noted The heart is enlarged noting atherosclerotic calcification of the thoracic aorta. Surgical clips project in the mediastinum. There is pulmonary vascular congestion. Emphysema and chronic interstitial thickening is similar to previous. There are right larger than left pleural effusions with dependent consolidation. No pneumothorax is seen. The skeletal structures are osteopenic. There are chronic/healed left-sided rib fractures. IMPRESSION: 1. Cardiomegaly and emphysema with evidence of congestive failure. 2. Right larger than left pleural effusions with dependent consolidation. 3. Hiatal hernia. ACT 112: Negative or not required by law. Electronically signed by: Rylan Ho M.D. 04/01/2024 8:47 AM Discharge Plan Visit Data Chief Complaint: Shortness of Breath/Dyspnea ED Provider: Russell Crump Discharge Problem: CHF (congestive heart failure), Pleural effusion Discharge Instructions Interventions: ED Discharge Assessment Last Done: 04/01/24 13:36 Forms Stand Alone Forms: [facility] Prescriptions Prescriptions: No Action ampda-xolichht-agr-turp-pet Ointment 1 ea TOPICAL DIRECTED PRN (Reason: Pain) Rx Instructions: apply to legs azelastine-fluticasone 137-50 mcg/spray spray,non-aerosol 2 spray INTRANASAL DIRECTED PRN (Reason: Nasal Congestion) lutein-zeaxanthin [Ocuvite Blue Light] 25-5 mg capsule 1 cap PO DAILY guaifenesin [Mucinex] 600 mg Tablet Extended Release 12hr 600 mg PO Q12H PRN (Reason: Congestion) atorvastatin 10 mg Tablet 10 mg PO HS clopidogrel 75 mg Tablet 75 mg PO HS allopurinol 100 mg Tablet 100 mg PO UD Rx Instructions: Take fri isosorbide mononitrate 60 mg Tablet Extended Release 24 Hr 60 mg PO QAM cholecalciferol (vitamin D3) [Vitamin D3] 50 mcg (2,000 unit) Tablet 50 mcg PO QAM aspirin 81 mg tablet,delayed release (DR/EC) 81 mg PO 3XWK Rx Instructions: Friday and Friday sodium bicarbonate 650 mg tablet 650 mg PO TID famotidine 20 mg tablet 20 mg PO BID hydralazine 25 mg Tablet 25 mg PO BID amlodipine 5 mg tablet 10 mg PO DAILY finasteride 5 mg Tablet 5 mg PO PM metoprolol succinate 50 mg Tablet Extended Release 24 Hr 75 mg PO PM Rx Instructions: Hold for SBP < 120 Hold for HR </equal to 60 Referrals Referrals: Lexis Jasso [Primary Care Provider] -
[2024-04-01 08:29] LABS: Base Excess VBG -1.1 mEq/L; HCO3 VBG 24 mmol/L; Oxygen Saturation VBG 84.8 %; PCO2 VBG 38 mmHg (38-50); PO2 VBG 52 mmHg
[2024-04-01 08:36] LABS: Basophils # (auto) 0.04 K/uL (0.00-0.20); Basophils % (auto) 0.6 %; Eosinophils % (auto) 9.7 %; Hematocrit (blood only) 30.4 % (42.0-52.0); Hemoglobin 9.9 g/dl (14.0-18.0); Immature Granulocytes # (auto) 0.05 K/uL (0.01-0.20); Immature Granulocytes % (auto) 0.8 %; Lymphocytes # (auto) 0.85 K/uL (1.20-3.40); Lymphocytes % (auto) 13.8 %; Mean Corpuscular Hemoglobin 31.3 pg (25.0-34.0); Mean Corpuscular Hgb Conc 32.6 g/dL (32.0-36.0); Mean Corpuscular Volume 96.2 fL (80.0-100.0); Mean Platelet Volume 10.1 fL (9.4-12.4); Monocytes # (auto) 0.47 K/uL (0.11-0.59); Monocytes % (auto) 7.6 %; Neutrophils # (auto) 4.16 K/uL (1.40-6.50); Neutrophils % (auto) 67.5 %; Platelet Count 218 K/uL (130-400); RDW Coefficient of Variation 13.6 % (11.5-14.5); RDW Standard Deviation 48.1 fL (36.4-46.3); Red Blood Count 3.16 M/uL (4.70-6.10); White Blood Count 6.17 K/ul (4.8-10.8)
--- NOTE | 2024-04-01 08:48 | XRay Report ---
SINGLE VIEW CHEST CLINICAL HISTORY: Dyspnea FINDINGS: An AP, portable, upright chest radiograph is compared to study dated 01/06/2024 and correlate d with chest CT dated 01/03/2024. Surgical clips are noted in the lower neck. A hiatal hernia is noted The heart is enlarged noting atherosclerotic calcification of the thoracic aorta. Surgical clips proj ect in the mediastinum. There is pulmonary vascular congestion. Emphysema and chronic interstitial th ickening is similar to previous. There are right larger than left pleural effusions with dependent co nsolidation. No pneumothorax is seen. The skeletal structures are osteopenic. There are chronic/heale d left-sided rib fractures. IMPRESSION: 1. Cardiomegaly and emphysema with evidence of congestive failure. 2. Right larger than left pleural effusions with dependent consolidation. 3. Hiatal hernia. ACT 112: Negative or not required by law. Electronically signed by: Rylan Ho M.D. 04/01/2024 8:47 AM
[2024-04-01 08:50] LABS: Albumin Globulin Ratio 1.2 (0.9-2); Albumin Level 3.9 gm/dl (3.4-5.0); BUN Creatinine Ratio 14.1 (10-20); Bilirubin,Total 0.5 mg/dl (0.2-1.0); Calcium 9.3 mg/dl (8.6-10.3); Creatinine Clr Calc Pharmacy 18.8 ml/min; Est GFR (African American) 23.9 ml/min; Est GFR (Non-African American) 20.7 ml/min; Globulin 3.3 gm/dl (2.5-4.0); Potassium 3.9 mmol/L (3.5-5.1); Total Protein 7.2 gm/dl (6.0-8.3)
[2024-04-01 08:56] LABS: Troponin I High Sensitivity 15.9 pg/ml (0-20)
[2024-04-01 09:59] LABS: Adenovirus PCR Not Detected (NotDetected); Bordetella parapertussis PCR Not Detected (NotDetected); Bordetella pertussis PCR Not Detected (NotDetected); Chlamydia pneumoniae PCR Not Detected (NotDetected); Coronavirus 229E PCR Not Detected (NotDetected); Coronavirus CoV-2 (COVID19)PCR Not Detected (NotDetected); Coronavirus HKU1 PCR Not Detected (NotDetected); Coronavirus NL63 PCR Not Detected (NotDetected); Coronavirus OC43PCR Not Detected (NotDetected); Human Metapneumovirus PCR Not Detected (NotDetected); Influenza A PCR Not Detected (NotDetected); Influenza B PCR Not Detected (NotDetected); Mycoplasma pneumoniae PCR Not Detected (NotDetected); Parainfluenza Virus 1 PCR Not Detected (NotDetected); Parainfluenza Virus 2 PCR Not Detected (NotDetected); Parainfluenza Virus 3 PCR Not Detected (NotDetected); Parainfluenza Virus 4 PCR Not Detected (NotDetected); Respiratory Syncytial VirusPCR Not Detected (NotDetected); Rhinovirus/Enterovirus PCR DETECTED (NotDetected)
[2024-04-01] MEDS: FUROSEMIDE 40 MG/4 ML VIAL IV ONE ×2 (10:12→17:11)
[2024-04-01] MEDS ORDERED: POLYETHYLENE (MIRALAX) 17 GM PACK PO PRN (11:40)
[2024-04-01] MEDS ORDERED: MAGNESIUM HYDROXIDE SUSP 30 ML UDC PO PRN (11:40)
[2024-04-01] MEDS ORDERED: ALUMINUM/MAGNESIUM SUSP 30 ML UDC PO PRN (11:40)
[2024-04-01] MEDS ORDERED: ONDANSETRON INJ 2 MG/ML 2 ML VIAL IV PRN (11:40)
[2024-04-01 11:49] LABS: Appearance Urine Clear (Clear); Bacteria Urine Automated None Seen (None Seen); Bilirubin Urine Negative (Negative); Blood Urine Negative (Negative); Cast Urine Automated 0-2 /lpf (0-2); Color Urine Yellow; Epithelial Cell Urine Auto 0-2 /hpf (0-2); Glucose Urine UA Negative (Negative); Ketones Urine Negative (Negative); Leukocyte Esterase Urine Negative (Negative); Nitrite Urine Negative (Negative); Protein Urine Trace (Negative); RBC Urine Automated 0-2 /hpf (0-2); Specific Gravity Urine 1.009 (1.000-1.030); Urobilinogen Urine Negative (Negative); WBC Urine Automated 0-5 /hpf (0-5); pH Urine 6.5 (4.5-7.5)
--- NOTE | 2024-04-01 12:03 | History & Physical Report ---
Date of Service April 01, 2024 Assessment & Plan (1) Acute heart failure with preserved ejection fraction: (2) SOB (shortness of breath): (3) Hypertensive urgency: (4) Flash pulmonary edema: (5) Hx of cancer of lung: (6) CAD (coronary atherosclerotic disease): (7) HTN (hypertension): (8) AAA (abdominal aortic aneurysm): Plan Mr. Pérez is an 84 year old male that presents to the ED from [facility] after experiencing acute onset of shortness of breath that started this morning when he went to the bathroom. EMS was called and he was placed on 10 L nonrebreather. Upon arrival to the ED he was able to be weaned off all oxygen. Patient does not wear any supplemental oxygen at baseline. Upon arrival patient hypertensive systolic 170s. Chest x-ray indicated cardiomegaly with emphysema and mild noted CHF. Right greater than left pleural effusions with consolidation. Lasix IV 40 mg given in ED with 300 mL output to start. Patient was recently admitted 01/02 to 01/11 for altered mental status and acute on chronic heart heart failure. Upon discharge he was noted to have hypotension and therefore his diuretic was held but appears was never restarted as an outpatient . No leukocytosis- BNP improved from January 12, 2015> 496. Creatinine 2.69; baseline 2.2-2.6. Incidentally tested positive for enterorhinovirus. Most recent ECHO 01/03/2024; EF 55 to 60% G1DDX, trace MR, mild TR. ECG today without signs of ischemia. Patient will be admitted for acute on chronic exacerbation of CHF with suspected flash pulmonary edema given the acute resolution of his symptoms. Additionally patient tested positive for rhinovirus; will treat supportively with flutter valve, ISB, Mucinex PRN. Hold on any antibiotics at this time given no leukocytosis and does not appear toxic. Will check procalcitonin and get PT/OT on board. Acute on chronic diastolic CHF: SOB: Acute BNP 496 Initially on 10 L NRB; wean down effectively, now on room air CXR: Cardiomegaly and emphysema with evidence of congestive failure. Right larger than left pleural effusions with dependent consolidation. Lasix 40 mg IV given in ED; administer another 40 mg at 1700 Continue Lasix 40 mg IV daily and reassess Indwelling Albert; remove as able to avoid additional Enterorhinovirus: Acute Tested positive in ED Droplet precautions Supportive tx with Flutter valve and ISB PT/OT ordered HTN: Chronic Takes amlodipine, Imdur, metoprolol; continue Heart Healthy diet CAD: AAA: Chronic Status post stent x 1 Takes aspirin plus Plavix; continue BPH: Chronic Takes finasteride; continue GERD: Chronic Takes famotidine; continue Disposition: PCP: [facility] CODE STATUS: DNR/DNI VTE prophylaxis: sc heparin I spent a total of 82 minutes coordinating, documenting, and providing care for this patient excluding time spent in the performance of separately billed services. All of the aforementioned completed while collaborating with the assigned attending physician for a full treatment plan. Please see their addendum for further details. History of Present Illness Chief Complaint: SOB Primary Care Provider: Lexis Jasso Mr. Pérez is an 84 year old male that presents to the ED from [facility] after experiencing acute onset of shortness of breath that started this morning when he went to the bathroom. EMS was called and he was placed on 10 L nonrebreather. Upon arrival to the ED he was able to be weaned off all oxygen. Patient does not wear any supplemental oxygen at baseline. Upon arrival patient hypertensive systolic 170s. Chest x-ray indicated cardiomegaly with emphysema and mild noted CHF. Right greater than left pleural effusions with consolidation. Lasix IV 40 mg given in ED with 300 mL output to start. Patient was recently admitted 01/02 to 01/11 for altered mental status and acute on chronic heart heart failure. Patient was discharged to [facility] is a new permanent resident. Upon discharge he was noted to have hypotension and therefore his diuretic was held but appears was never restarted as an outpatient. No leukocytosis- BMP improved from January 12, 2015> 496. Creatinine 2.69; baseline 2.2-2.6. Incidentally tested positive for entero and rhinovirus. Complex past medical history includes chronic diastolic CHF, CAD status post stent, AAA, PVD, history of carotid endarterectomy, history of lung cancer status post resection 7 to 8 years ago, CKD stage IV, anemia of chronic disease, HTN, HLD, and others. Most recent ECHO 01/03/2024; EF 55 to 60% G1DDX, trace MR, mild TR. ECG today without signs of ischemia. Currently patient AAO x 4 able to answer all questions in a meaningful manner and does not appear in any apparent distress. Patient denies headache, dizziness, visual or auditory changes, chest pain, palpitations, abdominal pain or tenderness, dysuria, urinary changes or bowel changes, nausea, vomiting, diarrhea, recent falls or trauma. Patient will be admitted for acute on chronic exacerbation of CHF with suspected flash pulmonary edema given the acute resolution of his symptoms. Additionally patient tested positive for rhinovirus; will treat supportively with flutter valve, ISB, Mucinex PRN. Hold on any antibiotics at this time given no leukocytosis and does not appear toxic. Will check procalcitonin and get PT/OT on board. Allergies Allergy/AdvReac Type Severity Reaction Status Date / Time Penicillins Allergy Intermediate Rash Verified 04/01/24 11:24 Home Medications Medication Instructions Recorded Confirmed Type allopurinol 100 mg tablet 100 mg PO UD 08/24/21 04/01/24 History atorvastatin 10 mg tablet 10 mg PO HS 08/24/21 04/01/24 History cholecalciferol (vitamin D3) 50 50 mcg PO QAM 08/24/21 04/01/24 History mcg (2,000 unit) tablet (Vitamin D3) clopidogrel 75 mg tablet 75 mg PO HS 08/24/21 04/01/24 History isosorbide mononitrate 60 mg 60 mg PO QAM 08/24/21 04/01/24 History tablet,extended release 24 hr azelastine 137 mcg-fluticasone 50 2 spray intranasal DIRECTED PRN 12/14/22 04/01/24 History mcg/spray nasal spray Nasal Congestion yvety-zmsrzaxy-lqg-turp-pet 1 ea topical DIRECTED PRN Pain 12/14/22 04/01/24 History topical ointment guaifenesin 600 mg tablet, 600 mg PO Q12H PRN Congestion 12/14/22 04/01/24 History extended release 12 hr (Mucinex) lutein 25 mg-zeaxanthin 5 mg 1 cap PO DAILY 12/14/22 04/01/24 History capsule (Ocuvite Blue Light) aspirin 81 mg tablet,delayed 81 mg PO 3XWK 01/02/24 04/01/24 History release famotidine 20 mg tablet 20 mg PO BID 01/02/24 04/01/24 History sodium bicarbonate 650 mg tablet 650 mg PO TID 01/02/24 04/01/24 History amlodipine 5 mg tablet 10 mg PO DAILY 04/01/24 04/01/24 History finasteride 5 mg tablet 5 mg PO PM 04/01/24 04/01/24 History hydralazine 25 mg tablet 25 mg PO BID 04/01/24 04/01/24 History metoprolol succinate 50 mg 75 mg PO PM 04/01/24 04/01/24 History tablet,extended release 24 hr Past Med/Surg History Medical History (Updated 04/01/24 @ 14:28 by Russell Crump DO) Flash pulmonary edema CKD (chronic kidney disease) stage 4, GFR 15-29 ml/min BPH (benign prostatic hyperplasia) Acute kidney injury superimposed on chronic kidney disease COVID-19 History of GI bleed 07/25/22, pt recently admitted to [facility] for gi bleed. pt "unsure of all the details, but know that I was anemic and had a couple pints of blood." Poor historian Hearing deficit bilat CORREA's Stomach ulcer pt "thinks it's gone now" Arthritis GERD (gastroesophageal reflux disease) Hx of cancer of lung Hx of gout Anemia recently admitted to [facility] for this TIA (transient ischemic attack) X 2 "a few years ago was last one" CAD (coronary atherosclerotic disease) "S/P LAD stent" HTN (hypertension) Surgical History History of colonoscopy History of tooth extraction History of tonsillectomy and adenoidectomy H/O heart artery stent X 4 (? DATE-"maybe 5 years ago" "LAST 2 STENTS PLACED AT [facility], OTHER 2 AT [facility]") S/P lobectomy of lung History of left-sided carotid endarterectomy H/O aortic aneurysm repair 2013 AT [facility] Family History Other No family history of adverse response to anesthesia No significant family history Social History Smoking Status: Former smoker Second Hand Exposure: No; Do You Dip or Chew Tobacco: No; Hx Alcohol Use: No Hx Substance Use: No Preferred Language: Tunisian Communication Ability: Effective Patient Support Associate Required: No Beliefs That Will Affect Care: Worship Current Living Situation: Alone Current Living Situation Comment: HAS A SUPPORT REPRESENTATIVE ASSISTS 3X PER WEEK How many Children do You have: 1 Feels Safe at Home: Yes Assistive Devices: Cane and Walker Review of Systems Review of Systems: Neuro: (-) Falls, trauma, slurred speech HEENT: (-) CORREA, dizziness, dysphagia, visual or auditory changes CV: (-) CP, palpitations, swelling Resp: (+) SOB GI: (-) appetite changes, N/V/D, bowel changes : (-) urinary changes Skin: (-) rashes Psych: (-) anxiety, depression Physical Exam Physical Exam: Neuro: AAOx4, PERRLA, no aphagia, memory changes, CNII-XII grossly intact HEENT: head normocephalic, moist mucus membranes CV: S1/S2, (-) M/G/R, (-) edema, cap refill < 3 seconds Resp: Lungs crackles R>L. on RA. GI: Abdomen S/NT/ND, Ax4 bowel sounds, (-) CVA tenderness Musculoskeletal: 5/5 B/L UE strength, 5/5 B/L LE strength. Uses a walker at baseline Skin: (-) rashes , (-) erythema. Psych: euthymic mood Results & Data Results & Data Vital Signs (Past 12 Hours) Vital Signs Temp Pulse Resp BP Pulse Ox O2 Del Method 04/01/24 08:34 83 04/01/24 08:16 80 20 95 Room Air 04/01/24 08:04 20 95 Room Air 04/01/24 08:04 95 Room Air 04/01/24 08:04 36.6 C 81 20 176/110 H 95 Room Air Laboratory Results Short CBC 04/01/24 Range/Units 08:13 WBC 6.17 (4.8-10.8) K/ul Hgb 9.9 L (14.0-18.0) g/dl Hct 30.4 L (42.0-52.0) % Plt Count 218 (130-400) K/uL BMP 04/01/24 08:13 Sodium 136 Potassium 3.9 Chloride 105 Carbon Dioxide 23 BUN 38 H Creatinine 2.69 H Glucose 106 H Calcium 9.3 Liver Function 04/01/24 Range/Units 08:13 Total Bilirubin 0.5 (0.2-1.0) mg/dl AST 11 L (13-39) U/L ALT 10 (7-52) U/L Alkaline Phosphatase 80 (34-104) U/L Albumin 3.9 (3.4-5.0) gm/dl Urine 04/01/24 Range/Units 10:00 Urine Color Yellow Urine Appearance Clear (Clear) Urine pH 6.5 (4.5-7.5) Ur Specific Edson 1.009 (1.000-1.030) Urine Protein Trace H (Negative) Urine Glucose (UA) Negative (Negative) Diagnostic Findings Chest X-Ray 04/01/24 08:16 SINGLE VIEW CHEST CLINICAL HISTORY: Dyspnea FINDINGS: An AP, portable, upright chest radiograph is compared to study dated 01/06/2024 and correlated with chest CT dated 01/03/2024. Surgical clips are noted in the lower neck. A hiatal hernia is noted The heart is enlarged noting atherosclerotic calcification of the thoracic aorta. Surgical clips project in the mediastinum. There is pulmonary vascular congestion. Emphysema and chronic interstitial thickening is similar to previous. There are right larger than left pleural effusions with dependent consolidation. No pneumothorax is seen. The skeletal structures are osteopenic. There are chronic/healed left-sided rib fractures. IMPRESSION: 1. Cardiomegaly and emphysema with evidence of congestive failure. 2. Right larger than left pleural effusions with dependent consolidation. 3. Hiatal hernia. ACT 112: Negative or not required by law. Electronically signed by: Rylan Ho M.D. 04/01/2024 8:47 AM Code Status & VTE Plan Code Status DNR/DNI in the event of cardiac or respiratory arrest VTE Prophylaxis Plan VTE Prophylaxis will be ordered: Yes Supervising Physician Co-Signing Physician Notes Patient was seen and examined independently at bedside. Chart reviewed. Case discussed with Fannie PEOPLES and agree with the documentation above. In summary, this is a 84 year old male who presented to the ED with acute worsening of his SOB. Reports dyspnea on exertion for weeks but acutely worsened today. Found to have acute diastolic CHF with suggestive CXR, elevated BNP. Also noted to be rhino virus positive. Recent echo reviewed. On room air during my encounter but somewhat conversationally dyspneic. Had good response to iv lasix in ED and minimal crackles during my exam along with trace LE edema. Albert with clear urine. HS regular, abd soft and benign. AAO and conversing well. Will give 1 more dose of lasix today and start on iv lasix 40 mg daily from tomorrow shanna horn. Daily weight, I and OS. Monitor renal function (CKD4) and electrolytes. Can consider repeating CXR after adequate diuresis. If persistent effusion, might need thoracentesis. Rest as per the note above.
[2024-04-01] MEDS ORDERED: guaiFENesin 600 MG TABCR PO PRN (12:49)
[2024-04-01] MEDS: SODIUM BICARBONATE 650 MG TAB PO ONE (13:38)
[2024-04-01] MEDS: ISOSORBIDE MONO EXTENDED REL 60 MG TABCR PO ONE (13:38)
[2024-04-01] MEDS: hydrALAZINE HCL 25 MG TAB PO ONE (13:39)
[2024-04-01] MEDS: CEROVITE ADV FORMULA TAB PO ONE (14:23)
[2024-04-01] MEDS ORDERED: AZELASTINE HCL 0.1% NASAL 200 SPRAYS/27,400 MCG BTL NAE PRN (14:33)
[2024-04-01] MEDS: ALBUT/IPRATROP 3MG/0.5MG NEB 3 ML VIAL NEB SCH (14:34)
[2024-04-01] MEDS ORDERED: FLUTICASONE PROPIONATE NA SPR 16 GM BTL NAE PRN (14:35)
[2024-04-01] MEDS: SODIUM BICARBONATE 650 MG TAB PO SCH (20:50)
[2024-04-01] MEDS: METOPROLOL SUCC 25MG EXT REL TAB PO SCH (20:51)
[2024-04-01] MEDS: hydrALAZINE HCL 25 MG TAB PO SCH (20:52)
[2024-04-01] MEDS: FAMOTIDINE 20 MG TAB PO SCH (20:52)
[2024-04-01] MEDS: FINASTERIDE 5 MG TAB PO SCH (20:52)
[2024-04-01] MEDS: CLOPIDOGREL BISULFATE 75 MG TAB PO SCH (20:53)
[2024-04-01] MEDS: ATORVASTATIN 10 MG TAB PO SCH (20:53)
[2024-04-01] MEDS: ACETAMINOPHEN 325 MG TAB PO PRN (22:29)
[2024-04-02 06:35] LABS: Hematocrit (blood only) 26.4 % (42.0-52.0); Mean Corpuscular Hemoglobin 31.9 pg (25.0-34.0); Mean Corpuscular Hgb Conc 34.1 g/dL (32.0-36.0); Mean Corpuscular Volume 93.6 fL (80.0-100.0); Mean Platelet Volume 10.4 fL (9.4-12.4); Platelet Count 200 K/uL (130-400); RDW Coefficient of Variation 13.6 % (11.5-14.5); RDW Standard Deviation 46.6 fL (36.4-46.3); Red Blood Count 2.82 M/uL (4.70-6.10); White Blood Count 5.55 K/ul (4.8-10.8)
[2024-04-02 06:57] LABS: BUN Creatinine Ratio 13.9 (10-20); Calcium 9.2 mg/dl (8.6-10.3); Creatinine Clr Calc Pharmacy 17.1 ml/min; Est GFR (African American) 21.4 ml/min; Est GFR (Non-African American) 18.5 ml/min; Magnesium 2.2 mg/dl (1.7-2.4); Potassium 3.8 mmol/L (3.5-5.1)
[2024-04-02] MEDS: ASPIRIN 81 MG ECTAB PO SCH (08:37)
[2024-04-02] MEDS: CHOLECALCIFEROL 25 MCG (1000 UNITS) TAB PO SCH (08:37)
[2024-04-02] MEDS: ISOSORBIDE MONO EXTENDED REL 60 MG TABCR PO SCH (08:37)
[2024-04-02] MEDS: CEROVITE ADV FORMULA TAB PO SCH (08:37)
[2024-04-02] MEDS: amLODIPine BESYLATE 5 MG TAB PO SCH (08:38)
[2024-04-02] MEDS: FUROSEMIDE 40 MG/4 ML VIAL IV SCH (08:38)
[2024-04-02] MEDS: allopurinoL 100 MG TAB PO SCH (08:42)
[2024-04-02] MEDS ORDERED: ALBUT/IPRATROP 3MG/0.5MG NEB 3 ML VIAL NEB PRN (11:15)
--- NOTE | 2024-04-02 16:23 | Hospitalist Progress Note ---
Date of Service April 02, 2024 Assessment & Plan (1) Acute heart failure with preserved ejection fraction: (2) SOB (shortness of breath): (3) Hypertensive urgency: (4) Flash pulmonary edema: (5) Hx of cancer of lung: (6) CAD (coronary atherosclerotic disease): (7) HTN (hypertension): (8) AAA (abdominal aortic aneurysm): Plan Mr. Pérez is an 84 year old male that presents to the ED from [facility] after experiencing acute onset of shortness of breath that started this morning when he went to the bathroom. EMS was called and he was placed on 10 L nonrebreather. Upon arrival to the ED he was able to be weaned off all oxygen. Patient does not wear any supplemental oxygen at baseline. Upon arrival patient hypertensive systolic 170s. Chest x-ray indicated cardiomegaly with emphysema and mild noted CHF. Right greater than left pleural effusions with con solidation. Lasix IV 40 mg given in ED with 300 mL output to start. Patient was recently admitted 01/02 to 01/11 for altered mental status and acute on chronic heart heart failure. Upon discharge he was noted to have hypotension and therefore his diuretic was held but appears was never restarted as an outpatient. No leukocytosis- BNP improved from January 12, 2015> 496. Creatinine 2.69; baseline 2.2-2.6. Incidentally tested positive for enterorhinovirus. Most recent ECHO 01/03/2024; EF 55 to 60% G1DDX, trace MR, mild TR. ECG today without signs of ischemia. Patient will be admitted for acute on chronic exacerbation of CHF with suspected flash pulmonary edema given the acute resolution of his symptoms. Additionally patient tested positive for rhinovirus; will treat supportively with flutter valve, ISB, Mucinex PRN. Hold on any antibiotics at this time given no leukocytosis and does not appear toxic. Acute on chronic diastolic CHF: Acute on chronic respiratory failure secondary to above -Initially on 10 L NRB--weaned off of supplemental oxygen --CXR: Cardiomegaly and emphysema with evidence of congestive failure. Right larger than left pleural effusions with dependent consolidation. --BNP 496 Received IV Lasix Clinically already showing improvement Continue metoprolol, isosorbide Also on hydralazine No LATHA ARB given renal insufficiency Reassess volume status tomorrow for further diuresis Monitor I's and O's, daily weight, volume status Currently saturating well on room air Entero/Rhinovirus: Bio fire positive for rhinovirus Droplet precautions Supportive tx with Flutter valve and IS Normal procalcitonin PT/OT as able CELESTE on CKD stage IV Baseline creatinine ~ 2.6 Monitor renal function Avoid nephrotoxic agents as able HTN: Chronic Continue amlodipine, Imdur, metoprolol, hydralazine Monitor BP CAD: AAA: Chronic Status post stent x 1 Continue aspirin, Plavix, metoprolol, statin BPH: Continue finasteride; continue GERD: Continue Famotidine DVT Px: Heparin SQ CODE STATUS: DNR/DNI Disposition PT OT prior to discharge Admission and Anticipated Discharge Date Admission Date: April 01, 2024 Subjective Patient is seen and examined at bedside Dyspnea much improved Admits to have minimal cough No other complaints Denies any chest pain, dizziness, nausea, vomiting, abdominal pain Review of Systems Review of Systems: All systems reviewed & are unremarkable except as noted in Subjective Physical Exam Physical Exam: Physical Exam: Vitals signs as noted above General Appearance:Moderately built and nourished, no apparent distress, Elderly Head: normocephalic, Atraumatic Eyes: normal inspection, EOMI Neck: supple, Trachea midline Respiratory/Chest: Decreased breath sounds, CTA, No accessory muscle use Cardiovascular: S1, S2, +murmur Abdomen/GI:Soft, Non tender, Bowel sounds present Extremities/Musculoskeletal:normal inspection, 1+ pedal edema Neurologic/Psych:AAOX3, grossly no focal neurological deficits Skin: normal color, warm Results & Data Results & Data Vital Signs (Past 12 Hours) Vital Signs Temp Pulse Pulse Pulse Resp BP Pulse Ox 04/02/24 15:36 81 04/02/24 14:44 36.5 C 78 18 138/78 96 04/02/24 11:12 36.6 C 82 18 143/83 H 95 04/02/24 07:39 36.6 C 47 L 18 155/72 H 95 04/02/24 07:20 79 12 94 04/02/24 07:15 72 O2 Del Method FiO2 04/02/24 15:36 04/02/24 14:44 Room Air 04/02/24 11:12 Room Air 04/02/24 07:39 Room Air 04/02/24 07:20 Room Air 21 04/02/24 07:15 Laboratory Results Short CBC 04/02/24 Range/Units 05:21 WBC 5.55 (4.8-10.8) K/ul Hgb 9.0 L (14.0-18.0) g/dl Hct 26.4 L (42.0-52.0) % Plt Count 200 (130-400) K/uL BMP 04/02/24 05:21 Sodium 138 Potassium 3.8 Chloride 104 Carbon Dioxide 25 BUN 41 H Creatinine 2.95 H Glucose 97 Calcium 9.2
[2024-04-03 06:46] LABS: Calcium 9.4 mg/dl (8.6-10.3); Creatinine Clr Calc Pharmacy 14.7 ml/min; Est GFR (African American) 17.8 ml/min; Est GFR (Non-African American) 15.4 ml/min; Magnesium 2.3 mg/dl (1.7-2.4); Potassium 3.7 mmol/L (3.5-5.1)
[2024-04-03 06:48] LABS: Hematocrit (blood only) 29.7 % (42.0-52.0); Hemoglobin 9.9 g/dl (14.0-18.0); Mean Corpuscular Hemoglobin 31.6 pg (25.0-34.0); Mean Corpuscular Hgb Conc 33.3 g/dL (32.0-36.0); Mean Corpuscular Volume 94.9 fL (80.0-100.0); Mean Platelet Volume 10.1 fL (9.4-12.4); Platelet Count 208 K/uL (130-400); RDW Coefficient of Variation 13.6 % (11.5-14.5); RDW Standard Deviation 46.8 fL (36.4-46.3); Red Blood Count 3.13 M/uL (4.70-6.10); White Blood Count 5.93 K/ul (4.8-10.8)
--- NOTE | 2024-04-03 07:12 | XRay Report ---
SINGLE VIEW CHEST CLINICAL HISTORY: Follow-up congestive failure. FINDINGS: An AP, portable, upright chest radiograph is compared to study dated 04/01/2024 and correlate d with chest CT dated 01/03/2024. Surgical clips are noted in the lower neck. There is a hiatal hernia. The heart is enlarged noting atherosclerotic calcification of the thoracic aorta. Surgical clips pro ject in the mediastinum. There is mild pulmonary vascular congestion. This has improved from previous . Emphysema and chronic interstitial thickening is unchanged. There are small pleural effusions, left larger than right with dependent consolidation. No pneumothorax is seen. The skeletal structures are osteopenic. There are chronic/healed left-sided rib fractures. IMPRESSION: 1. Cardiomegaly and emphysema. Pulmonary vascular congestion has improved from 04/01/2024. 2. Small pleural effusions. These also appear decreased from previous. 3. Hiatal hernia. ACT 112: Negative or not required by law. Electronically signed by: Rylan Ho M.D. 04/03/2024 7:11 AM
--- OUTSIDE RECORDS SUMMARY | 2024-04-03 08:40 | External Medical Summary | Summary of Care ---
Author Name Unknown Organization [facility] Address [address] [address] Phone [phone] Care Team Providers Care Pit Hoist Operator Name Role Phone Aura Jasso MD Primary Care Provider [phone] Reason for Visit * Reason Comments Outpatient Testing Encounter Details Date Type Department Care Team (Late st Contact Info) Description 02/19/2024 8:15 AM EDT Laboratory Laboratory [address] [place] [id number] , Specimen Drop Off [address] [place] [id number] Kidney disease, chronic, stage III (GFR 30-59 ml/min) ([facility]) Allergies Active Allergy Reactions Criticality Noted Date Comments Lisinopril Cough Medium 05/25/2023 Penicillin G Rash 04/21/2012 documented as of this encounter (statuses as of 02/19/2024) Medications Medication Sig Dispensed Refills Start Date [...] as of this encounter (statuses as of 02/19/2024) Active Problems Problem Noted Date Diagnosed Date Chronic kidney disease, stage 4 (severe) 023 Overview: Per CKD protocol AAA (abdominal aortic aneurysm) 12/28/2015 Overview: 3.8 cm 05/12/14 Malignant neoplasm of upper lobe, 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 documented as of this encounter (statuses as of 02/19/2024) Resolved Problems Problem Noted Date Diagnosed Date Resolved Date Chronic kidney disease, stage 3b 06/09/2023 08/14/2023 Overview: Per CKD protocol documented as of this encounter (statuses as of 02/19/2024) Immunizations Name Administration Dates Next Due Seasonal Influenza, Quadrivalent Hd (Fluzone Hd) 09/01/2021 documented as of this encounter Social History Tobacco Use Types Packs/Day Years Used Date Smoking Tobacco: Former Cigarettes Pipe Cigars Smokeless Tobacco: Former Comments:quit in 1969's Alcohol Use Standard Drinks/Week Comments Not Currently 0 (1 standard drink = 0.6 oz pur e alcohol) Hunger Vital Sign Answer Date Recorded Within the past 12 months, y ou worried that your food would run out before you got the money to buy more. Never true 05/19/20 23 Within the past 12 months, t he food you bought just didn't last and you didn't have money to get more. Never true 05/19/2023 Sex and Gender Information Value Date Recorded Sex Assigned at Not on file Gender Identity Not on file Sexual Orientation Not on file Job Start Date Occupation Industry Not on file Not on file Not on file documented as of this encounter Plan of Treatment Pending Results Name Type Priority Associated Diagnoses Date /Time COMPREHENSIVE METABOLIC PANEL Lab Routine Kidney disease, chronic, stage III (GFR 30-59 ml/min) ([facility]) 02/19/2024 7:50 AM EDT CBC Lab Routine Kidney disease, chronic, stage III (GFR 30-59 ml/min) ([facility]) 02/19/2024 7:50 AM EDT Health Maintenance Due Date Last Done Comments Depression Screening 1952 DTaP,Tdap,and Td Vaccines (1 - Tdap) 1958 Zoster Vaccines (1 of 2) 1989 Influenza Vaccine (FLU shot) (#1) 2023 09/01/2021 AAA Monitoring 08/21/2024 08/21/2023, 08/0 12/2021, 01/27/2017, Additional history exists Albumin/Creatinine Ratio 02/04/2025 024, 08/15/2023, 05/06/2023 COVID-19 Vaccine Completed 09/12/2023 Pneumococcal Vaccine: 65+ Years Completed 10/29/2023 GARDASIL-HPV IMMUNIZATION SERIES Aged Out No longer [...] as of this encounter Visit Diagnoses Diagnosis Kidney disease, chronic, stage III (GFR 30-59 ml/min) (HCC) Chronic kidney disease, Stage III (moderate) documented in this encounter Care Teams Pit Hoist Operator Relationship Specialty Start Date End Date Aura Jasso MD [address] [place] [address] [place] [id number] PCP - General 01/16/01 documented as of this encounter
--- OUTSIDE RECORDS SUMMARY | 2024-04-03 08:40 | External Medical Summary | Summary of Care ---
Author Name Unknown Organization [facility] Address [address] [place] [address] Phone [phone] Care Team Providers Care Mold Stripper Name Role Phone Aura Jasso MD Primary Care Provider [phone] Reason for Visit * Reason Onset Date Comments STAIR AAA 03/11/2024 Encounter Details Date Type Department Care Team (Late st Contact Info) Description 03/11/2024 Telephone STAIR AAA [address] [place], [place] [id number] Program, Stair [address] [place] [address] STAIR AAA Allergies Active Allergy Reactions Criticality Noted Date Comments Lisinopril Cough Medium 05/25/2023 Penicillin G Rash 04/21/2012 documented as of this encounter (statuses as of 03/11/2024) Medications Medication Sig Dispensed Refills Start Date [...] as of this encounter (statuses as of 03/11/2024) Active Problems Problem Noted Date Diagnosed Date Chronic kidney disease, stage 4 (severe) 023 Overview: Per CKD protocol AAA (abdominal aortic aneurysm) 12/28/2015 Overview: 3.8 cm 05/12/14 Malignant neoplasm of upper lobe, 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 documented as of this encounter (statuses as of 03/11/2024) Resolved Problems Problem Noted Date Diagnosed Date Resolved Date Chronic kidney disease, stage 3b 06/09/2023 08/14/2023 Overview: Per CKD protocol documented as of this encounter (statuses as of 03/11/2024) Immunizations Name Administration Dates Next Due Seasonal [...] on file documented as of this encounter Miscellaneous Notes * Telephone Encounter - Shanna Quiros LPN - 03/11/2024 11:24 AM EDT Images from the original note were not included. AAA - Clinical Summary Name: Levi Pérez Age: [age] year old AAA Review: Initial Follow-up Encounter Provider: N/A Patient Identified by: Problem List Report Imaging Interpretation: Ultrasound Type of Result: AAA >= 5 cm AAA Care Plan Imaging Recommendation: No Imaging needed. Details: None AAA Care Plan Visit Recommendation: New Urgent Referral to Vascular Surgery Details: None Next steps: Letter sent to non-[facility] PCP. Time spent: 10 minutes Shanna Quiros LPN Coordinator DEBI (System to Track Abnormalities of Importance Reliably) US-AORTA Order: [id number] Status: Final result Visible to patient: Yes (not seen) Next appt: None 0 Result Notes 1 Topic Details Reading Physician Reading Date Result Priority Ignacio Mccann MD [phone] 01/27/2017 Narrative & Impression EXAM US AORTA/RENAL LIMITED-01/27/2017 9:26 am HISTORY ABDOMINAL AORTIC ANEURYSM, WITHOUT RUPTURE COMPARISON A prior aortic sonogram performed on a 05/12/2014. TECHNIQUE Aortic sonography was performed. FINDINGS A fusiform abdominal aortic aneurysm is again identified in an infrarenal location with current maximal cross-sectional dimensions in the mid abdominal aorta of 5.2 x 5.6 cm. This aneurysm is significantly increased in size from previously in which it measured in the order of 3.8 x 3.8 cm. No periaortic fluid collections are identified. The distal abdominal aorta measures 4.7 x 3.9 cm. The proximal abdominal aorta measures 3.3 x 2.8 cm. Both common iliac arteries are ectatic with the right measuring 1.0 x 1.9 cmand the left measuring 1.0 x 1.8 cm. Atherosclerotic changes are present in the aorta along with some muralthrombus. IMPRESSION Significant interval increase in size of an abdominal aortic aneurysm currently measuring upwards to 5.6 cm in diameter, increased from previously in which it measured 3.8 cm. documented in this encounter Plan of Treatment Health Maintenance Due Date Last Done Comments Depression Screening 1952 Hgb 1957 DTaP,Tdap,and Td Vaccines (1 - Tdap) 1958 Zoster Vaccines (1 of 2) 1989 Nephrology Referral 05/13/2024 05/13/2023 Influenza Vaccine (FLU shot) (Season Ended) 2024 09/01/2021 PTH 08/15/2024 08/15/2023, 05/13/2023 Phosphate 08/15/2024 08/15/2023, 05/2018, 08/13/2013 AAA Monitoring 08/21/2024 08/21/2023, 080 12/2021, 01/27/2017, Additional history exists Albumin/Creatinine Ratio [...] filedocumented as of this encounter Care Teams Mold Stripper Relationship Specialty Start Date End Date Aura Jasso MD [address] [place] [address] [place] [id number] PCP - General 01/16/01 documented as of this encounter
--- OUTSIDE RECORDS SUMMARY | 2024-04-03 08:40 | External Medical Summary ---
Author Name Unknown Address Unknown Organization [id number]:[place] [facility] [place] [address] [facility] [address] [facility] [address] Laboratory Report Ordering Provider Test Date Status KWAN BLANCA 02/19/2024 07:50:59 Final Observation Date Value Abnormality Reference (Units ) Status WBC, Total 02/19/2024 07:50:59 4.89 4.00-10.80 (K/uL) Final RBC 02/19/2024 07:50:59 3.00 4.50-5.25 (M/uL) Final Hemoglobin 02/19/2024 07:50:59 9.7 Below low normal 14.0-16.8 (g/dL) Final HCT 02/19/2024 07:50:59 30.1 Below low normal 40.0-48.4 (%) Final MCV 02/19/2024 07:50:59 100.3 82.0-99.5 (fL) Final MCH 02/19/2024 07:50:59 32.3 27.0-34.0 (pg) Final MCHC 02/19/2024 07:50:59 32.2 32.0-36.0 (g/dL) Final RDW 02/19/2024 07:50:59 14.4 11.5-15.5 (%) Final Platelets 02/19/2024 07:50:59 208 140-400 (K/uL) Final MPV 02/19/2024 07:50:59 10.3 6.6-11.1 (fL) Final Nucleated erythrocytes/100 leukocytes [Ratio] in Blood by Automated count 02/19/2024 07:50:59 0 <=0 (/100 WBCs) Final Performing Location LABORATORY C - [address] [place] [address]
--- OUTSIDE RECORDS SUMMARY | 2024-04-03 08:40 | External Medical Summary ---
Author Name Unknown Address Unknown Organization [id number]:LABORATORY [facility] [address] - [address] [place] [id number] Laboratory Report Ordering Provider Test Date Status KWAN BLANCA 02/05/2024 06:12:00 Final Observation Date Value Abnormality Reference (Units ) Status WBC, Total 02/05/2024 06:12:00 4.71 4.00-10.8 0 (K/uL) Final RBC 02/05/2024 06:12:00 3.05 4.50-5.25 (M/uL) Final Hemoglobin 02/05/2024 06:12:00 10.0 Below low normal 14 .0-16.8 (g/dL) Final HCT 02/05/2024 06:12:00 30.7 Below low normal 40. 0-48.4 (%) Final MCV 02/05/2024 06:12:00 100.7 82.0-99.5 (fL) Final MCH 02/05/2024 06:12:00 32.8 27.0-34.0 (pg) Final MCHC 02/05/2024 06:12:00 32.6 32.0-36.0 (g/dL) Final RDW 02/05/2024 06:12:00 13.8 11.5-15.5 (%) Final Platelets 02/05/2024 06:12:00 156 140-400 (K /uL) Final MPV 02/05/2024 06:12:00 9.9 6.6-11.1 ( fL) Final Performing Location LABORATORY [facility] [address] - [address] [place] [id number]
--- OUTSIDE RECORDS SUMMARY | 2024-04-03 08:40 | External Medical Summary | Summary of Care ---
Author Name Unknown Organization [facility] Address [address] [facility] [address] Phone [phone] Care Team Providers Care Logistics/Shipper Name Role Phone Aura Jasso MD Primary Care Provider [phone] Reason for Visit * Reason Comments Outpatient Testing Encounter Details Date Type Department Care Team (Late st Contact Info) Description 02/19/2024 8:15 AM EDT Laboratory Laboratory [address] [place] [id number] , Specimen Drop Off [address] [place] [address] Kidney disease, chronic, stage III (GFR 30-59 ml/min) ([facility]) Allergies Active Allergy Reactions Criticality Noted [...] disease, chronic, stage III (GFR 30-59 ml/min) ([facility]) 02/19/2024 7:50 AM EDT CBC Lab Routine Kidney disease, chronic, stage III (GFR 30-59 ml/min) ([facility]) 02/19/2024 7:50 AM EDT Health Maintenance [...] (moderate) documented in this encounter Care Teams Logistics/Shipper Relationship Specialty Start Date End Date Aura Jasso MD [address] [place] [address] [place] [id number] PCP - General 01/16/01 documented as of this encounter
--- OUTSIDE RECORDS SUMMARY | 2024-04-03 08:40 | External Medical Summary ---
Author Name Unknown Address Unknown Organization K0G:LABORATORY [facility] [address] - [address] [place] [address] Laboratory Report Ordering Provider Test Date Status KWAN BLANCA 03/04/2024 06:10:00 Final Observation Date Value Abnormality Reference (Units ) Status BUN 03/04/2024 06:10:00 43 Above high normal 6-20 (mg/dL) Final Creatinine 03/04/2024 06:10:00 2.6 Above high normal 0.6-1.2 (mg/dL) Final Glomerular filtration rate/1.73 sq M.predicted [Volume Rate/Area] in Serum, Plasma or Blood by Creatinine-based formula (CKD-EPI) 03/04/2024 06:10:00 23 Below low normal >=60 (mL/min) Final eGFR is calculated based on the CKD-EPI 2020 equation Sodium 03/04/2024 06:10:00 137 135-146 (m mol/L) Final Potassium 03/04/2024 06:10:00 4.5 3.5-5.1 (m mol/L) Final Cl 03/04/2024 06:10:00 105 98-107 (mm ol/L) Final CO2 03/04/2024 06:10:00 22 22-32 (mmo l/L) Final Anion gap 03/04/2024 06:10:00 10 7-15 (mmol /L) Final Glucose 03/04/2024 06:10:00 93 70-120 (mg /dL) Final Calcium 03/04/2024 06:10:00 9.3 8.4-10.2 ( mg/dL) Final Performing Location LABORATORY [facility] [address] [place] [id number]
--- OUTSIDE RECORDS SUMMARY | 2024-04-03 08:40 | External Medical Summary ---
Author Name Unknown Address Unknown Organization K0G:LABORATORY [facility] [place] [address] - [address] [place] [address] Laboratory Report Ordering Provider Test Date Status KWAN BLANCA 03/04/2024 06:10:00 Final Observation Date Value Abnormality Reference (Units ) Status WBC, Total 03/04/2024 06:10:00 4.95 4.00-10.8 0 (K/uL) Final RBC 03/04/2024 06:10:00 2.84 4.50-5.25 (M/uL) Final Hemoglobin 03/04/2024 06:10:00 9.2 Below low normal 14 .0-16.8 (g/dL) Final HCT 03/04/2024 06:10:00 28.5 Below low normal 40. 0-48.4 (%) Final MCV 03/04/2024 06:10:00 100.4 82.0-99.5 (fL) Final MCH 03/04/2024 06:10:00 32.4 27.0-34.0 (pg) Final MCHC 03/04/2024 06:10:00 32.3 32.0-36.0 (g/dL) Final RDW 03/04/2024 06:10:00 13.6 11.5-15.5 (%) Final Platelets 03/04/2024 06:10:00 179 140-400 (K /uL) Final MPV 03/04/2024 06:10:00 10.4 6.6-11.1 ( fL) Final Performing Location LABORATORY [facility] [place] [address] [place] [address]
--- OUTSIDE RECORDS SUMMARY | 2024-04-03 08:40 | External Medical Summary | Continuity Of Care Document ---
Author Name Unknown Address [address] [place] [address] Organization [facility] ( ) Care Team Providers Care Parts Puller Name Role Phone Aura Jasso Primary Care Provider [phone] Allergies Allergy Reaction Start Date End Date Status PENICILLINS Active VITAL SIGNS Date Time Diastolic blood pressure Systolic blood pressure Body height Body weight Temperature SpO2 Blood Sugar Pulse Respirations 98652 211 01435 4 94.00 mm[Hg] - Sitting 184.00 mm[Hg] - Sitting 97.00 X-Other 96.00 % 95.00/ min 18.00/min 56488 211 58028 3 68 NI 137.00 NI 08380 211 55008 4 52398 211 41050 4 25921 212 56639 2 68 NI 80919 212 32149 1 140.00 NI 80491 212 73845 6 81.00 mm[Hg] - Sitting 128.00 mm[Hg] - Sitting 97.20 Ear 94.00 % 112.00 /min 18.00/min 47479 212 44952 5 81.00 mm[Hg] - Sitting 128.00 mm[Hg] - Sitting 97.20 Oral 112.00 /min 18.00/min 06228 212 55750 0 81.00 mm[Hg] - Lying Down 128.00 mm[Hg] - Lying Down 97.20 Ear 112.00 /min 18.00/min 33515 213 30030 1 98.00 mm[Hg] - Sitting 170.00 mm[Hg] - Sitting 96.80 Oral 96.00 % 88.00/ min 18.00/min 08161 213 47351 5 144.00 NI 02584 213 84489 2 95536 213 70419 5 98.00 mm[Hg] - Sitting 170.00 mm[Hg] - Sitting 96.80 Oral 88.00/ min 18.00/min 55238 214 19186 9 98.00 mm[Hg] - Lying Down 170.00 mm[Hg] - Lying Down 96.80 Ear 88.00/ min 18.00/min 94621 214 06028 6 144.00 NI 29489 214 95476 0 106.00 mm[Hg] - Sitting 186.00 mm[Hg] - Sitting 97.00/ min 18.00/min 35195 214 13486 4 99.00 mm[Hg] - Sitting 169.00 mm[Hg] - Sitting 98.40 Oral 94.00 % 111.00 /min 18.00/min 29448 215 79289 2 144.00 NI 22930 215 21735 8 112.00 mm[Hg] - Sitting 116.00 mm[Hg] - Sitting 97.40 Oral 96.00 % 97.00/ min 18.00/min 60712 217 92548 6 106.00 mm[Hg] - Sitting 167.00 mm[Hg] - Sitting 93.00/ min 14256 217 73605 3 93.00 mm[Hg] - Sitting 160.00 mm[Hg] - Sitting 97.30 Ear 97.00 % 102.00 /min 20.00/min 80978 217 67895 0 94.00 mm[Hg] - Sitting 155.00 mm[Hg] - Sitting 97.30 Ear 93.00 % 87.00/ min 18.00/min 28576 217 04126 9 117.00 mm[Hg] - Sitting 162.00 mm[Hg] - Sitting 96095 218 91490 1 118.00 mm[Hg] - Lying Down 182.00 mm[Hg] - Lying Down 98.20 Ear 97.00 % 81.00/ min 18.00/min 02446 218 27713 1 142.00 NI 07541 218 53350 0 142.00 NI 02208 218 07374 0 90.00 mm[Hg] - Sitting 155.00 mm[Hg] - Sitting 97.20 Oral 96.00 % 85.00/ min 22116 218 67438 0 93.00 mm[Hg] - Sitting 145.00 mm[Hg] - Sitting 08765 219 22003 8 143.00 NI 56323 219 08723 5 91.00 mm[Hg] - Sitting 145.00 mm[Hg] - Sitting 98.60 Oral 96.00 % 89.00/ min 18.00/min 15740 219 48813 0 100.00 mm[Hg] - Sitting 168.00 mm[Hg] - Sitting 85.00/ min 11899 220 06876 7 100.00 mm[Hg] - Sitting 169.00 mm[Hg] - Sitting 97.90 Ear 99.00 % 68.00/ min 18.00/min 56332 221 35697 6 83.00 mm[Hg] - Sitting 144.00 mm[Hg] - Sitting 97.20 Ear 99.00 % 84.00/ min 20.00/min 28648 223 03065 0 71.00 mm[Hg] - Lying Down 159.00 mm[Hg] - Lying Down 97.30 Ear 94.00 % 72.00/ min 18.00/min 63213 224 40471 3 69.00 mm[Hg] - Sitting 146.00 mm[Hg] - Sitting 98.10 Oral 98.00 % 88.00/ min 18.00/min 60760 225 46253 7 144.00 NI 83338 225 44943 9 84.00 mm[Hg] - Lying Down 153.00 mm[Hg] - Lying Down 98.10 Ear 97.00 % 74.00/ min 18.00/min Immunizations Vaccine Date Status COVID-19 12/23/2020 Completed COVID-19 01/27/2021 Completed COVID-19 09/24/2021 Completed COVID-19 09/12/2023 Completed Influenza 08/25/2023 Completed (PCV20)Pneumococcal 10/29/2023 Completed TDaP 10/16/2023 Completed
--- OUTSIDE RECORDS SUMMARY | 2024-04-03 08:40 | External Medical Summary | Summary of Care ---
Author Name Unknown Organization [facility] Address [address] [place] [address] Phone [phone] Care Team Providers Care Art Glass Designer Name Role Phone Aura Jasso MD Primary Care Provider [phone] Encounter Details Date Type Department Care Team (Late st Contact Info) Description 02/05/2024 Orders Only Lab Mobile Phlebotomy [facility] [address] [place] [address] Aura Jasso MD [address] [place] [address] [place] [id number] Coronary atherosclerosis*; HTN, goal below 140/90 Allergies Active Allergy Reactions Criticality Noted Date Comments Lisinopril Cough Medium 05/25/2023 Penicillin G Rash 04/21/2012 documented as of this encounter (statuses as of 02/05/2024) Medications Medication Sig Dispensed Refills Start Date [...] as of this encounter (statuses as of 02/05/2024) Active Problems Problem Noted Date Diagnosed Date Chronic kidney disease, stage 4 (severe) 023 Overview: Per CKD protocol AAA (abdominal aortic aneurysm) 12/28/2015 Overview: 3.8 cm 05/12/14 Malignant neoplasm of upper lobe, 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 documented as of this encounter (statuses as of 02/05/2024) Resolved Problems Problem Noted Date Diagnosed Date Resolved Date Chronic kidney disease, stage 3b 06/09/2023 08/14/2023 Overview: Per CKD protocol documented as of this encounter (statuses as of 02/05/2024) Immunizations Name Administration Dates Next Due Seasonal [...] as of this encounter Plan of Treatment Scheduled Orders Name Type Priority Associated Diagnoses Orde r Schedule COMPREHENSIVE METABOLIC PANEL Lab Routine Coronary atherosclerosis HTN, goal below 140/90 Expected: 02/05/2024, Expires: 02/04/2025 CBC Lab Routine Coronary atherosclerosis HTN, goal below 140/90 Expected: 02/05/2024, Expires: 02/04/2025 ALBUMIN / CREATININE RATIO, URINE Lab Routine Coronary atherosclerosis HTN, goal below 140/90 Expected: 02/05/2024, Expires: 02/04/2025 Health Maintenance Due Date Last Done Comments Depression Screening 1952 DTaP,Tdap,and Td Vaccines (1 - Tdap) 1958 Zoster Vaccines (1 of 2) 1989 Influenza Vaccine (FLU shot) (#1) 2023 09/01/2021 GFR 07/26/2024 01/26/2024, 01/01, 01/12/2024, Additional history exists Albumin/Creatinine Ratio 08/15/2024 08/15/2023, 0605/2023 AAA Monitoring 08/21/2024 08/21/2023, 08/0 12/2021, 01/27/2017, Additional history exists COVID-19 Vaccine Completed 09/12/2023 Pneumococcal Vaccine: 65+ [...] as of this encounter Visit Diagnoses Diagnosis Coronary atherosclerosis- Primary Coronary atherosclerosis of unspecified type of vessel, [place] or graft HTN, goal below 140/90 Unspecified essential hypertension documented in this encounter Care Teams Art Glass Designer Relationship Specialty Start Date End Date Aura Jasso MD [address] [place] [address] [place] [id number] PCP - General 01/16/01 documented as of this encounter
--- OUTSIDE RECORDS SUMMARY | 2024-04-03 08:40 | External Medical Summary | Continuity Of Care Document ---
Author Name Unknown Address [address] [place] [address] Organization [facility] ( ) Care Team Providers Care Senior Sql Server Developer Name Role Phone Aura Jasso Primary Care Provider [phone] Allergies Allergy Reaction Start Date End Date Status PENICILLINS Active VITAL SIGNS Date Time Diastolic blood pressure Systolic blood pressure Body height Body weight Temperature SpO2 Blood Sugar Pulse Respirations 76204 211 97886 4 94.00 mm[Hg] - Sitting 184.00 mm[Hg] - Sitting 97.00 X-Other 96.00 % 95.00/ min 18.00/min 85317 211 55580 3 68 NI 137.00 NI 55138 211 84143 4 25664 211 51285 4 98882 212 83176 2 68 NI 88897 212 28549 1 140.00 NI 75279 212 83977 6 81.00 mm[Hg] - Sitting 128.00 mm[Hg] - Sitting 97.20 Ear 94.00 % 112.00 /min 18.00/min 22722 212 50868 5 81.00 mm[Hg] - Sitting 128.00 mm[Hg] - Sitting 97.20 Oral 112.00 /min 18.00/min 70976 212 56025 0 81.00 mm[Hg] - Lying Down 128.00 mm[Hg] - Lying Down 97.20 Ear 112.00 /min 18.00/min 73255 213 74018 1 98.00 mm[Hg] - Sitting 170.00 mm[Hg] - Sitting 96.80 Oral 96.00 % 88.00/ min 18.00/min 40368 213 03649 5 144.00 NI 69560 213 74345 2 34826 213 20313 5 98.00 mm[Hg] - Sitting 170.00 mm[Hg] - Sitting 96.80 Oral 88.00/ min 18.00/min 92407 214 61702 9 98.00 mm[Hg] - Lying Down 170.00 mm[Hg] - Lying Down 96.80 Ear 88.00/ min 18.00/min 46494 214 30880 6 144.00 NI 03459 214 34917 0 106.00 mm[Hg] - Sitting 186.00 mm[Hg] - Sitting 97.00/ min 18.00/min 42574 214 70544 4 99.00 mm[Hg] - Sitting 169.00 mm[Hg] - Sitting 98.40 Oral 94.00 % 111.00 /min 18.00/min 22839 215 28845 2 144.00 NI 98804 215 01003 8 112.00 mm[Hg] - Sitting 116.00 mm[Hg] - Sitting 97.40 Oral 96.00 % 97.00/ min 18.00/min 63792 217 39078 6 106.00 mm[Hg] - Sitting 167.00 mm[Hg] - Sitting 93.00/ min 06231 217 66883 3 93.00 mm[Hg] - Sitting 160.00 mm[Hg] - Sitting 97.30 Ear 97.00 % 102.00 /min 20.00/min 83577 217 28265 0 94.00 mm[Hg] - Sitting 155.00 mm[Hg] - Sitting 97.30 Ear 93.00 % 87.00/ min 18.00/min 11007 217 59573 9 117.00 mm[Hg] - Sitting 162.00 mm[Hg] - Sitting 67331 218 82847 1 118.00 mm[Hg] - Lying Down 182.00 mm[Hg] - Lying Down 98.20 Ear 97.00 % 81.00/ min 18.00/min 30804 218 57797 1 142.00 NI 55693 218 41255 0 142.00 NI 91928 218 42137 0 90.00 mm[Hg] - Sitting 155.00 mm[Hg] - Sitting 97.20 Oral 96.00 % 85.00/ min 52021 218 09367 0 93.00 mm[Hg] - Sitting 145.00 mm[Hg] - Sitting 70098 219 97102 8 143.00 NI 88578 219 62366 5 91.00 mm[Hg] - Sitting 145.00 mm[Hg] - Sitting 98.60 Oral 96.00 % 89.00/ min 18.00/min 47320 219 70882 0 100.00 mm[Hg] - Sitting 168.00 mm[Hg] - Sitting 85.00/ min 22951 220 55645 7 100.00 mm[Hg] - Sitting 169.00 mm[Hg] - Sitting 97.90 Ear 99.00 % 68.00/ min 18.00/min 08075 221 06534 6 83.00 mm[Hg] - Sitting 144.00 mm[Hg] - Sitting 97.20 Ear 99.00 % 84.00/ min 20.00/min 16743 223 20539 0 71.00 mm[Hg] - Lying Down 159.00 mm[Hg] - Lying Down 97.30 Ear 94.00 % 72.00/ min 18.00/min 40439 224 48774 3 69.00 mm[Hg] - Sitting 146.00 mm[Hg] - Sitting 98.10 Oral 98.00 % 88.00/ min 18.00/min 29519 225 04227 7 144.00 NI 52043 225 22273 9 84.00 mm[Hg] - Lying Down 153.00 mm[Hg] - Lying Down 98.10 Ear 97.00 % 74.00/ min 18.00/min Immunizations Vaccine Date Status COVID-19 12/23/2020 Completed COVID-19 01/27/2021 Completed COVID-19 09/24/2021 Completed COVID-19 09/12/2023 Completed Influenza 08/25/2023 Completed (PCV20)Pneumococcal 10/29/2023 Completed TDaP 10/16/2023 Completed
--- OUTSIDE RECORDS SUMMARY | 2024-04-03 08:40 | External Medical Summary | Continuity Of Care Document ---
Author Name Unknown Address [address] [place] [address] Organization [facility] ( ) Care Team Providers Care Graphics Software Engineer Name Role Phone Aura Jasso Primary Care Provider [phone] Allergies Allergy Reaction Start Date End Date Status PENICILLINS Active VITAL SIGNS Date Time Diastolic blood pressure Systolic blood pressure Body height Body weight Temperature SpO2 Blood Sugar Pulse Respirations 29840 229 48501 2 143.60 NI 92477 302 08268 5 92.00 mm[Hg] - Sitting 166.00 mm[Hg] - Sitting 95538 303 06706 5 88.00 mm[Hg] - Sitting 148.00 mm[Hg] - Sitting 17106 305 41736 6 92.00 mm[Hg] - Sitting 152.00 mm[Hg] - Sitting 15053 307 48309 1 146.80 NI 43995 308 70790 1 92.00 mm[Hg] - Sitting 158.00 mm[Hg] - Sitting 76.00/ min 42452 309 95177 9 88.00 mm[Hg] - Sitting 158.00 mm[Hg] - Sitting 91103 310 60946 2 68.00 mm[Hg] - Sitting 122.00 mm[Hg] - Sitting 08013 310 98044 4 88.00 mm[Hg] - Sitting 148.00 mm[Hg] - Sitting 16226 311 09529 9 88.00 mm[Hg] - Sitting 158.00 mm[Hg] - Sitting 65640 313 68704 7 88.00 mm[Hg] - Sitting 152.00 mm[Hg] - Sitting 93431 315 58039 1 80.00 mm[Hg] - Sitting 146.00 mm[Hg] - Sitting 84.00/ min 42895 316 37011 0 88.00 mm[Hg] - Sitting 156.00 mm[Hg] - Sitting 36077 317 43253 2 88.00 mm[Hg] - Sitting 152.00 mm[Hg] - Sitting 76098 319 38627 0 86.00 mm[Hg] - Sitting 144.00 mm[Hg] - Sitting 321 37509 9 84.00 mm[Hg] - Sitting 148.00 mm[Hg] - Sitting 84.00/ min 27649 323 08244 6 82.00 mm[Hg] - Sitting 152.00 mm[Hg] - Sitting 29219 324 32916 3 88.00 mm[Hg] - Sitting 152.00 mm[Hg] - Sitting 74.00/ min 30009 325 00958 3 74.00 mm[Hg] - Sitting 138.00 mm[Hg] - Sitting 29984 326 58843 3 84.00 mm[Hg] - Sitting 135.00 mm[Hg] - Sitting 82.00/ min 76864 327 59002 0 88.00 mm[Hg] - Sitting 196.00 mm[Hg] - Sitting 62.00/ min 88206 327 08647 0 94.00 mm[Hg] - Sitting 162.00 mm[Hg] - Sitting 52488 328 16919 2 92.00 mm[Hg] - Sitting 162.00 mm[Hg] - Sitting 28062 328 08114 7 92.00 mm[Hg] - Sitting 147.00 mm[Hg] - Sitting 78.00/ min Immunizations Vaccine Date Status COVID-19 12/23/2020 Completed COVID-19 01/27/2021 Completed COVID-19 09/24/2021 Completed COVID-19 09/12/2023 Completed Influenza 08/25/2023 Completed (PCV20)Pneumococcal 10/29/2023 Completed TDaP 10/16/2023 Completed
--- OUTSIDE RECORDS SUMMARY | 2024-04-03 08:40 | External Medical Summary ---
Author Name Unknown Address Unknown Organization K01:LAB[facility]ORY [facility] [place] - [address] [place] [address] Laboratory Report Ordering Provider Test Date Status KWAN BLANCA 02/05/2024 06:12:00 Final Normal: <30 mg/g creatinine< br/>High: 30-300 mg/g creatinine
Very High: >300 mg/g creatinine
Nephrotic: >2200 mg/g creatinine Observation Date Value Abnormality Reference (Units ) Status Albumin, Urine 02/05/2024 06:12:00 2.58 (mg/dL) Final Creatinine, Urine 02/05/2024 06:12:00 43 (mg/dL) Final Albumin/Creatinine [Mass Ratio] in Urine 02/05/2024 06:12:00 60 Above high normal <30 (mg/g Creat) Final Performing Location LABORATORY [facility] [place] - [address] [place] [address]
--- OUTSIDE RECORDS SUMMARY | 2024-04-03 08:40 | External Medical Summary ---
Author Name Unknown Address Unknown Organization K01:LABORATORY [facility] - [address] [facility] [place] [address] Laboratory Report Ordering Provider Test Date Status KWAN BLANCA 02/19/2024 07:50:59 Final Observation Date Value Abnormality Reference (Units ) Status BUN 02/19/2024 07:50:59 36 Above high normal 6-20 (mg/dL) Final Creatinine 02/19/2024 07:50:59 2.5 Above high normal 0.6-1.2 (mg/dL) Final Glomerular filtration rate/1.73 sq M.predicted [Volume Rate/Area] in Serum, Plasma or Blood by Creatinine-based formula (CKD-EPI) 02/19/2024 07:50:59 25 Below low normal >=60 (mL/min) Final eGFR is calculated based on the CKD-EPI 2020 equation Sodium 02/19/2024 07:50:59 140 135-146 (m mol/L) Final Potassium 02/19/2024 07:50:59 4.4 3.5-5.1 (m mol/L) Final Cl 02/19/2024 07:50:59 106 98-107 (mm ol/L) Final CO2 02/19/2024 07:50:59 24 22-32 (mmo l/L) Final Anion gap 02/19/2024 07:50:59 10 7-15 (mmol /L) Final Glucose 02/19/2024 07:50:59 86 70-120 (mg /dL) Final Albumin 02/19/2024 07:50:59 3.5 Below low normal 3.8 -5.0 (g/dL) Final AST (Aspartate aminotransferase) 02/19/2024 07:50:59 13 10-50 (U/L) Fin al Alk Phos 02/19/2024 07:50:59 67 35-130 (U/ L) Final Bilirubin, Total 02/19/2024 07:50:59 0.3 <=1 .2 (mg/dL) Final Calcium 02/19/2024 07:50:59 9.3 8.4-10.2 ( mg/dL) Final Protein 02/19/2024 07:50:59 6.1 6.0-8.3 (g /dL) Final ALT (Alanine aminotransferase) 02/19/2024 07:50:59 14 10-50 (U/L) Ari skelton Performing Location LABORATORY [facility] - [address] [facility] [address]
--- OUTSIDE RECORDS SUMMARY | 2024-04-03 08:40 | External Medical Summary ---
Author Name Unknown Address Unknown Organization K0G:LABORATORY [place] [address] - [address] [place] [address] Laboratory Report Ordering Provider Test Date Status KWAN BLANCA 02/05/2024 06:12:00 Final Observation Date Value Abnormality Reference (Units ) Status BUN 02/05/2024 06:12:00 34 Above high normal 6-20 (mg/dL) Final Creatinine 02/05/2024 06:12:00 2.2 Above high normal 0.6-1.2 (mg/dL) Final Glomerular filtration rate/1.73 sq M.predicted [Volume Rate/Area] in Serum, Plasma or Blood by Creatinine-based formula (CKD-EPI) 02/05/2024 06:12:00 29 Below low normal >=60 (mL/min) Final eGFR is calculated based on the CKD-EPI 2020 equation SODIUM 02/05/2024 06:12:00 138 135-146 (m mol/L) Final Potassium 02/05/2024 06:12:00 4.7 3.5-5.1 (m mol/L) Final Cl 02/05/2024 06:12:00 103 98-107 (mm ol/L) Final CO2 02/05/2024 06:12:00 23 22-32 (mmo l/L) Final Anion gap 02/05/2024 06:12:00 12 7-15 (mmol /L) Final Glucose 02/05/2024 06:12:00 88 70-120 (mg /dL) Final Albumin 02/05/2024 06:12:00 3.5 Below low normal 3.8 -5.0 (g/dL) Final AST (Aspartate aminotransferase) 02/05/2024 06:12:00 11 10-50 (U/L) Fin al Alk Phos 02/05/2024 06:12:00 70 35-130 (U/ L) Final Bilirubin, Total 02/05/2024 06:12:00 0.2 <=1 .2 (mg/dL) Final Calcium 02/05/2024 06:12:00 9.4 8.4-10.2 ( mg/dL) Final Protein 02/05/2024 06:12:00 6.3 6.0-8.3 (g /dL) Final ALT (Alanine aminotransferase) 02/05/2024 06:12:00 9 Below low normal 10-50 (U/L) Final [facility] [address] [facility] [address]
--- OUTSIDE RECORDS SUMMARY | 2024-04-03 08:41 | External Medical Summary | Continuity Of Care Document ---
Author Name Unknown Address [address] [place] [address] Organization [facility] ( ) Care Team Providers Care Vp Cardiovascular Service Line Name Role Phone Aura Jasso Primary Care Provider [phone] Allergies Allergy Reaction Start Date End Date Status PENICILLINS Active Problems Code Description Start Date End Date Status R00.2 Palpitations 01/11/2024 Active R06.02 Shortness of breath 01/11/2024 Activ e I50.32 Chronic diastolic (congestive) heart failure Active I16.0 Hypertensive urgency 01/11/2024 Acti ve N18.4 Chronic kidney disease, stage 4 (severe) 2023 Active I25.10 Atherosclerotic hear t disease of [place] coronary artery without angina pectoris 01/11/2024 Active G45.9 Transient cerebral ischemic attack, unspecified 01/11/2024 Active Z85.118 Personal history of other malignant neoplasm of bronchus and lung 01/11/2024 Active 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] 01/11/2024 0 Active I71.40 Abdominal aortic ane urysm, without rupture, unspecified 01/11/2024 Active K21.9 Gastro-esophageal re flux disease without esophagitis 01/11/2024 Active M10.9 Gout, unspecified 01/11/2024 Active N40.0 Benign prostatic hyp erplasia without lower urinary tract symptoms 01/11/2024 Active VITAL SIGNS Date Time Diastolic blood pressure Systolic blood pressure Body height Body weight Temperature SpO2 Blood Sugar Pulse Respirations 05330 211 94593 4 94.00 mm[Hg] - Sitting 184.00 mm[Hg] - Sitting 97.00 X-Other 96.00 % 95.00/ min 18.00/min 31393 211 49085 3 68 NI 137.00 NI 01287 211 60784 4 41220 211 45291 4 43500 212 82161 2 68 NI 31859 212 52238 1 140.00 NI 09757 212 02550 6 81.00 mm[Hg] - Sitting 128.00 mm[Hg] - Sitting 97.20 Ear 94.00 % 112.00 /min 18.00/min 34281 212 34323 5 81.00 mm[Hg] - Sitting 128.00 mm[Hg] - Sitting 97.20 Oral 112.00 /min 18.00/min 56345 212 60057 0 81.00 mm[Hg] - Lying Down 128.00 mm[Hg] - Lying Down 97.20 Ear 112.00 /min 18.00/min 68232 213 80374 1 98.00 mm[Hg] - Sitting 170.00 mm[Hg] - Sitting 96.80 Oral 96.00 % 88.00/ min 18.00/min 96724 213 47572 5 144.00 NI 72946 213 24753 2 33163 213 45861 5 98.00 mm[Hg] - Sitting 170.00 mm[Hg] - Sitting 96.80 Oral 88.00/ min 18.00/min 62302 214 43357 9 98.00 mm[Hg] - Lying Down 170.00 mm[Hg] - Lying Down 96.80 Ear 88.00/ min 18.00/min 04593 214 65857 6 144.00 NI 22113 214 79235 0 106.00 mm[Hg] - Sitting 186.00 mm[Hg] - Sitting 97.00/ min 18.00/min 99455 214 98342 4 99.00 mm[Hg] - Sitting 169.00 mm[Hg] - Sitting 98.40 Oral 94.00 % 111.00 /min 18.00/min 38821 215 05978 2 144.00 NI 96322 215 61005 8 112.00 mm[Hg] - Sitting 116.00 mm[Hg] - Sitting 97.40 Oral 96.00 % 97.00/ min 18.00/min Immunizations Vaccine Date Status COVID-19 12/23/2020 Completed COVID-19 01/27/2021 Completed COVID-19 09/24/2021 Completed COVID-19 09/12/2023 Completed Influenza 08/25/2023 Completed (PCV20)Pneumococcal 10/29/2023 Completed TDaP 10/16/2023 Completed
--- OUTSIDE RECORDS SUMMARY | 2024-04-03 08:41 | External Medical Summary | Continuity Of Care Document ---
Author Name Unknown Address [address] [place] [address] Organization [facility] ( ) Care Team Providers Care Aircraft Seat Upholsterer Name Role Phone Aura Jasso Primary Care Provider [phone] Allergies Allergy Reaction Start Date End Date Status PENICILLINS Active VITAL SIGNS Date Time Diastolic blood pressure Systolic blood pressure Body height Body weight Temperature SpO2 Blood Sugar Pulse Respirations 21633 211 99801 4 94.00 mm[Hg] - Sitting 184.00 mm[Hg] - Sitting 97.00 X-Other 96.00 % 95.00/ min 18.00/min 88055 211 87647 3 68 NI 137.00 NI 69697 211 96569 4 23747 211 43203 4 70948 212 84492 2 68 NI 76081 212 93282 1 140.00 NI 54304 212 28969 6 81.00 mm[Hg] - Sitting 128.00 mm[Hg] - Sitting 97.20 Ear 94.00 % 112.00 /min 18.00/min 48530 212 02025 5 81.00 mm[Hg] - Sitting 128.00 mm[Hg] - Sitting 97.20 Oral 112.00 /min 18.00/min 74697 212 85642 0 81.00 mm[Hg] - Lying Down 128.00 mm[Hg] - Lying Down 97.20 Ear 112.00 /min 18.00/min 08770 213 55461 1 98.00 mm[Hg] - Sitting 170.00 mm[Hg] - Sitting 96.80 Oral 96.00 % 88.00/ min 18.00/min Immunizations Vaccine Date Status COVID-19 12/23/2020 Completed COVID-19 01/27/2021 Completed COVID-19 09/24/2021 Completed COVID-19 09/12/2023 Completed Influenza 08/25/2023 Completed (PCV20)Pneumococcal 10/29/2023 Completed TDaP 10/16/2023 Completed
--- OUTSIDE RECORDS SUMMARY | 2024-04-03 08:41 | External Medical Summary ---
Author Name Unknown Address Unknown Organization K0G:LABORATORY [place] [facility] - [address] [place] [address] Laboratory Report Ordering Provider Test Date Status KWAN BLANCA 01/19/2024 05:54:00 Final Observation Date Value Abnormality Reference (Units ) Status BUN 01/19/2024 05:54:00 41 Above high normal 6-20 (mg/dL) Final Creatinine 01/19/2024 05:54:00 2.3 Above high normal 0.6-1.2 (mg/dL) Final Glomerular filtration rate/1.73 sq M.predicted [Volume Rate/Area] in Serum, Plasma or Blood by Creatinine-based formula (CKD-EPI) 01/19/2024 05:54:00 28 Below low normal >=60 (mL/min) Final eGFR is calculated based on the CKD-EPI 2020 equation SODIUM 01/19/2024 05:54:00 141 135-146 (m mol/L) Final Potassium 01/19/2024 05:54:00 4.1 3.5-5.1 (m mol/L) Final Cl 01/19/2024 05:54:00 104 98-107 (mm ol/L) Final CO2 01/19/2024 05:54:00 25 22-32 (mmo l/L) Final Anion gap 01/19/2024 05:54:00 12 7-15 (mmol /L) Final Glucose 01/19/2024 05:54:00 100 70-120 (mg /dL) Final Albumin 01/19/2024 05:54:00 3.3 Below low normal 3.8 -5.0 (g/dL) Final AST (Aspartate aminotransferase) 01/19/2024 05:54:00 12 10-50 (U/L) Fin al Alk Phos 01/19/2024 05:54:00 69 35-130 (U/ L) Final Bilirubin, Total 01/19/2024 05:54:00 0.3 <=1 .2 (mg/dL) Final Calcium 01/19/2024 05:54:00 9.4 8.4-10.2 ( mg/dL) Final Protein 01/19/2024 05:54:00 6.5 6.0-8.3 (g /dL) Final ALT (Alanine aminotransferase) 01/19/2024 05:54:00 11 10-50 (U/L) Ari skelton Performing Location LABORATORY [place] [address] - [address] [place] [address]
--- OUTSIDE RECORDS SUMMARY | 2024-04-03 08:41 | External Medical Summary | Continuity Of Care Document ---
Author Name Unknown Address [address] [place] [address] Organization [facility] ( ) Care Team Providers Care Ceramic Coater Name Role Phone Aura Jasso Primary Care Provider [phone] Allergies Allergy Reaction Start Date End Date Status PENICILLINS Active Problems Code Description Start Date End Date Status R00.2 Palpitations 01/11/2024 Active R06.02 Shortness of breath 01/11/2024 Activ e I50.32 Chronic diastolic (congestive) heart failure Active I16.0 Hypertensive urgency 01/11/2024 Acti ve N18.4 Chronic kidney disease, stage 4 (severe) 2023 Active I25.10 Atherosclerotic hear t disease of [place] coronary artery without angina pectoris 01/11/2024 Active [...] weight Temperature SpO2 Blood Sugar Pulse Respirations 30978 211 97592 4 94.00 mm[Hg] - Sitting 184.00 mm[Hg] - Sitting 97.00 X-Other 96.00 % 95.00/ min 18.00/min 88302 211 33800 3 68 NI 137.00 NI 83991 211 22171 4 48731 211 58675 4 86350 212 81891 2 68 NI 86216 212 17993 1 140.00 NI 99419 212 35637 6 81.00 mm[Hg] - Sitting 128.00 mm[Hg] - Sitting 97.20 Ear 94.00 % 112.00 /min 18.00/min 07371 212 40741 5 81.00 mm[Hg] - Sitting 128.00 mm[Hg] - Sitting 97.20 Oral 112.00 /min 18.00/min 55547 212 10575 0 81.00 mm[Hg] - Lying Down 128.00 mm[Hg] - Lying Down 97.20 Ear 112.00 /min 18.00/min 78045 213 38853 1 98.00 mm[Hg] - Sitting 170.00 mm[Hg] - Sitting 96.80 Oral 96.00 % 88.00/ min 18.00/min 42827 213 14190 5 144.00 NI 28342 213 04889 2 18103 213 79094 5 98.00 mm[Hg] - Sitting 170.00 mm[Hg] - Sitting 96.80 Oral 88.00/ min 18.00/min 92253 214 87820 9 98.00 mm[Hg] - Lying Down 170.00 mm[Hg] - Lying Down 96.80 Ear 88.00/ min 18.00/min 95390 214 14904 6 144.00 NI 71720 214 48531 0 106.00 mm[Hg] - Sitting 186.00 mm[Hg] - Sitting 97.00/ min 18.00/min 20260 214 32045 4 99.00 mm[Hg] - Sitting 169.00 mm[Hg] - Sitting 98.40 Oral 94.00 % 111.00 /min 18.00/min 64679 215 56123 2 144.00 NI 78765 215 92608 8 112.00 mm[Hg] - Sitting 116.00 mm[Hg] - Sitting 97.40 Oral 96.00 % 97.00/ min 18.00/min Immunizations Vaccine Date Status COVID-19 12/23/2020 Completed COVID-19 01/27/2021 Completed COVID-19 09/24/2021 Completed COVID-19 09/12/2023 Completed Influenza 08/25/2023 Completed (PCV20)Pneumococcal 10/29/2023 Completed TDaP 10/16/2023 Completed
--- OUTSIDE RECORDS SUMMARY | 2024-04-03 08:41 | External Medical Summary | Continuity Of Care Document ---
Author Name Unknown Address [address] [place] [address] Organization [facility] ( ) Care Team Providers Care Tumble Tailstock Turret Lathe Operator Name Role Phone Aura Jasso Primary Care Provider [phone] Allergies Allergy Reaction Start Date End Date Status PENICILLINS Active VITAL SIGNS Date Time Diastolic blood pressure Systolic blood pressure Body height Body weight Temperature SpO2 Blood Sugar Pulse Respirations 18958 211 16277 4 94.00 mm[Hg] - Sitting 184.00 mm[Hg] - Sitting 97.00 X-Other 96.00 % 95.00/ min 18.00/min 13298 211 63714 3 68 NI 137.00 NI 92768 211 83639 4 73051 211 59680 4 Immunizations Vaccine Date Status COVID-19 12/23/2020 Completed COVID-19 01/27/2021 Completed COVID-19 09/24/2021 Completed COVID-19 09/12/2023 Completed Influenza 08/25/2023 Completed (PCV20)Pneumococcal 10/29/2023 Completed TDaP 10/16/2023 Completed
--- OUTSIDE RECORDS SUMMARY | 2024-04-03 08:41 | External Medical Summary ---
Author Name Unknown Address Unknown Organization K0G:LABORATORY [place] [address] - [address] [place] [address] Laboratory Report Ordering Provider Test Date Status KWAN BLANCA 01/12/2024 06:06:00 Final Observation Date Value Abnormality Reference (Units ) Status BUN 01/12/2024 06:06:00 60 Above high normal 6-20 (mg/dL) Final Creatinine 01/12/2024 06:06:00 2.7 Above high normal 0.6-1.2 (mg/dL) Final Glomerular filtration rate/1.73 sq M.predicted [Volume Rate/Area] in Serum, Plasma or Blood by Creatinine-based formula (CKD-EPI) 01/12/2024 06:06:00 22 Below low normal >=60 (mL/min) Final eGFR is calculated based on the CKD-EPI 2020 equation SODIUM 01/12/2024 06:06:00 142 135-146 (m mol/L) Final Potassium 01/12/2024 06:06:00 4.3 3.5-5.1 (m mol/L) Final Cl 01/12/2024 06:06:00 108 Above high normal 98 -107 (mmol/L) Final CO2 01/12/2024 06:06:00 15 Below low normal 22- 32 (mmol/L) Final Anion gap 01/12/2024 06:06:00 19 Above high normal 7- 15 (mmol/L) Final Glucose 01/12/2024 06:06:00 128 Above high normal 70 -120 (mg/dL) Final Calcium 01/12/2024 06:06:00 10.1 8.4-10.2 ( mg/dL) Final Performing Location LAB[facility]ATORY [place] [address] - [address] [place] [address]
--- OUTSIDE RECORDS SUMMARY | 2024-04-03 08:41 | External Medical Summary | Summary of Care ---
Author Name Unknown Organization [facility] Address [address] [place] [address] Phone [phone] Care Team Providers Care Director Religious Education Name Role Phone Aura Jasso MD Primary Care Provider [phone] Encounter Details Date Type Department Care Team (Late st Contact Info) Description 01/11/2024 Orders Only Lab Mobile Phlebotomy [facility] [address] [place] [address] Aura Jasso MD [address] [place] [address] [place] [id number] Chronic kidney disease (CKD)*; Anemia; Congestive heart failure (CHF) ([facility]) Allergies Active Allergy Reactions Criticality Noted Date Comments Lisinopril Cough Medium 05/25/2023 Penicillin G Rash 04/21/2012 documented as of this encounter (statuses as of 01/11/2024) Medications Medication Sig Dispensed Refills Start Date [...] as of this encounter (statuses as of 01/11/2024) Active Problems Problem Noted Date Diagnosed Date Chronic kidney disease, stage 4 (severe) 023 Overview: Per CKD protocol AAA (abdominal aortic aneurysm) 12/28/2015 Overview: 3.8 cm 05/12/14 Malignant neoplasm of upper lobe, 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 documented as of this encounter (statuses as of 01/11/2024) Resolved Problems Problem Noted Date Diagnosed Date Resolved Date Chronic kidney disease, stage 3b 06/09/2023 08/14/2023 Overview: Per CKD protocol documented as of this encounter (statuses as of 01/11/2024) Immunizations Name Administration Dates Next Due Seasonal [...] as of this encounter Plan of Treatment Upcoming Encounters Date Type Department Care Team (Late st Contact Info) Description 01/12/2024 8:10 AM EST Laboratory Lab Mobile [facility] [address] [facility] [id number] [place] [address] Scheduled Orders Name Type Priority Associated Diagnoses Orde r Schedule CBC Lab Routine Chronic kidney disease (CKD) Anemia Congestive heart failure (CHF) (HCC) Expected: 01/12/2024, Expires: 01/11/2025 BASIC METABOLIC PANEL Lab Routine Chronic kidney disease (CKD) Anemia Congestive heart failure (CHF) (HCC) Expected: 01/12/2024, Expires: 01/11/2025 Health Maintenance Due Date Last Done Comments [...] Additional history exists Albumin/Creatinine Ratio 08/15/2024 08/15/2023, 06/0 05/2023 AAA Monitoring 08/21/2024 08/21/2023, 08/0 12/2021, 01/27/2017, Additional history exists GARDASIL-HPV IMMUNIZATION SERIES Aged Out No longer eligible based on patient's age to complete this topic MENINGOCOCCAL (MENACTRA/MENVEO) Aged Out No longer eligible based on patient's age to complete this topic documented as of this encounter Medical Devices Not on filedocumented as of this encounter Visit Diagnoses Diagnosis Chronic kidney disease (CKD)- Primary Chronic kidney disease, unspecified Anemia Anemia, unspecified Congestive heart failure (CHF) (HCC) Congestive heart failure, unspecified documented in this encounter Care Teams Director Religious Education Relationship Specialty Start Date End Date Aura Jasso MD [address] [place] [address] [place] [id number] PCP - General 01/16/01 documented as of this encounter
--- OUTSIDE RECORDS SUMMARY | 2024-04-03 08:41 | External Medical Summary | Continuity Of Care Document ---
Author Name Unknown Address [address] [place] [address] Organization [facility]) Care Team Providers Care Front End Drupal Developer Name Role Phone Aura Jasso Primary Care Provider [phone] Allergies Allergy Reaction Start Date End Date Status PENICILLINS Active Problems Code Description Start Date End Date Status R00.2 Palpitations 01/11/2024 Active R06.02 Shortness of breath 01/11/2024 Activ e I50.32 Chronic diastolic (congestive) heart failure Active I16.0 Hypertensive urgency 01/11/2024 Acti ve N18.4 Chronic kidney disease, stage 4 (severe) 2023 Active I25.10 Atherosclerotic hear t disease of [place] coronary artery without angina pectoris 01/11/2024 Active [...] without lower urinary tract symptoms 01/11/2024 Active R26.81 Unsteadiness on feet 01/18/2024 Acti ve M62.81 Muscle weakness (generalized) 01/18/2024 00/00/ 0000 Active VITAL SIGNS Date Time Diastolic blood pressure Systolic blood pressure Body height Body weight Temperature SpO2 Blood Sugar Pulse Respirations 58662 211 81492 4 94.00 mm[Hg] - Sitting 184.00 mm[Hg] - Sitting 97.00 X-Other 96.00 % 95.00/ min 18.00/min 77106 211 22467 3 68 NI 137.00 [place] 56870 211 15566 4 85848 211 94744 4 04061 212 56832 2 68 NI 29385 212 77802 1 140.00 NI 18114 212 23808 6 81.00 mm[Hg] - Sitting 128.00 mm[Hg] - Sitting 97.20 Ear 94.00 % 112.00 /min 18.00/min 61457 212 40823 5 81.00 mm[Hg] - Sitting 128.00 mm[Hg] - Sitting 97.20 Oral 112.00 /min 18.00/min 91864 212 93315 0 81.00 mm[Hg] - Lying Down 128.00 mm[Hg] - Lying Down 97.20 Ear 112.00 /min 18.00/min 75785 213 98532 1 98.00 mm[Hg] - Sitting 170.00 mm[Hg] - Sitting 96.80 Oral 96.00 % 88.00/ min 18.00/min 31171 213 94443 5 144.00 NI 68727 213 91966 2 15515 213 94257 5 98.00 mm[Hg] - Sitting 170.00 mm[Hg] - Sitting 96.80 Oral 88.00/ min 18.00/min 58249 214 77343 9 98.00 mm[Hg] - Lying Down 170.00 mm[Hg] - Lying Down 96.80 Ear 88.00/ min 18.00/min 99107 214 56376 6 144.00 NI 21334 214 47442 0 106.00 mm[Hg] - Sitting 186.00 mm[Hg] - Sitting 97.00/ min 18.00/min 87235 214 61681 4 99.00 mm[Hg] - Sitting 169.00 mm[Hg] - Sitting 98.40 Oral 94.00 % 111.00 /min 18.00/min 73254 215 21299 2 144.00 NI 66568 215 26552 8 112.00 mm[Hg] - Sitting 116.00 mm[Hg] - Sitting 97.40 Oral 96.00 % 97.00/ min 18.00/min 32594 217 70294 6 106.00 mm[Hg] - Sitting 167.00 mm[Hg] - Sitting 93.00/ min 27377 217 43421 3 93.00 mm[Hg] - Sitting 160.00 mm[Hg] - Sitting 97.30 Ear 97.00 % 102.00 /min 20.00/min 40057 217 66515 0 94.00 mm[Hg] - Sitting 155.00 mm[Hg] - Sitting 97.30 Ear 93.00 % 87.00/ min 18.00/min 06695 217 24845 9 117.00 mm[Hg] - Sitting 162.00 mm[Hg] - Sitting 38599 218 63070 1 118.00 mm[Hg] - Lying Down 182.00 mm[Hg] - Lying Down 98.20 Ear 97.00 % 81.00/ min 18.00/min 76091 218 04483 1 142.00 NI 68657 218 30436 0 142.00 NI 75112 218 90316 0 90.00 mm[Hg] - Sitting 155.00 mm[Hg] - Sitting 97.20 Oral 96.00 % 85.00/ min 98617 218 98879 0 93.00 mm[Hg] - Sitting 145.00 mm[Hg] - Sitting 53940 219 24034 8 143.00 NI 39720 219 45494 5 91.00 mm[Hg] - Sitting 145.00 mm[Hg] - Sitting 98.60 Oral 96.00 % 89.00/ min 18.00/min 65506 219 68026 0 100.00 mm[Hg] - Sitting 168.00 mm[Hg] - Sitting 85.00/ min 99601 220 88701 7 100.00 mm[Hg] - Sitting 169.00 mm[Hg] - Sitting 97.90 Ear 99.00 % 68.00/ min 18.00/min 97176 221 86349 6 83.00 mm[Hg] - Sitting 144.00 mm[Hg] - Sitting 97.20 Ear 99.00 % 84.00/ min 20.00/min 38352 223 71338 0 71.00 mm[Hg] - Lying Down 159.00 mm[Hg] - Lying Down 97.30 Ear 94.00 % 72.00/ min 18.00/min 07499 224 74580 3 69.00 mm[Hg] - Sitting 146.00 mm[Hg] - Sitting 98.10 Oral 98.00 % 88.00/ min 18.00/min 00251 225 45909 7 144.00 NI 33336 225 95374 9 84.00 mm[Hg] - Lying Down 153.00 mm[Hg] - Lying Down 98.10 Ear 97.00 % 74.00/ min 18.00/min Immunizations Vaccine Date Status COVID-19 12/23/2020 Completed COVID-19 01/27/2021 Completed COVID-19 09/24/2021 Completed COVID-19 09/12/2023 Completed Influenza 08/25/2023 Completed (PCV20)Pneumococcal 10/29/2023 Completed TDaP 10/16/2023 Completed
--- OUTSIDE RECORDS SUMMARY | 2024-04-03 08:41 | External Medical Summary ---
Author Name Unknown Address Unknown Organization K0G:LABORATORY [facility] [place] [address] - [address] [place] [address] Laboratory Report Ordering Provider Test Date Status KWAN BLANCA 01/19/2024 05:54:00 Final Observation Date Value Abnormality Reference (Units ) Status WBC, Total 01/19/2024 05:54:00 5.66 4.00-10.8 0 (K/uL) Final RBC 01/19/2024 05:54:00 2.86 4.50-5.25 (M/uL) Final Hemoglobin 01/19/2024 05:54:00 9.3 Below low normal 14 .0-16.8 (g/dL) Final HCT 01/19/2024 05:54:00 28.8 Below low normal 40. 0-48.4 (%) Final MCV 01/19/2024 05:54:00 100.7 82.0-99.5 (fL) Final MCH 01/19/2024 05:54:00 32.5 27.0-34.0 (pg) Final MCHC 01/19/2024 05:54:00 32.3 32.0-36.0 (g/dL) Final RDW 01/19/2024 05:54:00 12.9 11.5-15.5 (%) Final Platelets 01/19/2024 05:54:00 247 140-400 (K /uL) Final MPV 01/19/2024 05:54:00 10.3 6.6-11.1 ( fL) Final Performing Location LABORATORY [facility] [address] - [address] [place] [address]
--- OUTSIDE RECORDS SUMMARY | 2024-04-03 08:41 | External Medical Summary ---
Author Name Unknown Address Unknown Organization K0G:LABORATORY [facility] [address] - [address] [place] [address] Laboratory Report Ordering Provider Test Date Status KWAN BLANCA 01/26/2024 05:28:00 Final Observation Date Value Abnormality Reference (Units ) Status BUN 01/26/2024 05:28:00 33 Above high normal 6-20 (mg/dL) Final Creatinine 01/26/2024 05:28:00 2.3 Above high normal 0.6-1.2 (mg/dL) Final Glomerular filtration rate/1.73 sq M.predicted [Volume Rate/Area] in Serum, Plasma or Blood by Creatinine-based formula (CKD-EPI) 01/26/2024 05:28:00 27 Below low normal >=60 (mL/min) Final eGFR is calculated based on the CKD-EPI 2020 equation SODIUM 01/26/2024 05:28:00 139 135-146 (m mol/L) Final Potassium 01/26/2024 05:28:00 4.7 3.5-5.1 (m mol/L) Final Cl 01/26/2024 05:28:00 105 98-107 (mm ol/L) Final CO2 01/26/2024 05:28:00 21 Below low normal 22- 32 (mmol/L) Final Anion gap 01/26/2024 05:28:00 13 7-15 (mmol /L) Final Glucose 01/26/2024 05:28:00 94 70-120 (mg /dL) Final Calcium 01/26/2024 05:28:00 9.3 8.4-10.2 ( mg/dL) Final Performing Location LABORATORY [facility] [address] [place] [id number]
--- OUTSIDE RECORDS SUMMARY | 2024-04-03 08:41 | External Medical Summary ---
Author Name Unknown Address Unknown Organization K0G:LABORATORY [facility] [address] [place] [id number] Laboratory Report Ordering Provider Test Date Status KWAN BLANCA 01/12/2024 06:06:00 Final Observation Date Value Abnormality Reference (Units ) Status WBC, Total 01/12/2024 06:06:00 7.96 4.00-10.8 0 (K/uL) Final RBC 01/12/2024 06:06:00 3.60 4.50-5.25 (M/uL) Final Hemoglobin 01/12/2024 06:06:00 11.9 Below low normal 14 .0-16.8 (g/dL) Final HCT 01/12/2024 06:06:00 36.4 Below low normal 40. 0-48.4 (%) Final MCV 01/12/2024 06:06:00 101.1 82.0-99.5 (fL) Final MCH 01/12/2024 06:06:00 33.1 27.0-34.0 (pg) Final MCHC 01/12/2024 06:06:00 32.7 32.0-36.0 (g/dL) Final RDW 01/12/2024 06:06:00 14.0 11.5-15.5 (%) Final Platelets 01/12/2024 06:06:00 190 140-400 (K /uL) Final MPV 01/12/2024 06:06:00 10.8 6.6-11.1 ( fL) Final Performing Location LABORATORY [facility] [address] [place] [id number]
--- OUTSIDE RECORDS SUMMARY | 2024-04-03 08:41 | External Medical Summary | Summary of Care ---
Author Name Unknown Organization [facility] Address [address] [place] [address] Phone [phone] Care Team Providers Care Social Media Intern Name Role Phone Aura Jasso MD Primary Care Provider [phone] Encounter Details Date Type Department Care Team (Late st Contact Info) Description 01/25/2024 Orders Only Lab Mobile [facility] [address] [place] [address] Aura Jasso MD [address] [place] [address] [place] [id number] Anemia*; HTN, age 0-18 Allergies Active Allergy Reactions Criticality Noted Date Comments Lisinopril Cough Medium 05/25/2023 Penicillin G Rash 04/21/2012 documented as of this encounter (statuses as of 01/25/2024) Medications Medication Sig Dispensed Refills Start Date [...] as of this encounter (statuses as of 01/25/2024) Active Problems Problem Noted Date Diagnosed Date Chronic kidney disease, stage 4 (severe) 023 Overview: Per CKD protocol AAA (abdominal aortic aneurysm) 12/28/2015 Overview: 3.8 cm 05/12/14 Malignant neoplasm of upper lobe, 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 documented as of this encounter (statuses as of 01/25/2024) Resolved Problems Problem Noted Date Diagnosed Date Resolved Date Chronic kidney disease, stage 3b 06/09/2023 08/14/2023 Overview: Per CKD protocol documented as of this encounter (statuses as of 01/25/2024) Immunizations Name Administration Dates Next Due Seasonal [...] Care Team (Late st Contact Info) Description 01/26/2024 8:50 AM EST Laboratory Lab [facility] [address] [facility] [address] [place] [address] Scheduled Orders Name Type Priority Associated Diagnoses Orde r Schedule BASIC METABOLIC PANEL Lab Routine Anemia HTN, age 0-18 Expected: 01/26/2024, Expires: 01/25/2025 CBC Lab Routine Anemia HTN, age 0-18 Expected: 01/26/2024, Expires: 01/25/2025 Health Maintenance Due Date Last Done Comments Depression Screening 1952 DTaP,Tdap,and Td Vaccines (1 - Tdap) 1958 Zoster Vaccines (1 of 2) 1989 Influenza Vaccine (FLU shot) (#1) 2023 09/01/2021 GFR 07/19/2024 01/19/2024, 01/01, 08/15/2023, Additional history exists Albumin/Creatinine Ratio 08/15/2024 08/15/2023, 06/0 05/2023 AAA Monitoring 08/21/2024 08/21/2023, 080 12/2021, 01/27/2017, Additional history exists COVID-19 Vaccine [...] as of this encounter Visit Diagnoses Diagnosis Anemia- Primary Anemia, unspecified HTN, age 0-18 Unspecified essential hypertension documented in this encounter Care Teams Social Media Intern Relationship Specialty Start Date End Date Aura Jasso MD [address] [place] [address] [place] [id number] PCP - General 01/16/01 documented as of this encounter
--- OUTSIDE RECORDS SUMMARY | 2024-04-03 08:41 | External Medical Summary ---
Author Name Unknown Address Unknown Organization K0G:LABORATORY [facility] [address] [place] [id number] Laboratory Report Ordering Provider Test Date Status KWAN BLANCA 01/26/2024 05:28:00 Final Observation Date Value Abnormality Reference (Units ) Status WBC, Total 01/26/2024 05:28:00 5.92 4.00-10.8 0 (K/uL) Final RBC 01/26/2024 05:28:00 3.03 4.50-5.25 (M/uL) Final Hemoglobin 01/26/2024 05:28:00 9.8 Below low normal 14 .0-16.8 (g/dL) Final HCT 01/26/2024 05:28:00 30.4 Below low normal 40. 0-48.4 (%) Final MCV 01/26/2024 05:28:00 100.3 82.0-99.5 (fL) Final MCH 01/26/2024 05:28:00 32.3 27.0-34.0 (pg) Final MCHC 01/26/2024 05:28:00 32.2 32.0-36.0 (g/dL) Final RDW 01/26/2024 05:28:00 13.0 11.5-15.5 (%) Final Platelets 01/26/2024 05:28:00 294 140-400 (K /uL) Final MPV 01/26/2024 05:28:00 9.7 6.6-11.1 ( fL) Final Performing Location LABORATORY [facility] [address] [place] [id number]
--- NOTE | 2024-04-03 12:00 | Nephrology Consultation ---
Date of Consultation April 03, 2024 Assessment & Plan (1) Acute on chronic renal failure: acute on advanced chronic renal failure in the setting of resumption of diuretics after not using them since early January. He has been quite hypertensive generally >though most recent pressures are controlled baseline creatinine 2.2-2.6. not a dialysis candidate should the need arise -daily bmp -continue to avoid/minimize nephrotoxins -still w/ mild volume overload as evidenced by CXR > but overall clinically improved; chemistries acceptable >> hold lasix for now though could give prn (2) Acute on chronic heart failure with normal ejection fraction: hold lasix for now > reevaluate for need in AM >continue metoprolol, imdur, statin, clopidogrel, ASA >continue hydralazine, amlodipine current doses -cont 1.8 L FR -cont strict I/O History of Present Illness Reason for Consultation: CELESTE on CKD Requesting Physician: Dr Owens Attending Physician: Timmy Owens MD History of Present Illness 84 y/o M whom I'm asked to see for CELESTE on CKD was admitted on 04/01 with acute on chronic HFpEF in the setting of acute illness w/ rhinovirus. PMH includes CKD 4 (follows w/ Dr Willson; baseline creatinine 2.2-2.6 on available records), HFpEF, CAD s/p stenting, PVD, AAA repair and CEA; TIA w/ vertebrobasilar syndrome, 2012 lobectomy for NSCLC w/ resultant chronic exertional dyspnea, at least early cognitive impairment, prostatic hypertrophy w/ LUTS, gout. He was admitted here in January with similar issues including celeste on ckd w/ peak creatinine of 5.5 at hospital d/c. That admission was complicated by acute encephalopathy w/ a sustained unresponsive and an apneic episode requiring intubation. During that admission he was transitioned to comfort measures and was ultimately d/c to [facility]. He was started on lasix 40 mg daily IV at 04/01 admission. He presented w/ creatinine 2.7; yesterday creatinine was 3 and today up to 3.4. of note his diuretics had been held after January/ and were restarted at this admission; his last dose of lasix 40 mg IV was this am. he has a liu; renal u/s is pending. he was sitting up in a chair when I saw him early afternoon. it's not clear how reliable a historian he is. He does tell me he has "terrible kidney pain" that started w/ his midday meal. He denies shortness of breath, edema, n/v/abd pain, rash, or musculoskeletal pain. no chest pain or palpitations. Allergies Allergy/AdvReac Type Severity Reaction Status Date / Time Penicillins Allergy Intermediate Rash Verified 04/01/24 11:24 Home Medications Medication Instructions Recorded Confirmed Type allopurinol 100 mg tablet 100 mg PO UD 08/24/21 04/01/24 History atorvastatin 10 mg tablet 10 mg PO HS 08/24/21 04/01/24 History cholecalciferol (vitamin D3) 50 50 mcg PO QAM 08/24/21 04/01/24 History mcg (2,000 unit) tablet (Vitamin D3) clopidogrel 75 mg tablet 75 mg PO HS 08/24/21 04/01/24 History isosorbide mononitrate 60 mg 60 mg PO QAM 08/24/21 04/01/24 History tablet,extended release 24 hr azelastine 137 mcg-fluticasone 50 2 spray intranasal DIRECTED PRN 12/14/22 04/01/24 History mcg/spray nasal spray Nasal Congestion rpkfo-vryeegor-rju-turp-pet 1 ea topical DIRECTED PRN Pain 12/14/22 04/01/24 History topical ointment guaifenesin 600 mg tablet, 600 mg PO Q12H PRN Congestion 12/14/22 04/01/24 History extended release 12 hr (Mucinex) lutein 25 mg-zeaxanthin 5 mg 1 cap PO DAILY 12/14/22 04/01/24 History capsule (Ocuvite Blue Light) aspirin 81 mg tablet,delayed 81 mg PO 3XWK 01/02/24 04/01/24 History release famotidine 20 mg tablet 20 mg PO BID 01/02/24 04/01/24 History sodium bicarbonate 650 mg tablet 650 mg PO TID 01/02/24 04/01/24 History amlodipine 5 mg tablet 10 mg PO DAILY 04/01/24 04/01/24 History finasteride 5 mg tablet 5 mg PO PM 04/01/24 04/01/24 History hydralazine 25 mg tablet 25 mg PO BID 05/02/24 05/02/24 History metoprolol succinate 50 mg 75 mg PO PM 04/01/24 04/01/24 History tablet,extended release 24 hr Patient History Medical History Flash pulmonary edema CKD (chronic kidney disease) stage 4, GFR 15-29 ml/min BPH (benign prostatic hyperplasia) Acute kidney injury superimposed on chronic kidney disease COVID-19 History of GI bleed 07/25/22, pt recently admitted to [facility] for gi bleed. pt "unsure of all the details, but know that I was anemic and had a couple pints of blood." Poor historian Hearing deficit bilat CORREA's Stomach ulcer pt "thinks it's gone now" Arthritis GERD (gastroesophageal reflux disease) Hx of cancer of lung Hx of gout Anemia recently admitted to [facility] for this TIA (transient ischemic attack) X 2 "a few years ago was last one" CAD (coronary atherosclerotic disease) "S/P LAD stent" HTN (hypertension) Surgical History History of colonoscopy History of tooth extraction History of tonsillectomy and adenoidectomy H/O heart artery stent X 4 (? DATE-"maybe 5 years ago" "LAST 2 STENTS PLACED AT [facility], OTHER 2 AT [facility]") S/P lobectomy of lung History of left-sided carotid endarterectomy H/O aortic aneurysm repair 2014 AT [facility] Family History Other No family history of adverse response to anesthesia No significant family history Social History Smoking Status: Former smoker Smoking End Date: ; Second Hand Exposure: No; Do You Dip or Chew Tobacco: No; Hx Alcohol Use: No Hx Substance Use: No Preferred Language: Turkmen Communication Ability: Effective Wrecker Operator Required: No Beliefs That Will Affect Care: None Current Living Situation: Personal Care Facility Current Living Situation Comment: [facility] How many Children do You have: 1 Other Information That Helps Us Care for You: No Feels Safe at Home: Yes Safety Concerns: Feels Safe At This Time Assistive Devices: Walker Review of Systems 2 Review of Systems: All systems reviewed & are unremarkable except as noted in HPI & below Physical Exam 2 Constitutional: well developed (sitting up in chair finishing midday meal on RA alert) and well nourished Eyes: EOM intact bilaterally ENMT: Ears: no external ear abnormality Nose: no external nose abnormality Mouth: + dry oral mucous membranes Neck: no nuchal rigidity Respiratory: normal respiratory effort Auscultation: + diminished lung sounds Cardiovascular: RRR, no murmur, no edema Gastrointestinal (Abdomen): Inspection/Auscultation: normal bowel sounds P ercussion/Palpation: abdomen soft; abdomen nontender flank pain not reproducible Musculoskeletal: Extremities: strength 5/5 throughout Skin: no rashes, warm and dry Neurologic: larson, fluent speech, no tremor Psychiatric: Orientation: alert, oriented to person and cooperative Results & Data Vital Signs (Past 12 Hours) Vital Signs Temp Pulse Pulse Resp BP Pulse Ox O2 Del Method 04/03/24 08:00 Room Air 04/03/24 07:46 36.3 C L 71 18 171/108 H 95 Room Air 04/03/24 07:29 72 04/03/24 03:12 36.9 C 50 L 16 159/84 H 95 Room Air Laboratory Results 04/03/24 05:57 04/03/24 05:57 Diagnostic Findings renal u/s reviewed > no acute issues; BL cysts; cxr today 1. Cardiomegaly and emphysema. Pulmonary vascular congestion has improved from 04/01/2024. 2. Small pleural effusions. These also appear decreased from previous. 3. Hiatal hernia. TTE january 2024 preserved LV function w/ mild to moderate aortic stenosis
--- NOTE | 2024-04-03 12:14 | Ultrasound Report ---
ULTRASOUND KIDNEYS AND BLADDER CLINICAL HISTORY: Acute renal insufficiency. COMPARISON STUDY: Abdominal CT dated 07/26/2022. TECHNIQUE: Real-time, grayscale, and color flow sonography of the kidneys and bladder is performed. I mages are reviewed in the transverse and longitudinal planes. FINDINGS: Kidneys: The kidneys are atrophic. Echotexture is normal. The right kidney measures 7.4 cm in length and the left kidney measures 9.5 cm in length. There is no hydronephrosis. No shadowing renal calcul i are identified. Bilateral renal cysts measure up to 1.8 cm. There is no sonographic evidence of con tour deforming renal mass lesion. No perinephric fluid is identified. Bladder: The bladder is decompressed around a Albert catheter and could not be assessed. IMPRESSION: 1. The kidneys are atrophic and without hydronephrosis. 2. The bladder is decompressed around a Albert catheter and could not be assessed. ACT 112: Negative or not required by law. Electronically signed by: Rylan Ho M.D. 04/03/2024 12:12 PM
--- NOTE | 2024-04-03 16:11 | Hospitalist Progress Note ---
Date of Service April 03, 2024 Assessment & Plan (1) Acute heart failure with preserved ejection fraction: (2) SOB (shortness of breath): (3) Hypertensive urgency: (4) Flash pulmonary edema: (5) Hx of cancer of lung: (6) CAD (coronary atherosclerotic disease): (7) HTN (hypertension): (8) AAA (abdominal aortic aneurysm): Plan Mr. Pérez is an 84 year old male that presents to the ED from [facility] after experiencing acute onset of shortness of breath that started this morning when he went to the bathroom. EMS was called and he was placed on 10 L nonrebreather. Upon arrival to the ED he was able to be weaned off all oxygen. Patient does not wear any supplemental oxygen at baseline. Upon arrival patient hypertensive systolic 170s. Chest x-ray indicated cardiomegaly with emphysema and mild noted CHF. Right greater than left pleural effusions with con solidation. Lasix IV 40 mg given in ED with 300 mL output to start. Patient was recently admitted 01/02 to 01/11 for altered mental status and acute on chronic heart heart failure. Upon discharge he was noted to have hypotension and therefore his diuretic was held but appears was never restarted as an outpatient. No leukocytosis- BNP improved from January 12, 2015> 496. Creatinine 2.69; baseline 2.2-2.6. Incidentally tested positive for enterorhinovirus. Most recent ECHO 01/03/2024; EF 55 to 60% [id number], trace MR, mild TR. ECG today without signs of ischemia. Patient will be admitted for acute on chronic exacerbation of CHF with suspected flash pulmonary edema given the acute resolution of his symptoms. Additionally patient tested positive for rhinovirus; will treat supportively with flutter valve, ISB, Mucinex PRN. Hold on any antibiotics at this time given no leukocytosis and does not appear toxic. Acute on chronic diastolic CHF: Acute on chronic respiratory failure secondary to above -Initially on 10 L NRB--weaned off of supplemental oxygen --CXR: Cardiomegaly and emphysema with evidence of congestive failure. Right larger than left pleural effusions with dependent consolidation. --BNP 496 Received IV Lasix--40 mg on 04/01/2024, 04/02/2024 Continue metoprolol, isosorbide Also on hydralazine No LATHA ARB given renal insufficiency Volume status much improved Monitor I's and O's, daily weight, volume status Currently saturating well on room air No further diuretics for now given worsening creatinine levels Entero/Rhinovirus: Bio fire positive for rhinovirus Droplet precautions Supportive tx with Flutter valve and IS Normal procalcitonin PT/OT as able CELESTE on CKD stage IV --Renal USD:The kidneys are atrophic and without hydronephrosis.The bladder is decompressed around a Albert catheter and could not be assessed. Baseline creatinine ~ 2.6 Cr 3.4 today Monitor renal function Avoid nephrotoxic agents as able Will consult nephrology HTN: Chronic Continue amlodipine, Imdur, metoprolol, hydralazine Monitor BP CAD: AAA: Chronic Status post stent x 1 Continue aspirin, Plavix, metoprolol, statin BPH: Continue finasteride; continue GERD: Continue Famotidine DVT Px: Heparin SQ CODE STATUS: DNR/DNI Disposition PT OT prior to discharge Admission and Anticipated Discharge Date Admission Date: April 01, 2024 Subjective Patient is seen and examined at bedside Sitting in chair during my encounter Dyspnea resolved per patient Noted rising creatinine levels Patient still urinating Denies any significant cough Also denies chest pain, dizziness, nausea, vomiting, abdominal pain Patient eager to get discharged Review of Systems Review of Systems: All systems reviewed & are unremarkable except as noted in Subjective Physical Exam Physical Exam: Physical Exam: Vitals signs as noted above General Appearance:Moderately built and nourished, no apparent distress, Elderly Head: normocephalic, Atraumatic Eyes: normal inspection, EOMI Neck: supple, Trachea midline Respiratory/Chest: Decreased breath sounds, CTA, No accessory muscle use Cardiovascular: S1, S2, +murmur Abdomen/GI:Soft, Non tender, Bowel sounds present Extremities/Musculoskeletal:normal inspection, 1+ pedal edema Neurologic/Psych:AAOX3, grossly no focal neurological deficits Skin: normal color, warm Results & Data Results & Data Vital Signs (Past 12 Hours) Vital Signs Temp Pulse Pulse Resp BP Pulse Ox O2 Del Method 04/03/24 16:06 78 04/03/24 15:08 36.4 C L 77 18 125/86 97 Room Air 04/03/24 08:00 Room Air 04/03/24 07:46 36.3 C L 71 18 171/108 H 95 Room Air 04/03/24 07:29 72 Laboratory Results Short CBC 04/03/24 Range/Units 05:57 WBC 5.93 (4.8-10.8) K/ul Hgb 9.9 L (14.0-18.0) g/dl Hct 29.7 L (42.0-52.0) % Plt Count 208 (130-400) K/uL BMP 04/03/24 05:57 Sodium 137 Potassium 3.7 Chloride 103 Carbon Dioxide 25 BUN 48 H Creatinine 3.43 H D Glucose 104 H Calcium 9.4
--- OUTSIDE RECORDS SUMMARY | 2024-04-04 00:23 | External Medical Summary ---
Author Name Unknown Address Unknown Organization K0G:LAB[facility]ATORY [facility] [address] [place] [id number] Laboratory Report Ordering Provider Test Date Status KWAN BLANCA 04/01/2024 06:17:00 Final Observation Date Value Abnormality Reference (Units ) Status BUN 04/01/2024 06:17:00 40 Above high normal 6-20 (mg/dL) Final Creatinine 04/01/2024 06:17:00 2.8 Above high normal 0.6-1.2 (mg/dL) Final Glomerular filtration rate/1.73 sq M.predicted [Volume Rate/Area] in Serum, Plasma or Blood by Creatinine-based formula (CKD-EPI) 04/01/2024 06:17:00 22 Below low normal >=60 (mL/min) Final eGFR is calculated based on the CKD-EPI 2020 equation Sodium 04/01/2024 06:17:00 138 135-146 (m mol/L) Final Potassium 04/01/2024 06:17:00 4.1 3.5-5.1 (m mol/L) Final Cl 04/01/2024 06:17:00 104 98-107 (mm ol/L) Final CO2 04/01/2024 06:17:00 21 Below low normal 22- 32 (mmol/L) Final Anion gap 04/01/2024 06:17:00 13 7-15 (mmol /L) Final Glucose 04/01/2024 06:17:00 90 70-120 (mg /dL) Final Albumin 04/01/2024 06:17:00 3.5 Below low normal 3.8 -5.0 (g/dL) Final AST (Aspartate aminotransferase) 04/01/2024 06:17:00 13 10-50 (U/L) Fin al Alk Phos 04/01/2024 06:17:00 81 35-130 (U/ L) Final Bilirubin, Total 04/01/2024 06:17:00 0.3 <=1 .2 (mg/dL) Final Calcium 04/01/2024 06:17:00 9.0 8.4-10.2 ( mg/dL) Final Protein 04/01/2024 06:17:00 6.4 6.0-8.3 (g /dL) Final ALT (Alanine aminotransferase) 04/01/2024 06:17:00 9 Below low normal 10-50 (U/L) Final Performing Location LABORATORY [facility] [address] [place] [address]
--- OUTSIDE RECORDS SUMMARY | 2024-04-04 00:23 | External Medical Summary ---
Author Name Unknown Address Unknown Organization K0G:LABORATORY [facility] [[email or web address]] [place] [address] [place] [id number] Laboratory Report Ordering Provider Test Date Status KWAN BLANCA 04/01/2024 06:17:00 Final Observation Date Value Abnormality Reference (Units ) Status WBC, Total 04/01/2024 06:17:00 5.77 4.00-10.8 0 (K/uL) Final RBC 04/01/2024 06:17:00 2.72 4.50-5.25 (M/uL) Final Hemoglobin 04/01/2024 06:17:00 8.7 Below low normal 14 .0-16.8 (g/dL) Final HCT 04/01/2024 06:17:00 26.9 Below low normal 40. 0-48.4 (%) Final MCV 04/01/2024 06:17:00 98.9 82.0-99.5 (fL) Final MCH 04/01/2024 06:17:00 32.0 27.0-34.0 (pg) Final MCHC 04/01/2024 06:17:00 32.3 32.0-36.0 (g/dL) Final RDW 04/01/2024 06:17:00 13.5 11.5-15.5 (%) Final Platelets 04/01/2024 06:17:00 200 140-400 (K /uL) Final MPV 04/01/2024 06:17:00 10.6 6.6-11.1 ( fL) Final Performing Location LABORATORY [facility] [[email or web address]] [place] [address] [place] [id number]
--- OUTSIDE RECORDS SUMMARY | 2024-04-04 00:23 | External Medical Summary | Summary of Care ---
Author Name Unknown Organization [facility] Address [address] [address] Phone [phone] Care Team Providers Care Warehouse Engineer Name Role Phone Aura Jasso MD Primary Care Provider [phone] Encounter Details Date Type Department Care Team (Late st Contact Info) Description 04/01/2024 Orders Only Lab Mobile Phlebotomy [facility] [id number] [place] [id number] Aura Jasso MD [address] [place] [address] [place] [id number] Kidney disease, chronic, stage IV (GFR 15-29 ml/min) ([facility])*; DM type 2, not at goal ([facility]); Heart failure, etiology unknown ([facility]); Chronic kidney disease, stage 4 (severe) ([facility]) Allergies Active Allergy Reactions Criticality Noted Date Comments Lisinopril Cough Medium 05/25/2023 Penicillin G Rash 04/21/2012 documented as of this encounter (statuses as of 04/01/2024) Medications Medication Sig Dispensed Refills Start Date [...] as of this encounter (statuses as of 04/01/2024) Active Problems Problem Noted Date Diagnosed Date Chronic kidney disease, stage 4 (severe) 023 Overview: Per CKD protocol AAA (abdominal aortic aneurysm) 12/28/2015 Overview: 3.8 cm 6/12/14 Malignant neoplasm of upper lobe, 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 documented as of this encounter (statuses as of 04/01/2024) Resolved Problems Problem Noted Date Diagnosed Date Resolved Date Chronic kidney disease, stage 3b 06/09/2023 08/14/2023 Overview: Per CKD protocol documented as of this encounter (statuses as of 04/01/2024) Immunizations Name Administration Dates Next Due Seasonal [...] disease, chronic, stage IV (GFR 15-29 ml/min) ([facility]) DM type 2, not at goal (HCC) Heart failure, etiology unknown (HCC) Chronic kidney disease, stage 4 (severe) ([facility]) 04/01/2024 6:17 AM EDT BNP, NT-PRO Lab Routine Kidney disease, chronic, stage IV (GFR 15-29 ml/min) (HCC) DM type 2, not at goal (HCC) Heart failure, etiology unknown (HCC) Chronic kidney disease, stage 4 (severe) (HCC) 04/01/2024 6:17 AM EDT CBC Lab Routine Kidney disease, chronic, stage IV (GFR 15-29 ml/min) (HCC) DM type 2, not at goal (HCC) Heart failure, etiology unknown (HCC) Chronic kidney disease, stage 4 (severe) (HCC) 04/01/2024 6:17 AM EDT PSA WITH FREE PSA IF INDICATED Lab Routine Kidney disease, chronic, stage IV (GFR 15-29 ml/min) (HCC) DM type 2, not at goal (HCC) Heart failure, etiology unknown (HCC) Chronic kidney disease, stage 4 (severe) (HCC) 04/01/2024 6:17 AM EDT Scheduled Orders Name Type Priority Associated Diagnoses Orde r Schedule COMPREHENSIVE METABOLIC PANEL Lab Routine Kidney disease, chronic, stage IV (GFR 15-29 ml/min) (HCC) DM type 2, not at goal (HCC) Heart failure, etiology unknown (HCC) Chronic kidney disease, stage 4 (severe) (HCC) Expected: 04/01/2024, Expires: 04/01/2025 BNP, NT-PRO Lab Routine Kidney disease, chronic, stage IV (GFR 15-29 ml/min) (HCC) DM type 2, not at goal (HCC) Heart failure, etiology unknown (HCC) Chronic kidney disease, stage 4 (severe) (HCC) Expected: 04/01/2024, Expires: 04/01/2025 CBC Lab Routine Kidney disease, chronic, stage IV (GFR 15-29 ml/min) (HCC) DM type 2, not at goal (HCC) Heart failure, etiology unknown (HCC) Chronic kidney disease, stage 4 (severe) (HCC) Expected: 04/01/2024, Expires: 04/01/2025 PSA WITH FREE PSA IF INDICATED Lab Routine Kidney disease, chronic, stage IV (GFR 15-29 ml/min) (HCC) DM type 2, not at goal (HCC) Heart failure, etiology unknown (HCC) Chronic kidney disease, stage 4 (severe) (HCC) Expected: 04/01/2024, Expires: 04/01/2025 Health Maintenance Due Date Last Done Comments Depression Screening 1952 DTaP,Tdap,and Td Vaccines (1 - Tdap) 1958 Zoster Vaccines (1 of 2) 1989 Nephrology Referral 05/13/2024 05/13/2023 Influenza Vaccine (FLU shot) (Season Ended) 2024 09/01/2021 PTH 08/15/2024 08/15/2023, 05/13/2023 Phosphate 08/15/2024 08/15/2023, 09/0 05/2018, 08/13/2013 AAA Monitoring 08/21/2024 08/21/2023, 08/0 12/2021, 01/27/2017, Additional history exists Albumin/Creatinine Ratio 02/04/2025 024, 08/15/2023, 05/06/2023 Hgb 03/04/2025 03/04/2024, 01/30, 02/05/2024, Additional history exists COVID-19 Vaccine Completed 09/12/2023 [...] disease, chronic, stage IV (GFR 15-29 ml/min) (HCC)- Primary Chronic kidney disease, Stage IV (severe) DM type 2, not at goal (HCC) Type II or unspecified type diabetes mellitus without mention of complication, not stated as uncontrolled Heart failure, etiology unknown (HCC) Heart failure, unspecified Chronic kidney disease, stage 4 (severe) (HCC) documented in this encounter Care Teams Warehouse Engineer Relationship Specialty Start Date End Date Aura Jasso MD [address] [place] [address] [place] [id number] PCP - General 01/16/01 documented as of this encounter
[2024-04-04 03:56] LABS: Hematocrit (blood only) 28.9 % (42.0-52.0); Hemoglobin 9.8 g/dl (14.0-18.0); Mean Corpuscular Hemoglobin 31.9 pg (25.0-34.0); Mean Corpuscular Hgb Conc 33.9 g/dL (32.0-36.0); Mean Corpuscular Volume 94.1 fL (80.0-100.0); Mean Platelet Volume 10.1 fL (9.4-12.4); Platelet Count 203 K/uL (130-400); RDW Coefficient of Variation 13.5 % (11.5-14.5); RDW Standard Deviation 46.5 fL (36.4-46.3); Red Blood Count 3.07 M/uL (4.70-6.10); White Blood Count 6.85 K/ul (4.8-10.8)
[2024-04-04 04:22] LABS: BUN Creatinine Ratio 15.9 (10-20); Calcium 9.3 mg/dl (8.6-10.3); Creatinine Clr Calc Pharmacy 13.6 ml/min; Est GFR (African American) 16.3 ml/min; Potassium 3.9 mmol/L (3.5-5.1)
[2024-04-04] MEDS: MAGNESIUM SULFATE / D5W 1 GM/100 ML BAG IV ONE (08:47)
--- NOTE | 2024-04-04 10:51 | Nephrology Progress Note ---
Date of Service April 04, 2024 Assessment & Plan (1) Acute on chronic renal failure: Plan: stage 1 nonoliguric acute on chronic renal failure. his renal function initially improved somewhat but worse today. worsening nonoliguric acute on advanced chronic renal failure in the setting of resumption of diuretics after not using them since early January. He has been quite hypertensive generally w/ sbp in 150s-160s baseline creatinine 2.2-2.6. no obstruction or acute/reversible process on u/s. not a dialysis candidate should the need arise d/t his overall goals of care -daily bmp -continue to avoid/minimize nephrotoxins -still w/ mild volume overload as evidenced by CXR yesterday > he initially improved kidneywise and is overall clinically improved; chemistries acceptable >> will continue to hold lasix for now though could give prn (2) Acute on chronic heart failure with normal ejection fraction: Plan: hold lasix for now > reevaluate for need in AM >continue metoprolol, imdur, statin, clopidogrel, ASA >continue hydralazine, amlodipine current doses -cont 1.8 L FR -cont strict I/O Admission and Anticipated Discharge Date Admission Date: April 01, 2024 Subjective c/o L anterior thigh pain; no sob, no n/v. no longer w/ flank pain Review of Systems 2 Review of Systems: All systems reviewed & are unremarkable except as noted in Subjective (limited by pt limited insight) Physical Exam 2 Constitutional: well developed (sitting up in chair on RA alert) and well nourished Eyes: EOM intact bilaterally ENMT: Ears: no external ear abnormality Nose: no external nose abnormality Mouth: + dry oral mucous membranes Neck: no nuchal rigidity Respiratory: normal respiratory effort Auscultation: + diminished lung sounds Cardiovascular: RRR, no murmur, no edema Gastrointestinal (Abdomen): Inspection/Auscultation: normal bowel sounds P ercussion/Palpation: abdomen soft; abdomen nontender Musculoskeletal: Extremities: strength 5/5 throughout Skin: no rashes, warm and dry Psychiatric: Orientation: alert, oriented to person and cooperative Results & Data Vital Signs (Past 12 Hours) Vital Signs Temp Pulse Pulse Resp BP Pulse Ox O2 Del Method 04/04/24 07:50 36.3 C L 64 18 167/83 H 97 Room Air 04/04/24 07:38 69 04/04/24 03:33 36.4 C L 63 18 165/81 H 96 Room Air 04/03/24 23:27 36.6 C 65 18 133/74 95 Room Air Laboratory Results 04/04/24 03:32 04/04/24 03:32
[2024-04-04] MEDS ORDERED: DICLOFENAC SOD 1% GEL 100 GM TUBE EXT PRN (12:57)
--- NOTE | 2024-04-04 16:45 | Hospitalist Progress Note ---
Date of Service April 04, 2024 Assessment & Plan (1) Acute heart failure with preserved ejection fraction: (2) SOB (shortness of breath): (3) Hypertensive urgency: (4) Flash pulmonary edema: (5) Hx of cancer of lung: (6) CAD (coronary atherosclerotic disease): (7) HTN (hypertension): (8) AAA (abdominal aortic aneurysm): Plan Mr. Pérez is an 84 year old male that presents to the ED from [facility] after experiencing acute onset of shortness of breath that started this morning when he went to the bathroom. EMS was called and he was placed on 10 L nonrebreather. Upon arrival to the ED he was able to be weaned off all oxygen. Patient does not wear any supplemental oxygen at baseline. Upon arrival patient hypertensive systolic 170s. Chest x-ray indicated cardiomegaly with emphysema and mild noted CHF. Right greater than left pleural effusions with con solidation. Lasix IV 40 mg given in ED with 300 mL output to start. Patient was recently admitted 01/02 to 01/11 for altered mental status and acute on chronic heart heart failure. Upon discharge he was noted to have hypotension and therefore his diuretic was held but appears was never restarted as an outpatient. No leukocytosis- BNP improved from January 12, 2015> 496. Creatinine 2.69; baseline 2.2-2.6. Incidentally tested positive for enterorhinovirus. Most recent ECHO 01/03/2024; EF 55 to 60% G1DDX, trace MR, mild TR. ECG today without signs of ischemia. Patient will be admitted for acute on chronic exacerbation of CHF with suspected flash pulmonary edema given the acute resolution of his symptoms. Additionally patient tested positive for rhinovirus; will treat supportively with flutter valve, ISB, Mucinex PRN. Hold on any antibiotics at this time given no leukocytosis and does not appear toxic. Acute on chronic diastolic CHF: Acute on chronic respiratory failure secondary to above -Initially on 10 L NRB--weaned off of supplemental oxygen --CXR: Cardiomegaly and emphysema with evidence of congestive failure. Right larger than left pleural effusions with dependent consolidation. --BNP 496 Received IV Lasix--40 mg on 04/01/2024, 04/02/2024 Continue metoprolol, isosorbide Also on hydralazine No LATHA ARB given renal insufficiency Monitor I's and O's, daily weight, volume status Currently saturating well on room air No further diuretics for now Volume status stable Entero/Rhinovirus: Bio fire positive for rhinovirus Droplet precautions Supportive tx with Flutter valve and IS Normal procalcitonin PT/OT as able stable CELESTE on CKD stage IV --Renal USD:The kidneys are atrophic and without hydronephrosis.The bladder is decompressed around a Albert catheter and could not be assessed. Baseline creatinine ~ 2.6 Cr 3.7 today Monitor renal function Avoid nephrotoxic agents as able Nephrology following Patient's son expresses that patient would not be interested in dialysis if creatinine continues to worsen Monitor urine output HTN: Chronic Continue amlodipine, Imdur, metoprolol, hydralazine Monitor BP CAD: AAA: Chronic Status post stent x 1 Continue aspirin, Plavix, metoprolol, statin BPH: Continue finasteride; continue GERD: Continue Famotidine DVT Px: Heparin SQ CODE STATUS: DNR/DNI Disposition PT OT prior to discharge Admission and Anticipated Discharge Date Admission Date: April 01, 2024 Subjective Patient is seen and examined at bedside States having left leg pain intermittently No other complaints Cr levels continue to rise Updated patient's son over the phone Denies chest pain, dizziness, nausea, vomiting, abdominal pain Saturating well on room air Review of Systems Review of Systems: All systems reviewed & are unremarkable except as noted in Subjective Physical Exam Physical Exam: Physical Exam: Vitals signs as noted above General Appearance:Moderately built and nourished, no apparent distress, Elderly Head: normocephalic, Atraumatic Eyes: normal inspection, EOMI Neck: supple, Trachea midline Respiratory/Chest: Decreased breath sounds, CTA, No accessory muscle use Cardiovascular: S1, S2, +murmur Abdomen/GI:Soft, Non tender, Bowel sounds present Extremities/Musculoskeletal:normal inspection, 1+ pedal edema Neurologic/Psych:AAOX3, grossly no focal neurological deficits Skin: normal color, warm Results & Data Results & Data Vital Signs (Past 12 Hours) Vital Signs Temp Pulse Pulse Resp BP Pulse Ox O2 Del Method 04/04/24 16:08 73 04/04/24 16:00 36.5 C 18 L 66 H 155/78 H 94 Room Air 04/04/24 14:59 Room Air 04/04/24 11:12 36.4 C L 69 18 118/58 L 96 Room Air 04/04/24 07:50 36.3 C L 64 18 167/83 H 97 Room Air 04/04/24 07:38 69 Laboratory Results Short CBC 04/04/24 Range/Units 03:32 WBC 6.85 (4.8-10.8) K/ul Hgb 9.8 L (14.0-18.0) g/dl Hct 28.9 L (42.0-52.0) % Plt Count 203 (130-400) K/uL BMP 04/04/24 03:32 Sodium 137 Potassium 3.9 Chloride 103 Carbon Dioxide 24 BUN 59 H Creatinine 3.70 H Glucose 106 H Calcium 9.3
--- NOTE | 2024-04-04 20:50 | Electrocardiogram Report ---
Test Reason : Blood Pressure : / mmHG Vent. Rate : 087 BPM Atrial Rate : 087 BPM P-R Int : 182 ms QRS Dur : 086 ms QT Int : 388 ms P-R-T Axes : 055 038 047 degrees QTc Int : 466 ms Normal sinus rhythm Minimal voltage criteria for LVH, may be normal variant ( Sokolow-Mittal ) Nonspecific ST abnormality Abnormal ECG When compared with ECG of 06-JAN-2024 02:05, Vent. rate has increased BY [address] no longer elevated in Anterior leads T wave inversion no longer evident in Inferior leads T wave amplitude has decreased in Anterior leads Confirmed by Reymundo Mckeon ([id number]) on 04/04/2024 8:49:31 PM Referred By: REFERRED SELF Confirmed By:Reymundo Mckeon
--- NOTE | 2024-04-04 23:01 | Electrocardiogram Report ---
Test Reason : Blood Pressure : / mmHG Vent. Rate : 074 BPM Atrial Rate : 074 BPM P-R Int : 190 ms QRS Dur : 096 ms QT Int : 420 ms P-R-T Axes : 074 060 063 degrees QTc Int : 466 ms Sinus rhythm with occasional Premature ventricular complexes Voltage criteria for left ventricular hypertrophy Abnormal ECG When compared with ECG of 01-APR-2024 08:04, (unconfirmed) Premature ventricular complexes are now Present Confirmed by Reymundo Mckeon ([id number]) on 04/04/2024 11:00:56 PM Referred By: REFERRED SELF Confirmed By:Reymundo Mckeon
[2024-04-05 07:01] LABS: Creatinine Clr Calc Pharmacy 12.4 ml/min; Est GFR (African American) 14.5 ml/min; Est GFR (Non-African American) 12.5 ml/min; Magnesium 2.6 mg/dl (1.7-2.4); Potassium 3.9 mmol/L (3.5-5.1)
--- NOTE | 2024-04-05 10:32 | Nephrology Progress Note ---
Date of Service April 05, 2024 Assessment & Plan (1) Acute on chronic renal failure: Plan: further worsening but still stage 1 nonoliguric acute on chronic renal failure. his renal function initially improved somewhat but worse today. CELESTE had been attributed to resumption of diuretics after not using them since early January (had lasix 40 mg IV x 2 on 04/01 and once on 04/02); however renal function has worsened w/ holding diuretics. He has been quite hypertensive generally w/ sbp in 150s-160s baseline creatinine 2.2-2.6. no obstruction or acute/reversible process on u/s. not a dialysis candidate should the need arise d/t his overall goals of care -daily bmp -continue to avoid/minimize nephrotoxins >repeat CXR today and use to guide decision about resuming diuretics >> vol OL worse on XR and will resume diuretics w/ lasix 60 mg tid IV; he had been getting 40 mg IV bid >continue liu >>needs daily STANDING weights- so ordered (2) Acute on chronic heart failure with normal ejection fraction: Plan: resuming diuretics as above >continue metoprolol, imdur, statin, clopidogrel, ASA >continue hydralazine, amlodipine current doses -cont 1.8 L FR -cont strict I/O Admission and Anticipated Discharge Date Admission Date: April 01, 2024 Subjective no interval events. c/o both legs hurting but alana prox L leg (did c/o this yesterday); ambulating cautiously w/ PT; not a fully reliable historian Review of Systems 2 Review of Systems: All systems reviewed & are unremarkable except as noted in Subjective Physical Exam 2 Constitutional: well developed (ambulating w/walker on RA alert) and well nourished Eyes: EOM intact bilaterally ENMT: Ears: no external ear abnormality Nose: no external nose abnormality Mouth: + dry oral mucous membranes Neck: no nuchal rigidity Respiratory: normal respiratory effort Auscultation: + diminished lung sounds Cardiovascular: RRR, no murmur, no edema Gastrointestinal (Abdomen): Inspection/Auscultation: normal bowel sounds P ercussion/Palpation: abdomen soft; abdomen nontender Musculoskeletal: Extremities: strength 5/5 throughout Skin: no rashes, warm and dry Psychiatric: Orientation: alert, oriented to person, oriented to place and cooperative Results & Data Vital Signs (Past 12 Hours) Vital Signs Temp Pulse Pulse Resp BP BP Pulse Ox 04/05/24 08:56 36.7 C 68 18 158/79 H 95 04/05/24 07:38 04/05/24 07:08 67 04/05/24 03:52 37 C 72 18 152/77 H 95 04/04/24 23:09 37 C 72 16 151/77 H 96 O2 Del Method 04/05/24 08:56 Room Air 04/05/24 07:38 Room Air 04/05/24 07:08 04/05/24 03:52 Room Air 04/04/24 23:09 Room Air Laboratory Results 04/04/24 03:32 04/05/24 05:31
[2024-04-05] MEDS: FUROSEMIDE 40 MG/4 ML VIAL IV SCH (13:31)
--- NOTE | 2024-04-05 15:46 | XRay Report ---
XR chest 1V portable CLINICAL HISTORY: f/u pl effusions/vol status TECHNIQUE: Single frontal radiograph of the chest was obtained. Comparison: Comparison is made to chest radiograph 04/03/2024 FINDINGS: No lines and tubes are seen. The cardiomediastinal silhouette is normal. No airspace opacities are se en. There is atelectasis at the left lung base, similar to prior. Small left pleural effusion. IMPRESSION: Small left pleural effusion with underlying atelectasis, similar to prior exam. ACT 112: Negative or not required by law. Electronically signed by: Jeyson Arana M.D. 04/05/2024 3:44 PM
--- NOTE | 2024-04-05 16:36 | Hospitalist Progress Note ---
Date of Service April 05, 2024 Assessment & Plan (1) Acute heart failure with preserved ejection fraction: (2) SOB (shortness of breath): (3) Hypertensive urgency: (4) Flash pulmonary edema: (5) Hx of cancer of lung: (6) CAD (coronary atherosclerotic disease): (7) HTN (hypertension): (8) AAA (abdominal aortic aneurysm): Plan Mr. Pérez is an 84 year old male that presents to the ED from [facility] after experiencing acute onset of shortness of breath that started this morning when he went to the bathroom. EMS was called and he was placed on 10 L nonrebreather. Upon arrival to the ED he was able to be weaned off all oxygen. Patient does not wear any supplemental oxygen at baseline. Upon arrival patient hypertensive systolic 170s. Chest x-ray indicated cardiomegaly with emphysema and mild noted CHF. Right greater than left pleural effusions with con solidation. Lasix IV 40 mg given in ED with 300 mL output to start. Patient was recently admitted 01/02 to 01/11 for altered mental status and acute on chronic heart heart failure. Upon discharge he was noted to have hypotension and therefore his diuretic was held but appears was never restarted as an outpatient. No leukocytosis- BNP improved from January 12, 2015> 496. Creatinine 2.69; baseline 2.2-2.6. Incidentally tested positive for enterorhinovirus. Most recent ECHO 01/03/2024; EF 55 to 60% G1DDX, trace MR, mild TR. ECG today without signs of ischemia. Patient will be admitted for acute on chronic exacerbation of CHF with suspected flash pulmonary edema given the acute resolution of his symptoms. Additionally patient tested positive for rhinovirus; will treat supportively with flutter valve, ISB, Mucinex PRN. Hold on any antibiotics at this time given no leukocytosis and does not appear toxic. Acute on chronic diastolic CHF: Acute on chronic respiratory failure secondary to above -Initially on 10 L NRB--weaned off of supplemental oxygen --CXR: Cardiomegaly and emphysema with evidence of congestive failure. Right larger than left pleural effusions with dependent consolidation. --BNP 496 Received IV Lasix--40 mg on 04/01/2024, 04/02/2024 Continue metoprolol, isosorbide Also on hydralazine No LATHA ARB given renal insufficiency Monitor I's and O's, daily weight, volume status Currently saturating well on room air Given chest x-ray showed no change in pleural effusion, be started on diuretics Appreciate nephrology input Started on Lasix 60 mg 3 times daily Also on fluid restriction Entero/Rhinovirus: Bio fire positive for rhinovirus Droplet precautions Supportive tx with Flutter valve and IS Normal procalcitonin PT/OT as able Saturating well on room air CELESTE on CKD stage IV --Renal USD:The kidneys are atrophic and without hydronephrosis.The bladder is decompressed around a Albert catheter and could not be assessed. Baseline creatinine ~ 2.6 Cr 4.07 today Monitor renal function Avoid nephrotoxic agents as able Nephrology following Patient's son expresses that patient would not be interested in dialysis if creatinine continues to worsen Monitor urine output HTN: Chronic Continue amlodipine, Imdur, metoprolol, hydralazine Monitor BP CAD: AAA: Chronic Status post stent x 1 Continue aspirin, Plavix, metoprolol, statin BPH: Continue finasteride; continue GERD: Continue Famotidine DVT Px: Heparin SQ CODE STATUS: DNR/DNI Disposition To be determined Admission and Anticipated Discharge Date Admission Date: April 01, 2024 Subjective Patient is seen and examined at bedside History unreliable Denies any leg pain today Had PT earlier today Creatinine levels continue to rise Denies chest pain, dizziness, nausea, vomiting, abdominal pain Review of Systems Review of Systems: All systems reviewed & are unremarkable except as noted in Subjective Physical Exam Physical Exam: Physical Exam: Vitals signs as noted above General Appearance:Moderately built and nourished, no apparent distress, Elderly Head: normocephalic, Atraumatic Eyes: normal inspection, EOMI Neck: supple, Trachea midline Respiratory/Chest: Decreased breath sounds, CTA, No accessory muscle use Cardiovascular: S1, S2, +murmur Abdomen/GI:Soft, Non tender, Bowel sounds present Extremities/Musculoskeletal:normal inspection, 1+ pedal edema Neurologic/Psych:AAOX3, grossly no focal neurological deficits Skin: normal color, warm Results & Data Results & Data Vital Signs (Past 12 Hours) Vital Signs Temp Pulse Pulse Resp BP Pulse Ox O2 Del Method 04/05/24 14:55 81 04/05/24 14:46 36.7 C 72 16 131/67 96 Room Air 04/05/24 12:32 36.7 C 73 18 110/72 95 Room Air 04/05/24 08:56 36.7 C 68 18 158/79 H 95 Room Air 04/05/24 07:38 Room Air 04/05/24 07:08 67 Laboratory Results [facility] 04/05/24 05:31 Sodium 138 Potassium 3.9 Chloride 104 Carbon Dioxide 24 BUN 65 H Creatinine 4.07 H D Glucose 97 Calcium 9.0
[2024-04-05] MEDS: SODIUM BICARBONATE 650 MG TAB PO SCH (20:41)
[2024-04-06 07:27] LABS: BUN Creatinine Ratio 18.6 (10-20); Calcium 9.2 mg/dl (8.6-10.3); Creatinine Clr Calc Pharmacy 12.7 ml/min; Est GFR (African American) 14.9 ml/min; Est GFR (Non-African American) 12.9 ml/min; Potassium 3.6 mmol/L (3.5-5.1)
--- NOTE | 2024-04-06 12:12 | Nephrology Progress Note ---
Date of Service April 06, 2024 Assessment & Plan (1) Acute on chronic renal failure: Plan: plateau'd and still stage 1 nonoliguric acute on chronic renal failure. his renal function initially improved somewhat but worse past few days. CELESTE had been attributed to resumption of diuretics after not using them since early January (had lasix 40 mg IV x 2 on 04/01 and once on 04/02); however renal function has worsened w/ holding diuretics. He has been quite hypertensive generally w/ sbp in 150s-160s unchanged on diuretics baseline creatinine 2.2-2.6. no obstruction or acute/reversible process on u/s. not a dialysis candidate should the need arise d/t his overall goals of care -daily bmp -continue to avoid/minimize nephrotoxins >> vol OL worse on 04/05 XR and will cont diuretics w/ lasix 60 mg tid IV; he had been getting 40 mg IV bid >continue liu >>needs daily STANDING weights- so ordered but none today (2) Acute on chronic heart failure with normal ejection fraction: Plan: resuming diuretics as above >continue metoprolol, imdur, statin, clopidogrel, ASA >continue hydralazine, amlodipine current doses -cont 1.8 L FR -cont strict I/O Admission and Anticipated Discharge Date Admission Date: April 01, 2024 Subjective seen on midday rounds; c/o L knee pain. no sob, no n/v or decreased po Review of Systems 2 Review of Systems: All systems reviewed & are unremarkable except as noted in Subjective Physical Exam 2 Constitutional: well developed (sitting up in chair on RA alert) and well nourished Eyes: EOM intact bilaterally ENMT: Ears: no external ear abnormality Nose: no external nose abnormality Mouth: + dry oral mucous membranes Neck: no nuchal rigidity Respiratory: normal respiratory effort Auscultation: + diminished lung sounds Cardiovascular: RRR, no murmur, no edema Gastrointestinal (Abdomen): Inspection/Auscultation: normal bowel sounds P ercussion/Palpation: abdomen soft; abdomen nontender Musculoskeletal: Extremities: strength 5/5 throughout Skin: no rashes, warm and dry Psychiatric: Orientation: alert, oriented to person, oriented to place and cooperative Results & Data Vital Signs (Past 12 Hours) Vital Signs Temp Pulse Resp BP Pulse Ox O2 Del Method 04/06/24 11:16 36.7 C 74 16 152/78 H 94 Room Air 04/06/24 10:59 Room Air 04/06/24 07:56 36.4 C L 65 16 157/95 H 97 Room Air 04/06/24 03:35 36.5 C 66 18 164/81 H 96 Room Air Laboratory Results 04/04/24 03:32 04/06/24 06:18
--- NOTE | 2024-04-06 17:05 | Hospitalist Progress Note ---
Date of Service April 06, 2024 Assessment & Plan (1) Acute heart failure with preserved ejection fraction: (2) SOB (shortness of breath): (3) Hypertensive urgency: (4) Flash pulmonary edema: (5) Hx of cancer of lung: (6) CAD (coronary atherosclerotic disease): (7) HTN (hypertension): (8) AAA (abdominal aortic aneurysm): Plan Mr. Pérez is an 84 year old male that presents to the ED from [facility] after experiencing acute onset of shortness of breath that started this morning when he went to the bathroom. EMS was called and he was placed on 10 L nonrebreather. Upon arrival to the ED he was able to be weaned off all oxygen. Patient does not wear any supplemental oxygen at baseline. Upon arrival patient hypertensive systolic 170s. Chest x-ray indicated cardiomegaly with emphysema and mild noted CHF. Right greater than left pleural effusions with con solidation. Lasix IV 40 mg given in ED with 300 mL output to start. Patient was recently admitted 01/02 to 01/11 for altered mental status and acute on chronic heart heart failure. Upon discharge he was noted to have hypotension and therefore his diuretic was held but appears was never restarted as an outpatient. No leukocytosis- BNP improved from January 12, 2015> 496. Creatinine 2.69; baseline 2.2-2.6. Incidentally tested positive for enterorhinovirus. Most recent ECHO 01/03/2024; EF 55 to 60% G1DDX, trace MR, mild TR. ECG today without signs of ischemia. Patient will be admitted for acute on chronic exacerbation of CHF with suspected flash pulmonary edema given the acute resolution of his symptoms. Additionally patient tested positive for rhinovirus; will treat supportively with flutter valve, ISB, Mucinex PRN. Hold on any antibiotics at this time given no leukocytosis and does not appear toxic. Acute on chronic diastolic CHF: Acute on chronic respiratory failure secondary to above -Initially on 10 L NRB--weaned off of supplemental oxygen --CXR: Cardiomegaly and emphysema with evidence of congestive failure. Right larger than left pleural effusions with dependent consolidation. --BNP 496 Received IV Lasix--40 mg on 04/01/2024, 04/02/2024 Continue metoprolol, isosorbide Also on hydralazine No LATHA ARB given renal insufficiency Monitor I's and O's, daily weight, volume status Currently saturating well on room air Given chest x-ray showed no change in pleural effusion, be started on diuretics Appreciate nephrology input Also on fluid restriction Cr levels better today Continue IV lasix per Nephrology Entero/Rhinovirus: Bio fire positive for rhinovirus Droplet precautions Supportive tx with Flutter valve and IS Normal procalcitonin PT/OT as able Saturating well on room air CELESTE on CKD stage IV --Renal USD:The kidneys are atrophic and without hydronephrosis.The bladder is decompressed around a Albert catheter and could not be assessed. Baseline creatinine ~ 2.6 Cr 3.98 today Monitor renal function Avoid nephrotoxic agents as able Nephrology following Patient's son expresses that patient would not be interested in dialysis if creatinine continues to worsen Monitor urine output HTN: Chronic Continue amlodipine, Imdur, metoprolol, hydralazine Monitor BP CAD: AAA: Chronic Status post stent x 1 Continue aspirin, Plavix, metoprolol, statin BPH: Continue finasteride; continue GERD: Continue Famotidine DVT Px: Heparin SQ CODE STATUS: DNR/DNI Disposition To be determined Admission and Anticipated Discharge Date Admission Date: April 01, 2024 Subjective Patient is seen and examined at bedside History unreliable No new complaints feels well today Cr levels improving Denies chest pain, dizziness, nausea, vomiting, abdominal pain Review of Systems Review of Systems: All systems reviewed & are unremarkable except as noted in Subjective Physical Exam Physical Exam: Physical Exam: Vitals signs as noted above General Appearance:Moderately built and nourished, no apparent distress, Elderly Head: normocephalic, Atraumatic Eyes: normal inspection, EOMI Neck: supple, Trachea midline Respiratory/Chest: Decreased breath sounds, CTA, No accessory muscle use Cardiovascular: S1, S2, +murmur Abdomen/GI:Soft, Non tender, Bowel sounds present Extremities/Musculoskeletal:normal inspection, 1+ pedal edema Neurologic/Psych:AAOX3, grossly no focal neurological deficits Skin: normal color, warm Results & Data Results & Data Vital Signs (Past 12 Hours) Vital Signs Temp Pulse Pulse Resp BP Pulse Ox O2 Del Method 04/06/24 15:17 36.7 C 72 15 172/68 H 96 Room Air 04/06/24 13:45 61 04/06/24 12:21 96 04/06/24 11:16 36.7 C 74 16 152/78 H 94 Room Air 04/06/24 10:59 Room Air 04/06/24 07:56 36.4 C L 65 16 157/95 H 97 Room Air O2 Flow Rate 04/06/24 15:17 04/06/24 13:45 04/06/24 12:21 0 04/06/24 11:16 04/06/24 10:59 04/06/24 07:56 Laboratory Results [facility] 04/06/24 06:18 Sodium 139 Potassium 3.6 Chloride 102 Carbon Dioxide 24 BUN 74 H Creatinine 3.98 H Glucose 107 H Calcium 9.2
[2024-04-07 06:47] LABS: Hematocrit (blood only) 32.1 % (42.0-52.0); Hemoglobin 10.6 g/dl (14.0-18.0); Mean Corpuscular Hemoglobin 31.4 pg (25.0-34.0); Platelet Count 203 K/uL (130-400); RDW Coefficient of Variation 13.3 % (11.5-14.5); RDW Standard Deviation 46.3 fL (36.4-46.3); Red Blood Count 3.38 M/uL (4.70-6.10); White Blood Count 6.68 K/ul (4.8-10.8)
[2024-04-07 07:15] LABS: BUN Creatinine Ratio 18.4 (10-20); Calcium 9.5 mg/dl (8.6-10.3); Creatinine Clr Calc Pharmacy 13.1 ml/min; Est GFR (African American) 15.5 ml/min; Est GFR (Non-African American) 13.4 ml/min; Magnesium 2.5 mg/dl (1.7-2.4); Potassium 3.5 mmol/L (3.5-5.1)
--- NOTE | 2024-04-07 10:38 | Hospitalist Progress Note ---
Date of Service April 07, 2024 Assessment & Plan (1) Acute heart failure with preserved ejection fraction: (2) SOB (shortness of breath): (3) Hypertensive urgency: (4) Flash pulmonary edema: (5) Hx of cancer of lung: (6) CAD (coronary atherosclerotic disease): (7) HTN (hypertension): (8) AAA (abdominal aortic aneurysm): Plan 84 year old male that presents to the ED from [facility] after experiencing acute onset of shortness of breath that started on morning of presentation. Recently admitted 01/02 to 01/11 for altered mental status and acute on chronic heart heart failure. Upon discharge he was noted to have hypotension and therefore his diuretic was held but appears was never restarted as an outpatient EMS was called and he was placed on 10 L nonrebreather. In ER, he was weaned off all oxygen. No oxygen use at baseline. Upon arrival patient hypertensive systolic 170s. Chest x-ray indicated cardiomegaly with emphysema and mild noted CHF. Right greater than left pleural effusions with consolidation. No leukocytosis BNP improved from January 12, 2015> 496. Creatinine 2.69; baseline 2.2-2.6. Resp PCR was + for entero/rhinovirus. Most recent ECHO 01/03/2024; EF 55 to 60% G1DDX, trace MR, mild TR. Acute on chronic diastolic CHF: Acute on chronic respiratory failure secondary to above -Initially on 10 L NRB--weaned off of supplemental oxygen --CXR: Cardiomegaly and emphysema with evidence of congestive failure. Right la rger than left pleural effusions with dependent consolidation. --BNP 496 Received IV Lasix--40 mg on 04/01/2024, 04/02/2024 Continue metoprolol, isosorbide Also on hydralazine No LATHA ARB given renal insufficiency Monitor I's and O's, daily weight, volume status Currently saturating well on room air Given chest x-ray showed no change in pleural effusion, be started on diuretics Nephrology on board managing diuretics Entero/Rhinovirus: Bio fire positive for rhinovirus Normal procalcitonin PT/OT as able Saturating well on room air CELESTE on CKD stage IV --Renal USD:The kidneys are atrophic and without hydronephrosis.The bladder is decompressed around a Albert catheter and could not be assessed. Baseline creatinine ~ 2.6 Cr 3.85 today Monitor renal function Avoid nephrotoxic agents as able Nephrology on board Per previous Provider, Patient/family not interested in dialysis HTN: Chronic Continue amlodipine, Imdur, metoprolol, hydralazine Monitor BP CAD: AAA: Chronic Status post stent x 1 Continue aspirin, Plavix, metoprolol, statin BPH: Continue finasteride; continue GERD: Continue Famotidine DVT Px: Heparin SQ CODE STATUS: DNR/DNI I spent a total of 45 minutes coordinating, documenting and providing care for this patient excluding time spent in performance of separately billed services Admission and Anticipated Discharge Date Admission Date: April 01, 2024 Subjective Patient seen and examined Patient denies any complaints on review of systems today. Physical Exam Constitutional: + well hydrated; no acute distress Eyes: PERRL, conjunctivae normal, anicteric sclerae ENMT: external ear and nose normal, oropharynx normal Respiratory: normal respiratory effort, lungs clear to auscultation Cardiovascular: S1 S2 Gastrointestinal (Abdomen): normal bowel sounds, soft, nontender, no hepatosplenomegaly Musculoskeletal: No pedal edema Neurologic: PERRL, EOMI, accommodation nl, no face palsy, no dysarthria Psychiatric: A+Ox3, euthymic affect Results & Data Results & Data Vital Signs (Past 12 Hours) Vital Signs Temp Pulse Pulse Resp BP Pulse Ox O2 Del Method 04/07/24 09:42 65 04/07/24 08:30 36.9 C 79 20 154/76 H 96 Room Air 04/07/24 04:11 36.9 C 65 20 153/69 H 95 Room Air 04/06/24 23:59 72 04/06/24 23:12 36.9 C 75 18 154/76 H 95 Room Air Laboratory Results Abnormal lab results 04/07/24 Range/Units 06:12 RBC 3.38 L (4.70-6.10) M/uL Hgb 10.6 L (14.0-18.0) g/dl Hct 32.1 L (42.0-52.0) % BUN 71 H (6-23) mg/dl Creatinine 3.85 H (0.6-1.4) mg/dl Glucose 109 H (70-99(Fasting)) mg/dl Magnesium 2.5 H (1.7-2.4) mg/dl
--- NOTE | 2024-04-07 18:28 | Nephrology Progress Note ---
Date of Service April 07, 2024 Assessment & Plan (1) Acute on chronic renal failure: Plan: plateau'd and still stage 1 nonoliguric acute on chronic renal failure. his renal function initially improved somewhat but worse past few days. CELESTE had been attributed to resumption of diuretics after not using them since early January (had lasix 40 mg IV x 2 on 04/01 and once on 04/02); however renal function has worsened w/ holding diuretics. He has been quite hypertensive generally w/ sbp in 150s-160s unchanged on diuretics baseline creatinine 2.2-2.6. no obstruction or acute/reversible process on u/s. not a dialysis candidate should the need arise d/t his overall goals of care over 6L negative from 04/05-04/07 -daily bmp -continue to avoid/minimize nephrotoxins >> vol OL worse on 04/05 XR and will cont diuretics w/ lasix 60 mg tid IV; he had been getting 40 mg IV bid >>consider po diuretics in AM depending on status >continue liu >>needs daily STANDING weights- so ordered but none today; re-requested (2) Acute on chronic heart failure with normal ejection fraction: Plan: resuming diuretics as above >continue metoprolol, imdur, statin, clopidogrel, ASA >continue hydralazine, amlodipine current doses -cont 1.8 L FR -cont strict I/O Admission and Anticipated Discharge Date Admission Date: April 01, 2024 Subjective no interval events; pt seen midday; lying quietly in bed; denies sob, n/v, edema. does not mention leg pain today Review of Systems 2 Review of Systems: All systems reviewed & are unremarkable except as noted in Subjective Physical Exam 2 Constitutional: well developed (dosing in bed flat on RA, wakens fully) and well nourished Eyes: EOM intact bilaterally ENMT: Ears: no external ear abnormality Nose: no external nose abnormality Mouth: + dry oral mucous membranes Neck: no nuchal rigidity Respiratory: normal respiratory effort Auscultation: + diminished lung sounds Cardiovascular: RRR, no murmur, no edema Gastrointestinal (Abdomen): Inspection/Auscultation: normal bowel sounds P ercussion/Palpation: abdomen soft; abdomen nontender Musculoskeletal: Extremities: strength 5/5 throughout Skin: no rashes, warm and dry Psychiatric: Orientation: alert, oriented to person, oriented to place and cooperative Results & Data Vital Signs (Past 12 Hours) Vital Signs Temp Pulse Pulse Resp BP Pulse Ox O2 Del Method 04/07/24 15:36 82 04/07/24 15:31 36.7 C 70 20 110/74 96 Room Air 04/07/24 11:17 36.7 C 72 20 120/83 96 Room Air 04/07/24 10:35 Room Air 04/07/24 09:42 65 04/07/24 08:30 36.9 C 79 20 154/76 H 96 Room Air Laboratory Results 04/07/24 06:12 04/07/24 06:12
[2024-04-08 07:32] LABS: BUN Creatinine Ratio 19.1 (10-20); Calcium 9.3 mg/dl (8.6-10.3); Creatinine Clr Calc Pharmacy 11.9 ml/min; Est GFR (African American) 13.8 ml/min; Est GFR (Non-African American) 11.9 ml/min; Potassium 3.4 mmol/L (3.5-5.1)
--- NOTE | 2024-04-08 11:20 | Nephrology Progress Note ---
Date of Service April 08, 2024 Assessment & Plan (1) Acute on chronic renal failure: Plan: Slightly worse but still stage 1 nonoliguric acute on chronic renal failure. his renal function initially improved somewhat but plateaued with a creatinine of about 4 from April 05 through the ; up to 4.2 today CELESTE had been attributed to resumption of diuretics after not using them since early January (had lasix 40 mg IV x 2 on 04/01 and once on 04/02); however renal function worsened w/ holding diuretics. He has been quite hypertensive generally w/ sbp in 150s-160s unchanged on diuretics baseline creatinine 2.2-2.6. no obstruction or acute/reversible process on u/s. not a dialysis candidate should the need arise d/t his overall goals of care over 7L negative from 04/05-04/08 -daily bmp -continue to avoid/minimize nephrotoxins >> vol OL worse on 04/05 XR and aggressive diuresis initiated: Will now pivot to oral regimen > torsemide 60 mg bid17 >gave po K 20 mEq x one >continue liu >>needs daily STANDING weights- so ordered but none today; re-requested multiple times w/o effect (2) Acute on chronic heart failure with normal ejection fraction: Plan: diuretics as above >continue metoprolol, imdur, statin, clopidogrel, ASA >continue hydralazine, amlodipine current doses -cont 1.8 L FR -cont strict I/O Admission and Anticipated Discharge Date Admission Date: April 01, 2024 Subjective no c/o. liu removed midday and pt waiting to void. no sob. Review of Systems 2 Review of Systems: All systems reviewed & are unremarkable except as noted in Subjective Physical Exam 2 Constitutional: well developed (dosing in bed flat on RA, wakens fully) and well nourished Eyes: EOM intact bilaterally ENMT: Ears: no external ear abnormality Nose: no external nose abnormality Mouth: + dry oral mucous membranes Neck: no nuchal rigidity Respiratory: normal respiratory effort Auscultation: + diminished lung sounds Cardiovascular: RRR, no murmur, no edema Gastrointestinal (Abdomen): Inspection/Auscultation: normal bowel sounds P ercussion/Palpation: abdomen soft; abdomen nontender Musculoskeletal: Extremities: strength 5/5 throughout Skin: no rashes, warm and dry Psychiatric: Orientation: alert, oriented to person, oriented to place and cooperative Results & Data Vital Signs (Past 12 Hours) Vital Signs Temp Pulse Pulse Resp BP Pulse Ox O2 Del Method 04/08/24 11:11 36.8 C 72 18 106/63 97 Room Air 04/08/24 09:30 Room Air 04/08/24 07:55 36.8 C 95 Room Air 04/08/24 07:35 65 144/75 H 04/08/24 07:00 69 04/08/24 04:01 36.8 C 65 20 126/83 95 Room Air 04/08/24 01:07 36.9 C 67 20 114/63 97 Room Air Laboratory Results 04/07/24 06:12 04/08/24 05:55
[2024-04-08] MEDS: POTASSIUM CHLORIDE CRTAB 20 MEQ TABCR PO STA (11:36)
--- NOTE | 2024-04-08 14:15 | Hospitalist Progress Note ---
Date of Service April 08, 2024 Assessment & Plan (1) Acute heart failure with preserved ejection fraction: (2) SOB (shortness of breath): (3) Hypertensive urgency: (4) Flash pulmonary edema: (5) Hx of cancer of lung: (6) CAD (coronary atherosclerotic disease): (7) HTN (hypertension): (8) AAA (abdominal aortic aneurysm): Plan 84 year old male that presents to the ED from [facility] after experiencing acute onset of shortness of breath that started on morning of presentation. Recently admitted 01/02 to 01/11 for altered mental status and acute on chronic heart heart failure. Upon discharge he was noted to have hypotension and therefore his diuretic was held but appears was never restarted as an outpatient EMS was called and he was placed on 10 L nonrebreather. In ER, he was weaned off all oxygen. No oxygen use at baseline. Upon arrival patient hypertensive systolic 170s. Chest x-ray indicated cardiomegaly with emphysema and mild noted CHF. Right greater than left pleural effusions with consolidation. No leukocytosis BNP improved from January 12, 2015> 496. Creatinine 2.69; baseline 2.2-2.6. Resp PCR was + for entero/rhinovirus. Most recent ECHO 01/03/2024; EF 55 to 60% G1DDX, trace MR, mild TR. Acute on chronic diastolic CHF: Acute on chronic respiratory failure secondary to above -Initially on 10 L NRB--weaned off of supplemental oxygen --CXR: Cardiomegaly and emphysema with evidence of congestive failure. Right la rger than left pleural effusions with dependent consolidation. --BNP 496 Continue metoprolol, isosorbide Also on hydralazine No LATHA ARB given renal insufficiency Monitor I's and O's, daily weight, volume status Currently saturating well on room air Discussed with Director Of Annual Giving. IV lasix changed to po torsemide Will monitor Entero/Rhinovirus: Bio fire positive for rhinovirus Normal procalcitonin PT/OT as able Saturating well on room air CELESTE on CKD stage IV --Renal USD:The kidneys are atrophic and without hydronephrosis.The bladder is decompressed around a Albert catheter and could not be assessed. Baseline creatinine ~ 2.6 Cr 4.24 today Monitor renal function Avoid nephrotoxic agents as able Nephrology on board Per previous Provider, Patient/family not interested in dialysis HTN: Chronic Continue amlodipine, Imdur, metoprolol, hydralazine Monitor BP CAD: AAA: Chronic Status post stent x 1 Continue aspirin, Plavix, metoprolol, statin BPH: Continue finasteride; continue GERD: Continue Famotidine DVT Px: Heparin SQ CODE STATUS: DNR/DNI I spent a total of 45 minutes coordinating, documenting and providing care for this patient excluding time spent in performance of separately billed services Admission and Anticipated Discharge Date Admission Date: April 01, 2024 Subjective Patient seen and examined Patient denies any complaints on review of systems today. Physical Exam Constitutional: + well hydrated; no acute distress Eyes: PERRL, conjunctivae normal, anicteric sclerae ENMT: external ear and nose normal, oropharynx normal Respiratory: normal respiratory effort, lungs clear to auscultation Cardiovascular: S1 S2 Gastrointestinal (Abdomen): normal bowel sounds, soft, nontender, no hepatosplenomegaly Musculoskeletal: No pedal edema Neurologic: PERRL, EOMI, accommodation nl, no face palsy, no dysarthria Psychiatric: A+Ox3, euthymic affect Results & Data Results & Data Vital Signs (Past 12 Hours) Vital Signs Temp Pulse Pulse Resp BP Pulse Ox O2 Del Method 04/08/24 11:11 36.8 C 72 18 106/63 97 Room Air 04/08/24 09:30 Room Air 04/08/24 07:55 36.8 C 95 Room Air 04/08/24 07:35 65 144/75 H 04/08/24 07:00 69 04/08/24 04:01 36.8 C 65 20 126/83 95 Room Air Laboratory Results Abnormal lab results 04/08/24 Range/Units 05:55 Potassium 3.4 L (3.5-5.1) mmol/L Anion Gap 14 H (3-11) BUN 81 H (6-23) mg/dl Creatinine 4.24 H D (0.6-1.4) mg/dl Glucose 108 H (70-99(Fasting)) mg/dl
[2024-04-08] MEDS: TORSEMIDE 20 MG TAB PO SCH (17:12)
[2024-04-09 09:00] LABS: BUN Creatinine Ratio 19.6 (10-20); Calcium 9.9 mg/dl (8.6-10.3); Creatinine Clr Calc Pharmacy 11.1 ml/min; Est GFR (African American) 13.1 ml/min; Est GFR (Non-African American) 11.3 ml/min; Potassium 3.6 mmol/L (3.5-5.1)
--- NOTE | 2024-04-09 11:52 | Nephrology Progress Note ---
Date of Service April 09, 2024 Assessment & Plan (1) Acute on chronic renal failure: Plan: Slightly worse but still stage 1 nonoliguric acute on chronic renal failure. his renal function initially improved somewhat but plateaued with a creatinine of about 4 from April 05 through the ; up to 4.4 today CELESTE had been attributed to resumption of diuretics after not using them since early January (had lasix 40 mg IV x 2 on 04/01 and once on 04/02); however renal function worsened w/ holding diuretics. He has been quite hypertensive generally w/ sbp in 150s-160s unchanged until adequate diuresis achieved baseline creatinine 2.2-2.6. no obstruction or acute/reversible process on u/s. not a dialysis candidate should the need arise d/t his overall goals of care about 6.5L negative from 04/05-04/08 -daily bmp -continue to avoid/minimize nephrotoxins >> vol OL worse on 04/05 XR and aggressive diuresis initiated: Will now pivot to oral regimen > torsemide 60 mg bid17 started 04/08 but given worsening renal function will cut back >gave po K 20 mEq x one >s/p successful voiding trial >>needs daily STANDING weights- so ordered but none today; re-requested multiple times w/o effect for d/c today. had an extended discussion with pt and later w/ son Damian >> on phone w/ Damian for 15 minutes updating on pt's condition, renal prx, discussion of goals of care on topics such as dialysis (deferred for now); discussion of which auto air conditioning installer will follow this pt >> consistently per son and today per pt they wish to follow w/ me (had followed w/ me in past, had switched to [facility]; our group has followed him x 2 admissions past 3 mos; and now they wish to follow w/ me) NEPHRO D/C RECS -torsemide 60 mg daily -spironolactone 12.5 mg daily -bmp at PCP f/u which should be w/in one week -recommend hospital d/c appt w/ me w/in 1-2 weeks in [place]; recommend bmp, UACM, ACR, PTH, 25 OHD, phos, cbc to be ordered by nephrology nurse and done no mroe than 48 hrs before appt w/ me; pls send log of BP and weight below to f/u visit -continue <2 gm daily sodium diet and 1.8 L fluid limit at hospital discharge -recommend he have standing weight 3X weekly in AM x 2 weeks -recommend BP check 3X weekly x 2 wks then weekly thereafter at least by assisted living caregivers -pls cancel future appts with [facility], Dr Willson (2) Acute on chronic heart failure with normal ejection fraction: Plan: diuretics as above >continue metoprolol, imdur, statin, clopidogrel, ASA >continue hydralazine, amlodipine current doses -cont 1.8 L FR -cont strict I/O Plan highly complex medical decision making and close coordination of care. D/c medications/plan for diuretics, diet, VS monitoring reviewed w/ Dr Churchill > we are in agreement. Admission and Anticipated Discharge Date Admission Date: April 01, 2024 Physical Exam 2 Constitutional: well developed (dosing in bed flat on RA, wakens fully) and well nourished Eyes: EOM intact bilaterally ENMT: Ears: no external ear abnormality Nose: no external nose abnormality Mouth: + dry oral mucous membranes Neck: no nuchal rigidity Respiratory: normal respiratory effort Auscultation: + diminished lung sounds Cardiovascular: RRR, no murmur, no edema Gastrointestinal (Abdomen): Inspection/Auscultation: normal bowel sounds P ercussion/Palpation: abdomen soft; abdomen nontender Musculoskeletal: Extremities: strength 5/5 throughout Skin: no rashes, warm and dry Psychiatric: Orientation: alert, oriented to person, oriented to place and cooperative Results & Data Vital Signs (Past 12 Hours) Vital Signs Temp Pulse Pulse Resp BP Pulse Ox O2 Del Method 04/09/24 11:14 36.7 C 68 17 121/76 97 Room Air 04/09/24 09:55 64 04/09/24 09:37 Room Air 04/09/24 07:35 36.6 C 55 L 16 134/80 96 Room Air 04/09/24 03:23 36.8 C 69 18 119/69 94 Room Air Laboratory Results 04/07/24 06:12 04/09/24 08:14
--- NOTE | 2024-04-09 12:35 | Discharge Summary ---
Date of Service April 09, 2024 Admission HPI Per Admitting Provider Mr. Pérez is an 84 year old male that presents to the ED from [facility] after experiencing acute onset of shortness of breath that started this morning when he went to the bathroom. EMS was called and he was placed on 10 L nonrebreather. Upon arrival to the ED he was able to be weaned off all oxygen. Patient does not wear any supplemental oxygen at baseline. Upon arrival patient hypertensive systolic 170s. Chest x-ray indicated cardiomegaly with emphysema and mild noted CHF. Right greater than left pleural effusions with consolidation. Lasix IV 40 mg given in ED with 300 mL output to start. Patient was recently admitted 01/02 to 01/11 for altered mental status and acute on chronic heart heart failure. Patient was discharged to [facility] is a new permanent resident. Upon discharge he was noted to have hypotension and therefore his diuretic was held but appears was never restarted as an outpatient. No leukocytosis- BMP improved from January 12, 2015> 496. Creatinine 2.69; baseline 2.2-2.6. Incidentally tested positive for entero and rhinovirus. Complex past medical history includes chronic diastolic CHF, CAD status post stent, AAA, PVD, history of carotid endarterectomy, history of lung cancer status post resection 7 to 8 years ago, CKD stage IV, anemia of chronic disease, HTN, HLD, and others. Most recent ECHO 01/03/2024; EF 55 to 60% G1DDX, trace MR, mild TR. ECG today without signs of ischemia. Currently patient AAO x 4 able to answer all questions in a meaningful manner and does not appear in any apparent distress. Patient denies headache, dizziness, visual or auditory changes, chest pain, palpitations, abdominal pain or tenderness, dysuria, urinary changes or bowel changes, nausea, vomiting, diarrhea, recent falls or trauma. Patient will be admitted for acute on chronic exacerbation of CHF with suspected flash pulmonary edema given the acute resolution of his symptoms. Additionally patient tested positive for rhinovirus; will treat supportively with flutter valve, ISB, Mucinex PRN. Hold on any antibiotics at this time given no leukocytosis and does not appear toxic. Will check procalcitonin and get PT/OT on board. Admission Exam Per Admitting Provider Neuro: AAOx4, PERRLA, no aphagia, memory changes, CNII-XII grossly intact HEENT: head normocephalic, moist mucus membranes CV: S1/S2, (-) M/G/R, (-) edema, cap refill < 3 seconds Resp: Lungs crackles R>L. on RA. GI: Abdomen S/NT/ND, Ax4 bowel sounds, (-) CVA tenderness Musculoskeletal: 5/5 B/L UE strength, 5/5 B/L LE strength. Uses a walker at baseline Skin: (-) rashes , (-) erythema. Psych: euthymic mood Principal Diagnosis Acute on chronic diastolic heart failure Acute on chronic kidney disease Discharge Exam Constitutional + well hydrated; no acute distress Eyes PERRL, conjunctivae normal, anicteric sclerae ENMT external ear and nose normal, oropharynx normal Respiratory normal respiratory effort, lungs clear to auscultation Cardiovascular S1 S2 Gastrointestinal (Abdomen) normal bowel sounds, soft, nontender, no hepatosplenomegaly Musculoskeletal No pedal edema Neurologic PERRL, EOMI, accommodation nl, no face palsy, no dysarthria Psychiatric A+Ox3, euthymic affect Discharge Data Allergies Allergy/AdvReac Type Severity Reaction Status Date / Time Penicillins Allergy Intermediate Rash Verified 04/01/24 11:24 Consultations 04/01/24 10:21 ED Decision to Admit Stat 04/03/24 09:03 Consult Nephrology Routine Ordered Studies 04/03/24 09:02 US Renal Bladder [US renal/blad retro comp] Routine Hospital Course (1) Acute heart failure with preserved ejection fraction: (2) SOB (shortness of breath): (3) Hypertensive urgency: (4) Flash pulmonary edema: (5) Hx of cancer of lung: (6) CAD (coronary atherosclerotic disease): (7) HTN (hypertension): (8) AAA (abdominal aortic aneurysm): Plan 84 year old male that presents to the ED from [facility] after experiencing acute onset of shortness of breath that started on morning of presentation. Recently admitted 01/02 to 01/11 for altered mental status and acute on chronic heart heart failure. Upon discharge he was noted to have hypotension and therefore his diuretic was held but appears was never restarted as an outpatient EMS was called and he was placed on 10 L nonrebreather. In ER, he was weaned off all oxygen. No oxygen use at baseline. Upon arrival patient hypertensive systolic 170s. Chest x-ray indicated cardiomegaly with emphysema and mild noted CHF. Right greater than left pleural effusions with consolidation. No leukocytosis BNP improved from January 12 from 1215> 496. Creatinine 2.69; baseline 2.2- 2.6. Resp PCR was + for entero/rhinovirus. Most recent ECHO 01/03/2024; EF 55 to 60% G1DDX, trace MR, mild TR. Entero/Rhinovirus Infection: Bio fire positive for rhinovirus Normal procalcitonin Acute on chronic diastolic CHF: Acute respiratory failure secondary to above -Initially on 10 L NRB--weaned off of supplemental oxygen --CXR: Cardiomegaly and emphysema with evidence of congestive failure. Right larger than left pleural effusions with dependent consolidation. --BNP 496 CELESTE on CKD stage IV --Renal USD:The kidneys are atrophic and without hydronephrosis.The bladder is decompressed around a Albert catheter and could not be assessed. Baseline creatinine ~ 2.6 Continue metoprolol, isosorbide No LATHA ARB given renal insufficiency Diuretics were managed by [facility] Discharged on Torsemide 60mg daily and spironolactone 12.5mg daily Per son, Patient/family not interested in dialysis Patient to follow up with [facility] Dr Cowan. HTN: Chronic Continue amlodipine, Imdur, metoprolol, hydralazine CAD: AAA: Chronic Status post stent x 1 Continue aspirin, Plavix, metoprolol, statin BPH: Continue finasteride; continue GERD: Continue Famotidine Total Time Total Time Spent Total Time Spent (In Minutes): 40 Total Time Includes: Examination of the Patient, Discharge Planning, Medication Reconciliation and Communication With Other Providers Discharge Plan Discharge Items Patient Disposition: [facility] Reason For Visit: Shortness of breath Discharge Diagnosis: Acute on chronic diastolic heart failure Acute on chronic kidney disease Rhinovirus infection Activity: Resume your previous activity Non-emergency contact: Primary Care Provider and [facility] Call non-emergency contact if: you have any medication questions Follow-up/Referrals: Jenna Cowan MD, PhD [Physician] - (Needs to follow up ) Lexis Jasso [Primary Care Provider] - Diet: Heart Healthy Fluids: 1800ml (7 cups) Addtl Attending Provider Instructions: Mr Pérez You came to the hospital complaining of shortness of breath You were managed for the above listed diagnoses You are being discharged back to your [facility] home. Please ensure follow up with your Family Doctor and [facility] who will monitor your kidney function. You will need to do some blood work before follow up with [facility] Dr Cowan. Her office can help arrange that. Please adhere to 1800ml per day fluid restriction You were started on torsemide and spironolactone for fluid control It was a pleasure taking care of you Pending Studies at Discharge: No Stand-Alone Forms: My anywayanyday, Smoking Cessation Skilled Items Patient informed of condition?: Yes DNR: Yes Discharge Level of Care: Other Communicable Disease: No Discharge Prognosis: Stable Lines: None Urinary Catheter: No Medications and DC Order Prescriptions: New torsemide 20 mg tablet 60 mg PO DAILY 30 Days Qty: 90 0RF spironolactone 25 mg tablet 12.5 mg PO DAILY Qty: 30 0RF Continued [id number] Ointment 1 ea TOPICAL DIRECTED PRN (Reason: Pain) Rx Instructions: apply to legs azelastine-fluticasone 137-50 mcg/spray spray,non-aerosol 2 spray INTRANASAL DIRECTED PRN (Reason: Nasal Congestion) lutein-zeaxanthin [Ocuvite Blue Light] 25-5 mg capsule 1 cap PO DAILY guaifenesin [Mucinex] 600 mg Tablet Extended Release 12hr 600 mg PO Q12H PRN (Reason: Congestion) atorvastatin 10 mg Tablet 10 mg PO HS clopidogrel 75 mg Tablet 75 mg PO HS allopurinol 100 mg Tablet 100 mg PO UD Rx Instructions: Take fri, fri isosorbide mononitrate 60 mg Tablet Extended Release 24 Hr 60 mg PO QAM cholecalciferol (vitamin D3) [Vitamin D3] 50 mcg (2,000 unit) Tablet 50 mcg PO QAM aspirin 81 mg tablet,delayed release (DR/EC) 81 mg PO 3XWK Rx Instructions: Friday and Friday sodium bicarbonate 650 mg tablet 650 mg PO TID famotidine 20 mg tablet 20 mg PO BID hydralazine 25 mg Tablet 25 mg PO BID amlodipine 5 mg tablet 10 mg PO DAILY finasteride 5 mg Tablet 5 mg PO PM metoprolol succinate 50 mg Tablet Extended Release 24 Hr 75 mg PO PM Rx Instructions: Hold for SBP < 120 Hold for HR </equal to 60 Discharge Orders: Discharge Order- CHF (Routine); Ordered 04/09/24 Ordered By: Cristina Churchill Admission Data Admit Date/Time: 04/01/24 11:40 Attending Provider: Cristina Churchill I. Admit Provider: Calvin Stephenson Primary Care Provider: Lexis Jasso Other Providers: Calvin Stephenson; Duran [facility]; Jenna Cowan; Drew Jj; Anahi Hamitlon; Dona Chang; Shama Lawson; Timmy Owens Other Interventions: Discharge Summary Assessment (RN) Last Done: 04/09/24 12:43
== END 2024-04-09 14:52 | disposition home or self-care (01) | DRG 291 ==
LOC: ED 07:58 → EDINP 11:40 → SUATTDRO 11:40 → 2W 13:36 → 2N 04-06 05:21

== ENCOUNTER 2025-03-18 09:14 | Inpatient (IN) ==
--- NOTE | 2025-03-18 09:35 | Emergency Department Note ---
Impression & Plan Chest pain, Anemia, Non-ST elevation OK (NSTEMI), Elevated brain natriuretic peptide (BNP) level ED Provider Note HISTORY OF PRESENT ILLNESS: Patient is an 85-year-old male presenting with chest pain. Patient reports that he woke up today with substernal left-sided chest pain. He has a history of [address] He is on Plavix. He is unsure of when his last stent was, as he states it was a number of years ago. He wears 2 to 4 L at baseline for his chronic hypoxia. On arrival to the ER, he still complaining of chest pain. He reportedly had a heart rate of 135 with EMS and a blood pressure of 85/46. He was given 600 cc of fluid with improvement of his heart rate to 70 bpm and his blood pressure to 119/62. Patient is still complaining of chest pain on arrival to the ER. He describes it as a pressure-like sensation. He denies any recent cough or fevers. Denies any recent sick contact exposures. He denies any associated shortness of breath, nausea or vomiting with this chest pain. ROS: as above PHYSICAL EXAM: Constitutional: Patient appears in no acute distress. HENT: Head: Normocephalic and atraumatic. Eyes: EOMI, PERRL Mouth/Throat: Mucous membranes moist. Neck: Trachea midline. Neck supple. Cardiovascular: Tachycardic with regular rhythm. No murmurs, rubs or gallops. Intact distal pulses. Pulmonary/Chest: No respiratory distress. Breath sounds clear and equal bilaterally. No wheezes or rales. Abdominal: Abdomen soft, no tenderness, rebound or guarding. Musculoskeletal: No edema, tenderness or deformity noted. Skin: Warm and dry. No rash, erythema, pallor or cyanosis Psychiatric: Appropriate mood and affect for situation. Neurological: Alert and keenly responsive. CN II-XII grossly intact, moving all extremities equally and fully. MDM: - Vitals signs showed hypertension, tachycardia and tachypnea. - History obtained via patient. History as above. - Chronic conditions affecting care: CAD (s/p PCI); HTN; GERD; AAA; HLD; hx of GI bleed; aortic stenosis; CHF - Differential diagnoses include, but are not limited to: Acute coronary syndrome; pulmonary embolism; dissection; tension pneumothorax; esophageal rupture; pneumonia - Order placed for continuous cardiac monitoring. At this time, monitor showed rate of 96 bpm with normal sinus rhythm, per my interpretation. - External medical records reviewed. Discharge summary dated 04/09/2024 was reviewed. Patient was admitted that time for acute on chronic diastolic heart failure and acute on chronic kidney disease. - EKG image interpreted by myself showed normal sinus rhythm. Rate tachycardic at 102 bpm. QT 350. No acute ischemic changes, but noted to have some new ST depressions in the lateral leads V4 through V6. - Laboratory workup interpreted by myself showed leukopenia (WBC 4.06); anemia (Hgb 7.9); normal PT/INR; normal lactate; CKD (Cr 3.66); elevated troponin (242.9); elevated BNP (469); normal lipase; normal procalcitonin - CXR image reviewed by myself showed some pulmonary vascular congestion, per my interpretation. - Type and screen ordered. - Rectal exam was performed by myself, given patient's notable hemoglobin drop from his last lab work in the [employer] system. Patient does report he is had dark-colored stool over the last 2 to 3 days. However, rectal exam was negative. - Discussed case with remarketing rep, Dr. Ortiz, at 12:08, given concerns for patient's EKG changes and elevated troponin levels. He recommended aspirin, heparin and cardiology will see on the inpatient setting. - On reassessment, patient's chest pain has improved after 25 mcg IV fentanyl. Given 324 mg PO aspirin - Discussed results with patient. He will be admitted to medicine service with cardiology consultation for his NSTEMI. - Discussion was had with showcase maker about patient's case and need for admission - Hospitalist consulted for admission - Patient admitted to [facility] Hospitalist service for further evaluation and management. ASSESSMENT AND PLAN: Diagnosis: chest pain; NSTEMI; anemia; elevated BNP Plan: admit Past Med/Surg History Problem List (Updated 03/18/25 @ 14:32 by Jaylin Terry MD) Elevated brain natriuretic peptide (BNP) level (Acute) Non-ST elevation OK (NSTEMI) (Acute) Anemia (Acute) Chest pain (Acute) Pleural effusion (Acute) CHF (congestive heart failure) (Acute) Flash pulmonary edema Bradycardia Encephalopathy acute Acute on chronic renal failure Aortic stenosis, moderate Acute heart failure with preserved ejection fraction Acute on chronic heart failure with normal ejection fraction BPH (benign prostatic hyperplasia) Hx of gout Hx of cancer of lung Chronic diastolic heart failure Hypertensive urgency SOB (shortness of breath) Palpitations Dyspnea (Acute) Brain TIA (Acute) Confusion (Acute) Expressive aphasia (Acute) Encephalopathy (Acute) TIA (transient ischemic attack) BPH loc w urin obs/LUTS Encounter for pre-operative examination HLD (hyperlipidemia) AAA (abdominal aortic aneurysm) GI bleed Chest pain Precordial chest pain (Acute) Anemia (Acute) Acute GI bleeding (Acute) Elevated troponin (Acute) Anemia recently admitted to [facility] for this GERD (gastroesophageal reflux disease) HTN (hypertension) (Acute) CAD (coronary atherosclerotic disease) "S/P LAD stent" Medical History Flash pulmonary edema CKD (chronic kidney disease) stage 4, GFR 15-29 ml/min BPH (benign prostatic hyperplasia) Acute kidney injury superimposed on chronic kidney disease COVID-19 History of GI bleed 07/25/22, pt recently admitted to [facility] for gi bleed. pt "unsure of all the details, but know that I was anemic and had a couple pints of blood." Poor historian Hearing deficit bilat CORREA's Stomach ulcer pt "thinks it's gone now" Arthritis GERD (gastroesophageal reflux disease) Hx of cancer of lung Hx of gout Anemia recently admitted to [facility] for this TIA (transient ischemic attack) X 2 "a few years ago was last one" CAD (coronary atherosclerotic disease) "S/P LAD stent" HTN (hypertension) Surgical History History of colonoscopy History of tooth extraction History of tonsillectomy and adenoidectomy H/O heart artery stent X 4 (? DATE-"maybe 5 years ago" "LAST 2 STENTS PLACED AT [facility], OTHER [address] [facility]") S/P lobectomy of lung History of left-sided carotid endarterectomy H/O aortic aneurysm repair 2013 AT [facility] Family History Other No family history of adverse response to anesthesia No significant family history Social History Smoking Status: Former smoker Second Hand Exposure: No; Do You Dip or Chew Tobacco: No; Hx Alcohol Use: No Hx Substance Use: No Preferred Language: Yi Communication Ability: Effective Medical Officer Psychiatry Required: No Beliefs That Will Affect Care: None Current Living Situation: Personal Care Facility Current Living Situation Comment: [facility] How many Children do You have: 1 Feels Safe at Home: Yes Assistive Devices: Walker Allergies Allergies Allergy/AdvReac Type Severity Reaction Status Date / Time Penicillins Allergy Intermediate Rash Verified 04/01/24 11:24 Home Meds Home Medications Medication Instructions Recorded Confirmed allopurinol 100 mg tablet 100 mg PO UD 08/24/21 03/18/25 atorvastatin 10 mg tablet 10 mg PO 3XWK 08/24/21 03/18/25 cholecalciferol (vitamin D3) 50 50 mcg PO QAM 08/24/21 03/18/25 mcg (2,000 unit) tablet (Vitamin D3) clopidogrel 75 mg tablet 75 mg PO HS 08/24/21 03/18/25 isosorbide mononitrate 60 mg 60 mg PO QAM 08/24/21 03/18/25 tablet,extended release 24 hr aspirin 81 mg tablet,delayed 81 mg PO 3XWK 01/02/24 03/18/25 release amlodipine 5 mg tablet 10 mg PO DAILY 04/01/24 03/18/25 metoprolol succinate 50 mg 75 mg PO HS 04/01/24 03/18/25 tablet,extended release 24 hr acetaminophen 325 mg tablet 650 mg PO Q4H PRN Pain/Fever 03/18/25 03/18/25 (Tylenol) albuterol sulfate 90 mcg/actuation 2 puff inhalation Q6H PRN 03/18/25 03/18/25 aerosol inhaler Cough/Wheezing bisacodyl 10 mg rectal suppository 10 mg IN DIRECTED PRN 03/18/25 03/18/25 Constipation calcium carbonate (Antacid 200 mg PO DIRECTED PRN 03/18/25 03/18/25 (calcium carbonate)) Indigestion famotidine 10 mg tablet 10 mg PO HS 03/18/25 03/18/25 fluticasone fur. 100 mcg-umeclid 1 inh inhalation DAILY 03/18/25 03/18/25 62.5 mcg-vilant 25 mcg inhalat.powder (Trelegy Ellipta) hydralazine 50 mg tablet 50 mg PO BID 03/18/25 03/18/25 lidocaine HCl 4 %-menthol 1 % 1 applic topical TID PRN Pain 03/18/25 03/18/25 topical cream (Icy Hot Max (lidocaine HCl-menthol)) lutein 25 mg-zeaxanthin 5 mg 1 cap PO 3XWK 03/18/25 03/18/25 capsule (Ocuvite Blue Light) nitroglycerin 0.4 mg sublingual 0.4 mg sublingual DIRECTED PRN 03/18/25 03/18/25 tablet Chest Pain ondansetron HCl 4 mg tablet 4 mg PO DIRECTED PRN Nausea 03/18/25 03/18/25 nkyvwnnhpziij-FD-jfqekbsutkq 5 10 ml PO Q4H PRN Cough and Cold 03/18/25 03/18/25 mg-10 mg-100 mg/5 mL oral liquid (Tussin CF Cough-Cold) psyllium husk 3.4 gram/5.4 gram 1 tbsp PO DIRECTED PRN 03/18/25 03/18/25 oral powder (Metamucil) Constipation sennosides 8.6 mg-docusate sodium 1 tab-cap PO HS 03/18/25 03/18/25 50 mg tablet (Senna Plus) tamsulosin 0.4 mg capsule 0.4 mg PO DAILY 03/18/25 03/18/25 torsemide 20 mg tablet 20 mg PO 3XWK 03/18/25 03/18/25 Previous Rx's Medication Instructions Recorded spironolactone 25 mg tablet 12.5 mg (1/2 x 25 mg) PO DAILY #30 04/09/24 tabs Results & Data (ED) Vital Signs Vital Signs - 24 hr 03/18/25 09:21 03/18/25 09:30 03/18/25 09:32 Temperature 36.8 C Temperature Source Oral Pulse Rate 103 H Pulse Rate from SpO2 Sensor Respiratory Rate 25 H Respiratory Effort / Characteristics Spontaneous Short of Breath Respiratory Depth Normal Blood Pressure 168/107 H 174/99 H Blood Pressure Mean 127 133 Blood Pressure Position Lying Pulse Oximetry 97 96 Oxygen Delivery Method Nasal Cannula Nasal Cannula Oxygen Flow Rate 2 2 Sepsis Recent Fever Within 48 Hours No Sepsis New/Unexplained Change in Mental Status N/A Sepsis Action Taken by Nursing No Action Required 03/18/25 09:33 03/18/25 09:33 03/18/25 09:57 Temperature Temperature Source Pulse Rate 102 H 103 H Pulse Rate from SpO2 Sensor 102 H 102 H Respiratory Rate 25 H 19 Respiratory Effort / Characteristics Respiratory Depth Blood Pressure Blood Pressure Mean Blood Pressure Position Pulse Oximetry 95 95 98 Oxygen Delivery Method Nasal Cannula Nasal Cannula Nasal Cannula Oxygen Flow Rate 2 2 2 Sepsis Recent Fever Within 48 Hours Sepsis New/Unexplained Change in Mental Status Sepsis Action Taken by Nursing 03/18/25 10:00 03/18/25 10:26 03/18/25 10:30 Temperature Temperature Source Pulse Rate 98 H Pulse Rate from SpO2 Sensor Respiratory Rate Respiratory Effort / Characteristics Respiratory Depth Blood Pressure 165/107 H 169/106 H Blood Pressure Mean 139 135 Blood Pressure Position Pulse Oximetry Oxygen Delivery Method Oxygen Flow Rate Sepsis Recent Fever Within 48 Hours Sepsis New/Unexplained Change in Mental Status Sepsis Action Taken by Nursing 03/18/25 10:30 03/18/25 11:27 03/18/25 12:00 Temperature Temperature Source Pulse Rate 96 H 89 82 Pulse Rate from SpO2 Sensor 95 H 87 81 Respiratory Rate 18 17 14 Respiratory Effort / Characteristics Respiratory Depth Blood Pressure 179/100 H 126/66 Blood Pressure Mean 126 86 Blood Pressure Position Pulse Oximetry 98 100 100 Oxygen Delivery Method Nasal Cannula Nasal Cannula Nasal Cannula Oxygen Flow Rate 2 2 2 Sepsis Recent Fever Within 48 Hours Sepsis New/Unexplained Change in Mental Status Sepsis Action Taken by Nursing 03/18/25 13:03 03/18/25 14:09 03/18/25 14:25 Temperature Temperature Source Pulse Rate 87 83 83 Pulse Rate from SpO2 Sensor 87 83 Respiratory Rate 19 11 L Respiratory Effort / Characteristics Respiratory Depth Blood Pressure 176/107 H 189/107 H Blood Pressure Mean 130 134 Blood Pressure Position Pulse Oximetry 100 99 Oxygen Delivery Method Nasal Cannula Nasal Cannula Oxygen Flow Rate 2 2 Sepsis Recent Fever Within 48 Hours Sepsis New/Unexplained Change in Mental Status Sepsis Action Taken by Nursing Laboratory Data 03/18/25 09:20 03/18/25 09:20 Lab Results 03/18/25 03/18/25 03/18/25 Range/Units 09:20 09:53 10:36 WBC 4.06 L (4.8-10.8) K/ul RBC 2.62 L (4.70-6.10) M/uL Hgb 7.9 L (14.0-18.0) g/dl Hct 25.4 L (42.0-52.0) % MCV 96.9 (80.0-100.0) fL MCH 30.2 (25.0-34.0) pg MCHC 31.1 L (32.0-36.0) g/dL RDW Std Deviation 54.2 H (36.4-46.3) fL RDW Coeff of Serene 15.6 H (11.5-14.5) % Plt Count 189 (130-400) K/uL MPV 9.5 (9.4-12.4) fL Immature Gran % (Auto) 0.7 % Neut % (Auto) 61.1 % Lymph % (Auto) 15.3 % [place] % (Auto) 10.6 % Eos % (Auto) 11.3 % Baso % (Auto) 1.0 % Neut # (Auto) 2.48 (1.40-6.50) K/uL Lymph # (Auto) 0.62 L (1.20-3.40) K/uL [place] # (Auto) 0.43 (0.11-0.59) K/uL Eos # (Auto) 0.46 (0.00-0.50) K/uL Baso # (Auto) 0.04 (0.00-0.20) K/uL Immature Gran # (Auto) 0.03 (0.01-0.20) K/uL Polychromasia 1+ PT 10.6 (9.0-12.0) Seconds INR 1.0 (0.9-1.1) Sodium 139 (136-145) mmol/L Potassium 3.7 (3.5-5.1) mmol/L Chloride 107 (98-107) mmol/L Carbon Dioxide 23 (21-32) mmol/L Anion Gap 9 (3-11) BUN 35 H (6-23) mg/dl Creatinine 3.66 H (0.6-1.4) mg/dl Est Cr Clr Drug Dosing 13.5 ml/min eGFR 15.45 BUN/Creatinine Ratio 9.6 L (10-20) Glucose 102 H (70-99(Fasting)) mg/dl Lactate 1.3 (0.4-2.0) mmol/L Calcium 9.2 (8.6-10.3) mg/dl Total Bilirubin 0.5 (0.2-1.0) mg/dl AST 11 L (13-39) U/L ALT 7 (7-52) U/L Alkaline Phosphatase 62 (34-104) U/L Troponin I High Sens 242.9 H* (0-20) pg/ml B-Natriuretic Peptide 469 H (0-100) pg/ml Total Protein 7.2 (6.0-8.3) gm/dl Albumin 3.6 (3.4-5.0) gm/dl Globulin 3.6 (2.5-4.0) gm/dl Albumin/Globulin Ratio 1.0 (0.9-2) Lipase 24 (11-82) U/L Procalcitonin 0.12 (0-0.5) ng/ml Blood Type O Positive Antibody Screen NEGATIVE 03/18/25 Range/Units 11:20 WBC (4.8-10.8) K/ul RBC (4.70-6.10) M/uL Hgb (14.0-18.0) g/dl Hct (42.0-52.0) % MCV (80.0-100.0) fL MCH (25.0-34.0) pg MCHC (32.0-36.0) g/dL RDW Std Deviation (36.4-46.3) fL RDW Coeff of Serene (11.5-14.5) % Plt Count (130-400) K/uL MPV (9.4-12.4) fL Immature Gran % (Auto) % Neut % (Auto) % Lymph % (Auto) % [place] % (Auto) % Eos % (Auto) % Baso % (Auto) % Neut # (Auto) (1.40-6.50) K/uL Lymph # (Auto) (1.20-3.40) K/uL [place] # (Auto) (0.11-0.59) K/uL Eos # (Auto) (0.00-0.50) K/uL Baso # (Auto) (0.00-0.20) K/uL Immature Gran # (Auto) (0.01-0.20) K/uL Polychromasia PT (9.0-12.0) Seconds INR (0.9-1.1) Sodium (136-145) mmol/L Potassium (3.5-5.1) mmol/L Chloride (98-107) mmol/L Carbon Dioxide (21-32) mmol/L Anion Gap (3-11) BUN (6-23) mg/dl Creatinine (0.6-1.4) mg/dl Est Cr Clr Drug Dosing ml/min eGFR BUN/Creatinine Ratio (10-20) Glucose (70-99(Fasting)) mg/dl Lactate (0.4-2.0) mmol/L Calcium (8.6-10.3) mg/dl Total Bilirubin (0.2-1.0) mg/dl AST (13-39) U/L ALT (7-52) U/L Alkaline Phosphatase (34-104) U/L Troponin I High Sens 396.4 H* D (0-20) pg/ml B-Natriuretic Peptide (0-100) pg/ml Total Protein (6.0-8.3) gm/dl Albumin (3.4-5.0) gm/dl Globulin (2.5-4.0) gm/dl Albumin/Globulin Ratio (0.9-2) Lipase (11-82) U/L Procalcitonin (0-0.5) ng/ml Blood Type Antibody Screen Administered Medications Discontinued Medications Aspirin (Aspirin Chew 324 Mg) 324 mg PO NOW STA Stop: 03/18/25 12:50 Last Admin: 03/18/25 13:31 Dose: 324 mg Documented By: SCARLETT Fentanyl Citrate (Fentanyl Citrate Pf 100 Mcg/2 Ml Vial) 25 mcg IV NOW ONE Stop: 03/18/25 10:30 Last Admin: 03/18/25 11:51 Dose: Not Given Documented By: SCARLETT Imaging Data Radiologist's Impression: Chest X-Ray 03/18/25 09:28 XR chest 1V portable CLINICAL HISTORY: Chest pain, nonspecific COMPARISON STUDY: 04/05/2024 FINDINGS: Stable hiatal hernia. Stable moderate cardiomegaly with mild pulmonary vascular congestion. Stable mild opacity at the left base with blunting of the left costophrenic angle, likely small left pleural effusion and associated consolidation. Stable diffuse pulmonary interstitial opacities. No pneumothorax. Stable old healed left upper to mid posterior rib fracture. IMPRESSION: Stable exam. There are findings of CHF with likely small left pleural effusion. ACT 112: Negative or not required by law. Electronically signed by: Prashant Aguirre M.D. 03/18/2025 9:55 AM Discharge Plan Visit Data Chief Complaint: Cardiac Assessment Stated Complaint: CHEST PRESSURE ED Provider: Jaylin Terry Discharge Problem: Chest pain, Anemia, Non-ST elevation OK (NSTEMI), Elevated brain natriuretic peptide (BNP) level Forms Stand Alone Forms: [facility] Prescriptions Prescriptions: No Action atorvastatin 10 mg Tablet 10 mg PO 3XWK Rx Instructions: Friday, Friday and Friday at bedtime clopidogrel 75 mg Tablet 75 mg PO HS allopurinol 100 mg Tablet 100 mg PO UD Rx Instructions: Take fri, fri isosorbide mononitrate 60 mg Tablet Extended Release 24 Hr 60 mg PO QAM Rx Instructions: - Hold if standing systolic is less than 110 cholecalciferol (vitamin D3) [Vitamin D3] 50 mcg (2,000 unit) Tablet 50 mcg PO QAM aspirin 81 mg tablet,delayed release (DR/EC) 81 mg PO 3XWK Rx Instructions: Friday and Friday acetaminophen [Tylenol] 325 mg Tablet 650 mg PO Q4H PRN (Reason: Pain/Fever) torsemide 20 mg Tablet 20 mg PO 3XWK Rx Instructions: Friday, Friday and Friday - Hold if standing systolic is less than or equal to 130 famotidine 10 mg Tablet 10 mg PO HS ondansetron HCl [Zofran] 4 mg Tablet 4 mg PO DIRECTED PRN (Reason: Nausea) Rx Instructions: No frequency given on med list from assisted facility sennosides-docusate sodium [Senna Plus] 8.6-50 mg Tablet 1 tab-cap PO HS tamsulosin 0.4 mg Capsule 0.4 mg PO DAILY bisacodyl 10 mg Suppository 10 mg IN DIRECTED PRN (Reason: Constipation) Rx Instructions: No frequency given on med list from assisted facility Tussin CF Cough-Cold 5-10-100 mg/5 mL Liquid 10 ml PO Q4H PRN (Reason: Cough and Cold) calcium carbonate [Antacid (calcium carbonate)] 200 mg calcium (500 mg) Tablet,Chewable 200 mg PO DIRECTED PRN (Reason: Indigestion) Rx Instructions: No frequency given on med list from assisted facility nitroglycerin 0.4 mg Tablet, Sublingual 0.4 mg sublingual DIRECTED PRN (Reason: Chest Pain) Rx Instructions: Give every 5 mins x 2, if not relieve after 3 doses call 911 hydralazine 50 mg Tablet 50 mg PO BID Rx Instructions: Hold if standing systolic is less than 130 albuterol sulfate 90 mcg/actuation Hfa Aerosol Inhaler 2 puff INHALATION Q6H PRN (Reason: Cough/Wheezing) lutein-zeaxanthin [Ocuvite Blue Light] 25-5 mg Capsule 1 cap PO 3XWK Rx Instructions: Friday, Friday and Friday Icy Hot Max (lido HCl-menthol) 4-1 % Cream 1 applic TOPICAL TID PRN (Reason: Pain) Metamucil 3.4 gram/5.4 gram Powder 1 tbsp PO DIRECTED PRN (Reason: Constipation) Rx Instructions: mix into at least 8 oz of water or juice before administering. No frequency given on med list from assisted facility Trelegy Ellipta 100-62.5-25 mcg Blister With Device 1 inh INHALATION DAILY amlodipine 5 mg tablet 10 mg PO DAILY Rx Instructions: - Hold if standing systolic is less than 110 metoprolol succinate 50 mg Tablet Extended Release 24 Hr 75 mg PO HS Rx Instructions: Hold for SBP < 120 Hold for HR </equal to 60 spironolactone 25 mg tablet 12.5 mg PO DAILY Qty: 30 0RF Rx Instructions: - Hold if standing systolic is less than or equal to 130 Referrals Referrals: Lexis Jasso [Primary Care Provider] -
--- NOTE | 2025-03-18 09:56 | XRay Report ---
XR chest 1V portable CLINICAL HISTORY: Chest pain, nonspecific COMPARISON STUDY: 04/05/2024 FINDINGS: Stable hiatal hernia. Stable moderate cardiomegaly with mild pulmonary vascular congestion. Stable mild opacity at the left base with blunting of the left costophrenic angle, likely small left pleural effusion and associated consolidation. Stable diffuse pulmonary interstitial opacities. No p neumothorax. Stable old healed left upper to mid posterior rib fracture. IMPRESSION: Stable exam. There are findings of CHF with likely small left pleural effusion. ACT 112: Negative or not required by law. Electronically signed by: Prashant Aguirre M.D. 03/18/2025 9:55 AM
[2025-03-18 10:08] LABS: Basophils # (auto) 0.04 K/uL (0.00-0.20); Eosinophils # (auto) 0.46 K/uL (0.00-0.50); Eosinophils % (auto) 11.3 %; Hematocrit (blood only) 25.4 % (42.0-52.0); Hemoglobin 7.9 g/dl (14.0-18.0); Immature Granulocytes # (auto) 0.03 K/uL (0.01-0.20); Immature Granulocytes % (auto) 0.7 %; Lymphocytes # (auto) 0.62 K/uL (1.20-3.40); Lymphocytes % (auto) 15.3 %; Mean Corpuscular Hemoglobin 30.2 pg (25.0-34.0); Mean Corpuscular Hgb Conc 31.1 g/dL (32.0-36.0); Mean Corpuscular Volume 96.9 fL (80.0-100.0); Mean Platelet Volume 9.5 fL (9.4-12.4); Monocytes # (auto) 0.43 K/uL (0.11-0.59); Monocytes % (auto) 10.6 %; Neutrophils # (auto) 2.48 K/uL (1.40-6.50); Neutrophils % (auto) 61.1 %; Platelet Count 189 K/uL (130-400); RDW Coefficient of Variation 15.6 % (11.5-14.5); RDW Standard Deviation 54.2 fL (36.4-46.3); Red Blood Count 2.62 M/uL (4.70-6.10); White Blood Count 4.06 K/ul (4.8-10.8)
[2025-03-18 10:09] LABS: Albumin Level 3.6 gm/dl (3.4-5.0); BUN Creatinine Ratio 9.6 (10-20); Bilirubin,Total 0.5 mg/dl (0.2-1.0); Calcium 9.2 mg/dl (8.6-10.3); Creatinine Clr Calc Pharmacy 13.5 ml/min; Globulin 3.6 gm/dl (2.5-4.0); Potassium 3.7 mmol/L (3.5-5.1); Total Protein 7.2 gm/dl (6.0-8.3)
[2025-03-18 10:21] LABS: Troponin I High Sensitivity 242.9 pg/ml (0-20)
[2025-03-18 10:27] LABS: Prothrombin Time 10.6 Seconds (9.0-12.0)
[2025-03-18 10:30] LABS: Polychromasia 1+
[2025-03-18] MEDS: fentaNYL citrate PF 100 MCG/2 ML VIAL IV ONE (11:51)
--- NOTE | 2025-03-18 13:17 | History & Physical Report ---
Date of Service March 18, 2025 Assessment & Plan (1) Chest pain: Plan: #NSTEMI #CAD #S/P Stent #Hypertensive urgency Patient is 85-year-old male with PMH chronic HFpEF, CAD s/p stent, PVD, history AAA repair, history of carotid endarterectomy, HTN, HLD, history of TIA, history of lung cancer s/p surgery, chronic anemia, CKD IV, chronic hypoxic respiratory failure on 2L oxygen presented to ER with c/o CP upon awakening in the morning for past 3 days. Today increased CP and did not self resolve. In ER afebrile, P: 103, R: 25, BP 168/107, 97% on 2 L via nasal cannula WBC: 4.0, H/H: 7.9/25 (baseline 8-9 with recent noted downtrend Hgb: 6.4 on 02/17/25, Hgb: 7.0 on 03/10/25). PLT: 189. Lactate: 1.3, procalcitonin: 0.1. BUN: 35, Cr: 3.6. BNP: 469 Troponin: 242, 396 EKG: sinus tachycardia, rate 102, ST depression anterior, lateral leads CXR: Stable moderate cardiomegaly with mild pulmonary vascular congestion. Stable mild opacity at the left base with blunting of the left costophrenic angle, likely small left pleural effusion and associated consolidation. Stable diffuse pulmonary interstitial opacities. No pneumothorax. In ER given fentanyl 25mcg IV, aspirin 324mg po Patient reports CP free after the fentanyl. 01/03/2024 echo: EF: 55-60%, grade 1 diastolic dysfunction, moderate calcification aortic leaflets, mild-moderate aortic stenosis, trace mitral regurgitation, mild tricuspid regurgitation In ER Hemoccult reported negative ER physician reports spoke to sightseeing guide who had recommended aspirin and starting IV heparin. ER physician reports did not start IV heparin with concern for current anemia Repeat EKG in am, and prn Trend troponin Echo Cardiology consult On isosorbide. Cardiology recommended hold and added nitro paste Continue metoprolol succinate, Plavix Takes aspirin 81mg on MWF, atorvastatin 10mg on MWF Continue home amlodipine, hydralazine, metoprolol succinate Lipid panel in am #Acute on Chronic HFpEF 01/03/2024 echo: EF: 55-60%, grade 1 diastolic dysfunction, moderate calcification aortic leaflets, mild-moderate aortic stenosis, trace mitral regurgitation, mild tricuspid regurgitation BNP: 469 Daily weight. Monitor I's &O's Lasix 40mg IV today. Hold home torsemide 20mg MWF and reassess volume status tomorrow to determine further diuretic dosing. Hold spironolactone #CKD IV BUN: 35, Cr: 3.6. (Baseline Cr: 3.8, GFR: 15) Monitor renal functions, avoid nephrotoxic agents when possible Is to have appt with nephrology, Dr Cowan 03/23/25 #Chronic Anemia H/H: 7.9 (baseline 8-9 with recent noted downtrend Hgb: 6.4 on 02/17/25, Hgb: 7.0 on 03/10/25) (03/03/25 iron: 32, TIBC: 187, transferrin: 17, ferritin: 54) Reports dark stools In ER Hemoccult negative #TIA History TIA Continue aspirin, atorvastatin, Plavix #Chronic hypoxic respiratory failure On 2L oxygen via NC Pt reports uses intermittently Continue 2L oxygen #Hx of cancer of lung: S/p lobectomy 2011 #AAA (abdominal aortic aneurysm): History of AAA repair 2016 #GERD (gastroesophageal reflux disease): Continue famotidine #Hx of gout: Continue allopurinol #BPH (benign prostatic hyperplasia): Continue dutasteride DVT Prophylaxis SCDs for now Admit telemetry DNR as per discussion with pt Follows with Dr Jasso for routine care Pt was seen and care coordinated with Dr Langston. See addendum I spent a total of 78 minutes reviewing notes, outpatient records, labs, medication, coordinating, documenting and providing care for this patient excluding time spent in the performance of separately billed services and excluding time spent by another provider/QHP. History of Present Illness Chief Complaint: CP Primary Care Provider: Lexis Jasso Patient is 85-year-old male with PMH chronic HFpEF, CAD s/p stent, PVD, history AAA repair, history of carotid endarterectomy, HTN, HLD, history of TIA, history of lung cancer s/p surgery, chronic anemia, CKD IV, chronic hypoxic respiratory failure on 2L oxygen presented to ER with c/o CP. Patient reports the past 3 mornings has been waking up with anterior chest pain. States lasts several hours and then will resolve. Has not been using SL nitro. He states is to be using 2L O2 via NC however "the machine annoys me" and hasn't been using and has not been using at night. Patient states he thinks he can use oxygen as needed. Reports having chronic SOB with exertion, and doesn't think its worse than usual. Today patient reported patient awoke this morning with 7/10 left sided chest pain described as pressure and EMS was called. Denies diaphoresis, nausea, vomiting, dizziness, syncope. He feels like his heart racing in the morning. He is unsure if any increased BLE edema. Patient states hasn't taken his morning meds and has not taken any nitroglycerin. States sometimes will have a nonproductive cough but feels this is not new. He states last week he started noticing very dark almost black color stools. Denies hematochezia. EMS had reported initial HR: 135 down to 70s, with BP: 85/46 and 119/62. Was given 600ml NSS by EMS. Denies fever/chills, diaphoresis, N/V/D/C, CORREA, dizziness, syncope, neck pain, sore throat, rhinorrhea, abdominal pain, paresthesias, weakness, extremity weakness, rashes, dysuria, hematuria. Allergies Allergy/AdvReac Type Severity Reaction Status Date / Time Penicillins Allergy Intermediate Rash Verified 04/01/24 11:24 Home Medications Medication Instructions Recorded Confirmed Type allopurinol 100 mg tablet 100 mg PO UD 08/24/21 03/18/25 History atorvastatin 10 mg tablet 10 mg PO 3XWK 08/24/21 03/18/25 History cholecalciferol (vitamin D3) 50 50 mcg PO QAM 08/24/21 03/18/25 History mcg (2,000 unit) tablet (Vitamin D3) clopidogrel 75 mg tablet 75 mg PO HS 08/24/21 03/18/25 History isosorbide mononitrate 60 mg 60 mg PO QAM 08/24/21 03/18/25 History tablet,extended release 24 hr aspirin 81 mg tablet,delayed 81 mg PO 3XWK 01/02/24 03/18/25 History release amlodipine 5 mg tablet 5 mg PO DAILY 04/01/24 03/18/25 History metoprolol succinate 50 mg 75 mg PO HS 04/01/24 03/18/25 History tablet,extended release 24 hr spironolactone 25 mg tablet 12.5 mg (1/2 x 25 mg) PO DAILY #30 04/09/24 03/18/25 Rx tabs acetaminophen 325 mg tablet 650 mg PO Q4H PRN Pain/Fever 03/18/25 03/18/25 History (Tylenol) albuterol sulfate 90 mcg/actuation 2 puff inhalation Q6H PRN 03/18/25 03/18/25 History aerosol inhaler Cough/Wheezing bisacodyl 10 mg rectal suppository 10 mg WV DIRECTED PRN 03/18/25 03/18/25 History Constipation calcium carbonate (Antacid 200 mg PO DIRECTED PRN 03/18/25 03/18/25 History (calcium carbonate)) Indigestion famotidine 10 mg tablet 10 mg PO HS 03/18/25 03/18/25 History fluticasone fur. 100 mcg-umeclid 1 inh inhalation DAILY 03/18/25 03/18/25 History 62.5 mcg-vilant 25 mcg inhalat.powder (Trelegy Ellipta) hydralazine 50 mg tablet 50 mg PO BID 03/18/25 03/18/25 History lidocaine HCl 4 %-menthol 1 % 1 applic topical TID PRN Pain 03/18/25 03/18/25 History topical cream (Icy Hot Max (lidocaine HCl-menthol)) lutein 25 mg-zeaxanthin 5 mg 1 cap PO 3XWK 03/18/25 03/18/25 History capsule (Ocuvite Blue Light) nitroglycerin 0.4 mg sublingual 0.4 mg sublingual DIRECTED PRN 03/18/25 03/18/25 History tablet Chest Pain ondansetron HCl 4 mg tablet 4 mg PO Q8H PRN Nausea 03/18/25 03/18/25 History kkcgxzhlgojls-LG-tlbnglnvckr 5 10 ml PO Q4H PRN Cough and Cold 03/18/25 03/18/25 History mg-10 mg-100 mg/5 mL oral liquid (Tussin CF Cough-Cold) psyllium husk 3.4 gram/5.4 gram 1 tbsp PO DAILY PRN Constipation 03/18/25 03/18/25 History oral powder (Metamucil) sennosides 8.6 mg-docusate sodium 1 tab-cap PO HS 03/18/25 03/18/25 History 50 mg tablet (Senna Plus) tamsulosin 0.4 mg capsule 0.4 mg PO DAILY 03/18/25 03/18/25 History torsemide 20 mg tablet 20 mg PO 3XWK 03/18/25 03/18/25 History Past Med/Surg History Problem List Elevated brain natriuretic peptide (BNP) level (Acute) Non-ST elevation RI (NSTEMI) (Acute) Anemia (Acute) Chest pain (Acute) Pleural effusion (Acute) CHF (congestive heart failure) (Acute) Flash pulmonary edema Bradycardia Encephalopathy acute Acute on chronic renal failure Aortic stenosis, moderate Acute heart failure with preserved ejection fraction Acute on chronic heart failure with normal ejection fraction BPH (benign prostatic hyperplasia) Hx of gout Hx of cancer of lung Chronic diastolic heart failure Hypertensive urgency SOB (shortness of breath) Palpitations Dyspnea (Acute) Brain TIA (Acute) Confusion (Acute) Expressive aphasia (Acute) Encephalopathy (Acute) TIA (transient ischemic attack) BPH loc w urin obs/LUTS Encounter for pre-operative examination HLD (hyperlipidemia) AAA (abdominal aortic aneurysm) GI bleed Chest pain Precordial chest pain (Acute) Anemia (Acute) Acute GI bleeding (Acute) Elevated troponin (Acute) Anemia recently admitted to [facility] for this GERD (gastroesophageal reflux disease) HTN (hypertension) (Acute) CAD (coronary atherosclerotic disease) "S/P LAD stent" Medical History CKD (chronic kidney disease) stage 4, GFR 15-29 ml/min Acute kidney injury superimposed on chronic kidney disease COVID-19 History of GI bleed 07/25/22, pt recently admitted to [facility] for gi bleed. pt "unsure of all the details, but know that I was anemic and had a couple pints of blood." Poor historian Hearing deficit bilat CORREA's Stomach ulcer pt "thinks it's gone now" Arthritis TIA (transient ischemic attack) X 2 "a few years ago was last one" Surgical History History of colonoscopy History of tooth extraction History of tonsillectomy and adenoidectomy H/O heart artery stent X 4 (? DATE-"maybe 5 years ago" "LAST [address] [facility], OTHER 2 AT [facility]") S/P lobectomy of lung History of left-sided carotid endarterectomy H/O aortic aneurysm repair [address] 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 Beliefs That Will Affect Care: None Current Living Situation: Personal Care Facility Current Living Situation Comment: [facility] How many Children do You have: 1 Feels Safe at Home: Yes Assistive Devices: Walker Review of Systems Review of Systems: All systems reviewed & are unremarkable except as noted in HPI & below Physical Exam Physical Exam: General: no acute distress, sitting up in bed on 2L via NC, WDWN Head: normocephalic, atraumatic Eyes: conjunctiva non-injected, anicteric ENT: normal inspection external ears, nose, mucous membranes moist Neck: supple, trachea midline Lungs: no respiratory distress on current 2L via NC with O2 sat 99%, +rales at bases CV: RRR, 1-2+pretibial edema Abd: normal BS, soft, non-tender Ext: no cyanosis, no calf tenderness Neuro: A&O x 3, no focal deficits noted, normal affect Skin: warm, dry Results & Data Results & Data Vital Signs (Past 12 Hours) Vital Signs Temp Pulse Resp BP Pulse Ox O2 Del Method O2 Flow Rate 03/18/25 10:30 96 H 18 98 Nasal Cannula 2 03/18/25 10:30 169/106 H 03/18/25 10:26 98 H 03/18/25 10:00 165/107 H 03/18/25 09:57 103 H 19 98 Nasal Cannula 2 03/18/25 09:33 102 H 25 H 95 Nasal Cannula 2 03/18/25 09:33 95 Nasal Cannula 2 03/18/25 09:32 96 Nasal Cannula 2 03/18/25 09:30 174/99 H 03/18/25 09:21 36.8 C 103 H 25 H 168/107 H 97 Nasal Cannula 2 Laboratory Results Short CBC 03/18/25 Range/Units 09:20 WBC 4.06 L (4.8-10.8) K/ul Hgb 7.9 L (14.0-18.0) g/dl Hct 25.4 L (42.0-52.0) % Plt Count 189 (130-400) K/uL BMP 03/18/25 09:20 Sodium 139 Potassium 3.7 Chloride 107 Carbon Dioxide 23 BUN 35 H Creatinine 3.66 H Glucose 102 H Calcium 9.2 Liver Function 03/18/25 Range/Units 09:20 Total Bilirubin 0.5 (0.2-1.0) mg/dl AST 11 L (13-39) U/L ALT 7 (7-52) U/L Alkaline Phosphatase 62 (34-104) U/L Albumin 3.6 (3.4-5.0) gm/dl Diagnostic Findings Chest X-Ray 03/18/25 09:28 XR chest 1V portable CLINICAL HISTORY: Chest pain, nonspecific COMPARISON STUDY: 04/05/2024 FINDINGS: Stable hiatal hernia. Stable moderate cardiomegaly with mild pulmonary vascular congestion. Stable mild opacity at the left base with blunting of the left costophrenic angle, likely small left pleural effusion and associated consolidation. Stable diffuse pulmonary interstitial opacities. No pneumothorax. Stable old healed left upper to mid posterior rib fracture. IMPRESSION: Stable exam. There are findings of CHF with likely small left pleural effusion. ACT 112: Negative or not required by law. Electronically signed by: Prashant Aguirre M.D. 03/18/2025 9:55 AM Supervising Physician Co-Signing Physician Notes 85-year-old male with PMH of Chronic hypoxic respiratory failure on 2 L oxygen at baseline, chronic HFpEF, CAD status post stent, PVD, AAA repair, carotid endarterectomy, HTN, HLD, TIA, lung cancer status post surgery, chronic anemia, CKD stage IV was brought in from assisted living with complaint of chest pain that has been waking up from sleep since last 3 days. Generally he would sit up and the chest pain would go away in about couple of hours but today it did not resolve and hence he presented to the ED. Patient reports he does not use oxygen because he thinks he does not need it. Patient also reports having shortness of breath with activity since about 2 to 3 weeks. Patient denies fever/cough/sore throat, reports eating okay/moving bowels okay/no pain and burning while passing urine/no nausea/no vomiting. Labs and imagings reviewed. Hemoglobin of 7.9, baseline around 8-9. Creatinine of 3.66, around his baseline. LFT WNL. Troponin at 242, up trended to 396. Lipase and procalcitonin WNL. CXR with mild pulmonary vascular congestion and small left pleural effusion consistent with CHF finding. EKG with ST depression in anterolateral leads. NSTEMI: Patient is on DAPT at home, received loading dose of aspirin and fentanyl IV at ED with relief of pain. Continue with Nitropatch, EKG as needed for chest pain, morphine as needed. Continue other home medications as able. Interventional cardiology aware per ED, consult general cardiology. Will get echo. Possible mild acute on chronic heart failure with preserved ejection fraction: CXR with mild pulmonary vascular congestion. Likely in the setting of NSTEMI. Patient currently requiring his baseline oxygen, continue to monitor. since blood pressure on the high side, can utilize gentle IV diuresis with 40 Mg IV Lasix today. Last echo from January 2024 with EF of 55 to 60%. Will get an updated echo this admission. History of chronic anemia: Likely in the setting of multiple comorbidities & CKD stage IV. Admitting hemoglobin of 7.9, will monitor, FOBT done in ED was neg, baseline hemoglobin seems around 8-9. On exam: GENERAL: Alert and oriented x3. NAD, on 2L NC O2, appears chronically ill/weak. HEENT: No pallor, no icterus. Pupils equal, round and reactive to light. Oral mucosa moist. NECK: No JVD, no neck masses. HEART: S1 and S2 heard. Regular rate and rhythm. No murmur, no gallop. RESPIRATORY SYSTEM: Normal AP diameter. No accessory muscle use. No wheezing, b/l mid and basal crackles. ABDOMEN: Soft, bowel sounds present, nontender, some distention. CENTRAL NERVOUS SYSTEM: No facial droop. Speech is clear. Obeys simple commands. Moves extremities. EXTREMITIES: 1/2+ ble edema, no erythema seen. I have seen and examined the patient and have discussed the case with the provider above. I agree with the assessment and plan as stated. Time spent independently: 25 min
[2025-03-18] MEDS: ASPIRIN CHEW 324 MG PO STA (13:31)
--- NOTE | 2025-03-18 14:27 | Electrocardiogram Report ---
Test Reason : Blood Pressure : */* mmHG Vent. Rate : 102 BPM Atrial Rate : 102 BPM P-R Int : 206 ms QRS Dur : 82 ms QT Int : 350 ms P-R-T Axes : 46 44 36 degrees QTcB Int : 456 ms Sinus tachycardia with Fusion complexes Nonspecific ST and T wave abnormality Abnormal ECG When compared with ECG of 04-Apr-2024 08:25, Fusion complexes are now Present Premature ventricular complexes are no longer Present ST now depressed in Anterolateral leads Nonspecific T wave abnormality now evident in Inferior leads T wave inversion now evident in Lateral leads Confirmed by Booker Garcia [id number] on 03/18/2025 2:27:05 PM Referred By: Confirmed By: Booker Garcia
[2025-03-18 15:08] LABS: Influenza A virus by PCR Negative (Neg); Influenza B virus by PCR Negative (Neg); RSV by PCR Negative (Neg); SARS CoV2 RNA(COVID-19) Ceph NEGATIVE (Negative)
[2025-03-18] MEDS: NITROGLYCERIN 2% OINTMENT 30GM TUBE EXT SCH (15:17)
[2025-03-18] MEDS: FUROSEMIDE 40 MG/4 ML VIAL IV ONE (15:17)
--- NOTE | 2025-03-18 15:42 | Cardiology Consultation ---
Date of Consultation March 18, 2025 Assessment & Plan (1) Non-ST elevation TN (NSTEMI): (2) Hypertensive urgency: Patient with apparent type II TN in the setting of demand ischemia with hypertensive urgency. He has a history of labile hypertension. When he was hospitalized under similar circumstances in 2023, EKG revealed no ischemic changes. Recommend holding isosorbide mononitrate and starting 1 inch of nitroglycerin paste. If the blood pressure remains above goal, I think it is reasonable to give the small dose of IV hydralazine that had been ordered by the admitting team. The patient lives at an assisted nursing home and his medications are administered regularly, so I do not think this is an issue with medication nonadherence. Would recommend continuing his home medications of aspirin, clopidogrel, metoprolol, oral hydralazine, amlodipine, and atorvastatin.Patient received 60 mg of IV furosemide.Would hold his spironolactone given the degree of renal insufficiency. Patient likely has anemia of chronic disease. Typical hemoglobin was in the range of 9-10 in 2023, 7.9 today. Will hold off on systemic anticoagulation with heparin. Echocardiogram reveals no regional wall motion abnormalities which is reassuring. Given the degree of chronic kidney disease, favor medication management, as contrast administration necessary for cardiac catheterization would likely result in worsening renal failure and need for dialysis. Patient agreeable to this approach. History of Present Illness History of Present Illness Mr Pérez is an 85 year old male seen in cardiology consultation per the request of Dr Langston for the evaluation of chest discomfort with noted abnormalities on EKG. The patient has previously followed with cardiology in [place]. Patient stated he started having waxing and waning chest discomfort yesterday. He was able to sleep, when he woke up at just after 7:30 AM he had a bandlike chest discomfort. An EKG was performed at 8:38 AM by the paramedics and was reviewed and revealed sinus rhythm with right bundle branch block with diffuse inferolateral ST segment depression consistent with ischemia. An EKG was repeated when he arrived to the emergency department at 9:21 AM. The right bundle branch block had resolved. The ST segment depression was still present albeit less prominent. At the time of his previous EKG performed at this institution in Mar, [address] segment depression was observed at that time. His blood pressure was elevated on arrival to the emergency department this morning with initial reading of 168/107 and his trended up, most recent m easurement at 1409 was 189/107. During my assessment in the emergency department the patient was laying comfortably and he states his chest pain is completely resolved. Past Medical History: 1. Longstanding chronic ischemic heart disease status post remote coronary interventions LAD and right coronary artery. Last diagnostic cardiac catheterization 2017 demonstrated patent LAD stent with 50% narrowing, chronic right coronary occlusion. 2. Chronic angina pectoris 3. Atherosclerotic vascular disease status post abdominal aortic aneurysm repair, 2013 open surgical, with chronic abdominal aneurysm dilatation proximal to the repair site. 4. Atherosclerotic carotid disease status post left carotid enterectomy, past TIAs on dual antiplatelet therapy with aspirin and clopidogrel 5. Left lower lobe lung resection for malignancy 2013 with chronic obstructive lung disease 6. Recurrent anemia, paraesophageal hiatal hernia 7. CKD stage IV 8. Hypertension 9. Hyperlipidemia 10. Calcific aortic valve disease with moderate aortic stenosis Allergies Allergy/AdvReac Type Severity Reaction Status Date / Time Penicillins Allergy Intermediate Rash Verified 04/01/24 11:24 Home Medications Medication Instructions Recorded Confirmed Type allopurinol 100 mg tablet 100 mg PO UD 08/24/21 03/18/25 History atorvastatin 10 mg tablet 10 mg PO 3XWK 08/24/21 03/18/25 History cholecalciferol (vitamin D3) 50 50 mcg PO QAM 08/24/21 03/18/25 History mcg (2,000 unit) tablet (Vitamin D3) clopidogrel 75 mg tablet 75 mg PO HS 08/24/21 03/18/25 History isosorbide mononitrate 60 mg 60 mg PO QAM 08/24/21 03/18/25 History tablet,extended release 24 hr aspirin 81 mg tablet,delayed 81 mg PO 3XWK 01/02/24 03/18/25 History release amlodipine 5 mg tablet 5 mg PO DAILY 04/01/24 03/18/25 History metoprolol succinate 50 mg 75 mg PO HS 04/01/24 03/18/25 History tablet,extended release 24 hr spironolactone 25 mg tablet 12.5 mg (1/2 x 25 mg) PO DAILY #30 04/09/24 03/18/25 Rx tabs acetaminophen 325 mg tablet 650 mg PO Q4H PRN Pain/Fever 03/18/25 03/18/25 History (Tylenol) albuterol sulfate 90 mcg/actuation 2 puff inhalation Q6H PRN 03/18/25 03/18/25 History aerosol inhaler Cough/Wheezing bisacodyl 10 mg rectal suppository 10 mg OH DIRECTED PRN 03/18/25 03/18/25 History Constipation calcium carbonate (Antacid 200 mg PO DIRECTED PRN 03/18/25 03/18/25 History (calcium carbonate)) Indigestion famotidine 10 mg tablet 10 mg PO HS 03/18/25 03/18/25 History fluticasone fur. 100 mcg-umeclid 1 inh inhalation DAILY 03/18/25 03/18/25 History 62.5 mcg-vilant 25 mcg inhalat.powder (Trelegy Ellipta) hydralazine 50 mg tablet 50 mg PO BID 03/18/25 03/18/25 History lidocaine HCl 4 %-menthol 1 % 1 applic topical TID PRN Pain 03/18/25 03/18/25 History topical cream (Icy Hot Max (lidocaine HCl-menthol)) lutein 25 mg-zeaxanthin 5 mg 1 cap PO 3XWK 03/18/25 03/18/25 History capsule (Ocuvite Blue Light) nitroglycerin 0.4 mg sublingual 0.4 mg sublingual DIRECTED PRN 03/18/25 03/18/25 History tablet Chest Pain ondansetron HCl 4 mg tablet 4 mg PO Q8H PRN Nausea 03/18/25 03/18/25 History kekonzydfvxdq-PH-tbckgpomuyu 5 10 ml PO Q4H PRN Cough and Cold 03/18/25 03/18/25 History mg-10 mg-100 mg/5 mL oral liquid (Tussin CF Cough-Cold) psyllium husk 3.4 gram/5.4 gram 1 tbsp PO DAILY PRN Constipation 03/18/25 03/18/25 History oral powder (Metamucil) sennosides 8.6 mg-docusate sodium 1 tab-cap PO HS 03/18/25 03/18/25 History 50 mg tablet (Senna Plus) tamsulosin 0.4 mg capsule 0.4 mg PO DAILY 03/18/25 03/18/25 History torsemide 20 mg tablet 20 mg PO 3XWK 03/18/25 03/18/25 History Patient History Medical History CKD (chronic kidney disease) stage 4, GFR 15-29 ml/min Acute kidney injury superimposed on chronic kidney disease COVID-19 History of GI bleed 07/25/22, pt recently admitted to [facility] for gi bleed. pt "unsure of all the details, but know that I was anemic and had a couple pints of blood." Poor historian Hearing deficit bilat CORREA's Stomach ulcer pt "thinks it's gone now" Arthritis TIA (transient ischemic attack) X 2 "a few years ago was last one" Surgical History History of colonoscopy History of tooth extraction History of tonsillectomy and adenoidectomy H/O heart artery stent X 4 (? DATE-"maybe 5 years ago" "LAST 2 STENTS PLACED AT [facility], OTHER 2 AT [facility]") S/P lobectomy of lung History of left-sided carotid endarterectomy H/O aortic aneurysm repair 2013 AT [facility] Family History Other No family history of adverse response to anesthesia No significant family history Social History Smoking Status: Former smoker Second Hand Exposure: No; Do You Dip or Chew Tobacco: No; Hx Alcohol Use: No Hx Substance Use: No Preferred Language: Guatemalan Communication Ability: Effective Kitchen Steward Required: No Beliefs That Will Affect Care: None Current Living Situation: Personal Care Facility Current Living Situation Comment: [facility] How many Children do You have: 1 Feels Safe at Home: Yes Assistive Devices: Walker Review of Systems Review of Systems: All systems reviewed & are unremarkable except as noted in Subjective Physical Exam Physical Exam: General: no acute distress and stated age Eyes: conjunctiva are pink and non-injected, sclera clear Neck: normal jugular venous pulse, no hepatojugular reflux Chest: normal shape and normal respiratory effort Lungs: clear to auscultation and percussion Cardiac Exam: - regular heart sounds, 1/6 systolic murmur Abdomen: abdomen soft, non-tender, no abnormal masses and no hepatosplenomegaly Musculoskeletal: no gait disturbance, no weakness Extremities: no edema and no cyanosis Neuro:awake, conversant, follows commands, no focal motor deficits Psych: appropriate affect and insight. Results & Data Vital Signs (Past 12 Hours) Vital Signs Temp Pulse Resp BP Pulse Ox O2 Del Method O2 Flow Rate 03/18/25 14:25 83 03/18/25 14:09 83 11 L 189/107 H 99 Nasal Cannula 2 03/18/25 13:03 87 19 176/107 H 100 Nasal Cannula 2 03/18/25 12:00 82 14 126/66 100 Nasal Cannula 2 03/18/25 11:27 89 17 179/100 H 100 Nasal Cannula 2 03/18/25 10:30 96 H 18 98 Nasal Cannula 2 03/18/25 10:30 169/106 H 03/18/25 10:26 98 H 03/18/25 10:00 165/107 H 03/18/25 09:57 103 H 19 98 Nasal Cannula 2 03/18/25 09:33 102 H 25 H 95 Nasal Cannula 2 03/18/25 09:33 95 Nasal Cannula 2 03/18/25 09:32 96 Nasal Cannula 2 03/18/25 09:30 174/99 H 03/18/25 09:21 36.8 C 103 H 25 H 168/107 H 97 Nasal Cannula 2 Laboratory Results Cardiac Enzymes 03/18/25 03/18/25 Range/Units 09:20 11:20 AST 11 L (13-39) U/L Troponin I High Sens 242.9 H* 396.4 H* D (0-20) pg/ml B-Natriuretic Peptide 469 H (0-100) pg/ml Coagulation 03/18/25 Range/Units 09:20 PT 10.6 (9.0-12.0) Seconds B-Natriuretic Peptide 469 H (0-100) pg/ml CBC 03/18/25 Range/Units 09:20 WBC 4.06 L (4.8-10.8) K/ul RBC 2.62 L (4.70-6.10) M/uL Hgb 7.9 L (14.0-18.0) g/dl Hct 25.4 L (42.0-52.0) % Plt Count 189 (130-400) K/uL Neut # (Auto) 2.48 (1.40-6.50) K/uL Lymph # (Auto) 0.62 L (1.20-3.40) K/uL [place] # (Auto) 0.43 (0.11-0.59) K/uL Eos # (Auto) 0.46 (0.00-0.50) K/uL Baso # (Auto) 0.04 (0.00-0.20) K/uL Comprehensive Metabolic Panel 03/18/25 Range/Units 09:20 Sodium 139 (136-145) mmol/L Potassium 3.7 (3.5-5.1) mmol/L Chloride 107 (98-107) mmol/L Carbon Dioxide 23 (21-32) mmol/L BUN 35 H (6-23) mg/dl Creatinine 3.66 H (0.6-1.4) mg/dl Glucose 102 H (70-99(Fasting)) mg/dl Calcium 9.2 (8.6-10.3) mg/dl AST 11 L (13-39) U/L ALT 7 (7-52) U/L Alkaline Phosphatase 62 (34-104) U/L Total Protein 7.2 (6.0-8.3) gm/dl Albumin 3.6 (3.4-5.0) gm/dl Intake and Output 03/18/25 03/18/25 03/18/25 06:59 14:59 22:59 Intake Total 600 / 600 Balance 600 / 600 Intake: IV 600 / 600 Left Upper Upper Arm 600 / 600 Other: Weight 78.6 kg Weight Measurement Method Built [facility] Patient Weight 03/19/25 06:59 Weight 78.6 kg Diagnostic Findings EKG findings as outlined in the HPI Summary of transthoracic echocardiogram performed 03/18/2025: Moderate concentric left ventricular hypertrophy LVEF in the range of 55 to 60% Moderate aortic valve stenosis. Pulmonary systolic pressure mildly elevated 41 mmHg. Summary of chest x-ray performed today, perhaps a small pleural effusion on the left. Relatively unchanged compared to Mar, 2024
[2025-03-18] MEDS: hydrALAZINE TAB 50 MG TAB PO ONE (16:26)
[2025-03-18] MEDS: FUROSEMIDE INJ 20 MG/2 ML VIAL IV ONE (16:27)
[2025-03-18] MEDS: ISOSORBIDE MONO EXTENDED REL 60 MG TABCR PO ONE (16:27)
[2025-03-18] MEDS ORDERED: ACETAMINOPHEN 325 MG TAB PO PRN (20:44)
[2025-03-18] MEDS ORDERED: POLYETHYLENE (MIRALAX) 17 GM PACK PO PRN (20:44)
[2025-03-18] MEDS ORDERED: ONDANSETRON INJ 2 MG/ML 2 ML VIAL IV PRN (20:44)
[2025-03-18] MEDS ORDERED: hydrALAZINE TAB 50 MG TAB PO SCH (21:00)
[2025-03-18 21:47] LABS: Hematocrit (blood only) 24.7 % (42.0-52.0); Hemoglobin 7.8 g/dl (14.0-18.0)
[2025-03-18] MEDS: amLODIPine BESYLATE 5 MG TAB PO SCH (22:02)
[2025-03-18] MEDS: ATORVASTATIN 10 MG TAB PO SCH (22:03)
[2025-03-18] MEDS: hydrALAZINE HCL 20 MG/ML VIAL IV ONE (22:03)
[2025-03-18] MEDS: FAMOTIDINE 10 MG TABLET PO SCH (22:04)
[2025-03-18] MEDS: METOPROLOL SUCC 25MG EXT REL TAB PO SCH (22:04)
[2025-03-18] MEDS: CLOPIDOGREL BISULFATE 75 MG TAB PO SCH (22:04)
[2025-03-18] MEDS: DOCUSATE SODIUM/SENNA 50/8.6MG TAB PO SCH (22:12)
[2025-03-18] MEDS: hydrALAZINE TAB 50 MG TAB PO SCH (22:36)
[2025-03-19 07:28] LABS: Hematocrit (blood only) 22.4 % (42.0-52.0); Hemoglobin 7.2 g/dl (14.0-18.0); Mean Corpuscular Hgb Conc 32.1 g/dL (32.0-36.0); Mean Corpuscular Volume 96.6 fL (80.0-100.0); Mean Platelet Volume 9.5 fL (9.4-12.4); Platelet Count 212 K/uL (130-400); RDW Coefficient of Variation 15.3 % (11.5-14.5); RDW Standard Deviation 53.8 fL (36.4-46.3); Red Blood Count 2.32 M/uL (4.70-6.10); White Blood Count 5.61 K/ul (4.8-10.8)
[2025-03-19 07:33] LABS: BUN Creatinine Ratio 9.9 (10-20); Calcium 9.1 mg/dl (8.6-10.3); Chol HDL Ratio 2.7 (0-5); Creatinine Clr Calc Pharmacy 13.6 ml/min; Magnesium 2.1 mg/dl (1.7-2.4); Phosphorus 3.5 mg/dl (2.5-4.9); Potassium 3.6 mmol/L (3.5-5.1)
[2025-03-19] MEDS ORDERED: NON-FORMULARY MEDICATION (Fluticasone-Umeclidin-Vilanter [Trelegy Ellipta] 100-62.5-25 mcg INH SCH (09:00)
--- NOTE | 2025-03-19 09:03 | Electrocardiogram Report ---
Test Reason : Blood Pressure : */* mmHG Vent. Rate : 65 BPM Atrial Rate : 65 BPM P-R Int : 220 ms QRS Dur : 90 ms QT Int : 456 ms P-R-T Axes : 39 40 40 degrees QTcB Int : 474 ms Sinus rhythm with 1st degree A-V block Left ventricular hypertrophy with repolarization abnormality Abnormal ECG When compared with ECG of 18-Mar-2025 09:21, Fusion complexes are no longer Present Vent. rate has decreased by [address] no longer depressed in Anterior leads T wave inversion no longer evident in Lateral leads Confirmed by Booker Garcia [id number] on 03/19/2025 9:03:00 AM Referred By: REFERRED SELF Confirmed By: Booker Garcia
[2025-03-19] MEDS: amLODIPine BESYLATE 5 MG TAB PO SCH (09:06)
[2025-03-19] MEDS: ISOSORBIDE MONO EXTENDED REL 30 MG TABCR PO SCH (09:06)
[2025-03-19] MEDS: CHOLECALCIFEROL 25 MCG (1000 UNITS) TAB PO SCH (09:06)
[2025-03-19] MEDS: ASPIRIN 81 MG ECTAB PO SCH (09:07)
[2025-03-19] MEDS: UMECLIDINIUM/VILANTEROL 62.5/25MCG 7 PUFFS/INHALER INH SCH (09:08)
[2025-03-19] MEDS: FLUTICASONE FUROATE 100MCG 14 PUFFS/INHALER INH SCH (09:08)
[2025-03-19] MEDS: TAMSULOSIN HCL 0.4 MG CAP PO SCH (09:09)
--- NOTE | 2025-03-19 13:12 | Hospitalist Progress Note ---
Date of Service March 19, 2025 Assessment & Plan (1) Non-ST elevation [place] (NSTEMI): (2) Anemia, chronic renal failure: (3) CKD (chronic kidney disease) stage 4, GFR 15-29 ml/min: (4) Hx of cancer of lung: (5) Hypertension, uncontrolled: (6) CAD (coronary atherosclerotic disease): (7) Chronic heart failure with preserved ejection fraction: (8) Chronic hypoxic respiratory failure, on home oxygen therapy: Plan Patient 85-year-old gentleman with known coronary disease presents with chest pain. Laboratory findings consistent with non-STEMI. Troponins trending downward Continue medical management for non-STEMI Increase Norvasc for better blood pressure control Increase Imdur for better blood pressure control and angina management, discontinue Nitropaste Case management for disposition planning Discontinue Albert catheter Increase activity Anemia reflection of iron deficiency and chronic renal failure. Essentially at baseline. Will start iron replacement therapy today, consider Epogen tomorrow Case management for return to previous place of living Resume daily diuretic Phone conversation to update family Admission and Anticipated Discharge Date Admission Date: March 18, 2025 Subjective Patient denies any chest pain or shortness of breath. Physical Exam Physical Exam: Constitutional: Alert HEENT: Mucous membranes moist. Lungs: Decreased breath sounds, prolonged expiratory phase, no wheezes, few crackles at bases CV: S1-S2, regular Abdomen: Soft, nontender, nondistended Extremities: No significant edema Neuro: No focal deficits, generalized weakness Psych: Cooperative, normal mood Results & Data Results & Data Vital Signs (Past 12 Hours) Vital Signs Temp Pulse Pulse Resp BP Pulse Ox O2 Del Method 03/19/25 11:07 36.8 C 69 18 135/81 98 Nasal Cannula 03/19/25 09:43 Nasal Cannula 03/19/25 07:58 36.4 C L 70 18 165/84 H 97 Room Air 03/19/25 07:18 65 03/19/25 04:00 36.7 C 70 16 150/81 H 97 Nasal Cannula O2 Flow Rate 03/19/25 11:07 3 03/19/25 09:43 3 03/19/25 07:58 03/19/25 07:18 03/19/25 04:00 3 Diagnostic Findings Reviewed imaging, laboratory and diagnostic studies. Pertinent findings as below. Hemoglobin 7.2 Creatinine 3.65, baseline Troponins reviewed and trending downward Lipid profile reviewed Echocardiogram report reviewed, ejection fraction within normal range Reviewed outside EMR. Recent iron studies consistent with iron deficiency anemia
[2025-03-19] MEDS: TORSEMIDE 20 MG TAB PO SCH (13:55)
[2025-03-19] MEDS: IRON SUCROSE 200 MG in SODIUM CHLORIDE 0.9% 100 ML IV SCH (14:25)
[2025-03-20 06:57] LABS: Hemoglobin 7.4 g/dl (14.0-18.0); Mean Corpuscular Hgb Conc 32.2 g/dL (32.0-36.0); Mean Corpuscular Volume 96.2 fL (80.0-100.0); Mean Platelet Volume 9.6 fL (9.4-12.4); Platelet Count 209 K/uL (130-400); RDW Coefficient of Variation 15.2 % (11.5-14.5); RDW Standard Deviation 53.5 fL (36.4-46.3); Red Blood Count 2.39 M/uL (4.70-6.10); White Blood Count 5.69 K/ul (4.8-10.8)
[2025-03-20 07:24] LABS: BUN Creatinine Ratio 12.5 (10-20); Calcium 9.4 mg/dl (8.6-10.3); Creatinine Clr Calc Pharmacy 12.4 ml/min; Potassium 3.7 mmol/L (3.5-5.1)
[2025-03-20] MEDS: METOPROLOL SUCC 25MG EXT REL TAB PO ONE (08:04)
[2025-03-20] MEDS: SPIRONOLACTONE 12.5 MG TAB PO SCH (08:07)
[2025-03-20] MEDS: EPOETIN ALFA 4,000 UNIT/ML VIAL IV ONE (09:21)
--- NOTE | 2025-03-20 14:09 | Hospitalist Progress Note ---
Date of Service March 20, 2025 Assessment & Plan (1) Non-ST elevation [place] (NSTEMI): (2) Anemia, chronic renal failure: (3) CKD (chronic kidney disease) stage 4, GFR 15-29 ml/min: (4) Hx of cancer of lung: (5) Hypertension, uncontrolled: (6) CAD (coronary atherosclerotic disease): (7) Chronic heart failure with preserved ejection fraction: (8) Chronic hypoxic respiratory failure, on home oxygen therapy: Plan Patient with a type II demand ischemia myocardial infarction in the setting of anemia due to chronic renal failure and uncontrolled hypertension. Patient's blood pressure has become somewhat better controlled with medication adjustments noted yesterday. Given additional Toprol XL 25 mg this morning then increase evening dose to 100 mg to continue nightly Additional IV iron today Epogen today Communication with case management, planning to return to [facility] tomorrow Awaiting PT/OT evals. Patient doing well on room air. Maintain outpatient nephrology appointment on Friday as scheduled Updated patient's son aware of probable discharge tomorrow Admission and Anticipated Discharge Date Admission Date: March 18, 2025 Subjective Patient denies any chest pain. No shortness of breath. Physical Exam Physical Exam: Constitutional: Alert HEENT: Mucous membranes moist. Lungs: Clear to auscultation, decreased, no wheezes rales or rhonchi CV: S1-S2, regular Abdomen: Soft, nontender, nondistended Extremities: No significant edema Neuro: No focal deficits, generalized weakness Psych: Cooperative, normal mood Results & Data Results & Data Vital Signs (Past 12 Hours) Vital Signs Temp Pulse Pulse Resp BP Pulse Ox O2 Del Method 03/20/25 10:44 36.6 C 73 18 119/75 97 Room Air 03/20/25 08:00 Room Air 03/20/25 07:39 36.9 C 70 18 150/83 H 97 Room Air 03/20/25 07:18 60 03/20/25 06:46 95 Room Air 03/20/25 04:00 36.7 C 66 18 148/76 H 93 Room Air Diagnostic Findings Reviewed imaging, laboratory and diagnostic studies. Pertinent findings as below. Hemoglobin 0.4, stable Creatinine 4.0, within baseline range Electrolytes within normal range TSH 3.3
[2025-03-20] MEDS: METOPROLOL SUCC 50MG EXT REL TAB PO SCH (20:04)
[2025-03-21 06:52] LABS: Hematocrit (blood only) 22.9 % (42.0-52.0); Hemoglobin 7.3 g/dl (14.0-18.0); Mean Corpuscular Hemoglobin 30.4 pg (25.0-34.0); Mean Corpuscular Hgb Conc 31.9 g/dL (32.0-36.0); Mean Corpuscular Volume 95.4 fL (80.0-100.0); Platelet Count 200 K/uL (130-400); RDW Coefficient of Variation 15.5 % (11.5-14.5); RDW Standard Deviation 53.7 fL (36.4-46.3); White Blood Count 6.44 K/ul (4.8-10.8)
[2025-03-21 07:04] LABS: BUN Creatinine Ratio 12.6 (10-20); Calcium 8.9 mg/dl (8.6-10.3); Creatinine Clr Calc Pharmacy 11.8 ml/min; Potassium 3.7 mmol/L (3.5-5.1)
[2025-03-21] MEDS: allopurinoL 100 MG TAB PO SCH (08:24)
[2025-03-21] MEDS ORDERED: SODIUM CHLORIDE 0.9% 100 ML IV PRN (09:29)
--- NOTE | 2025-03-21 11:50 | Hospitalist Progress Note ---
Date of Service March 21, 2025 Assessment & Plan (1) Chest pain: Plan: #NSTEMI #CAD #S/P Stent #Hypertensive urgency Patient is 85-year-old male with PMH chronic HFpEF, CAD s/p stent, PVD, history AAA repair, history of carotid endarterectomy, HTN, HLD, history of TIA, history of lung cancer s/p surgery, chronic anemia, CKD IV, chronic hypoxic respiratory failure on 2L oxygen presented to ER with c/o CP upon awakening in the morning for past 3 days. Today increased CP and did not self resolve. In ER given fentanyl 25mcg IV, aspirin 324mg po Troponin: 242, 396 and went up to 12 or 3 EKG: sinus tachycardia, rate 102, ST depression anterior, lateral leads. subsequent EKG did not show any ST elevation 01/03/2024 echo: EF: 55-60%, grade 1 diastolic dysfunction, moderate calcification aortic leaflets, mild-moderate aortic stenosis, trace mitral regurgitation, mild tricuspid regurgitation In ER Hemoccult reported negative ER physician reports spoke to truck shop supervisor who had recommended aspirin and starting IV heparin. ER physician reports did not start IV heparin with concern for current anemiaRepeat echo was unremarkable Cardiology consult- appreciate cardiology input and recommendation Repeat echo was unremarkable On isosorbide. Cardiology recommended hold and added nitro paste Continue metoprolol succinate, Plavix Takes aspirin 81mg on MWF, atorvastatin 10mg on MWF Continue home amlodipine, hydralazine, metoprolol succinate Lipid panel - remained unremarkable Denies any more cardiac symptoms and no arrhythmias and remains hemodynamically stable #Acute on Chronic HFpEF 01/03/2024 echo: EF: 55-60%, grade 1 diastolic dysfunction, moderate calcification aortic leaflets, mild-moderate aortic stenosis, trace mitral regurgitation, mild tricuspid regurgitation BNP: 469 Daily weight. Monitor I's &O's Received Lasix 40mg IV on the day of admission Spironolactone is on hold now from today 03/21/2025 He has been getting torsemide orally No symptoms of fluid overload #CKD IV BUN: 35, Cr: 3.6. (Baseline Cr: 3.8, GFR: 15) Monitor renal functions, avoid nephrotoxic agents when possible Is to have appt with nephrology, Dr Cowan 03/23/25 Renal function is slightly worse with BUN of 53 and creatinine 4.19- spironolactone is on hold now Will monitor PRP #Chronic Anemia H/H: 7.9/ (baseline 8-9 with recent noted downtrend Hgb: 6.4 on 02/17/25, Hgb: 7.0 on 03/10/25) (03/03/25 iron: 32, TIBC: 187, transferrin: 17, ferritin: 54) Reports dark stools In ER Hemoccult negative His hemoglobin remains on the lower side and is 7.3 today No evidence of active GI bleed Received intravenous Venofer 200 mg IV Given cardiac symptoms and non-ST elevation SD will give 1 unit of blood transfusion Discussed with the patient and he is agreeable to it #TIA History TIA Continue aspirin, atorvastatin, Plavix #Chronic hypoxic respiratory failure On 2L oxygen via [place] Pt reports uses intermittently Continue 2L oxygen #Hx of cancer of lung: S/p lobectomy 2011 #AAA (abdominal aortic aneurysm): History of AAA repair 2016 #GERD (gastroesophageal reflux disease): Continue famotidine #Hx of gout: Continue allopurinol #BPH (benign prostatic hyperplasia): Continue dutasteride DVT Prophylaxis SCDs for now Admit telemetry DNR as per discussion with pt Follows with Dr Jasso for routine care Admission and Anticipated Discharge Date Admission Date: March 18, 2025 Subjective 03/21/2025 The patient was seen and examined in telemetry unit He has been feeling much better denies any cardiac symptoms Awaiting PT evaluation prior to discharge Review of Systems Review of Systems: All systems reviewed and are unremarkable except as noted below Physical Exam Physical Exam: Lying in bed without any acute distress Constitutional: + ill appearing and average body habitus Eyes: PERRL, conjunctivae normal, anicteric sclerae ENMT: external ear and nose normal, oropharynx normal Neck: trachea midline, no thyromegaly Respiratory: no respiratory distress Auscultation: lungs clear to auscultation bilaterally Cardiovascular: Rate/Rhythm: regular rate and regular rhythm; not tachycardic Heart Sounds: normal S1 and normal S2; no murmur Extremities: no edema Gastrointestinal (Abdomen): Inspection/Auscultation: normal bowel sounds; abdomen not distended Percussion/Palpation: abdomen soft; abdomen nontender Musculoskeletal: No acute arthritis involving any joint Neurologic: normal touch/pain/proprioception and moves all extremities; no focal motor deficits Lymphatic: no cervical or axillary lymphadenopathy Results & Data Results & Data Vital Signs (Past 12 Hours) Vital Signs Temp Pulse Pulse Resp BP Pulse Ox O2 Del Method 03/21/25 11:20 36.7 C 68 19 147/84 H 95 Room Air 03/21/25 08:12 64 03/21/25 08:00 Room Air 03/21/25 07:44 36.8 C 70 18 158/77 H 98 Room Air 03/21/25 03:00 36.6 C 64 17 127/63 96 Room Air 03/21/25 00:00 36.8 C 69 18 136/70 93 Room Air Laboratory Results Short CBC 03/21/25 Range/Units 05:59 WBC 6.44 (4.8-10.8) K/ul Hgb 7.3 L (14.0-18.0) g/dl Hct 22.9 L (42.0-52.0) % Plt Count 200 (130-400) K/uL BMP 03/21/25 05:59 Sodium 138 Potassium 3.7 Chloride 106 Carbon Dioxide 23 BUN 53 H Creatinine 4.19 H Glucose 89 Calcium 8.9 Medications Administered Current Inpatient Medications Acetaminophen (Acetaminophen 325 Mg Tab) 650 mg PO Q4H PRN PRN Reason: Pain or Fever Stop: 04/17/25 20:43 Allopurinol (Allopurinol 100 Mg Tab) 100 mg PO Mo@0900 ALEX Stop: 04/20/25 08:59 Last Admin: 03/21/25 08:24 Dose: 100 mg Amlodipine Besylate (Amlodipine Besylate 5 Mg Tab) 10 mg PO DAILY ALEX Stop: 04/18/25 08:59 Last Admin: 03/21/25 08:24 Dose: 10 mg Aspirin (Aspirin 81 Mg Ectab) 81 mg PO DAILY ALEX Stop: 04/18/25 08:59 Last Admin: 03/21/25 08:24 Dose: 81 mg Atorvastatin Calcium (Atorvastatin 10 Mg Tab) 10 mg PO MoWeFr@2100 ALEX Stop: 04/17/25 20:59 Last Admin: 03/18/25 22:03 Dose: 10 mg Clopidogrel Bisulfate (Clopidogrel Bisulfate 75 Mg Tab) 75 mg PO HS ALEX Stop: 04/17/25 20:59 Last Admin: 03/20/25 20:04 Dose: 75 mg Famotidine (Famotidine 10 Mg Tablet) 10 mg PO HS [facility] Stop: 04/17/25 20:59 Last Admin: 03/20/25 20:04 Dose: 10 mg Fluticasone Furoate (Fluticasone Furoate 100mcg 14 Puffs/Inhaler) 1 puffs INH DAILY [facility]LEX Stop: 04/18/25 08:59 Last Admin: 03/21/25 08:25 Dose: 1 puffs Hydralazine HCl (Hydralazine Tab 50 Mg Tab) 50 mg PO BID [facility]LEX Stop: 04/17/25 22:59 Last Admin: 03/21/25 08:24 Dose: 50 mg Sodium Chloride (Nss) 100 mls @ 15 mls/hr IV .Q6H40M PRN PRN Reason: For Transfusion Duration Stop: 03/21/25 17:29 Isosorbide Mononitrate (Isosorbide [place] Extended Rel 30 Mg Tabcr) 90 mg PO QAM [facility] Stop: 04/18/25 08:59 Last Admin: 03/21/25 08:24 Dose: 90 mg Metoprolol Succinate (Metoprolol Succ 50mg Ext Rel Tab) 100 mg PO HS [facility] Stop: 04/19/25 20:59 Last Admin: 03/20/25 20:04 Dose: 100 mg Ondansetron HCl (Ondansetron Inj 2 Mg/Ml 2 Ml Vial) 4 mg IV Q6H PRN PRN Reason: Nausea Stop: 04/17/25 20:43 Polyethylene Glycol (Polyethylene (Miralax) 17 Gm Pack) 17 gm PO DAILY PRN PRN Reason: Constipation Stop: 04/17/25 20:43 Senna/Docusate Sodium (Docusate Sodium/Senna 50/8.6mg Tab) 1 tab PO HS [facility] Stop: 04/17/25 20:59 Last Admin: 03/20/25 20:03 Dose: 1 tab Spironolactone (Spironolactone 12.5 Mg Tab) 12.5 mg PO DAILY [facility] Stop: 04/19/25 08:59 Last Admin: 03/21/25 08:25 Dose: 12.5 mg Tamsulosin HCl (Tamsulosin Hcl 0.4 Mg Cap) 0.4 mg PO DAILY [facility] Stop: 04/18/25 08:59 Last Admin: 03/21/25 08:25 Dose: 0.4 mg Torsemide (Torsemide 20 Mg Tab) 20 mg PO QAM [facility] Stop: 04/18/25 13:29 Last Admin: 03/21/25 08:25 Dose: 20 mg Umeclidinium/Vilanterol (Umeclidinium/Vilanterol 62.5/25mcg 7 Puffs/Inhaler) 1 puffs INH DAILY [facility] Stop: 04/18/25 08:59 Last Admin: 03/21/25 08:25 Dose: 1 puffs Vitamin D (Cholecalciferol 25 Mcg (1000 Units) Tab) 50 mcg PO QAM [facility] Stop: 04/18/25 08:59 Last Admin: 03/21/25 08:24 Dose: 50 mcg
[2025-03-22 07:38] LABS: Basophils # (auto) 0.05 K/uL (0.00-0.20); Basophils % (auto) 0.8 %; Eosinophils # (auto) 0.76 K/uL (0.00-0.50); Eosinophils % (auto) 11.9 %; Hemoglobin 8.2 g/dl (14.0-18.0); Immature Granulocytes # (auto) 0.07 K/uL (0.01-0.20); Immature Granulocytes % (auto) 1.1 %; Lymphocytes # (auto) 0.78 K/uL (1.20-3.40); Lymphocytes % (auto) 12.2 %; Mean Corpuscular Hemoglobin 30.8 pg (25.0-34.0); Mean Corpuscular Hgb Conc 32.8 g/dL (32.0-36.0); Mean Platelet Volume 9.9 fL (9.4-12.4); Monocytes # (auto) 0.73 K/uL (0.11-0.59); Monocytes % (auto) 11.4 %; Neutrophils # (auto) 4.01 K/uL (1.40-6.50); Neutrophils % (auto) 62.6 %; Platelet Count 215 K/uL (130-400); RDW Coefficient of Variation 15.9 % (11.5-14.5); Red Blood Count 2.66 M/uL (4.70-6.10)
[2025-03-22 07:46] LABS: BUN Creatinine Ratio 13.8 (10-20); Calcium 9.1 mg/dl (8.6-10.3); Creatinine Clr Calc Pharmacy 12.2 ml/min; Magnesium 2.2 mg/dl (1.7-2.4); Potassium 3.7 mmol/L (3.5-5.1)
[2025-03-22 08:26] VITALS: TEMP 98.1
[2025-03-22 11:38] VITALS: BP 151/84
--- NOTE | 2025-03-22 14:54 | Hospitalist Progress Note ---
Date of Service March 22, 2025 Assessment & Plan (1) Chest pain: Plan: #NSTEMI #CAD #S/P Stent #Hypertensive urgency Patient is 85-year-old male with PMH chronic HFpEF, CAD s/p stent, PVD, history AAA repair, history of carotid endarterectomy, HTN, HLD, history of TIA, history of lung cancer s/p surgery, chronic anemia, CKD IV, chronic hypoxic respiratory failure on 2L oxygen presented to ER with c/o CP upon awakening in the morning for past 3 days. Today increased CP and did not self resolve. In ER given fentanyl 25mcg IV, aspirin 324mg po Troponin: 242, 396 and went up to 12 or 3 EKG: sinus tachycardia, rate 102, ST depression anterior, lateral leads. subsequent EKG did not show any ST elevation 01/03/2024 echo: EF: 55-60%, grade 1 diastolic dysfunction, moderate calcification aortic leaflets, mild-moderate aortic stenosis, trace mitral regurgitation, mild tricuspid regurgitation In ER Hemoccult reported negative ER physician reports spoke to dirt contractor who had recommended aspirin and starting IV heparin. ER physician reports did not start IV heparin with concern for current anemiaRepeat echo was unremarkable Cardiology consult- appreciate cardiology input and recommendation Repeat echo was unremarkable On isosorbide. Cardiology recommended hold and added nitro paste Continue metoprolol succinate, Plavix Takes aspirin 81mg on MWF, atorvastatin 10mg on MWF Continue home amlodipine, hydralazine, metoprolol succinate Lipid panel - remained unremarkable Denies any more cardiac symptoms and no arrhythmias and remains hemodynamically stable He has been feeling much better and has had physical therapy He will be going back to personal-[facility] this afternoon #Acute on Chronic HFpEF 01/03/2024 echo: EF: 55-60%, grade 1 diastolic dysfunction, moderate calcification aortic leaflets, mild-moderate aortic stenosis, trace mitral regurgitation, mild tricuspid regurgitation BNP: 469 Daily weight. Monitor I's &O's Received Lasix 40mg IV on the day of admission Spironolactone is on hold now from today 03/21/2025 He has been getting torsemide orally No symptoms of fluid overload #CKD IV BUN: 35, Cr: 3.6. (Baseline Cr: 3.8, GFR: 15) Monitor renal functions, avoid nephrotoxic agents when possible Is to have appt with nephrology, Dr Cowan 03/23/25 Renal function is slightly worse with BUN of 53 and creatinine 4.19- spironolactone is on hold now Will monitor PRP- creatinine remains stable at 4.07 and he will need to have follow-up appointment with hydrochloric area supervisor as an outpatient #Chronic Anemia H/H: 7.9 (baseline 8-9 with recent noted downtrend Hgb: 6.4 on 02/17/25, Hgb: 7.0 on 03/10/25) (03/03/25 iron: 32, TIBC: 187, transferrin: 17, ferritin: 54) Reports dark stools In ER Hemoccult negative His hemoglobin remains on the lower side and is 7.3 today No evidence of active GI bleed Received intravenous Venofer 200 mg IV Given cardiac symptoms and non-ST elevation NE will give 1 unit of blood transfusion Discussed with the patient and he is agreeable to it Received 1 unit of blood transfusion and hemoglobin is up at 8.2 His overall color is better and he is feeling a lot better following blood transfusion #TIA History TIA Continue aspirin, atorvastatin, Plavix #Chronic hypoxic respiratory failure On 2L oxygen via [place] Pt reports uses intermittently Continue 2L oxygen Has been saturating normally on room air and will plan to get to 8 steps before discharge if possible #Hx of cancer of lung: S/p lobectomy 2011 #AAA (abdominal aortic aneurysm): History of AAA repair 2016 #GERD (gastroesophageal reflux disease): Continue famotidine #Hx of gout: Continue allopurinol #BPH (benign prostatic hyperplasia): Continue dutasteride DVT Prophylaxis SCDs for now Admit telemetry DNR as per discussion with pt Follows with Dr Jasso for routine care Will be discharged to [facility] this afternoon Admission and Anticipated Discharge Date Admission Date: March 18, 2025 Subjective 03/21/2025 The patient was seen and examined in telemetry unit He has been feeling much better denies any cardiac symptoms Awaiting PT evaluation prior to discharge 03/22/2025 The patient was seen and examined in telemetry unit He is status post 1 unit of blood transfusion and has been feeling a lot better Denies any cardiac symptoms and has had physical therapy and recommended to go back to [facility] Review of Systems Review of Systems: All systems reviewed and are unremarkable except as noted below Physical Exam Physical Exam: Lying in bed without any acute distress Constitutional: + ill appearing and average body habitus Eyes: PERRL, conjunctivae normal, anicteric sclerae ENMT: external ear and nose normal, oropharynx normal Neck: trachea midline, no thyromegaly Respiratory: no respiratory distress Auscultation: lungs clear to auscultation bilaterally Cardiovascular: Rate/Rhythm: regular rate and regular rhythm; not tachycardic Heart Sounds: normal S1 and normal S2; no murmur Extremities: no edema Gastrointestinal (Abdomen): Inspection/Auscultation: normal bowel sounds; abdomen not distended Percussion/Palpation: abdomen soft; abdomen nontender Neurologic: normal touch/pain/proprioception and moves all extremities; no focal motor deficits Lymphatic: no cervical or axillary lymphadenopathy Results & Data Results & Data Vital Signs (Past 12 Hours) Vital Signs Temp Pulse Pulse Resp BP Pulse Ox O2 Del Method 03/22/25 11:38 36.7 C 74 18 151/84 H 97 Room Air 03/22/25 08:25 36.7 C 70 18 167/105 H 94 Room Air 03/22/25 07:20 64 03/22/25 03:07 37.0 C 69 18 140/72 96 Room Air Laboratory Results Short CBC 03/22/25 Range/Units 06:54 WBC 6.40 (4.8-10.8) K/ul Hgb 8.2 L (14.0-18.0) g/dl Hct 25.0 L (42.0-52.0) % Plt Count 215 (130-400) K/uL BMP 03/22/25 06:54 Sodium 138 Potassium 3.7 Chloride 106 Carbon Dioxide 24 BUN 56 H Creatinine 4.07 H Glucose 89 Calcium 9.1 Medications Administered Current Inpatient Medications Acetaminophen (Acetaminophen 325 Mg Tab) 650 mg PO Q4H PRN PRN Reason: Pain or Fever Stop: 04/17/25 20:43 Allopurinol (Allopurinol 100 Mg Tab) 100 mg PO Mo@0900 [facility] Stop: 04/20/25 08:59 Last Admin: 03/21/25 08:24 Dose: 100 mg Amlodipine Besylate (Amlodipine Besylate 5 Mg Tab) 10 mg PO DAILY [facility] Stop: 04/18/25 08:59 Last Admin: 03/22/25 09:46 Dose: 10 mg Aspirin (Aspirin 81 Mg Ectab) 81 mg PO DAILY [facility] Stop: 04/18/25 08:59 Last Admin: 03/22/25 09:46 Dose: 81 mg Atorvastatin Calcium (Atorvastatin 10 Mg Tab) 10 mg PO [id number]@2100 [facility] Stop: 04/17/25 20:59 Last Admin: 03/21/25 20:16 Dose: 10 mg Clopidogrel Bisulfate (Clopidogrel Bisulfate 75 Mg Tab) 75 mg PO [facility] Stop: 04/17/25 20:59 Last Admin: 03/21/25 20:16 Dose: 75 mg Famotidine (Famotidine 10 Mg Tablet) 10 mg PO [facility] Stop: 04/17/25 20:59 Last Admin: 03/21/25 20:16 Dose: 10 mg Fluticasone Furoate (Fluticasone Furoate 100mcg 14 Puffs/Inhaler) 1 puffs INH DAILY [facility] Stop: 04/18/25 08:59 Last Admin: 03/22/25 09:47 Dose: 1 puffs Hydralazine HCl (Hydralazine Tab 50 Mg Tab) 50 mg PO BID [facility] Stop: 04/17/25 22:59 Last Admin: 03/22/25 09:47 Dose: 50 mg Isosorbide Mononitrate (Isosorbide [place] Extended Rel 30 Mg Tabcr) 90 mg PO QAM [facility] Stop: 04/18/25 08:59 Last Admin: 03/22/25 09:47 Dose: 90 mg Metoprolol Succinate (Metoprolol Succ 50mg Ext Rel Tab) 100 mg PO [facility] Stop: 04/19/25 20:59 Last Admin: 03/21/25 20:16 Dose: 100 mg Ondansetron HCl (Ondansetron Inj 2 Mg/Ml 2 Ml Vial) 4 mg IV Q6H PRN PRN Reason: Nausea Stop: 04/17/25 20:43 Polyethylene Glycol (Polyethylene (Miralax) 17 Gm Pack) 17 gm PO DAILY PRN PRN Reason: Constipation Stop: 04/17/25 20:43 Senna/Docusate Sodium (Docusate Sodium/Senna 50/8.6mg Tab) 1 tab PO [facility] Stop: 04/17/25 20:59 Last Admin: 03/21/25 20:16 Dose: 1 tab Spironolactone (Spironolactone 12.5 Mg Tab) 12.5 mg PO DAILY [facility] Stop: 04/19/25 08:59 Last Admin: 03/21/25 08:25 Dose: 12.5 mg Tamsulosin HCl (Tamsulosin Hcl 0.4 Mg Cap) 0.4 mg PO DAILY [facility] Stop: 04/18/25 08:59 Last Admin: 03/22/25 09:47 Dose: 0.4 mg Torsemide (Torsemide 20 Mg Tab) 20 mg PO QAM [facility] Stop: 04/18/25 13:29 Last Admin: 03/22/25 09:47 Dose: 20 mg Umeclidinium/Vilanterol (Umeclidinium/Vilanterol 62.5/25mcg 7 Puffs/Inhaler) 1 puffs INH DAILY [facility] Stop: 04/18/25 08:59 Last Admin: 03/22/25 09:47 Dose: 1 puffs Vitamin D (Cholecalciferol 25 Mcg (1000 Units) Tab) 50 mcg PO QAM [facility] Stop: 04/18/25 08:59 Last Admin: 03/22/25 09:46 Dose: 50 mcg
[2025-03-22 16:14] VITALS: PULSE 79; RESP 16; O2SAT 98
--- NOTE | 2025-03-23 11:26 | Discharge Summary ---
Date of Service March 23, 2025 Admission HPI Per Admitting Provider Patient is 85-year-old male with PMH chronic HFpEF, CAD s/p stent, PVD, history AAA repair, history of carotid endarterectomy, HTN, HLD, history of TIA, history of lung cancer s/p surgery, chronic anemia, CKD IV, chronic hypoxic respiratory failure on 2L oxygen presented to ER with c/o CP. Patient reports the past 3 mornings has been waking up with anterior chest pain. States lasts several hours and then will resolve. Has not been using SL nitro. He states is to be using 2L O2 via [place] however "the machine annoys me" and hasn't been using and has not been using at night. Patient states he thinks he can use oxygen as needed. Reports having chronic SOB with exertion, and doesn't think its worse than usual. Today patient reported patient awoke this morning with 7/10 left sided chest pain described as pressure and EMS was called. Denies diaphoresis, nausea, vomiting, dizziness, syncope. He feels like his heart racing in the morning. He is unsure if any increased BLE edema. Patient states hasn't taken his morning meds and has not taken any nitroglycerin. States sometimes will have a nonproductive cough but feels this is not new. He states last week he started noticing very dark almost black color stools. Denies hematochezia. EMS had reported initial HR: 135 down to 70s, with BP: 85/46 and 119/62. Was given 600ml NSS by EMS. Denies fever/chills, diaphoresis, N/V/D/C, CORREA, dizziness, syncope, neck pain, sore throat, rhinorrhea, abdominal pain, paresthesias, weakness, extremity weakness, rashes, dysuria, hematuria. Admission Exam Per Admitting Provider Physical Exam: General: no acute distress, sitting up in bed on 2L via [place], WDWN Head: normocephalic, atraumatic Eyes: conjunctiva non-injected, anicteric ENT: normal inspection external ears, nose, mucous membranes moist Neck: supple, trachea midline Lungs: no respiratory distress on current 2L via [place] with O2 sat 99%, +rales at bases CV: RRR, 1-2+pretibial edema Abd: normal BS, soft, non-tender Ext: no cyanosis, no calf tenderness Neuro: A&O x 3, no focal deficits noted, normal affect Skin: warm, dry Principal Diagnosis Type II demand ischemia non-STEMI Uncontrolled hypertension Chronic renal failure stage IV Anemia of chronic renal failure and iron deficiency Discharge Exam Lying in bed without any acute distress Constitutional + ill appearing and average body habitus Eyes PERRL, conjunctivae normal, anicteric sclerae ENMT external ear and nose normal, oropharynx normal Neck trachea midline, no thyromegaly Respiratory no respiratory distress Auscultation: lungs clear to auscultation bilaterally Cardiovascular Rate/Rhythm: regular rate and regular rhythm; not tachycardic Heart Sounds: normal S1 and normal S2; no murmur Extremities: no edema Gastrointestinal (Abdomen) Inspection/Auscultation: normal bowel sounds; abdomen not distended Percussion/Palpation: abdomen soft; abdomen nontender Neurologic normal touch/pain/proprioception and moves all extremities; no focal motor deficits Lymphatic no cervical or axillary lymphadenopathy Discharge Data Allergies Allergy/AdvReac Type Severity Reaction Status Date / Time Penicillins Allergy Intermediate Rash Verified 04/01/24 11:24 Consultations 03/18/25 13:07 ED Decision to Admit Stat 03/18/25 13:52 Consult Cardiology Routine Hospital Course (1) Chest pain: #NSTEMI #CAD #S/P Stent #Hypertensive urgency Patient is 85-year-old male with PMH chronic HFpEF, CAD s/p stent, PVD, history AAA repair, history of carotid endarterectomy, HTN, HLD, history of TIA, history of lung cancer s/p surgery, chronic anemia, CKD IV, chronic hypoxic respiratory failure on 2L oxygen presented to ER with c/o CP upon awakening in the morning for past 3 days. Today increased CP and did not self resolve. In ER given fentanyl 25mcg IV, aspirin 324mg po Troponin: 242, 396 and went up to 12 or 3 EKG: sinus tachycardia, rate 102, ST depression anterior, lateral leads. subsequent EKG did not show any ST elevation 01/03/2024 echo: EF: 55-60%, grade 1 diastolic dysfunction, moderate calcification aortic leaflets, mild-moderate aortic stenosis, trace mitral regurgitation, mild tricuspid regurgitation In ER Hemoccult reported negative ER physician reports spoke to computer compositor who had recommended aspirin and starting IV heparin. ER physician reports did not start IV heparin with concern for current anemiaRepeat echo was unremarkable Cardiology consult- appreciate cardiology input and recommendation Repeat echo was unremarkable On isosorbide. Cardiology recommended hold and added nitro paste Continue metoprolol succinate, Plavix Takes aspirin 81mg on MWF, atorvastatin 10mg on MWF Continue home amlodipine, hydralazine, metoprolol succinate Lipid panel - remained unremarkable Denies any more cardiac symptoms and no arrhythmias and remains hemodynamically stable He has been feeling much better and has had physical therapy He will be going back to personal-retirement this afternoon #Acute on Chronic HFpEF 01/03/2024 echo: EF: 55-60%, grade 1 diastolic dysfunction, moderate calcification aortic leaflets, mild-moderate aortic stenosis, trace mitral regurgitation, mild tricuspid regurgitation BNP: 469 Daily weight. Monitor I's &O's Received Lasix 40mg IV on the day of admission Spironolactone is on hold now from today 03/21/2025 He has been getting torsemide orally No symptoms of fluid overload #CKD IV BUN: 35, Cr: 3.6. (Baseline Cr: 3.8, GFR: 15) Monitor renal functions, avoid nephrotoxic agents when possible Is to have appt with nephrology, Dr Cowan 03/23/25 Renal function is slightly worse with BUN of 53 and creatinine 4.19- spironolactone is on hold now Will monitor PRP- creatinine remains stable at 4.07 and he will need to have follow-up appointment with business development manager as an outpatient #Chronic Anemia H/H: 7.9/ (baseline 8-9 with recent noted downtrend Hgb: 6.4 on 02/17/25, Hgb: 7.0 on 03/10/25) (03/03/25 iron: 32, TIBC: 187, transferrin: 17, ferritin: 54) Reports dark stools In ER Hemoccult negative His hemoglobin remains on the lower side and is 7.3 today No evidence of active GI bleed Received intravenous Venofer 200 mg IV Given cardiac symptoms and non-ST elevation CT will give 1 unit of blood transfusion Discussed with the patient and he is agreeable to it Received 1 unit of blood transfusion and hemoglobin is up at 8.2 His overall color is better and he is feeling a lot better following blood transfusion #TIA History TIA Continue aspirin, atorvastatin, Plavix #Chronic hypoxic respiratory failure On 2L oxygen via [place] Pt reports uses intermittently Continue 2L oxygen Has been saturating normally on room air and will plan to get to 8 steps before discharge if possible #Hx of cancer of lung: S/p lobectomy 2011 #AAA (abdominal aortic aneurysm): History of AAA repair 2017 #GERD (gastroesophageal reflux disease): Continue famotidine #Hx of gout: Continue allopurinol #BPH (benign prostatic hyperplasia): Continue dutasteride DVT Prophylaxis SCDs for now Admit telemetry DNR as per discussion with pt Follows with Dr Jasso for routine care Will be discharged to [facility] this afternoon Total Time Total Time Spent Total Time Spent (In Minutes): 40 minutes Discharge Plan Discharge Items Patient Disposition: Transfer Residential Fac Reason For Visit: CP Discharge Diagnosis: Type II demand ischemia non-STEMI Uncontrolled hypertension Chronic renal failure stage IV Anemia of chronic renal failure and iron deficiency Condition on Discharge: Fair Activity: Resume your previous activity Activity Comment: Increase activity as tolerated Non-emergency contact: Primary Care Provider Call non-emergency contact if: you have any medication questions and your symptoms worsen Follow-up/Referrals: Aura Jasso MD [Primary Care Provider] - (Please make an appointment with your PCP within 7 days.) Diet: Heart Healthy and Low Sodium (2gm) Addtl Attending Provider Instructions: Continue to follow with your physicians to monitor your blood pressure. You may need additional adjustments in your medicines Keep appointment with your business development manager as scheduled on Friday. May need additional iron and erythropoietin treatments Pending Studies at Discharge: No Stand-Alone Forms: My [facility] Skilled Items Patient informed of condition?: Yes DNR: Yes Discharge Level of Care: Skilled Communicable Disease: No Discharge Prognosis: Stable Lines: None Urinary Catheter: No Medications and DC Order Prescriptions: New metoprolol succinate 50 mg Tablet Extended Release 24 Hr 100 mg PO HS Qty: 30 0RF isosorbide mononitrate 30 mg Tablet Extended Release 24 Hr 90 mg PO QAM Qty: 90 0RF amlodipine [Norvasc] 5 mg Tablet 10 mg PO DAILY Qty: 30 0RF Continued atorvastatin 10 mg Tablet 10 mg PO 3XWK Rx Instructions: Friday, Friday and Friday at bedtime clopidogrel 75 mg Tablet 75 mg PO HS allopurinol 100 mg Tablet 100 mg PO UD Rx Instructions: Take fri cholecalciferol (vitamin D3) [Vitamin D3] 50 mcg (2,000 unit) Tablet 50 mcg PO QAM aspirin 81 mg tablet,delayed release (DR/EC) 81 mg PO 3XWK Rx Instructions: Friday and Friday acetaminophen [Tylenol] 325 mg Tablet 650 mg PO Q4H PRN (Reason: Pain/Fever) torsemide 20 mg Tablet 20 mg PO 3XWK Rx Instructions: Friday, Friday and Friday - Hold if standing systolic is less than or equal to 130 famotidine 10 mg Tablet 10 mg PO HS ondansetron HCl 4 mg Tablet 4 mg PO Q8H PRN (Reason: Nausea) Rx Instructions: No frequency given [facility] sennosides-docusate sodium [Senna Plus] 8.6-50 mg Tablet 1 tab-cap PO HS tamsulosin 0.4 mg Capsule 0.4 mg PO DAILY bisacodyl 10 mg Suppository 10 mg [place] DIRECTED PRN (Reason: Constipation) Rx Instructions: No frequency given on med list from [facility] facility Tussin CF Cough-Cold 5-10-100 mg/5 mL Liquid 10 ml PO Q4H PRN (Reason: Cough and Cold) calcium carbonate [Antacid (calcium carbonate)] 200 mg calcium (500 mg) Tablet,Chewable 200 mg PO DIRECTED PRN (Reason: Indigestion) Rx Instructions: No frequency given on med list from [facility] nitroglycerin 0.4 mg Tablet, Sublingual 0.4 mg sublingual DIRECTED PRN (Reason: Chest Pain) Rx Instructions: Give every 5 mins x 2, if not relieve after 3 doses call 911 hydralazine 50 mg Tablet 50 mg PO BID Rx Instructions: Hold if standing systolic is less than 130 albuterol sulfate 90 mcg/actuation Hfa Aerosol Inhaler 2 puff INHALATION Q6H PRN (Reason: Cough/Wheezing) lutein-zeaxanthin [Ocuvite Blue Light] 25-5 mg Capsule 1 cap PO 3XWK Rx Instructions: Friday, Friday and Friday Icy Hot Max (lido HCl-menthol) 4-1 % Cream 1 applic TOPICAL TID PRN (Reason: Pain) Metamucil 3.4 gram/5.4 gram Powder 1 tbsp PO DAILY PRN (Reason: Constipation) Rx Instructions: mix into at least 8 oz of water or juice before administering. No frequency given on med list from detention facility Renny Keller 100-62.5-25 mcg Blister With Device 1 inh INHALATION DAILY spironolactone 25 mg tablet 12.5 mg PO DAILY Qty: 30 0RF Rx Instructions: - Hold if standing systolic is less than or equal to 130 Discontinued isosorbide mononitrate 60 mg Tablet Extended Release 24 Hr 60 mg PO QAM Rx Instructions: - Hold if standing systolic is less than 110 amlodipine 5 mg tablet 5 mg PO DAILY Rx Instructions: - Hold if standing systolic is less than 110 metoprolol succinate 50 mg Tablet Extended Release 24 Hr 75 mg PO HS Rx Instructions: Hold for SBP < 120 Hold for HR </equal to 60 Discharge Orders: Discharge Order (Routine); Ordered 03/22/25 Ordered By: Rafaela Forbes Admission Data Admit Date/Time: 03/18/25 13:51 Attending Provider: Rafaela Forbes Admit Provider: Kathy Langston Primary Care Provider: Aura Jasso Other Providers: Ari Sales Other Interventions: Discharge Summary Assessment (RN) Last Done: 03/22/25 15:32
== END 2025-03-22 16:00 | DRG 280 ==
LOC: ED 09:14 → SUATTDRO 13:51 → 2E 13:51
DX: N40.0 Benign prostatic hyperplasia without lower urinary tract symptoms; K21.9 Gastro-esophageal reflux disease without esophagitis; Z95.5 Presence of coronary angioplasty implant and graft; Z88.0 Allergy status to penicillin; J96.11 Chronic respiratory failure with hypoxia; Z79.82 Long term (current) use of aspirin; I71.40 Abdominal aortic aneurysm, without rupture, unspecified; Z86.73 Personal history of transient ischemic attack (TIA), and cerebral infarction without residual deficits; D63.1 Anemia in chronic kidney disease; I13.0 Hypertensive heart and chronic kidney disease with heart failure and stage 1 through stage 4 chronic kidney disease, or unspecified chronic kidney disease; I21.4 Non-ST elevation (NSTEMI) myocardial infarction; I73.9 Peripheral vascular disease, unspecified; Z79.899 Other long term (current) drug therapy; Z66 Do not resuscitate; Z85.118 Personal history of other malignant neoplasm of bronchus and lung; I50.33 Acute on chronic diastolic (congestive) heart failure; Z87.891 Personal history of nicotine dependence; I08.3 Combined rheumatic disorders of mitral, aortic and tricuspid valves; N18.4 Chronic kidney disease, stage 4 (severe); M10.9 Gout, unspecified; E78.5 Hyperlipidemia, unspecified; Z79.02 Long term (current) use of antithrombotics/antiplatelets; I16.0 Hypertensive urgency; Z99.81 Dependence on supplemental oxygen; I70.0 Atherosclerosis of aorta

== ENCOUNTER 2025-08-21 09:34 | Inpatient (IN) ==
--- NOTE | 2025-08-21 09:49 | Emergency Department Note ---
Impression & Plan Chest pain, Elevated troponin, ESRD on hemodialysis, New onset left bundle branch block (LBBB), Paroxysmal supraventricular tachycardia ED Provider Note NAME: RENE MAK AGE: 85 SEX: M : 1940 ARRIVES VIA: Ambulance INFORMANT: Patient, EMS ED PROVIDER(S): Alberto Calle DO CHIEF COMPLAINT: dysrhythmia HPI: This is an 85-year-old male with the PMHx of ESRD on hemodialysis Friday, heart failure with reserved ejection fraction, hypertension, hyperlipidemia, AAA, CAD s/p PCI, aortic stenosis presenting to [facility] for further evaluation of abnormal heart rate/rhythm. Patient is accompanied by EMS who provide additional history. EMS states that the patient currently resides in SNF. He was ambulating to the dining joshi and developed chest palpitations as well as pain. He was dyspneic and diaphoretic. They deny fever or chills. No cough or congestion. They deny abdominal pain, nausea and vomiting. No urinary complaints. No recent changes in bowel movements. Patient denies recent changes in medications or OTC supplements. Patient offers no other complaints, today. EMS reported that he was in a narrow complex tachycardia that converted to NSR with 6 mg IVP Adenosine prior to arrival. The patient's symptoms have resolved without further interventions. ADDITIONAL HISTORY OBTAINED: Per HPI Chronic Medical/Social Conditions Affecting Care: Per HPI PAST MEDICAL HISTORY: See Below PAST SURGICAL HISTORY: See Below FAMILY HISTORY: See Below SOCIAL HISTORY: See Below HOME MEDICATIONS: See Below ALLERGIES: See Below VITALS: See Below PHYSICAL EXAMINATION: GENERAL: Sitting up in bed, alert, well appearing, well nourished, no distress, non-toxic EYE EXAM: normal conjunctiva. PERRL and EOM's grossly intact. OROPHARYNX: no exudate, no erythema, lips, buccal mucosa, and tongue normal and mucous membranes are moist NECK: supple, no nuchal rigidity, no adenopathy, non-tender LUNGS: Clear to auscultation. Normal chest wall mechanics HEART: no murmurs, regular rate, regular rhythm ABDOMEN: abdomen soft, non-tender, no masses, no rebound or guarding. BACK: Back is symmetrical on inspection and there is no deformity, no midline tenderness, no CVA tenderness. SKIN: no rashes and no bruising UPPER EXTREMITIES: upper extremities are grossly normal. LOWER EXTREMITIES: No pitting edema. NEURO EXAM: Normal sensorium, GCS 15, normal speech, no gross weakness of arms, no gross weakness of legs. MEDICAL DECISION MAKING: Differential diagnoses includes but not limited to ACS, dysrhythmia, electrolyte derangements, volume overload, kidney dysfunction, stable vs unstable angina, CHF In summary, this is a 85 year old male who presented with new dysrhythmia. Differential as above. Nursing notes and pertinent past medical records reviewed. Vital signs reviewed and the patient is hypertensive but otherwise afebrile and HDS. History and presentation revealed numerous risk factors for ACS and dysrhythmias due to his comorbidities. Physical examination revealed no evidence of significant shock state but mild hypervolemia. As a result of my initial evaluation, the patient arrived by EMS. Prehospital EKGs independently interpreted by me reveal a tachycardia with frequent PVCs present. Ventricular rates were in the 160s. He is status post 6 mg of adenosine with conversion to normal sinus rhythm. The patient appears to have a new left bundle branch block. This is new as of March of this year. Does have extensive cardiovascular history including remote PCI to the LAD and RCA. Patient has numerous risk factors for cardiovascular disease. He had crushing chest pain this morning with diaphoresis. He is currently asymptomatic since being rate controlled. Repeat EKG was independently interpreted by me as normal sinus rhythm with left axis deviation and a left bundle branch block. I see no findings to that meet criteria for Sgarbossa criteria. Some hyperacute T waves. Patient is a dialysis patient will be given a gram of calcium gluconate. [facility] cardiology was paged to discuss EKG findings at 0948. Diagnostics interpreted by me include EKG and cardiac monitoring as listed below: -Cardiac Monitoring: An order was placed for continuous cardiac monitoring. The monitor shows a rate of 70-90s with regular rhythm. -ECG: NSR at a ventricular rate of 87bpm with a NEW LBBB and left axis deviation. No other findings to suggest STEMI. Patient completed laboratory studies and imaging. Results independently interpreted by me are troponin is only mildly elevated in the setting of ESRD. No significant electrolyte derangements otherwise. Mild anemia that is actually improved from prior. CXR interpreted by me shows interstitial edema and pleural effusion likely representing mild volume overload. The patient was managed with IV Calcium. He already received ASA load prior to arrival. Patient was discussed with Dr. Su ([facility] Cardiology). recommends observation. Will plan for serial EKGs and troponins. Patient will benefit from telemetry admission. Ultimately, the decision was made to admit the patient for chest pain with SVT as well as elevated troponin in the setting of ESRD. I discussed the case with the hospitalist service via telephone/TigerText and they are agreeable to admit the patient to their services. Based on the above, including the patient's age, coexisting illnesses, labs, imaging, and exam findings the decision to treat as an inpatient. I discussed the patient with the hospitalist team who recommended admission to their services. They received the medications, treatments, interventions indicated above and their condition remained guarded. I discussed my findings with the patient and their family and they understand and agree with the treatment plan. All patient / family questions were answered to their satisfaction. Consults/Care Managements Discussions: Per [facility] ER treatment provided: See above Procedures: None Critical Care: None The chart was completed utilizing [employer] Speech voice recognition software. Grammatical errors, random word insertions, pronoun errors, and incomplete sentences are an occasional consequence of this system due to software limitations, ambient noise, and hardware issues. Any formal questions or concerns about the content, text, or information contained within the body of this dictation should be directly addressed to the physician for clarification. Past Med/Surg History Problem List (Updated 08/23/25 @ 22:43 by Alberto Calle DO) Paroxysmal supraventricular tachycardia (Acute) New onset left bundle branch block (LBBB) (Acute) ESRD on hemodialysis (Acute) Elevated troponin (Acute) Chest pain (Acute) Urinary retention New onset left bundle branch block (LBBB) Right coronary artery occlusion ASCVD (arteriosclerotic cardiovascular disease) Aortic stenosis Chest pain at rest ESRD on hemodialysis Chronic hypoxic respiratory failure, on home oxygen therapy Chronic heart failure with preserved ejection fraction Hypertension, uncontrolled Anemia, chronic renal failure Elevated brain natriuretic peptide (BNP) level (Acute) Non-ST elevation MA (NSTEMI) (Acute) Anemia (Acute) Chest pain (Acute) Pleural effusion (Acute) CHF (congestive heart failure) (Acute) Flash pulmonary edema Bradycardia Encephalopathy acute Acute on chronic renal failure Aortic stenosis, moderate Acute heart failure with preserved ejection fraction Acute on chronic heart failure with normal ejection fraction BPH (benign prostatic hyperplasia) Hx of gout Hx of cancer of lung Chronic diastolic heart failure Hypertensive urgency SOB (shortness of breath) Palpitations Dyspnea (Acute) Brain TIA (Acute) Confusion (Acute) Expressive aphasia (Acute) Encephalopathy (Acute) TIA (transient ischemic attack) BPH loc w urin obs/LUTS Encounter for pre-operative examination HLD (hyperlipidemia) AAA (abdominal aortic aneurysm) GI bleed Chest pain Precordial chest pain (Acute) Anemia (Acute) Acute GI bleeding (Acute) Elevated troponin (Acute) Anemia recently admitted to [facility] for this GERD (gastroesophageal reflux disease) HTN (hypertension) (Acute) CAD (coronary atherosclerotic disease) "S/P LAD stent" Medical History Acute kidney injury superimposed on chronic kidney disease COVID-19 History of GI bleed 07/25/22, pt recently admitted to [facility] for gi bleed. pt "unsure of all the details, but know that I was anemic and had a couple pints of blood." Poor historian Hearing deficit bilat CORREA's Stomach ulcer pt "thinks it's gone now" Arthritis TIA (transient ischemic attack) X 2 "a few years ago was last one" Surgical History History of colonoscopy History of tooth extraction History of tonsillectomy and adenoidectomy H/O heart artery stent X 4 (? 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 Estate Utilization Officer Required: No Beliefs That Will Affect Care: None Current Living Situation: Personal Care Facility Current Living Situation Comment: [facility] How many Children do You have: 1 Feels Safe at Home: Yes Safety Concerns: Feels Safe At This Time Assistive Devices: Walker Allergies Allergies Allergy/AdvReac Type Severity Reaction Status Date / Time Penicillins Allergy Intermediate Rash Verified 04/01/24 11:24 Home Meds Home Medications Medication Instructions Recorded Confirmed allopurinol 100 mg tablet 100 mg PO WK 08/24/21 08/21/25 cholecalciferol (vitamin D3) 50 50 mcg PO QAM 08/24/21 08/21/25 mcg (2,000 unit) tablet (Vitamin D3) clopidogrel 75 mg tablet 75 mg PO QAM 08/24/21 08/21/25 aspirin 81 mg tablet,delayed 81 mg PO 3XWK 01/02/24 08/21/25 release acetaminophen 325 mg tablet 650 mg PO Q4H PRN Pain/Fever 03/18/25 08/21/25 (Tylenol) albuterol sulfate 90 mcg/actuation 2 puff inhalation Q6H PRN 03/18/25 08/21/25 aerosol inhaler Cough/Wheezing bisacodyl 10 mg rectal suppository 10 mg MN Q24H PRN Constipation 03/18/25 08/21/25 famotidine 10 mg tablet 10 mg PO HS 03/18/25 08/21/25 fluticasone fur. 100 mcg-umeclid 1 inh inhalation DAILY 03/18/25 08/21/25 62.5 mcg-vilant 25 mcg inhalat.powder (Trelegy Ellipta) lidocaine HCl 4 %-menthol 1 % 1 applic topical Q8H PRN Pain 03/18/25 08/21/25 topical cream (Icy Hot Max (lidocaine HCl-menthol)) lutein 25 mg-zeaxanthin 5 mg 1 cap PO 3XWK 03/18/25 08/21/25 capsule (Ocuvite Blue Light) nitroglycerin 0.4 mg sublingual 0.4 mg sublingual DIRECTED PRN 03/18/25 08/21/25 tablet Chest Pain ondansetron HCl 4 mg tablet 4 mg PO QAM Give before breakfast 03/18/25 08/21/25 kbnrizzwinvty-TK-wdrqjtkqjnm 5 10 ml PO Q4H PRN Cough and Cold 03/18/25 08/21/25 mg-10 mg-100 mg/5 mL oral liquid (Tussin CF Cough-Cold) psyllium husk 3.4 gram/5.4 gram 1 tbsp PO Q24H PRN Constipation 03/18/25 08/21/25 oral powder (Metamucil) sennosides 8.6 mg-docusate sodium 1 tab-cap PO HS 03/18/25 08/21/25 50 mg tablet (Senna Plus) tamsulosin 0.4 mg capsule 0.4 mg PO DAILY 03/18/25 08/21/25 amlodipine 10 mg tablet 10 mg PO QAM 08/21/25 08/21/25 calcium carbonate 500 mg PO Q6H PRN Indigestion 08/21/25 08/21/25 hydrocortisone 2.5 % topical cream 1 applic topical Q6H PRN Rectal 08/21/25 08/21/25 with perineal applicator Pain/Itchiness (Procto-Med HC) isosorbide mononitrate 60 mg 60 mg PO QAM 08/21/25 08/21/25 tablet,extended release 24 hr metoprolol succinate 100 mg 100 mg PO HS 08/21/25 08/21/25 tablet,extended release 24 hr torsemide 40 mg tablet 40 mg PO DAILY 08/21/25 08/21/25 Results & Data (ED) Vital Signs Vital Signs - 24 hr 08/21/25 09:41 08/21/25 09:44 08/21/25 09:44 Temperature 36.6 C Temperature Source Oral Pulse Rate 88 Respiratory Rate 18 Respiratory Effort / Characteristics Non-Labored Spontaneous Non-Labored Spontaneous Respiratory Depth Normal Normal Respiratory Pattern Regular Blood Pressure 158/88 H Blood Pressure Mean 111 Pulse Oximetry 96 Oxygen Delivery Method Room Air Room Air Room Air Sepsis Recent Fever Within 48 Hours No Sepsis New/Unexplained Change in Mental Status No Sepsis Action Taken by Nursing No Action Required 08/21/25 09:50 Temperature Temperature Source Pulse Rate 90 Respiratory Rate Respiratory Effort / Characteristics Respiratory Depth Respiratory Pattern Blood Pressure Blood Pressure Mean Pulse Oximetry Oxygen Delivery Method Sepsis Recent Fever Within 48 Hours Sepsis New/Unexplained Change in Mental Status Sepsis Action Taken by Nursing Laboratory Data 08/23/25 05:35 08/23/25 05:35 Lab Results 08/21/25 08/21/25 08/21/25 Range/Units 09:40 09:51 11:22 WBC 5.08 (4.8-10.8) K/ul RBC 3.32 L (4.70-6.10) M/uL Hgb 10.6 L (14.0-18.0) g/dl Hct 33.3 L (42.0-52.0) % MCV 100.3 H (80.0-100.0) fL MCH 31.9 (25.0-34.0) pg MCHC 31.8 L (32.0-36.0) g/dL RDW Std Deviation 55.3 H (36.4-46.3) fL RDW Coeff of Serene 16.4 H (11.5-14.5) % Plt Count 158 (130-400) K/uL MPV 9.0 L (9.4-12.4) fL Immature Gran % (Auto) 1.0 % Neut % (Auto) 61.7 % Lymph % (Auto) 20.5 % [place] % (Auto) 9.1 % Eos % (Auto) 7.3 % Baso % (Auto) 0.4 % Neut # (Auto) 3.14 (1.40-6.50) K/uL Lymph # (Auto) 1.04 L (1.20-3.40) K/uL [place] # (Auto) 0.46 (0.11-0.59) K/uL Eos # (Auto) 0.37 (0.00-0.50) K/uL Baso # (Auto) 0.02 (0.00-0.20) K/uL Immature Gran # (Auto) 0.05 (0.01-0.20) K/uL PT 10.9 (9.0-12.0) Seconds INR 1.0 (0.9-1.1) APTT 29 (21-31) Seconds PTT Ratio 1.1 VBG pH 7.41 (7.36-7.41) VBG pCO2 40 (38-50) mmHg VBG pO2 53 mmHg VBG HCO3 25 mmol/L VBG O2 Saturation 84.0 % VBG Base Excess 0.7 mEq/L Sodium 139 (136-145) mmol/L Potassium 3.9 (3.5-5.1) mmol/L Chloride 103 (98-107) mmol/L Carbon Dioxide 27 (21-32) mmol/L Anion Gap 9 (3-11) BUN 34 H (6-23) mg/dl Creatinine 4.73 H* (0.6-1.4) mg/dl Est Cr Clr Drug Dosing 10.5 ml/min eGFR 11.36 BUN/Creatinine Ratio 7.2 L (10-20) Glucose 149 H (70-99(Fasting)) mg/dl Calcium 9.5 (8.6-10.3) mg/dl Phosphorus 3.9 (2.5-4.9) mg/dl Magnesium 2.3 (1.7-2.4) mg/dl Total Bilirubin 0.6 (0.2-1.0) mg/dl AST 10 L (13-39) U/L ALT 6 L (7-52) U/L Alkaline Phosphatase 75 (34-104) U/L Troponin I High Sens 22.6 H 37.2 H D (0-20) pg/ml Total Protein 7.3 (6.0-8.3) gm/dl Albumin 3.8 (3.4-5.0) gm/dl Globulin 3.5 (2.5-4.0) gm/dl Albumin/Globulin Ratio 1.1 (0.9-2) Lipase 20 (11-82) U/L Administered Medications Allopurinol (Allopurinol 100 Mg Tab) 100 mg PO Mo@0900 [facility] Stop: 09/21/25 08:59 Last Admin: 08/22/25 08:44 Dose: 100 mg Documented By: CLARA Amlodipine Besylate (Amlodipine Besylate 5 Mg Tab) 10 mg PO DAILY [facility] Stop: 09/20/25 12:59 Last Admin: 08/23/25 08:05 Dose: 10 mg Documented By: Admin: 08/22/25 13:21 Dose: 10 mg Documented By: Admin: 08/21/25 14:00 Dose: 10 mg Documented By: TUGN Aspirin (Aspirin 81 Mg Ectab) 81 mg PO MoWeFr@0900 [facility] Stop: 09/21/25 08:59 Last Admin: 08/22/25 08:44 Dose: 81 mg Documented By: CLARA Atorvastatin Calcium (Atorvastatin 10 Mg Tab) 10 mg PO MoWeFr@2100 [facility] Stop: 09/21/25 20:59 Last Admin: 08/22/25 20:14 Dose: 10 mg Documented By: RACHANA Clopidogrel Bisulfate (Clopidogrel Bisulfate 75 Mg Tab) 75 mg PO HS [facility] Stop: 09/20/25 20:59 Last Admin: 08/23/25 20:09 Dose: 75 mg Documented By: Admin: 08/22/25 20:14 Dose: 75 mg Documented By: Admin: 08/21/25 20:07 Dose: 75 mg Documented By: TAYLOR Famotidine (Famotidine 20 Mg Tab) 10 mg PO HS [facility] Stop: 09/20/25 20:59 Last Admin: 08/23/25 20:09 Dose: 10 mg Documented By: Admin: 08/22/25 20:14 Dose: 10 mg Documented By: Admin: 08/21/25 20:15 Dose: 10 mg Documented By: TAYLOR Fluticasone Furoate (Fluticasone Furoate 100mcg 14 Puffs/Inhaler) 1 puffs INH DAILY [facility] Stop: 09/21/25 08:59 Last Admin: 08/23/25 08:05 Dose: 1 puffs Documented By: Admin: 08/22/25 08:45 Dose: 1 puffs Documented By: CLARA Heparin Sodium (Porcine) (Heparin Sod 5,000 Unit/0.5 Ml Vial) 5,000 units SQ Q12 [facility] Stop: 09/20/25 20:59 Last Admin: 08/23/25 20:10 Dose: 5,000 units Documented By: Admin: 08/23/25 10:07 Dose: 5,000 units Documented By: Admin: 08/22/25 20:15 Dose: 5,000 units Documented By: Admin: 08/22/25 08:52 Dose: 5,000 units Documented By: Admin: 08/21/25 20:15 Dose: 5,000 units Documented By: TAYLOR Hydralazine HCl (Hydralazine Tab 50 Mg Tab) 50 mg PO BID [facility] Stop: 09/20/25 20:59 Last Admin: 08/23/25 20:10 Dose: 50 mg Documented By: Admin: 08/23/25 08:06 Dose: 50 mg Documented By: Admin: 08/22/25 20:14 Dose: 50 mg Documented By: Admin: 08/22/25 13:21 Dose: 50 mg Documented By: Admin: 08/21/25 20:18 Dose: 50 mg Documented By: TAYLOR Isosorbide Mononitrate (Isosorbide [place] Extended Rel 30 Mg Tabcr) 90 mg PO QAM [facility] Stop: 09/21/25 08:59 Last Admin: 08/23/25 08:06 Dose: 90 mg Documented By: Admin: 08/22/25 13:22 Dose: 90 mg Documented By: LMP Melatonin (Melatonin 3 Mg Tab) 3 mg PO HS PRN PRN Reason: Sleep Stop: 09/20/25 23:39 Last Admin: 08/23/25 20:08 Dose: 3 mg Documented By: Admin: 08/21/25 23:52 Dose: 3 mg Documented By: NRS Metoprolol Succinate (Metoprolol Succ 50mg Ext Rel Tab) 100 mg PO HS [facility] Stop: 09/20/25 20:59 Last Admin: 08/23/25 20:09 Dose: 100 mg Documented By: Admin: 08/22/25 20:19 Dose: 100 mg Documented By: Admin: 08/21/25 20:17 Dose: 100 mg Documented By: NRS Multivitamins/Minerals (Cerovite Adv Formula Tab) 1 tab PO MoWeFr@2100 [facility] Stop: 09/21/25 20:59 Last Admin: 08/22/25 20:16 Dose: 1 tab Documented By: RACHANA Pantoprazole Sodium (Pantoprazole 40 Mg Tab) 40 mg PO QAM [facility] Stop: 09/21/25 13:59 Last Admin: 08/23/25 08:06 Dose: 40 mg Documented By: Admin: 08/22/25 14:49 Dose: 40 mg Documented By: LMP Ranolazine (Ranolazine 500 Mg Er Tab) 500 mg PO BID [facility] Stop: 09/21/25 20:59 Last Admin: 08/23/25 20:08 Dose: 500 mg Documented By: Admin: 08/23/25 08:06 Dose: 500 mg Documented By: Admin: 08/22/25 20:15 Dose: 500 mg Documented By: MNYocasta Senna/Docusate Sodium (Docusate Sodium/Senna 50/8.6mg Tab) 1 tab PO HS [facility] Stop: 09/20/25 20:59 Last Admin: 08/23/25 20:10 Dose: 1 tab Documented By: Admin: 08/22/25 20:14 Dose: 1 tab Documented By: Admin: 08/21/25 20:07 Dose: 1 tab Documented By: NRS Tamsulosin HCl (Tamsulosin Hcl 0.4 Mg Cap) 0.4 mg PO DAILY [facility] Stop: 09/21/25 08:59 Last Admin: 08/23/25 08:06 Dose: 0.4 mg Documented By: Admin: 08/22/25 08:44 Dose: 0.4 mg Documented By: LMP Torsemide (Torsemide 20 Mg Tab) 20 mg PO MoWeFr@0900 [facility] Stop: 09/21/25 08:59 Last Admin: 08/22/25 13:22 Dose: 20 mg Documented By: LMP Umeclidinium/Vilanterol (Umeclidinium/Vilanterol 62.5/25mcg 7 Puffs/Inhaler) 1 puffs INH DAILY [facility] Stop: 09/21/25 08:59 Last Admin: 08/23/25 08:05 Dose: 1 puffs Documented By: Admin: 08/22/25 08:45 Dose: 1 puffs Documented By: LMP Vitamin D (Cholecalciferol 25 Mcg (1000 Units) Tab) 50 mcg PO QAM [facility] Stop: 09/21/25 08:59 Last Admin: 08/23/25 08:05 Dose: 50 mcg Documented By: Admin: 08/22/25 08:44 Dose: 50 mcg Documented By: LMP Discontinued Medications Calcium Gluconate () 1,000 mg in 60 mls @ 240 mls/hr IV NOW STA Stop: 08/21/25 09:52 Last Infusion: 08/21/25 10:18 Dose: Infused Documented By: Admin: 08/21/25 09:56 Dose: 240 mls/hr Documented By: ECS Spironolactone (Spironolactone 12.5 Mg Tab) 12.5 mg PO DAILY [facility] Stop: 09/21/25 08:59 Last Admin: 08/22/25 13:22 Dose: 12.5 mg Documented By: LMP Discharge Plan Visit Data Chief Complaint: Cardiac Assessment ED Provider: Alberto Calle Discharge Problem: Chest pain, Elevated troponin, ESRD on hemodialysis, New onset left bundle branch block (LBBB), Paroxysmal supraventricular tachycardia Patient Disposition: Admitted As Inpatient Condition: Serious Discharge Instructions Interventions: ED Discharge Assessment Last Done: 08/21/25 12:20 Discharge Problem: Chest pain Qualifiers: Chest pain type: chest pain due to myocardial ischemia Ischemic chest pain type: unspecified angina pectoris type Qualified Code(s): I25.9 - Chronic ischemic heart disease, unspecified
[2025-08-21 09:53] LABS: Hematocrit (blood only) 33.3 % (42.0-52.0); Hemoglobin 10.6 g/dl (14.0-18.0); Immature Granulocytes # (auto) 0.05 K/uL (0.01-0.20); Immature Granulocytes % (auto) 1.0 %; Mean Corpuscular Hemoglobin 31.9 pg (25.0-34.0); Mean Corpuscular Volume 100.3 fL (80.0-100.0); Platelet Count 158 K/uL (130-400); RDW Standard Deviation 55.3 fL (36.4-46.3); Red Blood Count 3.32 M/uL (4.70-6.10); White Blood Count 5.08 K/ul (4.8-10.8)
[2025-08-21] MEDS: CALCIUM GLUCONATE 1,000 MG/60 ML BAG IV STA (09:56)
[2025-08-21 10:01] LABS: Base Excess VBG 0.7 mEq/L; HCO3 VBG 25 mmol/L; Oxygen Saturation VBG 84.0 %; PCO2 VBG 40 mmHg (38-50); PO2 VBG 53 mmHg; pH VBG 7.41 (7.36-7.41)
--- NOTE | 2025-08-21 10:08 | XRay Report ---
HISTORY: Chest pain. TECHNIQUE: Portable AP radiograph of the chest. COMPARISON: Chest radiograph dated 03/18/2025. FINDINGS: Dual-lumen right central venous catheter with tip at the superior cavoatrial junction. Mild vascular congestion and increased interstitial markings are similar to the prior study. Small left pleural effusion. No pneumothorax. No new focal consolidation. Mild cardiomegaly. Hiatal hernia. Left-sided aortic arch. Surgical clips projecting over the left hilum. Midline trachea. No acute osseous abnormality. IMPRESSION: * Interval placement of a dual-lumen right sided central venous catheter with tip at the superior cavoatrial junction. No pneumothorax. * Cardiomegaly with pulmonary vascular congestion suggesting CHF. Stable small left pleural effusion. * Large hiatal hernia. Electronically signed by Ciro Mcguire 08-21-2025 10:08 AM
[2025-08-21 10:21] LABS: Alanine Aminotransferase 6.0 U/L (7-52); Albumin Globulin Ratio 1.1 (0.9-2); Albumin Level 3.8 gm/dl (3.4-5.0); Alkaline Phosphatase 75.0 U/L (34-104); Anion Gap 9.0 (3-11); Bilirubin,Total 0.6 mg/dl (0.2-1.0); Blood Urea Nitrogen 34.0 mg/dl (6-23); Calcium 9.5 mg/dl (8.6-10.3); Carbon Dioxide 27.0 mmol/L (21-32); Chloride 103.0 mmol/L (98-107); Creatinine Clr Calc Pharmacy 10.5 ml/min; Globulin 3.5 gm/dl (2.5-4.0); Glucose 149.0 mg/dl (70-99(Fasting)); Lipase 20.0 U/L (11-82); Magnesium 2.3 mg/dl (1.7-2.4); Potassium 3.9 mmol/L (3.5-5.1); Sodium 139.0 mmol/L (136-145); Total Protein 7.3 gm/dl (6.0-8.3)
[2025-08-21 10:24] LABS: INR 1.0 (0.9-1.1); Partial Thromboplastin Time 29 Seconds (21-31); Prothrombin Time 10.9 Seconds (9.0-12.0)
--- NOTE | 2025-08-21 12:05 | History & Physical Report ---
Date of Service August 21, 2025 Assessment & Plan (1) Chest pain: Plan: History of significant CAD status post stent placement in LAD and right coronary artery with last diagnostic cath 2017 which demonstrated patent LAD stent with 50% narrowing and chronic right coronary occlusion Recent history of non-ST elevation IN in March of this year Came in with chest pain lasted for more than 15 minutes at breakfast Was in SVT and with 1 dose of adenosine reverted to sinus rhythm but noted to have left bundle branch block His initial troponin was 22 and that will be cycled He remains free from any pain in the emergency room and will continue all of his medications as an outpatient He will be admitted to telemetry unit and cardiology consultation will be taken (2) CAD (coronary atherosclerotic disease): Plan: as above (3) Chronic heart failure with preserved ejection fraction: Plan: History of chronic heart failure with preserved EF Latest echo on 03/18/2025 and showed moderate concentric LVH, LV wall motion is normal, LV systolic function is normal, LVEF was 55 to 60%, RV was normal in size and function, aortic valve is calcified to moderate to severe degree, moderate valvular aortic stenosis, there is mild mitral regurgitation and mild tricuspid regurgitation and pulmonary artery systolic pressure estimated to be 41 mmHg Minimal congestion and chest x-ray Will continue his home dose of torsemide and spironolactone and he will have dialysis tomorrow (4) Hypertension, uncontrolled: Plan: blood pressure remains reasonably controlled (5) Chronic hypoxic respiratory failure, on home oxygen therapy: Plan: He has been saturating normal and on room air now (6) ESRD on hemodialysis: Plan: He has been on dialysis now Has had dialysis on Friday and next dialysis on Friday Nephrology will be consulted (7) AAA (abdominal aortic aneurysm): Plan: No issues (8) Hx of cancer of lung: (9) Anemia, chronic renal failure: Plan: Hemoglobin remains stable at 10.6 DVT prophylaxis Subcu heparin CODE STATUS Full History of Present Illness Chief Complaint: Chest pain during breakfast Primary Care Provider: Aura Jasso MD He is an 85 years old male significant past medical history including chronic HF PEF, CAD status post multiple stents, PVD, history of AAA repair, hypertension hyperlipidemia, history of lung cancer status post surgery, chronic stage IV kidney disease on hemodialysis and chronic respiratory failure on 2 L of oxygen has been complaining of chest pain during breakfast this morning. He he believes the pain was like that during his heart attack before and that was associated with nausea without vomiting, some shortness of breath and sweating. The pain lasted for 15 to 20 minutes and he received sublingual nitro during transportation to the hospital and remained free from any pain in the hospital. He was noted to be SVT in the emergency room and received a dose of adenosine that converted him to sinus rhythm but the EKG revealed to be new left bundle branch block. His initial troponin was mildly elevated at 22. He will be admitted to telemetry unit and the case was discussed with the repeater chief he does not require to be given any heparin at this time. He has a dialysis on Friday and his next dialysis will be on Friday. Nephrology will be consulted Allergies Allergy/AdvReac Type Severity Reaction Status Date / Time Penicillins Allergy Intermediate Rash Verified 04/01/24 11:24 Home Medications Medication Instructions Recorded Confirmed Type allopurinol 100 mg tablet 100 mg PO UD 08/24/21 03/18/25 History atorvastatin 10 mg tablet 10 mg PO 3XWK 08/24/21 03/18/25 History cholecalciferol (vitamin D3) 50 50 mcg PO QAM 08/24/21 03/18/25 History mcg (2,000 unit) tablet (Vitamin D3) clopidogrel 75 mg tablet 75 mg PO HS 08/24/21 03/18/25 History aspirin 81 mg tablet,delayed 81 mg PO 3XWK 01/02/24 03/18/25 History release spironolactone 25 mg tablet 12.5 mg (1/2 x 25 mg) PO DAILY #30 04/09/24 03/18/25 Rx tabs acetaminophen 325 mg tablet 650 mg PO Q4H PRN Pain/Fever 03/18/25 03/18/25 Hist ory (Tylenol) albuterol sulfate 90 mcg/actuation 2 puff inhalation Q6H PRN 03/18/25 03/18/25 History aerosol inhaler Cough/Wheezing bisacodyl 10 mg rectal suppository 10 mg ND DIRECTED PRN 03/18/25 03/18/25 History Constipation calcium carbonate (Antacid 200 mg PO DIRECTED PRN 03/18/25 03/18/25 History (calcium carbonate)) Indigestion famotidine 10 mg tablet 10 mg PO HS 03/18/25 03/18/25 History fluticasone fur. 100 mcg-umeclid 1 inh inhalation DAILY 03/18/25 03/18/25 History 62.5 mcg-vilant 25 mcg inhalat.powder (Trelegy Ellipta) hydralazine 50 mg tablet 50 mg PO BID 03/18/25 03/18/25 History lidocaine HCl 4 %-menthol 1 % 1 applic topical TID PRN Pain 03/18/25 03/18/25 History topical cream (Icy Hot Max (lidocaine HCl-menthol)) lutein 25 mg-zeaxanthin 5 mg 1 cap PO 3XWK 03/18/25 03/18/25 History capsule (Ocuvite Blue Light) nitroglycerin 0.4 mg sublingual 0.4 mg sublingual DIRECTED PRN 03/18/25 03/18/25 History tablet Chest Pain ondansetron HCl 4 mg tablet 4 mg PO Q8H PRN Nausea 03/18/25 03/18/25 History dzzlivqcnbvnx-VT-zzjkawvxmjz 5 10 ml PO Q4H PRN Cough and Cold 03/18/25 03/18/25 History mg-10 mg-100 mg/5 mL oral liquid (Tussin CF Cough-Cold) psyllium husk 3.4 gram/5.4 gram 1 tbsp PO DAILY PRN Constipation 03/18/25 03/18/25 History oral powder (Metamucil) sennosides 8.6 mg-docusate sodium 1 tab-cap PO HS 03/18/25 03/18/25 History 50 mg tablet (Senna Plus) tamsulosin 0.4 mg capsule 0.4 mg PO DAILY 03/18/25 03/18/25 History torsemide 20 mg tablet 20 mg PO 3XWK 03/18/25 03/18/25 History amlodipine 5 mg tablet (Norvasc) 10 mg (2 x 5 mg) PO DAILY #30 tabs 03/20/25 Rx isosorbide mononitrate 30 mg 90 mg (3 x 30 mg) PO QAM #90 tabs 03/20/25 Rx tablet,extended release 24 hr metoprolol succinate 50 mg 100 mg (2 x 50 mg) PO HS #30 tabs 03/20/25 Rx tablet,extended release 24 hr Past Med/Surg History Problem List (Updated 08/21/25 @ 11:57 by Rafaela Forbes MD) ESRD on hemodialysis Chronic hypoxic respiratory failure, on home oxygen therapy Chronic heart failure with preserved ejection fraction Hypertension, uncontrolled Anemia, chronic renal failure Elevated brain natriuretic peptide (BNP) level (Acute) Non-ST elevation IN (NSTEMI) (Acute) Anemia (Acute) Chest pain (Acute) Pleural effusion (Acute) CHF (congestive heart failure) (Acute) Flash pulmonary edema Bradycardia Encephalopathy acute Acute on chronic renal failure Aortic stenosis, moderate Acute heart failure with preserved ejection fraction Acute on chronic heart failure with normal ejection fraction BPH (benign prostatic hyperplasia) Hx of gout Hx of cancer of lung Chronic diastolic heart failure Hypertensive urgency SOB (shortness of breath) Palpitations Dyspnea (Acute) Brain TIA (Acute) Confusion (Acute) Expressive aphasia (Acute) Encephalopathy (Acute) TIA (transient ischemic attack) BPH loc w urin obs/LUTS Encounter for pre-operative examination HLD (hyperlipidemia) AAA (abdominal aortic aneurysm) GI bleed Chest pain Precordial chest pain (Acute) Anemia (Acute) Acute GI bleeding (Acute) Elevated troponin (Acute) Anemia recently admitted to [facility] for this GERD (gastroesophageal reflux disease) HTN (hypertension) (Acute) CAD (coronary atherosclerotic disease) "S/P LAD stent" Medical History CKD (chronic kidney disease) stage 4, GFR 15-29 ml/min Acute kidney injury superimposed on chronic kidney disease COVID-19 History of GI bleed 07/25/22, pt recently admitted to [facility] for gi bleed. pt "unsure of all the details, but know that I was anemic and had a couple pints of blood." Poor historian Hearing deficit bilat CORREA's Stomach ulcer pt "thinks it's gone now" Arthritis TIA (transient ischemic attack) X 2 "a few years ago was last one" Surgical History History of colonoscopy History of tooth extraction History of tonsillectomy and adenoidectomy H/O heart artery stent X 4 (? DATE-"maybe 5 years ago" "LAST 2 STENTS PLACED AT [facility], OTHER 2 AT [facility]") S/P lobectomy of lung History of left-sided carotid endarterectomy H/O aortic aneurysm repair 2013 AT [facility] Family History Other No family history of adverse response to anesthesia No significant family history Social History Smoking Status: Never smoker Tobacco Type: Cigarettes Second Hand Exposure: No; Do You Dip or Chew Tobacco: No; Hx Alcohol Use: No Hx Substance Use: No Preferred Language: Arabic Communication Ability: Effective Janitor And Cleaner Required: No Beliefs That Will Affect Care: None Current Living Situation: Personal Care Facility Current Living Situation Comment: [facility] How many Children do You have: 1 Feels Safe at Home: Yes Assistive Devices: Walker Review of Systems Review of Systems: All systems reviewed and are unremarkable except as noted below Physical Exam Physical Exam: Lying in bed without any acute distress Constitutional: well developed, well nourished and + ill appearing Eyes: PERRL, conjunctivae normal, anicteric sclerae ENMT: external ear and nose normal, oropharynx normal Neck: trachea midline, no thyromegaly Respiratory: no respiratory distress Auscultation: + diminished lung sounds and + crackles ( occasional crackles bibasilarly) Cardiovascular: Rate/Rhythm: regular rate and regular rhythm; not tachycardic Heart Sounds: normal S1 and normal S2; no murmur Extremities: no edema Chest (Breasts): Additional Comments: Right-sided chest port remain intact Gastrointestinal (Abdomen): Inspection/Auscultation: normal bowel sounds; abdomen not distended Percussion/Palpation: abdomen soft; abdomen nontender Musculoskeletal: No acute arthritis involving any of the joint Neurologic: normal touch/pain/proprioception and moves all extremities; no focal motor deficits Lymphatic: no cervical or axillary lymphadenopathy Results & Data Results & Data Vital Signs (Past 12 Hours) Vital Signs Temp Pulse Resp BP Pulse Ox O2 Del Method 08/21/25 11:00 84 17 159/92 H 97 Room Air 08/21/25 10:30 84 19 161/82 H 96 Room Air 08/21/25 10:18 86 17 97 08/21/25 10:06 72 18 95 Room Air 08/21/25 10:00 90 16 165/82 H 96 Room Air 08/21/25 09:50 90 08/21/25 09:44 Room Air 08/21/25 09:44 36.6 C 88 18 158/88 H 96 Room Air 08/21/25 09:42 158/88 H 08/21/25 09:41 Room Air Laboratory Results Short CBC 08/21/25 Range/Units 09:40 WBC 5.08 (4.8-10.8) K/ul Hgb 10.6 L (14.0-18.0) g/dl Hct 33.3 L (42.0-52.0) % Plt Count 158 (130-400) K/uL BMP 08/21/25 09:40 Sodium 139 Potassium 3.9 Chloride 103 Carbon Dioxide 27 BUN 34 H Creatinine 4.73 H* Glucose 149 H Calcium 9.5 Liver Function 08/21/25 Range/Units 09:40 Total Bilirubin 0.6 (0.2-1.0) mg/dl AST 10 L (13-39) U/L ALT 6 L (7-52) U/L Alkaline Phosphatase 75 (34-104) U/L Albumin 3.8 (3.4-5.0) gm/dl Medications Administered Current Inpatient Medications Heparin Sodium (Porcine) (Heparin Sod 5,000 Unit/0.5 Ml Vial) 5,000 units SQ Q12 ALEX Stop: 09/20/25 20:59 Code Status & VTE Plan VTE Prophylaxis Plan VTE Prophylaxis will be ordered: Yes
[2025-08-21] MEDS ORDERED: CALCIUM CARBONATE 500 MG CHEWABLE TAB PO PRN (13:00)
[2025-08-21] MEDS ORDERED: ACETAMINOPHEN 325 MG TAB PO PRN (13:00)
[2025-08-21] MEDS ORDERED: NITROGLYCERIN SL 0.4 MG/TAB TAB SL PRN (13:00)
[2025-08-21] MEDS ORDERED: NON-FORMULARY MEDICATION (Fluticasone-Umeclidin-Vilanter [Trelegy Ellipta] 100-62.5-25 mcg INH SCH (13:00)
[2025-08-21] MEDS ORDERED: ALBUTEROL HFA 8 GM INHALER INH PRN (13:00)
[2025-08-21] MEDS ORDERED: PSYLLIUM HUSK 4GM PACKET PO PRN (13:10)
--- NOTE | 2025-08-21 13:18 | Electrocardiogram Report ---
Test Reason : Blood Pressure : */* mmHG Vent. Rate : 87 BPM Atrial Rate : 87 BPM P-R Int : 208 ms QRS Dur : 158 ms QT Int : 432 ms P-R-T Axes : 28 -38 102 degrees QTcB Int : 519 ms Normal sinus rhythm Left axis deviation Left bundle branch block Abnormal ECG When compared with ECG of 19-Mar-2025 05:10, Left bundle branch block is now Present Confirmed by Carol De La Cruz (Jojo) on 08/21/2025 1:18:26 PM Referred By: Confirmed By: Carol De La Cruz
[2025-08-21] MEDS ORDERED: TROLAMINE SALICYLATE 10% CRM 255 APPLN/85 GM TUBE EXT PRN (13:25)
--- NOTE | 2025-08-21 13:53 | Nephrology Consultation ---
Date of Consultation August 21, 2025 Assessment & Plan (1) ESRD on hemodialysis: Appears euvolemic. electrolytes are normal. next HD tomorrow AM and orders written for 3 hr. CVC seems fine. NO issues reported recently with Dialysis. hgb is good at 10.6. BP is high and will make sure to give all his BP meds. He did not take his home BP meds earlier. wrriten to have amlodipine. Will follow (2) Chest pain: Likely cardiac.trop also rising. has new LBBB. defer to cards and primary team.No plan for emergent intervention Plan time spent 47 mins History of Present Illness Reason for Consultation: ESRD on Dialysis Attending Physician: Rafaela Forbes MD History of Present Illness 85/M with ESRD on HD through [facility] at [facility]--F Under Dr Cowan, chronic HF PEF, CAD status post multiple stents, PVD, history of AAA repair, hypertension hyperlipidemia, history of lung cancer status post surgery and chronic respiratory failure on 2 L of oxygen started complaining of chest pain during breakfast today. No chest pain last night. He felt similar to previous TX. The pain lasted for 15 to 20 minutes and he received sublingual nitro during transportation to the hospital and remained free from any pain in the hospital. He was noted to be SVT in the emergency room and received a dose of adenosine that converted him to sinus rhythm but the EKG revealed to be new left bundle branch block. His initial troponin was mildly elevated at 22. He will be admitted to telemetry unit and the case was discussed with the arts and humanities council director he does not require to be given any heparin at this time. He had dialysis on Friday and his next dialysis will be on Friday. ROS--other than Chest pain 12 Systems reviewed and negative Physical Exam Physical Exam: Constitutional: Awake and Alert accurate normal speech HEENT: Mucous membranes moist. Lungs: Clear to auscultation, decreased, no wheezes rales or rhonchi CV: S1-S2, regular Abdomen: Soft, nontender, nondistended Extremities: No significant edema Neuro: No focal deficits Psych: Cooperative, normal mood Allergies Allergy/AdvReac Type Severity Reaction Status Date / Time Penicillins Allergy Intermediate Rash Verified 04/01/24 11:24 Home Medications Medication Instructions Recorded Confirmed Type allopurinol 100 mg tablet 100 mg PO WK 08/24/21 08/21/25 History cholecalciferol (vitamin D3) 50 50 mcg PO QAM 08/24/21 08/21/25 History mcg (2,000 unit) tablet (Vitamin D3) clopidogrel 75 mg tablet 75 mg PO QAM 08/24/21 08/21/25 History aspirin 81 mg tablet,delayed 81 mg PO 3XWK 01/02/24 08/21/25 History release acetaminophen 325 mg tablet 650 mg PO Q4H PRN Pain/Fever 03/18/25 08/21/25 History (Tylenol) albuterol sulfate 90 mcg/actuation 2 puff inhalation Q6H PRN 03/18/25 08/21/25 History aerosol inhaler Cough/Wheezing bisacodyl 10 mg rectal suppository 10 mg AR Q24H PRN Constipation 03/18/25 08/21/25 History famotidine 10 mg tablet 10 mg PO HS 03/18/25 08/21/25 History fluticasone fur. 100 mcg-umeclid 1 inh inhalation DAILY 03/18/25 08/21/25 His tory 62.5 mcg-vilant 25 mcg inhalat.powder (Trelegy Ellipta) lidocaine HCl 4 %-menthol 1 % 1 applic topical Q8H PRN Pain 03/18/25 08/21/25 History topical cream (Icy Hot Max (lidocaine HCl-menthol)) lutein 25 mg-zeaxanthin 5 mg 1 cap PO 3XWK 03/18/25 08/21/25 History capsule (Ocuvite Blue Light) nitroglycerin 0.4 mg sublingual 0.4 mg sublingual DIRECTED PRN 03/18/25 08/21/25 History tablet Chest Pain ondansetron HCl 4 mg tablet 4 mg PO QAM Give before breakfast 03/18/25 08/21/25 History duzotvlfhaxvp-AV-wtjnuqivtuv 5 10 ml PO Q4H PRN Cough and Cold 03/18/25 08/21/25 History mg-10 mg-100 mg/5 mL oral liquid (Tussin CF Cough-Cold) psyllium husk 3.4 gram/5.4 gram 1 tbsp PO Q24H PRN Constipation 03/18/25 08/21/25 History oral powder (Metamucil) sennosides 8.6 mg-docusate sodium 1 tab-cap PO HS 03/18/25 08/21/25 History 50 mg tablet (Senna Plus) tamsulosin 0.4 mg capsule 0.4 mg PO DAILY 03/18/25 08/21/25 History amlodipine 10 mg tablet 10 mg PO QAM 08/21/25 08/21/25 History calcium carbonate 500 mg PO Q6H PRN Indigestion 08/21/25 08/21/25 History hydrocortisone 2.5 % topical cream 1 applic topical Q6H PRN Rectal 08/21/25 08/21/25 History with perineal applicator Pain/Itchiness (Procto-Med HC) isosorbide mononitrate 60 mg 60 mg PO QAM 08/21/25 08/21/25 History tablet,extended release 24 hr metoprolol succinate 100 mg 100 mg PO HS 08/21/25 08/21/25 History tablet,extended release 24 hr torsemide 40 mg tablet 40 mg PO DAILY 08/21/25 08/21/25 History Patient History Medical History Acute kidney injury superimposed on chronic kidney disease COVID-19 History of GI bleed 07/25/22, pt recently admitted to [facility] for gi bleed. pt "unsure of all the details, but know that I was anemic and had a couple pints of blood." Poor historian Hearing deficit bilat CORREA's Stomach ulcer pt "thinks it's gone now" Arthritis TIA (transient ischemic attack) X 2 "a few years ago was last one" Surgical History History of colonoscopy History of tooth extraction History of tonsillectomy and adenoidectomy H/O heart artery stent X 4 (? DATE-"maybe 5 years ago" "LAST 2 STENTS PLACED AT [facility], OTHER 2 AT [facility] [place]") S/P lobectomy of lung History of left-sided carotid endarterectomy H/O aortic aneurysm repair 2013 AT [facility] Family History Other No family history of adverse response to anesthesia No significant family history Social History Smoking Status: Former smoker Tobacco Type: Cigarettes Second Hand Exposure: No; Do You Dip or Chew Tobacco: No; Hx Alcohol Use: No Hx Substance Use: No Preferred Language: Kosovan Communication Ability: Effective Associate Professor Of Literature Required: No Beliefs That Will Affect Care: None Current Living Situation: Personal Care Facility Current Living Situation Comment: [facility] How many Children do You have: 1 Feels Safe at Home: Yes Safety Concerns: Feels Safe At This Time Assistive Devices: Walker Results & Data Vital Signs (Past 12 Hours) Vital Signs Temp Pulse Pulse Resp BP BP Pulse Ox 08/21/25 13:06 36.5 C 82 18 171/75 H 94 08/21/25 12:20 08/21/25 12:00 77 18 154/81 H 100 08/21/25 12:00 80 17 154/81 H 97 08/21/25 11:30 82 15 142/80 H 100 08/21/25 11:00 84 17 159/92 H 97 08/21/25 10:30 84 19 161/82 H 96 08/21/25 10:18 86 17 97 08/21/25 10:06 72 18 95 08/21/25 10:00 90 16 165/82 H 96 08/21/25 09:50 90 08/21/25 09:44 08/21/25 09:44 36.6 C 88 18 158/88 H 96 08/21/25 09:42 158/88 H 08/21/25 09:41 O2 Del Method 08/21/25 13:06 Room Air 08/21/25 12:20 Room Air 08/21/25 12:00 08/21/25 12:00 Room Air 08/21/25 11:30 08/21/25 11:00 Room Air 08/21/25 10:30 Room Air 08/21/25 10:18 08/21/25 10:06 Room Air 08/21/25 10:00 Room Air 08/21/25 09:50 08/21/25 09:44 Room Air 08/21/25 09:44 Room Air 08/21/25 09:42 08/21/25 09:41 Room Air
[2025-08-21] MEDS: DOCUSATE SODIUM/SENNA 50/8.6MG TAB PO SCH (20:07)
[2025-08-21] MEDS: CLOPIDOGREL BISULFATE 75 MG TAB PO SCH (20:07)
[2025-08-21] MEDS: FAMOTIDINE 20 MG TAB PO SCH (20:15)
[2025-08-21] MEDS: HEPARIN SOD 5,000 UNIT/0.5 ML VIAL SQ SCH (20:15)
[2025-08-21] MEDS: METOPROLOL SUCC 50MG EXT REL TAB PO SCH (20:17)
[2025-08-21] MEDS: MELATONIN 3 MG TAB PO PRN (23:52)
[2025-08-22 06:09] LABS: Hematocrit (blood only) 29.5 % (42.0-52.0); Hemoglobin 9.4 g/dl (14.0-18.0); Immature Granulocytes # (auto) 0.05 K/uL (0.01-0.20); Immature Granulocytes % (auto) 0.9 %; Mean Corpuscular Hemoglobin 32.0 pg (25.0-34.0); Mean Corpuscular Volume 100.3 fL (80.0-100.0); Platelet Count 159 K/uL (130-400); RDW Standard Deviation 57.4 fL (36.4-46.3); Red Blood Count 2.94 M/uL (4.70-6.10); White Blood Count 5.49 K/ul (4.8-10.8)
[2025-08-22] MEDS ORDERED: SODIUM CHLORIDE 0.9% 1,000 ML IV PRN (07:00)
[2025-08-22 07:08] LABS: Anion Gap 8.0 (3-11); Blood Urea Nitrogen 53.0 mg/dl (6-23); Calcium 9.1 mg/dl (8.6-10.3); Carbon Dioxide 25.0 mmol/L (21-32); Chloride 106.0 mmol/L (98-107); Creatinine Clr Calc Pharmacy 8.9 ml/min; Glucose 94.0 mg/dl (70-99(Fasting)); Potassium 4.4 mmol/L (3.5-5.1); Sodium 139.0 mmol/L (136-145)
[2025-08-22] MEDS: ASPIRIN 81 MG ECTAB PO SCH (08:44)
[2025-08-22] MEDS: CHOLECALCIFEROL 25 MCG (1000 UNITS) TAB PO SCH (08:44)
[2025-08-22] MEDS: TAMSULOSIN HCL 0.4 MG CAP PO SCH (08:44)
[2025-08-22] MEDS: UMECLIDINIUM/VILANTEROL 62.5/25MCG 7 PUFFS/INHALER INH SCH (08:45)
[2025-08-22] MEDS: FLUTICASONE FUROATE 100MCG 14 PUFFS/INHALER INH SCH (08:45)
--- NOTE | 2025-08-22 09:17 | Cardiology Consultation ---
Date of Consultation August 22, 2025 Assessment & Plan (1) Chest pain at rest: (2) Elevated troponin: (3) New onset left bundle branch block (LBBB): (4) ASCVD (arteriosclerotic cardiovascular disease): (5) Right coronary artery occlusion: (6) Aortic stenosis: Plan Complex 85-year-old male presenting with resting chest discomfort suspicious for angina. Discomfort resolved in route following administration of sublingual nitroglycerin. Initial rhythm was SVT, returning to sinus following 1 dose of adenosine. EKG with transit left bundle branch block. High-sensitivity troponin elevated as follows: 22.6 -> 37.2 -> 90.9 -> 95.6 pg/mL. EKG obtained this morning revealed sinus rhythm at 72 bpm with a first-degree AV block, LVH, nonspecific STT wave abnormality. Left bundle branch block no longer present. Resting echocardiography pending. Continuous telemetry monitoring benign. Chest x-ray with mild pulmonary vascular congestion, large hiatal hernia. Patient remains chest pain-free since sublingual nitroglycerin administered in route. Options of management discussed with patient including doing nothing, medical management, referral for invasive diagnostic cardiac catheterization. Risks and benefits discussed. Plan at present is to proceed with medical management unless symptoms cannot be controlled adequately. Recommendation/plan * Await resting echocardiography interpretation * Follow troponin to peak * Maintain telemetry * Volume management as per nephrology * Continue dual antiplatelet therapy with aspirin and clopidogrel * Continue beta-jesus therapy with metoprolol succinate 100 mg at bedtime, isosorbide, amlodipine, and atorvastatin * Consider addition of proton pump inhibitor therapy. Supervising Physician Co-Signing Physician Notes Patient seen and examined. Past medical history, surgical history, social history and family history have been reviewed. The medical record and all the above studies have been reviewed. Case DW СЕРГЕЙ including management. Chest Pain Abnormal Troponin - not diagnostic of Type I OH, likely due to demand ischemia HTN - uncontrolled SVT on presentation - apparently responded to adenosine -no tracing available LBBB - transient, new CAD S/P PCI to LAD HFpEF HTN - uncontrolled AAA AOCD Hiatal hernia ECHO 08/22/25 Interpretation Summary Left ventricular systolic function is normal. Left Ventricular Ejection Fraction = 55-60%. Grade I diastolic dysfunction, (abnormal relaxation pattern). Mild pulmonic valvular regurgitation. There is mild mitral regurgitation. Mild valvular aortic stenosis. Mild aortic regurgitation. There is mild tricuspid regurgitation. Right ventricular systolic pressure is normal. correct and f/u electrolytes continue DAPT GDMT for HFpEF as tolerated keeping HR between 60 to 100 BPM and systolic BP between 100-140 mmHg adjust anti-HTN meds keeping systolic BP between 100-140 mmHg keep patient euvolemic maximize antianginals start Ranexa DC Aldactone DVT prophylaxis keep LE elevated when sitting History of Present Illness Reason for Consultation: Chest pain Requesting Physician: [facility] Service, Data Attending Physician: [facility], Dr. Timmy Owens MD History of Present Illness Levi Pérez is a very pleasant 85-year-old male resident of [facility] in [place] who is eating breakfast in the morning of August 21, 2025 when he developed a 7 out of 10 bandlike discomfort across the chest that was associated with diaphoresis and shortness of breath. Discomfort reminiscent of that previously associated with angina. Patient informed nurse, summoning EMS. Sublingual nitroglycerin administered and route with improvement, resolution of discomfort. Initial rhythm on presentation was SVT. Adenosine administered with conversion to sinus. Initial EKG revealed sinus rhythm at 87 bpm with first- degree AV block, left axis deviation, new left bundle branch block, and peaked T waves. High-sensitivity troponin elevated as follows: 22.6 -> 37.2 -> 90.9 -> 95.6 pg/mL. EKG obtained this morning revealed sinus rhythm at 72 bpm with a first-degree AV block, LVH, nonspecific STT wave abnormality. Left bundle branch block no longer present. Resting echocardiography pending. Continuous telemetry monitoring reveals sinus rhythm with heart rates predominantly in the 60-90 bpm range. Patient chest pain-free since nitroglycerin administered in route. No further chest pain since admission. No tachypalpitations. Chronic shortness of breath. Chronic cough. No PND. No increased peripheral edema. No dizziness or lightheadedness. No syncope. No fevers or chills. Urine output is minimal, none yesterday, straight cathed for 500 after IV furosemide administered last night. + Fecal incontinence. Problem List: ASCVD Status post remote PCI of the mid LAD, with in-stent restenosis status post PCI x 2 while on vacation in [place] 100% proximal right chronic total occlusion HFpEF Aortic valve stenosis Peripheral arterial disease History of TIA, status post left carotid endarterectomy AAA s/p repair, with chronic abdominal aneurysm dilatation proximal to the repai r site End-stage renal disease, on hemodialysis via chest catheter, right upper extremity AV fistula Hypertension Dyslipidemia History of lung cancer, left lower lobe lung resection COPD Paraesophageal hiatal hernia Chronic respiratory failure, 2 L/min Chronic anemia Reformed smoker. No significant alcohol. No illegal drug use. Resident of [facility] ([facility]). 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 Allergies Allergy/AdvReac Type Severity Reaction Status Date / Time Penicillins Allergy Intermediate Rash Verified 04/01/24 11:24 Home Medications Medication Instructions Recorded Confirmed Type allopurinol 100 mg tablet 100 mg PO WK 08/24/21 08/21/25 History cholecalciferol (vitamin D3) 50 50 mcg PO QAM 08/24/21 08/21/25 History mcg (2,000 unit) tablet (Vitamin D3) clopidogrel 75 mg tablet 75 mg PO QAM 08/24/21 08/21/25 History aspirin 81 mg tablet,delayed 81 mg PO 3XWK 01/02/24 08/21/25 History release acetaminophen 325 mg tablet 650 mg PO Q4H PRN Pain/Fever 03/18/25 08/21/25 History (Tylenol) albuterol sulfate 90 mcg/actuation 2 puff inhalation Q6H PRN 03/18/25 08/21/25 History aerosol inhaler Cough/Wheezing bisacodyl 10 mg rectal suppository 10 mg ND Q24H PRN Constipation 03/18/25 08/21/25 History famotidine 10 mg tablet 10 mg PO HS 03/18/25 08/21/25 History fluticasone fur. 100 mcg-umeclid 1 inh inhalation DAILY 03/18/25 08/21/25 History 62.5 mcg-vilant 25 mcg inhalat.powder (Trelegy Ellipta) lidocaine HCl 4 %-menthol 1 % 1 applic topical Q8H PRN Pain 03/18/25 08/21/25 History topical cream (Icy Hot Max (lidocaine HCl-menthol)) lutein 25 mg-zeaxanthin 5 mg 1 cap PO 3XWK 03/18/25 08/21/25 History capsule (Ocuvite Blue Light) nitroglycerin 0.4 mg sublingual 0.4 mg sublingual DIRECTED PRN 03/18/25 08/21/25 History tablet Chest Pain ondansetron HCl 4 mg tablet 4 mg PO QAM Give before breakfast 03/18/25 08/21/25 History mbunidbhcatzz-OL-lqwamcikjut 5 10 ml PO Q4H PRN Cough and Cold 03/18/25 08/21/25 History mg-10 mg-100 mg/5 mL oral liquid (Tussin CF Cough-Cold) psyllium husk 3.4 gram/5.4 gram 1 tbsp PO Q24H PRN Constipation 03/18/25 08/21/25 History oral powder (Metamucil) sennosides 8.6 mg-docusate sodium 1 tab-cap PO HS 03/18/25 08/21/25 History 50 mg tablet (Senna Plus) tamsulosin 0.4 mg capsule 0.4 mg PO DAILY 03/18/25 08/21/25 History amlodipine 10 mg tablet 10 mg PO QAM 08/21/25 08/21/25 History calcium carbonate 500 mg PO Q6H PRN Indigestion 08/21/25 08/21/25 History hydrocortisone 2.5 % topical cream 1 applic topical Q6H PRN Rectal 08/21/25 08/21/25 History with perineal applicator Pain/Itchiness (Procto-Med HC) isosorbide mononitrate 60 mg 60 mg PO QAM 08/21/25 08/21/25 History tablet,extended release 24 hr metoprolol succinate 100 mg 100 mg PO HS 08/21/25 08/21/25 History tablet,extended release 24 hr torsemide 40 mg tablet 40 mg PO DAILY 08/21/25 08/21/25 History Patient History Medical History Acute kidney injury superimposed on chronic kidney disease COVID-19 History of GI bleed 07/25/22, pt recently admitted to [facility] for gi bleed. pt "unsure of all the d etails, but know that I was anemic and had a couple pints of blood." Poor historian Hearing deficit bilat CORREA's Stomach ulcer pt "thinks it's gone now" Arthritis TIA (transient ischemic attack) X 2 "a few years ago was last one" Surgical History History of colonoscopy History of tooth extraction History of tonsillectomy and adenoidectomy H/O heart artery stent X 4 (? DATE-"maybe 5 years ago" "LAST 2 STENTS PLACED AT [facility], OTHER 2 AT [facility]") S/P lobectomy of lung History of left-sided carotid endarterectomy H/O aortic aneurysm repair 2014 AT [facility] Family History Other No family history of adverse response to anesthesia No significant family history Social History Smoking Status: Former smoker Tobacco Type: Cigarettes Second Hand Exposure: No; Do You Dip or Chew Tobacco: No; Hx Alcohol Use: No Hx Substance Use: No Preferred Language: Israeli Communication Ability: Effective Watch Dial Maker Required: No Beliefs That Will Affect Care: None Current Living Situation: Personal Care Facility Current Living Situation Comment: [facility] How many Children do You have: 1 Feels Safe at Home: Yes Safety Concerns: Feels Safe At This Time Assistive Devices: Walker Review of Systems Review of Systems: Complete Review of Systems is as stated above, negative, or noncontributory Physical Exam Physical Exam: General: A&Ox3. NAD. Hard of hearing HENT: Normocephalic. Atraumatic. Eyes: PER. Conjunctiva pink, sclera clear. Neck: Bilateral carotid bruits. JVD. Heart: RRR. Grade III/ systolic ejection murmur. No diastolic murmur. Chest: Hemodialysis catheter on the right Lungs: Clear to auscultation. Abdomen: +BS. Soft. Nontender. No masses or organomegaly. Extremities: Right upper extremity AV fistula. Right dorsalis pedis pulse 1/4. No left lower extremity pulses appreciated. Mild edema. No cyanosis. Limited neurological examination is without focal deficits. Results & Data Vital Signs (Past 12 Hours) Vital Signs Temp Pulse Resp BP Pulse Ox O2 Del Method 08/22/25 07:46 36.4 C L 70 18 157/76 H 95 Room Air 08/22/25 05:04 37.1 C 76 18 159/76 H 94 Room Air 08/22/25 00:00 36.7 C 76 17 145/60 H 92 Room Air Laboratory Results Cardiac Enzymes 08/21/25 08/21/25 08/21/25 Range/Units 11:22 16:58 23:27 Troponin I High Sens 37.2 H D 90.9 H* D 95.6 H* (0-20) pg/ml CBC 08/22/25 Range/Units 05:26 WBC 5.49 (4.8-10.8) K/ul RBC 2.94 L (4.70-6.10) M/uL Hgb 9.4 L (14.0-18.0) g/dl Hct 29.5 L (42.0-52.0) % Plt Count 159 (130-400) K/uL Neut # (Auto) 3.53 (1.40-6.50) K/uL Lymph # (Auto) 0.82 L (1.20-3.40) K/uL [place] # (Auto) 0.53 (0.11-0.59) K/uL Eos # (Auto) 0.52 H (0.00-0.50) K/uL Baso # (Auto) 0.04 (0.00-0.20) K/uL Comprehensive Metabolic Panel 08/22/25 Range/Units 05:26 Sodium 139 (136-145) mmol/L Potassium 4.4 (3.5-5.1) mmol/L Chloride 106 (98-107) mmol/L Carbon Dioxide 25 (21-32) mmol/L BUN 53 H (6-23) mg/dl Creatinine 5.56 H* D (0.6-1.4) mg/dl Glucose 94 (70-99(Fasting)) mg/dl Calcium 9.1 (8.6-10.3) mg/dl Intake and Output 08/21/25 08/22/25 08/22/25 22:59 06:59 14:59 Output Total 600 / 600 Balance -600 / -540 - Output: Urine Urine Amount (Catheter) 600 / 600 Straight 600 / 600 Other: Weight 76.5 kg Weight Measurement Method Built in [facility] Patient Weight 08/23/25 06:59 Weight 76.5 kg PG Care Time/CCT Total # of Minutes Spent Total Time Spent with Patient: Total time spent is greater than 50% in coordination of care (as documented) at patient's floor/unit and/or counseling patient.I spent a total of 75 minutes on the date of service in preparation, delivery, and documentation of the care p rovided to this patient excluding any time spent in the performance of separately billed services. This visit was a split-shared visit with the substantive portion of the medical decision making performed by the supervising cable way operator/billing provider. Coding Level of Care Code 05599 IN/OBS CONSULT LVL 5,80M Diagnoses Chest pain at rest R07.9 Elevated troponin R77.8 New onset left bundle branch block (LBBB) I44.7 ASCVD (arteriosclerotic cardiovascular disease) I25.10 Right coronary artery occlusion I24.0 Aortic stenosis I35.0
--- NOTE | 2025-08-22 10:39 | Electrocardiogram Report ---
Test Reason : Blood Pressure : */* mmHG Vent. Rate : 72 BPM Atrial Rate : 72 BPM P-R Int : 238 ms QRS Dur : 86 ms QT Int : 414 ms P-R-T Axes : 35 19 7 degrees QTcB Int : 453 ms Sinus rhythm with 1st degree A-V block Minimal voltage criteria for LVH, may be normal variant Nonspecific ST and T wave abnormality Abnormal ECG When compared with ECG of 21-Aug-2025 09:41, LA interval has increased Left bundle branch block is no longer Present Confirmed by Adam Rubi ([id number]) on 08/22/2025 10:38:37 AM Referred By: REFERRED SELF Confirmed By: Adam Rubi
[2025-08-22] MEDS: SPIRONOLACTONE 12.5 MG TAB PO SCH (13:22)
[2025-08-22] MEDS: ISOSORBIDE MONO EXTENDED REL 30 MG TABCR PO SCH (13:22)
[2025-08-22] MEDS: TORSEMIDE 20 MG TAB PO SCH (13:22)
--- NOTE | 2025-08-22 14:05 | Hospitalist Progress Note ---
Date of Service August 22, 2025 Assessment & Plan (1) Chest pain: Plan: Chest pain Possible angina SVT on presentation resolved with a dose of adenosine Chronic troponin elevation in setting of renal insufficiency --H/O CAD S/P stent to LAD and right coronary artery --ECHO pending --CXR:Interval placement of a dual-lumen right sided central venous catheter with tip at the superior cavoatrial junction. No pneumothorax. Cardiomegaly with pulmonary vascular congestion suggesting CHF. Stable small left pleural effusion. Large hiatal hernia. -- Check lipid panel, A1c Patient preferred medical management Continue dual antiplatelet therapy with aspirin, Plavix Continue metoprolol, isosorbide, atorvastatin, amlodipine Added PPI Appreciate cardiology input (2) CAD (coronary atherosclerotic disease): Plan: as above (3) Chronic heart failure with preserved ejection fraction: Plan: History of chronic heart failure with preserved EF Latest echo on 03/18/2025 and showed moderate concentric LVH, LV wall motion is normal, LV systolic function is normal, LVEF was 55 to 60%, RV was normal in siz e and function, aortic valve is calcified to moderate to severe degree, moderate valvular aortic stenosis, there is mild mitral regurgitation and mild tricuspid regurgitation and pulmonary artery systolic pressure estimated to be 41 mmHg -- Update echo pending Chest x-ray as above Volume status managed through dialysis Also on torsemide, Aldactone Monitor I's and O's, daily weight, volume status (4) Hypertension, uncontrolled: Plan: BP variable Continue home medications amlodipine, hydralazine, metoprolol Monitor blood pressure (5) Chronic hypoxic respiratory failure, on home oxygen therapy: Plan: Currently saturating well on room (6) ESRD on hemodialysis: Plan: Continue dialysis per nephrology Appreciate nephrology input he has been on dialysis now (7) AAA (abdominal aortic aneurysm): Plan: Follow-up as outpatient (8) Hx of cancer of lung: Plan: Follow-up as outpatient (9) Anemia, chronic renal failure: Plan: Hemoglobin at baseline Monitor Large hiatal hernia Started on PPI DVT prophylaxis Heparin SQ CODE STATUS Full Code Admission and Anticipated Discharge Date Admission Date: August 21, 2025 Subjective Patient is seen and examined at bedside Was having hemodialysis during my encounter this morning Chest pain resolved Offers no other complaints today Denies any dyspnea, nausea, vomiting, abdominal pain, dizziness Review of Systems Review of Systems: All systems reviewed & are unremarkable except as noted in Subjective Physical Exam Physical Exam: Physical Exam: Vitals signs as noted above General Appearance:Moderately built and nourished, no apparent distress, chronic ill appearing Head: normocephalic, Atraumatic Eyes: normal inspection, EOMI Neck: supple, Trachea midline Respiratory/Chest: Normal breath sounds, CTA, No accessory muscle use Cardiovascular: S1, S2, + murmur Abdomen/GI:Soft, Non tender, Bowel sounds present Extremities/Musculoskeletal:normal inspection, no edema Neurologic/Psych:AAOX3, grossly no focal neurological deficits Skin: normal color, warm Results & Data Results & Data Vital Signs (Past 12 Hours) Vital Signs Temp Pulse Pulse Pulse Resp BP BP 08/22/25 13:09 36.8 C 81 18 189/79 H 08/22/25 12:55 37.0 C 74 175/84 H 08/22/25 12:27 82 178/86 H 08/22/25 12:00 81 172/80 H 08/22/25 11:30 81 165/80 H 08/22/25 11:00 77 168/75 H 08/22/25 10:30 78 164/79 H 08/22/25 10:00 78 136/72 08/22/25 09:30 75 175/81 H 08/22/25 09:22 72 163/75 H 08/22/25 09:18 35.6 C L 74 08/22/25 08:00 71 08/22/25 07:46 36.4 C L 70 18 157/76 H 08/22/25 05:04 37.1 C 76 18 159/76 H Pulse Ox O2 Del Method 08/22/25 13:09 95 Room Air 08/22/25 12:55 08/22/25 12:27 08/22/25 12:00 08/22/25 11:30 08/22/25 11:00 08/22/25 10:30 08/22/25 10:00 08/22/25 09:30 08/22/25 09:22 08/22/25 09:18 08/22/25 08:00 08/22/25 07:46 95 Room Air 08/22/25 05:04 94 Room Air Laboratory Results Short CBC 08/22/25 Range/Units 05:26 WBC 5.49 (4.8-10.8) K/ul Hgb 9.4 L (14.0-18.0) g/dl Hct 29.5 L (42.0-52.0) % Plt Count 159 (130-400) K/uL [facility] 08/22/25 05:26 Sodium 139 Potassium 4.4 Chloride 106 Carbon Dioxide 25 BUN 53 H Creatinine 5.56 H* D Glucose 94 Calcium 9.1
--- NOTE | 2025-08-22 14:37 | XCELERA ---
[id number] \\[id number]
--- NOTE | 2025-08-22 19:49 | Dialysis Progress Note ---
Date of Service August 22, 2025 Assessment & Plan (1) ESRD on hemodialysis: Plan: Appears euvolemic. electrolytes are normal. next HD after today would be for 08/24 as IP/OP CVC seems fine. NO issues reported recently with Dialysis. AVF having issues hgb is good at 9.4 higher BP have resolved/improved (2) Chest pain: Plan: Likely cardiac.trop also rising. has new LBBB. defer to cards and primary team who are following closely .No plan for emergent intervention Plan time spent 47 mins Admission and Anticipated Discharge Date Admission Date: August 21, 2025 Subjective no further chest pain; no n/v, no sob; seen and evaluated on HD Review of Systems 2 Review of Systems: All systems reviewed & are unremarkable except as noted in Subjective Physical Exam 2 Constitutional: well developed, well nourished and cooperative; no acute distress Eyes: EOM intact bilaterally ENMT: Ears: no external ear abnormality Nose: no external nose abnormality Mouth: + dry oral mucous membranes Neck: no nuchal rigidity Respiratory: normal respiratory effort Auscultation: + diminished lung sounds Cardiovascular: RRR, no murmur, no edema Gastrointestinal (Abdomen): Inspection/Auscultation: normal bowel sounds P ercussion/Palpation: abdomen soft; abdomen nontender Musculoskeletal: Extremities: strength 5/5 throughout Skin: no rashes, warm and dry Neurologic: larson, fluent speech, no tremor Results & Data Vital Signs (Past 12 Hours) Vital Signs Temp Pulse Pulse Pulse Resp BP BP 08/22/25 15:40 36.5 C 84 18 126/69 08/22/25 14:00 86 08/22/25 13:09 36.8 C 81 18 189/79 H 08/22/25 12:55 37.0 C 74 175/84 H 08/22/25 12:27 82 178/86 H 08/22/25 12:00 81 172/80 H 08/22/25 11:30 81 165/80 H 08/22/25 11:00 77 168/75 H 08/22/25 10:30 78 164/79 H 08/22/25 10:00 78 136/72 08/22/25 09:30 75 175/81 H 08/22/25 09:22 72 163/75 H 08/22/25 09:18 35.6 C L 74 08/22/25 08:00 71 Pulse Ox O2 Del Method 08/22/25 15:40 94 Room Air 08/22/25 14:00 08/22/25 13:09 95 Room Air 08/22/25 12:55 08/22/25 12:27 08/22/25 12:00 08/22/25 11:30 08/22/25 11:00 08/22/25 10:30 08/22/25 10:00 08/22/25 09:30 08/22/25 09:22 08/22/25 09:18 08/22/25 08:00 Laboratory Results 08/22/25 05:26 08/22/25 05:26
[2025-08-22] MEDS: ATORVASTATIN 10 MG TAB PO SCH (20:14)
[2025-08-22] MEDS: RANOLAZINE 500 MG ER TAB PO SCH (20:15)
[2025-08-22] MEDS: CEROVITE ADV FORMULA TAB PO SCH (20:16)
[2025-08-23 06:25] LABS: Hematocrit (blood only) 29.4 % (42.0-52.0); Hemoglobin 9.9 g/dl (14.0-18.0); Mean Corpuscular Hemoglobin 33.3 pg (25.0-34.0); Mean Corpuscular Volume 99.0 fL (80.0-100.0); Platelet Count 166 K/uL (130-400); RDW Standard Deviation 58.5 fL (36.4-46.3); Red Blood Count 2.97 M/uL (4.70-6.10); White Blood Count 5.70 K/ul (4.8-10.8)
[2025-08-23 07:16] LABS: Anion Gap 7.0 (3-11); Blood Urea Nitrogen 31.0 mg/dl (6-23); Calcium 9.2 mg/dl (8.6-10.3); Carbon Dioxide 28.0 mmol/L (21-32); Chloride 104.0 mmol/L (98-107); Cholesterol 150.0 mg/dl (0-200); Creatinine Clr Calc Pharmacy 12.1 ml/min; Glucose 94.0 mg/dl (70-99(Fasting)); HDL Cholesterol 39.0 mg/dl; Potassium 3.8 mmol/L (3.5-5.1); Sodium 139.0 mmol/L (136-145); Triglycerides 119.0 mg/dl (0-150)
[2025-08-23 07:39] LABS: Hemoglobin A1C 5.8 % (4.5-5.6)
--- NOTE | 2025-08-23 15:26 | Hospitalist Progress Note ---
Date of Service August 23, 2025 Assessment & Plan (1) Chest pain: Plan: Chest pain Possible angina SVT on presentation resolved with a dose of adenosine Chronic troponin elevation in setting of renal insufficiency --H/O CAD S/P stent to LAD and right coronary artery --ECHO: EF 55 to 60%. Grade 1 diastolic dysfunction. Mild pulmonic valve regurgitation. Mild mitral regurgitation. Mild valvular aortic stenosis. Mild aortic regurgitation. Mild tricuspid regurgitation. Right ventricular systolic pressure is normal. --CXR:Interval placement of a dual-lumen right sided central venous catheter with tip at the superior cavoatrial junction. No pneumothorax. Cardiomegaly with pulmonary vascular congestion suggesting CHF. Stable small left pleural effusion. Large hiatal hernia. -- lipid panel: Within normal limits -- A1c: 5.8 Patient preferred medical management Continue dual antiplatelet therapy with aspirin, Plavix Continue metoprolol, isosorbide, atorvastatin, amlodipine Added PPI Isosorbide increased to 90 mg daily Added Ranexa finder milligrams twice a day Appreciate cardiology input Plan to discharge to rehab facility/personal care likely in next 24 to 48 hours Urinary retention ? Secondary to BPH Continue home Flomax Continue Albert catheter for now Needs follow-up with urology as outpatient Voiding trial as outpatient (2) CAD (coronary atherosclerotic disease): Plan: as above (3) Chronic heart failure with preserved ejection fraction: Plan: History of chronic heart failure with preserved EF Latest echo on 03/18/2025 and showed moderate concentric LVH, LV wall motion is normal, LV systolic function is normal, LVEF was 55 to 60%, RV was normal in size and function, aortic valve is calcified to moderate to severe degree, moderate valvular aortic stenosis, there is mild mitral regurgitation and mild tricuspid regurgitation and pulmonary artery systolic pressure estimated to be 41 mmHg --echo as above Chest x-ray as above Volume status managed through dialysis Also on torsemide Aldactone discontinued as per cardiology Monitor I's and O's, daily weight, volume status (4) Hypertension, uncontrolled: Plan: BP variable Continue home medications amlodipine, hydralazine, metoprolol Monitor blood pressure (5) Chronic hypoxic respiratory failure, on home oxygen therapy: Plan: Currently saturating well on room (6) ESRD on hemodialysis: Plan: Continue dialysis per nephrology Appreciate nephrology input he has been on dialysis now (7) AAA (abdominal aortic aneurysm): Plan: Follow-up as outpatient (8) Hx of cancer of lung: Plan: Follow-up as outpatient (9) Anemia, chronic renal failure: Plan: Hemoglobin at baseline Monitor Large hiatal hernia Started on PPI DVT prophylaxis Heparin SQ CODE STATUS Full Code Disposition PT OT prior to discharge Admission and Anticipated Discharge Date Admission Date: August 21, 2025 Subjective Patient is seen and examined at bedside Reports having trouble urinating Bladder scan showed urinary retention No other complaints today No recurrence of chest pain Denies any dyspnea, nausea, vomiting, abdominal pain, dizziness Review of Systems Review of Systems: All systems reviewed & are unremarkable except as noted in Subjective Physical Exam Physical Exam: Physical Exam: Vitals signs as noted above General Appearance:Moderately built and nourished, no apparent distress, chronic ill appearing Head: normocephalic, Atraumatic Eyes: normal inspection, EOMI Neck: supple, Trachea midline Respiratory/Chest: Normal breath sounds, CTA, No accessory muscle use Cardiovascular: S1, S2, + murmur Abdomen/GI:Soft, Non tender, Bowel sounds present Extremities/Musculoskeletal:normal inspection, no edema Neurologic/Psych:AAOX3, grossly no focal neurological deficits Skin: normal color, warm Results & Data Results & Data Vital Signs (Past 12 Hours) Vital Signs Temp Pulse Pulse Pulse Resp BP Pulse Ox 08/23/25 13:30 82 08/23/25 11:14 36.4 C L 80 18 153/78 H 95 08/23/25 08:00 72 08/23/25 07:56 36.5 C 77 18 149/66 H 92 08/23/25 04:25 36.5 C 67 18 129/69 93 O2 Del Method 08/23/25 13:30 08/23/25 11:14 Room Air 08/23/25 08:00 08/23/25 07:56 Room Air 08/23/25 04:25 Room Air Laboratory Results Short CBC 08/23/25 Range/Units 05:35 WBC 5.70 (4.8-10.8) K/ul Hgb 9.9 L (14.0-18.0) g/dl Hct 29.4 L (42.0-52.0) % Plt Count 166 (130-400) K/uL BMP 08/23/25 05:35 Sodium 139 Potassium 3.8 Chloride 104 Carbon Dioxide 28 BUN 31 H D Creatinine 4.09 H D Glucose 94 Calcium 9.2
[2025-08-23] MEDS ORDERED: SODIUM CHLORIDE 0.9% 1,000 ML IV PRN (17:22)
--- NOTE | 2025-08-23 17:23 | Nephrology Progress Note ---
Date of Service August 23, 2025 Assessment & Plan (1) ESRD on hemodialysis: Plan: Appears euvolemic. electrolytes are normal. next HD after today would be for 08/24 as IP w/ goal UF up to 2 L on 3K bath for K 3.8 CVC seems fine. NO issues reported recently with Dialysis. AVF having issues w/ cannulation hgb is acceptable at 9.9 > orders in for NILSA on tx tomorrow higher BP have resolved/improved Care coordinated w/ Dr geri muñoz TText regarding d/c dispo, indication/care plan for liu, dialysis timing; we are in agreement. (2) Chest pain: Plan: Likely cardiac.trop also rising. has new LBBB. defer to cards and primary team who are following closely .No plan for emergent intervention (3) Urinary retention: Plan: w/ liu. follows w/ Dr Lewis [facility] urology as OP Plan time spent 47 mins Admission and Anticipated Discharge Date Admission Date: August 21, 2025 Subjective no acute interval events clinically. waiting on PT eval. some phlegm > working to mobilize. no sob, no further chest pain. had urineary retention adn liu placed Review of Systems 2 Review of Systems: All systems reviewed & are unremarkable except as noted in Subjective Physical Exam 2 Constitutional: well developed, well nourished and cooperative; no acute distress Eyes: EOM intact bilaterally ENMT: Mouth: + dry oral mucous membranes Neck: no nuchal rigidity Respiratory: normal respiratory effort Auscultation: + diminished lung sounds Cardiovascular: RRR, no murmur, no edema Gastrointestinal (Abdomen): Inspection/Auscultation: normal bowel sounds P ercussion/Palpation: abdomen soft; abdomen nontender Musculoskeletal: Extremities: strength 5/5 throughout Skin: no rashes, warm and dry Results & Data Vital Signs (Past 12 Hours) Vital Signs Temp Pulse Pulse Pulse Resp BP Pulse Ox 08/23/25 15:50 36.5 C 80 18 129/72 96 08/23/25 13:30 82 08/23/25 11:14 36.4 C L 80 18 153/78 H 95 08/23/25 08:00 72 08/23/25 07:56 36.5 C 77 18 149/66 H 92 O2 Del Method 08/23/25 15:50 Room Air 08/23/25 13:30 08/23/25 11:14 Room Air 08/23/25 08:00 08/23/25 07:56 Room Air Laboratory Results 08/23/25 05:35 08/23/25 05:35
--- NOTE | 2025-08-23 18:01 | Cardiology Progress Note ---
Date of Service August 23, 2025 Assessment & Plan (1) Chest pain at rest: (2) Elevated troponin: (3) New onset left bundle branch block (LBBB): (4) ASCVD (arteriosclerotic cardiovascular disease): (5) Right coronary artery occlusion: (6) Aortic stenosis: Plan Complex 85-year-old male presenting with resting chest discomfort suspicious for angina. Discomfort resolved in route following administration of sublingual nitroglycerin. Initial rhythm was SVT, returning to sinus following 1 dose of adenosine. EKG with transit left bundle branch block. High-sensitivity troponin elevated as follows: 22.6 -> 37.2 -> 90.9 -> 95.6 pg/mL. EKG obtained this morning revealed sinus rhythm at 72 bpm with a first-degree AV block, LVH, nonspecific STT wave abnormality. Left bundle branch block no longer present. Resting echocardiography pending. Continuous telemetry monitoring benign. Chest x-ray with mild pulmonary vascular congestion, large hiatal hernia. Patient remains chest pain-free since sublingual nitroglycerin administered in route. Options of management discussed with patient including doing nothing, medical management, referral for invasive diagnostic cardiac catheterization. Risks and benefits discussed. Plan at present is to proceed with medical management unless symptoms cannot be controlled adequately. Chest Pain Abnormal Troponin - not diagnostic of Type I DC, likely due to demand ischemia HTN - uncontrolled SVT on presentation - apparently responded to adenosine -no tracing available LBBB - transient, new CAD S/P PCI to LAD HFpEF HTN - uncontrolled - better, stable AAA AOCD Hiatal hernia correct and f/u electrolytes continue DAPT GDMT for HFpEF as tolerated keeping HR between 60 to 100 BPM and systolic BP between 100-140 mmHg adjust anti-HTN meds keeping systolic BP between 100-140 mmHg keep patient euvolemic maximize antianginals cont Ranexa off Aldactone DVT prophylaxis keep LE elevated when sitting stable from cardiac standpoint for discharge Admission and Anticipated Discharge Date Admission Date: August 21, 2025 Subjective Patient on exam is lying in bed in NAD; no c/o cp, sob, palpitations, dizziness, LOC; had HD yesterday; has remained CP free Review of Systems Review of Systems: Complete Review of Systems is as stated above, negative, or noncontributory Physical Exam Physical Exam: General: A&Ox3. NAD. Hard of hearing HENT: Normocephalic. Atraumatic. Eyes:Conjunctiva pink, sclera clear. Neck: Bilateral carotid bruits. JVD. Heart: SIS2 Grade III/ systolic ejection murmur. No diastolic murmur. Chest: Hemodialysis catheter on the right Lungs: no rales, no wheezing Abdomen: +BS. Soft. Nontender. No masses or organomegaly. Extremities: Right upper extremity AV fistula. Right dorsalis pedis pulse 1/4. No left lower extremity pulses appreciated. Mild edema. No cyanosis. Limited neurological examination - no focal deficits. Results & Data Vital Signs (Past 12 Hours) Vital Signs Temp 36.5 C 08/23/25 15:50 Pulse 80 08/23/25 15:50 Resp 18 08/23/25 15:50 BP 129/72 08/23/25 15:50 Pulse Ox 96 08/23/25 15:50 O2 Del Method Room Air 08/23/25 15:50 Intake & Output 08/22/25 08/23/25 08/23/25 18:59 06:59 18:59 Intake Total 240 / 340 100 / 340 320 / 320 Output Total 375 / 375 Balance -135 / -35 100 / -35 320 / 320 Weight 76.5 kg Intake: Oral 240 / 340 100 / 340 320 / 320 Output: Urine / Urine Amount (Catheter) 350 / 350 Straight 350 / 350 Other: Hemodialysis Ultrafiltration 1,500 Amount Other Intake Source sips Weight Measurement Method Built in [facility] Vital Signs Temp Pulse Pulse Pulse Resp BP Pulse Ox 08/23/25 15:50 36.5 C 80 18 129/72 96 08/23/25 13:30 82 08/23/25 11:14 36.4 C L 80 18 153/78 H 95 08/23/25 08:00 72 08/23/25 07:56 36.5 C 77 18 149/66 H 92 O2 Del Method 08/23/25 15:50 Room Air 08/23/25 13:30 08/23/25 11:14 Room Air 08/23/25 08:00 08/23/25 07:56 Room Air Laboratory Results Laboratory Results - last 48 hr 08/21/25 08/21/25 08/22/25 16:58 23:27 05:26 WBC 5.49 RBC 2.94 L Hgb 9.4 L Hct 29.5 L MCV 100.3 H MCH 32.0 MCHC 31.9 L RDW Std Deviation 57.4 H RDW Coeff of Serene 16.4 H Plt Count 159 MPV 9.4 Immature Gran % (Auto) 0.9 Neut % (Auto) 64.3 Lymph % (Auto) 14.9 [place] % (Auto) 9.7 Eos % (Auto) 9.5 Baso % (Auto) 0.7 Neut # (Auto) 3.53 Lymph # (Auto) 0.82 L [place] # (Auto) 0.53 Eos # (Auto) 0.52 H Baso # (Auto) 0.04 Immature Gran # (Auto) 0.05 Sodium 139 Potassium 4.4 Chloride 106 Carbon Dioxide 25 Anion Gap 8 BUN 53 H Creatinine 5.56 H* D Est Cr Clr Drug Dosing 8.9 eGFR 9.35 BUN/Creatinine Ratio 9.5 L Glucose 94 Estimat Average Glucose Hemoglobin A1c Calcium 9.1 Troponin I High Sens 90.9 H* D 95.6 H* Triglycerides Cholesterol LDL Cholesterol, Calc VLDL Cholesterol, Calc HDL Cholesterol Cholesterol/HDL Ratio 08/23/25 05:35 WBC 5.70 RBC 2.97 L Hgb 9.9 L Hct 29.4 L MCV 99.0 MCH 33.3 MCHC 33.7 RDW Std Deviation 58.5 H RDW Coeff of Serene 16.5 H Plt Count 166 MPV 9.9 Immature Gran % (Auto) Neut % (Auto) Lymph % (Auto) [place] % (Auto) Eos % (Auto) Baso % (Auto) Neut # (Auto) Lymph # (Auto) [place] # (Auto) Eos # (Auto) Baso # (Auto) Immature Gran # (Auto) Sodium 139 Potassium 3.8 Chloride 104 Carbon Dioxide 28 Anion Gap 7 BUN 31 H D Creatinine 4.09 H D Est Cr Clr Drug Dosing 12.1 eGFR 13.52 BUN/Creatinine Ratio 7.6 L Glucose 94 Estimat Average Glucose 120 Hemoglobin A1c 5.8 H Calcium 9.2 Troponin I High Sens Triglycerides 119 Cholesterol 150 LDL Cholesterol, Calc 87 VLDL Cholesterol, Calc 24 HDL Cholesterol 39 Cholesterol/HDL Ratio 3.8 Diagnostic Findings Laboratory Results WBC 5.70 K/ul (4.8-10.8) 08/23/25 05:35 RBC 2.97 M/uL (4.70-6.10) L 08/23/25 05:35 Hgb 9.9 g/dl (14.0-18.0) L 08/23/25 05:35 Hct 29.4 % (42.0-52.0) L 08/23/25 05:35 MCV 99.0 fL (80.0-100.0) 08/23/25 05:35 MCH 33.3 pg (25.0-34.0) 08/23/25 05:35 MCHC 33.7 g/dL (32.0-36.0) 08/23/25 05:35 RDW Std Deviation 58.5 fL (36.4-46.3) H 08/23/25 05:35 RDW Coeff of Serene 16.5 % (11.5-14.5) H 08/23/25 05:35 Plt Count 166 K/uL (130-400) 08/23/25 05:35 MPV 9.9 fL (9.4-12.4) 08/23/25 05:35 Immature Gran % (Auto) 0.9 % 08/22/25 05:26 Neut % (Auto) 64.3 % 08/22/25 05:26 Lymph % (Auto) 14.9 % 08/22/25 05:26 [place] % (Auto) 9.7 % 08/22/25 05:26 Eos % (Auto) 9.5 % 08/22/25 05:26 Baso % (Auto) 0.7 % 08/22/25 05:26 Neut # (Auto) 3.53 K/uL (1.40-6.50) 08/22/25 05:26 Lymph # (Auto) 0.82 K/uL (1.20-3.40) L 08/22/25 05:26 [place] # (Auto) 0.53 K/uL (0.11-0.59) 08/22/25 05:26 Eos # (Auto) 0.52 K/uL (0.00-0.50) H 08/22/25 05:26 Baso # (Auto) 0.04 K/uL (0.00-0.20) 08/22/25 05:26 Immature Gran # (Auto) 0.05 K/uL (0.01-0.20) 08/22/25 05:26 PT 10.9 Seconds (9.0-12.0) 08/21/25 09:40 INR 1.0 (0.9-1.1) 08/21/25 09:40 APTT 29 Seconds (21-31) 08/21/25 09:40 PTT Ratio 1.1 08/21/25 09:40 VBG pH 7.41 (7.36-7.41) 08/21/25 09:51 VBG pCO2 40 mmHg (38-50) 08/21/25 09:51 VBG pO2 53 mmHg 08/21/25 09:51 VBG HCO3 25 mmol/L 08/21/25 09:51 VBG O2 Saturation 84.0 % 08/21/25 09:51 VBG Base Excess 0.7 mEq/L 08/21/25 09:51 Sodium 139 mmol/L (136-145) 08/23/25 05:35 Potassium 3.8 mmol/L (3.5-5.1) 08/23/25 05:35 Chloride 104 mmol/L (98-107) 08/23/25 05:35 Carbon Dioxide 28 mmol/L (21-32) 08/23/25 05:35 Anion Gap 7 (3-11) 08/23/25 05:35 BUN 31 mg/dl (6-23) H D 08/23/25 05:35 Creatinine 4.09 mg/dl (0.6-1.4) H D 08/23/25 05:35 Est Cr Clr Drug Dosing 12.1 ml/min 08/23/25 05:35 eGFR 13.52 08/23/25 05:35 BUN/Creatinine Ratio 7.6 (10-20) L 08/23/25 05:35 Glucose 94 mg/dl (70-99(Fasting)) 08/23/25 05:35 Estimat Average Glucose 120 mg/dl 08/23/25 05:35 Hemoglobin A1c 5.8 % (4.5-5.6) H 08/23/25 05:35 Calcium 9.2 mg/dl (8.6-10.3) 08/23/25 05:35 Phosphorus 3.9 mg/dl (2.5-4.9) 08/21/25 09:40 Magnesium 2.3 mg/dl (1.7-2.4) 08/21/25 09:40 Total Bilirubin 0.6 mg/dl (0.2-1.0) 08/21/25 09:40 AST 10 U/L (13-39) L 08/21/25 09:40 ALT 6 U/L (7-52) L 08/21/25 09:40 Alkaline Phosphatase 75 U/L (34-104) 08/21/25 09:40 Troponin I High Sens 95.6 pg/ml (0-20) H* 08/21/25 23:27 Total Protein 7.3 gm/dl (6.0-8.3) 08/21/25 09:40 Albumin 3.8 gm/dl (3.4-5.0) 08/21/25 09:40 Globulin 3.5 gm/dl (2.5-4.0) 08/21/25 09:40 Albumin/Globulin Ratio 1.1 (0.9-2) 08/21/25 09:40 Triglycerides 119 mg/dl (0-150) 08/23/25 05:35 Cholesterol 150 mg/dl (0-200) 08/23/25 05:35 LDL Cholesterol, Calc 87 mg/dl 08/23/25 05:35 VLDL Cholesterol, Calc 24 mg/dl (0-30) 08/23/25 05:35 HDL Cholesterol 39 mg/dl 08/23/25 05:35 Cholesterol/HDL Ratio 3.8 (0-5) 08/23/25 05:35 Lipase 20 U/L (11-82) 08/21/25 09:40 Nasal Screen MRSA (PCR) Negative (Negative) 08/21/25 15:47 Impressions Chest X-Ray 08/21/25 09:38 HISTORY: Chest pain. TECHNIQUE: Portable AP radiograph of the chest. COMPARISON: Chest radiograph dated 03/18/2025. FINDINGS: Dual-lumen right central venous catheter with tip at the superior cavoatrial junction. Mild vascular congestion and increased interstitial markings are similar to the prior study. Small left pleural effusion. No pneumothorax. No new focal consolidation. Mild cardiomegaly. Hiatal hernia. Left-sided aortic arch. Surgical clips projecting over the left hilum. Midline trachea. No acute osseous abnormality. IMPRESSION: * Interval placement of a dual-lumen right sided central venous catheter with tip at the superior cavoatrial junction. No pneumothorax. * Cardiomegaly with pulmonary vascular congestion suggesting CHF. Stable small left pleural effusion. * Large hiatal hernia. Electronically signed by Ciro Mcguire 08-21-2025 10:08 AM ECHO 08/22/25 Interpretation Summary Left ventricular systolic function is normal. Left Ventricular Ejection Fraction = 55-60%. Grade I diastolic dysfunction, (abnormal relaxation pattern). Mild pulmonic valvular regurgitation. There is mild mitral regurgitation. Mild valvular aortic stenosis. Mild aortic regurgitation. There is mild tricuspid regurgitation. Right ventricular systolic pressure is normal. Medications Administered Home Medications Medication Instructions Recorded Confirmed Last Taken allopurinol 100 mg tablet 100 mg PO WK 08/24/21 08/21/25 01/15/23 cholecalciferol (vitamin D3) 50 50 mcg PO QAM 08/24/21 08/21/25 01/16/23 mcg (2,000 unit) tablet (Vitamin D3) clopidogrel 75 mg tablet 75 mg PO QAM 08/24/21 08/21/25 01/16/23 aspirin 81 mg tablet,delayed 81 mg PO 3XWK 01/02/24 08/21/25 Unknown release acetaminophen 325 mg tablet 650 mg PO Q4H PRN Pain/Fever 03/18/25 08/21/25 Unknown (Tylenol) albuterol sulfate 90 mcg/actuation 2 puff inhalation Q6H PRN 03/18/25 08/21/25 Unknown aerosol inhaler Cough/Wheezing bisacodyl 10 mg rectal suppository 10 mg CO Q24H PRN Constipation 03/18/25 08/21/25 Unknown famotidine 10 mg tablet 10 mg PO HS 03/18/25 08/21/25 Unknown fluticasone fur. 100 mcg-umeclid 1 inh inhalation DAILY 03/18/25 08/21/25 Unknown 62.5 mcg-vilant 25 mcg inhalat.powder (Trelegy Ellipta) lidocaine HCl 4 %-menthol 1 % 1 applic topical Q8H PRN Pain 03/18/25 08/21/25 Unknown topical cream (Icy Hot Max (lidocaine HCl-menthol)) lutein 25 mg-zeaxanthin 5 mg 1 cap PO 3XWK 03/18/25 08/21/25 Unknown capsule (Ocuvite Blue Light) nitroglycerin 0.4 mg sublingual 0.4 mg sublingual DIRECTED PRN 03/18/25 08/21/25 Unknown tablet Chest Pain ondansetron HCl 4 mg tablet 4 mg PO QAM Give before breakfast 03/18/25 08/21/25 Unknown klyxdwioalybl-GL-qyuwvsbwaav 5 10 ml PO Q4H PRN Cough and Cold 03/18/25 08/21/25 Unknown mg-10 mg-100 mg/5 mL oral liquid (Tussin CF Cough-Cold) psyllium husk 3.4 gram/5.4 gram 1 tbsp PO Q24H PRN Constipation 03/18/25 08/21/25 Unknown oral powder (Metamucil) sennosides 8.6 mg-docusate sodium 1 tab-cap PO HS 03/18/25 08/21/25 Unknown 50 mg tablet (Senna Plus) tamsulosin 0.4 mg capsule 0.4 mg PO DAILY 03/18/25 08/21/25 Unknown amlodipine 10 mg tablet 10 mg PO QAM 08/21/25 08/21/25 Unknown calcium carbonate 500 mg PO Q6H PRN Indigestion 08/21/25 08/21/25 Unknown hydrocortisone 2.5 % topical cream 1 applic topical Q6H PRN Rectal 08/21/25 08/21/25 Unknown with perineal applicator Pain/Itchiness (Procto-Med HC) isosorbide mononitrate 60 mg 60 mg PO QAM 08/21/25 08/21/25 Unknown tablet,extended release 24 hr metoprolol succinate 100 mg 100 mg PO HS 08/21/25 08/21/25 Unknown tablet,extended release 24 hr torsemide 40 mg tablet 40 mg PO DAILY 08/21/25 08/21/25 Unknown Active Medications Generic Name Dose Route Start Last Admin Trade Name Jean PRN Reason Stop Dose Admin Allopurinol 100 mg 08/22/25 09:00 08/22/25 08:44 Allopurinol 100 Mg Tab PO 09/21/25 08:59 100 mg [email or web address] ALEX Administration Amlodipine Besylate 10 mg 08/21/25 13:00 08/23/25 08:05 Amlodipine Besylate 5 Mg Tab PO 09/20/25 12:59 10 mg DAILY ALEX Administration Aspirin 81 mg 08/22/25 09:00 08/22/25 08:44 Aspirin 81 Mg Ectab PO 09/21/25 08:59 81 mg [email or web address] ALEX Administration Atorvastatin Calcium 10 mg 08/22/25 21:00 08/22/25 20:14 Atorvastatin 10 Mg Tab PO 09/21/25 20:59 10 mg [email or web address] ALEX Administration Clopidogrel Bisulfate 75 mg 08/21/25 21:00 08/22/25 20:14 Clopidogrel Bisulfate 75 Mg Tab PO 09/20/25 20:59 75 mg HS ALEX Administration Famotidine 10 mg 08/21/25 21:00 08/22/25 20:14 Famotidine 20 Mg Tab PO 09/20/25 20:59 10 mg HS ALEX Administration Fluticasone Furoate 1 puffs 08/22/25 09:00 08/23/25 08:05 Fluticasone Furoate 100mcg 14 Puffs/Inhaler INH 09/21/25 08:59 1 puffs DAILY ALEX Administration Heparin Sodium (Porcine) 5,000 units 08/21/25 21:00 08/23/25 10:07 Heparin Sod 5,000 Unit/0.5 Ml Vial SQ 09/20/25 20:59 5,000 units Q12 ALEX Administration Hydralazine HCl 50 mg 08/21/25 21:00 08/23/25 08:06 Hydralazine Tab 50 Mg Tab PO 09/20/25 20:59 50 mg BID ALEX Administration Isosorbide Mononitrate 90 mg 08/22/25 09:00 08/23/25 08:06 Isosorbide [place] Extended Rel 30 Mg Tabcr PO 09/21/25 08:59 90 mg QAM ALEX Administration Melatonin 3 mg 08/21/25 23:40 08/21/25 23:52 Melatonin 3 Mg Tab PO 09/20/25 23:39 3 mg HS PRN Administration Sleep Metoprolol Succinate 100 mg 08/21/25 21:00 08/22/25 20:19 Metoprolol Succ 50mg Ext Rel Tab PO 09/20/25 20:59 100 mg HS ALEX Administration Multivitamins/Minerals 1 tab 08/22/25 21:00 08/22/25 20:16 Cerovite Adv Formula Tab PO 09/21/25 20:59 1 tab [email or web address] ALEX Administration Pantoprazole Sodium 40 mg 08/22/25 14:00 08/23/25 08:06 Pantoprazole 40 Mg Tab PO 09/21/25 13:59 40 mg QAM ALEX Administration Ranolazine 500 mg 08/22/25 21:00 08/23/25 08:06 Ranolazine 500 Mg Er Tab PO 09/21/25 20:59 500 mg BID ALEX Administration Senna/Docusate Sodium 1 tab 08/21/25 21:00 08/22/25 20:14 Docusate Sodium/Senna 50/8.6mg Tab PO 09/20/25 20:59 1 tab HS ALEX Administration Tamsulosin HCl 0.4 mg 08/22/25 09:00 08/23/25 08:06 Tamsulosin Hcl 0.4 Mg Cap PO 09/21/25 08:59 0.4 mg DAILY ALEX Administration Torsemide 20 mg 08/22/25 09:00 08/22/25 13:22 Torsemide 20 Mg Tab PO 09/21/25 08:59 20 mg [email or web address] ALEX Administration Umeclidinium/Vilanterol 1 puffs 08/22/25 09:00 08/23/25 08:05 Umeclidinium/Vilanterol 62.5/25mcg 7 Puffs/Inhaler INH 09/21/25 08:59 1 puffs DAILY ALEX Administration Vitamin D 50 mcg 08/22/25 09:00 08/23/25 08:05 Cholecalciferol 25 Mcg (1000 Units) Tab PO 09/21/25 08:59 50 mcg QAM ALEX Administration PG Care Time/CCT Total # of Minutes Spent Total Time Spent with Patient: Total time spent is greater than 50% in coordination of care (as documented) at patient's floor/unit and/or counseling patient: Coding Level of Care Code 71324 SUB INP/OBS CARE 3/50MIN Diagnoses Chest pain at rest R07.9 Elevated troponin R77.8 New onset left bundle branch block (LBBB) I44.7 ASCVD (arteriosclerotic cardiovascular disease) I25.10 Right coronary artery occlusion I24.0 Aortic stenosis I35.0
[2025-08-24 06:10] LABS: Hematocrit (blood only) 30.5 % (42.0-52.0); Hemoglobin 9.8 g/dl (14.0-18.0); Mean Corpuscular Hemoglobin 31.9 pg (25.0-34.0); Mean Corpuscular Volume 99.3 fL (80.0-100.0); Platelet Count 174 K/uL (130-400); RDW Standard Deviation 59.1 fL (36.4-46.3); Red Blood Count 3.07 M/uL (4.70-6.10); White Blood Count 5.88 K/ul (4.8-10.8)
[2025-08-24 06:29] LABS: Anion Gap 8.0 (3-11); Blood Urea Nitrogen 47.0 mg/dl (6-23); Calcium 9.3 mg/dl (8.6-10.3); Carbon Dioxide 27.0 mmol/L (21-32); Chloride 102.0 mmol/L (98-107); Creatinine Clr Calc Pharmacy 8.9 ml/min; Glucose 101.0 mg/dl (70-99(Fasting)); Magnesium 2.4 mg/dl (1.7-2.4); Potassium 4.3 mmol/L (3.5-5.1); Sodium 137.0 mmol/L (136-145)
[2025-08-24] MEDS: EPOETIN ALFA 10,000 UNITS/ML VIAL IV ONE (11:11)
[2025-08-24] MEDS: HEPARIN SOD (PORCINE) 1000 UNIT/ML IV SCH (12:27)
[2025-08-24] MEDS: HEPARIN SOD (PORCINE) 1000 UNIT/ML IV ONE (12:27)
[2025-08-24 12:49] VITALS: BP 153/74; RESP 17; TEMP 97.9; O2SAT 94
--- NOTE | 2025-08-24 13:52 | Dialysis Progress Note ---
Date of Service August 24, 2025 Assessment & Plan (1) ESRD on hemodialysis: Plan: Appears euvolemic. electrolytes are normal. next HD after today would be for 08/26 as IP w/ goal UF up to 2 L on 2K bath for K 4.3; possible he'll be d/c CVC seems fine. NO issues reported recently with Dialysis. AVF having issues w/ cannulation hgb is acceptable at 9.9 > orders in for NILSA on tx tomorrow higher BP have resolved/improved >>>>NOTE that pt had unresponsive episode for a few minutes a/w hypotension on HD after I had left. blood rinsed back, tx stopped; primary service aware. he was for d/c today >> suggested monitor 1-2 hrs post tx before d/c Care coordinated w/ Dr Anthony muñoz TText regarding d/c dispo, indication/care plan for liu, dialysis timing; we are in agreement. (2) Chest pain: Plan: Likely cardiac.trop also rising. has new LBBB. defer to cards and primary team who are following closely .No plan for emergent intervention (3) Urinary retention: Plan: w/ liu. follows w/ Dr Lewis [facility] urology as OP Admission and Anticipated Discharge Date Admission Date: August 21, 2025 Subjective seen on HD; no c/o chst pain, sob; +restless on tx today Review of Systems 2 Review of Systems: All systems reviewed & are unremarkable except as noted in Subjective Physical Exam 2 Constitutional: well developed, well nourished and cooperative; no acute distress Eyes: EOM intact bilaterally ENMT: Ears: no external ear abnormality Nose: no external nose abnormality Mouth: + dry oral mucous membranes Neck: no nuchal rigidity Respiratory: normal respiratory effort Auscultation: + diminished lung sounds Cardiovascular: Rate/Rhythm: regular rate and regular rhythm Heart Sounds: + murmur Extremities: no edema Gastrointestinal (Abdomen): Inspection/Auscultation: normal bowel sounds P ercussion/Palpation: abdomen soft; abdomen nontender Musculoskeletal: Extremities: strength 5/5 throughout Skin: no rashes, warm and dry Results & Data Vital Signs (Past 12 Hours) Vital Signs Temp Pulse Pulse Pulse Resp BP BP 08/24/25 12:48 36.6 C 77 17 153/74 H 08/24/25 11:58 36.3 C L 70 184/43 H 08/24/25 11:53 73 194/91 H 08/24/25 11:47 67 94/50 L 08/24/25 11:30 77 128/69 08/24/25 11:00 78 138/72 08/24/25 10:30 78 130/75 08/24/25 10:00 69 136/73 08/24/25 09:30 71 145/74 H 08/24/25 09:20 71 154/70 H 08/24/25 09:18 36.4 C L 71 08/24/25 08:43 36.5 C 74 18 152/66 H 08/24/25 07:00 61 08/24/25 03:43 36.5 C 66 18 126/72 08/24/25 03:15 71 Pulse Ox O2 Del Method 08/24/25 12:48 94 Room Air 08/24/25 11:58 08/24/25 11:53 08/24/25 11:47 08/24/25 11:30 08/24/25 11:00 08/24/25 10:30 08/24/25 10:00 08/24/25 09:30 08/24/25 09:20 08/24/25 09:18 08/24/25 08:43 92 Room Air 08/24/25 07:00 08/24/25 03:43 94 Room Air 08/24/25 03:15 Laboratory Results 08/24/25 05:40 08/24/25 05:40
[2025-08-24 15:35] VITALS: PULSE 74
--- NOTE | 2025-08-24 18:33 | Discharge Summary ---
Discharge Summary Date of Service August 24, 2025 Principal Dx & Hospital Course #1 = Principal Diagnosis (1) Chest pain: Chest pain Possible angina SVT on presentation resolved with a dose of adenosine Chronic troponin elevation in setting of renal insufficiency --H/O CAD S/P stent to LAD and right coronary artery --ECHO: EF 55 to 60%. Grade 1 diastolic dysfunction. Mild pulmonic valve regurgitation. Mild mitral regurgitation. Mild valvular aortic stenosis. Mild aortic regurgitation. Mild tricuspid regurgitation. Right ventricular systolic pressure is normal. --CXR:Interval placement of a dual-lumen right sided central venous catheter with tip at the superior cavoatrial junction. No pneumothorax. Cardiomegaly with pulmonary vascular congestion suggesting CHF. Stable small left pleural effusion. Large hiatal hernia. -- lipid panel: Within normal limits -- A1c: 5.8 Patient preferred medical management Continue dual antiplatelet therapy with aspirin, Plavix Continue metoprolol, isosorbide, atorvastatin, amlodipine Added PPI Isosorbide increased to 90 mg daily Added Ranexa finder milligrams twice a day Appreciate cardiology input Plan to discharge to rehab facility/personal care likely in next 24 to 48 hours Urinary retention ? Secondary to BPH Continue home Flomax Continue Albert catheter for now Needs follow-up with urology as outpatient Voiding trial as outpatient (2) CAD (coronary atherosclerotic disease): as above (3) Chronic heart failure with preserved ejection fraction: History of chronic heart failure with preserved EF Latest echo on 03/18/2025 and showed moderate concentric LVH, LV wall motion is normal, LV systolic function is normal, LVEF was 55 to 60%, RV was normal in size and function, aortic valve is calcified to moderate to severe degree, moderate valvular aortic stenosis, there is mild mitral regurgitation and mild tricuspid regurgitation and pulmonary artery systolic pressure estimated to be 41 mmHg --echo as above Chest x-ray as above Volume status managed through dialysis Also on torsemide Aldactone discontinued as per cardiology Monitor I's and O's, daily weight, volume status (4) Hypertension, uncontrolled: BP variable Continue home medications amlodipine, hydralazine, metoprolol Monitor blood pressure (5) Chronic hypoxic respiratory failure, on home oxygen therapy: Currently saturating well on room (6) ESRD on hemodialysis: Continue dialysis per nephrology Appreciate nephrology input he has been on dialysis now (7) AAA (abdominal aortic aneurysm): Follow-up as outpatient (8) Hx of cancer of lung: Follow-up as outpatient (9) Anemia, chronic renal failure: Hemoglobin at baseline Monitor Large hiatal hernia Started on PPI DVT prophylaxis Heparin SQ CODE STATUS Full Code Disposition PT OT prior to discharge Notes For Next Care Provider He is an 85 years old male significant past medical history including chronic HF PEF, CAD status post multiple stents, PVD, history of AAA repair, hypertension hyperlipidemia, history of lung cancer status post surgery, chronic stage IV kidney disease on hemodialysis and chronic respiratory failure on 2 L of oxygen has been complaining of chest pain during breakfast this morning. Admitted for chest pain. Cardiology consulted, medications adjusted for improvement. Nephrology consulted for ESRD. PT/OT recommending return to personal fpc. On 08/24/2025 patient medically stable for discharge to personal fpc. To do: -Incidental Findings: chronic small left pleural effusion, large hiatal hernia. Medication Changes From Visit -see below Admission HPI Per Admitting Provider He is an 85 years old male significant past medical history including chronic HF PEF, CAD status post multiple stents, PVD, history of AAA repair, hypertension hyperlipidemia, history of lung cancer status post surgery, chronic stage IV kidney disease on hemodialysis and chronic respiratory failure on 2 L of oxygen has been complaining of chest pain during breakfast this morning. He he believes the pain was like that during his heart attack before and that was associated with nausea without vomiting, some shortness of breath and sweating. The pain lasted for 15 to 20 minutes and he received sublingual nitro during tra nsportation to the hospital and remained free from any pain in the hospital. He was noted to be SVT in the emergency room and received a dose of adenosine that converted him to sinus rhythm but the EKG revealed to be new left bundle branch block. His initial troponin was mildly elevated at 22. He will be admitted to telemetry unit and the case was discussed with the floor finisher helper he does not req uire to be given any heparin at this time. He has a dialysis on Friday and his next dialysis will be on Friday. Nephrology will be consulted Discharge Exam Gen: A&O 3 NAD HEENT: NCAT, EOMI, not icteric. External ears normal. No rhinorrhea. Moist mucous membranes. Neck: Supple, full range of motion, no observable masses, No meningeal sign. Lungs: No Respiratory distress. CV: RRR, no edema. Abdomen: Soft, nondistended, No rebound tenderness. MSK: No joint swelling, no redness. Skin: No rashes, petechiae, lesions. Normal color per patient. Neuro: Normal Gait, Grossly intact. Psych: Appropriate for situation. Updated Medication List Medication Instructions Recorded Confirmed Type allopurinol 100 mg tablet 100 mg PO WK 08/24/21 08/21/25 History cholecalciferol (vitamin D3) 50 50 mcg PO QAM 08/24/21 08/21/25 History mcg (2,000 unit) tablet (Vitamin D3) clopidogrel 75 mg tablet 75 mg PO QAM 08/24/21 08/21/25 History aspirin 81 mg tablet,delayed 81 mg PO 3XWK 01/02/24 08/21/25 History release acetaminophen 325 mg tablet 650 mg PO Q4H PRN Pain/Fever 03/18/25 08/21/25 History (Tylenol) albuterol sulfate 90 mcg/actuation 2 puff inhalation Q6H PRN 03/18/25 08/21/25 History aerosol inhaler Cough/Wheezing bisacodyl 10 mg rectal suppository 10 mg OK Q24H PRN Constipation 03/18/25 08/21/25 History famotidine 10 mg tablet 10 mg PO HS 03/18/25 08/21/25 History fluticasone fur. 100 mcg-umeclid 1 inh inhalation DAILY 03/18/25 08/21/25 History 62.5 mcg-vilant 25 mcg inhalat.powder (Trelegy Ellipta) lidocaine HCl 4 %-menthol 1 % 1 applic topical Q8H PRN Pain 03/18/25 08/21/25 History topical cream (Icy Hot Max (lidocaine HCl-menthol)) nitroglycerin 0.4 mg sublingual 0.4 mg sublingual DIRECTED PRN 03/18/25 08/21/25 History tablet Chest Pain ondansetron HCl 4 mg tablet 4 mg PO QAM Give before breakfast 03/18/25 08/21/25 History sennosides 8.6 mg-docusate sodium 1 tab-cap PO HS 03/18/25 08/21/25 History 50 mg tablet (Senna Plus) tamsulosin 0.4 mg capsule 0.4 mg PO DAILY 03/18/25 08/21/25 History amlodipine 10 mg tablet 10 mg PO QAM 08/21/25 08/21/25 History calcium carbonate 500 mg PO Q6H PRN Indigestion 08/21/25 08/21/25 History hydrocortisone 2.5 % topical cream 1 applic topical Q6H PRN Rectal 08/21/25 08/21/25 History with perineal applicator Pain/Itchiness (Procto-Med HC) atorvastatin 10 mg tablet 10 mg PO MoWeFr@2100 #30 tabs 08/24/25 Rx calcium carbonate (Tums) 250 mg (1.25 x 200 mg calcium (500 08/24/25 Rx mg)) PO QID PRN dyspepsia #30 tabs isosorbide mononitrate 30 mg 90 mg (3 x 30 mg) PO QAM #60 tabs 08/24/25 Rx tablet,extended release 24 hr melatonin 3 mg tablet 3 mg PO HS PRN sleep #30 tabs 08/24/25 Rx metoprolol succinate 50 mg 100 mg (2 x 50 mg) PO HS #30 tabs 08/24/25 Rx tablet,extended release 24 hr pantoprazole 40 mg tablet,delayed 40 mg PO QAM #30 tabs 08/24/25 Rx release ranolazine 500 mg tablet,extended 500 mg PO BID #30 tabs 08/24/25 Rx release,12 hr torsemide 20 mg tablet 20 mg PO MoWeFr@0900 #30 tabs 08/24/25 Rx Hospital Stay Data Consultations 08/21/25 11:27 ED Decision to Admit Stat 08/21/25 12:05 Consult Cardiology Routine Consult Nephrology Routine Pending Results Patient Have Any Pending Studies at Discharge: No Discharge Instructions Given to Patient (Per Discharging Provider) Diagnosis: chest pain, elevated troponin, ESRD, SVT (responded to adenosine) Follow Ups: PCP, cardiology Incidental Findings: chronic small left pleural effusion, large hiatal hernia. 1. Please follow up with PCP, cardiology. 2. Please take medications as prescribed. Total Time Total Time Spent Total Time Spent (In Minutes): I spent a total of 35 minutes in direct patient care, including [id number] time with the patient and/or family, reviewing medical records, ordering and reviewing diagnostic tests, and coordinating care with other healthcare providers. This time includes: history taking, physical examination, medical decision making, counseling, ECG interpretation, imaging interpretation, lab interpretation, orders, and education, excluding time spent in the performance of separately billed services.
== END 2025-08-24 16:00 | disposition home or self-care (01) | DRG 302 ==
LOC: ED 09:34 → 4W 11:29 → SUATTDRO 11:29 → 4W 12:20

== ENCOUNTER 2025-10-11 11:27 | Inpatient (IN) ==
--- NOTE | 2025-10-11 11:43 | Emergency Department Note ---
Impression & Plan Generalized muscle weakness, Urinary tract infection, Anemia, Fall, Abnormal EKG ED Provider Note NAME: RENE MAK AGE: 85 SEX: M : 1940 ARRIVES VIA: Ambulance INFORMANT: Patient, EMS ED PROVIDER(S): Adam Gamez DO CHIEF COMPLAINT: Generalized weakness HPI: The patient is an 85-year-old male who has a history of dialysis who presented to the emergency department by ambulance. The patient does take Plavix. He has a history of stroke in the past. The patient states he was trying to get out of bed this morning at approximately 6 AM. He went to get out of bed to get his brother to call the nurses but when he got out of bed he felt very weak in both legs and went to the ground. He denies having any injuries. He states initially his feet hurt but they no longer hurt. He denies having any back pain. It is unclear if he struck his head. The patient denies having any headache nausea or vomiting. He denies having any neck pain. The patient was evaluated by the nursing staff and at change of shift was sent to the emergency department for further evaluation. ROS: See above HPI for pertinent positives & negatives. A total of 10 systems reviewed and were otherwise negative. PAST MEDICAL HISTORY: See Below PAST SURGICAL HISTORY: See Below FAMILY HISTORY: See Below SOCIAL HISTORY: See Below HOME MEDICATIONS: See Below ALLERGIES: See Below VITALS: See Below PHYSICAL EXAMINATION: GENERAL: Patient is awake alert in no acute distress patient is resting comfortably and showing no signs of anxiety EYES: The conjunctivae are clear. The pupils are round and reactive. EARS, NOSE, MOUTH AND THROAT: The nose is without any evidence of any deformity. NECK: The neck is nontender and supple. RESPIRATORY: Normal respiratory effort is noted there is no evidence of wheezing rhonchi or rales CARDIOVASCULAR: Regular rate and rhythm noted there no murmurs rubs or gallops normal S1 normal S2. GASTROINTESTINAL: The abdomen is soft. Abdomen is nontender. BACK: No midline tenderness or or step-off noted range of motion in flexion extension as well as rotation no signs of muscle spasm noted MUSCULOSKELETAL/EXTREMITIES: There is no evidence of gross deformity full range of motion is noted in the hips and shoulders. SKIN: Skin is warm and dry. Trace pedal edema was noted bilaterally. Dialysis catheter was noted in the right chest wall. NEUROLOGIC: Patient is awake alert and oriented to person place and situation. Strength is symmetric but diminished. There is no facial droop noted. Speech was clear. MEDICAL DECISION MAKING: The patient is an 85-year-old male who presented to the emergency department for an evaluation. The patient fell early this morning and was reevaluated by the nursing staff at his personal-custodial. He was found to be weak. The patient is a history of renal failure. He was not sent for dialysis today but was sent to the emergency department for further evaluation. The patient offers no complaints. He denies having any headache nausea or vomiting. Given his age and comorbidities further radiographic studies were obtained. I discussed the patient's condition with the on-call [facility] hospitalist. They have agreed to evaluate the patient in the emergency department for further management and disposition. Triage Nursing notes reviewed. Prior medical records reviewed Vital Signs: reviewed and remarkable for no significant abnormalities Differential diagnosis: Infection, dehydration, metabolic abnormality, hypo/hyperglycemia, electrolyte disturbance, anemia, hypoxia, cardiac sources, intracerebral event, toxicologic, neurologic, as well as other pathologies. ER treatment provided: See below Diagnostics interpreted by me: ECG: EKG was obtained in the emergency department. My interpretation is sinus rhythm at 79 bpm. Poor baseline was noted. Nonspecific ST abnormalities were noted. There was a widened QRS noted. This was compared to a tracing from August 22, 2025. The widened QRS is new compared to the previous tracing. EKG was obtained in the emergency department. My interpretation is normal sinus rhythm at 79 bpm. An improved baseline is noted but the right bundle branch block pattern continues. This compares similar to the earlier tracing obtained in the emergency department. Cardiac Monitoring: An order was placed for continuous cardiac monitoring. The monitor shows a rate of 77 bpm with sinus rhythm. Laboratory studies: As stated above and show below. Imaging studies: See below. Radiographic imaging was reviewed by myself Consultation(s): I discussed this case with Jaelyn who is on-call for the [facility]ist group. Past Med/Surg History Problem List (Updated 10/11/25 @ 16:00 by Adam Gamez DO) Abnormal EKG (Acute) Fall (Acute) Anemia (Acute) Urinary tract infection (Acute) Generalized muscle weakness (Acute) Weakness CHF (congestive heart failure) (Acute) UTI (urinary tract infection) (Acute) Paroxysmal supraventricular tachycardia (Acute) New onset left bundle branch block (LBBB) (Acute) ESRD on hemodialysis (Acute) Elevated troponin (Acute) Chest pain (Acute) Urinary retention New onset left bundle branch block (LBBB) Right coronary artery occlusion ASCVD (arteriosclerotic cardiovascular disease) Aortic stenosis Chest pain at rest ESRD on hemodialysis Chronic hypoxic respiratory failure, on home oxygen therapy Chronic heart failure with preserved ejection fraction Hypertension, uncontrolled Anemia, chronic renal failure Elevated brain natriuretic peptide (BNP) level (Acute) Non-ST elevation MO (NSTEMI) (Acute) Anemia (Acute) Chest pain (Acute) Pleural effusion (Acute) CHF (congestive heart failure) (Acute) Flash pulmonary edema Bradycardia Encephalopathy acute Acute on chronic renal failure Aortic stenosis, moderate Acute heart failure with preserved ejection fraction Acute on chronic heart failure with normal ejection fraction BPH (benign prostatic hyperplasia) Hx of gout Hx of cancer of lung Chronic diastolic heart failure Hypertensive urgency SOB (shortness of breath) Palpitations Dyspnea (Acute) Brain TIA (Acute) Confusion (Acute) Expressive aphasia (Acute) Encephalopathy (Acute) TIA (transient ischemic attack) BPH loc w urin obs/LUTS Encounter for pre-operative examination HLD (hyperlipidemia) AAA (abdominal aortic aneurysm) GI bleed Chest pain Precordial chest pain (Acute) Anemia (Acute) Acute GI bleeding (Acute) Elevated troponin (Acute) Anemia recently admitted to [facility] for this GERD (gastroesophageal reflux disease) HTN (hypertension) (Acute) CAD (coronary atherosclerotic disease) "S/P LAD stent" Medical History Acute kidney injury superimposed on chronic kidney disease COVID-19 History of GI bleed 07/25/22, pt recently admitted to [facility] for gi bleed. pt "unsure of all the details, but know that I was anemic and had a couple pints of blood." Poor historian Hearing deficit bilat CORREA's Stomach ulcer pt "thinks it's gone now" Arthritis TIA (transient ischemic attack) X 2 "a few years ago was last one" Surgical History History of colonoscopy History of tooth extraction History of tonsillectomy and adenoidectomy H/O heart artery stent X 4 (? DATE-"maybe 5 years ago" "LAST 2 STENTS PLACED AT [facility], OTHER 2 AT [facility]") S/P lobectomy of lung History of left-sided carotid endarterectomy H/O aortic aneurysm repair 2013 AT [facility] Family History Other No family history of adverse response to anesthesia No significant family history Social History Smoking Status: Former smoker Tobacco Type: Cigarettes Second Hand Exposure: No; Do You Dip or Chew Tobacco: No; Hx Alcohol Use: No Hx Substance Use: No Preferred Language: Namibian Communication Ability: Effective Communications Agent Required: No Beliefs That Will Affect Care: None Current Living Situation: Personal Care Facility Current Living Situation Comment: [facility] How many Children do You have: 1 Feels Safe at Home: Yes Assistive Devices: Walker Allergies Allergies Allergy/AdvReac Type Severity Reaction Status Date / Time Penicillins Allergy Intermediate Rash Verified 10/11/25 15:08 Home Meds Home Medications Medication Instructions Recorded Confirmed allopurinol 100 mg tablet 100 mg PO WK 08/24/21 10/11/25 cholecalciferol (vitamin D3) 50 50 mcg PO QAM 08/24/21 10/11/25 mcg (2,000 unit) tablet (Vitamin D3) clopidogrel 75 mg tablet 75 mg PO QAM 08/24/21 10/11/25 aspirin 81 mg tablet,delayed 81 mg PO 3XWK 01/02/24 10/11/25 release albuterol sulfate 90 mcg/actuation 2 puff inhalation Q6H PRN 03/18/25 10/11/25 aerosol inhaler Cough/Wheezing bisacodyl 10 mg rectal suppository 10 mg VA Q24H PRN Constipation 03/18/25 10/11/25 famotidine 10 mg tablet 10 mg PO HS 03/18/25 10/11/25 fluticasone fur. 100 mcg-umeclid 1 inh inhalation QPM 03/18/25 10/11/25 62.5 mcg-vilant 25 mcg inhalat.powder (Trelegy Ellipta) lidocaine HCl 4 %-menthol 1 % 1 applic topical Q8H PRN Pain 03/18/25 10/11/25 topical cream (Icy Hot Max (lidocaine HCl-menthol)) nitroglycerin 0.4 mg sublingual 0.4 mg sublingual DIRECTED PRN 03/18/25 10/11/25 tablet Chest Pain ondansetron HCl 4 mg tablet 4 mg PO DAILYBB 03/18/25 10/11/25 sennosides 8.6 mg-docusate sodium 1 tab-cap PO HS 03/18/25 10/11/25 50 mg tablet (Senna Plus) tamsulosin 0.4 mg capsule 0.4 mg PO DAILY 03/18/25 10/11/25 calcium carbonate 500 mg PO Q6H PRN Indigestion 08/21/25 10/11/25 hydrocortisone 2.5 % topical cream 1 applic topical Q6H PRN Rectal 08/21/25 10/11/25 with perineal applicator Pain/Itchiness (Procto-Med HC) acetaminophen 325 mg tablet 650 mg PO Q4H PRN PAIN/TEMP >100F 10/11/25 10/11/25 (Tylenol) amlodipine 5 mg tablet 5 mg PO DAILY 10/11/25 10/11/25 atorvastatin 10 mg tablet 10 mg PO HS 10/11/25 10/11/25 ipratropium 0.5 mg-albuterol 3 mg 3 ml inhalation Q8H PRN 10/11/25 10/11/25 (2.5 mg base)/3 mL nebulization CONGESTION/WHEEZING soln isosorbide mononitrate 60 mg 60 mg PO QAM 10/11/25 10/11/25 tablet,extended release 24 hr lutein 25 mg-zeaxanthin 5 mg 1 cap PO 3XWK 10/11/25 10/11/25 capsule (Ocuvite Blue Light) metoprolol succinate 25 mg 20 mg PO BID 10/11/25 10/11/25 tablet,extended release 24 hr psyllium husk 3.4 gram/5.4 gram 3 tbsp PO DAILY PRN Constipation 10/11/25 10/11/25 oral powder (Metamucil) sulfamethoxazole 800 0.5 tab PO QPM 10/11/25 10/11/25 mg-trimethoprim 160 mg tablet (Bactrim DS) torsemide 20 mg tablet 40 mg PO QAM 10/11/25 10/11/25 zinc oxide 10 % topical cream 1 applic topical BID 10/11/25 10/11/25 Previous Rx's Medication Instructions Recorded atorvastatin 10 mg tablet 10 mg PO MoWeFr@2100 #30 tabs 08/24/25 calcium carbonate (Tums) 250 mg (1.25 x 200 mg calcium (500 08/24/25 mg)) PO QID PRN dyspepsia #30 tabs melatonin 3 mg tablet 3 mg PO HS PRN sleep #30 tabs 08/24/25 pantoprazole 40 mg tablet,delayed 40 mg PO QAM #30 tabs 08/24/25 release ranolazine 500 mg tablet,extended 500 mg PO BID #30 tabs 08/24/25 release,12 hr Results & Data (ED) Vital Signs Vital Signs - 24 hr 10/11/25 11:14 10/11/25 11:14 10/11/25 11:48 Temperature 37.1 C Temperature Source Oral Pulse Rate 76 Pulse Rate [Apical] 76 Pulse Rate from SpO2 Sensor 75 Respiratory Rate 16 21 Respiratory Effort / Characteristics Non-Labored Spontaneous Blood Pressure Blood Pressure [Left Arm] 142/78 H Blood Pressure Mean Blood Pressure Mean [Left Arm] 99 Blood Pressure Position [Left Arm] Lying Pulse Oximetry 96 93 Oxygen Delivery Method Nasal Cannula Oxygen Flow Rate 2 Sepsis Recent Fever Within 48 Hours No Sepsis New/Unexplained Change in Mental Status N/A Sepsis Action Taken by Nursing No Action Required 10/11/25 11:51 10/11/25 12:00 10/11/25 12:08 Temperature Temperature Source Pulse Rate 80 76 Pulse Rate [Apical] Pulse Rate from SpO2 Sensor 80 79 Respiratory Rate 17 18 Respiratory Effort / Characteristics Blood Pressure Blood Pressure [Left Arm] Blood Pressure Mean Blood Pressure Mean [Left Arm] Blood Pressure Position [Left Arm] Pulse Oximetry 92 97 Oxygen Delivery Method Oxygen Flow Rate Sepsis Recent Fever Within 48 Hours Sepsis New/Unexplained Change in Mental Status Sepsis Action Taken by Nursing 10/11/25 12:12 10/11/25 12:21 10/11/25 12:30 Temperature Temperature Source Pulse Rate 78 78 79 Pulse Rate [Apical] Pulse Rate from SpO2 Sensor 77 80 78 Respiratory Rate 15 17 15 Respiratory Effort / Characteristics Blood Pressure 151/87 H Blood Pressure [Left Arm] Blood Pressure Mean 108 Blood Pressure Mean [Left Arm] Blood Pressure Position [Left Arm] Pulse Oximetry 98 100 97 Oxygen Delivery Method Oxygen Flow Rate Sepsis Recent Fever Within 48 Hours Sepsis New/Unexplained Change in Mental Status Sepsis Action Taken by Nursing 10/11/25 12:42 10/11/25 13:00 10/11/25 13:06 Temperature Temperature Source Pulse Rate 78 Pulse Rate [Apical] Pulse Rate from SpO2 Sensor 78 78 Respiratory Rate 16 Respiratory Effort / Characteristics Blood Pressure 151/87 H Blood Pressure [Left Arm] Blood Pressure Mean 109 Blood Pressure Mean [Left Arm] Blood Pressure Position [Left Arm] Pulse Oximetry 96 93 Oxygen Delivery Method Oxygen Flow Rate Sepsis Recent Fever Within 48 Hours Sepsis New/Unexplained Change in Mental Status Sepsis Action Taken by Nursing 10/11/25 13:06 10/11/25 13:06 10/11/25 13:06 Temperature Temperature Source Pulse Rate Pulse Rate [Apical] Pulse Rate from SpO2 Sensor Respiratory Rate Respiratory Effort / Characteristics Blood Pressure 151/87 H 151/87 H 151/87 H Blood Pressure [Left Arm] Blood Pressure Mean 109 109 109 Blood Pressure Mean [Left Arm] Blood Pressure Position [Left Arm] Pulse Oximetry Oxygen Delivery Method Oxygen Flow Rate Sepsis Recent Fever Within 48 Hours Sepsis New/Unexplained Change in Mental Status Sepsis Action Taken by Nursing 10/11/25 13:06 10/11/25 13:06 10/11/25 13:12 Temperature Temperature Source Pulse Rate 79 77 Pulse Rate [Apical] Pulse Rate from SpO2 Sensor 78 77 Respiratory Rate 14 16 Respiratory Effort / Characteristics Blood Pressure 151/87 H Blood Pressure [Left Arm] Blood Pressure Mean 109 Blood Pressure Mean [Left Arm] Blood Pressure Position [Left Arm] Pulse Oximetry 92 93 Oxygen Delivery Method Oxygen Flow Rate Sepsis Recent Fever Within 48 Hours Sepsis New/Unexplained Change in Mental Status Sepsis Action Taken by Nursing 10/11/25 13:21 10/11/25 13:30 10/11/25 13:30 Temperature Temperature Source Pulse Rate 78 Pulse Rate [Apical] Pulse Rate from SpO2 Sensor 78 Respiratory Rate 14 Respiratory Effort / Characteristics Blood Pressure 134/85 134/85 Blood Pressure [Left Arm] Blood Pressure Mean 106 106 Blood Pressure Mean [Left Arm] Blood Pressure Position [Left Arm] Pulse Oximetry 92 Oxygen Delivery Method Oxygen Flow Rate Sepsis Recent Fever Within 48 Hours Sepsis New/Unexplained Change in Mental Status Sepsis Action Taken by Nursing 10/11/25 13:30 10/11/25 13:30 10/11/25 13:30 Temperature Temperature Source Pulse Rate Pulse Rate [Apical] Pulse Rate from SpO2 Sensor Respiratory Rate Respiratory Effort / Characteristics Blood Pressure 134/85 134/85 134/85 Blood Pressure [Left Arm] Blood Pressure Mean 106 106 106 Blood Pressure Mean [Left Arm] Blood Pressure Position [Left Arm] Pulse Oximetry Oxygen Delivery Method Oxygen Flow Rate Sepsis Recent Fever Within 48 Hours Sepsis New/Unexplained Change in Mental Status Sepsis Action Taken by Nursing 10/11/25 13:30 10/11/25 13:42 10/11/25 13:51 Temperature Temperature Source Pulse Rate 77 76 77 Pulse Rate [Apical] Pulse Rate from SpO2 Sensor 77 76 77 Respiratory Rate 16 20 19 Respiratory Effort / Characteristics Blood Pressure Blood Pressure [Left Arm] Blood Pressure Mean Blood Pressure Mean [Left Arm] Blood Pressure Position [Left Arm] Pulse Oximetry 91 93 94 Oxygen Delivery Method Oxygen Flow Rate Sepsis Recent Fever Within 48 Hours Sepsis New/Unexplained Change in Mental Status Sepsis Action Taken by Prison Medications Current Medication List: was personally reviewed by me Laboratory Data Attestation: I reviewed the patient's lab results. 10/11/25 12:08 10/11/25 12:08 Lab Results 10/11/25 10/11/25 10/11/25 Range/Units 12:08 12:12 12:55 WBC 9.81 (4.8-10.8) K/ul RBC 2.23 L (4.70-6.10) M/uL Hgb 7.8 L (14.0-18.0) g/dL POC Hgb 8.2 L (14.0-18.0) g/dl Hct 23.2 L (42.0-52.0) % POC Hct 24 L (42-52) % MCV 104.0 H (80.0-100.0) fL MCH 35.0 H (25.0-34.0) pg MCHC 33.6 (32.0-36.0) g/dL RDW Std Deviation 69.3 H (36.4-46.3) fL RDW Coeff of Serene 18.9 H (11.5-14.5) % Plt Count 285 (130-400) K/uL MPV 9.6 (9.4-12.4) fL Immature Gran % (Auto) 1.4 % Neut % (Auto) 85.1 % Lymph % (Auto) 5.8 % [place] % (Auto) 6.8 % Eos % (Auto) 0.4 % Baso % (Auto) 0.5 % Neut # (Auto) 8.34 H (1.40-6.50) K/uL Lymph # (Auto) 0.57 L (1.20-3.40) K/uL [place] # (Auto) 0.67 H (0.11-0.59) K/uL Eos # (Auto) 0.04 (0.00-0.50) K/uL Baso # (Auto) 0.05 (0.00-0.20) K/uL Immature Gran # (Auto) 0.14 (0.01-0.20) K/uL Absolute Nucleated RBC 0.04 (0.00-0.12) K/uL Nucleated RBC % (auto) 0.4 % Polychromasia 1+ PT 11.8 (9.0-12.0) Seconds INR 1.1 (0.9-1.1) APTT 28 (21-31) Seconds PTT Ratio 1.0 POC Sodium 137 (135-144) mmol/L Sodium 137 (136-145) mmol/L POC Potassium 3.8 (3.3-5.0) mmol/L Potassium 3.8 (3.5-5.1) mmol/L POC Chloride 101 (101-112) mmol/L Chloride 100 (98-107) mmol/L Carbon Dioxide 26 (21-32) mmol/L POC Total CO2 24 (24-31) mmol/L Anion Gap 11 (3-11) POC Anion Gap 17.0 (16-25) mmol/L POC BUN 37 H (7-18) mg/dl BUN 41 H (6-23) mg/dl Creatinine 6.21 H* (0.6-1.4) mg/dl POC Creatinine 7.2 H* (0.6-1.3) mg/dl Est Cr Clr Drug Dosing 4.4 ml/min eGFR 8.19 BUN/Creatinine Ratio 6.6 L (10-20) Glucose 107 H (70-99(Fasting)) mg/dl POC Glucose (other) 106 H (70-99) mg/dl Calcium 9.4 (8.6-10.3) mg/dl POC Ioniz Calcium [place] 1.15 (1.12-1.32) mmol/l Magnesium 2.3 (1.7-2.4) mg/dl Total Bilirubin 0.5 (0.2-1.0) mg/dl AST 16 (13-39) U/L ALT 9 (7-52) U/L Alkaline Phosphatase 71 (34-104) U/L Total Creatine Kinase 77 (30-223) U/L Troponin I High Sens 114.5 H* (0-20) pg/ml Total Protein 7.6 (6.0-8.3) gm/dl Albumin 3.5 (3.4-5.0) gm/dl Globulin 4.1 H (2.5-4.0) gm/dl Albumin/Globulin Ratio 0.9 (0.9-2) TSH 2.998 (0.300-4.500) uIu/ml Urine Color Yellow Urine Appearance Turbid A (Clear) Urine pH 6.0 (4.5-7.5) Ur Specific [place] 1.016 (1.000-1.030) Urine Protein 2+ H (Negative) Urine Glucose (UA) Negative (Negative) Urine Ketones Negative (Negative) Urine Blood 2+ H (Negative) Urine Nitrite Negative (Negative) Urine Bilirubin Negative (Negative) Urine Urobilinogen Negative (Negative) Ur Leukocyte Esterase 3+ H (Negative) Urine WBC (Auto) >50 H (0-5) /hpf Urine RBC (Auto) >20 H (0-2) /hpf U Hyaline Cast (Auto) 11-20 H (0-2) /lpf U Epithel Cells (Auto) 0-2 (0-2) /hpf Urine Bacteria (Auto) None Seen (None Seen) Calcium Oxalate Crystal Present A (None Prsent) Hyaline Casts Present A (None Presnt) /lpf Granular Casts Present A (None Prsent) /lpf Urine Yeast Present A (None Prsent) Urine Comment Administered Medications Discontinued Medications Furosemide (Furosemide 40 Mg/4 Ml Vial) 80 mg IV ONE ONE Stop: 10/11/25 13:34 Last Admin: 10/11/25 13:45 Dose: 80 mg Documented By: QGV Ceftriaxone Sodium (Rocephin) 2,000 mg in 50 mls @ 100 mls/hr IV NOW STA Stop: 10/11/25 14:01 Last Admin: 10/11/25 13:45 Dose: 100 mls/hr Documented By: QGV Miscellaneous (No Heparin In Dialysis) 1 each N/A ONE ONE Stop: 10/11/25 14:46 Last Admin: 10/11/25 15:56 Dose: Not Given Documented By: CC Imaging Data Attestation: I personally reviewed and interpreted this imaging study as follows: My Impression: 1 view chest x-ray was obtained in the emergency department. My interpretation is cardiomegaly, no free air or definite infiltrate was noted, final report below. Radiologist's Impression: Cervical Spine CT 10/11/25 11:36 CT SCAN OF THE CERVICAL SPINE CLINICAL HISTORY: Neck pain status post trauma COMPARISON STUDY: CT angiography neck dated 01/16/2023 TECHNIQUE: CT scan of the cervical spine is performed from the skull base to the upper thoracic spine. Images are reviewed in the axial, sagittal, and coronal planes. IV contrast was not administered for this examination. A dose lowering technique was utilized adhering to the principles of ALARA. CT DOSE: FINDINGS: Prevertebral soft tissues are normal. No acute fractures or traumatic subluxations are visualized. There are multilevel degenerative changes present. Minimal anterolisthesis of C4 on C5 is felt to be degenerative. There is moderate disc space narrowing at the C6-7 level. There is no CT evidence of paraspinal hematoma. Visualized portions the lung apices reveal mild septal edema and emphysema. There are bilateral pleural effusions. There is no pathologic cervical lymphadenopathy. IMPRESSION: 1. Multilevel degenerative change. No acute fractures or traumatic subluxations identified. 2. Bilateral pleural effusions, emphysema, and mild septal edema. ACT 112: Negative or not required by law. Electronically signed by: Erwin Bhakta M.D. 10/11/2025 1:26 PM Chest X-Ray 10/11/25 11:36 XR chest 1V portable CLINICAL HISTORY: weakness COMPARISON STUDY: 10/06/2025 FINDINGS: Stable dialysis catheter. Stable surgical clips overlying the left mediastinum. Stable cardiomegaly with pulmonary vascular congestion. Stable diffuse pulmonary interstitial opacity. Stable blunting of the costophrenic angles. Stable pleural thickening at the left lung apex. No pneumothorax. Stable old healed left mid rib fracture. IMPRESSION: Stable findings of CHF with possible small pleural effusions. ACT 112: Negative or not required by law. Electronically signed by: Prashant Aguirre M.D. 10/11/2025 12:[address] 10/11/25 11:36 CT SCAN OF THE BRAIN WITHOUT IV CONTRAST CLINICAL HISTORY: Fall. COMPARISON STUDY: Head CT January 06, 2025. MRI of the brain January 17, 2023. TECHNIQUE: Unenhanced axial CT scan of the brain was performed from the vertex to the skull base. A dose lowering technique was utilized adhering to the principles of ALARA. CT DOSE: 1213.24 mGy.cm FINDINGS: Brain parenchyma: No acute intracranial hemorrhage, midline shift or mass effect is present. Saxena-white matter differentiation is preserved. There are no extra- axial fluid collections. There are no findings to suggest acute dural sinus thrombosis or acute territorial infarct. White matter hypodensities are similar to prior exam and favor small vessel disease. Ventricles, sulci, cisterns: Ventricular dilatation is unchanged and likely related to atrophy. The basal cisterns are patent. Calvarium: Unremarkable. Sinuses and mastoids: The visualized paranasal sinuses are clear. The mastoid air cells are well pneumatized. Orbits: The bony orbits are grossly intact. IMPRESSION: 1. No acute intracranial findings. 2. No calvarial fractures. ACT 112: Negative or not required by law. Electronically signed by: Blair Robles M.D. 10/11/2025 1:12 PM Pelvis X-Ray 10/11/25 11:36 XR pelvis 1-2V routine CLINICAL HISTORY: fall COMPARISON: None FINDINGS: Skin fold artifact overlies the hips and bowel artifact overlies the pelvis. No fracture or dislocation seen. There are degenerative changes at the hips and lower lumbar spine. IMPRESSION: No pelvic fracture seen. ACT 112: Negative or not required by law. Electronically signed by: Prashant Aguirre M.D. 10/11/2025 12:01 PM Hand X-Ray 10/11/25 11:37 XR hand RT min 3V routine CLINICAL HISTORY: fall COMPARISON: None FINDINGS: No acute fracture or dislocation seen. IMPRESSION: No fracture seen. ACT 112: Negative or not required by law. Electronically signed by: Prashant Aguirre M.D. 10/11/2025 12:02 PM Discharge Plan Visit Data Chief Complaint: Fall Stated Complaint: FALL ED Provider: Adam Gamez Discharge Problem: Generalized muscle weakness, Urinary tract infection, Anemia, Fall, Abnormal EKG Patient Disposition: Being Evaluated by Hospitalist Condition: Fair
--- NOTE | 2025-10-11 12:02 | XRay Report ---
XR chest 1V portable CLINICAL HISTORY: weakness COMPARISON STUDY: 10/06/2025 FINDINGS: Stable dialysis catheter. Stable surgical clips overlying the left mediastinum. Stable card iomegaly with pulmonary vascular congestion. Stable diffuse pulmonary interstitial opacity. Stable bl unting of the costophrenic angles. Stable pleural thickening at the left lung apex. No pneumothorax. Stable old healed left mid rib fracture. IMPRESSION: Stable findings of CHF with possible small pleural effusions. ACT 112: Negative or not required by law. Electronically signed by: Prashant Aguirre M.D. 10/11/2025 12:00 PM
--- NOTE | 2025-10-11 12:02 | XRay Report ---
XR pelvis 1-2V routine CLINICAL HISTORY: fall COMPARISON: None FINDINGS: Skin fold artifact overlies the hips and bowel artifact overlies the pelvis. No fracture o r dislocation seen. There are degenerative changes at the hips and lower lumbar spine. IMPRESSION: No pelvic fracture seen. ACT 112: Negative or not required by law. Electronically signed by: Prashant Aguirre M.D. 10/11/2025 12:01 PM
--- NOTE | 2025-10-11 12:04 | XRay Report ---
XR hand RT min 3V routine CLINICAL HISTORY: fall COMPARISON: None FINDINGS: No acute fracture or dislocation seen. IMPRESSION: No fracture seen. ACT 112: Negative or not required by law. Electronically signed by: Prashant Aguirre M.D. 10/11/2025 12:02 PM
[2025-10-11 12:22] LABS: Hematocrit (blood only) 23.2 % (42.0-52.0); Hemoglobin 7.8 g/dL (14.0-18.0); Immature Granulocytes # (auto) 0.14 K/uL (0.01-0.20); Immature Granulocytes % (auto) 1.4 %; Mean Corpuscular Hemoglobin 35.0 pg (25.0-34.0); Mean Corpuscular Volume 104.0 fL (80.0-100.0); Platelet Count 285 K/uL (130-400); RDW Standard Deviation 69.3 fL (36.4-46.3); Red Blood Count 2.23 M/uL (4.70-6.10); White Blood Count 9.81 K/ul (4.8-10.8)
[2025-10-11 12:50] LABS: INR 1.1 (0.9-1.1); Partial Thromboplastin Time 28 Seconds (21-31); Prothrombin Time 11.8 Seconds (9.0-12.0)
[2025-10-11 12:56] LABS: Polychromasia 1+
[2025-10-11 13:00] LABS: Alanine Aminotransferase 9.0 U/L (7-52); Albumin Globulin Ratio 0.9 (0.9-2); Albumin Level 3.5 gm/dl (3.4-5.0); Alkaline Phosphatase 71.0 U/L (34-104); Anion Gap 11.0 (3-11); Bilirubin,Total 0.5 mg/dl (0.2-1.0); Blood Urea Nitrogen 41.0 mg/dl (6-23); Calcium 9.4 mg/dl (8.6-10.3); Carbon Dioxide 26.0 mmol/L (21-32); Chloride 100.0 mmol/L (98-107); Creatine Kinase 77.0 U/L (30-223); Creatinine Clr Calc Pharmacy 4.4 ml/min; Globulin 4.1 gm/dl (2.5-4.0); Glucose 107.0 mg/dl (70-99(Fasting)); Magnesium 2.3 mg/dl (1.7-2.4); Potassium 3.8 mmol/L (3.5-5.1); Sodium 137.0 mmol/L (136-145); Thyroid Stimulating Hormone 2.998 uIu/ml (0.300-4.500); Total Protein 7.6 gm/dl (6.0-8.3)
--- NOTE | 2025-10-11 13:13 | CT Scan Report ---
CT SCAN OF THE BRAIN WITHOUT IV CONTRAST CLINICAL HISTORY: Fall. COMPARISON STUDY: Head CT January 06, 2025. MRI of the brain January 17, 2023. TECHNIQUE: Unenhanced axial CT scan of the brain was performed from the vertex to the skull base. A dose lowering technique was utilized adhering to the principles of ALARA. CT DOSE: 1213.24 mGy.cm FINDINGS: Brain parenchyma: No acute intracranial hemorrhage, midline shift or mass effect is present. Saxena-whi te matter differentiation is preserved. There are no extra-axial fluid collections. There are no find ings to suggest acute dural sinus thrombosis or acute territorial infarct. White matter hypodensities are similar to prior exam and favor small vessel disease. Ventricles, sulci, cisterns: Ventricular dilatation is unchanged and likely related to atrophy. The b deepa cisterns are patent. Calvarium: Unremarkable. Sinuses and mastoids: The visualized paranasal sinuses are clear. The mastoid air cells are well pneu matized. Orbits: The bony orbits are grossly intact. IMPRESSION: 1. No acute intracranial findings. 2. No calvarial fractures. ACT 112: Negative or not required by law. Electronically signed by: Blair Robles M.D. 10/11/2025 1:12 PM
--- NOTE | 2025-10-11 13:28 | CT Scan Report ---
CT SCAN OF THE CERVICAL SPINE CLINICAL HISTORY: Neck pain status post trauma COMPARISON STUDY: CT angiography neck dated 01/16/2023 TECHNIQUE: CT scan of the cervical spine is performed from the skull base to the upper thoracic spine . Images are reviewed in the axial, sagittal, and coronal planes. IV contrast was not administered fo r this examination. A dose lowering technique was utilized adhering to the principles of ALARA. CT DOSE: FINDINGS: Prevertebral soft tissues are normal. No acute fractures or traumatic subluxations are visualized. Th ere are multilevel degenerative changes present. Minimal anterolisthesis of C4 on C5 is felt to be de generative. There is moderate disc space narrowing at the C6-7 level. There is no CT evidence of paraspinal hematoma. Visualized portions the lung apices reveal mild septal edema and emphysema. There are bilateral pleur al effusions. There is no pathologic cervical lymphadenopathy. IMPRESSION: 1. Multilevel degenerative change. No acute fractures or traumatic subluxations identified. 2. Bilateral pleural effusions, emphysema, and mild septal edema. ACT 112: Negative or not required by law. Electronically signed by: Erwin Bhakta M.D. 10/11/2025 1:26 PM
[2025-10-11 13:29] LABS: Appearance Urine Turbid (Clear); Bacteria Urine Automated None Seen (None Seen); Epithelial Cell Urine Auto 0-2 /hpf (0-2); Glucose Urine UA Negative (Negative); RBC Urine Automated >20 /hpf (0-2); WBC Urine Automated >50 /hpf (0-5)
[2025-10-11] MEDS: cefTRIAXone SODIUM 2,000 MG/50 ML BAG IV STA (13:45)
[2025-10-11] MEDS: FUROSEMIDE 40 MG/4 ML VIAL IV ONE (13:45)
--- NOTE | 2025-10-11 13:54 | History & Physical Report ---
Date of Service October 11, 2025 Assessment & Plan (1) ESRD on hemodialysis: (2) UTI (urinary tract infection): (3) Anemia, chronic renal failure: (4) Weakness: (5) CHF (congestive heart failure): Plan Mr. Pérez is an 85 year old male that presented to the ED with weakness and a fall that he had this morning at 0100. He reports that his legs became weak but denies any injuries from his fall. Denies LOC or hitting his head. He is a very pleasant and states that he did not go to his scheduled hemodialysis appointment yesterday because he was feeling unwell. Lengthy PMH including: ASCVD, s/p remote PCI of the LAD mid LAD with in-stent restenosis x 2, HFpEF, aortic valve stenosis, PAD, history of TIA status post left carotid endarterectomy, AAA status post repair, ESRD on HD, HTN, H LD, history of lung cancer left lower lobe lung resection, COPD, chronic respiratory failure on 2 L supplemental O2, anemia of chronic disease. Patient was recently admitted from 08/21/25-08/25/25 for chest pain and SVT. CXR suggesting small pleural effusions; stable CHF. Head CT, pelvic X-ray and hand x-ray negative. Patient will be admitted for further evaluation and management of his ESRD with a planned HD treatment today and for tomorrow, formal nephrology consult, exchange indwelling liu catheter, continue to treat for UTI with Rocephin; patient with PCN allergy but has tolerated Rocephin, repeat CXR in AM, PT/OT for weakness. Patient denies headache, dizziness, shortness of breath, chest pain, palpitations, no increased peripheral edema, no dizziness or lightheadedness, denies fever or chills #ESRD on hemodialysis: Every other day HD; was to have HD today; did not go Nephrology consulted; appreciate [facility] Plan for partial treatment today and tomorrow to compensate for missed session Procrit ordered trend labs; hold Heparin #UTI: #BPH: S/P LUTS Chronic indwelling liu; presumably placed two months ago UA suggestive of UTI IV Rocephin started in ED; continue for now Exchange Liu catheter and obtain urine culture Does produce urine #HFpEF: Latest echo on 08/22/2025 EF 55 to 60%, G1 DD X, mild MR/TR EF 55 to 60%, G1 DD X, mild MR/TR chest x-ray suggestive of volume overload Lasix 80 mg given once in ED; Takes torsemide; cont repeat CXR in AM #CAD: Chronic troponin elevation ISO renal failure Trop 114; trend x1. No not suspect ACS rather ischemic demand H/O CAD S/P stent to LAD and right coronary artery Takes Imdur continue #HTN: Normotensive in ED Takes amlodipine; continue #Chronic hypoxic respiratory failure: #H/O Lung cancer: S/P lung resection Prescribed Trelegy Wears 2 L supplemental O2 at home 24/7 O2 sats 93 to 95% on 2L in ED #Anemia, chronic renal failure: Hgb7.8; baseline 9-10 #H/O CVA: Takes Plavix; continue Disposition: PCP: [facility] Code Status: DNR.DNI DVT prophylaxis: Teds and SCDs for now I spent a total of 80 minutes coordinating, documenting, and providing care for this patient excluding time spent inthe performance of separately billed services or time spent by another provider/QHP. History of Present Illness Chief Complaint: weakness Primary Care Provider: [facility] Mr. Pérez is an 85 year old male that presented to the ED with weakness and a fall that he had this morning at 0100. He reports that his legs became weak but denies any injuries from his fall. Denies LOC or hitting his head. He is a very pleasant and states that he did not go to his scheduled hemodialysis appointment yesterday because he was feeling unwell. Lengthy PMH including: ASCVD, s/p remote PCI of the LAD mid LAD with in-stent restenosis x 2, HFpEF, aortic valve stenosis, PAD, history of TIA status post left carotid endarterectomy, AAA status post repair, ESRD on HD, HTN, H LD, history of lung cancer left lower lobe lung resection, COPD, chronic respiratory failure on 2 L supplemental O2, anemia of chronic disease. Patient was recently admitted from 08/21/25-08/25/25 for chest pain and SVT. CXR suggesting small pleural effusions; stable CHF. Head CT, pelvic X-ray and hand x-ray negative. Most recent ECHO: 08/22/25; EF 55 to 60%, G1 DD X, mild MR/TR Patient will be admitted for further evaluation and management of his ESRD with a planned HD treatment today and for tomorrow, formal nephrology consult, exchange indwelling liu catheter, continue to treat for UTI with Rocephin; patient with PCN allergy but has tolerated Rocephin, repeat CXR in AM, PT/OT for weakness. Patient denies headache, dizziness, shortness of breath, chest pain, palpitations, no increased peripheral edema, no dizziness or lightheadedness, denies fever or chills. On examination, he does not appear to be in apparent distress. He is able to answer all questions. He denies SOB, but does appear winded with lengthy sentences. He does have crackles bilaterally on examination. No ankle or pedal edema. Previous tobacco use, denies alcohol use, denies recreational drug use. Resident of [facility]. 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 Please see AP For further details. Allergies Allergy/AdvReac Type Severity Reaction Status Date / Time Penicillins Allergy Intermediate Rash Verified 10/11/25 15:08 Home Medications Medication Instructions Recorded Confirmed Type allopurinol 100 mg tablet 100 mg PO WK 08/24/21 10/11/25 History cholecalciferol (vitamin D3) 50 50 mcg PO QAM 08/24/21 10/11/25 History mcg (2,000 unit) tablet (Vitamin D3) clopidogrel 75 mg tablet 75 mg PO QAM 08/24/21 10/11/25 History aspirin 81 mg tablet,delayed 81 mg PO 3XWK 01/02/24 10/11/25 History release albuterol sulfate 90 mcg/actuation 2 puff inhalation Q6H PRN 03/18/25 10/11/25 History aerosol inhaler Cough/Wheezing bisacodyl 10 mg rectal suppository 10 mg MN Q24H PRN Constipation 03/18/25 10/11/25 History famotidine 10 mg tablet 10 mg PO HS 03/18/25 10/11/25 History fluticasone fur. 100 mcg-umeclid 1 inh inhalation QPM 03/18/25 10/11/25 History 62.5 mcg-vilant 25 mcg inhalat.powder (Trelegy Ellipta) lidocaine HCl 4 %-menthol 1 % 1 applic topical Q8H PRN Pain 03/18/25 10/11/25 History topical cream (Icy Hot Max (lidocaine HCl-menthol)) nitroglycerin 0.4 mg sublingual 0.4 mg sublingual DIRECTED PRN 03/18/25 10/11/25 History tablet Chest Pain ondansetron HCl 4 mg tablet 4 mg PO DAILYBB 03/18/25 10/11/25 History sennosides 8.6 mg-docusate sodium 1 tab-cap PO HS 03/18/25 10/11/25 History 50 mg tablet (Senna Plus) tamsulosin 0.4 mg capsule 0.4 mg PO DAILY 03/18/25 10/11/25 History calcium carbonate 500 mg PO Q6H PRN Indigestion 08/21/25 10/11/25 History hydrocortisone 2.5 % topical cream 1 applic topical Q6H PRN Rectal 08/21/25 10/11/25 History with perineal applicator Pain/Itchiness (Procto-Med HC) atorvastatin 10 mg tablet 10 mg PO MoWeFr@2100 #30 tabs 08/24/25 10/11/25 Rx calcium carbonate (Tums) 250 mg (1.25 x 200 mg calcium (500 08/24/25 10/11/25 Rx mg)) PO QID PRN dyspepsia #30 tabs melatonin 3 mg tablet 3 mg PO HS PRN sleep #30 tabs 08/24/25 10/11/25 Rx pantoprazole 40 mg tablet,delayed 40 mg PO QAM #30 tabs 08/24/25 10/11/25 Rx release ranolazine 500 mg tablet,extended 500 mg PO BID #30 tabs 08/24/25 10/11/25 Rx release,12 hr acetaminophen 325 mg tablet 650 mg PO Q4H PRN PAIN/TEMP >100F 10/11/25 10/11/25 History (Tylenol) amlodipine 5 mg tablet 5 mg PO DAILY 10/11/25 10/11/25 History atorvastatin 10 mg tablet 10 mg PO HS 10/11/25 10/11/25 History ipratropium 0.5 mg-albuterol 3 mg 3 ml inhalation Q8H PRN 10/11/25 10/11/25 History (2.5 mg base)/3 mL nebulization CONGESTION/WHEEZING soln isosorbide mononitrate 60 mg 60 mg PO QAM 10/11/25 10/11/25 History tablet,extended release 24 hr lutein 25 mg-zeaxanthin 5 mg 1 cap PO 3XWK 10/11/25 10/11/25 History capsule (Ocuvite Blue Light) metoprolol succinate 25 mg 20 mg PO BID 10/11/25 10/11/25 History tablet,extended release 24 hr psyllium husk 3.4 gram/5.4 gram 3 tbsp PO DAILY PRN Constipation 10/11/25 10/11/25 History oral powder (Metamucil) sulfamethoxazole 800 0.5 tab PO QPM 10/11/25 10/11/25 History mg-trimethoprim 160 mg tablet (Bactrim DS) torsemide 20 mg tablet 40 mg PO QAM 10/11/25 10/11/25 History zinc oxide 10 % topical cream 1 applic topical BID 10/11/25 10/11/25 History Past Med/Surg History Problem List (Updated 10/11/25 @ 16:00 by Adam Gamez DO) Abnormal EKG (Acute) Fall (Acute) Anemia (Acute) Urinary tract infection (Acute) Generalized muscle weakness (Acute) Weakness CHF (congestive heart failure) (Acute) UTI (urinary tract infection) (Acute) Paroxysmal supraventricular tachycardia (Acute) New onset left bundle branch block (LBBB) (Acute) ESRD on hemodialysis (Acute) Elevated troponin (Acute) Chest pain (Acute) Urinary retention New onset left bundle branch block (LBBB) Right coronary artery occlusion ASCVD (arteriosclerotic cardiovascular disease) Aortic stenosis Chest pain at rest ESRD on hemodialysis Chronic hypoxic respiratory failure, on home oxygen therapy Chronic heart failure with preserved ejection fraction Hypertension, uncontrolled Anemia, chronic renal failure Elevated brain natriuretic peptide (BNP) level (Acute) Non-ST elevation RI (NSTEMI) (Acute) Anemia (Acute) Chest pain (Acute) Pleural effusion (Acute) CHF (congestive heart failure) (Acute) Flash pulmonary edema Bradycardia Encephalopathy acute Acute on chronic renal failure Aortic stenosis, moderate Acute heart failure with preserved ejection fraction Acute on chronic heart failure with normal ejection fraction BPH (benign prostatic hyperplasia) Hx of gout Hx of cancer of lung Chronic diastolic heart failure Hypertensive urgency SOB (shortness of breath) Palpitations Dyspnea (Acute) Brain TIA (Acute) Confusion (Acute) Expressive aphasia (Acute) Encephalopathy (Acute) TIA (transient ischemic attack) BPH loc w urin obs/LUTS Encounter for pre-operative examination HLD (hyperlipidemia) AAA (abdominal aortic aneurysm) GI bleed Chest pain Precordial chest pain (Acute) Anemia (Acute) Acute GI bleeding (Acute) Elevated troponin (Acute) Anemia recently admitted to [facility] for this GERD (gastroesophageal reflux disease) HTN (hypertension) (Acute) CAD (coronary atherosclerotic disease) "S/P LAD stent" Medical History Acute kidney injury superimposed on chronic kidney disease COVID-19 History of GI bleed 07/25/22, pt recently admitted to [facility] for gi bleed. pt "unsure of all the details, but know that I was anemic and had a couple pints of blood." Poor historian Hearing deficit bilat CORREA's Stomach ulcer pt "thinks it's gone now" Arthritis TIA (transient ischemic attack) X 2 "a few years ago was last one" Surgical History History of colonoscopy History of tooth extraction History of tonsillectomy and adenoidectomy H/O heart artery stent X 4 (? DATE-"maybe 5 years ago" "LAST 2 STENTS PLACED AT [facility], OTHER 2 AT [facility]") S/P lobectomy of lung History of left-sided carotid endarterectomy H/O aortic aneurysm repair 2013 AT [facility] Family History Other No family history of adverse response to anesthesia No significant family history Social History Smoking Status: Former smoker Tobacco Type: Cigarettes Second Hand Exposure: No; Do You Dip or Chew Tobacco: No; Hx Alcohol Use: No Hx Substance Use: No Preferred Language: Cypriot Communication Ability: Effective Can Cleaner Required: No Beliefs That Will Affect Care: None Current Living Situation: Personal Care Facility Current Living Situation Comment: [facility] How many Children do You have: 1 Feels Safe at Home: Yes Assistive Devices: Walker Review of Systems Review of Systems: Neuro: (-) Falls, trauma, slurred speech HEENT: (-) CORREA, dizziness, dysphagia, visual or auditory changes CV: (-) CP, palpitations, swelling Resp: (-) SOB GI: (-) appetite changes, N/V/D, bowel changes : (-) urinary changes Skin: (-) rashes Right hand skin tear Psych: (-) anxiety, depression Physical Exam Physical Exam: Neuro: AAOx4, PERRLA, no aphagia, memory changes, CNII-XII grossly intact HEENT: head normocephalic, moist mucus membranes CV: S1/S2, (-) M/G/R, (-) edema, cap refill < 3 seconds Resp: Lungs crackles posterior; on 2LNC. GI: Abdomen S/NT/ND, Ax4 bowel sounds, (-) CVA tenderness Musculoskeletal: 5/5 B/L UE strength, 5/5 B/L LE strength. R hand skin tear Skin: (-) rashes , (-) erythema. Psych: euthymic mood Results & Data Results & Data Vital Signs (Past 12 Hours) Vital Signs Temp Pulse Pulse Resp BP BP Pulse Ox 10/11/25 13:00 93 10/11/25 12:42 78 16 96 10/11/25 12:30 79 15 97 10/11/25 12:21 78 17 151/87 H 100 10/11/25 12:12 78 15 98 10/11/25 12:08 76 10/11/25 12:00 18 97 10/11/25 11:51 80 17 92 10/11/25 11:48 76 21 93 10/11/25 11:14 37.1 C 76 16 142/78 H 96 O2 Del Method O2 Flow Rate 10/11/25 13:00 10/11/25 12:42 10/11/25 12:30 10/11/25 12:21 10/11/25 12:12 10/11/25 12:08 10/11/25 12:00 10/11/25 11:51 10/11/25 11:48 10/11/25 11:14 Nasal Cannula 2 Laboratory Results Short CBC 10/11/25 Range/Units 12:08 WBC 9.81 (4.8-10.8) K/ul Hgb 7.8 L (14.0-18.0) g/dL Hct 23.2 L (42.0-52.0) % Plt Count 285 (130-400) K/uL BMP 10/11/25 12:08 Sodium 137 Potassium 3.8 Chloride 100 Carbon Dioxide 26 BUN 41 H Creatinine 6.21 H* Glucose 107 H Calcium 9.4 Cardiac Enzymes 10/11/25 Range/Units 12:08 Total Creatine Kinase 77 (30-223) U/L Liver Function 10/11/25 Range/Units 12:08 Total Bilirubin 0.5 (0.2-1.0) mg/dl AST 16 (13-39) U/L ALT 9 (7-52) U/L Alkaline Phosphatase 71 (34-104) U/L Albumin 3.5 (3.4-5.0) gm/dl Urine 10/11/25 Range/Units 12:55 Urine Color Yellow Urine Appearance Turbid A (Clear) Urine pH 6.0 (4.5-7.5) Ur Specific [place] 1.016 (1.000-1.030) Urine Protein 2+ H (Negative) Urine Glucose (UA) Negative (Negative) Diagnostic Findings Cervical Spine CT 10/11/25 11:36 CT SCAN OF THE CERVICAL SPINE CLINICAL HISTORY: Neck pain status post trauma COMPARISON STUDY: CT angiography neck dated 01/16/2023 TECHNIQUE: CT scan of the cervical spine is performed from the skull base to the upper thoracic spine. Images are reviewed in the axial, sagittal, and coronal planes. IV contrast was not administered for this examination. A dose lowering technique was utilized adhering to the principles of ALARA. CT DOSE: FINDINGS: Prevertebral soft tissues are normal. No acute fractures or traumatic subluxations are visualized. There are multilevel degenerative changes present. Minimal anterolisthesis of C4 on C5 is felt to be degenerative. There is moderate disc space narrowing at the C6-7 level. There is no CT evidence of paraspinal hematoma. Visualized portions the lung apices reveal mild septal edema and emphysema. There are bilateral pleural effusions. There is no pathologic cervical lymphadenopathy. IMPRESSION: 1. Multilevel degenerative change. No acute fractures or traumatic subluxations identified. 2. Bilateral pleural effusions, emphysema, and mild septal edema. ACT 112: Negative or not required by law. Electronically signed by: Erwin Bhakta M.D. 10/11/2025 1:26 PM Chest X-Ray 10/11/25 11:36 XR chest 1V portable CLINICAL HISTORY: weakness COMPARISON STUDY: 10/06/2025 FINDINGS: Stable dialysis catheter. Stable surgical clips overlying the left mediastinum. Stable cardiomegaly with pulmonary vascular congestion. Stable diffuse pulmonary interstitial opacity. Stable blunting of the costophrenic angles. Stable pleural thickening at the left lung apex. No pneumothorax. Stable old healed left mid rib fracture. IMPRESSION: Stable findings of CHF with possible small pleural effusions. ACT 112: Negative or not required by law. Electronically signed by: Prashant Aguirre M.D. 10/11/2025 12:[address] 10/11/25 11:36 CT SCAN OF THE BRAIN WITHOUT IV CONTRAST CLINICAL HISTORY: Fall. COMPARISON STUDY: Head CT January 06, 2025. MRI of the brain January 17, 2023. TECHNIQUE: Unenhanced axial CT scan of the brain was performed from the vertex to the skull base. A dose lowering technique was utilized adhering to the principles of ALARA. CT DOSE: 1213.24 mGy.cm FINDINGS: Brain parenchyma: No acute intracranial hemorrhage, midline shift or mass effect is present. Saxena-white matter differentiation is preserved. There are no extra- axial fluid collections. There are no findings to suggest acute dural sinus thrombosis or acute territorial infarct. White matter hypodensities are similar to prior exam and favor small vessel disease. Ventricles, sulci, cisterns: Ventricular dilatation is unchanged and likely related to atrophy. The basal cisterns are patent. Calvarium: Unremarkable. Sinuses and mastoids: The visualized paranasal sinuses are clear. The mastoid air cells are well pneumatized. Orbits: The bony orbits are grossly intact. IMPRESSION: 1. No acute intracranial findings. 2. No calvarial fractures. ACT 112: Negative or not required by law. Electronically signed by: Blair Robles M.D. 10/11/2025 1:12 PM Pelvis X-Ray 10/11/25 11:36 XR pelvis 1-2V routine CLINICAL HISTORY: fall COMPARISON: None FINDINGS: Skin fold artifact overlies the hips and bowel artifact overlies the pelvis. No fracture or dislocation seen. There are degenerative changes at the hips and lower lumbar spine. IMPRESSION: No pelvic fracture seen. ACT 112: Negative or not required by law. Electronically signed by: Prashant Aguirre M.D. 10/11/2025 12:01 PM Hand X-Ray 10/11/25 11:37 XR hand RT min 3V routine CLINICAL HISTORY: fall COMPARISON: None FINDINGS: No acute fracture or dislocation seen. IMPRESSION: No fracture seen. ACT 112: Negative or not required by law. Electronically signed by: Prashant Aguirre M.D. 10/11/2025 12:02 PM Code Status & VTE Plan Code Status DNR/DNI in the event of cardiac or respiratory arrest Supervising Physician Co-Signing Physician Notes 85 yo M w/ PMH of ASCVD, s/p remote PCI of the LAD mid LAD with in-stent restenosis x 2, HFpEF, aortic valve stenosis, PAD, history of TIA status post left carotid endarterectomy, AAA status post repair, ESRD on HD, HTN, HLD, history of lung cancer left lower lobe lung resection, COPD, chronic respiratory failure on 2 L supplemental O2, anemia of chronic disease presented w/ c/o weakness and fall. Patient also reports having some shortness of breath. He missed dialysis yesterday. Patient is volume overloaded in the setting of missed dialysis today leading to shortness of breath, no BLE edema noted. Nephro consult, plan for short HD today and possible repeat HD in AM. 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 Will continue with Rocephin, if urine culture negative can DC antibiotic. Exchange Liu. On exam: Patient on 2 L oxygen, bilateral mid and basilar lung crackles, right hand with clean dressing without soakage. No cervical/shoulder girdle/chest/pelvic girdle compression tenderness. Rest of the examination as above. Total time spent independently: 24 minutes. I have seen and examined the patient and have discussed the case with the provider above. I agree with the assessment and plan as stated. (2) UTI (urinary tract infection) Indwelling urinary catheter type: indwelling urethral catheter Urinary tract infection type: catheter-associated UTI
--- NOTE | 2025-10-11 14:36 | Nephrology Consultation ---
Date of Consultation October 11, 2025 Assessment & Plan (1) ESRD on hemodialysis: will do 2 hr tx today to make up for missed tx yesterday after a weekend; plan routine HD tomorrow as well no heparin in HD today given fall epo 20K w/ HD in this cardiac pt >> some of his anemia may be dilutional -daily bmp, cbc -have ordered iron panel for am (2) CHF (congestive heart failure): will do some extra UF as toelrated continue cardiac meds History of Present Illness Reason for Consultation: ESRD on HD Requesting Physician: Dr Langston Attending Physician: Dr Langston History of Present Illness 85 y/o M whom I'm asked to see for ESRD was admitted today for complex UTI after a fall and w/ missed HD. PMH includes ESRD on HD via [facility] at [facility] under my care, ASCVD s/p remote LAD PCI w/ instent restenosis x 2, aortic valve stenosis, PAD, history of TIA status post left carotid endarterectomy, AAA status post repair, history of lung cancer left lower lobe lung resection, COPD, chronic respiratory failure on 2 L supplemental O2, HL, chronic urinary retention w/ chronic liu since at least August. Patient was recently admitted from 08/21/25-08/25/25 for chest pain and SVT. He slipped out of bed in the dark at his facility looking for his call [place]; landed on his knees; no head stroke, no LOC. Did have emesis x 1 [address] floor and feels nauseous currently. No chest pain or palpitations. tells me he remained on floor x 5 hours. Has R hand laceration bandaged; not sure what happened w/ this. he is being evaluated/treated for complex UTI and cardiac monitoring. he was started on rocephin. he had 80 mg IV lasix x 1. Last HD was Sunday 10/07. Stable chronic dyspnea. no current chest pain or palpitations; does not believe he's had changes in liu output recently. no cough or wheeze. no edema. no pain in his knees or wrists or back. Allergies Allergy/AdvReac Type Severity Reaction Status Date / Time Penicillins Allergy Intermediate Rash Verified 10/11/25 15:08 Home Medications Medication Instructions Recorded Confirmed Type allopurinol 100 mg tablet 100 mg PO WK 08/24/21 10/11/25 History cholecalciferol (vitamin D3) 50 50 mcg PO QAM 08/24/21 10/11/25 History mcg (2,000 unit) tablet (Vitamin D3) clopidogrel 75 mg tablet 75 mg PO QAM 08/24/21 10/11/25 History aspirin 81 mg tablet,delayed 81 mg PO 3XWK 01/02/24 10/11/25 History release albuterol sulfate 90 mcg/actuation 2 puff inhalation Q6H PRN 03/18/25 10/11/25 History aerosol inhaler Cough/Wheezing bisacodyl 10 mg rectal suppository 10 mg FL Q24H PRN Constipation 03/18/25 10/11/25 History famotidine 10 mg tablet 10 mg PO HS 03/18/25 10/11/25 History fluticasone fur. 100 mcg-umeclid 1 inh inhalation QPM 03/18/25 10/11/25 History 62.5 mcg-vilant 25 mcg inhalat.powder (Trelegy Ellipta) lidocaine HCl 4 %-menthol 1 % 1 applic topical Q8H PRN Pain 03/18/25 10/11/25 History topical cream (Icy Hot Max (lidocaine HCl-menthol)) nitroglycerin 0.4 mg sublingual 0.4 mg sublingual DIRECTED PRN 03/18/25 10/11/25 History tablet Chest Pain ondansetron HCl 4 mg tablet 4 mg PO DAILYBB 03/18/25 10/11/25 History sennosides 8.6 mg-docusate sodium 1 tab-cap PO HS 03/18/25 10/11/25 History 50 mg tablet (Senna Plus) tamsulosin 0.4 mg capsule 0.4 mg PO DAILY 03/18/25 10/11/25 History calcium carbonate 500 mg PO Q6H PRN Indigestion 08/21/25 10/11/25 History hydrocortisone 2.5 % topical cream 1 applic topical Q6H PRN Rectal 08/21/25 10/11/25 History with perineal applicator Pain/Itchiness (Procto-Med HC) atorvastatin 10 mg tablet 10 mg PO [id number]@2100 #30 tabs 08/24/25 10/11/25 Rx calcium carbonate (Tums) 250 mg (1.25 x 200 mg calcium (500 08/24/25 10/11/25 Rx mg)) PO QID PRN dyspepsia #30 tabs melatonin 3 mg tablet 3 mg PO HS PRN sleep #30 tabs 08/24/25 10/11/25 Rx pantoprazole 40 mg tablet,delayed 40 mg PO QAM #30 tabs 08/24/25 10/11/25 Rx release ranolazine 500 mg tablet,extended 500 mg PO BID #30 tabs 08/24/25 10/11/25 Rx release,12 hr acetaminophen 325 mg tablet 650 mg PO Q4H PRN PAIN/TEMP >100F 10/11/25 10/11/25 History (Tylenol) amlodipine 5 mg tablet 5 mg PO DAILY 10/11/25 10/11/25 History atorvastatin 10 mg tablet 10 mg PO HS 10/11/25 10/11/25 History ipratropium 0.5 mg-albuterol 3 mg 3 ml inhalation Q8H PRN 10/11/25 10/11/25 History (2.5 mg base)/3 mL nebulization CONGESTION/WHEEZING soln isosorbide mononitrate 60 mg 60 mg PO QAM 10/11/25 10/11/25 History tablet,extended release 24 hr lutein 25 mg-zeaxanthin 5 mg 1 cap PO 3XWK 10/11/25 10/11/25 History capsule (Ocuvite Blue Light) metoprolol succinate 25 mg 20 mg PO BID 10/11/25 10/11/25 History tablet,extended release 24 hr psyllium husk 3.4 gram/5.4 gram 3 tbsp PO DAILY PRN Constipation 10/11/25 10/11/25 History oral powder (Metamucil) sulfamethoxazole 800 0.5 tab PO QPM 10/11/25 10/11/25 History mg-trimethoprim 160 mg tablet (Bactrim DS) torsemide 20 mg tablet 40 mg PO QAM 10/11/25 10/11/25 History zinc oxide 10 % topical cream 1 applic topical BID 10/11/25 10/11/25 History Patient History Medical History Acute kidney injury superimposed on chronic kidney disease COVID-19 History of GI bleed 07/25/22, pt recently admitted to [facility] for gi bleed. pt "unsure of all the details, but know that I was anemic and had a couple pints of blood." Poor historian Hearing deficit bilat CORREA's Stomach ulcer pt "thinks it's gone now" Arthritis TIA (transient ischemic attack) X 2 "a few years ago was last one" Surgical History History of colonoscopy History of tooth extraction History of tonsillectomy and adenoidectomy H/O heart artery stent X 4 (? DATE-"maybe 5 years ago" "LAST 2 STENTS PLACED AT [facility], OTHER 2 AT [facility]") S/P lobectomy of lung History of left-sided carotid endarterectomy H/O aortic aneurysm repair 2013 AT [facility] Family History Other No family history of adverse response to anesthesia No significant family history Social History Smoking Status: Former smoker Tobacco Type: Cigarettes Second Hand Exposure: No; Do You Dip or Chew Tobacco: No; Tobacco Cessation Education Requested by Patient: No Hx Alcohol Use: No Hx Substance Use: No Preferred Language: Italian Communication Ability: Effective Communication Ability Comment: 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: No Beliefs That Will Affect Care: None Current Living Situation: Group Home Current Living Situation Comment: [facility] How many Children do You have: 1 Other Information That Helps Us Care for You: No Feels Safe at Home: Yes Safety Concerns: Feels Safe At This Time Assistive Devices: Glasses Review of Systems 2 Review of Systems: All systems reviewed & are unremarkable except as noted in HPI & below Physical Exam 2 Constitutional: well developed, well nourished, + frail appearing and cooperative; no acute distress Eyes: EOM intact bilaterally ENMT: Mouth: + dry oral mucous membranes Respiratory: normal respiratory effort Auscultation: + diminished lung sounds Cardiovascular: Rate/Rhythm: regular rate and regular rhythm Extremities: + AV fistula (RUE + t/b); no edema Gastrointestinal (Abdomen): Inspection/Auscultation: normal bowel sounds P ercussion/Palpation: abdomen soft; abdomen nontender Musculoskeletal: Extremities: strength 5/5 throughout Skin: no rashes, warm and dry Neurologic: larson, fluent speech, no tremor, marked generalized weakness Psychiatric: a& 0 x 3 but some mild confusion on details of his care Results & Data Vital Signs (Past 12 Hours) Vital Signs Temp Pulse Pulse Resp BP BP Pulse Ox 10/11/25 13:00 93 10/11/25 12:42 78 16 96 10/11/25 12:30 79 15 97 10/11/25 12:21 78 17 151/87 H 100 10/11/25 12:12 78 15 98 10/11/25 12:08 76 10/11/25 12:00 18 97 10/11/25 11:51 80 17 92 10/11/25 11:48 76 21 93 10/11/25 11:14 37.1 C 76 16 142/78 H 96 O2 Del Method O2 Flow Rate 10/11/25 13:00 10/11/25 12:42 10/11/25 12:30 10/11/25 12:21 10/11/25 12:12 10/11/25 12:08 10/11/25 12:00 10/11/25 11:51 10/11/25 11:48 10/11/25 11:14 Nasal Cannula 2 Laboratory Results 10/11/25 12:08 10/11/25 12:08 Diagnostic Findings cxr HF and possible small bl pl effusions
[2025-10-11] MEDS ORDERED: SODIUM CHLORIDE 0.9% 1,000 ML IV PRN (14:45)
[2025-10-11] MEDS ORDERED: ALBUTEROL HFA 8 GM INHALER INH PRN (15:22)
[2025-10-11] MEDS ORDERED: ALBUT/IPRATROP 3MG/0.5MG NEB 3 ML VIAL INH PRN (15:45)
[2025-10-11] MEDS ORDERED: PSYLLIUM HUSK 4GM PACKET PO PRN (15:56)
[2025-10-11 16:07] LABS: Influenza A virus by PCR Negative (Neg); Influenza B virus by PCR Negative (Neg); SARS CoV2 RNA(COVID-19) Ceph NEGATIVE (Negative)
[2025-10-11 16:10] LABS: Hep B Surface Ag with confirm Negative (Negative)
[2025-10-11] MEDS: EPOETIN ALFA 20,000 UNITS/ML VIAL IV ONE (17:03)
[2025-10-11] MEDS ORDERED: MAGNESIUM HYDROXIDE SUSP 30 ML UDC PO PRN (18:58)
[2025-10-11] MEDS ORDERED: ONDANSETRON INJ 2 MG/ML 2 ML VIAL IV PRN (18:58)
[2025-10-11] MEDS ORDERED: ALUMINUM/MAGNESIUM SUSP 30 ML UDC PO PRN (18:58)
[2025-10-11] MEDS ORDERED: ACETAMINOPHEN 325 MG TAB PO PRN (18:58)
[2025-10-11] MEDS ORDERED: POLYETHYLENE (MIRALAX) 17 GM PACK PO PRN (18:58)
[2025-10-11] MEDS: DOCUSATE SODIUM/SENNA 50/8.6MG TAB PO SCH (20:34)
[2025-10-11] MEDS: ATORVASTATIN 10 MG TAB PO SCH (20:34)
[2025-10-11] MEDS: METOPROLOL SUCC 25MG EXT REL TAB PO SCH (20:34)
[2025-10-11] MEDS: RANOLAZINE 500 MG ER TAB PO SCH (20:34)
[2025-10-11] MEDS ORDERED: NON-FORMULARY MEDICATION (Fluticasone-Umeclidin-Vilanter [Trelegy Ellipta] 100-62.5-25 mcg INH SCH (21:00)
[2025-10-12] MEDS ORDERED: SODIUM CHLORIDE 0.9% 1,000 ML IV PRN (07:00)
[2025-10-12 07:16] LABS: Hematocrit (blood only) 24.0 % (42.0-52.0); Hemoglobin 7.7 g/dL (14.0-18.0); Mean Corpuscular Hemoglobin 33.6 pg (25.0-34.0); Mean Corpuscular Volume 104.8 fL (80.0-100.0); Platelet Count 260 K/uL (130-400); RDW Standard Deviation 70.1 fL (36.4-46.3); Red Blood Count 2.29 M/uL (4.70-6.10); White Blood Count 6.65 K/ul (4.8-10.8)
[2025-10-12 07:44] LABS: Iron 39.0 mcg/dl (35-175); Transferrin 126.0 mg/dl (200-360)
--- NOTE | 2025-10-12 07:44 | XRay Report ---
EXAM: XR chest 1V portable CLINICAL HISTORY: Volume overload TECHNIQUE: An X-ray image of the chest was obtained in AP portable rojection. COMPARISON: 10/06/2025 CR. FINDINGS: A right central venous catheter, with the tip at the distal SVC/cavoatrial junction, is noted. Pulmonary Parenchyma: Ill-defined airspace opacification with hilar and bronchovascular prominence is noted, involving both lungs. This is suggestive of evolving pulmonary edema or infection. Blunting of both costophrenic angles suggests pleural effusion. Heart and Mediastinum: Cardiomegaly is seen. No mediastinal widening or masses are present. There is no hilar or mediastinal lymphadenopathy. Bony Thorax: The bony thorax appears intact, without fractures or deformities. Sternotomy sutures are in situ. Soft Tissues: The soft tissues overlying the chest wall are unremarkable. Multiple metallic clips are identified in the left axilla. Chest leads are seen in situ. IMPRESSION: 1. Ill-defined airspace opacification with hilar and bronchovascular prominence is noted, involving both lungs, suggestive of evolving pulmonary edema or infection, with interval increase. 2. Blunting of both costophrenic angles suggests pleural effusion, newly developed. 3. Right central venous catheter with tip at the distal SVC/cavoatrial junction. Electronically signed by Bob Reynolds 10-12-2025 07:44 AM
[2025-10-12 07:45] LABS: Anion Gap 10.0 (3-11); Blood Urea Nitrogen 27.0 mg/dl (6-23); Calcium 9.1 mg/dl (8.6-10.3); Carbon Dioxide 28.0 mmol/L (21-32); Chloride 99.0 mmol/L (98-107); Cholesterol 119.0 mg/dl (0-200); Creatinine Clr Calc Pharmacy 11.1 ml/min; Glucose 80.0 mg/dl (70-99(Fasting)); HDL Cholesterol 43.0 mg/dl; Magnesium 2.2 mg/dl (1.7-2.4); Potassium 3.8 mmol/L (3.5-5.1); Sodium 137.0 mmol/L (136-145); Triglycerides 131.0 mg/dl (0-150)
[2025-10-12 07:46] LABS: Total Iron Binding Cap Calc 176.0 mcg/dl (250-450)
[2025-10-12 07:49] LABS: Transferrin (FE) Percent Satur 22.0 % (20-50)
[2025-10-12] MEDS: FLUTICASONE FUROATE 100MCG 14 PUFFS/INHALER INH SCH (08:31)
[2025-10-12] MEDS: CLOPIDOGREL BISULFATE 75 MG TAB PO SCH (08:31)
[2025-10-12] MEDS: ASPIRIN 81 MG ECTAB PO SCH (08:31)
[2025-10-12] MEDS: ISOSORBIDE MONO EXTENDED REL 60 MG TABCR PO SCH (08:32)
[2025-10-12] MEDS: TAMSULOSIN HCL 0.4 MG CAP PO SCH (08:32)
[2025-10-12] MEDS: UMECLIDINIUM/VILANTEROL 62.5/25MCG 7 PUFFS/INHALER INH SCH (08:33)
--- NOTE | 2025-10-12 12:04 | Hospitalist Progress Note ---
Date of Service October 12, 2025 Assessment & Plan (1) UTI (urinary tract infection) due to urinary indwelling Albert catheter: (2) Fall from standing: (3) Generalized muscle weakness: (4) BPH with obstruction/lower urinary tract symptoms: (5) ESRD on hemodialysis: (6) Anemia, chronic renal failure: (7) Paroxysmal supraventricular tachycardia: (8) Aortic stenosis: (9) Chronic hypoxic respiratory failure, on home oxygen therapy: (10) Chronic heart failure with preserved ejection fraction: Plan Patient 85-year-old gentleman thyroid stage renal disease on chronic hemodialysis and chronic bladder outlet obstruction from BPH and chronic indwelling Albert presented after acute weakness and fall at his place of living. Concern for possible urinary tract infection. Urine culture reviewed, follow for final results, continue Rocephin, patient seems to be responding Therapies Continue hemodialysis as directed by nephrology [facility] [place] Case management for return to previous place of living Admission and Anticipated Discharge Date Admission Date: October 11, 2025 Subjective Patient states he is feeling improved. Physical Exam Physical Exam: Constitutional: Alert, nontoxic HEENT: Mucous membranes moist. Lungs: Decreased breath sounds, prolonged expiratory phase, few crackles at bases CV: S1-S2, regular Abdomen: Soft, nontender, nondistended, : Chronic indwelling Albert Extremities: No significant edema Neuro: No focal deficits, generally weak Psych: Cooperative, normal mood Results & Data Results & Data Vital Signs (Past 12 Hours) Vital Signs Temp Pulse Pulse Pulse Resp BP BP 10/12/25 11:30 76 133/55 L 10/12/25 11:00 83 134/72 10/12/25 10:30 79 143/71 H 10/12/25 10:00 78 139/69 10/12/25 09:52 77 139/72 10/12/25 09:46 36.8 C 76 10/12/25 09:45 74 10/12/25 08:00 10/12/25 07:55 36.6 C 75 16 139/70 10/12/25 02:50 36.5 C 77 18 146/74 H Pulse Ox O2 Del Method O2 Flow Rate 10/12/25 11:30 10/12/25 11:00 10/12/25 10:30 10/12/25 10:00 10/12/25 09:52 10/12/25 09:46 10/12/25 09:45 10/12/25 08:00 Nasal Cannula 3 10/12/25 07:55 98 Room Air 10/12/25 02:50 98 Nasal Cannula 2 Diagnostic Findings Reviewed imaging, laboratory and diagnostic studies. Pertinent findings as below. Urine culture pinpoint growth WBC 6.6 Hemoglobin 7.7 Renal panel reviewed as expected for end-stage renal disease, stable Troponins reviewed, chronically elevated
[2025-10-12] MEDS: EPOETIN ALFA 20,000 UNITS/ML VIAL IV ONE (12:45)
[2025-10-12] MEDS: TORSEMIDE 20 MG TAB PO SCH (14:37)
[2025-10-12] MEDS: cefTRIAXone SODIUM 2,000 MG/50 ML BAG IV SCH (14:38)
--- NOTE | 2025-10-12 17:31 | Dialysis Progress Note ---
Date of Service October 12, 2025 Assessment & Plan (1) ESRD on hemodialysis: Plan: routine HD today >> got 2.3 L; on 10/12 had 1.5 L UF next HD on 10/14 or as needs dictate no heparin in HD given fall/anemia epo 20K w/ HD in this cardiac pt >> some of his anemia may be dilutional; low threshold to transfuse if hgb goes much lower than current 7.7 in pt with active CAD; iron stores adequate at 22% -daily bmp, cbc updated primary service about pt long hx of sacral pain/?bedsore (2) CHF (congestive heart failure): Plan: will do some extra UF as toelrated continue cardiac meds Admission and Anticipated Discharge Date Admission Date: October 11, 2025 Subjective seen and evaluated midday on dialysis; breathing better; c/o significant butt pain; denies other musculoskeletal pain Review of Systems 2 Review of Systems: All systems reviewed & are unremarkable except as noted in Subjective Physical Exam 2 Constitutional: well developed, well nourished, + frail appearing and cooperative; no acute distress Eyes: EOM intact bilaterally ENMT: Mouth: + dry oral mucous membranes Respiratory: normal respiratory effort Auscultation: + diminished lung sounds Cardiovascular: Rate/Rhythm: regular rate and regular rhythm Extremities: + AV fistula (RUE + t/b); no edema Gastrointestinal (Abdomen): Inspection/Auscultation: normal bowel sounds P ercussion/Palpation: abdomen soft; abdomen nontender Musculoskeletal: Extremities: strength 5/5 throughout Skin: no rashes, warm and dry Results & Data Vital Signs (Past 12 Hours) Vital Signs Temp Pulse Pulse Pulse Resp BP BP 10/12/25 15:46 36.9 C 81 16 150/75 H 10/12/25 14:49 85 144/84 H 10/12/25 14:06 36.8 C 87 145/75 H 10/12/25 13:00 79 127/68 10/12/25 12:30 83 147/64 H 10/12/25 12:00 59 L 138/75 10/12/25 11:30 76 133/55 L 10/12/25 11:00 83 134/72 10/12/25 10:30 79 143/71 H 10/12/25 10:00 78 139/69 10/12/25 09:52 77 139/72 10/12/25 09:46 36.8 C 76 10/12/25 09:45 74 10/12/25 08:00 10/12/25 07:55 36.6 C 75 16 139/70 Pulse Ox O2 Del Method O2 Flow Rate 10/12/25 15:46 97 Nasal Cannula 2 10/12/25 14:49 10/12/25 14:06 10/12/25 13:00 10/12/25 12:30 10/12/25 12:00 10/12/25 11:30 10/12/25 11:00 10/12/25 10:30 10/12/25 10:00 10/12/25 09:52 10/12/25 09:46 10/12/25 09:45 10/12/25 08:00 Nasal Cannula 3 10/12/25 07:55 98 Room Air Laboratory Results 10/12/25 07:00 10/12/25 07:00
[2025-10-12] MEDS ORDERED: ATORVASTATIN 10 MG TAB PO SCH (21:00)
[2025-10-13 10:29] LABS: Anion Gap 13.0 (3-11); Blood Urea Nitrogen 17.0 mg/dl (6-23); Calcium 9.3 mg/dl (8.6-10.3); Carbon Dioxide 25.0 mmol/L (21-32); Chloride 99.0 mmol/L (98-107); Creatinine Clr Calc Pharmacy 13.6 ml/min; Glucose 111.0 mg/dl (70-99(Fasting)); Magnesium 2.1 mg/dl (1.7-2.4); Potassium 3.6 mmol/L (3.5-5.1); Sodium 137.0 mmol/L (136-145)
--- NOTE | 2025-10-13 12:56 | Hospitalist Progress Note ---
Date of Service October 13, 2025 Assessment & Plan (1) UTI (urinary tract infection) due to urinary indwelling Albert catheter: (2) Fall from standing: (3) Generalized muscle weakness: (4) BPH with obstruction/lower urinary tract symptoms: (5) ESRD on hemodialysis: (6) Anemia, chronic renal failure: (7) Paroxysmal supraventricular tachycardia: (8) Aortic stenosis: (9) Chronic hypoxic respiratory failure, on home oxygen therapy: (10) Chronic heart failure with preserved ejection fraction: (11) Elevated troponin: (12) Decubitus ulcer of buttock: Plan: Present on admission Plan 85-year-old gentleman with fall from standing and muscle weakness due to suspected urinary tract infection from indwelling Albert catheter Patient showing significant improvement, continue Rocephin through 3 doses, await final cultures Continue hemodialysis as directed by nephrology Consult wound care for recommendations on management of decubitus ulcer, this is present on admission, chronic in the setting of limited mobility. Communication with case management coordinating return to [facility] tomorrow Updated patient's [id number], [place]. Answered questions, aware of probable discharge tomorrow Admission and Anticipated Discharge Date Admission Date: October 11, 2025 Subjective Patient feeling significantly improved. Feels that he would be able to go back to his previous place of living. When asked states that he has had a ulcer on his buttocks for months but it is somewhat sore and painful. Physical Exam Physical Exam: Constitutional: Alert, nontoxic HEENT: Mucous membranes moist. Lungs: Clear to auscultation, decreased, no wheezes rales or rhonchi CV: S1-S2, regular Abdomen: Soft, nontender, nondistended Skin: Patient does have a stage II ulceration on the left buttock, present on admission Extremities: No significant edema Neuro: No focal deficits Psych: Cooperative, normal mood Results & Data Results & Data Vital Signs (Past 12 Hours) Vital Signs Temp Pulse Resp BP Pulse Ox O2 Del Method O2 Flow Rate 10/13/25 11:47 36.4 C L 80 18 106/65 99 Nasal Cannula 2 10/13/25 08:23 36.5 C 71 18 156/73 H 98 Room Air Diagnostic Findings Reviewed imaging, laboratory and diagnostic studies. Pertinent findings as below. Initial review of urine cultures with pinpoint growth, now growing significant colonies, identification pending
[2025-10-13] MEDS ORDERED: SODIUM CHLORIDE 0.9% 1,000 ML IV PRN (20:28)
--- NOTE | 2025-10-13 20:28 | Nephrology Progress Note ---
Date of Service October 13, 2025 Assessment & Plan (1) ESRD on hemodialysis: Plan: routine HD 10/12 >> got 2.3 L; on 10/12 had 1.5 L UF next HD on 10/14 for routine care no heparin in HD given fall/anemia again epo 20K w/ HD in this cardiac pt >> some of his anemia may be dilutional; low threshold to transfuse if hgb goes much lower than current 7.7 in pt with active CAD; iron stores adequate at 22% -daily bmp, cbc long hx of sacral pain/?bedsore >> monitor (2) CHF (congestive heart failure): Plan: will do some extra UF as tolerated continue cardiac meds Admission and Anticipated Discharge Date Admission Date: October 11, 2025 Subjective no acute interval events clinically. no sob; no cramps; no cough Review of Systems 2 Review of Systems: All systems reviewed & are unremarkable except as noted in Subjective Physical Exam 2 Constitutional: well developed, well nourished, + frail appearing and cooperative; no acute distress Eyes: EOM intact bilaterally ENMT: Mouth: + dry oral mucous membranes Respiratory: normal respiratory effort Auscultation: + diminished lung sounds Cardiovascular: Rate/Rhythm: regular rate and regular rhythm Extremities: + AV fistula (RUE + t/b); no edema Gastrointestinal (Abdomen): Inspection/Auscultation: normal bowel sounds P ercussion/Palpation: abdomen soft; abdomen nontender Musculoskeletal: Extremities: strength 5/5 throughout Skin: no rashes, warm and dry Results & Data Vital Signs (Past 12 Hours) Vital Signs Temp Pulse Resp BP Pulse Ox O2 Del Method O2 Flow Rate 10/13/25 15:42 36.6 C 74 18 146/71 H 94 Nasal Cannula 2 10/13/25 11:47 36.4 C L 80 18 106/65 99 Nasal Cannula 2 10/13/25 10:00 Nasal Cannula 3 Laboratory Results 10/12/25 07:00 10/13/25 09:25
[2025-10-14] MEDS ORDERED: SODIUM CHLORIDE 0.9% 1,000 ML IV PRN (07:00)
--- NOTE | 2025-10-14 08:16 | Electrocardiogram Report ---
Test Reason : Blood Pressure : */* mmHG Vent. Rate : 79 BPM Atrial Rate : 79 BPM P-R Int : 202 ms QRS Dur : 150 ms QT Int : 464 ms P-R-T Axes : 35 38 -12 degrees QTcB Int : 532 ms Normal sinus rhythm Right bundle branch block Cannot rule out Inferior infarct , age undetermined Abnormal ECG When compared with ECG of 11-Oct-2025 11:34, (unconfirmed) No significant change Confirmed by Reymundo Mckeon ([id number]) on 10/14/2025 8:16:28 AM Referred By: Carl Andrade Confirmed By: Reymundo Mckeon
--- NOTE | 2025-10-14 08:16 | Electrocardiogram Report ---
Test Reason : Blood Pressure : */* mmHG Vent. Rate : 79 BPM Atrial Rate : * BPM P-R Int : * ms QRS Dur : 144 ms QT Int : 462 ms P-R-T Axes : * 56 43 degrees QTcB Int : 529 ms Poor data quality, interpretation may be adversely affected Sinus rhythm Right bundle branch block Abnormal ECG When compared with ECG of 22-Aug-2025 06:41, Right bundle branch block is now Present Confirmed by Reymundo Mckeon ([id number]) on 10/14/2025 8:15:51 AM Referred By: Carl Andrade Confirmed By: Reymundo Mckeon
--- NOTE | 2025-10-14 08:47 | Discharge Summary ---
Discharge Summary Date of Service October 14, 2025 Principal Dx & Hospital Course #1 = Principal Diagnosis (1) UTI (urinary tract infection) due to urinary indwelling Liu catheter: Suspected (2) Fall from standing: (3) Generalized muscle weakness: (4) BPH with obstruction/lower urinary tract symptoms: (5) ESRD on hemodialysis: (6) Anemia, chronic renal failure: (7) Paroxysmal supraventricular tachycardia: (8) Aortic stenosis: (9) Chronic hypoxic respiratory failure, on home oxygen therapy: (10) Chronic heart failure with preserved ejection fraction: (11) Elevated troponin: (12) Decubitus ulcer of buttock: Present on admission Plan Patient is an 85-year-old gentleman resident of [facility] presented to the emergency room after a fall from standing and increasing muscle weakness. Patient has chronic indwelling Liu and after evaluation in the emergency room concerned that patient may have an acute urinary tract infection related to his Liu catheter. Patient was admitted to the hospital. Treated with antibiotics. Nephrology consultation was obtained for ongoing hemodialysis needs. With these interventions the patient's symptoms improved. He felt as though his strength was returning. Urine culture eventually grew out Elke. This is colonization and is not treated. He completed a 3-day course of ceftriaxone while here in the hospital for presumed bacterial urinary tract infection. His other chronic medical issues were stable. He continued his hemodialysis. It was noted that he did have some decubitus ulcers on his buttocks. This was evaluated by wound care. On the day of discharge she will complete hemodialysis and return to [facility] for ongoing rehabilitation. Notes For Next Care Provider Continue hemodialysis as scheduled Continue routine Liu care Medication Changes From Visit None Admission HPI Per Admitting Provider Mr. Pérez is an 85 year old male that presented to the ED with weakness and a fall that he had this morning at 0100. He reports that his legs became weak but denies any injuries from his fall. Denies LOC or hitting his head. He is a very pleasant and states that he did not go to his scheduled hemodialysis appointment yesterday because he was feeling unwell. Lengthy PMH including: ASCVD, s/p remote PCI of the LAD mid LAD with in-stent restenosis x 2, HFpEF, aortic valve stenosis, PAD, history of TIA status post left carotid endarterectomy, AAA status post repair, ESRD on HD, HTN, H LD, history of lung cancer left lower lobe lung resection, COPD, chronic respiratory failure on 2 L supplemental O2, anemia of chronic disease. Patient was recently admitted from 08/21/25-08/25/25 for chest pain and SVT. CXR suggesting small pleural effusions; stable CHF. Head CT, pelvic X-ray and hand x-ray negative. Most recent ECHO: 08/22/25; EF 55 to 60%, G1 DD X, mild MR/TR Patient will be admitted for further evaluation and management of his ESRD with a planned HD treatment today and for tomorrow, formal nephrology consult, exchange indwelling liu catheter, continue to treat for UTI with Rocephin; patient with PCN allergy but has tolerated Rocephin, repeat CXR in AM, PT/OT for weakness. Patient denies headache, dizziness, shortness of breath, chest pain, palpitations, no increased peripheral edema, no dizziness or lightheadedness, denies fever or chills. On examination, he does not appear to be in apparent distress. He is able to answer all questions. He denies SOB, but does appear winded with lengthy sentences. He does have crackles bilaterally on examination. No ankle or pedal edema. Previous tobacco use, denies alcohol use, denies recreational drug use. Resident of [facility] of [facility]. 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 Please see AP For further details. Admission Exam Per Admitting Provider See H&P Discharge Exam Constitutional: Alert HEENT: Mucous membranes moist. Lungs: Clear to auscultation, decreased, no wheezes rales or rhonchi CV: S1-S2, regular Abdomen: Soft, nontender, nondistended : Chronic indwelling Liu catheter Extremities: No significant edema Neuro: No focal deficits Psych: Cooperative, normal mood Updated Medication List Medication Instructions Recorded Confirmed Type allopurinol 100 mg tablet 100 mg PO WK 08/24/21 10/11/25 History cholecalciferol (vitamin D3) 50 50 mcg PO QAM 08/24/21 10/11/25 History mcg (2,000 unit) tablet (Vitamin D3) clopidogrel 75 mg tablet 75 mg PO QAM 08/24/21 10/11/25 History aspirin 81 mg tablet,delayed 81 mg PO 3XWK 01/02/24 10/11/25 History release albuterol sulfate 90 mcg/actuation 2 puff inhalation Q6H PRN 03/18/25 10/11/25 History aerosol inhaler Cough/Wheezing bisacodyl 10 mg rectal suppository 10 mg OK Q24H PRN Constipation 03/18/25 10/11/25 History famotidine 10 mg tablet 10 mg PO HS 03/18/25 10/11/25 History fluticasone fur. 100 mcg-umeclid 1 inh inhalation QPM 03/18/25 10/11/25 History 62.5 mcg-vilant 25 mcg inhalat.powder (Trelegy Ellipta) lidocaine HCl 4 %-menthol 1 % 1 applic topical Q8H PRN Pain 03/18/25 10/11/25 History topical cream (Icy Hot Max (lidocaine HCl-menthol)) nitroglycerin 0.4 mg sublingual 0.4 mg sublingual DIRECTED PRN 03/18/25 10/11/25 History tablet Chest Pain ondansetron HCl 4 mg tablet 4 mg PO DAILYBB 03/18/25 10/11/25 History sennosides 8.6 mg-docusate sodium 1 tab-cap PO HS 03/18/25 10/11/25 History 50 mg tablet (Senna Plus) tamsulosin 0.4 mg capsule 0.4 mg PO DAILY 03/18/25 10/11/25 History calcium carbonate 500 mg PO Q6H PRN Indigestion 08/21/25 10/11/25 History hydrocortisone 2.5 % topical cream 1 applic topical Q6H PRN Rectal 08/21/25 10/11/25 History with perineal applicator Pain/Itchiness (Procto-Med HC) atorvastatin 10 mg tablet 10 mg PO [id number] #30 tabs 08/24/25 10/11/25 Rx calcium carbonate (Tums) 250 mg (1.25 x 200 mg calcium (500 08/24/25 10/11/25 Rx mg)) PO QID PRN dyspepsia #30 tabs melatonin 3 mg tablet 3 mg PO HS PRN sleep #30 tabs 08/24/25 10/11/25 Rx pantoprazole 40 mg tablet,delayed 40 mg PO QAM #30 tabs 08/24/25 10/11/25 Rx release ranolazine 500 mg tablet,extended 500 mg PO BID #30 tabs 08/24/25 10/11/25 Rx release,12 hr acetaminophen 325 mg tablet 650 mg PO Q4H PRN PAIN/TEMP >100F 10/11/25 10/11/25 History (Tylenol) amlodipine 5 mg tablet 5 mg PO DAILY 10/11/25 10/11/25 History atorvastatin 10 mg tablet 10 mg PO HS 10/11/25 10/11/25 History ipratropium 0.5 mg-albuterol 3 mg 3 ml inhalation Q8H PRN 10/11/25 10/11/25 History (2.5 mg base)/3 mL nebulization CONGESTION/WHEEZING soln isosorbide mononitrate 60 mg 60 mg PO QAM 10/11/25 10/11/25 History tablet,extended release 24 hr lutein 25 mg-zeaxanthin 5 mg 1 cap PO 3XWK 10/11/25 10/11/25 History capsule (Ocuvite Blue Light) metoprolol succinate 25 mg 20 mg PO BID 10/11/25 10/11/25 History tablet,extended release 24 hr psyllium husk 3.4 gram/5.4 gram 3 tbsp PO DAILY PRN Constipation 10/11/25 10/11/25 History oral powder (Metamucil) sulfamethoxazole 800 0.5 tab PO QPM 10/11/25 10/11/25 History mg-trimethoprim 160 mg tablet (Bactrim DS) torsemide 20 mg tablet 40 mg PO QAM 10/11/25 10/11/25 History zinc oxide 10 % topical cream 1 applic topical BID 10/11/25 10/11/25 History Hospital Stay Data Consultations 10/11/25 13:45 ED Decision to Admit Stat 10/11/25 18:58 Consult Nephrology Routine Diagnostic Imagining Performed 10/11/25 11:36 CT cervical spine wo con Stat CT head/brain wo con Stat Reviewed imaging, laboratory and diagnostic studies. Pertinent findings as below. WBC 6.6 Hemoglobin 7.7 Platelets of 260 Electrolytes stable in the setting of hemodialysis Creatinine 3.77 in the setting of hemodialysis Troponins chronically elevated, no evidence of ACS TSH 2.99 COVID-negative Influenza negative Urine culture growing Elke albicans, chronic colonization Pending Results Patient Have Any Pending Studies at Discharge: No Discharge Instructions Given to Patient (Per Discharging Provider) Continue with chronic Liu care Total Time Total Time Spent Total Time Spent (In Minutes): 32
[2025-10-14] MEDS: EPOETIN ALFA 20,000 UNITS/ML VIAL IV ONE (15:05)
--- NOTE | 2025-10-14 16:55 | Nephrology Progress Note ---
Date of Service October 14, 2025 Assessment & Plan (1) ESRD on hemodialysis: Plan: routine HD 10/12 >> got 2.3 L; on 10/11 had 1.5 L UF; on October 14 had 1.8 L UF next HD on 10/17 for routine care no heparin in HD given fall/anemia again epo 20K w/ HD in this cardiac pt >> some of his anemia may be dilutional; low threshold to transfuse if hgb goes much lower than current 7.7 in pt with active CAD; iron stores adequate at 22% long hx of sacral pain/?bedsore >> monitor Hypotensive episode at dialysis with unresponsiveness, improving on follow-up; systolic blood pressure rebounded to 160s. Defer to primary service to evaluate and ensure appropriateness of hospital discharge which have been planned for this evening; personally I do believe he can be discharged from a nephro clinical standpoint this evening. We will follow anemia closely at dialysis with hemoglobin every other week per routine Care coordinated w/ Dr Baldwin via [employer] re unrepsonsive event at HD today (has happened in past), d/c dispo; we are in agreement. (2) CHF (congestive heart failure): Plan: will do some extra UF as tolerated continue cardiac meds Admission and Anticipated Discharge Date Admission Date: October 11, 2025 Subjective Seen just after he was brought back from dialysis. This treatment was ended 40 minutes early after a hypotensive episode culminating in decreased mental status. Blood pressure dropped quickly from 1 teens to 70s systolic. He had 1.8 L UF during the treatment. On my evaluation today, he denies shortness of breath or palpitations or uncontrolled musculoskeletal or chest pain. Review of Systems 2 Review of Systems: All systems reviewed & are unremarkable except as noted in Subjective Physical Exam 2 Constitutional: well developed, well nourished, + frail appearing and cooperative; no acute distress (Slight psychomotor slowing) Eyes: EOM intact bilaterally ENMT: Mouth: + dry oral mucous membranes Respiratory: normal respiratory effort Auscultation: + diminished lung sounds Cardiovascular: Rate/Rhythm: regular rate and regular rhythm Heart Sounds: + murmur Extremities: + AV fistula (RUE + t/b); no edema Gastrointestinal (Abdomen): Inspection/Auscultation: normal bowel sounds P ercussion/Palpation: abdomen soft; abdomen nontender Musculoskeletal: Extremities: strength 5/5 throughout Skin: no rashes, warm and dry Neurologic: Fine pill-rolling tremor left; moves all extremities; answers appropriately but with some slowing Results & Data Vital Signs (Past 12 Hours) Vital Signs Temp Pulse Pulse Pulse Pulse Resp BP 10/14/25 16:39 36.5 C 70 10/14/25 16:00 75 75/53 L 10/14/25 16:00 36.9 C 76 75 82 17 10/14/25 15:30 80 114/75 10/14/25 15:00 81 102/80 10/14/25 14:30 84 122/70 10/14/25 14:00 84 138/81 10/14/25 13:30 77 117/70 10/14/25 13:00 80 117/74 10/14/25 12:45 81 147/78 H 10/14/25 12:40 36.9 C 82 10/14/25 08:20 36.7 C 75 17 BP Pulse Ox O2 Del Method 10/14/25 16:39 121/44 L 10/14/25 16:00 10/14/25 16:00 156/70 H 93 10/14/25 15:30 10/14/25 15:00 10/14/25 14:30 10/14/25 14:00 10/14/25 13:30 10/14/25 13:00 10/14/25 12:45 10/14/25 12:40 10/14/25 08:20 156/70 H 93 Room Air Laboratory Results 10/12/25 07:00 10/13/25 09:25
[2025-10-15 01:31] VITALS: BP 157/73; PULSE 78; RESP 20; TEMP 97.9; O2SAT 94
== END 2025-10-15 07:57 | DRG 698 ==
LOC: ED 11:27 → EDINP 13:59 → SUATTDRO 13:59 → EDINP 17:18 → 2N 17:54

== ENCOUNTER 2025-11-09 10:03 | Inpatient (IN) ==
--- NOTE | 2025-11-09 10:20 | Emergency Department Note ---
Impression & Plan Stroke-like symptoms, AMS (altered mental status), End-stage renal disease on hemodialysis, Indwelling Albert catheter present ED Provider Note NAME: RENE MAK AGE: 85 SEX: M : 1940 ARRIVES VIA: Ambulance INFORMANT: Patient ED PROVIDER(S): Mingo Esteban MD CHIEF COMPLAINT: Altered mental status. Referred. PLAN: Disposition: Admit MEDICAL DECISION MAKING: The patient is a 85-year-old gentleman with a past medical history of ESRD on hemodialysis though still urinates with indwelling Albert catheter, aortic stenosis, CHF, BPH, gout, history of lung cancer, hypertension, AAA, CVA/TIA who presents to the emergency department via EMS referred by his senior care [facility] for altered mental status this morning when they attempted to wake him up and could barely speak. At the patient's baseline he is able to speak fluently interact with staff though he is wheelchair-bound. Per staff the patient's last known well is estimated to be at best 1500 but otherwise it is unclear when the patient had such a severe decline in his mental status and ability to communicate. The patient receives dialysis Friday and is due today. He has not missed any dialysis sessions. Of note, EMS did note the patient did have intermittent episodes of bradycardia in the 30s though he did have normal blood pressure upon their initial assessment. Given his change in mental status they did trial atropine and heart rate did improve though no change in his mental status. Patient does follow commands. He appears to have a rightward gaze though when asked, the patient will look and direct his gaze to the left. He will attempt to speak and answer questions but is severely dysarthric though words are somewhat intelligible. He exhibits generalized weakness in all extremities. Left lower extremity appears to have somewhat of a contracture and will not straighten even when traction is applied. Patient does have intermittent productive cough. Given limited history and examination with abrupt change in mental status per staff stroke alert was activated and CT and CTA of the head and neck were expedited. CT imaging did not demonstrate acute stroke though did demonstrate encephalomalacia which is stable related to prior left frontal lobe stroke as well as age indeterminant cerebellar infarct in the setting of having extensive cerebrovascular disease including occlusion of the left vertebral artery and severe bilateral carotid stenosis. BSG for EMS was in the 120s however repeat BSG is in the Emergency Department were variable and ranged from the 50s-110s and so trial of amp of D50 was administered. EKG without overt acute ischemia. CXR negative for acute cardiopulmonary process per my personal preliminary review/interpretation. WBC within normal limits. H/H improved from prior. Platelets within normal limits. Chemistry without metabolic acidosis. Creatinine 4.5 in setting of patient's known end-stage renal disease due for dialysis today. LFTs unremarkable. Procalcitonin is not elevated. High-sensitivity troponin 37 with repeat 44, stable and nonspecific. Of note, following initial assessment the patient's son did call into the emergency department to provide additional information. The patient's son lives in [place]. He was aware of the patient being transferred to the emergency department. The patient's presentation was explained to his son and he does understand the patient's numerous comorbidities and describes that he has had a progressive decline in his functional status over the past month where he exhibits frequent confusion and dementia like symptoms thinking he is living at home and asking for family members that have years ago. Patient's son reports that the patient's decline has been so rapid that if the patient were to have critical findings, they would likely prefer to focus on comfort and would defer any invasive interventions. However if patient is found to have reversible causes such as infection they they would agree with admission for management of this. Unclear etiology to the patient's acute decline at this time though CVA still considered. Patient is not a TNK candidate due to last known well of yesterday. No LVO for intervention and moreover family expressed wishes to defer invasive treatments if needed. Case was discussed with Bonnie Orozco ovidio PAC with Dr. Reveles, [facility] hospitalist, who will evaluate the patient for admission. Albert catheter was replaced and UA obtained from fresh sample. This demonstrates WBCs but no bacteria and negative nitrites. Further management per admitting team. Triage Nursing notes reviewed and agree them. Prior/external medical records reviewed Vital Signs: reviewed Differential diagnosis: Infection, dehydration, metabolic abnormality, hypo/hyperglycemia, electrolyte disturbance, anemia, hypoxia, cardiac sources, intracerebral event, toxicologic, neurologic, as well as other pathologies. ER treatment provided: See below. Diagnostics interpreted by me: ECG: Likely sinus rhythm with premature supraventricular complexes, 69 bpm, no overt ST elevation or depression, LVH, QTc 469, QRS 82. Cardiac Monitoring: An order for continuous cardiac monitoring was placed and demonstrated Likely sinus rhythm with premature supraventricular complexes, 69 bpm. Laboratory studies: See below Imaging studies: See below Consultation(s): Case was discussed with Bonnie Man PAC with Dr. Reveles, [facility] hospitalist, who will evaluate the patient for admission. HPI: Per MDM. ROS: See above HPI for pertinent positives & negatives. A total of 10 systems reviewed and were otherwise negative. VITALS:See Below PHYSICAL EXAMINATION: GENERAL: Awake, alert, acute on chronically ill-appearing, in no distress HENT: Normocephalic, atraumatic. Oropharynx dry cracked mucous membranes. EYES: Normal conjunctiva. Sclera non-icteric. NECK: Supple. No nuchal rigidity. FROM. No JVD. RESPIRATORY: Clear to auscultation. CARDIAC: Regular rate, normal rhythm. Extremities warm and well perfused. Pulses equal. ABDOMEN: Soft, non-distended. No tenderness to palpation. No rebound or guarding. No masses. MUSCULOSKELETAL: Chest examination reveals no tenderness. The back is symmetrical on inspection without obvious abnormality. There is no CVA tenderness to palpation. No joint edema. LOWER EXTREMITIES: Calves are equal size bilaterally and non-tender. No edema. No discoloration. NEURO: Follows commands, dysarthric speech, generalized weakness in all extremities without focal extremity weakness. SKIN: No rash or jaundice noted. Mingo Esteban MD Past Med/Surg History Problem List (Updated 11/10/25 @ 01:07 by Mingo Esteban MD) Indwelling Albert catheter present (Acute) End-stage renal disease on hemodialysis (Acute) Stroke-like symptoms (Acute) Goals of care, counseling/discussion ESRD (end stage renal disease) on dialysis AMS (altered mental status) (Acute) Decubitus ulcer of buttock BPH with obstruction/lower urinary tract symptoms Fall from standing UTI (urinary tract infection) due to urinary indwelling Albert catheter Abnormal EKG (Acute) Fall (Acute) Anemia (Acute) Urinary tract infection (Acute) Generalized muscle weakness (Acute) Weakness Paroxysmal supraventricular tachycardia (Acute) New onset left bundle branch block (LBBB) (Acute) ESRD on hemodialysis (Acute) Elevated troponin (Acute) Chest pain (Acute) Urinary retention New onset left bundle branch block (LBBB) Right coronary artery occlusion ASCVD (arteriosclerotic cardiovascular disease) Aortic stenosis Chest pain at rest ESRD on hemodialysis Chronic hypoxic respiratory failure, on home oxygen therapy Chronic heart failure with preserved ejection fraction Hypertension, uncontrolled Anemia, chronic renal failure Elevated brain natriuretic peptide (BNP) level (Acute) Non-ST elevation [place] (NSTEMI) (Acute) Anemia (Acute) Chest pain (Acute) Pleural effusion (Acute) CHF (congestive heart failure) (Acute) Flash pulmonary edema Bradycardia Encephalopathy acute Acute on chronic renal failure Aortic stenosis, moderate Acute heart failure with preserved ejection fraction Acute on chronic heart failure with normal ejection fraction BPH (benign prostatic hyperplasia) Hx of gout Hx of cancer of lung Chronic diastolic heart failure Hypertensive urgency SOB (shortness of breath) Palpitations Dyspnea (Acute) Brain TIA (Acute) Confusion (Acute) Expressive aphasia (Acute) Encephalopathy (Acute) TIA (transient ischemic attack) BPH loc w urin obs/LUTS Encounter for pre-operative examination HLD (hyperlipidemia) AAA (abdominal aortic aneurysm) GI bleed Chest pain Precordial chest pain (Acute) Anemia (Acute) Acute GI bleeding (Acute) Elevated troponin (Acute) Anemia recently admitted to [facility] for this GERD (gastroesophageal reflux disease) HTN (hypertension) (Acute) CAD (coronary atherosclerotic disease) "S/P LAD stent" Medical History Acute kidney injury superimposed on chronic kidney disease COVID-19 History of GI bleed 07/25/22, pt recently admitted to [facility] for gi bleed. pt "unsure of all the details, but know that I was anemic and had a couple pints of blood." Poor historian Hearing deficit bilat CORREA's Stomach ulcer pt "thinks it's gone now" Arthritis TIA (transient ischemic attack) X 2 "a few years ago was last one" Surgical History History of colonoscopy History of tooth extraction History of tonsillectomy and adenoidectomy H/O heart artery stent X 4 (? DATE-"maybe 5 years ago" "LAST 2 STENTS PLACED AT [facility], OTHER 2 AT [facility]") S/P lobectomy of lung History of left-sided carotid endarterectomy H/O aortic aneurysm repair 2013 AT [facility] Family History Other No family history of adverse response to anesthesia No significant family history Social History Smoking Status: Former smoker Tobacco Type: Cigarettes Smoking End Date: 1979; Second Hand Exposure: No; Do You Dip or Chew Tobacco: No; Tobacco Cessation Education Requested by Patient: No Hx Alcohol Use: No Hx Substance Use: No Preferred Language: Japanese Communication Ability: Effective Communication Ability Comment: Pt is Confused Cryptologic Supervisor Required: No Beliefs That Will Affect Care: Rastafari Current Living Situation: Alf and Personal Care Facility Current Living Situation Comment: [facility] How many Children do You have: 1 Other Information That Helps Us Care for You: No Feels Safe at Home: Yes Safety Concerns: Feels Safe At This Time Assistive Devices: Glasses Allergies Allergies Allergy/AdvReac Type Severity Reaction Status Date / Time Penicillins Allergy Intermediate Rash Verified 10/11/25 15:08 Home Meds Home Medications Medication Instructions Recorded Confirmed allopurinol 100 mg tablet 100 mg PO WK 08/24/21 11/09/25 cholecalciferol (vitamin D3) 50 50 mcg PO QAM 08/24/21 11/09/25 mcg (2,000 unit) tablet (Vitamin D3) clopidogrel 75 mg tablet 75 mg PO QAM 08/24/21 11/09/25 aspirin 81 mg tablet,delayed 81 mg PO 3XWK 01/02/24 11/09/25 release albuterol sulfate 90 mcg/actuation 2 puff inhalation Q6H PRN 03/18/25 11/09/25 aerosol inhaler Cough/Wheezing bisacodyl 10 mg rectal suppository 10 mg KS Q24H PRN Constipation 03/18/25 11/09/25 famotidine 10 mg tablet 10 mg PO HS 03/18/25 11/09/25 nitroglycerin 0.4 mg sublingual 0.4 mg sublingual DIRECTED PRN 03/18/25 11/09/25 tablet Chest Pain ondansetron HCl 4 mg tablet 4 mg PO DAILYBB 03/18/25 11/09/25 sennosides 8.6 mg-docusate sodium 1 tab-cap PO HS 04/18/25 12/10/25 50 mg tablet (Senna Plus) tamsulosin 0.4 mg capsule 0.4 mg PO DAILY 03/18/25 11/09/25 calcium carbonate 500 mg PO Q6H PRN Indigestion 08/21/25 11/09/25 hydrocortisone 2.5 % topical cream 1 applic topical Q6H PRN Rectal 08/21/25 11/09/25 with perineal applicator Pain/Itchiness (Procto-Med HC) acetaminophen 325 mg tablet 650 mg PO Q4H PRN PAIN/TEMP >100F 10/11/25 11/09/25 (Tylenol) amlodipine 5 mg tablet 5 mg PO DAILY 10/11/25 11/09/25 atorvastatin 10 mg tablet 10 mg PO HS 10/11/25 11/09/25 ipratropium 0.5 mg-albuterol 3 mg 3 ml inhalation Q8H PRN 10/11/25 11/09/25 (2.5 mg base)/3 mL nebulization CONGESTION/WHEEZING soln isosorbide mononitrate 60 mg 60 mg PO QAM 10/11/25 11/09/25 tablet,extended release 24 hr lutein 25 mg-zeaxanthin 5 mg 1 cap PO 3XWK 10/11/25 11/09/25 capsule (Ocuvite Blue Light) metoprolol succinate 25 mg 25 mg PO BID 10/11/25 11/09/25 tablet,extended release 24 hr sulfamethoxazole 800 0.5 tab PO QPM 10/11/25 11/09/25 mg-trimethoprim 160 mg tablet (Bactrim DS) hydrocortisone 2.5 % topical cream 1 applic topical Q6H PRN Rectal 11/09/25 11/09/25 Discomfort sodium phosphates 19 gram-7 118 ml KS DAILY PRN Constipation 11/09/25 11/09/25 gram/118 mL enema (Fleet Enema) torsemide 40 mg tablet 40 mg PO DAILY 11/09/25 11/09/25 zinc oxide-cod liver oil 40 % 1 applic topical DAILY PRN Rash 11/09/25 11/09/25 topical paste (Desitin) Previous Rx's Medication Instructions Recorded calcium carbonate (Tums) 250 mg (1.25 x 200 mg calcium (500 08/24/25 mg)) PO QID PRN dyspepsia #30 tabs melatonin 3 mg tablet 3 mg PO HS PRN sleep #30 tabs 08/24/25 pantoprazole 40 mg tablet,delayed 40 mg PO QAM #30 tabs 08/24/25 release ranolazine 500 mg tablet,extended 500 mg PO BID #30 tabs 08/24/25 release,12 hr Results & Data (ED) Vital Signs Vital Signs - 24 hr 11/09/25 09:55 11/09/25 10:40 11/09/25 10:53 Temperature 36.6 C Temperature Source Oral Pulse Rate 67 61 Pulse Rate [Apical] Pulse Rate from SpO2 Sensor Respiratory Rate 20 Respiratory Effort / Characteristics Spontaneous Respiratory Depth Shallow Respiratory Pattern Regular Blood Pressure 159/90 H Blood Pressure [Left Arm] Blood Pressure Mean 113 Blood Pressure Mean [Left Arm] Pulse Oximetry 94 88 L Oxygen Delivery Method Room Air Room Air Nasal Cannula Oxygen Flow Rate 0 Sepsis Recent Fever Within 48 Hours No Sepsis New/Unexplained Change in Mental Status N/A Sepsis Action Taken by Nursing No Action Required Oxygen Flow Rate - Titration 2 Pulse Oximetry Post Tiitration 95 11/09/25 10:56 11/09/25 11:00 11/09/25 11:33 Temperature Temperature Source Pulse Rate 64 69 Pulse Rate [Apical] 58 L Pulse Rate from SpO2 Sensor 32 L 32 L Respiratory Rate 20 17 18 Respiratory Effort / Characteristics Respiratory Depth Shallow Respiratory Pattern Blood Pressure 164/86 H 162/95 H Blood Pressure [Left Arm] 156/82 H Blood Pressure Mean 112 117 Blood Pressure Mean [Left Arm] 106 Pulse Oximetry 93 96 93 Oxygen Delivery Method Nasal Cannula Oxygen Flow Rate 2 Sepsis Recent Fever Within 48 Hours Sepsis New/Unexplained Change in Mental Status Sepsis Action Taken by Nursing Oxygen Flow Rate - Titration Pulse Oximetry Post Tiitration 11/09/25 12:00 11/09/25 12:09 Temperature Temperature Source Pulse Rate 67 Pulse Rate [Apical] 65 Pulse Rate from SpO2 Sensor 34 L Respiratory Rate 18 16 Respiratory Effort / Characteristics Respiratory Depth Respiratory Pattern Blood Pressure 162/109 H Blood Pressure [Left Arm] 167/90 H Blood Pressure Mean 126 Blood Pressure Mean [Left Arm] 115 Pulse Oximetry 96 95 Oxygen Delivery Method Nasal Cannula Oxygen Flow Rate Sepsis Recent Fever Within 48 Hours Sepsis New/Unexplained Change in Mental Status Sepsis Action Taken by Nursing Oxygen Flow Rate - Titration Pulse Oximetry Post Tiitration Laboratory Data 11/09/25 09:50 11/09/25 09:50 Lab Results 12/09/2411/09/25 11/09/25 Range/Units 09:50 10:13 10:15 WBC 6.20 (4.8-10.8) K/ul RBC 2.79 L (4.70-6.10) M/uL Hgb 9.6 L (14.0-18.0) g/dL POC Hgb (14.0-18.0) g/dl Hct 30.1 L (42.0-52.0) % POC Hct (42-52) % MCV 107.9 H (80.0-100.0) fL MCH 34.4 H (25.0-34.0) pg MCHC 31.9 L (32.0-36.0) g/dL RDW Std Deviation 69.4 H (36.4-46.3) fL RDW Coeff of Serene 17.5 H (11.5-14.5) % Plt Count 174 (130-400) K/uL MPV 10.5 (9.4-12.4) fL Immature Gran % (Auto) 0.8 % Neut % (Auto) 72.5 % Lymph % (Auto) 12.6 % Dunn % (Auto) 10.0 % Eos % (Auto) 3.1 % Baso % (Auto) 1.0 % Neut # (Auto) 4.50 (1.40-6.50) K/uL Lymph # (Auto) 0.78 L (1.20-3.40) K/uL Dunn # (Auto) 0.62 H (0.11-0.59) K/uL Eos # (Auto) 0.19 (0.00-0.50) K/uL Baso # (Auto) 0.06 (0.00-0.20) K/uL Immature Gran # (Auto) 0.05 (0.01-0.20) K/uL PT 11.3 (9.0-12.0) Seconds INR 1.1 (0.9-1.1) APTT 27 (21-31) Seconds PTT Ratio 1.0 VBG pH (7.36-7.41) VBG pCO2 (38-50) mmHg VBG pO2 mmHg VBG HCO3 mmol/L VBG O2 Saturation % VBG Base Excess mEq/L POC Sodium (135-144) mmol/L Sodium 138 (136-145) mmol/L POC Potassium (3.3-5.0) mmol/L Potassium 3.8 (3.5-5.1) mmol/L POC Chloride (101-112) mmol/L Chloride 103 (98-107) mmol/L Carbon Dioxide 30 (21-32) mmol/L POC Total CO2 (24-31) mmol/L Anion Gap 5 (3-11) POC Anion Gap (16-25) mmol/L POC BUN (7-18) mg/dl BUN 35 H (6-23) mg/dl Creatinine 4.53 H* (0.6-1.4) mg/dl POC Creatinine (0.6-1.3) mg/dl Est Cr Clr Drug Dosing Not Reportable eGFR 11.96 BUN/Creatinine Ratio 7.7 L (10-20) Glucose 104 H (70-99(Fasting)) mg/dl POC Glucose 59 L* 81 (70-99) mg/dl POC Glucose (other) (70-99) mg/dl Calcium 8.9 (8.6-10.3) mg/dl POC Ioniz Calcium Adama (1.12-1.32) mmol/l Magnesium 2.1 (1.7-2.4) mg/dl Total Bilirubin 0.5 (0.2-1.0) mg/dl AST 11 L (13-39) U/L ALT 5 L (7-52) U/L Alkaline Phosphatase 76 (34-104) U/L Troponin I High Sens 37.4 H (0-20) pg/ml Total Protein 5.8 L (6.0-8.3) gm/dl Albumin 2.6 L (3.4-5.0) gm/dl Globulin 3.2 (2.5-4.0) gm/dl Albumin/Globulin Ratio 0.8 L (0.9-2) Procalcitonin 0.39 (0-0.5) ng/ml Urine Color Urine Appearance (Clear) Urine pH (4.5-7.5) Ur Specific Pelham (1.000-1.030) Urine Protein (Negative) Urine Glucose (UA) (Negative) Urine Ketones (Negative) Urine Blood (Negative) Urine Nitrite (Negative) Urine Bilirubin (Negative) Urine Urobilinogen (Negative) Ur Leukocyte Esterase (Negative) Urine WBC (Auto) (0-5) /hpf Urine RBC (Auto) (0-2) /hpf U Hyaline Cast (Auto) (0-2) /lpf U Epithel Cells (Auto) (0-2) /hpf Urine Bacteria (Auto) (None Seen) Urine Yeast (None Prsent) Urine Comment Urine Opiates Screen (Neg) Ur Methadone, Qual (Neg) Urine Fentanyl Screen (Neg) Urine Barbiturates (Neg) Ur Phencyclidine (PCP) (Neg) U Amphetamin/Meth Scrn (Neg) MDMA (Ecstasy) Screen (Neg) U Benzodiazepines Scrn (Neg) Ur Cocaine Metabolite (Neg) U Marijuana (THC) Screen (Neg) 11/09/25 11/09/25 11/09/25 Range/Units 10:24 11:07 12:08 WBC (4.8-10.8) K/ul RBC (4.70-6.10) M/uL Hgb (14.0-18.0) g/dL POC Hgb 10.5 L (14.0-18.0) g/dl Hct (42.0-52.0) % POC Hct 31 L (42-52) % MCV (80.0-100.0) fL MCH (25.0-34.0) pg MCHC (32.0-36.0) g/dL RDW Std Deviation (36.4-46.3) fL RDW Coeff of Serene (11.5-14.5) % Plt Count (130-400) K/uL MPV (9.4-12.4) fL Immature Gran % (Auto) % Neut % (Auto) % Lymph % (Auto) % Dunn % (Auto) % Eos % (Auto) % Baso % (Auto) % Neut # (Auto) (1.40-6.50) K/uL Lymph # (Auto) (1.20-3.40) K/uL Dunn # (Auto) (0.11-0.59) K/uL Eos # (Auto) (0.00-0.50) K/uL Baso # (Auto) (0.00-0.20) K/uL Immature Gran # (Auto) (0.01-0.20) K/uL PT (9.0-12.0) Seconds INR (0.9-1.1) APTT (21-31) Seconds PTT Ratio VBG pH (7.36-7.41) VBG pCO2 (38-50) mmHg VBG pO2 mmHg VBG HCO3 mmol/L VBG O2 Saturation % VBG Base Excess mEq/L POC Sodium 140 (135-144) mmol/L Sodium (136-145) mmol/L POC Potassium 3.8 (3.3-5.0) mmol/L Potassium (3.5-5.1) mmol/L POC Chloride 101 (101-112) mmol/L Chloride (98-107) mmol/L Carbon Dioxide (21-32) mmol/L POC Total CO2 26 (24-31) mmol/L Anion Gap (3-11) POC Anion Gap 17.0 (16-25) mmol/L POC BUN 33 H (7-18) mg/dl BUN (6-23) mg/dl Creatinine (0.6-1.4) mg/dl POC Creatinine 4.8 H* (0.6-1.3) mg/dl Est Cr Clr Drug Dosing eGFR BUN/Creatinine Ratio (10-20) Glucose (70-99(Fasting)) mg/dl POC Glucose 118 H (70-99) mg/dl POC Glucose (other) 94 (70-99) mg/dl Calcium (8.6-10.3) mg/dl POC Ioniz Calcium Adama 1.17 (1.12-1.32) mmol/l Magnesium (1.7-2.4) mg/dl Total Bilirubin (0.2-1.0) mg/dl AST (13-39) U/L ALT (7-52) U/L Alkaline Phosphatase (34-104) U/L Troponin I High Sens (0-20) pg/ml Total Protein (6.0-8.3) gm/dl Albumin (3.4-5.0) gm/dl Globulin (2.5-4.0) gm/dl Albumin/Globulin Ratio (0.9-2) Procalcitonin (0-0.5) ng/ml Urine Color Yellow Urine Appearance Cloudy A (Clear) Urine pH 8.0 H (4.5-7.5) Ur Specific Pelham 1.022 (1.000-1.030) Urine Protein 1+ H (Negative) Urine Glucose (UA) 1+ H (Negative) Urine Ketones Negative (Negative) Urine Blood 2+ H (Negative) Urine Nitrite Negative (Negative) Urine Bilirubin Negative (Negative) Urine Urobilinogen Negative (Negative) Ur Leukocyte Esterase 3+ H (Negative) Urine WBC (Auto) >50 H (0-5) /hpf Urine RBC (Auto) 6-10 H (0-2) /hpf U Hyaline Cast (Auto) 3-5 H (0-2) /lpf U Epithel Cells (Auto) 0-2 (0-2) /hpf Urine Bacteria (Auto) None Seen (None Seen) Urine Yeast Present A (None Prsent) Urine Comment Urine Opiates Screen Neg (Neg) Ur Methadone, Qual Neg (Neg) Urine Fentanyl Screen Neg (Neg) Urine Barbiturates Neg (Neg) Ur Phencyclidine (PCP) Neg (Neg) U Amphetamin/Meth Scrn Neg (Neg) MDMA (Ecstasy) Screen Neg (Neg) U Benzodiazepines Scrn Neg (Neg) Ur Cocaine Metabolite Neg (Neg) U Marijuana (THC) Screen Neg (Neg) 11/09/25 11/09/25 Range/Units 12:50 13:14 WBC (4.8-10.8) K/ul RBC (4.70-6.10) M/uL Hgb (14.0-18.0) g/dL POC Hgb (14.0-18.0) g/dl Hct (42.0-52.0) % POC Hct (42-52) % MCV (80.0-100.0) fL MCH (25.0-34.0) pg MCHC (32.0-36.0) g/dL RDW Std Deviation (36.4-46.3) fL RDW Coeff of Serene (11.5-14.5) % Plt Count (130-400) K/uL MPV (9.4-12.4) fL Immature Gran % (Auto) % Neut % (Auto) % Lymph % (Auto) % Dunn % (Auto) % Eos % (Auto) % Baso % (Auto) % Neut # (Auto) (1.40-6.50) K/uL Lymph # (Auto) (1.20-3.40) K/uL Dunn # (Auto) (0.11-0.59) K/uL Eos # (Auto) (0.00-0.50) K/uL Baso # (Auto) (0.00-0.20) K/uL Immature Gran # (Auto) (0.01-0.20) K/uL PT (9.0-12.0) Seconds INR (0.9-1.1) APTT (21-31) Seconds PTT Ratio VBG pH 7.42 H (7.36-7.41) VBG pCO2 46 (38-50) mmHg VBG pO2 34 mmHg VBG HCO3 30 mmol/L VBG O2 Saturation < 60.0 % VBG Base Excess 4.5 mEq/L POC Sodium (135-144) mmol/L Sodium (136-145) mmol/L POC Potassium (3.3-5.0) mmol/L Potassium (3.5-5.1) mmol/L POC Chloride (101-112) mmol/L Chloride (98-107) mmol/L Carbon Dioxide (21-32) mmol/L POC Total CO2 (24-31) mmol/L Anion Gap (3-11) POC Anion Gap (16-25) mmol/L POC BUN (7-18) mg/dl BUN (6-23) mg/dl Creatinine (0.6-1.4) mg/dl POC Creatinine (0.6-1.3) mg/dl Est Cr Clr Drug Dosing eGFR BUN/Creatinine Ratio (10-20) Glucose (70-99(Fasting)) mg/dl POC Glucose (70-99) mg/dl POC Glucose (other) (70-99) mg/dl Calcium (8.6-10.3) mg/dl POC Ioniz Calcium Adama (1.12-1.32) mmol/l Magnesium (1.7-2.4) mg/dl Total Bilirubin (0.2-1.0) mg/dl AST (13-39) U/L ALT (7-52) U/L Alkaline Phosphatase (34-104) U/L Troponin I High Sens 44.2 H (0-20) pg/ml Total Protein (6.0-8.3) gm/dl Albumin (3.4-5.0) gm/dl Globulin (2.5-4.0) gm/dl Albumin/Globulin Ratio (0.9-2) Procalcitonin (0-0.5) ng/ml Urine Color Urine Appearance (Clear) Urine pH (4.5-7.5) Ur Specific Pelham (1.000-1.030) Urine Protein (Negative) Urine Glucose (UA) (Negative) Urine Ketones (Negative) Urine Blood (Negative) Urine Nitrite (Negative) Urine Bilirubin (Negative) Urine Urobilinogen (Negative) Ur Leukocyte Esterase (Negative) Urine WBC (Auto) (0-5) /hpf Urine RBC (Auto) (0-2) /hpf U Hyaline Cast (Auto) (0-2) /lpf U Epithel Cells (Auto) (0-2) /hpf Urine Bacteria (Auto) (None Seen) Urine Yeast (None Prsent) Urine Comment Urine Opiates Screen (Neg) Ur Methadone, Qual (Neg) Urine Fentanyl Screen (Neg) Urine Barbiturates (Neg) Ur Phencyclidine (PCP) (Neg) U Amphetamin/Meth Scrn (Neg) MDMA (Ecstasy) Screen (Neg) U Benzodiazepines Scrn (Neg) Ur Cocaine Metabolite (Neg) U Marijuana (THC) Screen (Neg) Administered Medications Dextrose/Sodium Chloride (D5w And Nss) 1,000 mls @ 50 mls/hr IV .Q20H ALEX Stop: 11/10/25 11:44 Last Admin: 11/09/25 16:02 Dose: 50 mls/hr Documented By: LEIGHTON Metoprolol Tartrate (Metoprolol Tartrate 1 Mg/Ml Vial) 2.5 mg IV Q6 ALEX Stop: 12/10/25 00:00 Last Admin: 11/10/25 00:24 Dose: Not Given Documented By: GABRIELE Discontinued Medications Dextrose (Dextrose 50% 50 Ml Syringe) 50 ml IV NOW ONE Stop: 11/09/25 10:18 Last Admin: 11/09/25 10:45 Dose: 50 ml Documented By: CLOVIS Diphenhydramine HCl (Diphenhydramine 50 Mg/Ml Vial) 25 mg IV NOW STA Stop: 11/09/25 17:41 Last Admin: 11/09/25 17:47 Dose: 25 mg Documented By: jose raul Heparin Sodium (Porcine) (Heparin Sod (Porcine) 1000 Unit/Ml) 1,000 units IV ONE ONE Stop: 11/09/25 13:36 Last Admin: 11/09/25 19:39 Dose: Not Given Documented By: GABRIELE Heparin Sodium (Porcine) (Heparin Sod (Porcine) 1000 Unit/Ml) 500 units IV Q1H ALEX Stop: 11/09/25 15:46 Last Admin: 11/09/25 19:42 Dose: Not Given Documented By: Admin: 11/09/25 19:40 Dose: Not Given Documented By: Admin: 11/09/25 19:39 Dose: Not Given Documented By: GABRIELE Ceftriaxone Sodium (Rocephin) 2,000 mg in 50 mls @ 100 mls/hr IV NOW STA Stop: 11/09/25 13:29 Last Infusion: 11/09/25 13:46 Dose: Infused Documented By: Admin: 11/09/25 13:16 Dose: 100 mls/hr Documented By: LEIGHTON Ioversol (Optiray 320 125ml) 112 ml IV ONCE ONE Stop: 11/09/25 10:33 Last Admin: 11/09/25 10:32 Dose: 112 ml Documented By: XIMENA Methylprednisolone (Methylprednisolone 125 Mg/2 Ml Vial) 40 mg IV NOW STA Stop: 11/09/25 17:42 Last Admin: 11/09/25 17:48 Dose: 40 mg Documented By: jose raul Metoprolol Tartrate (Metoprolol Tartrate 1 Mg/Ml Vial) 5 mg IV Q6 ALEX Stop: 12/09/25 17:59 Last Admin: 11/09/25 19:36 Dose: Not Given Documented By: GABRIELE Imaging Data Radiologist's Impression: Chest X-Ray 11/09/25 10:15 XR chest 1V portable HISTORY: 85 years-old Male neuro deficit, acute stroke suspected COMPARISON: Chest radiograph 10/12/2025 TECHNIQUE: AP view the chest FINDINGS: Cardiac silhouette is enlarged. Hiatal hernia. Right IJ dual-lumen hemodialysis catheter again noted. Coronary arterial stent. Surgical clips project over the left hilum. Pulmonary vascular congestion with interstitial coarsening. Blunting of the costophrenic angles with ill-defined mid and lower lung zone pulmonary opacities again noted. Degenerative changes of the shoulders and spine. IMPRESSION: 1. Cardiomegaly with suggestion of pulmonary edema. 2. Trace pleural effusions suggested with mild bibasilar densities favoring atelectasis. 3. Hiatal hernia. ACT 112: Negative or not required by law. The above report was generated using voice recognition software. It may contain grammatical, syntax or spelling errors. Electronically signed by: Andre Pineda M.D. 11/09/2025 12:[address] 11/09/25 10:15 CT SCAN OF THE BRAIN WITHOUT IV CONTRAST CLINICAL HISTORY: Neuro deficit, acute stroke suspected. COMPARISON STUDY: MRI of the brain January 17, 2023. Head CT October 11, 2025. TECHNIQUE: Unenhanced axial CT scan of the brain was performed from the vertex to the skull base. A dose lowering technique was utilized adhering to the principles of ALARA. FINDINGS: This exam is mildly compromised by artifact. No acute intracranial hemorrhage, midline shift or mass effect is present. Ventricular system is stable asymmetric dilatation of the left lateral ventricle. Basal cisterns are patent. There are no extra-axial collections. Left frontal encephalomalacia consistent with old infarct is unchanged. Hypodensity within the left cerebellar hemisphere measuring approximately 2.3 cm in extent is noted. This is age indeterminate and may have been present on prior CT. There are no calvarial fractures. IMPRESSION: 1. No acute intracranial hemorrhage. No mass effect. 2. 2.3 cm hypodense focus within the left cerebellar hemisphere. This represents an age indeterminate ischemic change. 3. Old left frontal lobe infarct. ACT 112: Negative or not required by law. Electronically signed by: Blair Robles M.D. 11/09/2025 11:10 AM Head CTA 11/09/25 10:15 CT angio head w con CLINICAL HISTORY: 85 years-old Male with neuro deficit, acute stroke suspected. Acute stroke like symptoms COMPARISON STUDY: Head CT same day and also 10/11/2025, CTA head dated 01/16/2023, MRI 01/17/2023. TECHNIQUE: Following the IV administration of 112 cc of Optiray, CT angiogram of the brain was performed from the skull base to the vertex. Images are reviewed in the axial, sagittal, and coronal planes. 3-D MIPS images are created and assessed. IV contrast was administered without complication. All measurements were obtained according to NASCET criteria. A dose lowering technique was utilized adhering to the principles of ALARA. FINDINGS: CT BRAIN: Dictated separately. CT ANGIOGRAM OF THE BRAIN: Moderate atherosclerosis of the imaged internal carotid arteries causing mild to moderate multifocal stenoses. There is high-grade stenoses of the supraclinoid segment right ICA. Mild multifocal stenoses of the middle cerebral arteries. The anterior cerebral arteries are patent. Calcified plaques in the V4 segment right vertebral artery causes mild stenosis. Interval development of occlusion involving the left upper artery which involves the distal V2 segment, V3 and V4 segments. There is decreased flow within the left leg are compared to the right. Dural sinuses appear patent. No abnormal intracranial enhancement. Age-indeterminate cerebellar lacunar infarcts which appear to have progressed from the prior MRI exam. IMPRESSION: 1. Age-indeterminate occlusion of the distal left vertebral artery. 2. Chronic and age indeterminate left cerebellar lacunar infarcts. 3. High-grade stenosis of the supraclinoid right ICA secondary to prominent atherosclerosis. ACT 112: Negative or not required by law. The above report was generated using voice recognition software. It may contain grammatical, syntax or spelling errors. Electronically signed by: Andre Pineda M.D. 11/09/2025 11:10 AM Neck CTA 11/09/25 10:15 CT ANGIOGRAM OF THE NECK CLINICAL HISTORY: Neurological deficit. Stroke like symptoms. COMPARISON STUDY: CT angiogram of the neck dated 01/16/2023 TECHNIQUE: Following the IV administration of 112 of Optiray 320, CT angiogram of the neck was performed from the aortic arch to the skull base. Images are reviewed in the axial, sagittal, and coronal planes. 3-D MIPS images are created and assessed. IV contrast was administered without complication. All measurements were calculated based on NASCET criteria. A dose lowering technique was utilized adhering to the principles of ALARA. CT DOSE: 1964.63 mGy.cm FINDINGS: Thoracic aorta: There is atherosclerotic calcification of the thoracic aorta. Visualized portions of the thoracic aorta are normal in caliber. The aortic arch demonstrates bovine variant anatomy. Right carotid arterial system: The right common carotid artery is widely patent. There is advanced atherosclerotic plaque in the carotid bulb which causes approximately 50% stenosis of the origin of the right internal carotid artery. The right internal and external carotid arteries are otherwise patent. Left carotid arterial system: The left common carotid artery is widely patent, as is the left internal carotid artery no definite advanced atherosclerotic plaque and irregularity. Postsurgical changes suggested adjacent to the carotid bulb. There is moderate to high-grade focal stenosis at the origin of the left external carotid artery. The left external carotid artery is otherwise clear. Vertebral arteries: There is moderate focal stenosis of the origin of the right vertebral artery. The right vertebral artery is dominant and otherwise otherwise widely patent. There is high-grade stenosis with near-complete occlusion at the origin of the left vertebral artery. The proximal left vertebral artery is patent. 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 Intracranial vasculature:. The visualized intracranial portions of the left vertebral artery are thrombosed. The remaining Visualized intracranial vessels at the skull base are patent. Jugular veins: A right internal jugular central venous catheter is in place. The jugular veins are patent bilaterally. Brain parenchyma: The visualized brain parenchyma the skull base is within normal limits. Lung apices: Emphysematous change is noted. The visualized apical lung parenchyma otherwise appears clear. Soft tissues: The visualized pharyngeal soft tissues are normal in appearance noting angiographic phase technique. The oropharyngeal airway appears widely patent. The thyroid gland is atrophic and heterogeneous. The salivary glands are normal in appearance. No cervical lymphadenopathy is seen. Skeletal structures: The skeletal structures are osteopenic. The visualized calvarium at the skull base appears intact. The imaged cervical spine is maintained noting advanced spondylosis. Sinuses and mastoids: The visualized paranasal sinuses are clear. The mastoid air cells are well pneumatized. IMPRESSION: 1. There is approximately 50% stenosis at the origin of the right internal carotid artery. The right carotid vessels are otherwise patent. 2. Postsurgical change is suggested involving the left carotid bulb. There is moderate to high-grade stenosis at the origin of the left external carotid artery. The left carotid vessels are otherwise patent. 3. There is moderate focal stenosis at the origin of the dominant right vertebral artery. The right vertebral artery is otherwise patent. 4. There is high-grade stenosis with near-complete occlusion at the origin of the left vertebral artery. The proximal and mid portions of the vessel are patent with diminished flow. 5. 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 The visualized intracranial portions are occluded. This represents a change from 01/16/2023. 6. Emphysema. ACT 112: Negative or not required by law. Electronically signed by: Rylan Ho M.D. 11/09/2025 11:10 AM Discharge Plan Visit Data Chief Complaint: Altered Mental Status Stated Complaint: AMS ED Provider: Mingo Esteban Discharge Problem: Stroke-like symptoms, AMS (altered mental status), End-stage renal disease on hemodialysis, Indwelling Albert catheter present Patient Disposition: Admitted As Inpatient Condition: Serious Discharge Instructions Interventions: ED Discharge Assessment Last Done: 11/09/25 18:50 Discharge Problem: AMS (altered mental status) Qualifiers: Altered mental status type: unspecified Qualified Code(s): R41.82 - Altered mental status, unspecified
[2025-11-09 10:32] LABS: Hematocrit (blood only) 30.1 % (42.0-52.0); Hemoglobin 9.6 g/dL (14.0-18.0); Immature Granulocytes # (auto) 0.05 K/uL (0.01-0.20); Immature Granulocytes % (auto) 0.8 %; Mean Corpuscular Hemoglobin 34.4 pg (25.0-34.0); Mean Corpuscular Volume 107.9 fL (80.0-100.0); Platelet Count 174 K/uL (130-400); RDW Standard Deviation 69.4 fL (36.4-46.3); Red Blood Count 2.79 M/uL (4.70-6.10); White Blood Count 6.20 K/ul (4.8-10.8)
[2025-11-09] MEDS: OPTIRAY 320 125ml IV ONE (10:32)
[2025-11-09] MEDS: DEXTROSE 50% 50 ML SYRINGE IV ONE (10:45)
[2025-11-09 11:08] LABS: Alanine Aminotransferase 5 U/L (7-52); Albumin Globulin Ratio 0.8 (0.9-2); Albumin Level 2.6 gm/dl (3.4-5.0); Alkaline Phosphatase 76 U/L (34-104); Anion Gap 5 (3-11); Bilirubin,Total 0.5 mg/dl (0.2-1.0); Blood Urea Nitrogen 35 mg/dl (6-23); Calcium 8.9 mg/dl (8.6-10.3); Carbon Dioxide 30 mmol/L (21-32); Chloride 103 mmol/L (98-107); Globulin 3.2 gm/dl (2.5-4.0); Glucose 104 mg/dl (70-99(Fasting)); Magnesium 2.1 mg/dl (1.7-2.4); Potassium 3.8 mmol/L (3.5-5.1); Sodium 138 mmol/L (136-145); Total Protein 5.8 gm/dl (6.0-8.3)
--- NOTE | 2025-11-09 11:11 | CT Scan Report ---
CT ANGIOGRAM OF THE NECK CLINICAL HISTORY: Neurological deficit. Stroke like symptoms. COMPARISON STUDY: CT angiogram of the neck dated 01/16/2023 TECHNIQUE: Following the IV administration of 112 of Optiray 320, CT angiogram of the neck was perfor med from the aortic arch to the skull base. Images are reviewed in the axial, sagittal, and coronal p lanes. 3-D MIPS images are created and assessed. IV contrast was administered without complication. A ll measurements were calculated based on NASCET criteria. A dose lowering technique was utilized adh ering to the principles of ALARA. CT DOSE: 1964.63 mGy.cm FINDINGS: Thoracic aorta: There is atherosclerotic calcification of the thoracic aorta. Visualized portions of the thoracic aorta are normal in caliber. The aortic arch demonstrates bovine variant anatomy. Right carotid arterial system: The right common carotid artery is widely patent. There is advanced at herosclerotic plaque in the carotid bulb which causes approximately 50% stenosis of the origin of the right internal carotid artery. The right internal and external carotid arteries are otherwise patent . Left carotid arterial system: The left common carotid artery is widely patent, as is the left interna l carotid artery no definite advanced atherosclerotic plaque and irregularity. Postsurgical changes s uggested adjacent to the carotid bulb. There is moderate to high-grade focal stenosis at the origin o f the left external carotid artery. The left external carotid artery is otherwise clear. Vertebral arteries: There is moderate focal stenosis of the origin of the right vertebral artery. The right vertebral artery is dominant and otherwise otherwise widely patent. There is high-grade stenos is with near-complete occlusion at the origin of the left vertebral artery. The proximal left vertebr al artery is patent. 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 Intracranial vasculature:. The visualized intracranial portions of the left vertebral artery are thro mbosed. The remaining Visualized intracranial vessels at the skull base are patent. Jugular veins: A right internal jugular central venous catheter is in place. The jugular veins are pa tent bilaterally. Brain parenchyma: The visualized brain parenchyma the skull base is within normal limits. Lung apices: Emphysematous change is noted. The visualized apical lung parenchyma otherwise appears c lear. Soft tissues: The visualized pharyngeal soft tissues are normal in appearance noting angiographic pha se technique. The oropharyngeal airway appears widely patent. The thyroid gland is atrophic and heter ogeneous. The salivary glands are normal in appearance. No cervical lymphadenopathy is seen. Skeletal structures: The skeletal structures are osteopenic. The visualized calvarium at the skull ba se appears intact. The imaged cervical spine is maintained noting advanced spondylosis. Sinuses and mastoids: The visualized paranasal sinuses are clear. The mastoid air cells are well pneu matized. IMPRESSION: 1. There is approximately 50% stenosis at the origin of the right internal carotid artery. The right carotid vessels are otherwise patent. 2. Postsurgical change is suggested involving the left carotid bulb. There is moderate to high-grade stenosis at the origin of the left external carotid artery. The left carotid vessels are otherwise pa tent. 3. There is moderate focal stenosis at the origin of the dominant right vertebral artery. The right v ertebral artery is otherwise patent. 4. There is high-grade stenosis with near-complete occlusion at the origin of the left vertebral eloy ry. The proximal and mid portions of the vessel are patent with diminished flow. 5. 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 The visuali zed intracranial portions are occluded. This represents a change from 01/16/2023. 6. Emphysema. ACT 112: Negative or not required by law. Electronically signed by: Rylan Ho M.D. 11/09/2025 11:10 AM
--- NOTE | 2025-11-09 11:11 | CT Scan Report ---
CT angio head w con CLINICAL HISTORY: 85 years-old Male with neuro deficit, acute stroke suspected. Acute stroke like symptoms COMPARISON STUDY: Head CT same day and also 10/11/2025, CTA head dated 01/16/2023, MRI 01/17/2023. TECHNIQUE: Following the IV administration of 112 cc of Optiray, CT angiogram of the brain was perfo rmed from the skull base to the vertex. Images are reviewed in the axial, sagittal, and coronal plane s. 3-D MIPS images are created and assessed. IV contrast was administered without complication. All m easurements were obtained according to NASCET criteria. A dose lowering technique was utilized adheri ng to the principles of ALARA. FINDINGS: CT BRAIN: Dictated separately. CT ANGIOGRAM OF THE BRAIN: Moderate atherosclerosis of the imaged internal carotid arteries causing mild to moderate multifocal stenoses. There is high-grade stenoses of the supraclinoid segment right ICA. Mild multifocal stenose s of the middle cerebral arteries. The anterior cerebral arteries are patent. Calcified plaques in th e V4 segment right vertebral artery causes mild stenosis. Interval development of occlusion involving the left upper artery which involves the distal V2 segment, V3 and V4 segments. There is decreased f low within the left leg are compared to the right. Dural sinuses appear patent. No abnormal intracran ial enhancement. Age-indeterminate cerebellar lacunar infarcts which appear to have progressed from the prior MRI exam . IMPRESSION: 1. Age-indeterminate occlusion of the distal left vertebral artery. 2. Chronic and age indeterminate left cerebellar lacunar infarcts. 3. High-grade stenosis of the supraclinoid right ICA secondary to prominent atherosclerosis. ACT 112: Negative or not required by law. The above report was generated using voice recognition software. It may contain grammatical, syntax o r spelling errors. Electronically signed by: Andre Pineda M.D. 11/09/2025 11:10 AM
--- NOTE | 2025-11-09 11:11 | CT Scan Report ---
CT SCAN OF THE BRAIN WITHOUT IV CONTRAST CLINICAL HISTORY: Neuro deficit, acute stroke suspected. COMPARISON STUDY: MRI of the brain January 17, 2023. Head CT October 11, 2025. TECHNIQUE: Unenhanced axial CT scan of the brain was performed from the vertex to the skull base. A dose lowering technique was utilized adhering to the principles of ALARA. FINDINGS: This exam is mildly compromised by artifact. No acute intracranial hemorrhage, midline shif t or mass effect is present. Ventricular system is stable asymmetric dilatation of the left lateral v entricle. Basal cisterns are patent. There are no extra-axial collections. Left frontal encephalomala michi consistent with old infarct is unchanged. Hypodensity within the left cerebellar hemisphere measu ring approximately 2.3 cm in extent is noted. This is age indeterminate and may have been present on prior CT. There are no calvarial fractures. IMPRESSION: 1. No acute intracranial hemorrhage. No mass effect. 2. 2.3 cm hypodense focus within the left cerebellar hemisphere. This represents an age indeterminate ischemic change. 3. Old left frontal lobe infarct. ACT 112: Negative or not required by law. Electronically signed by: Blair Robles M.D. 11/09/2025 11:10 AM
[2025-11-09 11:33] LABS: INR 1.1 (0.9-1.1); Partial Thromboplastin Time 27 Seconds (21-31); Prothrombin Time 11.3 Seconds (9.0-12.0)
--- NOTE | 2025-11-09 12:01 | XRay Report ---
XR chest 1V portable HISTORY: 85 years-old Male neuro deficit, acute stroke suspected COMPARISON: Chest radiograph 10/12/2025 TECHNIQUE: AP view the chest FINDINGS: Cardiac silhouette is enlarged. Hiatal hernia. Right IJ dual-lumen hemodialysis catheter again noted. Coronary arterial stent. Surgical clips project over the left hilum. Pulmonary vascular congestion w ith interstitial coarsening. Blunting of the costophrenic angles with ill-defined mid and lower lung zone pulmonary opacities again noted. Degenerative changes of the shoulders and spine. IMPRESSION: 1. Cardiomegaly with suggestion of pulmonary edema. 2. Trace pleural effusions suggested with mild bibasilar densities favoring atelectasis. 3. Hiatal hernia. ACT 112: Negative or not required by law. The above report was generated using voice recognition software. It may contain grammatical, syntax o r spelling errors. Electronically signed by: Andre Pineda M.D. 11/09/2025 12:00 PM
--- NOTE | 2025-11-09 12:10 | History & Physical Report ---
Date of Service November 09, 2025 Assessment & Plan (1) AMS (altered mental status): Plan: Patient is 85 year old male with PMH chronic HFpEF, CAD s/p stent, h/o in-stent restenosis , PVD, history AAA repair, TIA, history of carotid endarterectomy, HTN, HLD, history of lung cancer s/p surgery, chronic anemia, ESRD on HD, chronic hypoxic respiratory failure on 2L oxygen and others listed below presented to ER from [facility] for AMS today DDx: metabolic encephalopathy with possible complicated Albert catheter associated UTI, delirium, CVA, seizure/post ictal In ER Afebrile, P: 67, R: 20, BP 159/90 noted to drop to 88% on room air up to 93% on 2 L via nasal cannula No leukocytosis, VBG: pH: 7.42, CO2: 46, glucose: 104, remaining electrolytes without significant abnormality, procalcitonin: 0.39 UA: 3+ leuk esterase,> 50 WBC UA obtained after Albert catheter changed in ER on 11/09/2025 CT head: No acute intracranial hemorrhage. No mass effect. 2.3 cm hypodense focus within the left cerebellar hemisphere. This represents an age indeterminate ischemic change. Old left frontal lobe infarct. CTA head: Age-indeterminate occlusion of the distal left vertebral artery. Chronic and age indeterminate left cerebellar lacunar infarcts. High-grade stenosis of the supraclinoid right ICA secondary to prominent atherosclerosis. CTA neck: There is approximately 50% stenosis at the origin of the right internal carotid artery. The right carotid vessels are otherwise patent. Postsurgical change is suggested involving the left carotid bulb. There is moderate to high-grade stenosis at the origin of the left external carotid artery. The left carotid vessels are otherwise patent. There is moderate focal stenosis at the origin of the dominant right vertebral artery. The right vertebral artery is otherwise patent. There is high-grade stenosis with near-complete occlusion at the origin of the left vertebral artery. The proximal and mid portions of the vessel are patent with diminished flow. 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 The visualized intracranial portions are occluded. This represents a change from 01/16/2023. CXR: Cardiomegaly with suggestion of pulmonary edema. Trace pleural effusions suggested with mild bibasilar densities favoring atelectasis. Hiatal hernia. During ER course patient continues to be encephalopathic Urine culture pending Obtain blood culture Per [facility] rec patient started on Bactrim 11/07/2025 for UTI Start on Rocephin NPO for now Aspiration precautions Fall precautions May need to consider EEG Discussed patients condition and current work up and differential diagnosis with son, Reymundo, and he doesn't want to pursue MRI brain at this time. He would not want patient transferred and would not want invasive measures. He confirms DNR/DNI status. Would like to treat for possible infection and continue HD for now. If patient would not improve or to continue to decline would like palliative/comfort care. His phone number is [phone]. He lives in [place] and is planning on coming up to see patient later today or tomorrow (weather dependent) Plan for repeat CT head tomorrow to reevaluate CBC, BMP, magnesium, phosphorus labs in am #CVA # TIA #History of carotid endarterectomy #History PVD Old CVA and age indeterminate ischemic change noted on CT head today Hold aspirin, atorvastatin, Plavix for now while NPO #BPH #Chronic Albert Catheter Resume tamsulosin when able to take po #Elevated troponin Troponin: 37, 44 Chronically elevated troponin, ESRD EKG in am #Chronic HFpEF 08/22/2025 echo: EF: 55-60%, grade 1 diastolic dysfunction, mild pulmonic valve regurgitation, mild mitral regurgitation, mild aortic stenosis, mild aortic regurgitation, mild tricuspid regurgitation Hold home torsemide for now Will plan to monitor volume status #ESRD on HD on MWF Missed HD today Nephrology consult for assistance with HD. #Chronic hypoxic respiratory failure #Hx of cancer of lung: S/p lobectomy 2011 On 2L oxygen via NC - Reportedly uses intermittently Today in ER noted to be hypoxic 88% up to 95% on 2L via NC Continue 2L oxygen #CAD #HTN CAD s/p stent, h/o in-stent restenosis Holding home aspirin, Plavix, atorvastatin, isosorbide, ranolazine while NPO. Plan to convert metoprolol succinate to IV Lopressor for now #Chronic Anemia Hgb: 9.6. Baseline 9-10 Monitor H&H #AAA (abdominal aortic aneurysm): History of AAA repair 2016 #GERD (gastroesophageal reflux disease): Hold home oral PPI and famotidine while npo, PPI IV daily for now #Hx of gout: Hold allopurinol until can take po DVT Prophylaxis SCDs for now Admit med tele DNR/DNI as per discussion with pt's son Follows with Dr Jasso for routine care SonReymundo Pt was seen and care coordinated with Dr Reveles. See addendum I spent a total of 78 minutes reviewing notes, outpatient records, labs, medication, coordinating, documenting and providing care for this patient excluding time spent in the performance of separately billed services and excluding time spent by another provider/QHP. History of Present Illness Chief Complaint: AMS Primary Care Provider: [facility] Patient is 85 year old male with PMH chronic HFpEF, CAD s/p stent, h/o in-stent restenosis , PVD, history AAA repair, TIA, history of carotid endarterectomy, HTN, HLD, history of lung cancer s/p surgery, chronic anemia, ESRD on HD, chron ic hypoxic respiratory failure on 2L oxygen and others listed below presented to ER from [facility] for AMS today. Per inpatient chart review Recent [facility] hospitalization 10/11/2025-10/14/2025 for UTI treated with 3 days IV Rocephin. Urine culture grew out Elke that was felt to be colonization. Per ER physician and [facility] staff patient last known well around 3:00PM yesterday. It is reported patient was found this morning to be somnolent and not arousable and was sent to ER. Discussion with patient's Son, Reymundo on Phone. Reymundo lives in [place]. Son states that he talks to patient on phone daily however didn't talk to him yesterday as he didn't answer his phone. It is reported two days ago talked to him on phone and was able to converse and seemed to be at his recent baseline. Son states in past month significant change in patient with physical and cognitive decline. Son reports was previously in personal care at [facility] but now in senior care and since son reports patient has been confused frequently thinking he in hospital and not at SNF. Reports patient decreased appetite and decreased oral intake and recurrent falls. Son reports has had multiple conversations with patient that if he would decline he would wish to pursue palliative approach, however has been continuing HD for now. Per review of [facility] medications patient was started on Bactrim on 11/07/25 for UTI. UA and urinalysis unable for review at this time. Allergies Allergy/AdvReac Type Severity Reaction Status Date / Time Penicillins Allergy Intermediate Rash Verified 10/11/25 15:08 Home Medications Medication Instructions Recorded Confirmed Type allopurinol 100 mg tablet 100 mg PO WK 08/24/21 11/09/25 History cholecalciferol (vitamin D3) 50 50 mcg PO QAM 08/24/21 11/09/25 History mcg (2,000 unit) tablet (Vitamin D3) clopidogrel 75 mg tablet 75 mg PO QAM 08/24/21 11/09/25 History aspirin 81 mg tablet,delayed 81 mg PO 3XWK 01/02/24 11/09/25 History release albuterol sulfate 90 mcg/actuation 2 puff inhalation Q6H PRN 03/18/25 11/09/25 History aerosol inhaler Cough/Wheezing bisacodyl 10 mg rectal suppository 10 mg ME Q24H PRN Constipation 03/18/25 11/09/25 History famotidine 10 mg tablet 10 mg PO HS 03/18/25 11/09/25 History nitroglycerin 0.4 mg sublingual 0.4 mg sublingual DIRECTED PRN 03/18/25 11/09/25 History tablet Chest Pain ondansetron HCl 4 mg tablet 4 mg PO DAILYBB 03/18/25 11/09/25 History sennosides 8.6 mg-docusate sodium 1 tab-cap PO HS 03/18/25 11/09/25 History 50 mg tablet (Senna Plus) tamsulosin 0.4 mg capsule 0.4 mg PO DAILY 03/18/25 11/09/25 History calcium carbonate 500 mg PO Q6H PRN Indigestion 08/21/25 11/09/25 History hydrocortisone 2.5 % topical cream 1 applic topical Q6H PRN Rectal 08/21/25 11/09/25 History with perineal applicator Pain/Itchiness (Procto-Med HC) calcium carbonate (Tums) 250 mg (1.25 x 200 mg calcium (500 08/24/25 11/09/25 Rx mg)) PO QID PRN dyspepsia #30 tabs melatonin 3 mg tablet 3 mg PO HS PRN sleep #30 tabs 08/24/25 11/09/25 Rx pantoprazole 40 mg tablet,delayed 40 mg PO QAM #30 tabs 08/24/25 11/09/25 Rx release ranolazine 500 mg tablet,extended 500 mg PO BID #30 tabs 08/24/25 11/09/25 Rx release,12 hr acetaminophen 325 mg tablet 650 mg PO Q4H PRN PAIN/TEMP >100F 10/11/25 11/09/25 History (Tylenol) amlodipine 5 mg tablet 5 mg PO DAILY 10/11/25 11/09/25 History atorvastatin 10 mg tablet 10 mg PO HS 10/11/25 11/09/25 History ipratropium 0.5 mg-albuterol 3 mg 3 ml inhalation Q8H PRN 10/11/25 11/09/25 History (2.5 mg base)/3 mL nebulization CONGESTION/WHEEZING soln isosorbide mononitrate 60 mg 60 mg PO QAM 10/11/25 11/09/25 History tablet,extended release 24 hr lutein 25 mg-zeaxanthin 5 mg 1 cap PO 3XWK 10/11/25 11/09/25 History capsule (Ocuvite Blue Light) metoprolol succinate 25 mg 25 mg PO BID 10/11/25 11/09/25 History tablet,extended release 24 hr sulfamethoxazole 800 0.5 tab PO QPM 10/11/25 11/09/25 History mg-trimethoprim 160 mg tablet (Bactrim DS) hydrocortisone 2.5 % topical cream 1 applic topical Q6H PRN Rectal 11/09/25 11/09/25 History Discomfort sodium phosphates 19 gram-7 118 ml ME DAILY PRN Constipation 11/09/25 11/09/25 History gram/118 mL enema (Fleet Enema) torsemide 40 mg tablet 40 mg PO DAILY 11/09/25 11/09/25 History zinc oxide-cod liver oil 40 % 1 applic topical DAILY PRN Rash 11/09/25 11/09/25 History topical paste (Desitin) Past Med/Surg History Problem List (Updated 11/09/25 @ 18:30 by Jenna Cowan MD, PhD) Goals of care, counseling/discussion ESRD (end stage renal disease) on dialysis AMS (altered mental status) Decubitus ulcer of buttock BPH with obstruction/lower urinary tract symptoms Fall from standing UTI (urinary tract infection) due to urinary indwelling Albert catheter Abnormal EKG (Acute) Fall (Acute) Anemia (Acute) Urinary tract infection (Acute) Generalized muscle weakness (Acute) Weakness Paroxysmal supraventricular tachycardia (Acute) New onset left bundle branch block (LBBB) (Acute) ESRD on hemodialysis (Acute) Elevated troponin (Acute) Chest pain (Acute) Urinary retention New onset left bundle branch block (LBBB) Right coronary artery occlusion ASCVD (arteriosclerotic cardiovascular disease) Aortic stenosis Chest pain at rest ESRD on hemodialysis Chronic hypoxic respiratory failure, on home oxygen therapy Chronic heart failure with preserved ejection fraction Hypertension, uncontrolled Anemia, chronic renal failure Elevated brain natriuretic peptide (BNP) level (Acute) Non-ST elevation VT (NSTEMI) (Acute) Anemia (Acute) Chest pain (Acute) Pleural effusion (Acute) CHF (congestive heart failure) (Acute) Flash pulmonary edema Bradycardia Encephalopathy acute Acute on chronic renal failure Aortic stenosis, moderate Acute heart failure with preserved ejection fraction Acute on chronic heart failure with normal ejection fraction BPH (benign prostatic hyperplasia) Hx of gout Hx of cancer of lung Chronic diastolic heart failure Hypertensive urgency SOB (shortness of breath) Palpitations Dyspnea (Acute) Brain TIA (Acute) Confusion (Acute) Expressive aphasia (Acute) Encephalopathy (Acute) TIA (transient ischemic attack) BPH loc w urin obs/LUTS Encounter for pre-operative examination HLD (hyperlipidemia) AAA (abdominal aortic aneurysm) GI bleed Chest pain Precordial chest pain (Acute) Anemia (Acute) Acute GI bleeding (Acute) Elevated troponin (Acute) Anemia recently admitted to [facility] for this GERD (gastroesophageal reflux disease) HTN (hypertension) (Acute) CAD (coronary atherosclerotic disease) "S/P LAD stent" Medical History Acute kidney injury superimposed on chronic kidney disease COVID-19 History of GI bleed 07/25/22, pt recently admitted to [facility] for gi bleed. pt "unsure of all the details, but know that I was anemic and had a couple pints of blood." Poor historian Hearing deficit bilat CORREA's Stomach ulcer pt "thinks it's gone now" Arthritis TIA (transient ischemic attack) X 2 "a few years ago was last one" Surgical History History of colonoscopy History of tooth extraction History of tonsillectomy and adenoidectomy H/O heart artery stent X 4 (? DATE-"maybe 5 years ago" "LAST 2 STENTS PLACED AT [facility], OTHER 2 AT [facility]") S/P lobectomy of lung History of left-sided carotid endarterectomy H/O aortic aneurysm repair 2014 AT [facility] Family History Other No family history of adverse response to anesthesia No significant family history Social History Smoking Status: Unknown if ever smoked Tobacco Type: Cigarettes Second Hand Exposure: No; Do You Dip or Chew Tobacco: No; Hx Alcohol Use: No Hx Substance Use: No Preferred Language: Swiss Communication Ability: Effective Communication Ability Comment: Pt is Confused Bioinformatics Support Specialist Required: No Beliefs That Will Affect Care: None Current Living Situation: [facility] Current Living Situation Comment: [facility] How many Children do You have: 1 Feels Safe at Home: Yes Assistive Devices: Glasses, Oxygen - Continuous, Walker and Wheelchair Review of Systems Review of Systems: Unobtainable due to cognitive status Physical Exam Physical Exam: General: +confused elderly male, appears WDWN Head: normocephalic, atraumatic Eyes: Unable to test EOM's, Pt eyes partially open and pt closes eyes tightly with examination with light and unable to fully examine eyes, however pupils appear sluggish reactive to light. intact, conjunctiva non-injected, anicteric ENT: normal inspection external ears, nose, mucous membranes dry with dried blood noted in mouth Neck: supple, trachea midline Lungs: no respiratory distress on current 2L via NC, sat 95%, +coarse breath sounds , no wheezing/rhonchi/rales CV: RRR, + murmur, trace pretibial edema Abd: normal BS, soft, no apparent tenderness to palpation Ext: no cyanosis, no calf tenderness Neuro: +somnolent, does open eyes partially, does not follow commands, not verbal at this time, +withdrawals hands and feet to touch but not moving extremities otherwise Skin: warm, dry Results & Data Results & Data Vital Signs (Past 12 Hours) Vital Signs Temp Pulse Pulse Resp BP BP Pulse Ox 11/09/25 11:00 64 17 164/86 H 96 11/09/25 10:56 58 L 20 156/82 H 93 11/09/25 10:53 61 11/09/25 10:40 88 L 11/09/25 09:55 36.6 C 67 20 159/90 H 94 O2 Del Method O2 Flow Rate 11/09/25 11:00 11/09/25 10:56 Nasal Cannula 2 11/09/25 10:53 11/09/25 10:40 Room Air, Nasal Cannula 0 11/09/25 09:55 Room Air Laboratory Results Short CBC 11/09/25 Range/Units 09:50 WBC 6.20 (4.8-10.8) K/ul Hgb 9.6 L (14.0-18.0) g/dL Hct 30.1 L (42.0-52.0) % Plt Count 174 (130-400) K/uL BMP 11/09/25 09:50 Sodium 138 Potassium 3.8 Chloride 103 Carbon Dioxide 30 BUN 35 H Creatinine 4.53 H* Glucose 104 H Calcium 8.9 Liver Function 11/09/25 Range/Units 09:50 Total Bilirubin 0.5 (0.2-1.0) mg/dl AST 11 L (13-39) U/L ALT 5 L (7-52) U/L Alkaline Phosphatase 76 (34-104) U/L Albumin 2.6 L (3.4-5.0) gm/dl Urine 11/09/25 Range/Units 12:08 Urine Color Yellow Urine Appearance Cloudy A (Clear) Urine pH 8.0 H (4.5-7.5) Ur Specific B[place] 1.022 (1.000-1.030) Urine Protein 1+ H (Negative) Urine Glucose (UA) 1+ H (Negative) Diagnostic Findings Chest X-Ray 11/09/25 10:15 XR chest 1V portable HISTORY: 85 years-old Male neuro deficit, acute stroke suspected COMPARISON: Chest radiograph 10/12/2025 TECHNIQUE: AP view the chest FINDINGS: Cardiac silhouette is enlarged. Hiatal hernia. Right IJ dual-lumen hemodialysis catheter again noted. Coronary arterial stent. Surgical clips project over the left hilum. Pulmonary vascular congestion with interstitial coarsening. Blunting of the costophrenic angles with ill-defined mid and lower lung zone pulmonary opacities again noted. Degenerative changes of the shoulders and spine. IMPRESSION: 1. Cardiomegaly with suggestion of pulmonary edema. 2. Trace pleural effusions suggested with mild bibasilar densities favoring atelectasis. 3. Hiatal hernia. ACT 112: Negative or not required by law. The above report was generated using voice recognition software. It may contain grammatical, syntax or spelling errors. Electronically signed by: Andre Pineda M.D. 11/09/2025 12:[address] 11/09/25 10:15 CT SCAN OF THE BRAIN WITHOUT IV CONTRAST CLINICAL HISTORY: Neuro deficit, acute stroke suspected. COMPARISON STUDY: MRI of the brain January 17, 2023. Head CT October 11, 2025. TECHNIQUE: Unenhanced axial CT scan of the brain was performed from the vertex to the skull base. A dose lowering technique was utilized adhering to the principles of ALARA. FINDINGS: This exam is mildly compromised by artifact. No acute intracranial hemorrhage, midline shift or mass effect is present. Ventricular system is stable asymmetric dilatation of the left lateral ventricle. Basal cisterns are patent. There are no extra-axial collections. Left frontal encephalomalacia consistent with old infarct is unchanged. Hypodensity within the left cerebellar hemisphere measuring approximately 2.3 cm in extent is noted. This is age indeterminate and may have been present on prior CT. There are no calvarial fractures. IMPRESSION: 1. No acute intracranial hemorrhage. No mass effect. 2. 2.3 cm hypodense focus within the left cerebellar hemisphere. This represents an age indeterminate ischemic change. 3. Old left frontal lobe infarct. ACT 112: Negative or not required by law. Electronically signed by: Blair Robles M.D. 11/09/2025 11:10 AM Head CTA 11/09/25 10:15 CT angio head w con CLINICAL HISTORY: 85 years-old Male with neuro deficit, acute stroke suspected. Acute stroke like symptoms COMPARISON STUDY: Head CT same day and also 10/11/2025, CTA head dated 01/16/2023, MRI 01/17/2023. TECHNIQUE: Following the IV administration of 112 cc of Optiray, CT angiogram of the brain was performed from the skull base to the vertex. Images are reviewed in the axial, sagittal, and coronal planes. 3-D MIPS images are created and assessed. IV contrast was administered without complication. All measurements were obtained according to NASCET criteria. A dose lowering technique was utilized adhering to the principles of ALARA. FINDINGS: CT BRAIN: Dictated separately. CT ANGIOGRAM OF THE BRAIN: Moderate atherosclerosis of the imaged internal carotid arteries causing mild to moderate multifocal stenoses. There is high-grade stenoses of the supraclinoid segment right ICA. Mild multifocal stenoses of the middle cerebral arteries. The anterior cerebral arteries are patent. Calcified plaques in the V4 segment right vertebral artery causes mild stenosis. Interval development of occlusion involving the left upper artery which involves the distal V2 segment, V3 and V4 segments. There is decreased flow within the left leg are compared to the right. Dural sinuses appear patent. No abnormal intracranial enhancement. Age-indeterminate cerebellar lacunar infarcts which appear to have progressed from the prior MRI exam. IMPRESSION: 1. Age-indeterminate occlusion of the distal left vertebral artery. 2. Chronic and age indeterminate left cerebellar lacunar infarcts. 3. High-grade stenosis of the supraclinoid right ICA secondary to prominent atherosclerosis. ACT 112: Negative or not required by law. The above report was generated using voice recognition software. It may contain grammatical, syntax or spelling errors. Electronically signed by: Andre Pineda M.D. 11/09/2025 11:10 AM Neck CTA 11/09/25 10:15 CT ANGIOGRAM OF THE NECK CLINICAL HISTORY: Neurological deficit. Stroke like symptoms. COMPARISON STUDY: CT angiogram of the neck dated 01/16/2023 TECHNIQUE: Following the IV administration of 112 of Optiray 320, CT angiogram of the neck was performed from the aortic arch to the skull base. Images are reviewed in the axial, sagittal, and coronal planes. 3-D MIPS images are created and assessed. IV contrast was administered without complication. All measurements were calculated based on NASCET criteria. A dose lowering technique was utilized adhering to the principles of ALARA. CT DOSE: 1964.63 mGy.cm FINDINGS: Thoracic aorta: There is atherosclerotic calcification of the thoracic aorta. Visualized portions of the thoracic aorta are normal in caliber. The aortic arch demonstrates bovine variant anatomy. Right carotid arterial system: The right common carotid artery is widely patent. There is advanced atherosclerotic plaque in the carotid bulb which causes approximately 50% stenosis of the origin of the right internal carotid artery. The right internal and external carotid arteries are otherwise patent. Left carotid arterial system: The left common carotid artery is widely patent, as is the left internal carotid artery no definite advanced atherosclerotic plaque and irregularity. Postsurgical changes suggested adjacent to the carotid bulb. There is moderate to high-grade focal stenosis at the origin of the left external carotid artery. The left external carotid artery is otherwise clear. Vertebral arteries: There is moderate focal stenosis of the origin of the right vertebral artery. The right vertebral artery is dominant and otherwise otherwise widely patent. There is high-grade stenosis with near-complete occlusion at the origin of the left vertebral artery. The proximal left vertebral artery is patent. 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 Intracranial vasculature:. The visualized intracranial portions of the left vertebral artery are thrombosed. The remaining Visualized intracranial vessels at the skull base are patent. Jugular veins: A right internal jugular central venous catheter is in place. The jugular veins are patent bilaterally. Brain parenchyma: The visualized brain parenchyma the skull base is within normal limits. Lung apices: Emphysematous change is noted. The visualized apical lung parenchyma otherwise appears clear. Soft tissues: The visualized pharyngeal soft tissues are normal in appearance noting angiographic phase technique. The oropharyngeal airway appears widely patent. The thyroid gland is atrophic and heterogeneous. The salivary glands are normal in appearance. No cervical lymphadenopathy is seen. Skeletal structures: The skeletal structures are osteopenic. The visualized calvarium at the skull base appears intact. The imaged cervical spine is maintained noting advanced spondylosis. Sinuses and mastoids: The visualized paranasal sinuses are clear. The mastoid air cells are well pneumatized. IMPRESSION: 1. There is approximately 50% stenosis at the origin of the right internal carotid artery. The right carotid vessels are otherwise patent. 2. Postsurgical change is suggested involving the left carotid bulb. There is moderate to high-grade stenosis at the origin of the left external carotid artery. The left carotid vessels are otherwise patent. 3. There is moderate focal stenosis at the origin of the dominant right vertebral artery. The right vertebral artery is otherwise patent. 4. There is high-grade stenosis with near-complete occlusion at the origin of the left vertebral artery. The proximal and mid portions of the vessel are patent with diminished flow. 5. 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 The visualized intracranial portions are occluded. This represents a change from 01/16/2023. 6. Emphysema. ACT 112: Negative or not required by law. Electronically signed by: Rylan Ho M.D. 11/09/2025 11:10 AM Supervising Physician Co-Signing Physician Notes Attending Addendum: Case reviewed with the advanced practitioner. I have personally performed a history and physical examination on the patient. I have reviewed the advanced practitioner's documentation on the date of service referenced in note, and I agree with, and take responsibility for the plan of care. please refer to her notes for full details patient seen and examined, records reviewed by myself as well on exam, patient seen resting in bed, on 2 L NC tries to keep his eyes open but very drowsy, mostly staring blankly into space, moving without any purpose but not in distress or pain does not answer questions nor follow commands no other symptoms VS noted and reviewed drowsy , not in distress,breathing with no effort nor accessory muscle use normal rate, regular rhythm, no murmurs clear breath sounds bilaterally non distended, soft, nontender no bipedal edema, erythema, warmth no neuro deficits all labs, imaging noted and reviewed ASSESSMENT AND PLAN> Encephalopathy, in the setting of ESRD,etiology unclear Rule out acute CVA Rule out underlying infection including UTI, bacteremia last dialysis was 2 days ago, dialysis sessions Wednesdays Started with Bactrim as an outpatient a couple of days ago for possible UTI, ceftriaxone ordered ( around 530pm, notified by RN as patient was noted to be having tongue swelling and Some shortness of breath Assessed at the bedside,more alert, noted tongue edema, not in respiratory distress, no wheezing, no hives IV Benadryl and Solu-Medrol ordered, ceftriaxone changed to aztreonam Patient's son Damian at the bedside, Agree with the plan Would like to have a discussion with Nutrition Services Associate tomorrow regarding further dialysis treatment as patient seems to be declining recently) repeat CT head tomorrow to r/o acute CVA ff up cultures other diagnoses and plan of care as per advanced practitioner's notes I spent a total of 35 minutes coordinating, documenting, and providing care for this patient, excluding time spent in the performance of separately billed services or time spent by another provider/QHP. Peterson Reveles MD
[2025-11-09 13:01] LABS: Appearance Urine Cloudy (Clear); Bacteria Urine Automated None Seen (None Seen); Epithelial Cell Urine Auto 0-2 /hpf (0-2); Glucose Urine UA 1+ (Negative); WBC Urine Automated >50 /hpf (0-5)
[2025-11-09] MEDS: cefTRIAXone SODIUM 2,000 MG/50 ML BAG IV STA (13:16)
[2025-11-09 13:22] LABS: Base Excess VBG 4.5 mEq/L; HCO3 VBG 30 mmol/L; Oxygen Saturation VBG < 60.0 %; PCO2 VBG 46 mmHg (38-50); PO2 VBG 34 mmHg; pH VBG 7.42 (7.36-7.41)
[2025-11-09] MEDS ORDERED: SODIUM CHLORIDE 0.9% 1,000 ML IV PRN (13:35)
[2025-11-09 14:27] LABS: Amphetamines+Metham, Urine Neg (Neg); MDMA (Ecstacy), Urine Neg (Neg); Marijuana, Urine Neg (Neg)
[2025-11-09] MEDS: D5W AND NSS 1,000 ML IV SCH (16:02)
--- NOTE | 2025-11-09 17:25 | Nephrology Consultation ---
Date of Consultation November 09, 2025 Assessment & Plan (1) AMS (altered mental status): Differential is broad, ranging from stroke to infection to medication toxicity though no medications identified to cause this to encephalopathy from missed dialysis, though again this is more severe than I would expect from missing 1 treatment Supportive care Family has declined MRI for this patient and he is too restless to have a meaningful study in any event (2) ESRD (end stage renal disease) on dialysis: Missed dialysis today and cut treatment short by at least half an hour on November 09 for unknown reasons. Electrolytes are acceptable with potassium 3.8; hemoglobin 10.5 again acceptable. He does have evidence of volume overload (hypertension and vascular congestion on x-ray); that said no emergent dialysis indicated. Will observe and see if antibiotics improve his status before attempting treatment Reevaluate in the morning for possible HD treatment Son requests that he be contacted to discuss before starting any dialysis tomorrow Dialyzing via tunneled line at this time and will follow-up pending blood cultures (3) UTI (urinary tract infection) due to urinary indwelling Liu catheter: Chronic Liu which he recently opted to maintain; follow-up pending urine culture; on empiric aztreonam (4) Goals of care, counseling/discussion: I have worked with this patient and his son for several years. Patient recently started hemodialysis chronically and has had several setbacks in his health in the same timeframe with worsening functional status increasing weakness. It was understood from when we started him on dialysis treatments that he might not tolerate them and that his focus was on quality of life more than quantity. Low threshold depending on clinical status to stop treatment. Son is aware and supportive as was patient when I spoke to him at outpatient dialysis on this issue. Plan for now if he improves is to continue dialysis but quite possible the decision will be made to transition to comfort measures and stop these treatments if no improvement or no anticipation of increased quality of life History of Present Illness Reason for Consultation: ESRD on HD Requesting Physician: Dr Reveles Attending Physician: Peterson Reveles MD History of Present Illness 85 y/o M whom I'm asked to see for ESRD was admitted today for encephalopathy and w/ missed HD. PMH includes ESRD on HD via TDC at [facility] under my care, ASCVD s/p remote LAD PCI w/ instent restenosis x 2, aortic valve stenosis, PAD, history of TIA status post left carotid endarterectomy, AAA status post repair, history of lung cancer left lower lobe lung resection, COPD, chronic respiratory failure on 2 L supplemental O2, HL, chronic urinary retention w/ chronic liu since at least August. Patient was recently admitted from 08/21/25-08/25/25 for chest pain and SVT. Recently admitted here for complicated UTI in setting of chronic liu and w/ a fall from 10/11-10/14. He cut short HD on 11/07 by 30 minutes for unknown reasons > has been having chronic sacral decubitus pain frequently at txs and overall having worse functional status. Patient seen and evaluated this evening. His son is at bedside. Patient is obtunded and not able to follow commands or to speak. Therefore no review of systems obtained. Son tells me he had talked to the patient day before yesterday and things were okay but patient's condition deteriorated abruptly last evening and this morning. Allergies Allergy/AdvReac Type Severity Reaction Status Date / Time Penicillins Allergy Intermediate Rash Verified 10/11/25 15:08 Home Medications Medication Instructions Recorded Confirmed Type allopurinol 100 mg tablet 100 mg PO WK 08/24/21 11/09/25 History cholecalciferol (vitamin D3) 50 50 mcg PO QAM 08/24/21 11/09/25 History mcg (2,000 unit) tablet (Vitamin D3) clopidogrel 75 mg tablet 75 mg PO QAM 08/24/21 11/09/25 History aspirin 81 mg tablet,delayed 81 mg PO 3XWK 01/02/24 11/09/25 History release albuterol sulfate 90 mcg/actuation 2 puff inhalation Q6H PRN 03/18/25 11/09/25 History aerosol inhaler Cough/Wheezing bisacodyl 10 mg rectal suppository 10 mg MT Q24H PRN Constipation 03/18/25 11/09/25 History famotidine 10 mg tablet 10 mg PO HS 03/18/25 11/09/25 History nitroglycerin 0.4 mg sublingual 0.4 mg sublingual DIRECTED PRN 03/18/25 11/09/25 History tablet Chest Pain ondansetron HCl 4 mg tablet 4 mg PO DAILYBB 03/18/25 11/09/25 History sennosides 8.6 mg-docusate sodium 1 tab-cap PO HS 03/18/25 11/09/25 History 50 mg tablet (Senna Plus) tamsulosin 0.4 mg capsule 0.4 mg PO DAILY 03/18/25 11/09/25 History calcium carbonate 500 mg PO Q6H PRN Indigestion 08/21/25 11/09/25 History hydrocortisone 2.5 % topical cream 1 applic topical Q6H PRN Rectal 08/21/25 11/09/25 History with perineal applicator Pain/Itchiness (Procto-Med HC) calcium carbonate (Tums) 250 mg (1.25 x 200 mg calcium (500 08/24/25 11/09/25 Rx mg)) PO QID PRN dyspepsia #30 tabs melatonin 3 mg tablet 3 mg PO HS PRN sleep #30 tabs 08/24/25 11/09/25 Rx pantoprazole 40 mg tablet,delayed 40 mg PO QAM #30 tabs 08/24/25 11/09/25 Rx release ranolazine 500 mg tablet,extended 500 mg PO BID #30 tabs 08/24/25 11/09/25 Rx release,12 hr acetaminophen 325 mg tablet 650 mg PO Q4H PRN PAIN/TEMP >100F 10/11/25 11/09/25 History (Tylenol) amlodipine 5 mg tablet 5 mg PO DAILY 10/11/25 11/09/25 History atorvastatin 10 mg tablet 10 mg PO HS 10/11/25 11/09/25 History ipratropium 0.5 mg-albuterol 3 mg 3 ml inhalation Q8H PRN 10/11/25 11/09/25 History (2.5 mg base)/3 mL nebulization CONGESTION/WHEEZING soln isosorbide mononitrate 60 mg 60 mg PO QAM 10/11/25 11/09/25 History tablet,extended release 24 hr lutein 25 mg-zeaxanthin 5 mg 1 cap PO 3XWK 10/11/25 11/09/25 History capsule (Ocuvite Blue Light) metoprolol succinate 25 mg 25 mg PO BID 10/11/25 11/09/25 History tablet,extended release 24 hr sulfamethoxazole 800 0.5 tab PO QPM 10/11/25 11/09/25 History mg-trimethoprim 160 mg tablet (Bactrim DS) hydrocortisone 2.5 % topical cream 1 applic topical Q6H PRN Rectal 11/09/25 11/09/25 History Discomfort sodium phosphates 19 gram-7 118 ml MT DAILY PRN Constipation 11/09/25 11/09/25 History gram/118 mL enema (Fleet Enema) torsemide 40 mg tablet 40 mg PO DAILY 11/09/25 11/09/25 History zinc oxide-cod liver oil 40 % 1 applic topical DAILY PRN Rash 11/09/25 11/09/25 History topical paste (Desitin) Patient History Medical History Acute kidney injury superimposed on chronic kidney disease COVID-19 History of GI bleed 07/25/22, pt recently admitted to [facility] for gi bleed. pt "unsure of all the details, but know that I was anemic and had a couple pints of blood." Poor historian Hearing deficit bilat CORREA's Stomach ulcer pt "thinks it's gone now" Arthritis TIA (transient ischemic attack) X 2 "a few years ago was last one" Surgical History History of colonoscopy History of tooth extraction History of tonsillectomy and adenoidectomy H/O heart artery stent X 4 (? DATE-"maybe 5 years ago" "LAST 2 STENTS PLACED AT [facility], OTHER [address] [facility]") S/P lobectomy of lung History of left-sided carotid endarterectomy H/O aortic aneurysm repair 2013 AT [facility] Family History Other No family history of adverse response to anesthesia No significant family history Social History Smoking Status: Unknown if ever smoked Tobacco Type: Cigarettes Second Hand Exposure: No; Do You Dip or Chew Tobacco: No; Hx Alcohol Use: No Hx Substance Use: No Preferred Language: Turkmen Communication Ability: Effective Communication Ability Comment: Pt is Confused Telemarketing Manager Required: No Beliefs That Will Affect Care: None Current Living Situation: Prison [facility] How many Children do You have: 1 Feels Safe at Home: Yes Assistive Devices: Glasses, Oxygen - Continuous, Walker and Wheelchair Review of Systems 2 Review of Systems: Unobtainable due to reduced consciousness (Altered mental status) Physical Exam 2 Constitutional: well developed, well nourished, + ill appearing, + altered mental status and + frail appearing; + uncooperative Eyes: EOM intact bilaterally (looking around but not following /tracking) ENMT: Mouth: + dry oral mucous membranes Neck: no nuchal rigidity Respiratory: normal respiratory effort Auscultation: + diminished lung sounds Cardiovascular: Rate/Rhythm: + irregularly irregular Heart Sounds: + murmur Extremities: + AV fistula; no edema Gastrointestinal (Abdomen): Inspection/Auscultation: normal bowel sounds P ercussion/Palpation: abdomen soft; abdomen nontender Musculoskeletal: Extremities: strength 5/5 throughout Skin: no rashes, warm and dry Neurologic: larson, restless/fidgety, occasional myoclonic jerks; not interactive or following commands Results & Data Vital Signs (Past 12 Hours) Vital Signs Temp Pulse Pulse Resp BP BP Pulse Ox 11/09/25 16:00 68 18 168/92 H 93 11/09/25 14:00 71 20 162/105 H 95 11/09/25 12:09 67 16 162/109 H 95 11/09/25 12:00 65 18 167/90 H 96 11/09/25 11:33 69 18 162/95 H 93 11/09/25 11:00 64 17 164/86 H 96 11/09/25 10:56 58 L 20 156/82 H 93 11/09/25 10:53 61 11/09/25 10:40 88 L 11/09/25 09:55 36.6 C 67 20 159/90 H 94 O2 Del Method O2 Flow Rate 11/09/25 16:00 Nasal Cannula 2 11/09/25 14:00 Nasal Cannula 2 11/09/25 12:09 11/09/25 12:00 Nasal Cannula 11/09/25 11:33 11/09/25 11:00 11/09/25 10:56 Nasal Cannula 2 11/09/25 10:53 11/09/25 10:40 Room Air, Nasal Cannula 0 11/09/25 09:55 Room Air Laboratory Results 11/09/25 09:50 11/09/25 09:50
[2025-11-09] MEDS ORDERED: POLYETHYLENE (MIRALAX) 17 GM PACK PO PRN (17:46)
[2025-11-09] MEDS ORDERED: ONDANSETRON INJ 2 MG/ML 2 ML VIAL IV PRN (17:46)
[2025-11-09] MEDS ORDERED: PHARMACIST DISCHARGE MED REC CONSULT PRN (17:46)
[2025-11-09] MEDS ORDERED: ACETAMINOPHEN 1,000 MG/100 ML VIAL IV PRN (17:46)
[2025-11-09] MEDS ORDERED: GLUCOSE 10 TAB/TUBE PO PRN (17:46)
[2025-11-09] MEDS ORDERED: GLUCOSE 40% GEL 15 GM TUBE PO PRN (17:46)
[2025-11-09] MEDS ORDERED: DEXTROSE 50% 50 ML SYRINGE IV PRN (17:46)
[2025-11-09] MEDS ORDERED: CARBOHYDRATES FOR HYPOGLYCEMIA PO PRN (17:46)
[2025-11-09] MEDS ORDERED: GLUCAGON FOR INJ 1 MG VIAL SQ PRN (17:46)
[2025-11-09] MEDS: diphenhydrAMINE 50 MG/ML VIAL IV STA (17:47)
[2025-11-09] MEDS: METOPROLOL TARTRATE 1 MG/ML VIAL IV SCH (19:36)
[2025-11-09] MEDS: HEPARIN SOD (PORCINE) 1000 UNIT/ML IV SCH (19:39)
[2025-11-09] MEDS: HEPARIN SOD (PORCINE) 1000 UNIT/ML IV ONE (19:39)
[2025-11-10] MEDS: METOPROLOL TARTRATE 1 MG/ML VIAL IV SCH (00:24)
[2025-11-10 07:04] LABS: Hematocrit (blood only) 32.6 % (42.0-52.0); Hemoglobin 10.4 g/dL (14.0-18.0); Mean Corpuscular Hemoglobin 33.8 pg (25.0-34.0); Mean Corpuscular Volume 105.8 fL (80.0-100.0); Platelet Count 187 K/uL (130-400); RDW Standard Deviation 68.1 fL (36.4-46.3); Red Blood Count 3.08 M/uL (4.70-6.10); White Blood Count 4.45 K/ul (4.8-10.8)
[2025-11-10 07:36] LABS: Hemoglobin A1C 4.3 % (4.5-5.6)
[2025-11-10 07:50] LABS: Anion Gap 10 (3-11); Blood Urea Nitrogen 40 mg/dl (6-23); Calcium 9.0 mg/dl (8.6-10.3); Carbon Dioxide 25 mmol/L (21-32); Chloride 104 mmol/L (98-107); Cholesterol 110 mg/dl (0-200); Glucose 149 mg/dl (70-99(Fasting)); HDL Cholesterol 52 mg/dl; Magnesium 2.2 mg/dl (1.7-2.4); Potassium 4.2 mmol/L (3.5-5.1); Sodium 139 mmol/L (136-145); Triglycerides 56 mg/dl (0-150)
[2025-11-10] MEDS: PANTOprazole 40 MG/10 ML SYR IV SCH (08:44)
[2025-11-10] MEDS ORDERED: cefTRIAXone SODIUM 2,000 MG/50 ML BAG IV SCH (09:00)
--- NOTE | 2025-11-10 09:01 | CT Scan Report ---
CT head/brain wo con CLINICAL HISTORY: 85 years-old Male with repeat eval for stroke. Acutely altered mental status with stroke like symptoms TECHNIQUE: Multiple axial CT images of the head were obtained without contrast. A dose lowering tech nique was utilized adhering to the principles of ALARA. CT DOSE: 781.9 mGy.cm COMPARISON: 11/09/2025 FINDINGS: This exam is again compromised by motion artifact. No acute intracranial hemorrhage, midline shift or mass effect is present. Ventricular system is stable asymmetric dilatation of the left lateral ventr icle. Basal cisterns are patent. There are no extra-axial collections. 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 Hypodensity within the left cerebellar hemisphere m easuring approximately 2.3 cm in extent is also unchanged. There are no calvarial fractures. IMPRESSION: 1. No acute intracranial hemorrhage or acute cerebral infarct. 2. 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 3. Chronic findings as above. ACT 112: Negative or not required by law. The above report was generated using voice recognition software. It may contain grammatical, syntax o r spelling errors. Electronically signed by: Andre Pineda M.D. 11/10/2025 8:59 AM
--- NOTE | 2025-11-10 11:03 | Nephrology Progress Note ---
Date of Service November 10, 2025 Assessment & Plan (1) AMS (altered mental status): Plan: Differential is broad, ranging from stroke to infection to medication toxicity though no medications identified to cause this to encephalopathy from missed dialysis, though again this is more severe than I would expect from missing 1 treatment Extensive discussion with son. Family feels patient has been declining for month or so and is not tolerating dialysis. Family have decided to transition to hospice care (2) ESRD (end stage renal disease) on dialysis: Plan: Patient is not tolerating dialysis and now has AMS and possible CVA. Family do not want to continue dialysis. Will consult hospice. Patient can be discharged back to the facility on hospice. (3) UTI (urinary tract infection) due to urinary indwelling Albert catheter: Plan: Chronic Albert which he recently opted to maintain for comfort (4) Goals of care, counseling/discussion: Plan: Extensive goals of care discussion. Family would like to transition to hospice. Admission and Anticipated Discharge Date Admission Date: November 09, 2025 Subjective Seen for ESRD. No SOB or leg swelling. Patient answers few questions due to AMS and dysarthria. Son at the bedside. Review of Systems 2 Review of Systems: Unable to obtain due to AMS Physical Exam 2 Physical Exam: General exam: Appears comfortable, no acute distress HEENT: Pupils are equal and reactive to light Neck: No JVD, neck is supple trachea is midline Respiratory system: Clear breath sounds bilaterally. Gastrointestinal: Abdomen is soft, non distended, non tender, bowel sounds are present CVS: Regular rate and rhythm. No murmurs, rubs or gallops Musculoskeletal: No joint or muscle tenderness Extremities: Non tender, no edema, peripheral pulses are present Neuro: dysarthric, left hemiparesis Skin: No rashes Results & Data Vital Signs (Past 12 Hours) Vital Signs Temp Pulse Pulse Resp BP Pulse Ox O2 Del Method 11/10/25 07:35 36.5 C 59 L 20 188/71 H 93 Nasal Cannula 11/10/25 05:29 52 L 11/10/25 02:29 36.7 C 53 L 16 186/74 H 97 Nasal Cannula 11/10/25 00:24 52 L O2 Flow Rate 11/10/25 07:35 2 11/10/25 05:29 11/10/25 02:29 2 11/10/25 00:24 Laboratory Results 11/10/25 06:47 11/09/25 11/10/25 09:50 06:47 WBC 4.45 L RBC 3.08 L MCV 105.8 H MCH 33.8 MCHC 31.9 L RDW Std Deviation 68.1 H RDW Coeff of Serene 18.1 H Plt Count 187 MPV 10.3 Phosphorus 4.2 Albumin 2.6 L (1) AMS (altered mental status) Altered mental status type: unspecified Qualified Code(s): R41.82 - Altered mental status, unspecified
[2025-11-10] MEDS ORDERED: ONDANSETRON INJ 2 MG/ML 2 ML VIAL IV PRN (11:10)
[2025-11-10] MEDS ORDERED: LORazepam 1 MG TAB SL PRN (11:10)
[2025-11-10] MEDS ORDERED: ATROPINE SULFATE 1% OP SOLN 5 ML BTL SL PRN (11:10)
[2025-11-10] MEDS ORDERED: PHA DELIRIUM CONSULT PRN (12:06)
--- NOTE | 2025-11-10 14:46 | Hospitalist Progress Note ---
Date of Service November 10, 2025 Assessment & Plan (1) Acute metabolic encephalopathy: (2) End-stage renal disease on hemodialysis: (3) UTI (urinary tract infection) due to urinary indwelling Albert catheter: (4) Chronic hypoxic respiratory failure, on home oxygen therapy: (5) Chronic heart failure with preserved ejection fraction: (6) Hypertension, uncontrolled: (7) Hx of cancer of lung: (8) Expressive aphasia: Plan Patient 85-year-old gentleman with metabolic encephalopathy most likely due to multiple etiologies including possible UTI, end-stage renal disease, medications. Extensive conversation with patient's son and [id number] at bedside. Patient's overall health has been declining over the last few weeks. Has not been tolerating hemodialysis well. They know patient would not choose to have this type of quality of life. We discussed continuing with interventional care versus transitioning to comfort measures. Answered their questions about hospice care. Ultimately son made the decision to transition to comfort measures only. Requesting hospice care back at [facility] preferably in his personal care apartment. Case management notified. Coordinating hospice care at [facility]. Anticipate discharge tomorrow Comfort measure orders initiated 65 minutes spent in visitation and communication with family at bedside, evaluation of patient, review of medical records, interpretation of data, communication with specialist, documentation, orders. Admission and Anticipated Discharge Date Admission Date: November 09, 2025 Subjective Patient is awake this morning. Unable to understand any of his response to questions. Nursing reports no acute issues overnight. Reports that mental status might be slightly improved when compared to admission yesterday Physical Exam Physical Exam: Constitutional: Alert, frail, weak HEENT: Mucous membranes dry Lungs: decreased breath sounds, coarse CV: S1-S2, regular, hemodialysis catheter right chest/subclavicular Abdomen: Soft, nontender, nondistended Extremities: Trace edema Neuro: Generally weak, unintelligible speech, disoriented Psych: Cooperative, Results & Data Results & Data Vital Signs (Past 12 Hours) Vital Signs Temp Pulse Pulse Resp BP Pulse Ox O2 Del Method 11/10/25 11:55 Room Air 11/10/25 07:35 36.5 C 59 L 20 188/71 H 93 Nasal Cannula 11/10/25 05:29 52 L O2 Flow Rate 11/10/25 11:55 11/10/25 07:35 2 11/10/25 05:29 Diagnostic Findings Reviewed imaging, laboratory and diagnostic studies. Pertinent findings as below. WBCs 4.4 Hemoglobin 10.4 Platelets 197 Creatinine 5.3 Hemoglobin A1c 4.3% Urine culture, pinpoint growth Blood cultures no growth to date
[2025-11-10] MEDS ORDERED: AZTREONAM 1,000 MG in DEXTROSE 5% MINI-B 100 ML IV SCH (16:00)
--- NOTE | 2025-11-10 16:55 | Electrocardiogram Report ---
Test Reason : Blood Pressure : */* mmHG Vent. Rate : 69 BPM Atrial Rate : 69 BPM P-R Int : * ms QRS Dur : 82 ms QT Int : 438 ms P-R-T Axes : 63 42 84 degrees QTcB Int : 469 ms Sinus rhythm with rbbb Premature atrial complexes in a pattern of bigeminy with aberrant conduction Left ventricular hypertrophy with repolarization abnormality ( Sokolow-Mittal , Romhilt-Blanchard ) Abnormal ECG When compared with ECG of 11-Oct-2025 11:59, Minimal criteria for Inferior infarct are no longer Present Confirmed by Reymundo Mckeon ([id number]) on 11/10/2025 4:54:45 PM Referred By: Confirmed By: Reymundo Mckeon
[2025-11-10] MEDS: MoRPHine SULFATE 10 MG/0.5 ML UDP PO PRN (17:38)
[2025-11-10 23:49] VITALS: BP 183/64; PULSE 54; RESP 17; TEMP 97.3; O2SAT 93
--- NOTE | 2025-11-11 11:25 | Discharge Summary ---
Discharge Summary Date of Service November 11, 2025 Principal Dx & Hospital Course #1 = Principal Diagnosis (1) Acute metabolic encephalopathy: (2) End-stage renal disease on hemodialysis: (3) UTI (urinary tract infection) due to urinary indwelling Liu catheter: (4) Chronic hypoxic respiratory failure, on home oxygen therapy: (5) Chronic heart failure with preserved ejection fraction: (6) Hypertension, uncontrolled: (7) Hx of cancer of lung: (8) Expressive aphasia: Plan Patient 85-year-old gentleman who has been declining over the past several months and doing poorly with hemodialysis. Brought to the emergency room for altered mental status. Patient in extensive workup without any definitive acute findings. Possibly early urinary tract infection from his indwelling liu. Possibly medication reaction. With some hydration and observation patient's mental status we did not improve all that significantly. Patient's family had been contemplating stopping hemodialysis and transitioning to comfort measures. The day prior to discharge had extensive conversation with the family at the bedside. Reviewed options and prognosis. After this conversation patient made educated and informed decision to transition to comfort measures. They requested the patient return to [facility] with hospice. Case management was involved. They help coordinate with hospice care organization to work with the patient and the family at [facility]. He will be discharged there for hospice care Notes For Next Care Provider Call hospice first with any questions or concerns. Goal was to keep patient comfortable at [facility] Medication Changes From Visit Multiple medications discontinued Comfort measure meds including Roxanol and Ativan started Admission HPI Per Admitting Provider Patient is 85 year old male with PMH chronic HFpEF, CAD s/p stent, h/o in-stent restenosis , PVD, history AAA repair, TIA, history of carotid endarterectomy, HTN, HLD, history of lung cancer s/p surgery, chronic anemia, ESRD on HD, chronic hypoxic respiratory failure on 2L oxygen and others listed below presented to ER from [facility] for AMS today. Per inpatient chart review Recent [facility] hospitalization 10/11/2025-10/14/2025 for UTI treated with 3 days IV Rocephin. Urine culture grew out Elke that was felt to be colonization. Per ER physician and [facility] staff patient last known well around 3:00PM yesterday. It is reported patient was found this morning to be somnolent and not arousable and was sent to ER. Discussion with patient's Son, Reymundo on Phone. Reymundo lives in [place]. Son states that he talks to patient on phone daily however didn't talk to him yesterday as he didn't answer his phone. It is reported two days ago talked to him on phone and was able to converse and seemed to be at his recent baseline. Son states in past month significant change in patient with physical and cognitive decline. Son reports was previously in personal care at [facility] but now in jail and since son reports patient has been confused frequently thinking he in hospital and not at SNF. Reports patient decreased appetite and decreased oral intake and recurrent falls. Son reports has had multiple conversations with patient that if he would decline he would wish to pursue palliative approach, however has been continuing HD for now. Per review of [facility] medications patient was started on Bactrim on 11/07/25 for UTI. UA and urinalysis unable for review at this time. Admission Exam Per Admitting Provider See H&P Discharge Exam Constitutional: Sleepy, did awaken, minimally responsive HEENT: Mucous membranes dry Lungs: Decreased, coarse breath sounds CV: S1-S2, regular Abdomen: Soft, nontender, nondistended Extremities: No significant edema Neuro: Facial droop, expressive aphasia, global weakness Psych: Sleepy Updated Medication List Medication Instructions Recorded Confirmed Type allopurinol 100 mg tablet 100 mg PO WK 08/24/21 11/09/25 History cholecalciferol (vitamin D3) 50 50 mcg PO QAM 08/24/21 11/09/25 History mcg (2,000 unit) tablet (Vitamin D3) clopidogrel 75 mg tablet 75 mg PO QAM 08/24/21 11/09/25 History aspirin 81 mg tablet,delayed 81 mg PO 3XWK 01/02/24 11/09/25 History release albuterol sulfate 90 mcg/actuation 2 puff inhalation Q6H PRN 03/18/25 11/09/25 History aerosol inhaler Cough/Wheezing bisacodyl 10 mg rectal suppository 10 mg OK Q24H PRN Constipation 03/18/25 11/09/25 History famotidine 10 mg tablet 10 mg PO HS 03/18/25 11/09/25 History nitroglycerin 0.4 mg sublingual 0.4 mg sublingual DIRECTED PRN 03/18/25 11/09/25 History tablet Chest Pain sennosides 8.6 mg-docusate sodium 1 tab-cap PO HS 03/18/25 11/09/25 History 50 mg tablet (Senna Plus) tamsulosin 0.4 mg capsule 0.4 mg PO DAILY 03/18/25 11/09/25 History calcium carbonate 500 mg PO Q6H PRN Indigestion 08/21/25 11/09/25 History hydrocortisone 2.5 % topical cream 1 applic topical Q6H PRN Rectal 08/21/25 11/09/25 History with perineal applicator Pain/Itchiness (Procto-Med HC) calcium carbonate (Tums) 250 mg (1.25 x 200 mg calcium (500 08/24/25 11/09/25 Rx mg)) PO QID PRN dyspepsia #30 tabs melatonin 3 mg tablet 3 mg PO HS PRN sleep #30 tabs 08/24/25 11/09/25 Rx pantoprazole 40 mg tablet,delayed 40 mg PO QAM #30 tabs 08/24/25 11/09/25 Rx release ranolazine 500 mg tablet,extended 500 mg PO BID #30 tabs 08/24/25 11/09/25 Rx release,12 hr acetaminophen 325 mg tablet 650 mg PO Q4H PRN PAIN/TEMP >100F 10/11/25 11/09/25 History (Tylenol) amlodipine 5 mg tablet 5 mg PO DAILY 10/11/25 11/09/25 History atorvastatin 10 mg tablet 10 mg PO HS 10/11/25 11/09/25 History ipratropium 0.5 mg-albuterol 3 mg 3 ml inhalation Q8H PRN 10/11/25 11/09/25 History (2.5 mg base)/3 mL nebulization CONGESTION/WHEEZING soln isosorbide mononitrate 60 mg 60 mg PO QAM 10/11/25 11/09/25 History tablet,extended release 24 hr lutein 25 mg-zeaxanthin 5 mg 1 cap PO 3XWK 10/11/25 11/09/25 History capsule (Ocuvite Blue Light) metoprolol succinate 25 mg 25 mg PO BID 10/11/25 11/09/25 History tablet,extended release 24 hr sulfamethoxazole 800 0.5 tab PO QPM 10/11/25 11/09/25 History mg-trimethoprim 160 mg tablet (Bactrim DS) hydrocortisone 2.5 % topical cream 1 applic topical Q6H PRN Rectal 11/09/25 11/09/25 History Discomfort sodium phosphates 19 gram-7 118 ml OK DAILY PRN Constipation 11/09/25 11/09/25 History gram/118 mL enema (Fleet Enema) torsemide 40 mg tablet 40 mg PO DAILY 11/09/25 11/09/25 History zinc oxide-cod liver oil 40 % 1 applic topical DAILY PRN Rash 11/09/25 11/09/25 History topical paste (Desitin) lorazepam 1 mg tablet 1 mg sublingual Q4H PRN 11/11/25 Rx discomfort/anxiety/aggitation #10 tabs morphine concentrate 100 mg/5 mL 5 mg (0.25 mL) PO Q1H PRN 11/11/25 Rx (20 mg/mL) oral solution discomfot/dyspnea/pain #30 mL ondansetron HCl 4 mg tablet 4 mg PO Q4H PRN Nausea And 11/11/25 Rx Vomiting #20 tabs Hospital Stay Data Consultations 11/09/25 11:42 ED Decision to Admit Stat 11/09/25 12:58 Consult Nephrology Routine Diagnostic Imagining Performed 11/09/25 10:15 CT angio head w con Stat CT angio neck with con Stat CT head/brain wo con Stat 11/10/25 08:00 CT head/brain wo con DAILY Reviewed imaging, laboratory and diagnostic studies. Pertinent findings as below. WBCs 4.4 Hemoglobin 10.4 Platelets of 187 Electrolytes stable Creatinine 5.3 Glucose 146 Hemoglobin A1c 4.3% Urine drug screen negative Blood cultures no growth to date Urine culture growing Elke albicans, contaminant/colonization Pending Results Patient Have Any Pending Studies at Discharge: Yes Discharge Instructions Given to Patient (Per Discharging Provider) Call hospice first with any questions, concerns, discomfort. Total Time Total Time Spent Total Time Spent (In Minutes): 36
== END 2025-11-11 13:05 | disposition hospice, inpatient (51) | DRG 698 ==
LOC: ED 10:03 → SUATTDRO 13:15 → EDINP 13:15 → 2N 17:16 → 3N 11-10 23:45